=== PATIENT | female | born 1975 | race Caucasian/White ===

== ENCOUNTER 2018-02-21 12:24 | Emergency (ER) | payer MEDICAID, SELFPAY ==
[2018-02-21 12:25] VITALS: BP 154/116; PULSE 104; RESP 17; TEMP 36.1; O2SAT 97; BMI 46.7
--- NOTE | 2018-02-21 12:34 | RAD_ITS ---
STUDY: X-RAY - LEFT FOOT CLINICAL: Female, 42 years old. Lateral pain following injury. TECHNIQUE: 3 view(s) of the foot. COMPARISON: Comparison is made with prior study dated April 23, 2017. FINDINGS: There is a plantar calcaneal spur. Normal visualized subtalar, talonavicular, calcaneocuboid, tarsal and tarsometatarsal articulations. Cancellous screw is seen in the proximal portion of the fifth metatarsal. This is unchanged. Normal metatarsophalangeal joint of the great toe. There is a bipartite tibial sesamoid. Normal interphalangeal joint of the great toe. Normal phalanges of the great toe. Normal second through fifth metatarsophalangeal joints. Normal interphalangeal joints and phalanges of the lesser toes. The soft tissue structures are unremarkable. RAD/Foot min 3 Views IMPRESSION: Status post cancellous screw fixation at the base of the fifth metatarsal. Small plantar spur. No acute abnormality is seen. Electronically Signed: Estevan Ledezma MD at 12:54 EDT Tel [phone], Service support ,
[2018-02-21 13:08] VITALS: BP 143/73; PULSE 86; RESP 15; O2SAT 97
--- NOTE | 2018-02-21 13:13 | ED.DCSUM_ITS ---
- ER Visit Summary Date of Service: 02/21/18 Chief Complaint: [Injury left foot History of Present Illness: ] Patient presents with injury to her left foot that occurred this morning while she was walking down some steps. Patient states that she missed a step and jammed her foot injuring it. Patient was able to catch herself and and actually fall the ground. Patient had prior fracture to that left foot about a year ago and has a screw in the fifth metacarpal. Patient able to bear some weight but painful. Physical Examination: [Left foot-patient has tenderness over the dorsal lateral aspect of the left foot and over the fifth metatarsal. No obvious deformity. Minimal soft tissue swelling. No ecchymosis or bruising noted. Neurovascularly intact.] Test Results: [X-ray of the left foot obtained showed no fractures] Emergency Department Course and Treatment: [Salvatore wrap and crutches] Treatment Plan: [Patient received 12 Barbeau for severe pain as she states ibuprofen does not help her pain at home.] Disposition: [Discharged home in stable condition ] Impression: [Left foot contusion/sprain] This note was generated with [employer] dictation software. It may contain incorrect words, spelling, and punctuation that were not noted in review of the chart prior to signing ED Disposition - Plan for ED Patient: Chief Complaint: Lower Extremity Injury Referrals: Care Physician,No Primary [Primary Care Provider] -
--- NOTE | 2018-02-21 13:13 | ED.DEP ---
ED Disposition - Plan for ED Patient: Chief Complaint: Lower Extremity Injury Instructions: ED Sprain Foot Prescriptions: Hydrocodone Bitart/Apap 5-325 [[place] 5MG-325MG] 1 tab PO Q4H PRN PRN 2 Days #10 tab PRN Reason: Pain Referrals: Care Physician,No Primary [Primary Care Provider] - Enid Adhikair DO [STAFF PHYSICIAN] - 5-7 Days
== END 2018-02-21 13:26 | disposition home or self-care (01) ==
LOC: ED 12:38
PROVIDERS: Emergency Provider Emergency Medicine
DX: S90.32XA Contusion of left foot, initial encounter (principal); S93.602A Unspecified sprain of left foot, initial encounter; X50.9XXA Other and unspecified overexertion or strenuous movements or postures, initial encounter; Y93.01 Activity, walking, marching and hiking; Y92.008 Other place in unspecified non-institutional (private) residence as the place of occurrence of the external cause; Y99.8 Other external cause status
CPT/HCPCS: 73630; 99283

== ENCOUNTER 2019-02-09 04:35 | Emergency (ER) | payer OTHER, SELFPAY ==
[2019-02-09 04:35] VITALS: BP 182/101; PULSE 112; RESP 18; TEMP 36.2; O2SAT 94; BMI 49.4
--- NOTE | 2019-02-09 04:38 | ED.RN ---
CALL LUIS BARROSO AT [phone] WHEN DISCHARGED FOR TRANSPORTATION
--- NOTE | 2019-02-09 04:42 | RAD_ITS ---
STUDY: X-RAY - LEFT HAND REASON FOR EXAM: Female, 43 years old. Slammed hand in door, pain in thumb and wrist TECHNIQUE: 3 view(s) of the hand. COMPARISON: 11/09/2015 FINDINGS: Normal radiocarpal articulation. Normal distal radioulnar joint. Normal visualized carpal bones. Normal carpal articulations Normal carpometacarpal articulation of the thumb. Normal second through fifth carpometacarpal joints. Healed fifth metatarsal boxer type injury with otherwise normal metacarpi. Normal metacarpophalangeal joint of the thumb. Normal interphalangeal joint of the thumb. Normal proximal and distal phalanges of the thumb. Normal metacarpophalangeal joints of the second through fifth fingers. Normal proximal and distal interphalangeal joints of the second through fifth fingers. Normal phalanges of the second through fifth fingers. The soft tissue structures are unremarkable. RAD/Hand Min 3 Views IMPRESSION: There is no acute displaced fracture or dislocation. Electronically Signed: Lesa Barraza MD at 5:12 EDT , Service support ,
--- NOTE | 2019-02-09 05:26 | ED.VISSUMM ---
- ER Visit Summary Date of Service: 02/09/19 Chief Complaint: Left thumb pain History of Present Illness: The patient is a 43 F who presents with left thumb pain. She was at work working on a car door. She was polishing the door when it shifted and she pinched her thumb between the door and the table it was sitting on. Physical Examination: Afebrile heart rate 112 Patient appears uncomfortable No obvious signs of trauma such as lacerations contusions abrasions or soft tissue swelling but she does have tenderness diffusely over the left thumb without bony deformity no focal bony tenderness brisk capillary refill with normal sensation Test Results: Hand x-ray negative Emergency Department Course and Treatment: Patient advised on supportive care including ice and elevation. She was discharged home. Treatment Plan: [] Disposition: Discharge Impression: Thumb contusion This note was generated with [employer] dictation software. It may contain incorrect words, spelling, and punctuation that were not noted in review of the chart prior to signing ED Disposition - Plan for ED Patient: Referrals: Care Physician,No Primary [Primary Care Provider] -
--- NOTE | 2019-02-09 05:27 | ED.DEP ---
ED Disposition - Plan for ED Patient: Instructions: ED Contusion Upper Ext Referrals: Care Physician,No Primary [Primary Care Provider] -
[2019-02-09 05:40] VITALS: BP 144/98; PULSE 102; RESP 16; O2SAT 97
== END 2019-02-09 05:46 | disposition home or self-care (01) ==
PROVIDERS: Emergency Provider Emergency Medicine
DX: S60.012A Contusion of left thumb without damage to nail, initial encounter (principal); W23.0XXA Caught, crushed, jammed, or pinched between moving objects, initial encounter; Y93.9 Activity, unspecified; Y92.9 Unspecified place or not applicable
CPT/HCPCS: 73130; 99282

== ENCOUNTER 2019-03-11 02:32 | Emergency (ER) | payer OTHER, SELFPAY ==
[2019-03-11 02:33] VITALS: BP 170/106; PULSE 106; RESP 24; TEMP 36.9; O2SAT 97; BMI 50.5
--- NOTE | 2019-03-11 02:45 | ED.RN ---
PER DRUG SCREEN FOLLOWUP WITH [facility]
--- NOTE | 2019-03-11 02:55 | RAD_ITS ---
STUDY: X-RAY - LEFT HAND REASON FOR EXAM: Female, 43 years old. Left hand pain status post crush injury and laceration. TECHNIQUE: 3 view(s) of the hand. COMPARISON: 02/09/2019 FINDINGS: Normal radiocarpal articulation. Normal distal radioulnar joint. Normal visualized carpal bones. Normal carpal articulations Normal carpometacarpal articulation of the thumb. Normal second through fifth carpometacarpal joints. Old healed fracture deformity of the fifth metacarpal Normal metacarpophalangeal joint of the thumb. Normal interphalangeal joint of the thumb. Normal proximal and distal phalanges of the thumb. Normal metacarpophalangeal joints of the second through fifth fingers. Normal proximal and distal interphalangeal joints of the second through fifth fingers. Normal phalanges of the second through fifth fingers. Mild soft tissue swelling overlying the ulnar aspect of the hand. RAD/Hand Min 3 Views IMPRESSION: Ulnar soft tissue swelling of the hand with no underlying fracture or dislocation. Electronically Signed: Blaine Gabriel MD at 3:26 EDT Tel , Service support ,
[2019-03-11] MEDS: Diphth,Pertuss(Acell),Tet Vac 0.5 ML Vial IM (03:03)
--- NOTE | 2019-03-11 03:42 | ED.VISSUMM ---
- ER Visit Summary Date of Service: 03/11/19 Chief Complaint: Left hand injury History of Present Illness: The patient is a 43 F who was at work tonight. Patient states she was walking past a conveyor belt when 1 of the parts fell off the conveyor belt striking her left hand. She is a laceration noted along the fifth MCP joint. She is right-hand dominant. Physical Examination: Blood pressure is 170/106, otherwise vitals normal. Patient sitting upright in bed no acute distress. She is anxious. Left upper extremity examination with a 2 cm laceration on the proximal phalanx and over the MCP of the left fifth finger. There is mild bony tenderness. No deformity noted. She has normal cap refill and sensation. Test Results: Left hand x-rays reveal ulnar soft tissue swelling with no evidence of fracture. Emergency Department Course and Treatment: Tetanus update is provided. Wound was locally anesthetized with 2 cc of 1% lidocaine. Wound is irrigated and skin is closed with 4 simple interrupted sutures of 5-0 nylon. Dressing is applied and wound care is discussed. She will follow-up with med . Treatment Plan: [] Disposition: Discharge Impression: Left hand laceration status post suture This note was generated with [employer] dictation software. It may contain incorrect words, spelling, and punctuation that were not noted in review of the chart prior to signing ED Disposition - Plan for ED Patient: Disposition: Home or Assisted Living Instructions: ED Laceration Hand Referrals: JANELLE LUIS [GROUP OF PHYSICIANS] - 7 Days for suture removal
[2019-03-11 04:51] VITALS: PULSE 87; RESP 18; O2SAT 99
--- NOTE | 2019-03-11 04:52 | ED.RN ---
THIS NURSE REVIEWED D/C INSTRUCTIONS WITH PT. PT VERBALIZED UNDERSTANDING OF INSTRUCTIONS. PT DENIES FURTHER NEEDS OR QUESTIONS AT THIS TIME. PT AMBULATES FROM ROOM ON OWN WITHOUT ASSISTANCE FROM STAFF
== END 2019-03-11 04:53 | disposition home or self-care (01) ==
PROVIDERS: Emergency Provider Emergency Medicine
DX: S61.412A Laceration without foreign body of left hand, initial encounter (principal); Z23 Encounter for immunization; J45.909 Unspecified asthma, uncomplicated; I10 Essential (primary) hypertension; W26.8XXA Contact with other sharp object(s), not elsewhere classified, initial encounter; Y93.01 Activity, walking, marching and hiking; Y92.89 Other specified places as the place of occurrence of the external cause; Y99.0 Civilian activity done for income or pay
CPT/HCPCS: 12001; 73130; 90471; 90715; 99283

== ENCOUNTER 2019-09-20 17:39 | Emergency (ER) | payer MEDICAID, SELFPAY ==
[2019-09-20 17:41] VITALS: BP 126/87; PULSE 103; RESP 20; TEMP 36.3; O2SAT 96; BMI 48.9
--- NOTE | 2019-09-20 17:56 | RAD_ITS ---
STUDY: X-RAY CHEST REASON FOR EXAM: Female, 43 years old. COUGH FOR A MONTH BUT GETTING WORSE TECHNIQUE: 2 views COMPARISON: Prior chest radiograph of February 24, 2016 FINDINGS: The lungs are clear and expanded. There is no demonstrated pleural abnormality. Normal size heart. Normal mediastinum and misti. Normal visualized pulmonary arteries. Normal visualized aortic arch and descending thoracic aorta. Degenerative disc findings of the lumbar spine and an increase lower thoracic kyphosis. Normal visualized ribs, clavicles, and shoulders. Status post cholecystectomy. RAD/Chest PA and Lateral IMPRESSION: No acute cardiopulmonary findings or changes. Negative for consolidation, atelectasis, pleural effusion or cardiomegaly. Electronically Signed: Katelynn Cade MD at 18:29 EST , Service support ,
--- NOTE | 2019-09-20 17:57 | ED.DCSUM_ITS ---
- ER Visit Summary Date of Service: 09/20/19 Chief Complaint: Cough and chest pain History of Present Illness: The patient is a 43 F who presents with cough and chest pain that is been getting worse over the past couple days. Patient states she started having pain in her upper chest last night that is worse with coughing and deep breathing. Patient describes the pain is constant and aching but sharp with coughing and deep breathing. Patient denies any fevers or chills. Patient denies any sputum production. Patient denies any rhinorrhea, sore throat, sinus pressure, headache, nausea, vomiting, or diarrhea. Physical Examination: Vital signs are stable. Patient is afebrile. Patient is in no acute distress. Neck is supple. Trachea is midline. There is no JVD. Heart was regular rate and rhythm. Lungs showed scattered rhonchi. There is good respiratory effort noted. Abdomen is soft. Bowel sounds are normal. There is no tenderness. Cranial nerves II through XII are intact. There are no focal motor or sensory deficits noted. Extremities are intact. There is no calf tenderness or edema. Test Results: PA and lateral chest x-ray was obtained. There is no acute cardiopulmonary process. This was interpreted by the radiologist and myself. Emergency Department Course and Treatment: Patient was advised that this is most likely a bronchitis which is a viral infection. Patient was instructed to follow-up with her primary care physician in 5 to 7 days. Patient was instructed to take Tylenol or ibuprofen as needed for pain. Patient understood and was agreeable with the plan. All questions were answered. Disposition: Discharge home Impression: Viral bronchitis This note was generated with [employer] dictation software. It may contain incorrect words, spelling, and punctuation that were not noted in review of the chart prior to signing ED Disposition - Plan for ED Patient: Disposition: Home or Assisted Living Diagnosis: Viral bronchitis Instructions: BRONCHITIS, No Antibiotic (Adult) Prescriptions: Albuterol Inhaler [Ventolin Hfa] 2 puff INHALATION Q4H PRN PRN #1 inhaler PRN Reason: Wheezing Prescription Printed Referrals: Care Physician,No Primary [Primary Care Provider] - Donny Martinez MD [STAFF PHYSICIAN] - 5-7 Days
[2019-09-20 18:54] VITALS: RESP 16
== END 2019-09-20 18:54 | disposition home or self-care (01) ==
PROVIDERS: Emergency Provider Emergency Medicine
DX: J20.8 Acute bronchitis due to other specified organisms (principal); E66.9 Obesity, unspecified
CPT/HCPCS: 71046; 99282

== ENCOUNTER 2019-11-02 10:43 | Emergency (ER) | payer MEDICAID, SELFPAY ==
[2019-11-02 10:45] VITALS: BP 152/93; PULSE 87; RESP 18; TEMP 36.7; O2SAT 97; BMI 48.0
--- NOTE | 2019-11-02 11:07 | CT_ITS ---
STUDY: CT ABDOMEN AND PELVIS WITHOUT CONTRAST REASON FOR EXAM: Female, 43 years old. LT FLANK PAIN RADIATING TO LT SIDE -- HX-KIDNEY STONES -- SURG-GB,TUBAL, RADIATION DOSAGE (If Supplied By Facility): CTDIvol = ( 33.60 ) mGy, DLP = ( 1889.03 ) mGycm TECHNIQUE: Transaxial images were obtained from the dome of the diaphragm to the symphysis pubis without oral contrast, and without intravenous contrast. Sagittal and coronal images were reconstructed. Individualized dose optimization techniques were used for this CT. COMPARISON: None. FINDINGS: The visualized lung bases are unremarkable. The visualized portions of the heart are within normal limits. 5 mm calcified granuloma in the posterior superior aspect of the right lobe of the liver. There are surgical clips in the gallbladder fossa consistent with a prior cholecystectomy. Normal spleen. Normal pancreas. Normal bilateral adrenal glands. Tiny calculus in the mid posterior pole of the right kidney. Normal left kidney. Normal visualized stomach. Normal small intestine. Normal colon. The appendix is visualized and appears normal. Normal abdominal aorta. Normal inferior vena cava. There is borderline retroperitoneal lymphadenopathy with enlarged nodes no greater than 10mm in the short axis diameter. Normal urinary bladder. Normal abdominal wall. Degenerative changes and spondylosis at the T11-T12 region. CT/Abdomen/Pelvis without Cont IMPRESSION: No acute abnormality is seen. Electronically Signed: Estevan Ledezma, at 12:48 EST , Service support ,
--- NOTE | 2019-11-02 11:08 | ED.VISSUMM ---
- ER Visit Summary Date of Service: 11/02/19 Chief Complaint: Atraumatic left flank pain History of Present Illness: The patient is a 43 F history of prior kidney stones, cholecystectomy and tubal ligation. Patient says she had 2-day history of left flank pain is gotten worse. No radiation. Nothing particularly makes it better or worse. She denies any fall or trauma. She denies any dysuria or hematuria. Denies any fever or chills. No trouble breathing or cough. Physical Examination: Middle-aged female. Vital signs are stable afebrile. She does not look septic or toxic. She is in no distress. H EENT exam unremarkable. Neck nontender. Lungs clear to auscultation bilaterally. Equal symmetrical. Heart regular rate and rhythm no murmur. Rate about 85. Anterior chest wall nontender. Abdomen obese but soft nontender normal bowel sounds no peritoneal signs. No abdominal tenderness. Back she has right CVA tenderness is reproducible. This could be musculoskeletal pain. There is no signs of trauma. There is no redness or warmth or bruising. Spine is nontender. Extremities moves all 4. Neurovascular intact. Nontender no edema no cords. Neurologically she is awake alert with no focal motor deficits. Test Results: Chemistries normal normal creatinine and gap. UA 10-25 white cells no epithelial cells no red cells no nitrates 3+ bacteria culture will be sent. CT flank study shows no acute abnormality read both by the radiologist and reviewed by myself. There is no obvious kidney stone. No hydronephrosis or hydroureter. Emergency Department Course and Treatment: Left flank pain with history of kidney stones. It is reproducible this may be musculoskeletal but she denies any trauma or injury. Should be treated with IV Toradol. Labs and CT will be obtained along with urinalysis. Doing well on repeat exam at 1440 4 PM. She and I discussed diagnosis and treatment plan and follow-up. Treatment Plan: Urine culture be sent. Given her urine and the flank pain and no stone should be treated for suspected UTI. Given a dose of Rocephin IV for possible pyelonephritis. With the patient not looking septic, toxic or dehydrated. And afebrile cart with her being discharged home be treated as an outpatient. Keflex 500 4 times daily for 10 days. Follow-up with her primary care physician. Tylenol Motrin for pain. Disposition: Discharge Impression: Acute left flank pain secondary to Pyelonephritis This note was generated with [employer] dictation software. It may contain incorrect words, spelling, and punctuation that were not noted in review of the chart prior to signing ED Disposition - Plan for ED Patient: Disposition: Home or Assisted Living Instructions: PYELONEPHRITIS, Female (Adult) Prescriptions: Cephalexin [Keflex] 500 mg PO Q6 #40 cap Prescription Printed Referrals: Andrea Stone MD [NON-STAFF] - 3-5 Days if not improving Additional Instructions: Fluids and rest. Tylenol and Motrin for pain. Antibiotic Keflex 1 pill 4 times a day for 10 days. Follow-up with an eye doctor. Return if feeling worse.
[2019-11-02 11:41] LABS: Anion Gap 4 (5-15); BUN 9 mg/dL (7-18); BUN/Creat Ratio 13.2 RATIO (10-20); Chloride 107 mmol/L (98-107); Creatinine, Serum 0.68 mg/dL (0.55-1.02); EST Glomerular Filtration Rate 100 mL/min (>60); Est Glom Filt Rate - Afr Amer 121 mL/min (>60); Estimated Creatinine Clearance 104.81 ml/min; Glucose 96 mg/dL (74-106); Potassium 3.9 mmol/L (3.5-5.1); Sodium Level 140 mmol/L (136-145)
[2019-11-02] MEDS: Ketorolac 30 MG/ML Syringe IV (12:04)
[2019-11-02 12:19] LABS: Color, Urine Yellow (Yellow); Glucose, Dipstick Normal (Normal); Ketone-Dipstick Negative (Negative); Leukocyte Esterase-Dipstick 500 /ul (Negative); Mucous, Urine 0 SEEN /hpf (<or=2+); Nitrite-Dipstick Negative (Negative); Occult Blood-Urine Negative /ul (Negative); Protein-Dipstick Negative (Negative); Red Blood Cells-Urine 0 SEEN /hpf (0-5); Urine Bilirubin Dipstick Negative (Negative); Urine Clarity Sl. Cloudy (Clear); Urine Urobilinogen Normal (Normal); Urine pH 6.5 (5.0 - 8.0)
[2019-11-02 12:28] LABS: Bacteria 3+ /hpf (None Seen); Squamous Epithelial Cells - UA 0-5 SEEN /hpf (5-10); White Blood Cells 10-25 SEEN /hpf (0-5)
--- NOTE | 2019-11-02 13:58 | ED.DEP ---
ED Disposition - Plan for ED Patient: Disposition: Home or Assisted Living Instructions: PYELONEPHRITIS, Female (Adult) Prescriptions: Cephalexin [Keflex] 500 mg PO Q6 #40 cap Prescription Printed Referrals: Andrea Stone MD [NON-STAFF] - 3-5 Days if not improving Additional Instructions: Fluids and rest. Tylenol and Motrin for pain. Antibiotic Keflex 1 pill 4 times a day for 10 days. Follow-up with an eye doctor. Return if feeling worse.
[2019-11-02] MEDS: Ceftriaxone 1 GM/50 ML BAG IV (14:19)
[2019-11-02 14:58] VITALS: BP 124/77; PULSE 72; RESP 16; O2SAT 98
== END 2019-11-02 15:00 | disposition home or self-care (01) ==
PROVIDERS: Emergency Provider Emergency Medicine
DX: N10 Acute pyelonephritis (principal); R10.9 Unspecified abdominal pain; Z87.442 Personal history of urinary calculi
CPT/HCPCS: 74176; 80048; 81001; 87086; 87088; 96365; 96375; 99283; J7050; A4216

== ENCOUNTER 2021-12-03 16:37 | Emergency (ER) | payer OTHER, MEDICAID, SELFPAY ==
[2021-12-03 16:37] VITALS: BP 179/96; PULSE 100; RESP 18; TEMP 36.1; O2SAT 97; BMI 43.0
--- NOTE | 2021-12-03 17:03 | EDS_ITS ---
HPI History of Present Illness HPI Narrative: Patient with right knee injury that occurred 3 days ago. Patient states she twisted her right knee while at work. Patient denies any snapping or popping sensation. Patient states her pain is worse with standing and with ambulation. Patient states it is better with rest. Patient denies any paresthesias or weakness. Patient denies any other injuries. Chief Complaint: Lower Extremity Injury Informant: patient Occured/Mechanism Mechanism/Context: Yes work related Onset/Context/Timing Onset: Days (3) Context: Sudden Onset Timing: Continuous Quality of Pain: Sharp and Throbbing Worsened by: Standing, ambulation Relieved by: Rest Associated Symptoms Associated Symptoms: Negative for Parasthesia, Weakness and Loss of Funtion PFSH PFSH Medical History no medical history no medical history Home Medications albuterol sulfate 2 puff INHALATION Q4H PRN PRN #1 inhaler 09/20/19 [Rx Last Taken Unknown] cephalexin 500 mg PO Q6 #40 cap 11/02/19 [Rx Last Taken Unknown] Allergy/AdvReac Type Severity Reaction Status Date / Time naproxen [From Naprosyn] AdvReac Vomiting Verified 12/03/21 16:39 Surgical History Hx of cholecystectomy Hx of foot surgery Hx of tonsillectomy Social History Smoking Status: Never smoker ROS ROS ED Constitutional Constitutional ED: Denies chills or fever(s) Eyes Eyes: Denies blurry vision or change in vision ENT ENT ED: Denies rhinorrhea or sore throat Cardiovascular Cardiovascular: Denies chest pain or palpitations Respiratory/Chest Respiratory/Chest: Denies cough or dyspnea Gastrointestinal Gastrointestinal: Denies nausea or vomiting Genitourinary Genitourinary ED: Denies dysuria or hematuria Musculoskeletal Musculoskeletal: Denies back pain or neck pain Integumentary Denies abscess or rash Neurologic Neurologic: Denies headache(s) or weakness Allergic/Immunologic Allergic/Immunologic ED: Denies mouth swelling or urticaria EXAM Physical Exam Const Vital Signs: 12/03/21 16:37 Temperature 97 F L Temperature Source Temporal Pulse Rate 100 Respiratory Rate 18 Blood Pressure 179/96 H Blood Pressure Mean 123 Pulse Ox 97 Oxygen Delivery Method Room Air Positive well nourished, well developed and obese General Appearance ED: well developed Nutritional Appearance: obese HEENT Reports moist mucous membranes Neck full ROM Extremity Extremity Narrative: There is diffuse tenderness over the right knee. There is no bony crepitance or step-off. There is no effusion. Range of motion was limited in all motions of the right knee secondary to pain. There is no laxity appreciated. However there was some guarding noted on examination. Strength is 5/5 bilaterally in the lower extremities. There are no sensory deficits noted. Posterior tibial pulses are equal bilaterally. Neuro oriented x3, CN's II-XII intact bilaterally, moves all extremities and no sensor y deficits noted Sensorium / Orientation: alert Motor Exam: strength 5/5 throughout Psych mental status grossly normal MDM MDM MDM Narrative Medical decision making narrative: X-rays of the right knee were obtained. There are 4 views. On my interpretation, there is no acute fracture. There is no dislocation. There is no soft tissue swelling. Radiologist also interpreted the x-rays and agrees. Patient was advised of her findings. Patient was instructed to ice and elevate the right knee. Patient was instructed to take Tylenol or ibuprofen as needed for pain. Patient was instructed to return if worse in any way. Patient was instructed to follow-up with her primary care physician in 5 to 7 days for reevaluation. Patient understood and was agreeable with the plan. All questions were answered. Radiography Diagnostic Testing: Clinical Impression(s) from Imaging Studies Knee X-Ray 12/03/21 17:15 IMPRESSION: Normal x-ray examination of the knee. Electronically Signed: Aaron Flynn MD at 17:48 EST , Discharge Plan Triage Chief Complaint: Lower Extremity Injury ED Provider: Guillermo Hinton Dx/Rx/DC Orders Clinical Impression: Right knee sprain Instructions: ED Knee Sprain Prescriptions: No Action albuterol sulfate 1 INHALER inhaler 2 puff inhalation Q4H PRN PRN (Reason: Wheezing) Qty: 1 RF: 0 cephalexin 500 MG capsule 500 mg PO Q6 Qty: 40 RF: 0 Primary Care Provider: Care Physician,No Primary Referrals: Rafita St MD [STAFF PHYSICIAN] - 5-7 Days Care Physician,No Primary [Primary Care Provider] - Disposition Disposition: Home, Self Care
--- NOTE | 2021-12-03 17:15 | RAD_ITS ---
STUDY: X-RAY - RIGHT KNEE REASON FOR EXAM: Female, 45 years old. Injury/Pain TECHNIQUE: 4 view(s) of the knee. COMPARISON: None. FINDINGS: Normal visualized distal femur. Normal visualized proximal tibia and fibula. Normal proximal tibiofibular articulation. Fragmentation of the tibial tubercle consistent with healed [place]-Schlatter disease. Normal medial femorotibial compartment. Normal lateral femorotibial compartment. Normal patellofemoral articulation. The soft tissue structures are unremarkable. RAD/Knee 4 or More Views IMPRESSION: Normal x-ray examination of the knee. Electronically Signed: Aaron Flynn MD at 17:48 EST ,
== END 2021-12-03 18:47 | disposition home or self-care (01) ==
PROVIDERS: Emergency Provider Emergency Medicine; Visit Provider Emergency Medicine
DX: S83.91XA Sprain of unspecified site of right knee, initial encounter (principal); E66.9 Obesity, unspecified; Y99.0 Civilian activity done for income or pay; X50.1XXA Overexertion from prolonged static or awkward postures, initial encounter
CPT/HCPCS: 73564; 99282

== ENCOUNTER 2022-04-02 15:16 | Emergency (ER) | payer OTHER, MEDICAID, SELFPAY ==
[2022-04-02 15:16] VITALS: BP 153/106; PULSE 100; RESP 18; TEMP 35.9; BMI 47.5
--- NOTE | 2022-04-02 15:27 | RAD_ITS ---
EXAM: XR LEFT FOOT COMPLETE, 3 OR MORE VIEWS CLINICAL INDICATION: injury TECHNIQUE: Frontal, lateral and oblique views of the left foot. This report was created using [employer] report generation technology. COMPARISON: XR Foot dated 02/21/2018 FINDINGS: BONES/JOINTS: Surgical screw remains in place proximal and midportion of the fifth metatarsal. Plantar calcaneal spur noted. No acute fracture. No subluxation. Normal alignment. Preservation of the joint space. No sclerotic or destructive changes observed. SOFT TISSUES: Unremarkable. No soft tissue swelling or gas. RAD/Foot min 3 Views IMPRESSION: No acute bone or joint abnormality. No interval change. Electronically Signed: Leighton Martinez MD at 15:49 EDT ,
--- NOTE | 2022-04-02 15:28 | ED.VIS.LOWEX ---
HPI History of Present Illness Chief Complaint: Lower Extremity Injury Informant: patient Narrative Narrative: 46-year-old female presents with left foot pain. Patient states that yesterday while going up some steps she thought she had negotiated the last step but hit her toes on the top of the stair. She notes pain of the second toe. She notes that it radiates up onto her foot. She denies any other injuries. PFSH PFSH Medical History no medical history no medical history Home Medications albuterol sulfate 90 mcg/actuation aerosol inhaler 2 puff inhalation Q4H PRN PRN Wheezing ##1 09/20/19 [Rx Last Taken Unknown] cephalexin 500 mg capsule 500 mg PO Q6 #40 caps 11/02/19 [Rx Last Taken Unknown] hydrocodone-acetaminophen 5-325mg 5mg-325mg 1 tab PO Q6H PRN PRN Pain 3 days #10 TABLETS 04/02/22 [Rx Last Taken Unknown] Allergy/AdvReac Type Severity Reaction Status Date / Time naproxen [From Naprosyn] AdvReac Vomiting Verified 12/03/21 16:39 Surgical History Hx of cholecystectomy Hx of foot surgery Hx of tonsillectomy Social History (Updated 04/02/22 @ 15:[address] Wade Khan DO) current gender identity: female Smoking Status: Never smoker ROS ROS ED Constitutional Constitutional ED: Denies chills or weight loss Eyes Eyes: Denies change in vision or diplopia ENT ENT ED: Denies ear pain, rhinorrhea or sore throat Cardiovascular Cardiovascular: Denies chest pain, orthopnea, palpitations or racing heartbeat Respiratory/Chest Respiratory/Chest: Denies cough, dyspnea or orthopnea Gastrointestinal Gastrointestinal: Denies abdominal pain, diarrhea, nausea or vomiting Genitourinary Genitourinary ED: Denies dysuria, hematuria or urinary frequency Musculoskeletal Musculoskeletal: Reports other Details: See history of present illness ; Denies arthralgias or myalgias Integumentary Denies abscess or rash Neurologic Neurologic: Denies headache(s) or weakness Psychiatric Psychiatric: Denies anxiety, depression, suicidal ideation or suicidal thoughts Endocrine Endocrinology: Denies polydipsia, polyphagia or polyuria Allergic/Immunologic Allergic/Immunologic ED: Denies mouth swelling, tongue swelling or urticaria EXAM Physical Exam Const Vital Signs: 04/02/22 15:16 04/02/22 15:16 Temperature 96.7 F L 96.7 F L Temperature Source Temporal Temporal Pulse Rate 100 100 Respiratory Rate 18 18 Blood Pressure 153/106 H 153/106 H Blood Pressure Mean 121 121 Positive well nourished, well developed and obese General Appearance ED: well developed Nutritional Appearance: obese HEENT Reports normocephalic, head/scalp atraumatic and moist mucous membranes Eyes PERRL and EOMs intact bilaterally Neck no lymphadenopathy, supple and no JVD Resp normal respiratory effort and clear to auscultation bilaterally Cardio regular rate, regular rhythm and no murmurs GI normal to inspection, nondistended, normoactive bowel sounds and non-tender Palpation: soft Back/Spine no CVA tenderness and normal ROM Extremity Extremity Narrative: Patient reports tenderness to palpation of the second toe and the third toe. No obvious deformity. No significant swelling or ecchymosis. General Extremety ED: Negative for edema General Extremity: Negative for edema Neuro oriented x3 and CN's II-XII intact bilaterally Sensorium / Orientation: alert Motor Exam: strength 5/5 throughout Psych mental status grossly normal Mood & Affect: Negative for depressed or tearful Skin no rashes or lesions noted and no wounds MDM MDM MDM Narrative Medical decision making narrative: My impression of the plain films of the left foot is no acute fracture. Patiently placed in a postoperative shoe. Follow-up podiatry 10 to 14 days if not improved Discharge Plan Triage Chief Complaint: Lower Extremity Injury ED Provider: Wade Khan Dx/Rx/DC Orders Clinical Impression: Sprain of toe, second, left Instructions: ED Toe Sprain Prescriptions: New hydrocodone-acetaminophen [hydrocodone-acetaminophen] 5-325 mg tablet 1 tab PO Q6H PRN PRN (Reason: Pain) 3 Days Qty: 10 0RF No Action albuterol sulfate 1 INHALER inhaler 2 puff inhalation Q4H PRN PRN (Reason: Wheezing) Qty: 1 0RF cephalexin 500 MG capsule 500 mg PO Q6 Qty: 40 0RF Primary Care Provider: Fransisco Angel Referrals: Baldo Borges DPM [STAFF PHYSICIAN] - As Needed (for podiatry if not improving) Care Physician,No Primary [NON-STAFF] - Disposition Disposition: Home, Self Care
== END 2022-04-02 15:53 | disposition home or self-care (01) ==
PROVIDERS: Emergency Provider Emergency Medicine; PCP Internal Medicine; Visit Provider Emergency Medicine
DX: S93.505A Unspecified sprain of left lesser toe(s), initial encounter (principal); E66.9 Obesity, unspecified; X58.XXXA Exposure to other specified factors, initial encounter
CPT/HCPCS: 73630; 99283

== ENCOUNTER 2022-06-01 11:08 | Outpatient (CLI) | payer OTHER, MEDICAID, SELFPAY ==
--- NOTE | 2022-06-01 11:12 | CT_ITS ---
STUDY: CT BRAIN WITHOUT CONTRAST REASON FOR EXAM: Female, 46 years old. Headaches. RADIATION DOSAGE (If Supplied By Facility): CTDIvol = ( 44.99 ) mGy, DLP = ( 745.49 ) mGycm TECHNIQUE: Transaxial CT imaging of the brain was performed without administration of intravenous contrast material. Individualized dose optimization techniques were used for this CT. COMPARISON: No relevant priors. FINDINGS: Normal soft tissue structures. Normal calvarium. Normal size ventricles and extra-axial spaces for the patient''s age. Normal white matter tracts of the cerebral hemispheres. Normal basal ganglia and thalami. Normal brainstem. Normal cerebellum. There is no intracranial hemorrhage. There are no findings of an acute ischemic infarction. Minimal degree of mucosal thickening along the medial wall of the left maxillary sinus. CT/Brain/Head without Contrast IMPRESSION: Minimal degree of mucosal thickening along the medial wall of the left maxillary sinus. Electronically Signed: Estevan Ledezma MD at 12:08 EDT ,
== END 2022-06-01 23:59 | disposition home or self-care (01) ==
LOC: CT 11:10
PROVIDERS: PCP Internal Medicine; Referring Provider Nurse Practitioner; Visit Provider Nurse Practitioner
DX: R51.9 Headache, unspecified (principal)
CPT/HCPCS: 70450; 85652; 86140

== ENCOUNTER → 2022-06-01 | Outpatient (CLI) | payer OTHER, MEDICAID, SELFPAY ==
[2022-06-01 10:56] LABS: Erythrocyte Sedimentation Rate 18 mm/hr (0-30)
== END | disposition home or self-care (01) ==
LOC: LABSPEC 10:35
PROVIDERS: PCP Internal Medicine; Referring Provider Nurse Practitioner; Visit Provider Nurse Practitioner
DX: R51.9 Headache, unspecified (principal)
CPT/HCPCS: 85652; 86140

== ENCOUNTER 2023-12-25 11:41 | Emergency (ER) | payer MEDICAID, SELFPAY ==
[2023-12-25 11:42] VITALS: BP 154/97; PULSE 97; RESP 16; TEMP 36.2; O2SAT 100; BMI 47.5
[2023-12-25 12:13] VITALS: O2SAT 97
--- NOTE | 2023-12-25 12:13 | EKG12_ITS ---
Test Reason : CP Blood Pressure : / mmHG Vent. Rate : 096 BPM Atrial Rate : 096 BPM P-R Int : 156 ms QRS Dur : 080 ms QT Int : 360 ms P-R-T Axes : 063 -10 056 degrees QTc Int : 454 ms Normal sinus rhythm Minimal voltage criteria for LVH, may be normal variant ( R in aVL ) Borderline ECG Confirmed by MIREYA GALLEGOS, MATA ([id number]), editorial clerk ZACKARY CABEZAS ([id number]) on 12/26/2023 8:59:36 AM Referred By: MESFIN/KULDEEP Confirmed By:MATA GOMES MD
--- NOTE | 2023-12-25 12:14 | EDS_ITS ---
HPI History of Present Illness Chief Complaint: Chest Pain Detail of Chief Complaint: Chest pain Informant: patient Narrative Narrative: Patient presents with chest pain that started 2 days ago. She describes a pressure heaviness in the left chest that does not radiate anywhere. Complains of a headache. She denies falls or injuries. She has not done any lifting. She denies nausea or vomiting. She denies diaphoresis. She does state that she notices it more when she is active. Never completely resolves. She has no history of PE or DVT. No family history of heart disease. She herself has never had a heart attack or stent. She has history of hypertension. Patient was seen by her primary care physician and referred to the emergency department to workup her chest pain. PFSH PFSH Home Medications albuterol sulfate 90 mcg/actuation aerosol inhaler 2 puff inhalation Q4H PRN PRN Wheezing ##1 09/20/19 [Rx Last Taken Unknown] lisinopril 10 mg tablet 10 mg PO DAILY 12/25/23 [History Last Taken Unknown] Allergy/AdvReac Type Severity Reaction Status Date / Time naproxen [From Naprosyn] AdvReac Vomiting Verified 12/25/23 11:43 Surgical History Hx of cholecystectomy Hx of foot surgery Hx of tonsillectomy Social History (Updated 04/02/22 @ 15:[address] Wade Khan DO) Smoking Status: Never smoker ROS ROS ED Review of Systems ROS Unobtainable: other Constitutional Constitutional ED: Reports lethargy; Denies chills, fever(s), sweats or weight loss Eyes Eyes: Denies blurry vision, change in vision or diplopia ENT ENT ED: Denies rhinorrhea or sore throat Cardiovascular Cardiovascular: Reports chest pain; Denies orthopnea or racing heartbeat Respiratory/Chest Respiratory/Chest: Denies cough, dyspnea, dyspnea on exertion, orthopnea or sputum Gastrointestinal Gastrointestinal: Denies abdominal pain, diarrhea, nausea or vomiting Genitourinary Genitourinary ED: Denies dysuria, hematuria or urinary frequency Musculoskeletal Musculoskeletal: Denies arthralgias, back pain, myalgias or neck pain Integumentary Denies abscess, Abrasions or rash Neurologic Neurologic: Denies headache(s) or weakness Psychiatric Psychiatric: Denies anxiety, depression or suicidal thoughts Endocrine Endocrinology: Denies polydipsia, polyphagia or polyuria Hematologic/Lymphatic Hematologic/Lymphatic: Denies easy bleeding, easy bruising or lymphadenopathy Allergic/Immunologic Allergic/Immunologic ED: Denies mouth swelling, tongue swelling or urticaria EXAM Physical Exam Const Vital Signs: 12/25/23 11:42 12/25/23 12:13 12/25/23 13:00 Temperature 97.2 F L Temperature Source Temporal Pulse Rate 97 82 Respiratory Rate 16 22 H Blood Pressure 154/97 H 151/72 H Blood Pressure Mean 116 98 Pulse Ox 100 97 98 Oxygen Delivery Method Room Air Room Air Room Air Positive well nourished and well developed General Appearance ED: well developed and NAD HEENT Reports TM's clear and moist mucous membranes normocephalic and atraumatic; Negative for trauma or tenderness Tympanic Membrane ED: Yes TM's clear Eyes PERRL and EOMs intact bilaterally General Eye ED: Negative for pale conjunctiva or scleral icterus Neck no lymphadenopathy, supple and no JVD General: Negative for tenderness Chest Wall inspection of chest normal and palpation of chest normal Chest: Negative for tenderness Resp normal respiratory effort and clear to auscultation bilaterally Effort and Inspection: Negative for respiratory distress or pain with movement Auscultation: Negative for rhonchi, wheezes or diminished lung sounds Cardio regular rate, regular rhythm, S1 normal heart sound, S2 normal heart sound and no murmurs Peripheral Pulses: pulses 2+ throughout GI normal to inspection, nondistended, normoactive bowel sounds, soft to palpation, non-tender, non-distended and no masses Back/Spine no CVA tenderness and no thoracic nor lumbar tenderness Extremity normal to inspection General Extremety ED: Negative for edema General Extremity: Negative for edema Neuro oriented x3, CN's II-XII intact bilaterally, no sensory deficits noted and gait normal Sensorium / Orientation: awake, alert, oriented to person, oriented to place and oriented to time Motor Exam: strength 5/5 throughout and strength abnormal Psych mental status grossly normal Skin no rashes or lesions noted and no wounds Heart Score History: Moderately Suspicious ECG: Normal Age: >45 - <65 years Risk Factors: 1 or 2 Risk Factors Troponin: </= Normal Limit Score: 3 MDM MDM MDM Narrative Medical decision making narrative: Patient presents with continuous chest discomfort for several days. She notices it more with activity not that it necessarily makes it worse. It never resolves. Patient has history of hypertension but no heart history. Denies recent illness. IV line established on arrival. 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 EKG obtained showed a sinus rhythm with rate of 96 bpm with no acute ST segment changes. CBC with differential white count of 11.1 with hemoglobin 11.7 platelet count 352. Chemistries unremarkable. Troponin was normal at 4. D-dimer was normal at 0.48. Chest x-ray was unremarkable. Patient received aspirin on arrival. At this point etiology of her chest pain unclear although suspicion very low for acute coronary syndrome. Her heart score was a 3. She has had continuous pain for days and has an unremarkable EKG and troponin. Recommended follow-up with her primary care physician within next 5 to 7 days. Vies to return if worsening pain, increasing shortness of breath, exertional dyspnea, or condition should worsen anyway. Lab Data Attestation: I reviewed the patient's lab results. Labs: Laboratory Results - last 24 hr 12/25/23 12:05 WBC 11.1 H RBC 4.05 L Hgb 11.7 L Hct 36.0 L MCV 88.9 MCH 28.9 MCHC 32.5 RDW Std Deviation 42.9 RDW Coeff of Bruno 13.2 Plt Count 352 MPV 8.9 Immature Gran % (Auto) 0.400 Neut % (Auto) 60.6 Lymph % (Auto) 31.2 Green % (Auto) 6.6 Eos % (Auto) 0.8 Baso % (Auto) 0.4 Absolute Neuts (auto) 6.7 Absolute Lymphs (auto) 3.46 Nucleated RBC % 0 D-Dimer Quant (PE/DVT) 0.48 Sodium 141 Potassium 3.4 L Chloride 109 H Carbon Dioxide 28.0 Anion Gap 4 L BUN 8 Creatinine 0.69 Estim Creat Clear Calc 146.38 Est GFR (MDRD) Af Amer 118 Est GFR (MDRD) Non-Af 97 BUN/Creatinine Ratio 11.6 Glucose 102 Calcium 9.0 Troponin I High Sens 4 Radiography Diagnostic Testing: Clinical Impression(s) from Imaging Studies Chest X-Ray 12/25/23 12:24 IMPRESSION: No acute abnormality is present. Electronically Signed: Estevan Ledezma MD at 12:34 EDT , 1 view chest x-ray obtained interpreted by myself as no evidence of infiltrate or pneumothorax or acute disease process. Radiology in agreement. Discharge Plan Triage Chief Complaint: Chest Pain ED Provider: Michaelle Mock Dx/Rx/DC Orders Clinical Impression: Chest pain Instructions: ED Chest Pain, Uncertain Cause Prescriptions: No Action albuterol sulfate 1 INHALER inhaler 2 puff inhalation Q4H PRN PRN (Reason: Wheezing) Qty: 1 0RF lisinopril 10 mg tablet 10 mg PO DAILY Primary Care Provider: Fransisco Angel Referrals: rFansisco Angel MD [[facility]] - 5-7 Days Disposition Disposition: Home, Self Care
--- NOTE | 2023-12-25 12:24 | RAD_ITS ---
STUDY: X-RAY CHEST REASON FOR EXAM: Female, 48 years old. Chest pain TECHNIQUE: Single AP portable view of the chest. COMPARISON: Comparison is made with prior study dated September 20, 2019. FINDINGS: EKG electrodes are seen. The lungs are clear and expanded. There is no demonstrated pleural abnormality. Normal size heart. Normal mediastinum and misti. Normal visualized pulmonary arteries. Normal visualized aortic arch and descending thoracic aorta. Normal visualized thoracic spine. Normal visualized ribs, clavicles, and shoulders. There is no demonstrated abnormality of the visualized soft tissue structures of the upper abdomen. RAD/Chest 1 View (Portable) IMPRESSION: No acute abnormality is present. Electronically Signed: Estevan Ledezma MD at 12:34 EDT ,
[2023-12-25] MEDS: Aspirin 81 MG TAB.CHEW 324 MG PO (12:25)
[2023-12-25] MEDS: 0.9% Normal Saline (1000mL) 1,000 ML 150 ML IV (12:25)
[2023-12-25 12:36] LABS: Absolute Lymphocyte Count 3.46 X10^3/uL (0.83-4.51); Absolute Neutrophil Count 6.7 X10^3/uL (2.0-7.7); Basophil# 0.04 X10^3/uL; Basophil% 0.4 % (0-1); Eosinophil# 0.09 X10^3/uL; Eosinophils% 0.8 % (0-5); Hemoglobin 11.7 g/dL (12.0-15.0); Lymphocyte # 3.46 X10^3/ul (0.83-4.51); Lymphocyte % 31.2 % (19-41); Mean Corp Hgb Conc 32.5 g/dL (32-36); Mean Corpuscular Hgb 28.9 pg (27.0-32.0); Mean Corpuscular Volume 88.9 fL (81-99); Mean Platelet Vol. 8.9 fl (6.2-12.0); Monocyte# 0.73 X10^3/uL; Monocyte% 6.6 % (0-10); NRBC Flagged by Analyzer 0 % (0-5); Neutrophil # 6.73 X10^3/uL (2.7-7.7); Neutrophil % 60.6 % (47-70); Platelet Count 352 K/mm3 (150-450); RBC Distribution Width CV 13.2 % (11.6-14.6); RBC Distribution Width SD 42.9 fl (35.1-43.9); Red Blood Count 4.05 M/mm3 (4.2-5.4); White Blood Count 11.1 K/mm3 (4.4-11.0)
[2023-12-25 12:44] LABS: Anion Gap 4 (5-15); BUN 8 mg/dL (7-18); BUN/Creat Ratio 11.6 RATIO (10-20); Chloride 109 mmol/L (98-107); Creatinine, Serum 0.69 mg/dL (0.55-1.02); EST Glomerular Filtration Rate 97 mL/min (>60); Est Glom Filt Rate - Afr Amer 118 mL/min (>60); Estimated Creatinine Clearance 146.38 ml/min; Glucose 102 mg/dL (74-106); Potassium 3.4 mmol/L (3.5-5.1); Sodium Level 141 mmol/L (136-145)
[2023-12-25 12:46] LABS: D-Dimer Quantitative (DVT/PE) 0.48 FEU/ug/m (0.27-0.49)
[2023-12-25 13:00] VITALS: BP 151/72; PULSE 82; RESP 22; O2SAT 98
[2023-12-25 13:35] VITALS: BP 149/75; PULSE 78; RESP 18; TEMP 36.2; O2SAT 98
[2023-12-25 14:05] LABS: Reflex Troponin-HS? (from REC) N
[2023-12-25 14:26] LABS: Troponin-I HS 4 pg/mL (3.0-54.0)
== END 2023-12-25 13:41 | disposition home or self-care (01) ==
PROVIDERS: Emergency Provider Emergency Medicine; PCP Internal Medicine; Visit Provider Emergency Medicine
DX: R07.9 Chest pain, unspecified (principal); I10 Essential (primary) hypertension; Z79.899 Other long term (current) drug therapy; Z79.51 Long term (current) use of inhaled steroids
CPT/HCPCS: 71045; 80048; 84484; 85025; 85379; 93005; 99283; J7030

== ENCOUNTER 2024-08-04 06:29 | Emergency (ER) | payer OTHER, SELFPAY ==
[2024-08-04 06:29] VITALS: BP 172/77; PULSE 85; RESP 17; TEMP 36.6; O2SAT 98; BMI 45.6
[2024-08-04 06:32] VITALS: BP 172/77; PULSE 85; RESP 16; TEMP 37.1; O2SAT 97
--- NOTE | 2024-08-04 06:59 | CT_ITS ---
STUDY: CT ABDOMEN AND PELVIS WITHOUT CONTRAST REASON FOR EXAM: Female, 48 years old. LT FLANK PAIN, BURNING WITH URINATION, HX-KS, HANS RADIATION DOSAGE (If Supplied By Facility): CTDIvol = ( 23.98 ) mGy, DLP = ( 1312.33 ) mGycm TECHNIQUE: Transaxial images were obtained from the dome of the diaphragm to the symphysis pubis without oral contrast, and without intravenous contrast. Sagittal and coronal images were reconstructed. Individualized dose optimization techniques were used for this CT. COMPARISON: CT of abdomen and pelvis dated November 02, 2019. FINDINGS: The visualized lung bases are unremarkable. The visualized portions of the heart are within normal limits. Normal liver. Redemonstration of small surgical clip at the posterior dome of the right lobe of the liver. There are surgical clips in the gallbladder fossa consistent with a prior cholecystectomy. Normal spleen. Normal pancreas. Normal bilateral adrenal glands. Right kidney: 2 mm calyceal stone in the midpole. No hydronephrosis or hydroureter is present. No radiopaque ureteral stones. Left kidney: 1 mm calyceal stone in the midpole. No hydronephrosis or hydroureter or radiopaque ureteral stones. No visualized perinephric stranding. 1 mm calyceal stone in the lower pole of the left kidney see image 77/141 series 601.. Normal left kidney. Normal visualized stomach. Normal small intestine. Normal colon. The appendix is visualized and appears normal. Normal abdominal aorta. Normal inferior vena cava. Normal retroperitoneum. Normal urinary bladder. Unremarkable uterus and adnexa. Normal abdominal wall. There are diffuse degenerative changes of the visualized lumbar spine. CT/Abdomen/Pelvis without Cont IMPRESSION: 1. Bilateral nonobstructing kidney stones Electronically Signed: Alexy Roper MD at 8:21 EST ,
[2024-08-04] MEDS: Ketorolac 15 MG/ML Vial IV (07:05)
[2024-08-04 07:14] LABS: Absolute Lymphocyte Count 4.03 X10^3/uL (0.83-4.51); Absolute Neutrophil Count 3.5 X10^3/uL (2.0-7.7); Basophil# 0.05 X10^3/uL; Basophil% 0.6 % (0-1); Eosinophil# 0.16 X10^3/uL; Eosinophils% 1.9 % (0-5); Hematocrit 39.3 % (37-47); Lymphocyte # 4.03 X10^3/ul (0.83-4.51); Mean Corp Hgb Conc 33.1 g/dL (32-36); Mean Corpuscular Volume 87.5 fL (81-99); Mean Platelet Vol. 8.9 fl (6.2-12.0); Monocyte# 0.62 X10^3/uL; Monocyte% 7.4 % (0-10); NRBC Flagged by Analyzer 0 % (0-5); Neutrophil # 3.51 X10^3/uL (2.7-7.7); Neutrophil % 41.7 % (47-70); Platelet Count 362 K/mm3 (150-450); RBC Distribution Width CV 13.5 % (11.6-14.6); Red Blood Count 4.49 M/mm3 (4.2-5.4); White Blood Count 8.4 K/mm3 (4.4-11.0)
[2024-08-04 07:24] LABS: Bacteria 0 SEEN /hpf (None Seen); Mucous, Urine 0 SEEN /hpf (<or=2+); Red Blood Cells-Urine 0 SEEN /hpf (0-5); Squamous Epithelial Cells - UA 0 SEEN /hpf (5-10); White Blood Cells 0 SEEN /hpf (0-5)
--- NOTE | 2024-08-04 07:28 | EX.ED.DYSGE1 ---
HPI History of Present Illness Chief Complaint: Flank Pain Informant: patient Narrative Narrative: Worsening left flank pain since yesterday evening. No radicular symptoms. Nausea vomiting x 1. No fevers or chills. States urine frequency however drink more fluids throughout the night. History of kidney stones in the past. Allergies naproxen causing vomiting. Has tolerated Toradol and ibuprofen in the past. Hypertension history. Denies gastric ulcers history denies history of kidney injury. Multiple kidney stones in the past no interventions last time was a year ago. Prior similar symptoms: Yes PFSH PFSH Home Medications ?Medication ?Instructions ?Recorded ?Last Taken ?Type albuterol sulfate 90 mcg/actuation 2 puff inhalation Q4H PRN PRN 09/20/19 Unknown Rx aerosol inhaler Wheezing ##1 lisinopril 10 mg tablet 10 mg PO DAILY 12/25/23 Unknown History Allergy/AdvReac Type Severity Reaction Status Date / Time naproxen (From Naprosyn) AdvReac Vomiting Verified 08/04/24 06:30 Surgical History Hx of foot surgery Hx of tonsillectomy Hx of cholecystectomy Social History Smoking Status: Never smoker ROS ROS ED Constitutional Constitutional ED: Denies chills, fever(s) or sweats Eyes Eyes: Denies change in vision ENT ENT ED: Denies dysphagia or sore throat Cardiovascular Cardiovascular: Denies chest pain, leg edema, palpitations or racing heartbeat Respiratory/Chest Respiratory/Chest: Denies cough, dyspnea or dyspnea on exertion Gastrointestinal Gastrointestinal: Denies abdominal pain, diarrhea, nausea or vomiting Genitourinary Genitourinary ED: Denies dysuria, hematuria or urinary frequency Musculoskeletal Musculoskeletal: Reports back pain; Denies extremity pain or neck pain Integumentary Denies rash or wounds Neurologic Neurologic: Denies headache(s), paresthesias or weakness EXAM Physical Exam Const Vital Signs: 08/04/24 06:29 08/04/24 06:32 Temperature 97.8 F 98.7 F Temperature Source Oral Oral Pulse Rate 85 85 Respiratory Rate 17 16 Blood Pressure 172/77 H 172/77 H Blood Pressure Mean 108 108 Pulse Ox 98 97 Oxygen Delivery Method Room Air Room Air Positive well nourished and well developed Constitutional Narrative: Nontoxic, slightly uncomfortable. General Appearance ED: well developed HEENT Reports moist mucous membranes normocephalic and atraumatic Eyes EOMs intact bilaterally and conjunctivae normal General Eye ED: Yes normal appearance of both eyes Neck no lymphadenopathy and supple General: Negative for tenderness Chest Wall Chest: Negative for tenderness Resp normal respiratory effort and normal air movement Effort and Inspection: symmetric chest movement; Negative for respiratory distress Cardio regular rate, regular rhythm and no murmurs Peripheral Pulses: pulses 2+ throughout GI normal to inspection, nondistended, normoactive bowel sounds and non-tender Palpation: Negative for guarding or rebound tenderness present Back/Spine no CVA tenderness and no thoracic nor lumbar tenderness Back/Spine Narrative: No rash Extremity normal to inspection General Extremety ED: Negative for edema or tenderness General Extremity: Negative for edema Neuro oriented x3 and no sensory deficits noted Sensorium / Orientation: awake and alert Skin no rashes or lesions noted and no wounds MDM MDM MDM Narrative Medical decision making narrative: Interventions / MDM: Differential diagnosis: Renal colic, flank pain, kidney stone Diagnosis considered but do not suspect: N/A My EKG interpretation: N/A Imaging independently reviewed and interpreted by myself: CT abdomen pelvis without contrast: Pending External documents reviewed: N/A Test considered but not ordered:N/A ED course: Patient uncomfortable similar symptoms from kidney stones in the past. She drove her self. Declines any strong pain medicine as she has no ride home. She tolerated Toradol which was ordered. Labs are drawn urine CT abdomen pelvis for further evaluation. 0730: Status post Toradol no more comfortable at this time. 0745: Labs normal urine negative. Awaiting CT scan. Patient signed out to oncoming physician. Re-evaluation: stable Disposition discussed with patient/family/significant other: Patient Case discussed with consulting clinician: N/A This note was generated with [employer] dictation software. It may contain incorrect words, spelling, and punctuation that were not noted in checking the note before signing. Lab Data Attestation: I reviewed the patient's lab results. Labs: Laboratory Results - last 24 hr 08/04/24 08/04/24 08/04/24 06:38 07:05 07:19 WBC 8.4 RBC 4.49 Hgb 13.0 Hct 39.3 MCV 87.5 MCH 29.0 MCHC 33.1 RDW Std Deviation 43.0 RDW Coeff of Bruno 13.5 Plt Count 362 MPV 8.9 Immature Gran % (Auto) 0.400 Neut % (Auto) 41.7 L Lymph % (Auto) 48.0 H [place] % (Auto) 7.4 Eos % (Auto) 1.9 Baso % (Auto) 0.6 Absolute Neuts (auto) 3.5 Absolute Lymphs (auto) 4.03 Nucleated RBC % 0 Sodium 139 Potassium 4.4 Chloride 106 Carbon Dioxide 28.0 Anion Gap 5 BUN 10 Creatinine 0.62 Estim Creat Clear Calc 158.95 Est GFR (MDRD) Af Amer 132 Est GFR (MDRD) Non-Af 109 BUN/Creatinine Ratio 16.1 Glucose 104 Calcium 9.1 Serum , Qual NEGATIVE Urine Color Yellow Urine Clarity Sl. Cloudy Urine pH 7.0 Ur Specific [place] 1.005 Urine Protein Negative Urine Glucose (UA) Normal Urine Ketones Negative Urine Occult Blood Negative Urine Nitrite Negative Urine Bilirubin Negative Urine Urobilinogen Normal Ur Leukocyte Esterase Negative Discharge Plan Triage Chief Complaint: Flank Pain ED Provider: Wai Donnelly Dx/Rx/DC Orders Clinical Impression: Left flank pain, Urine frequency Prescriptions: No Action albuterol sulfate 1 INHALER inhaler 2 puff inhalation Q4H PRN PRN (Reason: Wheezing) Qty: 1 0RF lisinopril 10 mg tablet 10 mg PO DAILY Primary Care Provider: Fransisco Angel Referrals: Fransisco Angel MD [Primary Care Provider] - Print Language: [place]
[2024-08-04 07:32] LABS: Internal QC Validated? YES +Cl - CLEAR BKGD; Pregnancy, Serum, hCG Quali. NEGATIVE Negative
[2024-08-04 07:33] LABS: Color, Urine Yellow (Yellow); Glucose, Dipstick Normal (Normal); Ketone-Dipstick Negative (Negative); Leukocyte Esterase-Dipstick Negative /ul (Negative); Nitrite-Dipstick Negative (Negative); Occult Blood-Urine Negative /ul (Negative); Protein-Dipstick Negative (Negative); Specific Gravity, Urine 1.005 (1.002-1.030); Urine Bilirubin Dipstick Negative (Negative); Urine Clarity Sl. Cloudy (Clear); Urine Urobilinogen Normal (Normal)
[2024-08-04 07:40] LABS: Anion Gap 5 (5-15); BUN 10 mg/dL (7-18); BUN/Creat Ratio 16.1 RATIO (10-20); Calcium,Total 9.1 mg/dL (8.5-10.1); Chloride 106 mmol/L (98-107); Creatinine, Serum 0.62 mg/dL (0.55-1.02); EST Glomerular Filtration Rate 109 mL/min (>60); Est Glom Filt Rate - Afr Amer 132 mL/min (>60); Estimated Creatinine Clearance 158.95 ml/min; Glucose 104 mg/dL (74-106); Potassium 4.4 mmol/L (3.5-5.1); Sodium Level 139 mmol/L (136-145)
[2024-08-04 08:00] VITALS: BP 134/85; PULSE 77; RESP 19; TEMP 36.8; O2SAT 97
[2024-08-04 08:35] VITALS: BP 138/77; PULSE 71; RESP 19; TEMP 36.8; O2SAT 97
== END 2024-08-04 08:39 | disposition home or self-care (01) ==
PROVIDERS: Emergency Provider Emergency Medicine; PCP Internal Medicine; Visit Provider Emergency Medicine
DX: R10.9 Unspecified abdominal pain (principal); R35.0 Frequency of micturition; I10 Essential (primary) hypertension; R11.2 Nausea with vomiting, unspecified; Z88.5 Allergy status to narcotic agent; Z90.49 Acquired absence of other specified parts of digestive tract; Z87.442 Personal history of urinary calculi; Z79.899 Other long term (current) drug therapy
CPT/HCPCS: 74176; 80048; 81001; 84703; 85025; 96374; 99283; A4216

== ENCOUNTER 2024-10-01 08:56 | Emergency (ER) | payer OTHER, SELFPAY ==
[2024-10-01 08:57] VITALS: BP 180/135; PULSE 81; RESP 16; TEMP 36.4; O2SAT 100; BMI 45.9
--- NOTE | 2024-10-01 09:10 | EX.ED.UPPERE ---
HPI History of Present Illness HPI Narrative: Patient presents with left wrist injury that occurred last night. Patient states she was taking her dogs out and the dog pulled her down some steps. Patient landed on her left wrist. Patient denies any paresthesias or weakness. Patient denies any head injury or loss of consciousness. Patient states her pain is over her left wrist. Patient states it is aching but stabbing with certain movements. Patient states it gets better with rest. Patient denies any other injuries. Chief Complaint: Upper Extremity Injury Informant: patient Occured/Mechanism Mechanism/Context: Yes fall Onset/Context/Timing Onset: Yesterday Context: Sudden Onset Timing: Continuous Quality of Pain: Aching and Stabbing (With movement) Location: Left wrist Worsened by: Movement Relieved by: Rest Associated Symptoms Associated Symptoms: Negative for Parasthesia, Weakness or Loss of Funtion [facility] Medical History (Updated 10/01/24 @ 09:[address] Guillermo Hinton DO) Hypertension Home Medications ?Medication ?Instructions ?Recorded ?Last Taken ?Type albuterol sulfate 90 mcg/actuation 2 puff inhalation Q4H PRN PRN 09/20/19 Unknown Rx aerosol inhaler Wheezing ##1 lisinopril 10 mg tablet 10 mg PO DAILY 12/25/23 Unknown History Allergy/AdvReac Type Severity Reaction Status Date / Time naproxen (From Naprosyn) AdvReac Vomiting Verified 08/04/24 06:30 Surgical History Hx of foot surgery Hx of tonsillectomy Hx of cholecystectomy Social History Smoking Status: Never smoker ROS ROS ED Constitutional Constitutional ED: Denies chills or fever(s) Eyes Eyes: Denies blurry vision or change in vision ENT ENT ED: Denies rhinorrhea or sore throat Cardiovascular Cardiovascular: Denies chest pain or palpitations Respiratory/Chest Respiratory/Chest: Denies cough or dyspnea Gastrointestinal Gastrointestinal: Denies nausea or vomiting Genitourinary Genitourinary ED: Denies dysuria or hematuria Musculoskeletal Musculoskeletal: Denies back pain or neck pain Integumentary Denies abscess or rash Neurologic Neurologic: Denies headache(s) or weakness Allergic/Immunologic Allergic/Immunologic ED: Denies mouth swelling or urticaria EXAM Physical Exam Const Vital Signs: 10/01/24 08:57 Temperature 97.6 F L Temperature Source Oral Pulse Rate 81 Respiratory Rate 16 Blood Pressure 180/135 H Blood Pressure Mean 150 Pulse Ox 100 Oxygen Delivery Method Room Air Positive well nourished and well developed General Appearance ED: well developed and NAD HEENT Reports moist mucous membranes Neck full ROM and supple Extremity Extremity Narrative: There is diffuse tenderness over the left wrist. There is no deformity. There is some mild edema. Range of motion was limited in all motions of the left wrist secondary to pain. Radial pulses are equal bilateral. Sensation was intact to light touch in the radial, median, and ulnar areas. Drinks is 5/5 in the radial, median, and ulnar areas. Neuro oriented x3, CN's II-XII intact bilaterally, moves all extremities, no focal motor deficits and no sensory deficits noted Sensorium / Orientation: alert Motor Exam: strength 5/5 throughout Psych mental status grossly normal MDM MDM MDM Narrative Medical decision making narrative: Differential diagnosis includes fracture, sprain, and contusion. X-rays of the left wrist will be obtained to assess for fracture. Radiography Diagnostic Testing: X-rays of the left wrist were obtained. There are 3 views. On my independent interpretation, there is no acute fracture. There is no dislocation noted. Radiologist also interpreted the x-ray and noted the angulation of the distal fifth metacarpal. Treatment and Re-Evaluation Narrative: Patient was given a dose of ibuprofen here. Patient was advised of her findings. Patient is not tender over her fifth metacarpal. Patient states she has a prior fracture of her fifth metacarpal. Patient was advised that the angular deformity of her fifth metacarpal was likely from her prior fracture. Patient was given a Velcro wrist splint. Patient was instructed to ice and elevate the left wrist. Patient was instructed to take ibuprofen or Tylenol as needed for pain. Patient was instructed to follow-up with her primary care physician in 5 to 7 days. Patient understood and was agreeable with the plan. All questions were answered. Discharge Plan Triage Chief Complaint: Upper Extremity Injury ED Provider: Guillermo Hinton Dx/Rx/DC Orders Clinical Impression: Left wrist sprain, Fall Instructions: ED Wrist Sprain Prescriptions: No Action albuterol sulfate 1 INHALER inhaler 2 puff inhalation Q4H PRN PRN (Reason: Wheezing) Qty: 1 0RF lisinopril 10 mg tablet 10 mg PO DAILY Primary Care Provider: Fransisco Angel Referrals: Fransisco Angel MD [Primary Care Provider] - 5-7 Days Print Language: Georgian Disposition Disposition: Home, Self Care
[2024-10-01] MEDS: Ibuprofen 400 MG Tablet 800 MG PO (09:11)
--- NOTE | 2024-10-01 09:13 | RAD_ITS ---
STUDY: X-RAY - LEFT WRIST REASON FOR EXAM: Female, 48 years old. Injury / Pain. TECHNIQUE: 3 views of the left wrist were obtained. COMPARISON: None. FINDINGS: Normal visualized distal radius and ulna. Normal radiocarpal articulation. Normal distal radioulnar articulation. Normal carpal bones. Normal carpal articulations. Normal carpometacarpal articulation of the thumb. Normal second through fifth carpometacarpal articulations. There is an anterior angulation deformity of the distal shaft of the fifth metacarpal. Normal first through fourth visualized metacarpal bones. The soft tissue structures are unremarkable. RAD/Wrist min 3 Views IMPRESSION: Anterior angulation deformity of the distal shaft of the fifth metacarpal. Electronically Signed: Fernando Beyer MD at 9:32 EST ,
[2024-10-01 10:20] VITALS: BP 146/77; PULSE 79; RESP 16; TEMP 36.6; O2SAT 99
== END 2024-10-01 10:21 | disposition home or self-care (01) ==
PROVIDERS: Emergency Provider Emergency Medicine; PCP Internal Medicine; Visit Provider Emergency Medicine
DX: S63.92XA Sprain of unspecified part of left wrist and hand, initial encounter (principal); W10.9XXA Fall (on) (from) unspecified stairs and steps, initial encounter; I10 Essential (primary) hypertension; Z79.899 Other long term (current) drug therapy
CPT/HCPCS: 73110; 99283; A4216

== ENCOUNTER 2025-01-25 12:23 | Emergency (ER) | payer OTHER, SELFPAY ==
[2025-01-25 12:24] VITALS: BP 188/94; PULSE 93; RESP 18; TEMP 36.6; O2SAT 97; BMI 47.7
--- NOTE | 2025-01-25 12:30 | RAD_ITS ---
PROCEDURE: ANKLE MIN 3 VIEWS 01/25/2025 REASON FOR EXAM: PAIN TECHNIQUE: 3 views of the left ankle COMPARISON: None FINDINGS: There is screw fixation of the 5th metatarsal with chronic features. No acute fracture or dislocation is identified. The ankle mortise is not widened. A benign-appearing calcaneal spur is noted. RAD/Ankle min 3 Views IMPRESSION: There is screw fixation of the 5th metatarsal with chronic features. Reading Location: [facility]
--- NOTE | 2025-01-25 13:21 | EDS_ITS ---
HPI History of Present Illness Chief Complaint: Lower Extremity Injury Informant: patient Narrative Narrative: Left ankle injury this past Saturday. Been limping on it. Tylenol and Motrin taken with no relief. History of foot fracture with surgical repair in the past. No history of gastric ulcers or kidney injury. No other injuries. [facility] Medical History Hypertension Home Medications ?Medication ?Instructions ?Recorded ?Last Taken ?Type albuterol sulfate 90 mcg/actuation 2 puff inhalation Q 4H PRN PRN 09/20/19 Unknown Rx aerosol inhaler Wheezing ##1 lisinopril 10 mg tablet 10 mg PO DAILY 12/25/23 Unkn own History tramadol 50 mg tablet 50 mg PO Q6H PRN pain #12 ta bs 01/25/25 Unknown Rx Allergy/AdvReac Type Severity Reaction Status Date / Time naproxen (From Naprosyn) AdvReac Vomiting Verified 01/25/25 12:25 Surgical History Hx of foot surgery Hx of tonsillectomy Hx of cholecystectomy Social History Smoking Status: Never smoker ROS ROS ED Constitutional Constitutional ED: Denies fever(s) ENT ENT ED: Denies sore throat Respiratory/Chest Respiratory/Chest: Denies cough Gastrointestinal Gastrointestinal: Denies diarrhea, nausea or vomiting Musculoskeletal Musculoskeletal: Reports extremity pain; Denies back pain or neck pain Integumentary Denies rash or wounds EXAM Physical Exam Const Vital Signs: 01/25/25 12:24 01/25/25 13:24 Temperature 97.8 F Temperature Source Oral Pulse Rate 93 87 Respiratory Rate 18 16 Blood Pressure 188/94 H 130/94 H Blood Pressure Mean 125 106 Pulse Ox 97 99 Oxygen Delivery Method Room Air Positive well nourished and well developed General Appearance ED: well developed and NAD HEENT Reports moist mucous membranes normocephalic and atraumatic Eyes General Eye ED: Yes normal appearance of both eyes Neck full ROM Chest Wall Chest: Negative for tenderness Resp normal respiratory effort and normal air movement Effort and Inspection: symmetric chest movement; Negative for respiratory distress Cardio regular rate, regular rhythm and no murmurs Peripheral Pulses: pulses 2+ throughout GI normal to inspection, nondistended, normoactive bowel sounds and non-tender Palpation: Negative for guarding or rebound tenderness present Extremity Extremity Narrative: Left lower extremity: No knee tenderness. There is tender palpation ankle deltoid ligament and mild tenderness lateral malleolus. No deformities. No midfoot or proximal fifth base tenderness. Skin intact. Neuro vas intact distally. General Extremety ED: Yes tenderness; Negative for edema General Extremity: Negative for edema Neuro oriented x3 and no sensory deficits noted Sensorium / Orientation: awake and alert Skin no rashes or lesions noted and no wounds MDM MDM MDM Narrative Medical decision making narrative: Interventions / MDM: Differential diagnosis: Sprain Diagnosis considered but do not suspect: Fracture x-ray negative My EKG interpretation: N/A Imaging independently reviewed and interpreted by myself: 3 view left ankle: Arthritic changes of the left ankle mortise intact, no fracture or dislocation, fifth metatarsal screw noted to be intact. External documents reviewed: N/A Test considered but not ordered:N/A ED course: X-ray obtained through triage interpreted myself arthritic change no fractures noted. She provided Aircast and crutches. She will continue Motrin discussed excellent mg every 6 hours. Short prescription for tramadol to use as needed. She is given follow-up with podiatry. All questions were answered. Re-evaluation: stable Disposition discussed with patient/family/significant other: Patient Case discussed with consulting clinician: N/A This note was generated with [employer] dictation software. It may contain incorrect words, spelling, and punctuation that were not noted in checking the note before signing. 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 Reading Location: [facility] Discharge Plan Triage Chief Complaint: Lower Extremity Injury ED Provider: Wai Donnelly Dx/Rx/DC Orders Clinical Impression: Left ankle sprain, Injury of ankle, left Instructions: ED Ankle Sprain (Adult) Prescriptions: New tramadol 50 mg tablet 50 mg PO Q6H PRN (Reason: pain) Qty: 12 0RF No Action albuterol sulfate 1 INHALER inhaler 2 puff inhalation Q4H PRN PRN (Reason: Wheezing) Qty: 1 0RF lisinopril 10 mg tablet 10 mg PO DAILY Stand Alone Forms: ED Work / School Excuse Primary Care Provider: Fransisco Angel Referrals: Wade Pinto DPM [Med Staff - Active Staff] - 1-2 Weeks Fransisco Angel MD [Primary Care Provider] - Activity Restrictions/Additional Instructions: X-ray negative for fracture or dislocation. Your hardware on your foot intact. Aircast crutches for support weight-bear as tolerated. Follow-up with Dr. Pinto. Print Language: Urdu Disposition Disposition: Home, Self Care Discharge Date/Time: 01/25/25 14:11
[2025-01-25 13:24] VITALS: BP 130/94; PULSE 87; RESP 16; O2SAT 99
== END 2025-01-25 14:11 | disposition home or self-care (01) ==
PROVIDERS: Emergency Provider Emergency Medicine; PCP Internal Medicine; Visit Provider Emergency Medicine
DX: S93.402A Sprain of unspecified ligament of left ankle, initial encounter (principal); X58.XXXA Exposure to other specified factors, initial encounter; I10 Essential (primary) hypertension; Z79.899 Other long term (current) drug therapy; Z90.49 Acquired absence of other specified parts of digestive tract
CPT/HCPCS: 73610; 99284

== ENCOUNTER 2025-05-10 21:16 | Emergency (ER) | payer OTHER, SELFPAY ==
[2025-05-10 21:16] VITALS: BP 172/99; PULSE 90; RESP 18; TEMP 37; O2SAT 98; BMI 45.8
--- NOTE | 2025-05-10 21:20 | RAD_ITS ---
EXAM: XR Left Foot Complete, 3 or More Views CLINICAL INDICATION: INJURY TECHNIQUE: Frontal, lateral and oblique views of the left foot. COMPARISON: No relevant prior studies available. FINDINGS: BONES/JOINTS: Status post fixation screw through the 5th metatarsal. Intact hardware. Anatomic position. SOFT TISSUES: Soft tissue swelling without acute fracture. RAD/Foot min 3 Views IMPRESSION: 1. Soft tissue swelling without acute fracture. 2. If symptoms persist, further evaluation with CT is recommended. Reading Location: [id number]
--- NOTE | 2025-05-10 21:20 | RAD_ITS ---
EXAM: XR Left Foot Complete, 3 or More Views CLINICAL INDICATION: INJURY TECHNIQUE: Frontal, lateral and oblique views of the left foot. COMPARISON: No relevant prior studies available. FINDINGS: BONES/JOINTS: Status post fixation screw through the 5th metatarsal. Intact hardware. Anatomic position. SOFT TISSUES: Soft tissue swelling without acute fracture. RAD/Foot min 3 Views IMPRESSION: 1. Soft tissue swelling without acute fracture. 2. If symptoms persist, further evaluation with CT is recommended. Reading Location: [id number]
--- OUTSIDE RECORDS SUMMARY | 2025-05-10 22:02 | XMS RPT_ITS | CCD ---
Author Organization [facility] Care Team Providers Care Graduate Teacher Education Name Role Phone (History), None Primary Care Provider UnavailFransisco Sierra MD Primary Care Provider [phone] Fransisco Angel MD Primary Care Provider [phone] Fransisco Angel MD Primary Care Provider LYNDON VELASQUEZ Attending Unavailable ANGLE NIETO Referring Unavailable FRANSISCO ANGEL Primary Care Unavailable LYNDON VELASQUEZ Attending Unavailable FRANSISCO ANGEL Primary Care Unavailable Fransisco Angel MD Primary Care Provider (History), None Primary Care Provider Unavailmali Coronado SENIOR UI UX DEVELOPER.Barbara BYERS Unavailable Dr. Fransisco Angel MD Primary Care Provider Dr. Guillermo Hinton DO Attending Provider Dr. Guillermo Hinton DO Emergency Provider Dr. Wai Donnelly DO Emergency Provider [phone] Fransisco Angel Primary Care Unavailable Wai Donnelly Attending Unavailable Guillermo Hinton Attending Unavailable Fransisco Angel Primary Care Unavailable Fransisco Angel Primary Care Unavailable Wai Donnelly Attending Unavailable PHYSICIAN, NOT RECORDED Primary Care Physician U JAIME Hernandez DO Attending Unavailable PHYSICIAN, NOT RECORDED Primary Care Unavaila ble BARBARA CORONADO Attending Unavailable FRANSISCO ANGEL Primary Care Unavailable ANTHONYJUANA MENDOZA Attending Unavailable JUANA CRUZ Referring Unavailable FRANSISCO ANGEL Primary Care Unavailable BARBARA CORONADO Referring Unavailable ANGELFRANSISCO Primary Care Unavailable JUANA CRUZ Referring Unavailable ANGEL, FRANSISCO Perez Primary Care Unavailable ANGEL, FRANSISCO Perez Primary Care Unavailable BARBARA CORONADO Attending Unavailable ANGEL, FRANSISCO Perez Primary Care Unavailable ANGEL, FRANSISCO Perez Primary Care Unavailable ZOE RAYA Referring Unavailable ANGEL, FRANSISCO Perez Primary Care Unavailable BARBARA CORONADO Attending Unavailable ANGEL, FRANSISCO Perez Primary Care Unavailable Allergies Allergy Classification Reported Allergen(s) Allergy Type Date of Onset Reaction(s) Facility (20 sources) Grass pollen; Translations: [GRASS POLLEN] Propensity to adverse reactions 5 [facility] (20 sources) Naproxen; Translations: [NAPROXEN] Drug Allergy 5 [facility] (20 sources) IVORY [Other] Propensity to adverse reactions 5 [facility] (1 source) OTHER; Translations: [OTHER] Propensity to adverse reactions (disorder) 5 [facility] Other [facility] (1 source) Naproxen Drug Allergy 5 [facility] Repository Medications Current Medications Medication Drug Class(es) Dates Sig (Normalized) Sig (Original) Acetaminophen (20 sources) ACETAMINOPHEN (T YLENOL ORAL) Take by mouth as needed. Active ACETAMINOPHEN (T YLENOL ORAL) Take by mouth as needed. 0 Active Comment on above: Take by mouth as nee ded. acetaminophen 325 mg / HYDROcodone bitartrate 5 mg oral tablet (8 sources) Opioid Agonist Start: 02-01-2023 End: 02-08-2023 take 1 tablet by mouth every six hours as needed for pain HYDROcodone-acetami nophen (NORCO) 5-325 mg per tablet Indications: Positive Priscilla test of right knee, initial encounter , Acute pain of right knee Take 1 tablet by mouth every 6 hours as needed for pain for up to 7 days. 28 tablet 0 02/01/2023 02/08/2023 Active Start: 04-02-2022 End: 12-25-2023 take 1 tablet by mouth every six hours as needed for pain HYDROcodone-acetaminophen (NORCO) 5-325 mg per tablet Indications: Acute left-sided low back pain without sciatica , History of kidney stones Take 1 tablet by mouth every 6 hours as needed for pain for up to 7 days. 28 tablet 0 10/03/2022 10/10/2022 Active Start: 04-02-2022 End: 12-25-2023 take 1 tablet by mouth every six hours as needed Hydrocodone-Acetaminophen Discontinued 1 TABLET PO EVERY 6 HOURS NEEDED 10 3 April 02, 2022 December 25, 2023 12:27pm Comment on above: Take 1 tablet by thuy th every 6 hours as needed for pain for up to 7 days. [id number] 200 actuat albuterol 0.09 mg/actuat metered dose inhaler (20 sources) beta2-Adrenergic Agonist Start: 09-20-2019 Albuterol Sulfate 1 INHALER inhaler Active 2 NMA INHALATION EVERY 4 HOURS NEEDED as needed for Wheezing September 20, 2019 1:00am Start: 09-20-2019 take 1 puff(s) by in halation every four hours as needed Albuterol Sulfate Active 2 PUFF INHALATION EVERY 4 HOURS NEEDED September 20, 2019 1:00am Start: 12-09-2018 End: 02-23-2025 take 2 puff(s) by inhalation every six hours as needed for wheezing albuterol HFA (PROAIR HFA) 90 mcg/actuation inhaler Inhale 2 puffs as instructed every 6 hours as needed for wheezing/shortness of breath. 1 each 2 02/23/2025 Active Start: 12-19-2016 End: 02-19-2022 take 2 puff(s) by inhalation every four hours as needed albuterol HFA (PROAIR HFA) 90 mcg/actuation inhaler Indications: Acute bronchitis, unspecified organism Inhale 2 Puffs as instructed every 4 hours as needed. 1 Inhaler 0 12/19/2016 02/19/2022 Discontinued (Duplicate Entry) Comment on above: Inhale 2 Puffs as in structed every 4 hours as needed. Inhale 2 Puffs as in structed every 6 hours as needed. Inhale 2 Puffs as in structed every 6 hours as needed for wheezing/shortness of breath. doxycycline hyclate 100 mg oral tablet (1 source) Tetracycline-class Drug Start: 4 End: 12-19-202 4 take 1 tablet by mouth twice daily doxycycline (VIBRA-TABS) 100 mg tablet Take 1 tablet by mouth two times a day for 10 days. 20 tablet 09/07/2024 09/17/2024 Active iv contrast (will be provided with radiology test) (5 sources) Start: 3 End: 3 iv contrast (will be provided with radiology test) MRI Liver Inject, intravenously, once for 1 dose. No IV access, insert saline lock prior to the beginning of sedation, infusion, injection of imaging exam. Discontinue saline lock post exam. If Pt. has a central line or IVAD, may access for administration according to line specific nursing protocol. Once exam is complete flush line and de-access according to line specific nursing protocol in the MR contrast administration guidelines link. 1 Each 0 05/15/2023 05/16/2023 Active Start: 10-23-2022 End: 11-14-2022 iv contrast (will be provide d with radiology test) Indications: Renal cyst, left CT Urogram WO/W Inject, intravenously, once for 1 dose.No IV access, insert saline lock prior to the beginning of sedation, infusion, injection of imaging exam. Discontinue saline lock post exam. If Pt. has a central line or IVAD, may access for administration according to line specific nursing protocol. Once exam is complete flush line and de-access according to line specific nursing protocol in the CT contrast administration guidelines link. 1 Each 0 10/23/2022 11/14/2022 Discontinued Start: 10-23-2022 iv contrast (w ill be provided with radiology test) Indications: Renal cyst, left CT Urogram WO/W Inject, intravenously, once for 1 dose.No IV access, insert saline lock prior to the beginning of sedation, infusion, injection of imaging exam. Discontinue saline lock post exam. If Pt. has a central line or IVAD, may access for administration according to line specific nursing protocol. Once exam is complete flush line and de-access according to line specific nursing protocol in the CT contrast administration guidelines link. 1 Each 0 10/23/2022 Active Comment on above: CT Urogram WO/W Inje ct, intravenously, once for 1 dose.No IV access, insert saline lock prior to the beginning of sedation, infusion, injection of imaging exam. Discontinue saline lock post exam. If Pt. has a central line or IVAD, may access for administration according to line specific nursing protocol. Once exam is complete flush line and de-access according to line specific nursing protocol in the CT contrast administration guidelines link. MRI Liver Inject, in travenously, once for 1 dose. No IV access, insert saline lock prior to the beginning of sedation, infusion, injection of imaging exam. Discontinue saline lock post exam. If Pt. has a central line or IVAD, may access for administration according to line specific nursing protocol. Once exam is complete flush line and de-access according to line specific nursing protocol in the MR contrast administration guidelines link. lisinopril 10 mg oral tablet (18 sources) Angiotensin Converting Enzyme Inhibitor Start: 2022 End: 2023 take 1 tablet by mouth once daily lisinopril (ZESTRIL) 10 mg tablet Take 1 tablet by mouth once daily. 90 tablet 3 08/24/2024 Active Comment on above: Take 1 tablet by thuy th once daily. loratadine 10 mg oral tablet (20 sources) Start: 2020 take 1 tablet by mouth once daily loratadine (CLARITIN) 10 mg tablet Take 1 tablet by mouth once daily. 14 tablet 07/31/2021 Active Comment on above: Take 1 tablet by thuy th once daily. methylPREDNISolone (1 source) Corticosteroid Start: 2021 End: 2021 methylPREDNISolone (MEDROL, DARWIN,) 4 mg Dose-Pack Indications: Acute intractable headache, unspecified headache type Follow dosing instructions, take with food. 21 tablet 0 05/22/2022 05/28/2022 Active Comment on above: Follow dosing instru ctions, take with food. multivitamin tablet (20 sources) Start: 2022 take 1 tablet by mouth once daily multivitamin tablet Take 1 tablet by mouth once daily. 12/14/2022 Active Start: 12-14-2022 take 1 tablet by thuy th once daily multivitamin tablet Take 1 tablet by mouth once daily. 0 12/14/2022 Active Comment on above: Take 1 tablet by thuy th once daily. ondansetron 4 mg disintegrating oral tablet (4 sources) Serotonin-3 Receptor Antagonist Start: 2024 take 1 tablet by mouth every eight hours as needed ondansetron orally disintegrating (ZOFRAN ODT) 4 mg disintegrating tablet Take 1 tablet by mouth every 8 hours as needed for nausea/vomiting. 6 tablet 01/01/2025 Active 1000 ml sodium chloride 9 mg/ml injection (1 source) Start: 2022 End: 2022 inject 1 dose intravenously once 0.9 % sodium chloride (NACL 0.9%) infusion Indications: Renal cyst, left Inject 5-30 mL/hr intravenously one time only for 1 dose. Administer at rate defined per CT contrast administration specifications. To be provided with radiology test. 1 Each 0 10/23/2022 10/23/2022 Active Comment on above: Inject 5-30 mL/hr in travenously one time only for 1 dose. Administer at rate defined per CT contrast administration specifications. To be provided with radiology test. SUMAtriptan 50 mg oral tablet (20 sources) Serotonin-1b and Serotonin-1d Receptor Agonist Start: 2021 End: 2024 SUMAtriptan (IMITREX) 50 mg tablet Take one tablet as needed for migraine/headache. Can repeat in 2 hours if ineffective. No more than 2 tablets in 24 hours. 6 tablet 5 01/01/2025 Active Comment on above: Take one tablet as n eeded for migraine/headache. Can repeat in 2 hours if ineffective. No more than 2 tablets in 24 hours. traMADol hydrochloride 50 mg oral tablet (5 sources) Opioid Agonist Start: 2024 take 1 tablet by mouth every six hours as needed for pain Tramadol 50 mg tablet Active 50 mg PO EVERY 6 HOURS as needed for pain January 25, 2025 12:00am Start: 01-25-2023 End: 02-01-2023 take 1 tablet by mouth twice daily as needed for pain traMADol (ULTRAM) 50 mg tablet Indications: Acute pain of right knee Take 1 tablet by mouth twice daily as needed for pain for up to 7 days. 14 tablet 01/25/2023 02/01/2023 Comment on above: Take 1 tablet by thuy th twice daily as needed for pain for up to 7 days. Completed/Discontinued Medications Medication Drug Class(es) Dates Sig (Normalized) Sig (Original) 24 hr alfuzosin hydrochloride 10 mg extended release oral tablet (6 sources) alpha-Adrenergic Margie Start: 10-03-2022 End: 11-14-2022 take 1 tablet by mouth once daily alfuzosin SR (UROXATRAL) 10 mg 24 hr tablet Indications: Acute left-sided low back pain without sciatica , History of kidney stones Take 1 tablet by mouth once daily for 14 days. 14 tablet 0 10/03/2022 11/14/2022 Discontinued (Course of therapy completed) Comment on above: Take 1 tablet by thuy once daily for 14 days. benzonatate 200 mg oral capsule (7 sources) Non-narcotic Antitussive Start: 08-24-2024 End: 01-01-2025 take 1 capsule by mouth every eight hours as needed Benzonatate 200 mg capsule Take 1 capsule by mouth three times a day as needed. 21 capsule 08/24/2024 01/01/2025 Discontinued (Course of therapy completed) Start: 06-12-2023 End: 11-20-2023 take 2 capsules by mouth three times daily as needed benzonatate (TESSALON PERLES) 100 mg capsule Indications: Suspected COVID-19 virus infection Take 2 capsules by mouth three times daily as needed. 30 capsule 0 06/12/2023 11/20/2023 Discontinued (Course of therapy completed) Comment on above: Take 2 capsules by out three times daily as needed. codeine phosphate 2 mg/ml / guaiFENesin 20 mg/ml oral solution (2 sources) Opioid Agonist Start: 02-20-20 End: 02-25-20 take 10 mL by mouth three times daily as needed for cough codeine-guaiFENesin (GUAIFENESIN AC) 10-100 mg/5 mL syrup Indications: Bronchospasm Take 10 mL by mouth three times daily as needed for cough for up to 5 days. 118 mL 02/19/2022 02/24/2022 Comment on above: Take 10 mL by mouth three times daily as needed for cough for up to 5 days. fluticasone propionate 0.05 mg/actuat metered dose nasal spray (4 sources) Corticosteroid Start: 07-31-20 End: 03-23-20 take 2 spray(s) by mouth once daily fluticasone (FLONASE) 50 mcg/actuation nasal spray Use 2 Sprays in each nostril once daily. Rinse mouth after use. 1 Each 07/31/2021 03/23/2022 Discontinued Comment on above: Use 2 Sprays in each nostril once daily. Rinse mouth after use. Ibuprofen (20 sources) Nonsteroidal Anti-inflammatory Drug End: 11-20-19 IBUPROFEN ORAL Indications: Acute bronchitis, unspecified organism Take by mouth. 11/20/2023 Discontinued (Course of therapy completed) End: 11-20-2023 IBUPROFEN ORAL Indications: Acute bronchitis, unspecified organism Take by mouth. 0 11/20/2023 Discontinued (Course of therapy completed) IBUPROFEN ORAL I ndications: Acute bronchitis, unspecified organism Take by mouth. 0 Active Comment on above: Take by mouth. 2 ml ketorolac tromethamine 30 mg/ml injection (3 sources) Nonsteroidal Anti-inflammatory Drug, Cyclooxygenase Inhibitor Start: 01-01-2025 End: 01-01-2025 keTORolac 60 mg injection (Toradol) Start: 01-01-2025 End: 01-01-2025 60 mg, INTRAMUSCULAR, ONCE, 1 dose, On Sat01/01/25 at 0830, Ketorolac (Toradol) is indicated for the short-term (up to 5 days) management of moderately severe acute pain. Continuation of ketorolac (Toradol) beyond 5 days increases the risk of developing serious adverse events. Please verify the duration of therapy for ketorolac (Toradol). Start: 05-22-2022 End: 05-22-2022 keTORolac 60 mg injection (T ORADOL) LORazepam 0.5 mg oral tablet (4 sources) Benzodiazepine Start: 05-15-2023 End: 06-14-2023 take 1 tablet by mouth three times daily as needed for anxiety LORazepam (ATIVAN) 0.5 mg Indications: Adjustment disorder with anxiety Take 1 tablet by mouth three times daily as needed (anxiety) for up to 30 days. Sparing use 15 tablet 05/15/2023 06/14/2023 Start: 12-08-2022 End: 12-08-2022 LORazepam (ATIVAN) 1 mg tabl et Indications: Claustrophobia Take 1 tablet by mouth one time only for 1 dose. 30 minutes prior test. 1 tablet 0 12/08/2022 12/08/2022 Active Comment on above: Take 1 tablet by [facility] one time only for 1 dose. 30 minutes prior test. Take 1 tablet by thuy three times daily as needed (anxiety) for up to 30 days. Sparing use predniSONE 10 mg oral tablet (14 sources) Start: 09-07-2024 End: 01-01-2025 predniSONE (DELTASONE) 10 mg tablet Take 4 tabs daily for 3 days, then 2 tabs daily for 3 days, then 1 tab daily for 3 days with food. 21 tablet 09/07/2024 01/01/2025 Discontinued (Course of therapy completed) Start: 06-12-2023 End: 06-17-2023 take 2 tablets by mouth once daily predniSONE (DELTASONE) 20 mg tablet Indications: Suspected COVID-19 virus infection Take 2 tablets by mouth once daily for 5 days. 10 tablet 0 06/12/2023 06/17/2023 Active Start: 01-25-2023 End: 05-15-2023 predniSONE (DELTASONE) 10 mg tablet Indications: Acute pain of right knee Take 2 tabs po BID for 2 days then 1 tab po BID for 2 days then 1/2 tab po BID for 2 days then 1/2 tab daily for 2 days then stop 15 tablet 01/25/2023 05/15/2023 Discontinued (Course of therapy completed) Start: 02-19-2022 End: 03-23-2022 take 4 tablets by mouth once daily, then take 3 tablets by mouth once daily, then take 2 tablets by mouth once daily, then take 1 tablet by mouth once daily predniSONE (DELTASONE) 10 mg tablet Indications: Bronchospasm TAKE BY MOUTH 4 TABLETS DAILY FOR 2 DAYS, THEN 3 TABLETS DAILY FOR 2 DAYS, THEN 2 TABLETS DAILY FOR 2 DAYS, THEN 1 TABLET DAILY FOR 2 DAYS. 20 tablet 02/19/2022 03/23/2022 Discontinued Comment on above: TAKE BY MOUTH 4 TABL ETS DAILY FOR 2 DAYS, THEN 3 TABLETS DAILY FOR 2 DAYS, THEN 2 TABLETS DAILY FOR 2 DAYS, THEN 1 TABLET DAILY FOR 2 DAYS. Take 2 tabs po BID f or 2 days then 1 tab po BID for 2 days then 1/2 tab po BID for 2 days then 1/2 tab daily for 2 days then stop Take 2 tablets by mo [facility] once daily for 5 days. topiramate 25 mg oral tablet (20 sources) Start: 09-24-2023 End: 08-24-2024 take 1 tablet by mouth once daily at bedtime topiramate (TOPAMAX) 25 mg tablet Take 1 tablet by mouth daily at bedtime. 90 tablet 3 02/19/2024 08/24/2024 Discontinued (Discontinued by Patient) Start: 06-06-2022 End: 09-21-2023 take 1 tablet by mouth once daily at bedtime topiramate (TOPAMAX) 25 mg tablet Take 1 tablet by mouth daily at bedtime. 90 tablet 1 07/24/2022 03/05/2023 Discontinued Comment on above: Take 1 tablet by thuy th daily at bedtime. Problems Active Problems Problem Classification Problem Date Documented Da te Episodic/Chronic Acute bronchitis (5 sources) Viral bronchitis; Translations: [Acute bronchitis due to other specified organisms] 09-21-2019 Episodic Adjustment disorders (1 source) Adjustment disorder with anxious mood; Translations: [Adjustment disorder with anxiety] 05-15-2023 Chronic Anxiety disorders (20 sources) Panic; Translations: [Panic disorder [episodic paroxysmal anxiety]] Onset: 02-12-2012 Resolved: 02-23-2025 02-12-2012 Chronic Asthma (1 source) IgE-mediated allergic asthma; Translations: [Mild intermittent asthma, uncomplicated] 02-23-2025 Chronic Diabetes mellitus without complication (3 sources) Hyperglycemia; Translations: [Hyperglycemia, unspecified] Onset: 03-09-2025 12-03-2023 Episodic E Codes: Fall (1 source) Fall; Translations: [Unspecified fall, initial encounter] 10-09-2024 Episodic Essential hypertension (20 sources) Elevated blood pressure; Translations: [Essential (primary) hypertension] Onset: 11-20-2023 Chronic Fracture of upper limb (5 sources) Fracture of neck of fifth metacarpal; Translations: [Displaced fracture of neck of fifth metacarpal bone, left hand, initial encounter for closed fracture] 09-19-2015 Episodic Genitourinary symptoms and ill-defined conditions (4 sources) Leukocytes in urine; Translations: [Other abnormal findings in urine] Onset: 10-23-2022 Episodic Headache; including migraine (7 sources) Migraine without aura, not refractory ; Translations: [Migraine without aura, not intractable, without status migrainosus] Onset: 02-23-2025 Chronic Headache; including migraine (1 source) Acute headache; Translations: [Acute intractable headache, unspecified headache type] Episodic Immunizations and screening for infectious disease (6 sources) Suspected disease caused by 2019-nCoV; Translations: [Suspected COVID-19 virus infection] Episodic Joint disorders and dislocations; trauma-related (3 sources) Priscilla test positive; Translations: [Unspecified tear of unspecified meniscus, current injury, right knee, initial encounter] Episodic Mood disorders (1 source) Mood disorders; Translations: [Anxiety and depression] Onset: 12-26-2015 Nausea and vomiting (1 source) Nausea and vomiting; Translations: [Nausea with vomiting, unspecified] 01-01-2025 Episodic Nonspecific chest pain (2 sources) Chest pain; Translations: [Chest pain, unspecified] 12-25-2023 Episodic Other circulatory disease (1 source) Elevated blood-pressure reading without diagnosis of hypertension; Translations: [Elevated blood-pressure reading, without diagnosis of hypertension] 05-15-2023 Episodic Other diseases of kidney and ureters (2 sources) Hydronephrosis; Translations: [Other hydronephrosis] Episodic Other diseases of kidney and ureters (1 source) Cyst of kidney, acquired; Translations: [Renal cyst, left] Onset: 11-13-2022 Episodic Other diseases of kidney and ureters (1 source) Other hydronephrosis; Translations: [Other hydronephrosis] Onset: 10-23-2022 Episodic Other female genital disorders (2 sources) Abnormal uterine bleeding; Translations: [Abnormal uterine and vaginal bleeding, unspecified] 03-05-2025 Chronic Other female genital disorders (1 source) Abnormal uterine and vaginal bleeding, unspecified; Translations: [Abnormal uterine bleeding (AUB)] Onset: 03-05-2025 Chronic Other injuries and conditions due to external causes (1 source) Injury of left ankle; Translations: [Unspecified injury of left ankle, initial encounter] 01-25-2025 Episodic Other liver diseases (3 sources) Lesion of liver; Translations: [Liver disease, unspecified] Chronic Other liver diseases (1 source) Liver disease, unspecified; Translations: [Hepatic lesion] Onset: 11-13-2022 Chronic Other lower respiratory disease (2 sources) Cough; Translations: [Acute cough] 09-07-2024 Episodic Other lower respiratory disease (1 source) Lower respiratory tract infection; Translations: [Unspecified acute lower respiratory infection] 09-07-2024 Episodic Other non-traumatic joint disorders (3 sources) Pain in right knee; Translations: [Pain in joint, lower leg] Episodic Other nutritional; endocrine; and metabolic disorders (20 sources) Body mass index 40+ - severely obese; Translations: [Morbid (severe) obesity due to excess calories] Onset: 03-23-2022 Chronic Other nutritional; endocrine; and metabolic disorders (1 source) Morbid (severe) obesity due to excess calories; Translations: [Obesity, Class III, BMI 40-49.9 (morbid obesity) (HCC)] Onset: 03-23-2022 Chronic Other screening for suspected conditions (not mental disorders or infectious disease) (15 sources) Cancer cervix screening status; Translations: [Encounter for screening for malignant neoplasm of cervix] Onset: 02-23-2025 Episodic Other upper respiratory disease (1 source) Seasonal allergic rhinitis; Translations: [Other seasonal allergic rhinitis] 02-23-2025 Chronic Residual codes; unclassified (1 source) Family history of malignant neoplasm of liver; Translations: [Family history of malignant neoplasm of digestive organs] Episodic Spondylosis; intervertebral disc disorders; other back problems (1 source) Acute low back pain; Translations: [Acute left-sided low back pain without sciatica] Episodic Superficial injury; contusion (5 sources) Contusion of hand; Translations: [Contusion of left hand, initial encounter] 04-11-2015 Episodic Thyroid disorders (20 sources) Thyroid nodule; Translations: [Nontoxic single thyroid nodule] Onset: 02-18-2012 Resolved: 03-23-2022 02-18-2012 Chronic Unclassified (2 sources) Patient encounter status 02-23-2025 Unclassified (1 source) Acute cough; Translations: [Acute cough] Onset: 09-07-2024 Viral infection (1 source) Disease caused by 2019-nCoV; Translations: [COVID-19] Episodic Past or Other Problems Problem Classification Problem Date Documented Da te Episodic/Chronic Abdominal pain (4 sources) Left flank pain; Translations: [Unspecified abdominal pain] Onset: 10-23-2022 Episodic Acquired foot deformities (15 sources) Acquired equinus deformity of foot; Translations: [Other acquired deformities of unspecified foot] Onset: 03-18-2008 Resolved: 06-13-2012 06-13-2012 Episodic Administrative/social admission (17 sources) Marital conflict; Translations: [Problems in relationship with spouse or partner] Onset: 02-12-2012 Resolved: 03-23-2022 02-12-2012 Episodic Calculus of urinary tract (20 sources) History of calculus of kidney; Translations: [Personal history of urinary calculi] Onset: 05-19-2012 Resolved: 03-23-2022 09-25-2021 Episodic Fracture of lower limb (15 sources) Closed fracture of metatarsal bone; Translations: [Fracture of unspecified metatarsal bone(s), unspecified foot, initial encounter for closed fracture] Onset: 09-28-2005 Resolved: 06-13-2012 06-13-2012 Episodic Mood disorders (17 sources) Recurrent major depressive episodes, moderate ; Translations: [Major depressive disorder, recurrent, moderate] Onset: 12-19-2016 Resolved: 03-23-2022 12-19-2016 Chronic Other and unspecified benign neoplasm (20 sources) Hemangioma of liver; Translations: [Hemangioma of intra-abdominal structures] Onset: 12-14-2022 Episodic Other and unspecified benign neoplasm (20 sources) Intraductal papillary mucinous neoplasm of pancreas; Translations: [Benign neoplasm of pancreas] Onset: 12-14-2022 Episodic Other circulatory disease (17 sources) H/O: hypertension; Translations: [Personal history of other diseases of the circulatory system] Onset: 05-19-2012 Resolved: 03-23-2022 09-25-2021 Episodic Other complications of ; puerperium affecting management of mother (15 sources) Advanced maternal age ; Translations: [Advanced maternal age in ] Onset: 05-19-2012 Resolved: 12-15-2021 12-15-2021 Episodic Other complications of (15 sources) High risk ; Translations: [Supervision of high risk , unspecified, unspecified trimester] Onset: 06-13-2012 Resolved: 12-15-2021 12-15-2021 Episodic Other complications of (15 sources) Urinary tract infection in ; Translations: [Unspecified infection of urinary tract in , unspecified trimester] Onset: 09-12-2012 Resolved: 12-15-2021 12-15-2021 Episodic Other congenital anomalies (15 sources) Congenital pes planus; Translations: [Congenital pes planus, unspecified foot] Onset: 12-21-2008 Resolved: 06-13-2012 06-13-2012 Chronic Other connective tissue disease (15 sources) Plantar fascial fibromatosis; Translations: [Plantar fascial fibromatosis] Onset: 05-20-2007 Resolved: 06-13-2012 06-13-2012 Episodic Other connective tissue disease (15 sources) Disorder of Achilles tendon; Translations: [Achilles tendinitis, unspecified leg] Onset: 03-18-2008 Resolved: 06-13-2012 06-13-2012 Episodic Other connective tissue disease (15 sources) Calcaneal spur; Translations: [Calcaneal spur, unspecified foot] Onset: 12-21-2008 Resolved: 06-13-2012 06-13-2012 Episodic Other connective tissue disease (15 sources) Pain in limb; Translations: [Pain in unspecified limb] Onset: 04-05-2009 Resolved: 02-11-2012 02-11-2012 Episodic Other connective tissue disease (15 sources) Rupture of tendon of foot and ankle; Translations: [Spontaneous rupture of other tendons, unspecified ankle and foot] Onset: 04-11-2009 Resolved: 06-13-2012 06-13-2012 Episodic Other connective tissue disease (15 sources) Tibialis tendinitis; Translations: [Posterior tibial tendinitis, unspecified leg] Onset: 11-14-2009 Resolved: 06-13-2012 06-13-2012 Episodic Other connective tissue disease (15 sources) Capsulitis; Translations: [Enthesopathy, unspecified] Onset: 07-13-2010 Resolved: 06-13-2012 06-13-2012 Episodic Other diseases of kidney and ureters (20 sources) Cyst of kidney; Translations: [Cyst of kidney, acquired] Onset: 11-13-2022 Episodic Other injuries and conditions due to external causes (15 sources) Contusion; Translations: [Other injury of unspecified body region, initial encounter] Onset: 12-10-2011 Resolved: 06-13-2012 06-13-2012 Episodic Other non-traumatic joint disorders (1 source) Pain in left wrist; Translations: [Pain in left wrist] Onset: 10-26-2024 Episodic Other nutritional; endocrine; and metabolic disorders (17 sources) Obesity; Translations: [Obesity, unspecified] Onset: 05-19-2012 Resolved: 03-23-2022 09-25-2021 Chronic Other upper respiratory disease (17 sources) Seasonal allergy; Translations: [Other seasonal allergic rhinitis] Onset: 11-22-2009 Resolved: 03-23-2022 11-22-2009 Chronic Other upper respiratory disease (20 sources) Bronchospasm; Translations: [Acute bronchospasm] Onset: 03-23-2022 Episodic Other upper respiratory infections (5 sources) Sore throat symptom; Translations: [Acute pharyngitis, unspecified] Onset: 08-24-2024 Episodic Screening and history of mental health and substance abuse codes (20 sources) H/O: depression; Translations: [Personal history of other mental and behavioral disorders] Onset: 05-19-2012 Resolved: 03-23-2022 09-25-2021 Episodic Sprains and strains (20 sources) Sprain of knee; Translations: [Sprain of unspecified site of right knee, initial encounter] Onset: 12-21-2008 Resolved: 12-15-2021 12-11-2021 Episodic Syncope (15 sources) Syncope and collapse; Translations: [Syncope and collapse] Onset: 11-22-2009 Resolved: 07-03-2016 07-03-2016 Episodic Results Test Name Value Interpretation Reference Range Facility [facility] SCREENING W TOMOon 04-12 [facility] * * *Final Report* * * DATE OF EXAM: Apr 12 2025 2:55PM WILIAM [id number] - [facility] SCREENING W HELENE / PROCEDURE REASON: Encounter for screening mammogram for malignant neoplasm of breast * * * * Physician Interpretation * * * * RESULT: [place] [address] #[id number] - [facility]CREENING [facility] HELENE HISTORY: 49 year-old patient presents for screening. Patient is asymptomatic in both breasts. Patient states no personal history of breast cancer. The patient has a family history of breast cancer. COMPARISON STUDIES: The present examination has been compared to prior imaging studies dated 11/15/2022 (mammogram) and 04/10/2024 (mammogram). MAMMOGRAM TECHNIQUE: The study was acquired using full field digital technology and interpreted from soft copy. Digital Breast Tomosynthesis (DBT) images were obtained and used to assist in the interpretation of this examination. MAMMOGRAM FINDINGS: There are scattered areas of fibroglandular density. No suspicious masses, calcifications or other abnormalities are seen in either breast. There are no significant interval changes. IMPRESSION: There is no mammographic evidence of malignancy in either breast. Routine screening mammogram is recommended. Annual mammogram will be due in 1 year. BI-RADS Category 1: Negative RISK: Based on the Tyrer-Cuzick (TC) risk assessment model, this patient has a 7.1% lifetime risk of developing breast cancer, meaning they are at average risk for developing breast cancer. However, this is only an estimate based on available history provided on the patient's questionnaire. We encourage all patients to talk with their providers about these results, further recommendations for managing breast health, and appropriate supplemental screening options if the patient has dense breast tissue. Interpreting Radiologist: Taylor Amanda M.D. Electronically signed on: 04/13/2025 Linen Keeper: MANUEL Transcribe Date/Time: Apr 12 2025 2:42P Dictated by: TAYLOR AMANDA MD This examination was interpreted and the report reviewed and electronically signed by: TAYLOR AMANDA MD on Apr 13 2025 10:28AM EST [id number] N Normal [facility] XR HAND AND WRIST 6 VIEWS LE FTon 03-18-2025 XR HAND AND WRIST 6 VIEWS LEFT ORIGINAL EXAMINATION: 6 XRAY VIEWS OF THE LEFT wrist and HAND 03/18/2025 11:06 pm COMPARISON: None. HISTORY: ORDERING SYSTEM PROVIDED HISTORY: Reason for Exam: FALL, WRIST PAIN pain, fall FINDINGS: No acute fracture or dislocation. Carpal rows are maintained. No focal soft tissue abnormality is noted. IMPRESSION: No acute fracture or dislocation. Interpreted by: Karyn Strauss Preliminary Report By: Karyn Strauss Electronically signed By Karyn Strauss Dictated Date: 03/18/2025 11:15:21 PM Prelim Date: 03/18/2025 11:16:49 PM Sign Date: 03/18/2025 11:16:49 PM Ordering Provider: JAIME South [facility] CBC panel Auto (Bld)on 03-09 Erythrocyte distribution width (RBC) [Ratio] 12.9 % Normal 11.5-15.0 [facility] Comment on above: Order Comment: Speci men Type: BLOOD SPECIMENOrdering Facility: [facility] Address: [address] [place] [address] Performed By: #### 5 8410-2 ####[facility] [id number] [place] [address] [place] Hematocrit (Bld) [Volume fraction] 37.3 % Normal 36.0-46.0 [facility] Comment on above: Order Comment: Speci men Type: BLOOD SPECIMENOrdering Facility: [facility] Address: [address] [place] [address] Performed By: #### 5 8410-2 ####[facility] [id number] [place] [address] [place] Hemoglobin (Bld) [Mass/Vol] 12.2 g/dL Normal 11.5-15.5 [facility] Comment on above: Order Comment: Speci men Type: BLOOD SPECIMENOrdering Facility: [facility] Address: [address] [place] [address] Performed By: #### 5 8410-2 ####[facility] [id number] [place] [address] [place] MCH (RBC) [Entitic mass] 28.8 pg Normal 26.0-34.0 [facility] Comment on above: Order Comment: Speci men Type: BLOOD SPECIMENOrdering Facility: [facility] Address: [address] [place] [address] Performed By: #### 5 8410-2 ####[facility] [id number] [place] [id number] [place] MCHC (RBC) [Mass/Vol] 32.7 g/dL Normal 30.5-36.0 [facility] Comment on above: Order Comment: Speci men Type: BLOOD SPECIMENOrdering Facility: [facility] Address: [address] [place] [address] Performed By: #### 5 8410-2 ####[facility] [id number] [place] [address] [place] MCV (RBC) [Entitic vol] 88.2 fL Normal 80.0-100.0 [facility] Comment on above: Order Comment: Speci men Type: BLOOD SPECIMENOrdering Facility: [facility] Address: [address] [place] [address] Performed By: #### 5 8410-2 ####[facility] [id number] [place] [address] [place] Nucleated RBC (Bld) [#/Vol] 10*3/uL Normal <0.01 [facility] Comment on above: Order Comment: Speci men Type: BLOOD SPECIMENOrdering Facility: [facility] Address: [address] [place] [address] Performed By: #### 5 8410-2 ####[facility] [id number] [place] [address] [place] Platelet mean volume (Bld) [Entitic vol] 8.8 fL Low 9.0-12.7 [facility] Comment on above: Order Comment: Speci men Type: BLOOD SPECIMENOrdering Facility: [facility] Address: [address] [place] [address] Performed By: #### 5 8410-2 ####[facility] [id number] [place] [address] [place] Platelets (Bld) [#/Vol] 437 10*3/uL High 150-400 [facility] Comment on above: Order Comment: Speci men Type: BLOOD SPECIMENOrdering Facility: [facility] Address: [address] [place] [address] Performed By: #### 5 8410-2 ####[facility] [id number] [place] [address] [place] RBC (Bld) [#/Vol] 4.23 10*6/uL Normal 3.90-5.20 [facility] Comment on above: Order Comment: Speci men Type: BLOOD SPECIMENOrdering Facility: [facility] Address: [address] [place] [address] Performed By: #### 5 8410-2 ####[facility] [id number] [place] [address] [place] WBC (Bld) [#/Vol] 10.90 10*3/uL Normal 3.70-11.00 [facility] Comment on above: Order Comment: Speci men Type: BLOOD SPECIMENOrdering Facility: [facility] Address: [address] [place] [address] Performed By: #### 5 8410-2 ####[facility] [id number] [place] [address] [place] Comprehensive metabolic 2000 panelon 03-09-2025 Albumin [Mass/Vol] 4.4 g/dL Normal 3.9-4.9 [facility] Comment on above: Order Comment: Speci men Type: BLOOD SPECIMENOrdering Facility: [facility] Address: [address] [place] [address] Performed By: #### L IPNF, 18655-1 ####[facility] [id number] [place] [address] [place] ALP [Catalytic activity/Vol] 71 U/L Normal 34-123 [facility] Comment on above: Order Comment: Speci men Type: BLOOD SPECIMENOrdering Facility: [facility] Address: [address] [place] [address] Performed By: #### L IPNF, 71193-5 ####[facility] [id number] [place] [id number] [place] ALT [Catalytic activity/Vol] 25 U/L Normal 7-38 [facility] Comment on above: Order Comment: Speci men Type: BLOOD SPECIMENOrdering Facility: [facility] Address: [address] [place], [place] [address] Performed By: #### L IPNF, 92860-8 ####[facility] [id number] [address] [address] [place] Anion gap [Moles/Vol] 9 mmol/L Normal 8-15 [facility] Comment on above: Order Comment: Speci men Type: BLOOD SPECIMENOrdering Facility: [facility] Address: [address] [place] [address] Performed By: #### L IPNF, 17386-2 ####[facility] [id number] [place] [id number] [place] AST [Catalytic activity/Vol] 25 U/L Normal 13-35 [facility] Comment on above: Order Comment: Speci men Type: BLOOD SPECIMENOrdering Facility: [facility] Address: [address] [place] [address] Performed By: #### L IPNF, 84053-7 ####[facility] [id number] [place] [id number] [place] Bilirubin [Mass/Vol] 0.4 mg/dL Normal 0.2-1.3 [facility] Comment on above: Order Comment: Speci men Type: BLOOD SPECIMENOrdering Facility: [facility] Address: [address] [place], [place] [address] Performed By: #### L IPNF, 94348-0 ####[facility] [id number] [address] [address] [place] Calcium [Mass/Vol] 9.2 mg/dL Normal 8.5-10.2 [facility] Comment on above: Order Comment: Speci men Type: BLOOD SPECIMENOrdering Facility: [facility] Address: [address] [place], [place] [address] Performed By: #### L IPNF, 83754-8 ####[facility] [id number] [place] [id number] [place] Chloride [Moles/Vol] 104 mmol/L Normal 98-107 [facility] Comment on above: Order Comment: Speci men Type: BLOOD SPECIMENOrdering Facility: [facility] Address: [address] [place] [address] Performed By: #### L IPNF, 72272-9 ####[facility] [id number] [place] [address] [place] CO2 [Moles/Vol] 25 mmol/L Normal 22-30 [facility] Comment on above: Order Comment: Speci men Type: BLOOD SPECIMENOrdering Facility: [facility] Address: [address] [place] [address] Performed By: #### L IPNF, 32067-5 ####[facility] [id number] [address] STATES OF [facility] Creatinine [Mass/Vol] 0.73 mg/dL Normal 0.58-0.96 [facility] Comment on above: Order Comment: Speci men Type: BLOOD SPECIMENOrdering Facility: [facility] Address: [address] [place] [address] Performed By: #### L IPNF, 16310-5 ####[facility] [id number] [address] OF [facility] Creatinine and Glomerular filtration rate.predicted panel (S/P/Bld) 102 mL/min/1.73m??? Normal >=60 [facility] Comment on above: Order Comment: Speci men Type: BLOOD SPECIMENOrdering Facility: [facility] Address: [address] [place] [address] Result Comment: Suze mated Glomerular Filtration Rate (eGFR) is calculated using the 2020 CKD-EPI creatinine equation. This equation utilizes serum creatinine, sex, and age as parameters. The creatinine assay has traceable calibration to isotope dilution-mass spectrometry. Refer to KDIGO guidelines for clinical interpretation. In patients with unstable renal function, e.g. those with acute kidney injury, the eGFR may not accurately reflect actual GFR. Performed By: #### L AUGUSTO, 30440-1 ####[facility] [id number] [address] [address] [place] Glucose [Mass/Vol] 82 mg/dL Normal 74-99 [facility] Comment on above: Order Comment: Speci men Type: BLOOD SPECIMENOrdering Facility: [facility] Address: [address] [place] [address] Result Comment: The [place] Diabetes Association (ADA) provides guidance for cutoff values for fasting glucose and random glucose. The ADA defines fasting as no caloric intake for at least 8 hours. Fasting plasma glucose results between 100 to 125 mg/dL indicate increased risk for diabetes (prediabetes). Fasting plasma glucose results greater than or equal to 126 mg/dL meet the criteria for diagnosis of diabetes. In the absence of unequivocal hyperglycemia, results should be confirmed by repeat testing. In a patient with classic symptoms of hyperglycemia or hyperglycemic crisis, random plasma glucose results greater than or equal to 200 mg/dL meet the criteria for diagnosis of diabetes. Reference: Standards of Medical Care in Diabetes 2016, [place] Diabetes Association. Diabetes Care. 2016.39(Suppl 1). Performed By: #### L AUGUSTO, 10453-4 ####[facility] [id number] [address] [address] [place] Potassium [Moles/Vol] 4.6 mmol/L Normal 3.7-5.1 [facility] Comment on above: Order Comment: Markell lal Type: BLOOD SPECIMENOrdering Facility: [facility] Address: [address] [place] [id number] Performed By: #### L AUGUSTO, 03400-3 ####[facility] [id number] [address] [address] [place] Protein [Mass/Vol] 7.3 g/dL Normal 6.3-8.0 [facility] Comment on above: Order Comment: Markell lal Type: BLOOD SPECIMENOrdering Facility: [facility] Address: [address] [place] [address] Performed By: #### L IPNF, 32198-3 ####[facility] [id number] [place] [id number] [place] Sodium [Moles/Vol] 138 mmol/L Normal 136-144 [facility] Comment on above: Order Comment: Speci men Type: BLOOD SPECIMENOrdering Facility: [facility] Address: [address] [place] [address] Performed By: #### L IPNF, 91503-2 ####[facility] [id number] [place] [address] [place] Urea nitrogen [Mass/Vol] 9 mg/dL Normal 7-21 [facility] Comment on above: Order Comment: Speci men Type: BLOOD SPECIMENOrdering Facility: [facility] Address: [address] [place] [address] Performed By: #### L IPNF, 83206-3 ####[facility] [id number] [place] [address] [place] HbA1c (Bld)on 03-09-2025 Average glucose Estimated from glycated hemoglobin (Bld) [Mass/Vol] 114 mg/dL Normal [facility] Comment on above: Order Comment: Speci men Type: BLOOD SPECIMENOrdering Facility: [facility] Address: [address] [place] [address] Result Comment: eAG: (Estimated average glucose) is a calculated value from HgbA1c and is roofing sales representative of the average blood glucose level in the last 2-3 month period. Performed By: #### 5 5454-3 ####[facility] [id number] [place] [address] [place] HbA1c (Bld) [Mass fraction] 5.6 % Normal 4.3-5.6 [facility] Comment on above: Order Comment: Speci men Type: BLOOD SPECIMENOrdering Facility: [facility] Address: [address] [place] [address] Result Comment: [place] Diabetes Association guidelines indicate that patients with HgbA1c in the range 5.7-6.4% are at increased risk for development of diabetes, and intervention by lifestyle modification may be beneficial. HgbA1c greater or equal to 6.5% is considered diagnostic of diabetes. Performed By: #### 5 5454-3 ####[facility] [id number] [place] [address] [place] [facility] [place] LIPID PANEL, NONFASTINGon Cholesterol [Mass/Vol] 126 mg/dL Normal <200 [facility] Comment on above: Order Comment: Markell lal Type: BLOOD SPECIMENOrdering Facility: [facility] Address: [address] [place] [address] Result Comment: <200 mg/dL, Desirable 200-239 mg/dL, Borderline high >239 mg/dL, High Performed By: #### L IPNF, 16514-7 ####[facility] [id number] [place] [address] [place] HDL CHOLESTEROL, NF 40 mg/dL Normal >39 [facility] Comment on above: Order Comment: Markell lal Type: BLOOD SPECIMENOrdering Facility: [facility] Address: [address] [place] [address] Result Comment: 40-5 9 mg/dL, Acceptable >59 mg/dL, High: Negative risk factor for coronary heart disease <40 mg/dL, Low: Positive risk factor for coronary heart disease Performed By: #### L IPNF, 65518-5 ####[facility] [id number] [address] [place] LDL CHOLESTEROL CALCULATED, NF 59 mg/dL Normal <100 [facility] Comment on above: Order Comment: Markell lal Type: BLOOD SPECIMENOrdering Facility: [facility] Address: [address] [place] [address] Result Comment: <100 mg/dL, Optimal 100-129 mg/dL, Near optimal/above optimal 130-159 mg/dL, Borderline high 160-189 mg/dL, High >189 mg/dL, Very high Secondary prevention optimal LDL Cholesterol levels are recommended to be <70 mg/dL LDL cholesterol is calculated using the Caldwell-NIH equation. Performed By: #### L AUGUSTO, 09859-1 ####[facility] [id number] [address] OF [facility] LDL/HDL RATIO, NF 1.48 mg/dL Normal <2.54 [facility] Comment on above: Order Comment: Roxiei men Type: BLOOD SPECIMENOrdering Facility: [facility] Address: [address] [place] [address] Result Comment: Refe rence: 1. National Cholesterol Education Program ATP III Guideline At-A-Glance Quick Desk Reference: National Heart, Lung, and Blood [place]. National Institutes of Health. 2001: NIH Publication No. 01-3305. 2. An International Atherosclerosis Society position paper: global recommendations for the management of dyslipidemia: executive summary, Atherosclerosis. 2014: 232(2):410-413. Performed By: #### L AUGUSTO, ####[facility] [id number] [address] NON HDL CHOL, NF 86 mg/dL Normal <130 [facility] Comment on above: Order Comment: Markell lal Type: BLOOD SPECIMENOrdering Facility: [facility] Address: [address] [place] [address] Result Comment: <130 mg/dL, Optimal 130-159 mg/dL, Near optimal/above optimal 160-189 mg/dL, Borderline high 190-219 mg/dL, High >219 mg/dL, Very high Secondary prevention optimal non HDL Cholesterol levels are recommended to be <100 mg/dL Performed By: #### L AUGUSTO, ####[facility] [id number] [place] [id number] [facility] T CHOL/HDL RATIO NF 3.15 mg/dL Normal <5.10 [facility] Comment on above: Order Comment: Speci men Type: BLOOD SPECIMENOrdering Facility: [facility] Address: [address] [place] [address] Performed By: #### L IPNF, 49966-1 ####[facility] [id number] [place] [address] [place] TRIGLYCERIDES, NF 155 mg/dL High <150 [facility] Comment on above: Order Comment: Speci men Type: BLOOD SPECIMENOrdering Facility: [facility] Address: [address] [place] [address] Result Comment: <150 mg/dL, Normal 150-199 mg/dL, Borderline high 200-499 mg/dL, High >499 mg/dL, Very high Performed By: #### L IPNF, 99373-0 ####[facility] [id number] [place] [address] [place] VLDL CHOLESTEROL, NF 23 mg/dL Normal <30 [facility] Comment on above: Order Comment: Speci men Type: BLOOD SPECIMENOrdering Facility: [facility] Address: [address] [place] [address] Performed By: #### L IPNF, 36123-0 ####[facility] [id number] [place] [address] [place] CNOVon 03-05-2025 CNOV Office Visit (OBGYWM ) ANTONIA CORONADO ([id number]) 1975 F Date Time Provider Department 03/05/25 4:00 PM JUANA CRUZ OBWHITNEY During your visit today, we recorded the following information about you: Blood pressure Weight Height Last Period 124/82 134.3 kg 1.676 m 02/18/25 Juana Cruz APRN.METHODS ANALYST 03/05/2025 4:14 PM Signed Juliane is a 49 year old who presents for an annual gynecologic exam with complaints, heavy and irregular bleeding. Menses: cycles every months lasting about 3- 14 days- sometimes light but can be very heavy with large clots Contraception: tubal sterilization HPV vaccine: No Last Pap: 12/14/2022 normal HPV: 12/11/2022 negative History of abnormal pap: No Last mammogram: 2023 normal Sexually active: Yes OB History Gravida6 Para4 Term1 Preterm0 AB2 Living4 SAB2 IAB0 Ectopic0 Multiple0 Live Births4 Director Of Respiratory Therapy History LMP: 02/18/2025 (Exact Date), Perimenopausal Age at Menarche: 15 Age at First : Age at Menopause: Director Of Respiratory Therapy History Comments: Sexual Activity: Yes; Male Contraception: Tubal Ligation Menstrual Tracking History Flowsheet Row Office Visit from 03/05/2025 in OB/Gynecology Period Cycle (Days) 30 Period Duration (Days) 7 Menstrual Flow Heavy PAST MEDICAL HISTORY Diagnosis Date Anxiety and depression 12/26/2015 Depression FRACTURE FOOT Hemangioma of liver 12/14/2022 Hydronephrosis 08/25/2002 right hydronephrosis per [place] Marital conflict 02/12/2012 Multinodular goiter 02/18/2012 Obesity, unspecified 05/19/2012 05/19/2012Patient is obese. One-hour GCT drawn today. Panic 02/12/2012 Supervision of high-risk (HCC) 06/13/2012 06/13/12 - done - v23 - KK Unspecified essential hypertension 2006 Urinary calculus, unspecified 2001 Renal stones PAST SURGICAL HISTORY Procedure Laterality Date DELIVERY ONLY 12/31/12 , low transverse CHOLECYSTECTOMY 2000 Cholecystectomy DILATION AND CURETTAGE DXAND/THER NONOBSTETRIC 1999 Dilation AND curettage EXTENSIVE FOOT SURGERY 07/2010 Left Foot PAST SURGICAL HISTORY OF 12-24-07 left plantar fasciotomy TONSILLECTOMY PRIMARY/SECONDARY AGE 13/> 1997 TUBAL LIGATION, 12/31/12 pptl at time of FAMILY HISTORY Problem Relation Age of Onset Cancer Mother LIVER, GALL BLADDER Diabetes Mother borderline blood sugars other (glaucoma [Other]) Maternal Grandmother Cancer Maternal Grandmother Seizures Daughter Asthma Son SOCIAL HISTORY Social History Tobacco Use Smoking status: Former Current packs/day: 0.00 Types: Cigarettes Start date: 04/28/2010 Quit date: 04/28/2012 Years since quittin.8 Passive exposure: Current Smokeless tobacco: Never Tobacco comments: as a teen Vaping Use Vaping status: Never Used Substance Use Topics Alcohol use: Yes Comment: 1-2 mixed drinks per month Drug use: No REVIEW OF SYSTEMS Abdomen: No abdominal pain, nausea, vomiting, diarrhea, or constipation. No bloating, early satiety, indigestion, or increased flatulence. Bladder: No dysuria, gross hematuria, urinary frequency, urinary urgency, +stress incontinence. Breast: No breast lumps, nipple d/c, overlying skin changes, redness or skin retraction. Allergies and current medication updated:Yes SENSITIVE EXAM: The sensitive examination was discussed with the Patient or Patient's Authorized Metal Casting Trades Worker. As applicable, any other physician, advance practice provider, medical student, or other health professional student that will be observing or involved in the sensitive examination for educational or training purposes was discussed with the Patient or Authorized Metal Casting Trades Worker. The Patient or Authorized Metal Casting Trades Worker has agreed to proceed with the sensitive examination. (Sensitive examination includes inspection and/or palpation of the breasts, pelvis, prostate and anorectal regions). EXAM: BP 124/82 Ht 5' 6 (1.68m) Wt 296 lb (134.3kg) LMP 02/18/2025 BMI 47.80 kg/(m2). GENERAL: pleasant, female in no apparent distress HEENT: Normocephalic, atraumatic, mucus membranes moist, and no lesions DERMATOLOGY: Normal, without lesions, non-icteric, and non-hirsute BREAST: soft, non-tender, symmetric, no dominant mass, normal nipple-areolar complex, no lymphadenopathy, and no nipple discharge CHEST: Normal inspiratory effort ABDOMEN: soft, non-tender, and no masses PELVIC: external genitalia normal, normal Bartholin's glands, urethra, [place]'s glands, no vulvar lesions, no cervical lesions, physiologic discharge present, normal appearing perineal body and perianal region BIMANUAL: uterus normal size, shape and consistency, no adnexal masses, and non-tender RECTOVAGINAL: deferred. NEURO: alert and oriented x3,exam grossly non-focal EXTREMITIES: normal ASSESSMENT/PLAN: 1. Encounter for gynecological exa (more content not included)... Normal [facility] CNOVon 02-23-2025 CNOV Office Visit (INTMWS ) ANTONIA CORONADO ([id number]) 1975 F Date Time Provider Department 02/23/25 2:40 PM BARBARA CORONADO INTMWS During your visit today, we recorded the following information about you: Pulse Respiration Blood pressure Weight 94/minute 16/minute 122/84 136.5 kg Barbara Coronado, SENIOR UI UX DEVELOPER.METHODS ANALYST 02/23/2025 2:58 PM Signed We discussed your asthma and allergies: - I sent a refill for your albuterol inhaler to your preferred pharmacy. Use it as needed, particularly when you anticipate being outside for extended periods, such as during your children?s sporting events. - Continue taking Claritin daily for your allergies. If your congestion persists, I recommend adding Flonase nasal spray to help alleviate symptoms. We discussed your blood pressure: - Your blood pressure today was 122/84, which is close to your usual range. Given the recent stress you?ve experienced, it?s understandable that your blood pressure has been higher at home. - For now, I recommend not checking your blood pressure frequently, as this may increase your stress. If you feel unwell or notice concerning symptoms, please let me know. We discussed your migraines: - You reported having two migraines in the past couple of weeks, which is more frequent than usual. Stress appears to be a trigger for you at this time. - Continue using Zofran and Imitrex as needed for migraine management. Let me know if your migraines become more frequent or if you experience any new or unusual symptoms. We discussed your routine health maintenance: - Your mammogram is due in March. You can schedule this through [facility], but please ensure it is scheduled for March or later to ensure insurance coverage. If March is too busy, it is fine to schedule it in April. - You are due for blood work. I ordered a non-fasting cholesterol test so you can complete it today. If additional fasting labs are needed, you can return on Saturday to complete them. Follow-up: - We will see you again in 6 months for your next routine visit. This will be in July. If you need to adjust the appointment, please let us know. Barbara Coronado, SENIOR UI UX DEVELOPER.METHODS ANALYST 02/23/2025 3:07 PM Signed CC: Patient presents with: Follow Up: 6 months Ear Pain: Bilateral ear pain x 1 week HPI Recording using [employer] software for draft documentation of the visit was discussed with the patient/authorized roofing sales representative; all questions welcomed and answered. Patient/authorized roofing sales representative agreed to proceed Juliane is a 49-year-old female with a history of asthma, HTN, and migraines, presenting for a routine follow-up and albuterol refill. Juliane uses albuterol as needed for asthma, primarily during spring and summer due to allergies. She reports using the inhaler once or twice a day when outside for extended periods, such as during her children's sporting events. She also takes Claritin for allergies, which is effective most of the time, but she is currently experiencing congestion and bilateral otalgia, with the right ear being more affected than the left. She denies any recent rhinorrhea. She is currently taking lisinopril for HTN and denies experiencing dizziness or lightheadedness. She monitors her blood pressure at home, which has been well-controlled until about 3 weeks ago. She attributes the recent increase in blood pressure to significant stress, including her daughter's hospitalizations and the loss of a grandchild. Her blood pressure has been consistently elevated over the past 2 weeks. Juliane also has a history of migraines, for which she takes Zofran and Imitrex. She typically experiences migraines once a month or less, but has had two episodes in the past couple of weeks, which she attributes to increased stress. She denies any new or unusual migraine symptoms. Review of Systems See HPI PAST MEDICAL HISTORY Diagnosis Date Anxiety and depression 12/26/2015 Depression FRACTURE FOOT Hemangioma of liver 12/14/2022 Hydronephrosis 08/25/2002 right hydronephrosis per [place] Marital conflict 02/12/2012 Multinodular goiter 02/18/2012 Obesity, unspecified 05/19/2012 05/19/2012Patient is obese. One-hour GCT drawn today. Panic 02/12/2012 Supervision of high-risk (HCC) 06/13/2012 06/13/12 - done - v23 - KK Unspecified essential hypertension 2007 Urinary calculus, unspecified 2001 Renal stones PAST SURGICAL HISTORY Procedure Laterality Date DELIVERY ONLY 12/31/12 , low transverse CHOLECYSTECTOMY 2000 Cholecystectomy DILATION AND CURETTAGE DXAND/THER NONOBSTETRIC 1999 Dilation AND curettage EXTENSIVE FOOT SURGERY 07/2010 Left Foot PAST SURGICAL HISTORY OF 12-24-07 left plantar fasciotomy TONSILLECTOMY PRIMARY/SECONDARY AGE 12/1997 TUBAL LIGATION, 12/31/12 pptl at time of ALLERGIES Grass P (more content not included)... Normal [facility] Ankle min 3 Viewson 01-26-[address] [facility] Services [address] [place], [place] [address] Ankle min 3 Views MR#: [id number] Acct: [id number] Name: ANTONIA CORONADO Rep #: [id number] : 1975 F 49 From: Chris Sánchez MD PCP: Dr. Fransisco Angel MD Status: REG ER Study: Ankle min 3 Views Date of Exam: 01/25/25 Exam# [id number] Ordering Dr: Wai Donnelly DO PROCEDURE: ANKLE MIN 3 VIEWS 01/25/2025 REASON FOR EXAM: PAIN TECHNIQUE: 3 views of the left ankle COMPARISON: None FINDINGS: There is screw fixation of the 5th metatarsal with chronic features. No acute fracture or dislocation is identified. The ankle mortise is not widened. A benign-appearing calcaneal spur is noted. RAD/Ankle min 3 Views IMPRESSION: There is screw fixation of the 5th metatarsal with chronic features. Reading Location: [facility] CC: Dr. Wai Donnelly DO; Dr. Fransisco Angel MD Linen Keeper: Signed Normal [facility] Emergency Department Summary on 01-25-2025 Emergency Department Summary [facility] Medical Records Department [address] [place] [address] Emergency Department Summary 01/25/25 MR#: [id number] Acct: [id number] Name: ANTONIA CORONADO Rep #: [id number] : 1975 49 From: Wai Fitch PCP: Dr. Fransisco Angel MD Status:DEP ER Location: ED HPI History of Present Illness Chief Complaint: Lower Extremity Injury Informant: patient Narrative Narrative: Left ankle injury this past Saturday. Been limping on it. Tylenol and Motrin taken with no relief. History of foot fracture with surgical repair in the past. No history of gastric ulcers or kidney injury. No other injuries. PFSH PFSH Medical History Hypertension Home Medications ???Medication ???Instructions ???Recorded ???Last Taken ???Type albuterol sulfate 90 mcg/actuation 2 puff inhalation Q4H PRN PRN Unknown Rx aerosol inhaler Wheezing ##1 lisinopril 10 mg tablet 10 mg PO DAILY 12/25/23 Unknown Hi story tramadol 50 mg tablet 50 mg PO Q6H PRN pain #12 tabs Unknown Rx Allergy/AdvReac Type Severity Reaction Status Date / Time naproxen (From Naprosyn) AdvReac Vomiting Verified 01/25/25 12:25 Surgical History Hx of foot surgery Hx of tonsillectomy Hx of cholecystectomy Social History Smoking Status: Never smoker ROS ROS ED Constitutional Constitutional ED: Denies fever(s) ENT ENT ED: Denies sore throat Respiratory/Chest Respiratory/Chest: Denies cough Gastrointestinal Gastrointestinal: Denies diarrhea, nausea or vomiting Musculoskeletal Musculoskeletal: Reports extremity pain; Denies back pain or neck pain Integumentary Denies rash or wounds EXAM Physical Exam Const Vital Signs: 01/25/25 12:24 01/25/25 13:24 Temperature 97.8 F Temperature Source Oral Pulse Rate 93 87 Respiratory Rate 18 16 Blood Pressure 188/94 H 130/94 H Blood Pressure Mean 125 106 Pulse Ox 97 99 Oxygen Delivery Method Room Air Positive well nourished and well developed General Appearance ED: well developed and NAD HEENT Reports moist mucous membranes normocephalic and atraumatic Eyes General Eye ED: Yes normal appearance of both eyes Neck full ROM Chest Wall Chest: Negative for tenderness Resp normal respiratory effort and normal air movement Effort and Inspection: symmetric chest movement; Negative for respiratory distress Cardio regular rate, regular rhythm and no murmurs Peripheral Pulses: pulses 2+ throughout GI normal to inspection, nondistended, normoactive bowel sounds and non-tender Palpation: Negative for guarding or rebound tenderness present Extremity Extremity Narrative: Left lower extremity: No knee tenderness. There is tender palpation ankle deltoid ligament and mild tenderness lateral malleolus. No deformities. No midfoot or proximal fifth base tenderness. Skin intact. Neuro vas intact distally. General Extremety ED: Yes tenderness; Negative for edema General Extremity: Negative for edema Neuro oriented x3 and no sensory deficits noted Sensorium / Orientation: awake and alert Skin no rashes or lesions noted and no wounds MDM MDM MDM Narrative Medical decision making narrative: Interventions / MDM: Differential diagnosis: Sprain Diagnosis considered but do not suspect: Fracture x-ray negative My EKG interpretation: N/A Imaging independently reviewed and interpreted by myself: 3 view left ankle: Arthritic changes of the left ankle mortise intact, no fracture or dislocation, fifth metatarsal screw noted to be intact. External documents reviewed: N/A Test considered but not ordered:N/A ED course: X-ray obtained through triage interpreted myself arthritic change no fractures noted. She provided Aircast and crutches. She will continue Motrin discussed excellent mg every 6 hours. Short prescription for tramadol to use as needed. She is given follow-up with podiatry. All questions were answered. Re-evaluation: stable Disposition discussed with patient/family/signif icamartin other: Patient Case discussed with consulting clinician: N/A This note was generated with [employer] dictation software. It may contain incorrect words, spelling, and punctuation that were not noted in checking the note before signing. 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 Reading Location: [facility] Discharge Plan Triage Chief Complaint: Lower Extremity Injury ED Provider (more content not included)... Normal [facility] CNOVon 01-01-2025 CNOV Office Visit (INTMWS ) ANTONIA CORONADO ([id number]) 1975 F Date Time Provider Department 01/01/25 8:00 AM BARBARA CORONADO INTMWS During your visit today, we recorded the following information about you: Pulse Respiration Blood pressure Weight 84/minute 12/minute 122/78 136 kg Barbara Coronado, SENIOR UI UX DEVELOPER.METHODS ANALYST 01/01/2025 8:06 AM Signed We discussed your migraine: - I administered a Toradol injection today to help alleviate your headache. While it may not completely resolve the pain, it should make you more comfortable until you can take your Imitrex. 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 Please take it as soon as you get home. - I prescribed Zofran for nausea. Take one tablet every 8 hours as needed. - In the future, if you are out of Imitrex and feel a migraine starting, please call our office for a refill to prevent the headache from worsening. - If your headache is not significantly better by Saturday or if it worsens, please contact our office. If it becomes severe (10/10 pain) or you experience any of the following symptoms, go to the emergency room immediately: - Stroke-like symptoms (slurred speech, facial drooping, weakness on one side of the body). - Persistent vomiting. - High fever. - Confusion or passing out. We provided a work note for today, as requested. Please let us know if you have any further questions or concerns. Barbara Coronado, SENIOR UI UX DEVELOPER.METHODS ANALYST 01/01/2025 9:37 AM Signed CC: Patient presents with: Headache: X 3 days HPI The patient consented to the use of [employer] software for draft documentation of the visit consistent with [facility]?s Notice of Privacy Practices. Juliane is a 49-year-old female presenting with a severe migraine headache. Juliane reports a migraine that began on Saturday and has progressively worsened, becoming constant today. She describes the pain as primarily throbbing, occasionally stabbing, and affecting her entire head. The intensity is greater than her usual migraines, stating, I feel like my head's just going to explode. She has experienced increased emesis, vomiting twice at work today, which is more frequent than with previous migraines. She denies blurred vision, dizziness, or phonophobia, but notes mild photophobia, stating, these lights are kind of sucking right now. She denies fever, chills, recent head trauma, balance or coordination issues, or paresthesia. She has not had a migraine in several months and is out of Imitrex, which usually provides relief. She has tried ibuprofen, Tylenol, and Excedrin Migraine without relief. She denies recent illnesses such as sinus infections or colds. She has a known allergy to naproxen, which causes emesis. Review of Systems Constitutional: Negative for chills, diaphoresis and fever. HENT: Negative for congestion. Respiratory: Negative for shortness of breath. Cardiovascular: Negative for chest pain, palpitations and leg swelling. Musculoskeletal: Negative for neck stiffness. Neurological: Negative for tremors, seizures, syncope, facial asymmetry, speech difficulty, weakness, light-headedness and numbness. Psychiatric/Behaviora l: Negative for confusion. PAST MEDICAL HISTORY Diagnosis Date Anxiety and depression 12/26/2015 Depression FRACTURE FOOT Hemangioma of liver 12/14/2022 Hydronephrosis 08/25/2002 right hydronephrosis per [place] Marital conflict 02/12/2012 Multinodular goiter 02/18/2012 Obesity, unspecified 05/19/2012 05/19/2012Patient is obese. One-hour GCT drawn today. Panic 02/12/2012 Supervision of high-risk (HCC) 06/13/2012 06/13/12 - RA done - v23 - KK Unspecified essential hypertension 2006 Urinary calculus, unspecified 2001 Renal stones PAST SURGICAL HISTORY Procedure Laterality Date DELIVERY ONLY 12/31/12 , low transverse CHOLECYSTECTOMY 2000 Cholecystectomy DILATION AND CURETTAGE DXAND/THER NONOBSTETRIC 1999 Dilation AND curettage EXTENSIVE FOOT SURGERY 07/2010 Left Foot PAST SURGICAL HISTORY OF 12-24-07 left plantar fasciotomy TONSILLECTOMY PRIMARY/SECONDARY AGE 13/> 1997 TUBAL LIGATION, 12/31/12 pptl at time of ALLERGIES Grass Pollen and Naprosyn [Naproxen] MEDICATIONS albuterol HFA (PROAIR HFA) 90 mcg/actuation inhalerInhale 2 Puffs as instructed every 6 hours as needed for wheezing/shortness of breath.Disp: 1 EachRfl: 2 lisinopril (ZESTRIL) 10 mg tabletTake 1 tablet by mouth once daily.Disp: 90 tabletRfl: 3 multivitamin tabletTake 1 tablet by mouth once daily.Disp: Rfl: loratadine (CLARITIN) 10 mg tabletTake 1 tablet by mouth once daily.Disp: 14 tabletRfl: 0 ACETAMINOPHEN (TYLENOL ORAL)Take by mouth as needed.Disp: Rfl: SUMAtriptan (IMITREX) 50 mg tabletTake one tablet as needed for migraine/headache. Can repeat in 2 hours if inef (more content not included)... Normal [facility] Emergency Department Summary on 10-01-2024 Emergency Department Summary [facility] Medical Records Department [address] [place] [id number] Emergency Department Summary 10/01/24 MR#: [id number] Acct: [id number] Name: ANTONIA CORONADO Rep #: [id number] : 1975 48 From: Guillermo Hinton DO PCP: Dr. Fransisco Angel MD Status:DEP ER Location: ED HPI History of Present Illness HPI Narrative: Patient presents with left wrist injury that occurred last night. Patient states she was taking her dogs out and the dog pulled her down some steps. Patient landed on her left wrist. Patient denies any paresthesias or weakness. Patient denies any head injury or loss of consciousness. Patient states her pain is over her left wrist. Patient states it is aching but stabbing with certain movements. Patient states it gets better with rest. Patient denies any other injuries. Chief Complaint: Upper Extremity Injury Informant: patient Occured/Mechanism Mechanism/Context: Yes fall Onset/Context/Timing Onset: Yesterday Context: Sudden Onset Timing: Continuous Quality of Pain: Aching and Stabbing (With movement) Location: Left wrist Worsened by: Movement Relieved by: Rest Associated Symptoms Associated Symptoms: Negative for Parasthesia, Weakness or Loss of Funtion [facility] Medical History (Updated 10/01/24 @ 09:[address] Guillermo Hinton, DO) Hypertension Home Medications ???Medication ???Instructions ???Recorded ???Last Taken ???Type albuterol sulfate 90 mcg/actuation 2 puff inhalation Q4H PRN PRN 09/20/19 Unknown Rx aerosol inhaler Wheezing ##1 lisinopril 10 mg tablet 10 mg PO DAILY 12/25/23 Unknown History Allergy/AdvReac Type Severity Reaction Status Date / Time naproxen (From Naprosyn) AdvReac Vomiting Verified 08/04/24 06:30 Surgical History Hx of foot surgery Hx of tonsillectomy Hx of cholecystectomy Social History Smoking Status: Never smoker ROS ROS ED Constitutional Constitutional ED: Denies chills or fever(s) Eyes Eyes: Denies blurry vision or change in vision ENT ENT ED: Denies rhinorrhea or sore throat Cardiovascular Cardiovascular: Denies chest pain or palpitations Respiratory/Chest Respiratory/Chest: Denies cough or dyspnea Gastrointestinal Gastrointestinal: Denies nausea or vomiting Genitourinary Genitourinary ED: Denies dysuria or hematuria Musculoskeletal Musculoskeletal: Denies back pain or neck pain Integumentary Denies abscess or rash Neurologic Neurologic: Denies headache(s) or weakness Allergic/Immunologic Allergic/Immunologic ED: Denies mouth swelling or urticaria EXAM Physical Exam Const Vital Signs: 10/01/24 08:57 Temperature 97.6 F L Temperature Source Oral Pulse Rate 81 Respiratory Rate 16 Blood Pressure 180/135 H Blood Pressure Mean 150 Pulse Ox 100 Oxygen Delivery Method Room Air Positive well nourished and well developed General Appearance ED: well developed and NAD HEENT Reports moist mucous membranes Neck full ROM and supple Extremity Extremity Narrative: There is diffuse tenderness over the left wrist. There is no deformity. There is some mild edema. Range of motion was limited in all motions of the left wrist secondary to pain. Radial pulses are equal bilateral. Sensation was intact to light touch in the radial, median, and ulnar areas. Drinks is 5/5 in the radial, median, and ulnar areas. Neuro oriented x3, CN's II-XII intact bilaterally, moves all extremities, no focal motor deficits and no sensory deficits noted Sensorium / Orientation: alert Motor Exam: strength 5/5 throughout Psych mental status grossly normal MDM MDM MDM Narrative Medical decision making narrative: Differential diagnosis includes fracture, sprain, and contusion. X-rays of the left wrist will be obtained to assess for fracture. Radiography Diagnostic Testing: X-rays of the left wrist were obtained. There are 3 views. On my independent interpretation, there is no acute fracture. There is no dislocation noted. Radiologist also interpreted the x-ray and noted the angulation of the distal fifth metacarpal. Treatment and Re-Evaluation Narrative: Patient was given a dose of ibuprofen here. Patient was advised of her findings. Patient is not tender over her fifth metacarpal. Patient states she has a prior fracture of her fifth metacarpal. Patient was advised that the angular deformity of her fifth metacarpal was likely from her prior fracture. Patient was given a Velcro wrist splint. Patient was instructed to ice and elevate the left wrist. Patient was instructed to take ibuprofen or Tylenol as needed for pain. Patient was instructed to follow-up with her primary care physician in 5 to 7 days. Patient understood and was (more content not included)... Normal [facility] Wrist min 3 Viewson 10-01-[address] [facility] Imaging Services [address] [place] [address] Wrist min 3 Views MR#: [id number] Acct: [id number] Name: ANTONIA CORONADO Rep #: [id number] : 1975 F 48 From: Fernando Beyer MD PCP: Dr. Fransisco Angel MD Status: REG ER Study: Wrist min 3 Views Date of Exam: 10/01/24 Exam# [id number] Ordering Dr: Guillermo Hinton DO [id number] STUDY: X-RAY - LEFT WRIST REASON FOR EXAM: Female, 48 years old. Injury / Pain. TECHNIQUE: 3 views of the left wrist were obtained. COMPARISON: None. FINDINGS: Normal visualized distal radius and ulna. Normal radiocarpal articulation. Normal distal radioulnar articulation. Normal carpal bones. Normal carpal articulations. Normal carpometacarpal articulation of the thumb. Normal second through fifth carpometacarpal articulations. There is an anterior angulation deformity of the distal shaft of the fifth metacarpal. Normal first through fourth visualized metacarpal bones. The soft tissue structures are unremarkable. RAD/Wrist min 3 Views IMPRESSION: Anterior angulation deformity of the distal shaft of the fifth metacarpal. Electronically Signed: Fernando Beyer MD at 9:32 EST , CC: Dr. Guillermo Hinton DO; Dr. Fransisco Angel MD Linen Keeper: Signed [facility] 09-07-2024 [facility] Office Visit (UCTR ) ANTONIA CORONADO ([id number]) 1975 F Date Time Provider Department 09/07/24 3:30 PM [address]AYA [facility] During your visit today, we recorded the following information about you: Temperature Pulse Respiration Blood pressure 98.5 degrees 73/minute 20/minute 120/70 Weight 131.9 kg Zoe Raya APRN.[facility] 09/07/2024 5:31 PM Signed This note was created using NoteWriter. Subjective Antonia Coronado is a 48 year old female. 48 year old female with PMH HTN, bronchospasm, anxiety and depression presents for illness. Acute onset 3 weeks ago +cough Non productive +chest congestion +chills Denies CP Denies hemoptysis Denies dyspnea Denies fever Seen 08/24/24 by PCP COVID negative Brionnajosedavid Lianetumesh Denies tobacco usage The history is provided by the patient. No record searcher was used. Cough This is a new problem. The current episode started more than 1 week ago. The problem occurs constantly. The problem has been gradually worsening. The cough is Non-productive. There has been no fever. Associated symptoms include chills, ear congestion, rhinorrhea, shortness of breath and wheezing. Pertinent negatives include no chest pain, no sweats, no weight loss, no ear pain, no headaches, no sore throat, no myalgias and no eye redness. She has tried nothing for the symptoms. She is not a smoker. Her past medical history does not include bronchitis, pneumonia, bronchiectasis, COPD, emphysema or asthma. PAST MEDICAL HISTORY Diagnosis Date Anxiety and depression 12/26/2015 Depression FRACTURE FOOT Hemangioma of liver 12/14/2022 Hydronephrosis 08/25/2002 right hydronephrosis per [place] Marital conflict 02/12/2012 Multinodular goiter 02/18/2012 Obesity, unspecified 05/19/2012 05/19/2012Patient is obese. One-hour GCT drawn today. Panic 02/12/2012 Supervision of high-risk 06/13/2012 06/13/12 - RA done - v23 - KK Unspecified essential hypertension 2006 Urinary calculus, unspecified 2001 Renal stones PAST SURGICAL HISTORY Procedure Laterality Date DELIVERY ONLY 12/31/12 , low transverse CHOLECYSTECTOMY 2000 Cholecystectomy DILATION AND CURETTAGE DXAND/THER NONOBSTETRIC 1999 Dilation AND curettage EXTENSIVE FOOT SURGERY 07/2010 Left Foot PAST SURGICAL HISTORY OF 12-24-07 left plantar fasciotomy TONSILLECTOMY PRIMARY/SECONDARY AGE 13/> 1997 TUBAL LIGATION, 12/31/12 pptl at time of ALLERGIES Grass Pollen and Naprosyn [Naproxen] MEDICATIONS albuterol HFA (PROAIR HFA) 90 mcg/actuation inhaler Inhale 2 Puffs as instructed every 6 hours as needed for wheezing/shortness of breath. lisinopril (ZESTRIL) 10 mg tablet Take 1 tablet by mouth once daily. SUMAtriptan (IMITREX) 50 mg tablet Take one tablet as needed for migraine/headache. Can repeat in 2 hours if ineffective. No more than 2 tablets in 24 hours. multivitamin tablet Take 1 tablet by mouth once daily. ACETAMINOPHEN (TYLENOL ORAL) Take by mouth as needed. doxycycline (VIBRA-TABS) 100 mg tablet Take 1 tablet by mouth two times a day for 10 days. predniSONE (DELTASONE) 10 mg tablet Take 4 tabs daily for 3 days, then 2 tabs daily for 3 days, then 1 tab daily for 3 days with food. Benzonatate 200 mg capsule Take 1 capsule by mouth three times a day as needed. (Patient not taking: Reported on 09/07/2024) loratadine (CLARITIN) 10 mg tablet Take 1 tablet by mouth once daily. (Patient taking differently: Take 10 mg by mouth as needed.) FAMILY HISTORY Problem Relation Age of Onset Cancer Mother LIVER, GALL BLADDER Diabetes Mother borderline blood sugars other (glaucoma [Other]) Maternal Grandmother Cancer Maternal Grandmother Seizures Daughter Asthma Son Social History Tobacco Use Smoking status: Former Current packs/day: 0.00 Types: Cigarettes Start date: 04/28/2010 Quit date: 04/28/2012 Years since quittin.3 Passive exposure: Current Smokeless tobacco: Never Tobacco comments: as a teen Vaping Use Vaping status: Never Used Substance Use Topics Alcohol use: Yes Comment: 1-2 mixed drinks per month Drug use: No Review of Systems Constitutional: Positive for chills. Negative for weight loss. HENT: Positive for congestion, postnasal drip, rhinorrhea, sinus pressure and sinus pain. Negative for ear pain and sore throat. Eyes: Negative for pain, discharge, redness and itching. Respiratory: Positive for cough, shortness of breath and wheezing. Cardiovascular: Negative for chest pain. Gastrointestinal: Negative for abdominal pain, diarrhea, nausea and vomiting. Musculoskeletal: Negative for back pain and myalgias. Skin: Negative for color change, pallor, rash and wound. Allergic/Immunologic: Negative for environmental allergies, food allergies and immunocompromised state. Neurological: Negat (more content not included)... Normal [facility] XR CHEST 2V FRONTAL/LATon XR CHEST 2V FRONTAL/LAT * * *Final Repor t* * * DATE OF EXAM: Sep 07 2024 3:57PM WOX [id number] - XR CHEST 2V FRONTAL/LAT / PROCEDURE REASON: Acute cough * * * * Physician Interpretation * * * * EXAMINATION: CHEST RADIOGRAPH (2 VIEW FRONTAL and LATERAL) CLINICAL HISTORY: Acute cough MQ: XC2_6 EXAM DATE/TIME: 09/07/2024 3:57 PM COMPARISON: Chest x-ray on 06/12/2023 RESULT: Lines, tubes, and devices: None. Lungs and pleura: Small lung volume. No consolidation. No lung mass. No pleural effusion. No pneumothorax. Cardiomediastinal silhouette: Stable cardiomediastinal silhouette. Bones and soft tissues: The spine shows degenerative changes. IMPRESSION: No acute radiographic abnormality. Linen Keeper: JERONIMO Transcribe Date/Time: Sep 07 2024 3:57P Dictated by : RENA CAMP MD This examination was interpreted and the report reviewed and electronically signed by: RENA CAMP MD on Sep 07 2024 3:58PM EST [id number] Normal [facility] XR Chest PA and Lateralon IMPRESSION: No acute radiographic abnormality. Linen Keeper: PSC Transcribe Date/Time: Sep 07 2024 3:57P Dictated by : RENA CAMP MD This examination was interpreted and the report reviewed and electronically signed by: RENA CAMP MD on Sep 07 2024 3:58PM EST DIVISION OF RADIOLOGY * * *Final Report* * * DATE OF EXAM: Sep 07 2024 3:57PM WOX [id number] - XR CHEST 2V FRONTAL/LAT / PROCEDURE REASON: Acute cough * * * * Physician Interpretation * * * * EXAMINATION: CHEST RADIOGRAPH (2 VIEW FRONTAL & LATERAL) CLINICAL HISTORY: Acute cough MQ: XC2_6 EXAM DATE/TIME: 09/07/2024 3:57 PM COMPARISON: Chest x-ray on 06/12/2023 RESULT: Lines, tubes, and devices: None. Lungs and pleura: Small lung volume. No consolidation. No lung mass. No pleural effusion. No pneumothorax. Cardiomediastinal silhouette: Stable cardiomediastinal silhouette. Bones and soft tissues: The spine shows degenerative changes. DIVISION OF RADIOLOGY Provider, Julia ramirez [place] - 09/07/2024 * * *Final Report* * * DATE OF EXAM: Sep 07 2024 3:57PM WOX 5291 - XR CHEST 2V FRONTAL/LAT / PROCEDURE REASON: Acute cough * * * * Physician Interpretation * * * * EXAMINATION: CHEST RADIOGRAPH (2 VIEW FRONTAL & LATERAL) CLINICAL HISTORY: Acute cough MQ: XC2_6 EXAM DATE/TIME: 09/07/2024 3:57 PM COMPARISON: Chest x-ray on 06/12/2023 RESULT: Lines, tubes, and devices: None. Lungs and pleura: Small lung volume. No consolidation. No lung mass. No pleural effusion. No pneumothorax. Cardiomediastinal silhouette: Stable cardiomediastinal silhouette. Bones and soft tissues: The spine shows degenerative changes. IMPRESSION IMPRESSION: No acute radiographic abnormality. Linen Keeper: PSCB Transcribe Date/Time: Sep 07 2024 3:57P Dictated by : RENA CAMP MD This examination was interpreted and the report reviewed and electronically signed by: RENA CAMP MD on Sep 07 2024 3:58PM EST [facility] Radiology Study observation (narrative) Lan Banerjee XR Chest PA and LateralOrder ed By: [facility] Provider on 09-07-2024 [facility] CNOVon 08-24-2024 CNOV Office Visit (INTMWS ) ANTONIA CORONADO ([id number]) 1975 F Date Time Provider Department 08/24/24 2:40 PM BARBARA CORONADO INTMWS During your visit today, we recorded the following information about you: Temperature Pulse Blood pressure Weight 98.6 degrees 91/minute 112/78 130.6 kg Height 1.702 m Barbara Coronado, SENIOR UI UX DEVELOPER.METHODS ANALYST 08/24/2024 3:00 PM Signed CC: Patient presents with: Follow Up: Blood pressure, cough and chest congestion for 2 days HPI Antonia Coronado is a 48 year old female who presents today for above. HTN-Medication changes:No Taking all medications as prescribed: Yes Side effects: No Home BP's: No Denies: headache, chest pain, palpitations, dyspnea, and peripheral edema. Last 3 Encounter BP Readings: Date: BP: 08/24/2024 112/78 05/01/2024 133/79 03/03/2024 118/72 Respiratory infection: Symptoms began two days ago and are worsening Symptoms include: Temperature elevation: No Chills: Yes Cough: Yes, dry and non-productive Shortness of breath: Yes Fatigue: Yes Muscle aches: No Headache: No New loss of smell or taste: No Sore throat: No Nasal congestion: Yes Rhinorrhea: Yes Nausea and/or vomiting: No Diarrhea: No Other Associated symptoms: none. PMH: asthma OTC meds/remedies that patient has tried: OTC cold medicine. Exposures: Sick contacts? Yes, daughter had URI Family or close contacts with confirmed/probable COVID-19 in last 14 days? No Home COVID test: No Review of Systems See HPI PAST MEDICAL HISTORY Diagnosis Date Anxiety and depression 12/26/2015 Depression FRACTURE FOOT Hemangioma of liver 12/14/2022 Hydronephrosis 08/25/2002 right hydronephrosis per [place] Marital conflict 02/12/2012 Multinodular goiter 02/18/2012 Obesity, unspecified 05/19/2012 05/19/2012Patient is obese. One-hour GCT drawn today. Panic 02/12/2012 Supervision of high-risk 06/13/2012 06/13/12 - RA done - v23 - KK Unspecified essential hypertension 2007 Urinary calculus, unspecified 2001 Renal stones PAST SURGICAL HISTORY Procedure Laterality Date DELIVERY ONLY 12/31/12 , low transverse CHOLECYSTECTOMY 2000 Cholecystectomy DILATION AND CURETTAGE DXAND/THER NONOBSTETRIC 1999 Dilation AND curettage EXTENSIVE FOOT SURGERY 07/2010 Left Foot PAST SURGICAL HISTORY OF 12-24-07 left plantar fasciotomy TONSILLECTOMY PRIMARY/SECONDARY AGE 13/> 1997 TUBAL LIGATION, 12/31/12 pptl at time of ALLERGIES Grass Pollen and Naprosyn [Naproxen] MEDICATIONS albuterol HFA (PROAIR HFA) 90 mcg/actuation inhaler Inhale 2 Puffs as instructed every 6 hours as needed for wheezing/shortness of breath. lisinopril (ZESTRIL) 10 mg tablet Take 1 tablet by mouth once daily. SUMAtriptan (IMITREX) 50 mg tablet Take one tablet as needed for migraine/headache. Can repeat in 2 hours if ineffective. No more than 2 tablets in 24 hours. multivitamin tablet Take 1 tablet by mouth once daily. loratadine (CLARITIN) 10 mg tablet Take 1 tablet by mouth once daily. (Patient taking differently: Take 10 mg by mouth as needed.) ACETAMINOPHEN (TYLENOL ORAL) Take by mouth as needed. topiramate (TOPAMAX) 25 mg tablet Take 1 tablet by mouth daily at bedtime. FAMILY HISTORY Problem Relation Age of Onset Cancer Mother LIVER, GALL BLADDER Diabetes Mother borderline blood sugars other (glaucoma [Other]) Maternal Grandmother Cancer Maternal Grandmother Seizures Daughter Asthma Son Social History Tobacco Use Smoking status: Former Current packs/day: 0.00 Types: Cigarettes Start date: 04/28/2010 Quit date: 04/28/2012 Years since quittin.3 Passive exposure: Current Smokeless tobacco: Never Tobacco comments: as a teen Vaping Use Vaping status: Never Used Substance Use Topics Alcohol use: Yes Comment: 1-2 mixed drinks per month Drug use: No BP 112/78 (BP Site: Left Arm) Pulse 91 Temp 37 ?C (98.6 ?F) Ht 170.2 cm (5' 7) Wt 130.6 kg (287 lb 14.7 oz) LMP 02/18/2024 (Exact Date) SpO2 97% BMI 45.09 kg/m? Physical Exam Vitals reviewed. Constitutional: General: She is not in acute distress. Appearance: She is ill-appearing. She is not toxic-appearing. HENT: Head: Normocephalic and atraumatic. Right Ear: Tympanic membrane normal. Left Ear: Tympanic membrane normal. Mouth/Throat: Lips: [place]. Mouth: Mucous membranes are moist. Pharynx: Oropharynx is clear. Eyes: Conjunctiva/sclera: Conjunctivae normal. Cardiovascular: Rate and Rhythm: Normal rate and regular rhythm. Heart sounds: Normal heart sounds. No murmur heard. Pulmonary: Effort: Pulmonary effort is normal. Breath sounds: Normal breath sounds. No wheezing, rhonchi or rales. Lymphadenopathy: Cervical: No cervical adenopathy. Skin: General: Skin is warm and dry. Neurological: Mental Status: S (more content not included)... Normal [facility] COVID AND INFLUENZA A/B AND RSV PCR, ROUTINEon 08-24-2024 SARS-CoV-2 (COVID-19) RNA ESTHER+probe Ql (Unsp spec) SARS-COV-2 (AGENT OF COVID-19) RNA: Not detected INFLUENZA A RNA: Not detected INFLUENZA B RNA: Not detected RESPIRATORY SYNCYTIAL VIRUS (RSV) RNA: Not detected Normal [facility] Comment on above: Performed By: #### C VFLRS ####[facility] LABCLIA [id number] [address] STATES OF [facility] Abdomen/Pelvis without Conto n 08-04-2024 Abdomen/Pelvis without Cont [facility] Imaging Services [address] [place] [id number] Abdomen/Pelvis without Cont MR#: [id number] Acct: [id number] Name: ANTONIA CORONADO Rep #: [id number] : 1975 F 48 From: Alexy narayan MD PCP: Dr. Fransisco Angel MD Status: REG ER Study: Abdomen/Pelvis without Cont Date of Exam: 02/20 Exam# [id number] Ordering Dr: Wai Donnelly DO [id number] STUDY: CT ABDOMEN AND PELVIS WITHOUT CONTRAST REASON FOR EXAM: Female, 48 years old. LT FLANK PAIN, BURNING WITH URINATION, HX-KS, HANS RADIATION DOSAGE (If Supplied By Facility): CTDIvol = ( 23.98 ) mGy, DLP = ( 1312.33 ) mGycm TECHNIQUE: Transaxial images were obtained from the dome of the diaphragm to the symphysis pubis without oral contrast, and without intravenous contrast. Sagittal and coronal images were reconstructed. Individualized dose optimization techniques were used for this CT. COMPARISON: CT of abdomen and pelvis dated November 02, 2019. FINDINGS: The visualized lung bases are unremarkable. The visualized portions of the heart are within normal limits. Normal liver. Redemonstration of small surgical clip at the posterior dome of the right lobe of the liver. There are surgical clips in the gallbladder fossa consistent with a prior cholecystectomy. Normal spleen. Normal pancreas. Normal bilateral adrenal glands. Right kidney: 2 mm calyceal stone in the midpole. No hydronephrosis or hydroureter is present. No radiopaque ureteral stones. Left kidney: 1 mm calyceal stone in the midpole. No hydronephrosis or hydroureter or radiopaque ureteral stones. No visualized perinephric stranding. 1 mm calyceal stone in the lower pole of the left kidney see image 77/141 series 601.. Normal left kidney. Normal visualized stomach. Normal small intestine. Normal colon. The appendix is visualized and appears normal. Normal abdominal aorta. Normal inferior vena cava. Normal retroperitoneum. Normal urinary bladder. Unremarkable uterus and adnexa. Normal abdominal wall. There are diffuse degenerative changes of the visualized lumbar spine. CT/Abdomen/Pelvis without Cont IMPRESSION: 1. Bilateral nonobstructing kidney stones Electronically Signed: Alexy Roper MD at 8:21 EST Reading Location ID and State: [facility] / [place] , Service support , CC: Dr. Wai Donnelly DO; Dr. Fransisco Angel MD Linen Keeper: Signed Normal [facility] Basic Metabolic Profile (BMP )on 08-04-2024 BUN/CRE 16.1 RATIO Normal 10-20 [facility] Comment on above: Performed By: #### L 500.2500, L700.6800, L100.0100 #### [facility] Laboratory [facility] [address] [place], [address] CA,Total 9.1 mg/dL Normal 8.5-10.1 [facility] Comment on above: Performed By: #### L 500.2500, L700.6800, L100.0100 #### [facility] Laboratory [address] [place], [address] Chloride [Moles/Vol] 106 mmol/L Normal 98-107 [facility] Comment on above: Performed By: #### L 500.2500, L700.6800, L100.0100 #### [facility] Laboratory [address] [place], [address] CO2 [Moles/Vol] 28.0 mmol/L Normal 21.0-32.0 [facility] Comment on above: Performed By: #### L 500.2500, L700.6800, L100.0100 #### [facility] Laboratory [address] [place], [address] Creatinine [Mass/Vol] 0.62 mg/dL Normal 0.55-1.02 [facility] Comment on above: Result Comment: The validity of the calculated GFR GFRAA in patients over 70 years has not been determined. Clinical correlation is essential. Performed By: #### L 500.2500, L700.6800, L100.0100 #### [facility] Laboratory [address] [place], [address] ECRCL 158.95 ml/min Normal [facility] Comment on above: Performed By: #### L 500.2500, L700.6800, L100.0100 #### [facility] Laboratory [address] [place], [address] EST GFR - AA 132 mL/min Normal >60 [facility] Comment on above: Result Comment: Afri can [place] GFR Calc Performed By: #### L 500.2500, L700.6800, L100.0100 #### [facility] Laboratory [address] [place], [address] GAP 5 Normal 5-15 [facility] Comment on above: Performed By: #### L 500.2500, L700.6800, L100.0100 #### [facility] Laboratory [address] [place], [address] GFR/1.73 sq M.predicted among non-blacks MDRD (S/P/Bld) [Vol rate/Area] 109 mL/min/{1.73_m2} Normal >60 [facility] Comment on above: Result Comment: Non- GFR Calc Performed By: #### L 500.2500, L700.6800, L100.0100 #### [facility] Laboratory [address] [place], [address] Glucose [Mass/Vol] 104 mg/dL Normal 74-106 [facility] Comment on above: Result Comment: Fast ing Glucose result from 100 to 125 mg/dL suggests IMPAIRED HOMEOSTASIS per A.D.A. criteria. Performed By: #### L 500.2500, L700.6800, L100.0100 #### [facility] Laboratory [address] [place], [address] Potassium [Moles/Vol] 4.4 mmol/L Normal 3.5-5.1 [facility] Comment on above: Result Comment: Mode rate Hemolysis, Result may be falsely increased. Performed By: #### L 500.2500, L700.6800, L100.0100 #### [facility] Laboratory [address] [place], [address] Sodium [Moles/Vol] 139 mmol/L Normal 136-145 [facility] Comment on above: Performed By: #### L 500.2500, L700.6800, L100.0100 #### [facility] Laboratory [address] [place], [address] Urea nitrogen [Mass/Vol] 10 mg/dL Normal 7-18 [facility] Comment on above: Performed By: #### L 500.2500, L700.6800, L100.0100 #### [facility] Laboratory [address] [place], [address] CBC W/Diff, Automatedon 11-0 5-2024 Absolute Lymph 4.03 X10 3/uL Normal 0.83-4.51 [facility] Comment on above: Performed By: #### L 500.2500, L700.6800, L100.0100 #### [facility] Laboratory [address] [place], [address] Absolute Neut 3.5 X10 3/uL Normal 2.0-7.7 [facility] Comment on above: Performed By: #### L 500.2500, L700.6800, L100.0100 #### [facility] Laboratory [address] [place], [address] Basophils/100 WBC (Bld) 0.6 % Normal 0-1 [facility] Comment on above: Performed By: #### L 500.2500, L700.6800, L100.0100 #### [facility] Laboratory [address] [place], [address] Eosinophils/100 WBC (Bld) 1.9 % Normal 0-5 [facility] Comment on above: Performed By: #### L 500.2500, L700.6800, L100.0100 #### [facility] Laboratory [address] [place], [address] Erythrocyte distribution width (RBC) [Ratio] 13.5 % Normal 11.6-14.6 [facility] Comment on above: Performed By: #### L 500.2500, L700.6800, L100.0100 #### [facility] Laboratory [address] [place], [address] Hematocrit (Bld) [Volume fraction] 39.3 % Normal 37-47 [facility] Comment on above: Performed By: #### L 500.2500, L700.6800, L100.0100 #### [facility] Laboratory [address] [place], [address] Hemoglobin (Bld) [Mass/Vol] 13.0 g/dL Normal 12.0-15.0 [facility] Comment on above: Performed By: #### L 500.2500, L700.6800, L100.0100 #### [facility] Laboratory [address] [place], [address] IG% 0.400 Normal 0.0-0.9 [facility] Comment on above: Result Comment: IG% - Immature Granulocytes (promyelocytes, myelocytes and metamyelocytes) > 1% indicates that a LEFT SHIFT is Present. Performed By: #### L 500.2500, L700.6800, L100.0100 #### [facility] Laboratory [address] [place], [address] Lymphocytes/100 WBC (Bld) 48.0 % High 19-41 [facility] Comment on above: Performed By: #### L 500.2500, L700.6800, L100.0100 #### [facility] Laboratory [address] [place], [address] MCH (RBC) [Entitic mass] 29.0 pg Normal 27.0-32.0 [facility] Comment on above: Performed By: #### L 500.2500, L700.6800, L100.0100 #### [facility] Laboratory [address] [place], [address] MCHC (RBC) [Mass/Vol] 33.1 g/dL Normal 32-36 [facility] Comment on above: Performed By: #### L 500.2500, L700.6800, L100.0100 #### [facility] [address] [place], [address] MCV (RBC) [Entitic vol] 87.5 fL Normal 81-99 [facility] Comment on above: Performed By: #### L 500.2500, L700.6800, L100.0100 #### [facility] Laboratory [address] [place], [address] Monocytes/100 WBC (Bld) 7.4 % Normal 0-10 [facility] Comment on above: Performed By: #### L 500.2500, L700.6800, L100.0100 #### [facility] Laboratory [address] [place], [address] Neutrophils/100 WBC (Bld) 41.7 % Low 47-70 [facility] Comment on above: Performed By: #### L 500.2500, L700.6800, L100.0100 #### [facility] Laboratory [address] [place], [address] Nucleated RBC (Bld) [#/Vol] 0 10*3/uL Normal 0-5 [facility] Comment on above: Performed By: #### L 500.2500, L700.6800, L100.0100 #### [facility] Laboratory [address] [place], [address] Platelet mean volume (Bld) [Entitic vol] 8.9 fL Normal 6.2-12.0 [facility] Comment on above: Performed By: #### L 500.2500, L700.6800, L100.0100 #### [facility] Laboratory [address] [place], [address] Platelets (Bld) [#/Vol] 362 10*3/uL Normal 150-450 [facility] Comment on above: Performed By: #### L 500.2500, L700.6800, L100.0100 #### [facility] Laboratory [address] [place], [address] RBC (Bld) [#/Vol] 4.49 10*6/uL Normal 4.2-5.4 [facility] Comment on above: Performed By: #### L 500.2500, L700.6800, L100.0100 #### [facility] Laboratory [address] [place], [address] RDW SD 43.0 fl Normal 35.1-43.9 [facility] Comment on above: Performed By: #### L 500.2500, L700.6800, L100.0100 #### [facility] Laboratory [address] [place], [address] WBC (Bld) [#/Vol] 8.4 10*3/uL Normal 4.4-11.0 [facility] Comment on above: Performed By: #### L 500.2500, L700.6800, L100.0100 #### [facility] [address] [place], [address] Emergency Department Summary on 08-04-2024 Emergency Department Summary [facility] Department [address] [place] [address] Emergency Department Summary 08/04/24 MR#: [id number] Acct: [id number] Name: ANTONIA CORONADO Rep #: [id number] : 1975 48 From: Wai Fitch PCP: Dr. Fransisco Angel MD Status:REG ER Location: ED HPI History of Present Illness Chief Complaint: Flank Pain Informant: patient Narrative Narrative: Worsening left flank pain since yesterday evening. No radicular symptoms. Nausea vomiting x 1. No fevers or chills. States urine frequency however drink more fluids throughout the night. History of kidney stones in the past. Allergies naproxen causing vomiting. Has tolerated Toradol and ibuprofen in the past. Hypertension history. Denies gastric ulcers history denies history of kidney injury. Multiple kidney stones in the past no interventions last time was a year ago. Prior similar symptoms: Yes PFSH PFSH Home Medications ???Medication ???Instructions ???Recorded ???Last Taken ???Type albuterol sulfate 90 mcg/actuation 2 puff inhalation Q4H PRN PRN 09/20/19 Unknown Rx aerosol inhaler Wheezing ##1 lisinopril 10 mg tablet 10 mg PO DAILY 12/25/23 Unknown History Allergy/AdvReac Type Severity Reaction Status Date / Time naproxen (From Naprosyn) AdvReac Vomiting Verified 08/04/24 06:30 Surgical History Hx of foot surgery Hx of tonsillectomy Hx of cholecystectomy Social History Smoking Status: Never smoker ROS ROS ED Constitutional Constitutional ED: Denies chills, fever(s) or sweats Eyes Eyes: Denies change in vision ENT ENT ED: Denies dysphagia or sore throat Cardiovascular Cardiovascular: Denies chest pain, leg edema, palpitations or racing heartbeat Respiratory/Chest Respiratory/Chest: Denies cough, dyspnea or dyspnea on exertion Gastrointestinal Gastrointestinal: Denies abdominal pain, diarrhea, nausea or vomiting Genitourinary Genitourinary ED: Denies dysuria, hematuria or urinary frequency Musculoskeletal Musculoskeletal: Reports back pain; Denies extremity pain or neck pain Integumentary Denies rash or wounds Neurologic Neurologic: Denies headache(s), paresthesias or weakness EXAM Physical Exam Const Vital Signs: 08/04/24 06:29 08/04/24 06:32 Temperature 97.8 F 98.7 F Temperature Source Oral Oral Pulse Rate 85 85 Respiratory Rate 17 16 Blood Pressure 172/77 H 172/77 H Blood Pressure Mean 108 108 Pulse Ox 98 97 Oxygen Delivery Method Room Air Room Air Positive well nourished and well developed Constitutional Narrative: Nontoxic, slightly uncomfortable. General Appearance ED: well developed HEENT Reports moist mucous membranes normocephalic and atraumatic Eyes EOMs intact bilaterally and conjunctivae normal General Eye ED: Yes normal appearance of both eyes Neck no lymphadenopathy and supple General: Negative for tenderness Chest Wall Chest: Negative for tenderness Resp normal respiratory effort and normal air movement Effort and Inspection: symmetric chest movement; Negative for respiratory distress Cardio regular rate, regular rhythm and no murmurs Peripheral Pulses: pulses 2+ throughout GI normal to inspection, nondistended, normoactive bowel sounds and non-tender Palpation: Negative for guarding or rebound tenderness present Back/Spine no CVA tenderness and no thoracic nor lumbar tenderness Back/Spine Narrative: No rash Extremity normal to inspection General Extremety ED: Negative for edema or tenderness General Extremity: Negative for edema Neuro oriented x3 and no sensory deficits noted Sensorium / Orientation: awake and alert Skin no rashes or lesions noted and no wounds MDM MDM MDM Narrative Medical decision making narrative: Interventions / MDM: Differential diagnosis: Renal colic, flank pain, kidney stone Diagnosis considered but do not suspect: N/A My EKG interpretation: N/A Imaging independently reviewed and interpreted by myself: CT abdomen pelvis without contrast: Pending External documents reviewed: N/A Test considered but not ordered:N/A ED course: Patient uncomfortable similar symptoms from kidney stones in the past. She drove her self. Declines any strong pain medicine as she has no ride home. She tolerated Toradol which was ordered. Labs are drawn urine CT abdomen pelvis for further evaluation. 0730: Status post Toradol no more comfortable at this time. 0745: Labs normal urine negative. Awaiting CT scan. Patient signed out to oncoming physician. Re-evaluation: stable Disposition discussed with patient/family/signif icant other: Patient Case discussed with consulting clinician: N/A This note was generated w (more content not included)... Normal [facility] ,Serum,hCG Quali.on 08-04-2024 HCG, SERUM QUAL Negative Normal [facility] Comment on above: Performed By: #### L 500.2500, L700.6800, L100.0100 #### [facility] Laboratory [address] [place], [place], [id number] Urinalysis, Completeon 08-04 BACTERIA 0 SEEN Normal None Seen [facility] Comment on above: Order Comment: CLEAN CATCH Performed By: #### L 400.0001 #### [facility] Laboratory [address] [place], [address] EPI,SQUAMOUS 0 SEEN Normal 5-10 [facility] Comment on above: Order Comment: CLEAN CATCH Performed By: #### L 400.0001 #### [facility] Laboratory [address] [place] [id number] Mucus Ql (Urine sed) 0 SEEN Normal [facility] Comment on above: Order Comment: CLEAN CATCH Performed By: #### L 400.0001 #### [facility] Laboratory [address] [place], [address] RBC 0 SEEN Normal 0-5 [facility] Comment on above: Order Comment: CLEAN CATCH Performed By: #### L 400.0001 #### [facility] Laboratory [address] [place], [address] WBC 0 SEEN Normal 0-5 [facility] Comment on above: Order Comment: CLEAN CATCH Performed By: #### L 400.0001 #### [facility] Laboratory [address] [place], [place], [address] CNOVon 05-01-2024 CNOV Office Visit (UCWSTR ) ANTONIA CORONADO ([id number]) 1975 F Date Time Provider Department 05/01/24 6:15 PM [address]A [facility] During your visit today, we recorded the following information about you: Temperature Pulse Respiration Blood pressure 97.9 degrees 74/minute 18/minute 133/79 Weight 134.4 kg Zoe Raya APRN.CNP 05/01/2024 6:25 PM Signed This note was created using NoteWriter. Subjective Antonia Sarah Coronado is a 48 year old female. 48 year old female with PMH asthma, HTN, anxiety and depression presents for illness. Acute onset yesterday +sore throat +white spot +headache Feels like I swallowed glass Denies eye, ear or nose Denies cough Denies N/V/D Denies fever or chills Used allergy pills yesterday Used Tylenol, without relief. The history is provided by the patient. No record searcher was used. Sore Throat This is a new problem. The current episode started yesterday. The problem has been unchanged. Neither side of throat is experiencing more pain than the other. There has been no fever. The pain is at a severity of 5/10. The pain is moderate. Associated symptoms include swollen glands. Pertinent negatives include no abdominal pain, congestion, coughing, diarrhea, drooling, ear discharge, ear pain, headaches, hoarse voice, plugged ear sensation, neck pain, shortness of breath, stridor, trouble swallowing or vomiting. She has had no exposure to strep or mono. She has tried acetaminophen for the symptoms. The treatment provided no relief. PAST MEDICAL HISTORY 12/26/2015: Anxiety and depression No date: Depression No date: FRACTURE Comment: FOOT 12/14/2022: Hemangioma of liver 08/25/2002: Hydronephrosis Comment: right hydronephrosis per US 02/12/2012: Marital conflict 02/18/2012: Multinodular goiter 05/19/2012: Obesity, unspecified Comment: 05/19/2012Patient is obese. One-hour GCT drawn today. 02/12/2012: Panic 06/13/2012: Supervision of high-risk Comment: 06/13/12 - RA done - v23 - KK 2007: Unspecified essential hypertension 2001: Urinary calculus, unspecified Comment: Renal stones PAST SURGICAL HISTORY 12/31/12: DELIVERY ONLY Comment: , low transverse 2000: CHOLECYSTECTOMY Comment: Cholecystectomy 1999: DILATION AND CURETTAGE DXAND/THER NONOBSTETRIC Comment: Dilation AND curettage 07/2010: EXTENSIVE FOOT SURGERY Comment: Left Foot 12-24-07: PAST SURGICAL HISTORY OF Comment: left plantar fasciotomy 1997: TONSILLECTOMY PRIMARY/SECONDARY AGE 13/> 12/31/12: TUBAL LIGATION, Comment: pptl at time of ALLERGIES Grass Pollen and Naprosyn [Naproxen] MEDICATIONS albuterol HFA (PROAIR HFA) 90 mcg/actuation inhaler Inhale 2 Puffs as instructed every 6 hours as needed for wheezing/shortness of breath. topiramate (TOPAMAX) 25 mg tablet Take 1 tablet by mouth daily at bedtime. lisinopril (ZESTRIL) 10 mg tablet Take 1 tablet by mouth once daily. SUMAtriptan (IMITREX) 50 mg tablet Take one tablet as needed for migraine/headache. Can repeat in 2 hours if ineffective. No more than 2 tablets in 24 hours. multivitamin tablet Take 1 tablet by mouth once daily. loratadine (CLARITIN) 10 mg tablet Take 1 tablet by mouth once daily. ACETAMINOPHEN (TYLENOL ORAL) Take by mouth as needed. FAMILY HISTORY Problem Relation Age of Onset Cancer Mother LIVER, GALL BLADDER Diabetes Mother borderline blood sugars other (glaucoma [Other]) Maternal Grandmother Cancer Maternal Grandmother Seizures Daughter Asthma Son Social History Tobacco Use Smoking status: Former Years: 2 Types: Cigarettes Quit date: 04/28/2012 Years since quittin.0 Passive exposure: Current Smokeless tobacco: Never Tobacco comments: as a teen Vaping Use Vaping Use: Never used Substance Use Topics Alcohol use: Yes Comment: 1-2 mixed drinks per month Drug use: No Review of Systems Constitutional: Negative for activity change, appetite change, chills and diaphoresis. HENT: Positive for sore throat. Negative for congestion, drooling, ear discharge, ear pain, hoarse voice and trouble swallowing. Respiratory: Negative for apnea, cough, shortness of breath and stridor. Cardiovascular: Negative for chest pain, palpitations and leg swelling. Gastrointestinal: Negative for abdominal pain, diarrhea and vomiting. Musculoskeletal: Negative for neck pain. Allergic/Immunologic: Negative for environmental allergies, food allergies and immunocompromised state. Neurological: Negative for headaches. Hematological: Positive for adenopathy. Does not bruise/bleed easily. Psychiatric/Behaviora l: Negative for agitation and behavioral problems. Objective BP 133/79 Pulse 74 Temp 36.6 ?C (97.9 ?F) Resp 18 Wt 134.4 kg (296 lb 4.8 oz) LMP 02/18/2024 (Exact Date) SpO2 98% BMI 47.82 kg/m? Phys (more content not included)... Normal [facility] STREP A MOLECULAR (POC)on Procedural Control Valid [facility] Strep A (POCT) Negative Negative [facility] Absolute lymphocyte countOrd ered By: Michaelle Mock on 12-25-2023 Lymphocytes Auto (Unsp spec) [#/Vol] 3.46 10*3/uL 0.83-4.51 [facility] Automated lymphocyte count a s percentage of total leukocytesOrdered By: [facility] Healthcare[facility] Mock on 12-25-2023 Lymphocytes/100 WBC Auto (Unsp spec) 31.2 % 19-41 [facility] Basophil percentageOrdered B y: Michaelle Florenceaurora on 12-25-2023 Basophils/100 WBC (Bld) 0.4 % 0-1 [facility] Chloride [Moles/Vol] 109 mmol/L 98-107 [facility] Eosinophils/100 WBC (Bld) 0.8 % 0-5 [facility] Glucose [Mass/Vol] 102 mg/dL 74-106 [facility] Comment on above: Fasting Glucose resu lt from 100 to 125 mg/dL suggests IMPAIRED HOMEOSTASIS per A.D.A. criteria. Hemoglobin (Bld) [Mass/Vol] 11.7 g/dL 12.0-15.0 [facility] Monocytes/100 WBC (Bld) 6.6 % 0-10 [facility] Neutrophils (Bld) [#/Vol] 6.7 10*3/uL 2.0-7.7 [facility] Neutrophils/100 WBC (Bld) 60.6 % 47-70 [facility] Potassium [Moles/Vol] 3.4 mmol/L 3.5-5.1 [facility] Sodium [Moles/Vol] 141 mmol/L 136-145 [facility] WBC (Bld) [#/Vol] 11.1 10*3/uL 4.4-11.0 [facility] Determination of erythrocyte mean corpuscular volume (MCV)Ordered By: Michaelle Mock on 12-25-2023 MCV (RBC) [Entitic vol] 88.9 fL 81-99 [facility] Erythrocyte distribution wid th ratioOrdered By: [facility] on 12-25-2023 Erythrocyte distribution width (RBC) [Ratio] 13.2 % 11.6-14.6 [facility] Erythrocyte distribution wid th standard deviationOrdered By: [facility] Mock on 12-25-2023 Erythrocyte distribution width (RBC) [Entitic vol] 42.9 fL 35.1-43.9 [facility] Hematocrit Auto (Bld) [Volum e fraction]Ordered By: Michaelle Mock on 12-25-2023 Hematocrit (Bld) [Volume fraction] 36.0 % 37-47 [facility] Immature granulocytes/100 WB C Auto (Bld)Ordered By: Michaelle Mock on 12-25-2023 Immature granulocytes/100 WBC (Bld) 0.400 % 0.0-0.9 [facility] Comment on above: IG% - Immature Granu locytes (promyelocytes, myelocytes and metamyelocytes) > 1% indicates that a LEFT SHIFT is Present. Laboratory - Chemistry and C hemistry - challengeOrdered By: Michaelle Mock on 12-25-2023 CO2 [Moles/Vol] 28.0 mmol/L 21.0-32.0 [facility] Urea nitrogen/Creatinine [Mass ratio] 11.6 mg/mg 10-20 [facility] Laboratory - Hematology and Cell countsOrdered By: Michaelle Mock on 12-25-2023 MCH (RBC) [Entitic mass] 28.9 pg 27.0-32.0 [facility] MCHC (RBC) [Mass/Vol] 32.5 g/dL 32-36 [facility] Nucleated RBC/100 WBC (Bld) [Ratio] 0 % 0-5 [facility] Platelet mean volume (Bld) [Entitic vol] 8.9 fL 6.2-12.0 [facility] Platelets (Bld) [#/Vol] 352 10*3/uL 150-450 [facility] No Panel InformationOrdered By: Michaelle Mock on 12-25-2023 D-Dimer Quantitative (PE/DVT) 0.48 FEU/ug/m 0.27-0.49 [facility] Comment on above: NORMAL D-Dimer level (<0.50) indicates no DVT or PE. Estimated Creatinine Clearance Calc 146.38 ml/min [facility] Estimated GFR (MDRD) Amer 118 mL/min >60 [facility] Comment on above: GFR Calc Estimated GFR (MDRD) Non-Af Amer 97 mL/min >60 [facility] Comment on above: Non- GFR Calc RBC Auto (Bld) [#/Vol]Ordere d By: Michaelle Mock on 12-25-2023 RBC (Bld) [#/Vol] 4.05 10*6/uL 4.2-5.4 [facility] Serum or plasma calcium shruthi urement (mass/volume)Ordered By: Michaelle Mock on 12-25-2023 Calcium [Mass/Vol] 9.0 mg/dL 8.5-10.1 [facility] Serum or plasma cardiac trop onin I panel by high sensitivity methodOrdered By: [facility] Mock on 12-25-2023 Tropinin I.cardiac panel High sensitivity method 4 pg/mL 3.0-54.0 [facility] Comment on above: Please Note: New Brionna t Units and Gender Specific Reference Ranges. For more information see Policy Stat Procedure [place] High Sensitivity Troponin (TNIH) and attachments. Serum or plasma creatinine m easurement (mass/volume)Ordered By: [facility] Mock on 12-25-2023 Creatinine [Mass/Vol] 0.69 mg/dL 0.55-1.02 [facility] Comment on above: The validity of the calculated GFR & GFRAA in patients over 70 years has not been determined. Clinical correlation is essential. Serum or plasma urea nitroge n measurement (mass/volume)Ordered By: [facility] Mock on 12-25-2023 Urea nitrogen [Mass/Vol] 8 mg/dL 7-18 [facility] Thin prep Papanicolaou smear with manual screeningOrdered By: [facility] on 12-25-2023 Thin prep Papanicolaou smear with manual screening 4 5-15 [facility] XR CHEST 2V FRONTAL/LATon [facility] XR Chest PA and Lateralon IMPRESSION: No acute radiographic abnormality. Linen Keeper: PSCB Transcribe Date/Time: Jun 12 2023 10:50A Dictated by : RENA CAMP MD This examination was interpreted and the report reviewed and electronically signed by: RENA CAMP MD on Jun 12 2023 10:50AM [facility] DIVISION OF RADIOLOGY * * *Final Report* * * DATE OF EXAM: Jun 12 2023 10:49AM WOX 5291 - XR CHEST 2V FRONTAL/LAT / PROCEDURE REASON: Suspected COVID-19 virus infection * * * * Physician Interpretation * * * * EXAMINATION: CHEST RADIOGRAPH (2 VIEW FRONTAL & LATERAL) CLINICAL HISTORY: Suspected COVID-19 virus infection MQ: XC2_6 EXAM DATE/TIME: 06/12/2023 10:49 AM COMPARISON: Chest x-ray on 02/19/2022 RESULT: Lines, tubes, and devices: None. Lungs and pleura: No consolidation. No lung mass. No pleural effusion. No pneumothorax. Cardiomediastinal silhouette: Normal cardiomediastinal silhouette. Bones and soft tissues: The spine shows exaggerated kyphosis and degenerative changes. DIVISION OF RADIOLOGY Provider, Julia [facility] - 06/12/2023 * * *Final Report* * * DATE OF EXAM: Jun 12 2023 10:49AM WOX 5291 - XR CHEST 2V FRONTAL/LAT / PROCEDURE REASON: Suspected COVID-19 virus infection * * * * Physician Interpretation * * * * EXAMINATION: CHEST RADIOGRAPH (2 VIEW FRONTAL & LATERAL) CLINICAL HISTORY: Suspected COVID-19 virus infection MQ: XC2_6 EXAM DATE/TIME: 06/12/2023 10:49 AM COMPARISON: Chest x-ray on 02/19/2022 RESULT: Lines, tubes, and devices: None. Lungs and pleura: No consolidation. No lung mass. No pleural effusion. No pneumothorax. Cardiomediastinal silhouette: Normal cardiomediastinal silhouette. Bones and soft tissues: The spine shows exaggerated kyphosis and degenerative changes. IMPRESSION IMPRESSION: No acute radiographic abnormality. Linen Keeper: JERONIMO Transcribe Date/Time: Jun 12 2023 10:50A Dictated by : RENA CAMP MD This examination was interpreted and the report reviewed and electronically signed by: RENA CAMP MD on Jun 12 2023 10:50AM EST [facility] Radiology Study observation (narrative) Lan [facility] XR Chest PA and LateralOrder ed By: [facility] Provider on 06-12-2023 [facility] XR Knee - right 4 Viewson IMPRESSION: 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 Linen Keeper: [facility] Transcribe Date/Time: Jan 29 2023 10:20A Dictated by : CLAIRE VALENCIA MD This examination was interpreted and the report reviewed and electronically signed by: CLAIRE VALENCIA MD on Jan 29 2023 10:21AM EST DIVISION OF RADIOLOGY * * *Final Report* * * DATE OF EXAM: Jan 25 2023 3:49PM WOX 5203 - XR KNEE 4V AP/PA BOTH+LAT/DASHA RT / PROCEDURE REASON: multiple diagnoses * * * * Physician Interpretation * * * * TITLE: XR KNEE 4V AP/PA BOTH+LAT/DASHA RT CLINICAL INDICATION: Knee pain TECHNIQUE: AP/PA radiographs of both knees and lateral/marginal radiograph of the right knee COMPARISON: None FINDINGS: Right knee: Trace fluid in the right suprapatellar joint space. No acute fracture or dislocation. Mild to moderate patellofemoral compartmental joint space narrowing particularly along the medial patellar facet with miniscule osteophyte formation. Left knee: No acute fracture or dislocation DIVISION OF RADIOLOGY Provider, Julia ramirez [place] - 01/29/2023 * * *Final Report* * * DATE OF EXAM: Jan 25 2023 3:49PM WOX 5203 - XR KNEE 4V AP/PA BOTH+LAT/DSAHA RT / PROCEDURE REASON: multiple diagnoses * * * * Physician Interpretation * * * * TITLE: XR KNEE 4V AP/PA BOTH+LAT/DSAHA RT CLINICAL INDICATION: Knee pain TECHNIQUE: AP/PA radiographs of both knees and lateral/marginal radiograph of the right knee COMPARISON: None FINDINGS: Right knee: Trace fluid in the right suprapatellar joint space. No acute fracture or dislocation. Mild to moderate patellofemoral compartmental joint space narrowing particularly along the medial patellar facet with miniscule osteophyte formation. Left knee: No acute fracture or dislocation IMPRESSION IMPRESSION: 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 Linen Keeper: PSCB Transcribe Date/Time: Jan 29 2023 10:20A Dictated by : CLAIRE VALENCIA MD This examination was interpreted and the report reviewed and electronically signed by: CLAIRE VALENCIA MD on Jan 29 2023 10:21AM EST [facility] XR Knee - right 4 ViewsOrder ed By: Ccf Provider on 01-29-2023 [facility] XR Knee - right 4 Viewson Radiology Study observation (narrative) [facility] MRI LIVER WO/W IVCONon 12-10 Radiology Result ACTIONABLE Abnormal [facility] RUFINO SCREENINGon 11-15-2022 [facility] [facility] Hepatic function 2000 panelo n 11-14-2022 Albumin [Mass/Vol] 4.4 g/dL 3.9 - 4.9 g/dL [facility] ALP [Catalytic activity/Vol] 80 U/L 34 - 123 U/L [facility] ALT [Catalytic activity/Vol] 14 U/L 7 - 38 U/L [facility] AST [Catalytic activity/Vol] 20 U/L 13 - 35 U/L [facility] Bilirubin [Mass/Vol] 0.3 mg/dL 0.2 - 1 .3 mg/dL [facility] Bilirubin.conjugated [Mass/Vol] <0.2 mg/dL [facility] Protein [Mass/Vol] 7.5 g/dL 6.3 - 8.0 g/dL [facility] CNOVon 11-13-2022 CNOV Office Visit (ALEXI ) ANTONIA CORONADO ([id number]) 1975 F Date Time Provider Department 11/13/22 1:45 PM LYNDON VELASQUEZ During your visit today, we recorded the following information about you: Blood pressure Weight Height 141/81 124.7 kg 1.702 m Lyndon Velasquez MD 11/13/2022 2:12 PM Signed [facility] ESTABLISHED PATIENT FOLLOW-UP NOTE PATIENT: Antonia Coronado (46 year old) PCP: Fransisco Angel MD SUMMARY: Right nephrolithiasis. 2-mm, UP on CT-10/2022. Left renal cysts. Small, cortical and parapelvic. ASSESSMENT: 1. Right nephrolithiasis - ICD9: 592.0, ICD10: N20.0 (primary diagnosis) 2. Renal cyst, left - ICD9: 753.10, ICD10: N28.1 3. Hepatic lesion - ICD9: 573.8, ICD10: K76.9 PLAN: #1 Chronic, stable. The right renal stone is small and nonobstructing. I recommend observation and dietary stone prevention. #2 Chronic, stable. The renal cysts are benign. There is no evidence of calyceal diverticulum. No routine imaging surveillance is indicated. #3 New, undiagnosed. I counseled the patient that I do not have expertise in this area. I recommended follow up with Fransisco Angel MD, the patient's primary care provider for further discussion, work up, and management of this problem. FOLLOW UP: Return if symptoms worsen or fail to improve. CHIEF COMPLAINT: Patient presents with: left flank pain HISTORY OF PRESENT ILLNESS: Prior notes were reviewed. The patient completed a course of Keflex for Klebsiella UTI. She is still having intermittent left back pain. No F/C. The patient is otherwise doing well. ALEXIA/AUASS FORMS No question data found. REVIEW OF SYSTEMS: N/a ALLERGIES: ALLERGIES Allergen Reactions Grass Pollen CONGESTION, ITCHY EYES Ivory [Other] UNKNOWN REACTION Naprosyn [Naproxen] Vomiting MEDICATIONS: iv contrast (will be provided with radiology test) CT Urogram WO/W Inject, intravenously, once for 1 dose.No IV access, insert saline lock prior to the beginning of sedation, infusion, injection of imaging exam. Discontinue saline lock post exam. If Pt. has a central line or IVAD, may access for administration according to line specific nursing protocol. Once exam is complete flush line and de-access according to line specific nursing protocol in the CT contrast administration guidelines link. topiramate (TOPAMAX) 25 mg tablet Take 1 tablet by mouth daily at bedtime. SUMAtriptan (IMITREX) 50 mg tablet Take one tablet as needed for migraine/headache. Can repeat in 2 hours if ineffective. No more than 2 tablets in 24 hours. albuterol HFA (PROAIR HFA) 90 mcg/actuation inhaler Inhale 2 Puffs as instructed every 6 hours as needed for wheezing/shortness of breath. loratadine (CLARITIN) 10 mg tablet Take 1 tablet by mouth once daily. IBUPROFEN ORAL Take by mouth. ACETAMINOPHEN (TYLENOL ORAL) Take by mouth as needed. alfuzosin SR (UROXATRAL) 10 mg 24 hr tablet Take 1 tablet by mouth once daily for 14 days. (Patient not taking: Reported on 11/13/2022) PAST HISTORY: PAST MEDICAL HISTORY Diagnosis Date Anxiety and depression 12/26/2015 Depression FRACTURE FOOT Hydronephrosis 08/25/2002 right hydronephrosis per US Marital conflict 02/12/2012 Multinodular goiter 02/18/2012 Obesity, unspecified 05/19/2012 05/19/2012Patient is obese. One-hour GCT drawn today. Panic 02/12/2012 Supervision of high-risk 06/13/2012 06/13/12 - done - v23 - KK Unspecified essential hypertension 2006 Urinary calculus, unspecified 2001 Renal stones PAST SURGICAL HISTORY Procedure Laterality Date DELIVERY ONLY 12/31/12 , low transverse CHOLECYSTECTOMY 2000 Cholecystectomy DILATION AND CURETTAGE DXAND/THER NONOBSTETRIC 1999 Dilation AND curettage EXTENSIVE FOOT SURGERY 07/2010 Left Foot PAST SURGICAL HISTORY OF 12-24-07 left plantar fasciotomy TONSILLECTOMY PRIMARY/SECONDARY AGE 13/> 1997 TUBAL LIGATION, 12/31/12 pptl at time of FAMILY HISTORY Problem Relation Age of Onset Cancer Mother LIVER, GALL BLADDER Diabetes Mother borderline blood sugars other (glaucoma [Other]) Maternal Grandmother Cancer Maternal Grandmother Seizures Daughter Asthma Son Social History Tobacco Use Smoking status: Former Years: 2.00 Types: Cigarettes Quit date: 04/28/2012 Years since quittin.5 Smokeless tobacco: Never Tobacco comments: as a teen Vaping Use Vaping Use: Never used Substance Use Topics Alcohol use: Yes Comment: 1-2 mixed drinks pe (more content not included)... Normal [facility] CT UROGRAM WO/W IVCONon -0 [facility] CNPNon 10-28-2022 CNPN Telephone (AGHOSP) ANTONIA CORONADO ([id number]) 1975 F Date Time Provider Department 10/28/22 LYNDON VELASQUEZ During your visit today, we recorded the following information about you: Lyndon Velasquez MD 10/28/2022 2:21 PM Signed The antibiotic I prescribed on Saturday is appropriate. Please have the patient complete the full 7-day course. Thanks ARABELLA Chan 10/29/2022 9:23 AM Signed Left message on phone for pt to return call. ARABELLA Chan Ma 10/30/2022 11:54 AM Signed Patient informed. Julio C Perez Ma Allergies As of Date: 10/28/2022 Noted Allergy Reaction GRASS POLLEN 07/20/2005 Comments: CONGESTION, ITCHY EYES IVORY [Other] 07/20/2005 Comments: UNKNOWN REACTION NAPROSYN (NAPROXEN) 08/28/2005 11 - Vomiting Date Reviewed: 10/23/2022 Reviewed by: Lyndon Velasquez MD - Fully Assessed Reason for Visit: Patient Update [1234] Prescriptions as of 10/30/2022 - cephALEXin (KEFLEX) 500 mg capsule Take 1 capsule by mouth three times daily for 7 days. - iv contrast (will be provided with radiology test) CT Urogram WO/W Inject, intravenously, once for 1 dose.No IV access, insert saline lock prior to the beginning of sedation, infusion, injection of imaging exam. Discontinue saline lock post exam. If Pt. has a central line or IVAD, may access for administration according to line specific nursing protocol. Once exam is complete flush line and de-access according to line specific nursing protocol in the CT contrast administration guidelines link. - alfuzosin SR (UROXATRAL) 10 mg 24 hr tablet Take 1 tablet by mouth once daily for 14 days. - topiramate (TOPAMAX) 25 mg tablet Take 1 tablet by mouth daily at bedtime. - SUMAtriptan (IMITREX) 50 mg tablet Take one tablet as needed for migraine/headache. Can repeat in 2 hours if ineffective. No more than 2 tablets in 24 hours. - albuterol HFA (PROAIR HFA) 90 mcg/actuation inhaler Inhale 2 Puffs as instructed every 6 hours as needed for wheezing/shortness of breath. - loratadine (CLARITIN) 10 mg tablet Take 1 tablet by mouth once daily. - IBUPROFEN ORAL Take by mouth. - ACETAMINOPHEN (TYLENOL ORAL) Take by mouth as needed. Problem List As Of Date 10/28/2022 Noted Resolved Closed fracture of metatarsal bone(s) [S92.309A]09/28/2005 06/13/2012 PLANTAR fasciitis [M72.2] 05/20/2007 06/13/2012 Achilles bursitis or tendinitis [M76.60] 03/18/2008 06/13/2012 Equinus deformity of foot, acquired [M21.6X9] 03/18/2008 06/13/2012 Sprain of foot, unspecified site [S93.609A] 12/21/2008 02/11/2012 Congenital pes planus [Q66.50] 12/21/2008 06/13/2012 Calcaneal spur [M77.30] 12/21/2008 06/13/2012 Pain in limb [M79.609] 04/05/2009 02/11/2012 Nontraumatic rupture of other tendons of foot a*04/11/2009 06/13/2012 Tibialis tendinitis [M76.829] 11/14/2009 06/13/2012 Seasonal allergies [J30.2] 11/22/2009 03/23/2022 Syncope and collapse [R55] 11/22/2009 07/03/2016 Capsulitis [M77.9] 07/13/2010 06/13/2012 Contusion of unspecified site [T14.8XXA] 12/10/2011 06/13/2012 Panic [F41.0] 02/12/2012 03/23/2022 Marital conflict [Z63.0] 02/12/2012 03/23/2022 Thyroid nodule [E04.1] 02/18/2012 03/23/2022 History of hypertension [Z86.79] 05/19/2012 03/23/2022 Advanced maternal age in [ZRT7336] 05/19/2012 12/15/2021 Patient requested diagnostic testing [Z01.89] 05/19/2012 12/15/2021 Obesity, unspecified [E66.9] 05/19/2012 03/23/2022 History of depression [Z86.59] 05/19/2012 03/23/2022 Quit smoking [Z87.891] 05/19/2012 12/15/2021 History of kidney stones [Z87.442] 05/19/2012 03/23/2022 Supervision of high-risk [O09.90] 06/13/2012 12/15/2021 UTI in [O23.40] 09/12/2012 12/15/2021 Anxiety and depression [F41.9, F32.A] 12/26/2015 Anxiety [F41.9] 12/19/2016 12/15/2021 Moderate episode of recurrent major depressive *12/19/2016 03/23/2022 Trapezius strain [S46.819A] 02/16/2017 12/15/2021 Muscle strain of scapular region [S46.919A] 02/16/2017 12/15/2021 Obesity, Class III, BMI >= 40 [E66.01] 03/23/2022 Goiter, nontoxic, multinodular [E04.2] 03/23/2022 Bronchospasm [J98.01] 03/23/2022 Encounter Status:Closed by LYNDON VELASQUEZ on 10/28/22 [facility] 10-26-2022 CNPN Telephone ([facility]) ANTONIA CORONADO ([id number]) 1975 F Date Time Provider Department 10/26/22 LYNDON VELASQUEZ During your visit today, we recorded the following information about you: Lyndon Velasquez MD 10/26/2022 1:00 PM Signed The urine culture is prelim positive. I would like the patient to start an antibiotic now. We may have to change the antibiotic on Saturday when the culture finalizes. I sent a script for Keflex to her pharmacy. Cathie Garcia Cma 10/26/2022 1:10 PM Signed Lmom for pt to call back to give her the message. Cathie Crespo 10/26/2022 1:18 PM Signed Pt called back and message below given. Pt verbalized understanding of instructions. Ludivina Crespo RN Allergies As of Date: 10/26/2022 Noted Allergy Reaction GRASS POLLEN 07/20/2005 Comments: CONGESTION, ITCHY EYES IVORY [Other] 07/20/2005 Comments: UNKNOWN REACTION NAPROSYN (NAPROXEN) 08/28/2005 11 - Vomiting Date Reviewed: 10/23/2022 Reviewed by: Lyndon Velasquez MD - Fully Assessed Reason for Visit: Orders [681] Patient Update [1234] Results [95] Primary Visit Diagnosis:Acute cystitis without hematuria [N30.00] Order(s):cephALEXin (KEFLEX) 500 mg capsuleTake 1 capsule by mouth three times daily for 7 days.Disp: 21 capsuleRfl: 0 Prescriptions as of 10/26/2022 - cephALEXin (KEFLEX) 500 mg capsule Take 1 capsule by mouth three times daily for 7 days. - iv contrast (will be provided with radiology test) CT Urogram WO/W Inject, intravenously, once for 1 dose.No IV access, insert saline lock prior to the beginning of sedation, infusion, injection of imaging exam. Discontinue saline lock post exam. If Pt. has a central line or IVAD, may access for administration according to line specific nursing protocol. Once exam is complete flush line and de-access according to line specific nursing protocol in the CT contrast administration guidelines link. - alfuzosin SR (UROXATRAL) 10 mg 24 hr tablet Take 1 tablet by mouth once daily for 14 days. - topiramate (TOPAMAX) 25 mg tablet Take 1 tablet by mouth daily at bedtime. - SUMAtriptan (IMITREX) 50 mg tablet Take one tablet as needed for migraine/headache. Can repeat in 2 hours if ineffective. No more than 2 tablets in 24 hours. - albuterol HFA (PROAIR HFA) 90 mcg/actuation inhaler Inhale 2 Puffs as instructed every 6 hours as needed for wheezing/shortness of breath. - loratadine (CLARITIN) 10 mg tablet Take 1 tablet by mouth once daily. - IBUPROFEN ORAL Take by mouth. - ACETAMINOPHEN (TYLENOL ORAL) Take by mouth as needed. Problem List As Of Date 10/26/2022 Noted Resolved Closed fracture of metatarsal bone(s) [S92.309A]09/28/2005 06/13/2012 PLANTAR fasciitis [M72.2] 05/20/2007 06/13/2012 Achilles bursitis or tendinitis [M76.60] 03/18/2008 06/13/2012 Equinus deformity of foot, acquired [M21.6X9] 03/18/2008 06/13/2012 Sprain of foot, unspecified site [S93.609A] 12/21/2008 02/11/2012 Congenital pes planus [Q66.50] 12/21/2008 06/13/2012 Calcaneal spur [M77.30] 12/21/2008 06/13/2012 Pain in limb [M79.609] 04/05/2009 02/11/2012 Nontraumatic rupture of other tendons of foot a*04/11/2009 06/13/2012 Tibialis tendinitis [M76.829] 11/14/2009 06/13/2012 Seasonal allergies [J30.2] 11/22/2009 03/23/2022 Syncope and collapse [R55] 11/22/2009 07/03/2016 Capsulitis [M77.9] 07/13/2010 06/13/2012 Contusion of unspecified site [T14.8XXA] 12/10/2011 06/13/2012 Panic [F41.0] 02/12/2012 03/23/2022 Marital conflict [Z63.0] 02/12/2012 03/23/2022 Thyroid nodule [E04.1] 02/18/2012 03/23/2022 History of hypertension [Z86.79] 05/19/2012 03/23/2022 Advanced maternal age in [OCG7640] 05/19/2012 12/15/2021 Patient requested diagnostic testing [Z01.89] 05/19/2012 12/15/2021 Obesity, unspecified [E66.9] 05/19/2012 03/23/2022 History of depression [Z86.59] 05/19/2012 03/23/2022 Quit smoking [Z87.891] 05/19/2012 12/15/2021 History of kidney stones [Z87.442] 05/19/2012 03/23/2022 Supervision of high-risk [O09.90] 06/13/2012 12/15/2021 UTI in [O23.40] 09/12/2012 12/15/2021 Anxiety and depression [F41.9, F32.A] 12/26/2015 Anxiety [F41.9] 12/19/2016 12/15/2021 Moderate episode of recurrent major depressive *12/19/2016 03/23/2022 Trapezius strain [S46.819A] 02/16/2017 12/15/2021 Muscle strain of scapular region [S46.919A] 02/16/2017 12/15/2021 Obesity, Class III, BMI >= 40 [E66.01] 03/23/2022 Goiter, nontoxic, multinodular [E04.2] 03/23/2022 Bronchospasm [J98.01] 03/23/2022 Prescriptions ordered this encounter Disp Refills Start End CEPHALEXIN 500 MG CAPSULE 21 c* 0 10/26/2022 11/02/2022 Route: ORAL Sig: Take 1 capsule by mouth three times daily for 7 days. Encounter Status:Closed by LYNDON VELASQUEZ on 1/27/23 [facility] Bacteria Ur Culton 3 Bacteria identified Cx Nom (U) ORGANISM ID: 1 10,000 -<50,000 CFU/ml Klebsiella pneumoniae ORGANISM ID: 1 (KLEBSIELLA PNEUMONIAE) ------ ANTIBIOTIC INTERPRETATION TONA STATUS REFERENCE RANGE ------ Ampicillin R 16 F Cefazolin S <=1 F Susceptible 0-16 , Intermediate <0 or >16 , Resistant >16 Ceftriaxone S <=1 F Susceptible <=1 , Intermediate >1 , Resistant >=4 Cefepime S <=1 F Susceptible <=2 , Susceptible-Dose Dependent >2 , Resistant >=16 Ertapenem S <=0.25 F Susceptible <=0.5 , Intermediate >.5 , Resistant >1 Meropenem S <=0.5 F Susceptible <=1 , Intermediate >1 , Resistant >2 Aztreonam S <=2 F Susceptible <=4 , Intermediate >4 , Resistant >=16 Ampicillin/Sulbact S 8 F Piperacillin/Tazobac S 4 F Gentamicin S <=2 F Susceptible <=4 , Intermediate >4 , Resistant >8 Tobramycin S <=2 F Susceptible <=4 , Intermediate >4 , Resistant >8 Trimeth sulfameth S <=0.5 F Ciprofloxacin S <=0.25 F Susceptible <=0.25 , Intermediate >.25 , Resistant >.5 Nitrofurantoin S 32 F Susceptible <=32 , Intermediate >32 , Resistant >64 Abnormal [facility] Comment on above: Performed By: #### 6 30-4 #### [facility] [id number] [address] OF [facility] CNOVon 10-23-2022 CNOV Office Visit (UROLAE ) ANTONIA CORONADO ([id number]) 1975 F Date Time Provider Department 10/23/22 11:00 AM LYNDON VELASQUEZ During your visit today, we recorded the following information about you: Blood pressure Weight Height 144/90 124.7 kg 1.702 m Lyndon Velasquez MD 10/23/2022 11:24 AM Signed [facility] UR[facility] NEW CONSULT HISTORY AND PHYSICAL EXAMINATION PATIENT: Antonia Coronado (46 year old) REFERRING PROVIDER: Angle Nieto PCP: Fransisco Angel MD Consultation requested by Angle Nieto for an opinion regarding Antonia Coronado. My final recommendations will be communicated back to the requesting physician by way of shared Medical record or letter to requesting physician via US mail. SUMMARY: History of kidney stones. Seen by PCP on 10/03/22 for acute intermittent stabbing left lower back pain associate with nausea. Urine cultures showed 10-50K normal urogenital eliazar. R/BUS 10/12/22 showed a punctate right lower pole renal stone without hydronephrosis bilaterally and a 1.8 cm left parapelvic cyst. ASSESSMENT: 1. Right nephrolithiasis - ICD9: 592.0, ICD10: N20.0 (primary diagnosis) 2. Renal cyst, left - ICD9: 753.10, ICD10: N28.1 3. Abnormal urinalysis - ICD9: 791.9, ICD10: R82.90 4. Other hydronephrosis - ICD9: 591, ICD10: N13.39 5. Left flank pain - ICD9: 789.09, ICD10: R10.9 PLAN: Chronic, stable. The diagnosis of small, asymptomatic nephrolithiasis was discussed with the patient. When stones are small and nonobstructing, upfront treatment is usually not indicated. If a stone were to move, as long as it had not grown significantly, it would likely pass spontaneously. Therefore, surveillance is recommended over observation to assess growth and progression. Plan for surveillance imaging. (EUGENIAM) Chronic, unstable. I counseled the patient that renal cysts are fluid-filled sacs that form in the kidneys. I further discussed that renal cysts are fairly common with age and usually do not cause symptoms or harm, which is why they are usually detected incidentally on imaging performed for other reasons. I counseled the patient that most cysts are considered simple, like hers, meaning that they have a thin wall and contain water-like fluid and pose no risk of malignancy. There is a small chance of confusing a calyceal diverticulum for a parapelvic cyst on US. Since she is still having intermittent moderate dull with occasional stabbing left pain, I recommend additional imaging to better characterize the cyst in question. Obtain CT urogram. Order Cr. Follow up with results. (MJM) Acute, complicated due to diagnostic challenges. The urinalysis results were personally reviewed with the patient, and their significance was discussed. I counseled the patient that a positive urine dipstick for blood does not constitute hematuria and that further testing with urine microscopy must be performed to confirm the presence of blood. Based on the positive urine dipstick for blood today, I will send the urine sample for microscopic analysis. I will also send a urine culture to rule out UTI. If 3 or more RBCs are present per high-power field, then I recommend proceeding with a microhematuria work up, including imaging and cystoscopy. We discussed that microscopic hematuria is associated with a small (5%) but significant risk of urologic malignancy. I counseled the patient that cystoscopy is considered a minor minimally invasive surgical procedure performed under local anesthesia that is generally well tolerated but that carries potential surgical risks including, but not limited to, urinary tract infection, bleeding, and pain. Acute, complicated. Obtain CT urogram to rule out urologic source of pain as above (#2). All questions were answered. FOLLOW UP: Return in about 3 weeks (around 11/13/2022) for with CT results.. CHIEF COMPLAINT: Patient presents with: Kidney Stones HISTORY OF PRESENT ILLNESS: I personally reviewed the past medical records received from the referring provider. I personally reviewed the prior radiology images, and my findings were discussed with the patient. She has been having worsening anxiety. AUASS/ALEXIA FORMS No question data found. REVIEW OF SYSTEMS: Constitutional: fevers or chills - denies Cardiovascular: new or worsening chest pain - denies Respiratory: new or worsening shortness of breath - denies Gastrointestinal: constipation - denies Hematologic/Lymphatic : easy bleeding or bruising - denies ALLERGIES: ALLERGIES A (more content not included)... Normal [facility] UA DIP, URINE (POC)on 2022 BILIRUBIN UA (POCT) Negative Negative [facility] CLARITY UA (POCT) [facility] COLOR UA (POCT) Yellow [facility] GLUCOSE UA (POCT) Negative Negative mg/dL [facility] HEMOGLOBIN/BLOOD UA (POCT) Moderate Abnormal Negative [facility] KETONE UA (POCT) Negative Negative mg/dL [facility] LEUKOCYTES UA (POCT) Small Abnormal Negative [facility] NITRITE UA (POCT) Negative Negative [facility] PH UA (POCT) 6.5 4.5 - 8.0 [facility] Protein Ql (U) Negative Negative mg/dL [facility] SPECIFIC GRAVITY UA (POCT) 1.025 1.005 - 1.030 [facility] UROBILINOGEN UA (POCT) 0.2 E.U./dL [facility] E.U./dL [facility] US KIDNEY/BLADDERon 10-12-19 [facility] URINE CULTUREon 10-04-2022 Bacteria identified Cx Nom (U) 10,000 -<50,000 CFU/ml Normal urogenital eliazar [facility] UA DIP, URINE (POC)on 2022 BILIRUBIN UA (POCT) Negative Negative [facility] CLARITY UA (POCT) Slightly Cloudy Cl [facility] COLOR UA (POCT) Yellow [facility] GLUCOSE UA (POCT) Negative Negative mg/dL [facility] HEMOGLOBIN/BLOOD UA (POCT) Negative Negative [facility] KETONE UA (POCT) Negative Negative mg/dL [facility] LEUKOCYTES UA (POCT) Small Abnormal Negative [facility] NITRITE UA (POCT) Negative Negative [facility] PH UA (POCT) 7.0 4.5 - 8.0 [facility] Protein Ql (U) Negative Negative mg/dL [facility] SPECIFIC GRAVITY UA (POCT) 1.020 1.005 - 1.030 [facility] UROBILINOGEN UA (POCT) 0.2 E.U./dL [facility] E.U./dL [facility] STREP A MOLECULAR (POC)on Procedural Control Valid [facility] Strep A (POCT) Negative Negative [facility] C-REACTIVE PROTEIN (CRP)on 0 06-13-2022 CRP [Mass/Vol] 0.6 mg/dL <0.9 mg/dL [facility] Erythrocyte sedimentation ra cookie 06-01-2022 ESR (Bld) [Velocity] 18 mm/h 0-30 [facility] Work Phone: Serum or plasma C reactive p rotein measurement (mass/volume)on 06-01-2022 CRP [Mass/Vol] 19.90 mg/L 0.0-3.0 [facility] Work Phone: Comment on above: C-Reactive Protein ( CRP) provides useful information for thediagnosis, therapy and monitoring of inflammatory processesand associated diseases. For the evaluation of Relative Riskfor Cardiovascular Disease, a High Sensitivity CRP (HSCRP)should be ordered. Basic metabolic 2000 panelon 05-22-2022 Anion gap [Moles/Vol] 13 mmol/L 9 - 18 mmol/L [facility] Calcium [Mass/Vol] 9.5 mg/dL 8.5 - 10. 2 mg/dL [facility] Chloride [Moles/Vol] 104 mmol/L 97 - 10 5 mmol/L [facility] CO2 [Moles/Vol] 24 mmol/L 22 - 30 mmol/L [facility] Creatinine [Mass/Vol] 0.66 mg/dL 0.58 - 0.96 mg/dL [facility] Estimated Glomerular Filtration Rate 110 mL/min/1.73m >=60 mL/min/1.73m [facility] Glucose [Mass/Vol] 100 mg/dL High 74 - 99 mg/dL [facility] Potassium [Moles/Vol] 4.1 mmol/L 3.7 - 5.1 mmol/L [facility] Sodium [Moles/Vol] 141 mmol/L 136 - 144 mmol/L [facility] Urea nitrogen [Mass/Vol] 8 mg/dL 7 - 21 mg/dL [facility] CBC W Auto Differential pane l (Bld)on 05-22-2022 Abs Immature Gran 0.03 k/uL <0.10 k/uL [facility] Basophils (Bld) [#/Vol] 0.04 10*3/uL <0.11 k/uL [facility] Basophils/100 WBC (Bld) 0.4 % [facility] Differential cell count method Nom (Bld) Auto [facility] Eosinophils (Bld) [#/Vol] 0.11 10*3/uL <0.46 k/uL [facility] Eosinophils/100 WBC (Bld) 1.0 % [facility] Erythrocyte distribution width (RBC) [Ratio] 13.2 % 11.5 - 15.0 % [facility] Hematocrit (Bld) [Volume fraction] 39.0 % 36.0 - 46.0 % [facility] Hemoglobin (Bld) [Mass/Vol] 12.9 g/dL 11.5 - 15.5 g/dL [facility] Immature Gran % 0.3 % [facility] Lymphocytes (Bld) [#/Vol] 4.11 10*3/uL High 1.00 - 4.00 k/uL [facility] Lymphocytes/100 WBC (Bld) 36.9 % [facility] MCH (RBC) [Entitic mass] 29.1 pg 26.0 - 34.0 pg [facility] MCHC (RBC) [Mass/Vol] 33.1 g/dL 30.5 - 36.0 g/dL [facility] MCV (RBC) [Entitic vol] 87.8 fL 80.0 - 100.0 fL [facility] Monocytes (Bld) [#/Vol] 0.78 10*3/uL <0.87 k/uL [facility] Monocytes/100 WBC (Bld) 7.0 % [facility] Neutrophils (Bld) [#/Vol] 6.07 10*3/uL 1.45 - 7.50 k/uL [facility] Neutrophils/100 WBC (Bld) 54.4 % [facility] Nucleated RBC (Bld) [#/Vol] <0.01 k/uL [facility] Nucleated RBC/100 WBC (Bld) [Ratio] 0.0 /100 WBC [facility] Platelet mean volume (Bld) [Entitic vol] 8.8 fL Low 9.0 - 12.7 fL [facility] Platelets (Bld) [#/Vol] 388 10*3/uL 150 - 400 k/uL [facility] RBC (Bld) [#/Vol] 4.44 10*6/uL 3.90 - 5.2 0 m/uL [facility] WBC (Bld) [#/Vol] 11.14 10*3/uL High 3.70 - 11 .00 k/uL [facility] CBC panel Auto (Bld)on 03-24 Erythrocyte distribution width (RBC) [Ratio] 13.1 % 11.5 - 15.0 % [facility] Hematocrit (Bld) [Volume fraction] 40.3 % 36.0 - 46.0 % [facility] Hemoglobin (Bld) [Mass/Vol] 12.9 g/dL 11.5 - 15.5 g/dL [facility] MCH (RBC) [Entitic mass] 28.9 pg 26.0 - 34.0 pg [facility] MCHC (RBC) [Mass/Vol] 32.0 g/dL 30.5 - 36.0 g/dL [facility] MCV (RBC) [Entitic vol] 90.2 fL 80.0 - 100.0 fL [facility] Nucleated RBC (Bld) [#/Vol] 10*3/uL <0.01 k/uL [facility] Platelet mean volume (Bld) [Entitic vol] 8.9 fL Low 9.0 - 12.7 fL [facility] Platelets (Bld) [#/Vol] 414 10*3/uL High 150 - 400 k/uL [facility] RBC (Bld) [#/Vol] 4.47 10*6/uL 3.90 - 5.2 0 m/uL [facility] WBC (Bld) [#/Vol] 9.14 10*3/uL 3.70 - 11. 00 k/uL [facility] Comprehensive metabolic 2000 panelon 03-24-2022 Albumin [Mass/Vol] 4.4 g/dL 3.9 - 4.9 g/dL [facility] ALP [Catalytic activity/Vol] 75 U/L 34 - 123 U/L [facility] ALT [Catalytic activity/Vol] 13 U/L 7 - 38 U/L [facility] Anion gap [Moles/Vol] 11 mmol/L 9 - 18 mmol/L [facility] AST [Catalytic activity/Vol] 18 U/L 13 - 35 U/L [facility] Bilirubin [Mass/Vol] 0.4 mg/dL 0.2 - 1 .3 mg/dL [facility] Calcium [Mass/Vol] 9.6 mg/dL 8.5 - 10. 2 mg/dL [facility] Chloride [Moles/Vol] 104 mmol/L 97 - 10 5 mmol/L [facility] CO2 [Moles/Vol] 23 mmol/L 22 - 30 mmol/L [facility] Creatinine [Mass/Vol] 0.76 mg/dL 0.58 - 0.96 mg/dL [facility] Estimated Glomerular Filtration Rate 99 mL/min/1.73m >=60 mL/min/1.73m [facility] Glucose [Mass/Vol] 91 mg/dL 74 - 99 mg/dL [facility] Potassium [Moles/Vol] 4.4 mmol/L 3.7 - 5.1 mmol/L [facility] Protein [Mass/Vol] 7.4 g/dL 6.3 - 8.0 g/dL [facility] Sodium [Moles/Vol] 138 mmol/L 136 - 144 mmol/L [facility] Urea nitrogen [Mass/Vol] 9 mg/dL 7 - 21 mg/dL [facility] Lipid 1996 panelon Cholesterol [Mass/Vol] 129 mg/dL <200 mg/dL [facility] Cholesterol in HDL [Mass/Vol] 42 mg/dL >39 mg/dL [facility] Cholesterol in LDL [Mass/Vol] 68 mg/dL <100 mg/dL [facility] Cholesterol in LDL/Cholesterol in HDL [Mass ratio] 1.62 {ratio} <2.54 [facility] Cholesterol in VLDL [Mass/Vol] 19 mg/dL <30 mg/dL [facility] Cholesterol non HDL [Mass/Vol] 87 mg/dL <130 mg/dL [facility] Cholesterol.total/Hans sterol in HDL [Mass ratio] 3.07 {ratio} <5.10 [facility] Fasting Time 12 hrs [facility] Triglyceride [Mass/Vol] 93 mg/dL <150 mg/dL [facility] T4 FREE/FREE THYROXon 2021 Free T4 [Mass/Vol] 1.3 ng/dL 0.9 - 1.7 ng/dL [facility] TSH BLDon 03-24-2022 TSH Qn 1.270 m[IU]/L 0.270 - 4.200 mIU/L [facility] XR CHEST 2V FRONTAL/LATon [facility] XR Chest PA and Lateralon IMPRESSION: No acute radiographic abnormality. Linen Keeper: PSCB Transcribe Date/Time: Feb 19 2022 2:47P Dictated by : RENA CAMP MD This examination was interpreted and the report reviewed and electronically signed by: RENA CAMP MD on Feb 19 2022 2:48PM EST [email or web address] E_DIVISION OF RADIOLOGY * * *Final Report* * * DATE OF EXAM: Feb 19 2022 2:43PM WOX [id number] - XR CHEST 2V FRONTAL/LAT / PROCEDURE REASON: Bronchospasm * * * * Physician Interpretation * * * * EXAMINATION: CHEST RADIOGRAPH (2 VIEW FRONTAL & LATERAL) CLINICAL HISTORY: Bronchospasm MQ: XC2_6 EXAM DATE/TIME: 02/19/2022 2:43 PM COMPARISON: Chest x-ray on 11/18/2019. RESULT: Lines, tubes, and devices: None. Lungs and pleura: Slightly small lung volume. No consolidation. No lung mass. No pleural effusion. No pneumothorax. Cardiomediastinal silhouette: Stable cardiac silhouette and mediastinal contour. Bones and soft tissues: The spine shows exaggerated kyphosis and degenerative changes. [email or web address] E_DIVISION OF RADIOLOGY Provider, [facility] - 02/19/2022 * * *Final Report* * * DATE OF EXAM: Feb 19 2022 2:43PM WOX [id number] - XR CHEST 2V FRONTAL/LAT / PROCEDURE REASON: Bronchospasm * * * * Physician Interpretation * * * * EXAMINATION: CHEST RADIOGRAPH (2 VIEW FRONTAL & LATERAL) CLINICAL HISTORY: Bronchospasm MQ: XC2_6 EXAM DATE/TIME: 02/19/2022 2:43 PM COMPARISON: Chest x-ray on 11/18/2019. RESULT: Lines, tubes, and devices: None. Lungs and pleura: Slightly small lung volume. No consolidation. No lung mass. No pleural effusion. No pneumothorax. Cardiomediastinal silhouette: Stable cardiac silhouette and mediastinal contour. Bones and soft tissues: The spine shows exaggerated kyphosis and degenerative changes. IMPRESSION IMPRESSION: No acute radiographic abnormality. Linen Keeper: PSCB Transcribe Date/Time: Feb 19 2022 2:47P Dictated by : RENA CAMP MD This examination was interpreted and the report reviewed and electronically signed by: RENA CAMP MD on Feb 19 2022 2:48PM EST [facility] Radiology Study observation (narrative) Lan Banerjee XR Chest PA and LateralOrder ed By: [facility] Provider on 02-19-2022 [facility] Vital Signs Date Time Vital Sign Value Performing Clinician Leidy acevedo 03-05-2025 15:48-0400 Body height 167.6 cm Juana Cruz SENIOR UI UX DEVELOPER.METHODS ANALYST Work Phone: [facility] 03-05-2025 15:48-0400 Body mass index (BMI) [Ratio] 47.78 kg/m2 Juana Anthony SENIOR UI UX DEVELOPER.METHODS ANALYST Work Phone: [facility] 03-05-2025 15:48-0400 Body weight 134.26 kg Juana Follansbee SENIOR UI UX DEVELOPER.METHODS ANALYST Work Phone: [facility] 03-05-2025 15:48-0400 Diastolic blood pressure 82 mm[Hg] Juana Follansbee SENIOR UI UX DEVELOPER.METHODS ANALYST Work Phone: [facility] 03-05-2025 15:48-0400 Systolic blood pressure 124 mm[Hg] Juana Follansbee SENIOR UI UX DEVELOPER.METHODS ANALYST Work Phone: [facility] 02-23-2025 14:56-0400 Diastolic blood pressure 84 mm[Hg] Barbara Sonny SENIOR UI UX DEVELOPER.METHODS ANALYST Work Phone: [facility] 02-23-2025 14:56-0400 Systolic blood pressure 122 mm[Hg] Barbara Sonny SENIOR UI UX DEVELOPER.METHODS ANALYST Work Phone: [facility] 02-23-2025 14:42-0400 Body mass index (BMI) [Ratio] 47.13 kg/m2 Barbara Sonny SENIOR UI UX DEVELOPER.METHODS ANALYST Work Phone: [facility] 02-23-2025 14:42-0400 Body weight 136.5 kg Barbara Sonny SENIOR UI UX DEVELOPER.METHODS ANALYST Work Phone: [facility] 02-23-2025 14:42-0400 Heart rate 94 /min Barbara WangSonny SENIOR UI UX DEVELOPER.METHODS ANALYST Work Phone: [facility] 02-23-2025 14:42-0400 Respiratory rate 16 /min Barbara WangSonny SENIOR UI UX DEVELOPER.METHODS ANALYST Work Phone: [facility] 02-23-2025 14:42-0400 SaO2% (BldA) [Mass fraction] 96 % Barbara WangSonny SENIOR UI UX DEVELOPER.METHODS ANALYST Work Phone: [facility] 01-25-2025 13:24-0400 Diastolic blood pressure 94 mm[Hg] Dr. Fransisco Angel MD Work Phone: 7(612)834-856535 [place] [address] 01-25-2025 13:24-0400 Heart rate 87 /min Dr. Fransisco Angel MD Work Phone: 2(698)580-618121 [place] [address] 01-25-2025 13:24-0400 Respiratory rate 16 /min Dr. Fransisco Angel MD Work Phone: 9(253)567-934280 [place] [address] 01-25-2025 13:24-0400 SaO2% (BldA) [Mass fraction] 99 % Dr. Fransisco Angel MD Work Phone: 6(884)293-948480 [place] [address] 01-25-2025 13:24-0400 Systolic blood pressure 130 mm[Hg] Dr. Fransisco Angel MD Work Phone: 3(398)555-918080 [place] [address] 01-25-2025 12:24-0400 Body height 170.[address] Fransisco Angel MD Work Phone: 3(004)778-737680 [place] [address] 01-25-2025 12:24-0400 Body mass index (BMI) [Ratio] 47.7 kg/m2 Dr. Fransisco Angel MD Work Phone: 5(043)366-434780 [place] [address] 01-25-2025 12:24-0400 Body temperature 97.8 [degF] Dr. Fransisco Angel MD Work Phone: 0(345)891-677721 [place] [address] 01-25-2025 12:24-0400 Body weight 138.[address] Fransisco Angel MD Work Phone: 1(231)168-948521 [place] [address] 01-01-2025 07:51-0400 Body mass index (BMI) [Ratio] 46.96 kg/m2 Barbara Coronado APRN.METHODS ANALYST Work Phone: [facility] 01-01-2025 07:51-0400 Body weight 136 kg Barbara Coronado SENIOR UI UX DEVELOPER.METHODS ANALYST Work Phone: [facility] 01-01-2025 07:51-0400 Diastolic blood pressure 78 mm[Hg] Barbara Coronado APRN.METHODS ANALYST Work Phone: [facility] 01-01-2025 07:51-0400 Heart rate 84 /min Barbara Sonny SENIOR UI UX DEVELOPER.METHODS ANALYST Work Phone: [facility] 01-01-2025 07:51-0400 Respiratory rate 12 /min Barbara ColbertSonny SENIOR UI UX DEVELOPER.METHODS ANALYST Work Phone: [facility] 01-01-2025 07:51-0400 SaO2% (BldA) [Mass fraction] 98 % Barbara ColbertSonny SENIOR UI UX DEVELOPER.METHODS ANALYST Work Phone: [facility] 01-01-2025 07:51-0400 Systolic blood pressure 122 mm[Hg] Barbara Coronado SENIOR UI UX DEVELOPER.METHODS ANALYST Work Phone: 2(397)665-234899 [place] [address] 10-01-2024 10:20-0500 Body temperature 97.9 [degF] Dr. Fransisco Angel MD Work Phone: 7(571)061-650080 [place] [address] 10-01-2024 10:20-0500 Diastolic blood pressure 77 mm[Hg] Dr. Fransisco Angel MD Work Phone: 7(399)993-890280 [place] [address] 10-01-2024 10:20-0500 Heart rate 79 /min Dr. Fransisco Angel MD Work Phone: 2(630)289-175921 [place] [address] 10-01-2024 10:20-0500 Respiratory rate 16 /min Dr. Fransisco Angel MD Work Phone: 7(972)943-017080 [place] [address] 10-01-2024 10:20-0500 SaO2% (BldA) [Mass fraction] 99 % Dr. Fransisco Angel MD Work Phone: 0(957)994-390321 [place] [address] 10-01-2024 10:20-0500 Systolic blood pressure 146 mm[Hg] Dr. Fransisco Angel MD Work Phone: 0(937)152-851180 [place] [address] 10-01-2024 08:57-0500 Body mass index (BMI) [Ratio] 45.9 kg/m2 Dr. Fransisco Angel MD Work Phone: 8(640)301-457021 [place] [address] 10-01-2024 08:57-0500 Body weight 132.[address] Fransisco Angel MD Work Phone: [facility] 09-07-2024 15:40-0500 Body mass index (BMI) [Ratio] 45.54 kg/m2 Zoe Raya SENIOR UI UX DEVELOPER.METHODS ANALYST Work Phone: [facility] 09-07-2024 15:40-0500 Body temperature 98.49 [degF] Zoe Raya SENIOR UI UX DEVELOPER.METHODS ANALYST Work Phone: [facility] 09-07-2024 15:40-0500 Body weight 131.9 kg Zoe Raya SENIOR UI UX DEVELOPER.METHODS ANALYST Work Phone: [facility] 09-07-2024 15:40-0500 Diastolic blood pressure 70 mm[Hg] Zoe Raya SENIOR UI UX DEVELOPER.METHODS ANALYST Work Phone: [facility] 09-07-2024 15:40-0500 Heart rate 73 /min Zoe Raya SENIOR UI UX DEVELOPER.METHODS ANALYST Work Phone: [facility] 09-07-2024 15:40-0500 Respiratory rate 20 /min Zoe Raya SENIOR UI UX DEVELOPER.METHODS ANALYST Work Phone: [facility] 09-07-2024 15:40-0500 SaO2% (BldA) [Mass fraction] 99 % Zoe Raya SENIOR UI UX DEVELOPER.METHODS ANALYST Work Phone: [facility] 09-07-2024 15:40-0500 Systolic blood pressure 120 mm[Hg] Zoe Raya SENIOR UI UX DEVELOPER.METHODS ANALYST Work Phone: [facility] 08-24-2024 14:27-0500 Body height 170.2 cm Barbara Coronado SENIOR UI UX DEVELOPER.METHODS ANALYST Work Phone: [facility] 08-24-2024 14:27-0500 Body mass index (BMI) [Ratio] 45.09 kg/m2 Barbara Sonny SENIOR UI UX DEVELOPER.METHODS ANALYST Work Phone: [facility] 08-24-2024 14:27-0500 Body temperature 98.6 [degF] Barbara WangSonny SENIOR UI UX DEVELOPER.METHODS ANALYST Work Phone: [facility] 08-24-2024 14:27-0500 Body weight 130.6 kg Barbara Sonny SENIOR UI UX DEVELOPER.METHODS ANALYST Work Phone: [facility] 08-24-2024 14:27-0500 Diastolic blood pressure 78 mm[Hg] Barbara Sonny SENIOR UI UX DEVELOPER.METHODS ANALYST Work Phone: [facility] 08-24-2024 14:27-0500 Heart rate 91 /min Barbara Sonny SENIOR UI UX DEVELOPER.METHODS ANALYST Work Phone: [facility] 08-24-2024 14:27-0500 SaO2% (BldA) [Mass fraction] 97 % [facility] UI UX DEVELOPER.METHODS ANALYST Work Phone: [facility] 08-24-2024 14:27-0500 Systolic blood pressure 112 mm[Hg] Barbara Sonny SENIOR UI UX DEVELOPER.METHODS ANALYST Work Phone: [facility] 05-01-2024 18:09-0400 Body mass index (BMI) [Ratio] 47.82 kg/m2 Zoe Raya SENIOR UI UX DEVELOPER.METHODS ANALYST Work Phone: [facility] 05-01-2024 18:09-0400 Body temperature 97.9 [degF] Zoe Raya SENIOR UI UX DEVELOPER.METHODS ANALYST Work Phone: [facility] 05-01-2024 18:09-0400 Body weight 134.4 kg Zoe Raya SENIOR UI UX DEVELOPER.METHODS ANALYST Work Phone: [facility] 05-01-2024 18:09-0400 Diastolic blood pressure 79 mm[Hg] Zoe Raya SENIOR UI UX DEVELOPER.METHODS ANALYST Work Phone: [facility] 05-01-2024 18:09-0400 Heart rate 74 /min Zoe Raya SENIOR UI UX DEVELOPER.METHODS ANALYST Work Phone: [facility] 05-01-2024 18:09-0400 Respiratory rate 18 /min Zoe Raya SENIOR UI UX DEVELOPER.METHODS ANALYST Work Phone: [facility] 05-01-2024 18:09-0400 SaO2% (BldA) [Mass fraction] 98 % Zoe Raya SENIOR UI UX DEVELOPER.METHODS ANALYST Work Phone: [facility] 05-01-2024 18:09-0400 Systolic blood pressure 133 mm[Hg] Zoe Raya SENIOR UI UX DEVELOPER.METHODS ANALYST Work Phone: [facility] 03-03-2024 12:56-0400 Body height 167.6 cm Juana Anthony SENIOR UI UX DEVELOPER.METHODS ANALYST Work Phone: [facility] 03-03-2024 12:56-0400 Body mass index (BMI) [Ratio] 48.1 kg/m2 Juana Follansbee SENIOR UI UX DEVELOPER.METHODS ANALYST Work Phone: [facility] 03-03-2024 12:56-0400 Body weight 135.17 kg Juana Anthony SENIOR UI UX DEVELOPER.METHODS ANALYST Work Phone: [facility] 03-03-2024 12:56-0400 Diastolic blood pressure 72 mm[Hg] Juana Follansbee SENIOR UI UX DEVELOPER.METHODS ANALYST Work Phone: [facility] 03-03-2024 12:56-0400 Systolic blood pressure 118 mm[Hg] Juana Follansbee SENIOR UI UX DEVELOPER.METHODS ANALYST Work Phone: [facility] 02-19-2024 15:17-0400 Body height 167.6 cm Barbara Sonny SENIOR UI UX DEVELOPER.METHODS ANALYST Work Phone: [facility] 02-19-2024 15:17-0400 Body mass index (BMI) [Ratio] 48.74 kg/m2 Barbara Sonny SENIOR UI UX DEVELOPER.METHODS ANALYST Work Phone: [facility] 02-19-2024 15:17-0400 Body weight 136.99 kg Barbara Sonny SENIOR UI UX DEVELOPER.METHODS ANALYST Work Phone: [facility] 02-19-2024 15:17-0400 Diastolic blood pressure 76 mm[Hg] Barbara Sonny SENIOR UI UX DEVELOPER.METHODS ANALYST Work Phone: [facility] 02-19-2024 15:17-0400 Heart rate 87 /min Barbara Sonny SENIOR UI UX DEVELOPER.METHODS ANALYST Work Phone: [facility] 02-19-2024 15:17-0400 Respiratory rate 14 /min Barbara ColbertSonny SENIOR UI UX DEVELOPER.METHODS ANALYST Work Phone: [facility] 02-19-2024 15:17-0400 SaO2% (BldA) [Mass fraction] 97 % Barbara Sonny SENIOR UI UX DEVELOPER.METHODS ANALYST Work Phone: [facility] 02-19-2024 15:17-0400 Systolic blood pressure 130 mm[Hg] Barbara Sonny SENIOR UI UX DEVELOPER.METHODS ANALYST Work Phone: [facility] 12-25-2023 13:35-0400 Body temperature 97.2 [degF] [facility] 12-25-2023 13:35-0400 Diastolic blood pressure 75 mm[Hg] [facility] 12-25-2023 13:35-0400 Heart rate 78 /min [facility] 12-25-2023 13:35-0400 Respiratory rate 18 /min [facility] 12-25-2023 13:35-0400 SaO2% (BldA) [Mass fraction] 98 % [facility] 12-25-2023 13:35-0400 Systolic blood pressure 149 mm[Hg] [facility] 12-25-2023 11:42-0400 Body height 170.18 cm [facility] 12-25-2023 11:42-0400 Body mass index (BMI) [Ratio] 47.5 kg/m2 [facility] 12-25-2023 11:42-0400 Body weight 137.58 kg [facility] 11-20-2023 15:00-0500 Body weight 136.22 kg Barbara Sonny SENIOR UI UX DEVELOPER.METHODS ANALYST Work Phone: [facility] 11-20-2023 15:00-0500 Diastolic blood pressure 88 mm[Hg] Barbara Sonny SENIOR UI UX DEVELOPER.METHODS ANALYST Work Phone: [facility] 11-20-2023 15:00-0500 Heart rate 101 /min Barbara WangSonny SENIOR UI UX DEVELOPER.METHODS ANALYST Work Phone: [facility] 02-21-2024 15:00-0500 Respiratory rate 16 /min Barbara Sonny SENIOR UI UX DEVELOPER.METHODS ANALYST Work Phone: [facility] 11-20-2023 15:00-0500 SaO2% (BldA) [Mass fraction] 98 % Barbara Sonny SENIOR UI UX DEVELOPER.METHODS ANALYST Work Phone: [facility] 11-20-2023 15:00-0500 Systolic blood pressure 126 mm[Hg] Barbara Sonny SENIOR UI UX DEVELOPER.METHODS ANALYST Work Phone: [facility] 06-12-2023 10:02-0400 Body temperature 97.3 [degF] Haydee Athy PA-C Work Phone: [facility] 06-12-2023 10:02-0400 Body weight 135.81 kg Haydee Athy PA-C Work Phone: [facility] 06-12-2023 10:02-0400 Diastolic blood pressure 83 mm[Hg] Haydee Athy PA-C Work Phone: [facility] 06-12-2023 10:02-0400 Heart rate 77 /min Haydee Athy PA-C Work Phone: [facility] 06-12-2023 10:02-0400 Respiratory rate 20 /min Haydee Athy PA-C Work Phone: [facility] 06-12-2023 10:02-0400 SaO2% (BldA) [Mass fraction] 99 % Haydee Athy PA-C Work Phone: [facility] 06-12-2023 10:02-0400 Systolic blood pressure 145 mm[Hg] Haydee Athy PA-C Work Phone: [facility] 05-15-2023 16:00-0400 Body weight 134.26 kg Barbara Older SENIOR UI UX DEVELOPER.METHODS ANALYST Work Phone: [facility] 05-15-2023 16:00-0400 Diastolic blood pressure 90 mm[Hg] Barbara Older SENIOR UI UX DEVELOPER.METHODS ANALYST Work Phone: [facility] 05-15-2023 16:00-0400 Heart rate 90 /min Barbara Older SENIOR UI UX DEVELOPER.METHODS ANALYST Work Phone: [facility] 05-15-2023 16:00-0400 Respiratory rate 14 /min Barbara Older SENIOR UI UX DEVELOPER.METHODS ANALYST Work Phone: [facility] 05-15-2023 16:00-0400 Systolic blood pressure 136 mm[Hg] Barbara Older SENIOR UI UX DEVELOPER.METHODS ANALYST Work Phone: [facility] 02-01-2023 09:03-0400 Body weight 130.64 kg Angle Reagan SENIOR UI UX DEVELOPER.METHODS ANALYST Work Phone: [facility] 02-01-2023 09:03-0400 Diastolic blood pressure 84 mm[Hg] Angle Reagan SENIOR UI UX DEVELOPER.METHODS ANALYST Work Phone: [facility] 02-01-2023 09:03-0400 Heart rate 90 /min Angle Reagan SENIOR UI UX DEVELOPER.METHODS ANALYST Work Phone: [facility] 02-01-2023 09:03-0400 SaO2% (BldA) [Mass fraction] 98 % Angle Reagan SENIOR UI UX DEVELOPER.METHODS ANALYST Work Phone: [facility] 02-01-2023 09:03-0400 Systolic blood pressure 124 mm[Hg] Angle Reagan SENIOR UI UX DEVELOPER.METHODS ANALYST Work Phone: [facility] 01-25-2023 14:46-0400 Body weight 130.64 kg Angle Reagan SENIOR UI UX DEVELOPER.METHODS ANALYST Work Phone: [facility] 01-25-2023 14:46-0400 Diastolic blood pressure 80 mm[Hg] Angle Reagan SENIOR UI UX DEVELOPER.METHODS ANALYST Work Phone: [facility] 01-25-2023 14:46-0400 Heart rate 106 /min Angle Reagan SENIOR UI UX DEVELOPER.METHODS ANALYST Work Phone: [facility] 01-25-2023 14:46-0400 SaO2% (BldA) [Mass fraction] 97 % Angle Reagan SENIOR UI UX DEVELOPER.METHODS ANALYST Work Phone: [facility] 01-25-2023 14:46-0400 Systolic blood pressure 120 mm[Hg] Angle Reagan SENIOR UI UX DEVELOPER.METHODS ANALYST Work Phone: [facility] 11-14-2022 11:17-0500 Diastolic blood pressure 82 mm[Hg] Fransisco Angel MD Work Phone: [facility] 11-14-2022 11:17-0500 Heart rate 99 /min Fransisco Angel MD Work Phone: [facility] 11-14-2022 11:17-0500 Systolic blood pressure 114 mm[Hg] Fransisco Angel MD Work Phone: [facility] 11-14-2022 11:12-0500 Body temperature 97.5 [degF] Fransisco Angel MD Work Phone: [facility] 11-14-2022 11:12-0500 Body weight 127.46 kg Fransisco Angel MD Work Phone: [facility] 11-13-2022 13:40-0500 Body height 170.2 cm Lyndon Velasquez MD Work Phone: [facility] 11-13-2022 13:40-0500 Body weight 124.74 kg Lyndon Velasquez MD Work Phone: [facility] 11-13-2022 13:40-0500 Diastolic blood pressure 81 mm[Hg] Lyndon Velasquez MD Work Phone: [facility] 11-13-2022 13:40-0500 Systolic blood pressure 141 mm[Hg] Lyndon Velasquez MD Work Phone: [facility] 10-23-2022 10:46-0500 Body height 170.2 cm Lyndon Velasquez MD Work Phone: [facility] 10-23-2022 10:46-0500 Body weight 124.74 kg Lyndon Velasquez MD Work Phone: [facility] 10-23-2022 10:46-0500 Diastolic blood pressure 90 mm[Hg] Lyndon Velasquez MD Work Phone: [facility] 10-23-2022 10:46-0500 Systolic blood pressure 144 mm[Hg] Lyndon Velasquez MD Work Phone: [facility] 10-03-2022 09:31-0500 Body weight 125.19 kg Angle Reagan SENIOR UI UX DEVELOPER.METHODS ANALYST Work Phone: [facility] 10-03-2022 09:31-0500 Diastolic blood pressure 80 mm[Hg] Angle Reagan SENIOR UI UX DEVELOPER.METHODS ANALYST Work Phone: [facility] 10-03-2022 09:31-0500 Heart rate 90 /min Angle Reagan SENIOR UI UX DEVELOPER.METHODS ANALYST Work Phone: [facility] 10-03-2022 09:31-0500 SaO2% (BldA) [Mass fraction] 98 % Angle Reagan SENIOR UI UX DEVELOPER.METHODS ANALYST Work Phone: [facility] 10-03-2022 09:31-0500 Systolic blood pressure 120 mm[Hg] Angle Reagan SENIOR UI UX DEVELOPER.METHODS ANALYST Work Phone: [facility] 09-12-2022 09:59-0500 Body temperature 98.91 [degF] Juliane Praisler-Wood SENIOR UI UX DEVELOPER.METHODS ANALYST Work Phone: [facility] 09-12-2022 09:59-0500 Body weight 127.01 kg Juliane Praisler-Wood SENIOR UI UX DEVELOPER.METHODS ANALYST Work Phone: [facility] 09-12-2022 09:59-0500 Diastolic blood pressure 74 mm[Hg] Juliane Praisler-Wood SENIOR UI UX DEVELOPER.METHODS ANALYST Work Phone: [facility] 09-12-2022 09:59-0500 Heart rate 90 /min Juliane Praisler-Wood SENIOR UI UX DEVELOPER.METHODS ANALYST Work Phone: [facility] [facility] 09-12-2022 09:59-0500 Respiratory rate 16 /min Juliane Praisler-Wood SENIOR UI UX DEVELOPER.METHODS ANALYST Work Phone: [facility] 09-12-2022 09:59-0500 SaO2% (BldA) [Mass fraction] 98 % Juliane Praisler-Wood SENIOR UI UX DEVELOPER.METHODS ANALYST Work Phone: [facility] 09-12-2022 09:59-0500 Systolic blood pressure 128 mm[Hg] Juliane Rosa SENIOR UI UX DEVELOPER.METHODS ANALYST Work Phone: [facility] 05-22-2022 15:29-0400 Diastolic blood pressure 84 mm[Hg] Barbara Older SENIOR UI UX DEVELOPER.METHODS ANALYST Work Phone: [facility] 05-22-2022 15:29-0400 Systolic blood pressure 125 mm[Hg] Barbara Older SENIOR UI UX DEVELOPER.METHODS ANALYST Work Phone: [facility] 05-22-2022 14:56-0400 Body weight 133.81 kg Barbara Older SENIOR UI UX DEVELOPER.METHODS ANALYST Work Phone: [facility] 05-22-2022 14:56-0400 Heart rate 84 /min Barbara Older SENIOR UI UX DEVELOPER.METHODS ANALYST Work Phone: [facility] 05-22-2022 14:56-0400 Respiratory rate 20 /min Barbara Older SENIOR UI UX DEVELOPER.METHODS ANALYST Work Phone: [facility] 04-02-2022 15:16-0400 Body height 170.18 cm [facility] Work Phone: 04-02-2022 15:16-0400 Body mass index (BMI) [Ratio] 47.5 kg/m2 [facility] Work Phone: 04-02-2022 15:16-0400 Body temperature 96.7 [degF] [facility] Work Phone: 04-02-2022 15:16-0400 Body weight 137.5 kg [facility] Work Phone: 04-02-2022 15:16-0400 Diastolic blood pressure 106 mm[Hg] [facility] Work Phone: 04-02-2022 15:16-0400 Heart rate 100 /min [facility] Work Phone: 04-02-2022 15:16-0400 Respiratory rate 18 /min [facility] Work Phone: 04-02-2022 15:16-0400 Systolic blood pressure 153 mm[Hg] [facility] Work Phone: 02-19-2022 14:03-0400 Body temperature 96.8 [degF] Fransisco Angel MD Work Phone: [facility] 02-19-2022 14:03-0400 Body weight 135.17 kg Fransisco Angel MD Work Phone: [facility] 02-19-2022 14:03-0400 Diastolic blood pressure 80 mm[Hg] Fransisco Angel MD Work Phone: [facility] 02-19-2022 14:03-0400 Heart rate 80 /min Fransisco Angel MD Work Phone: [facility] 02-19-2022 14:03-0400 Respiratory rate 28 /min Fransisco Angel MD Work Phone: [facility] 02-19-2022 14:03-0400 SaO2% (BldA) [Mass fraction] 96 % Fransisco Angel MD Work Phone: [facility] 02-19-2022 14:03-0400 Systolic blood pressure 124 mm[Hg] Fransisco Angel MD Work Phone: [facility] 02-03-2022 13:25-0400 Body temperature 97.7 [degF] Barbara Older SENIOR UI UX DEVELOPER.METHODS ANALYST Work Phone: [facility] 02-03-2022 13:25-0400 Body weight 134.26 kg Barbara Older SENIOR UI UX DEVELOPER.METHODS ANALYST Work Phone: [facility] 02-03-2022 13:25-0400 Diastolic blood pressure 80 mm[Hg] Barbara Older SENIOR UI UX DEVELOPER.METHODS ANALYST Work Phone: [facility] 02-03-2022 13:25-0400 Heart rate 98 /min Barbara Older SENIOR UI UX DEVELOPER.METHODS ANALYST Work Phone: [facility] 02-03-2022 13:25-0400 Respiratory rate 20 /min Barbara Older SENIOR UI UX DEVELOPER.METHODS ANALYST Work Phone: [facility] 02-03-2022 13:25-0400 SaO2% (BldA) [Mass fraction] 97 % Barbara Older SENIOR UI UX DEVELOPER.METHODS ANALYST Work Phone: [facility] 02-03-2022 13:25-0400 Systolic blood pressure 132 mm[Hg] Barbara Older SENIOR UI UX DEVELOPER.METHODS ANALYST Work Phone: [facility] 12-03-2021 16:37-0500 Body mass index (BMI) [Ratio] 43 kg/m2 [facility] Work Phone: 12-03-2021 16:37-0500 Body temperature 97 [degF] [facility] Work Phone: 12-03-2021 16:37-0500 Body weight 124.73 kg [facility] Work Phone: 12-03-2021 16:37-0500 Diastolic blood pressure 96 mm[Hg] [facility] Work Phone: 12-03-2021 16:37-0500 Heart rate 100 /min [facility] Work Phone: 12-03-2021 16:37-0500 Respiratory rate 18 /min [facility] Work Phone: 12-03-2021 16:37-0500 SaO2% (BldA) [Mass fraction] 97 % [facility] Work Phone: 12-03-2021 16:37-0500 Systolic blood pressure 179 mm[Hg] [facility] Work Phone: Encounters Encounter Date Encounter Type Care Provider Facility Start: 04-12-2025 ambulatory [facility] Facility: [facility] Start: 04-12-2025 End: 04-12-2025 Subsequent hospital visit by physician Screen Mammo [facility] M[facility]ogram Comment on above: Encounter for screen ing mammogram for malignant neoplasm of breast [Z12.31] Start: 03-18-2025 End: 03-18-2025 Emergency department patient visit JAIME HASTINGS DO [facility] Start: 03-09-2025 End: 03-09-2025 ambulatory BARBARA CORONADO Facility:[facility] Start: 03-05-2025 End: 03-05-2025 Patient encounter procedure Juana Cruz APRN.METHODS ANALYST Work Phone: OB/Gynecology Comment on above: Encounter for gyneco logical examination (general) (routine) without abnormal findings (Primary Dx); Encounter for screening mammogram for malignant neoplasm of breast; Abnormal uterine bleeding (AUB) Start: 03-05-2025 End: 03-05-2025 Patient encounter status Juana Cruz SENIOR UI UX DEVELOPER.METHODS ANALYST Work Phone: [facility] Start: 03-05-2025 End: 03-05-2025 ambulatory JUANA CRUZ Facility:[facility] Start: 03-05-2025 Encounter for gynecological examination (general) (routine) without abnormal findings JUANA CRUZ [facility] Start: 02-23-2025 End: 02-23-2025 Office outpatient visit 25 minutes Barbara Coronado APRN.METHODS ANALYST Work Phone: [facility] Comment on above: Primary hypertension (Primary Dx); Anxiety in acute stress reaction; Mild intermittent extrinsic asthma without complication (HCC); Seasonal allergic rhinitis, unspecified trigger; Migraine without aura and without status migrainosus, not intractable; Encounter for screening mammogram for breast cancer Start: 02-23-2025 End: 02-23-2025 ambulatory BARBARA CORONADO Facility:[facility] Start: 01-25-2025 End: 01-25-2025 Emergency department patient visit Dr. Fransisco Angel MD Work Phone: -Emergency Department Work Phone: Start: 01-01-2025 End: 01-01-2025 ambulatory BARBARA CORONADO Facility:[facility] Start: 01-01-2025 End: 01-01-2025 Patient encounter procedure Barbara Coronado SENIOR UI UX DEVELOPER.METHODS ANALYST Work Phone: [facility] Comment on above: Migraine without aur a, not intractable, with status migrainosus (Primary Dx); Nausea and vomiting, unspecified vomiting type Start: 10-01-2024 End: 10-01-2024 Emergency department patient visit Dr. Guillermo Hinton DO -Emergency Department Work Phone: Start: 09-07-2024 End: 09-07-2024 Subsequent hospital visit by physician Xr [facility] Work Phone: Radiology Comment on above: Acute cough [R05.1] Start: 09-07-2024 End: 09-07-2024 ambulatory WILSON ABHIJIT Facility:[facility] Start: 09-07-2024 End: 09-07-2024 Patient encounter procedure Zoe Raya SENIOR UI UX DEVELOPER.METHODS ANALYST Work Phone: [facility] Comment on above: Acute cough (Primary Dx); Lower respiratory infection Start: 08-24-2024 End: 08-24-2024 Patient encounter procedure Barbara Coronado APRN.METHODS ANALYST Work Phone: [facility] Comment on above: Viral URI with cough (Primary Dx); Primary hypertension; Hyperglycemia; Obesity, Class III, BMI >= 40; Anxiety and depression Start: 08-24-2024 End: 08-24-2024 ambulatory BARBARA CORONADO Facility:[facility] Start: 08-04-2024 End: 08-04-2024 Emergency department patient visit Fransisco Angel Facility:[facility] Start: 05-01-2024 End: 05-01-2024 ambulatory WILSON ANGEL Facility:[facility] Start: 05-01-2024 End: 05-01-2024 Patient encounter procedure Zoe Raya SENIOR UI UX DEVELOPER.METHODS ANALYST Work Phone: [facility] Comment on above: URI, acute (Primary Dx) Start: 04-11-2024 Documentation procedure Mammog gentry Coordinator [facility] Department Start: 04-11-2024 Letter encounter Mammography Coordinator [facility] Start: 04-10-2024 End: 04-10-2024 Subsequent hospital visit by physician Screen Mammo [facility] Mammogram Comment on above: Encounter for screen ing mammogram for breast cancer [Z12.31] Start: 03-03-2024 End: 03-03-2024 Patient encounter procedure Juana Cruz SENIOR UI UX DEVELOPER.METHODS ANALYST Work Phone: OB/Gynecology Comment on above: Encounter for gyneco logical examination (general) (routine) without abnormal findings (Primary Dx); Encounter for screening mammogram for breast cancer Start: 03-03-2024 End: 03-03-2024 Patient encounter status Juana Cruz SENIOR UI UX DEVELOPER.METHODS ANALYST Work Phone: [facility] Start: 02-19-2024 End: 02-19-2024 Patient encounter procedure Barbara Coronado SENIOR UI UX DEVELOPER.METHODS ANALYST Work Phone: [facility] Comment on above: Primary hypertension (Primary Dx) Start: 12-25-2023 End: 12-25-2023 [facility] Start: 2023 ambulatory Fransisco guzman MD Work Phone: Internal Medicine [facility] Start: 12-03-2023 ambulatory Barbara angulo SENIOR UI UX DEVELOPER.METHODS ANALYST Work Phone: [facility] Comment on above: lab results Start: 12-03-2023 E-mail encounter fro m caregiver Barbara Coronado APRN.METHODS ANALYST Work Phone: [facility] Start: 11-20-2023 End: 11-20-2023 Patient encounter procedure Barbara Coronado APRN.METHODS ANALYST Work Phone: [facility] Comment on above: Primary hypertension (Primary Dx) Start: 06-18-2023 Telephone encounter Fransisco noble MD Work Phone: [facility] Comment on above: MRI Appointment Start: 06-12-2023 End: 06-12-2023 Subsequent hospital visit by physician Xr [facility] Work Phone: Radiology Comment on above: Suspected COVID-19 v irus infection [Z20.822] Start: 06-12-2023 End: 06-12-2023 Patient encounter procedure Haydee Gramajo PA-C Work Phone: [facility] Comment on above: Suspected COVID-19 v irus infection (Primary Dx) Start: 05-15-2023 End: 05-15-2023 Patient encounter procedure Barbara Older SENIOR UI UX DEVELOPER.METHODS ANALYST Work Phone: [facility] Comment on above: Panic attacks (Prima ry Dx); Elevated blood pressure reading in office without diagnosis of hypertension; Migraine without aura and without status migrainosus, not intractable; Adjustment disorder with anxiety; 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; Hemangioma of liver; Obesity, Class III, BMI >= 40 Start: 03-05-2023 Refill Barbara Older SENIOR UI UX DEVELOPER .METHODS ANALYST Work Phone: [facility] Comment on above: Refill Request Start: 03-04-2023 Telephone encounter Fransisco noble MD Work Phone: [facility] Comment on above: Appointment Start: 02-04-2023 Telephone encounter Fransisco noble MD Work Phone: Family [facility] Comment on above: Orders Start: 02-01-2023 End: 02-01-2023 Patient encounter procedure Angle Nieto APRN.METHODS ANALYST Work Phone: [facility] Comment on above: Positive Priscilla te st of right knee, initial encounter (Primary Dx); Acute pain of right knee Start: 01-29-2023 ambulatory Angle CALVERTMETHODS ANALYST Work Phone: [facility] Comment on above: x-ray Start: 01-29-2023 E-mail encounter fro m caregiver Angle Nieto APRN.METHODS ANALYST Work Phone: [facility] Start: 01-25-2023 End: 01-25-2023 Subsequent hospital visit by physician Rosana [facility] Work Phone: Radiology Comment on above: Acute pain of right knee [M25.561] Start: 01-25-2023 End: 01-25-2023 Patient encounter procedure Angle Nieto APRN.METHODS ANALYST Work Phone: [facility] Comment on above: Acute pain of right knee (Primary Dx); Positive Priscilla test of right knee, initial encounter Start: 12-14-2022 End: 12-14-2022 Patient encounter procedure Fransisco Angel MD Work Phone: [facility] Comment on above: Hemangioma of liver (Primary Dx); 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 Start: 12-10-2022 End: 12-10-2022 Subsequent hospital visit by physician Mri Radio [facility] (I-Stat/1.5t) Work Phone: Radiology Comment on above: Liver lesion [K76.9] Start: 12-07-2022 Telephone encounter Fransisco noble MD Work Phone: [facility] Comment on above: Patient Question Start: 11-15-2022 Documentation procedure Mammog gentry Coordinator [facility] Start: 11-15-2022 Letter encounter Mammography Coordinator [facility] Department Start: 11-15-2022 End: 11-15-2022 Subsequent [facility] Comment on above: Encounter for screen ing mammogram for malignant neoplasm of breast [Z12.31] Start: 11-14-2022 End: 11-14-2022 Patient encounter procedure Fransisco Angel MD Work Phone: [facility] Comment on above: Liver lesion (Primar y Dx); Need for influenza vaccination; Screening for cervical cancer; Migraine without aura and without status migrainosus, not intractable; Screening for colon cancer; Family history of liver cancer Start: 11-13-2022 End: 11-13-2022 ambulatory LYNDON VELASQUEZ Facility:[facility] Start: 11-13-2022 End: 11-13-2022 Patient encounter procedure Lyndon Velasquez MD Work Phone: [facility] Comment on above: Right nephrolithiasi s (Primary Dx); Renal cyst, left; Hepatic lesion Start: 11-06-2022 End: 11-06-2022 Subsequent hospital visit by physician Ct [facility] (I-Stat) Work Phone: Cat Scan Comment on above: Other hydronephrosis [N13.39] Start: 10-23-2022 End: 10-23-2022 ambulatory LYNDON VELASQUEZ Facility:[facility] Start: 10-23-2022 End: 10-23-2022 Patient encounter procedure Lyndon Velasquez MD Work Phone: Urology Comment on above: Left flank pain (Awa chris Dx); Right nephrolithiasis; Renal cyst, left; Abnormal urinalysis; Other hydronephrosis Start: 10-12-2022 End: 10-12-2022 Subsequent hospital visit by physician [facility] Work Phone: Radiology Comment on above: History of kidney st ones [Z87.442] Start: 10-03-2022 End: 10-03-2022 Patient encounter procedure Angle Nieto APRN.METHODS ANALYST Work Phone: [facility] Comment on above: Acute left-sided low back pain without sciatica (Primary Dx); History of kidney stones; Leukocytes in urine Start: 09-12-2022 End: 09-12-2022 Patient encounter procedure Juliane Rosa APRN.METHODS ANALYST Work Phone: [facility] Comment on above: Sore throat (Primary Dx); Exposure to strep throat; Viral URI with cough Start: 07-24-2022 Refill Barbara Older SENIOR UI UX DEVELOPER .METHODS ANALYST Work Phone: [facility] Comment on above: Refill Request Start: 06-01-2022 End: 06-01-2022 ambulatory Barbara Gracia SENIOR UI UX DEVELOPER.METHODS ANALYST Work Phone: [facility] Work Phone: Comment on above: CT and lab results Start: 06-01-2022 E-mail encounter fro m caregiver Barbara Gracia APRN.METHODS ANALYST Work Phone: [facility] Start: 06-01-2022 End: 06-01-2022 Patient encounter procedure [facility], Specimen Start: 05-22-2022 End: 05-22-2022 Patient encounter procedure Barbara Older SENIOR UI UX DEVELOPER.METHODS ANALYST Work Phone: [facility] Comment on above: Acute intractable he adache, unspecified headache type (Primary Dx) Start: 04-02-2022 End: 04-02-2022 [facility] Start: 03-23-2022 End: 03-23-2022 Patient encounter procedure Fransisco Angel MD Work Phone: [facility] Comment on above: Routine medical exam (Primary Dx); Obesity, Class III, BMI 40-49.9 (morbid obesity) (HCC); Anxiety and depression; Bronchospasm; Goiter, nontoxic, multinodular; Screening for cervical cancer; Encounter for hepatitis C screening test for low risk patient; Screening for colon cancer; Encounter for screening mammogram for malignant neoplasm of breast; Elevated blood pressure reading in office with diagnosis of hypertension Start: 03-23-2022 End: 03-23-2022 Patient encounter status Fransisco Angel MD Work Phone: [facility] Start: 02-19-2022 End: 02-19-2022 Subsequent hospital visit by physician Xr [facility] Work Phone: Radiology Comment on above: Bronchospasm [J98.01 ] Start: 02-19-2022 End: 02-19-2022 Patient encounter procedure Fransisco Angel MD Work Phone: [facility] Comment on above: Bronchospasm (Primar y Dx); COVID-19 Start: 02-03-2022 End: 02-03-2022 Patient encounter procedure Barbara Gracia APRN.CNP Work Phone: [facility] Comment on above: Suspected COVID-19 v irus infection (Primary Dx) Start: 12-03-2021 End: 12-03-2021 [facility] Start: 05-19-2012 End: 12-15-2021 Patient requested procedure Barbara Coronado APRN.CNP Work Phone: [facility] Procedures Date Procedure Procedure Detail Performing Clinician Start: 03-09-2025 Lipid 1996 panel - S caitlyn or Plasma Screen [facility] Start: 01-25-2025 X-ray of ankle, thre e or more views Dr. Fransisco Angel MD Work Phone: Start: 10-01-2024 Plain x-ray of wrist Dr Genet Angel MD Work Phone: Start: 09-07-2024 Radiologic exam ches t 2 views Zoe Raya SENIOR UI UX DEVELOPER.METHODS ANALYST Work Phone: Start: 05-01-2024 STREP A MOLECULAR (POC) [facility] Provider Start: 12-25-2023 Plain chest X-ray Start: 11-23-2023 Lipid 1996 panel - S caitlyn or Plasma Barbara Sonny SENIOR UI UX DEVELOPER.METHODS ANALYST Work Phone: Start: 06-12-2023 Radiologic exam ches t 2 views Haydee Azeem WEINSTEINC Work Phone: Start: 01-25-2023 Radiologic exam knee complete 4/more views Angle Nieto SENIOR UI UX DEVELOPER.METHODS ANALYST Work Phone: Start: 12-10-2022 Mri abdomen w/o & w/ contrast material Fransisco Angel MD Work Phone: Start: 11-15-2022 End: 11-15-2022 Mammography Fransisco Barron Work Phone: Start: 11-14-2022 [employer] COVI D-19 BIVALENT BOOSTER VACCINE, AGE 12+ YR Fransisco Angel MD Work Phone: Start: 11-14-2022 INFLUENZA VACCINE QUADRIVALENT 6 MO - 64 YRS IM Fransisco Angel MD Work Phone: Start: 11-06-2022 Ct abdomen & pelvis w/o contrst 1/> body re Lyndon Velasquez MD Work Phone: Start: 10-23-2022 Urnls dip stick/tabl et rgnt auto w/o microscopy Lyndon Velasquez MD Work Phone: Start: 10-12-2022 Us retroperitoneal r eal time w/image complete Angle Nieto SENIOR UI UX DEVELOPER.METHODS ANALYST Work Phone: Start: 01-04-2023 Culture bacterial quanttative colony count urine Angle Reagan SENIOR UI UX DEVELOPER.[employer]STA Work Phone: Start: 10-03-2022 Urnls dip stick/tabl et rgnt auto w/o microscopy Angle Nieto APRN.MODESTA Work Phone: Start: 09-12-2022 STREP A MOLECULAR (POC) Haydee Gramajo PA-C Work Phone: Start: 06-01-2022 CT of head without contrast Start: 04-02-2022 X-ray of both feet Start: 03-24-2022 Lipid 1996 panel - S caitlyn or Plasma Haydee Gramajo PA-C Work Phone: Start: 02-19-2022 Radiologic exam ches t 2 views Fransisco Angel MD Work Phone: Start: 12-03-2021 Radiologic examinati on of knee Plan of Treatment Date Care Activity Detail Author Start: 03-09-2030 Lipid panel Lipid Screening [facility] Start: 03-11-2029 Urine microalbumin profile [facility] Start: 11-23-2028 Lipid panel Lipid Screening [facility] Start: 03-09-2028 Diabetes Screening Diabetes Screenin [facility] Start: 12-11-2027 HPV TESTING HPV TESTING [facility] Start: 12-11-2027 PAP TESTING PAP TESTING [facility] Start: 12-11-2027 Screening for malign ant neoplasm of cervix [facility] Start: 03-24-2027 Lipid 1996 panel - Serum or Plasma Lipid Screening [facility] Start: 03-24-2027 Lipid panel Lipid Screening [facility] Start: 03-24-2027 LIPID SCREEN LIPID SCREEN [facility] Start: 12-02-2026 Diabetes Screening Diabetes Screenin g [facility] Start: 11-23-2026 Diabetes Screening Diabetes Screenin g [facility] Start: 03-08-2026 End: 03-08-2026 Patient encounter procedure 03/08/2026 3:30 PM EDT Office Visit OB/Gynecology [address] [place], [place] [id number] Juana Cruz APRN.MODESTA [address] [place] [id number] Annual OB/Gynecology Comment on above: Annual Start: 02-23-2026 Annual PCP Team Trials Manager barbara Disease Visit Annual PCP Team Chronic Disease Visit [facility] Start: 02-23-2026 Covid-19 Vaccine ( season) Covid-19 Vaccine () [facility] Comment on above: Postponed from 05/31 (Declined at this time) Start: 02-23-2026 Hepatitis B Vaccine (1 of 3 - 19+ 3-dose series) Hepatitis B Vaccine (1 of 3 - 19+ 3-dose series) [facility] Comment on above: Postponed from 12/18 (Declined at this time) Start: 01-01-2026 Annual PCP Team Trials Manager barbara Disease Visit Annual PCP Team Chronic Disease Visit [facility] Start: 01-01-2026 BP Controlled (<130/80) BP Controlle d (<130/80) [facility] Start: 12-12-2025 COLOGUARD (FIT-DNA) COLOGUARD (FIT-D NA) [facility] Start: 12-12-2025 COLORECTAL CANCER SCREENING COLORECTAL CANCER SCREENING [facility] Start: 12-12-2025 Screening for malign ant neoplasm of colon [facility] Start: 09-07-2025 BP Controlled (<130/80) BP Controlle d (<130/80) [facility] Start: 08-30-2025 End: 08-30-2025 Patient encounter procedure 08/30/2025 2:40 PM EST Office Visit [facility] [address] [place] [address] Barbara Coronado M, SENIOR UI UX DEVELOPER.METHODS ANALYST [address] [place] [address] annual wellness [facility] Comment on above: annual wellness Start: 08-24-2025 Annual PCP Team Trials Manager barbara Disease Visit Annual PCP Team Chronic Disease Visit [facility] Start: 08-24-2025 BP Controlled (<130/80) BP Controlle d (<130/80) [facility] Start: 05-31-2025 Influenza vaccination [facility] Start: 05-22-2025 DIABETES SCREEN DIABETES SCREEN [facility] Start: 05-22-2025 Diabetes Screening Diabetes Screenin g [facility] Start: 04-12-2025 End: 04-12-2025 Patient encounter procedure 04/12/2025 2:50 PM EDT Appointment Mammogram [address] [place] [address] Encounter for screening mammogram for malignant neoplasm of breast [Z12.31] Mammogram Comment on above: Encounter for screen ing mammogram for malignant neoplasm of breast [Z12.31] Start: 04-10-2025 Screening for malign ant neoplasm of breast Mammogram Screening [facility] Start: 03-24-2025 DIABETES SCREEN DIABETES SCREEN [facility] Start: 03-18-2025 End: 03-18-2025 ambulatory 03/18/2025 2:30 PM EDT Procedure OB/Gynecology [address] [place] [address] Remote, Desulphurizer Operator [facility] [address] [place] [address] Abnormal uterine bleeding (AUB) [N93.9] OB/Gynecology Comment on above: Abnormal uterine ble eding (AUB) [N93.9] Start: 03-05-2025 End: 03-05-2025 Patient encounter procedure 03/05/2025 4:00 PM EDT Office Visit OB/Gynecology [address] [place] [address] Juana Cruz APRN.METHODS ANALYST [address] [place] [address] annual exam OB/Gynecology Comment on above: annual exam Start: 03-05-2025 End: 03-05-2026 US Pelvis PELVIC US [facility] Anc Imaging Routine Abnormal uterine bleeding (AUB) Expected: 03/05/2025, Expires: 03/05/2026 [facility] Comment on above: Expected: 03/05/2025 , Expires: 03/05/2026 Start: 03-03-2025 BP Controlled (<130/80) BP Controlle d (<130/80) [facility] Start: 02-23-2025 End: 02-23-2025 Patient encounter procedure 02/23/2025 2:40 PM EDT Office Visit Internal Medicine [facility] [address] [place] [address] Barbara Coronado, SENIOR UI UX DEVELOPER.METHODS ANALYST [address] [place] [address] 6 month follow up [facility] Comment on above: 6 month follow up Start: 02-23-2025 End: 05-25-2025 LIPID PANEL, NONFASTING LIPID PANEL, NONFASTING Lab Routine Primary hypertension Expected: 02/23/2025, Expires: 05/25/2025 [facility] Comment on above: Expected: 02/23/2025 , Expires: 05/25/2025 Start: 02-18-2025 Annual PCP Team Trials Manager barbara Disease Visit Annual PCP Team Chronic Disease Visit [facility] Start: 01-28-2025 End: 04-29-2025 CBC panel - Blood by Automated count COMPLETE BLOOD COUNT Lab Routine Primary hypertension Expected: 01/28/2025 (Approximate), Expires: 04/29/2025 [facility] Comment on above: Expected: 01/28/2025 (Approximate), Expires: 04/29/2025 Start: 01-28-2025 End: 04-29-2025 Comprehensive metabolic 2000 panel - Serum or Plasma COMPREHENSIVE METABOLIC PANEL Lab Routine Primary hypertension Expected: 01/28/2025 (Approximate), Expires: 04/29/2025 [facility] Work Phone: Comment on above: Expected: 01/28/2025 (Approximate), Expires: 04/29/2025 Start: 01-28-2025 End: 04-29-2025 Hemoglobin A1c in Blood HEMOGLOBIN A1C Lab Routine Hyperglycemia Expected: 01/28/2025 (Approximate), Expires: 04/29/2025 [facility] Comment on above: Expected: 01/28/2025 (Approximate), Expires: 04/29/2025 Start: 01-28-2025 End: 04-29-2025 Lipid 1996 panel - Serum or Plasma LIPID PANEL BASIC Lab Routine Primary hypertension Expected: 01/28/2025 (Approximate), Expires: 04/29/2025 [facility] Comment on above: Expected: 01/28/2025 (Approximate), Expires: 04/29/2025 Start: 01-25-2025 [facility] Start: 11-20-2024 Annual PCP Team Trials Manager barbara Disease Visit Annual PCP Team Chronic Disease Visit [facility] Start: 10-01-2024 [facility] Start: 08-24-2024 End: 08-24-2024 Patient encounter procedure 08/24/2024 2:40 PM EST Office Visit Internal Medicine [facility] [address] [place] [address] Barbara Coronado, SENIOR UI UX DEVELOPER.METHODS ANALYST [address] [facility] [place] [place] [address] 6 month follow up [facility] Medicine [facility] Comment on above: 6 month follow up Start: 05-31-2024 Covid-19 Vaccine ( season) Covid-19 Vaccine ( season) [facility] Start: 05-31-2024 Covid-19 Vaccine ( season) Covid-19 Vaccine ( season) [facility] Start: 05-31-2024 Influenza vaccination [facility] Start: 05-15-2024 HEPATITIS B (1 of 3 - 3-dose series) HEPATITIS B (1 of 3 - 3-dose series) [facility] Comment on above: Postponed from 12/18 (Declined at this time) Start: 05-15-2024 Hepatitis B Vaccine (1 of 3 - 19+ 3-dose series) Hepatitis B Vaccine (1 of 3 - 19+ 3-dose series) [facility] Comment on above: Postponed from 12/18 (Declined at this time) Start: 05-15-2024 Hepatitis B Vaccine (1 of 3 - 3-dose series) Hepatitis B Vaccine (1 of 3 - 3-dose series) [facility] Comment on above: Postponed from 12/18 (Declined at this time) Start: 04-10-2024 End: 04-10-2024 Patient encounter procedure 04/10/2024 2:50 PM EDT Appointment Mammogram [address] [place] [address] Encounter for screening mammogram for breast cancer [Z12.31] Mammogram Comment on above: Encounter for screen ing mammogram for breast cancer [Z12.31] Start: 03-03-2024 End: 03-03-2024 Patient encounter procedure 03/03/2024 1:00 PM EDT Office Visit OB/Gynecology [address] [place] [address] Juana Cruz APRN.METHODS ANALYST [address] [place] [address] Annual OB/Gynecology Comment on above: Annual Start: 12-25-2023 [facility] Start: 12-25-2023 Blood chemistry [facility] Start: 12-25-2023 End: 12-25-2023 [facility] Start: 12-03-2023 End: 03-03-2024 Hemoglobin A1c in Blood HGB A1C Lab Routine Hyperglycemia Expected: 12/03/2023, Expires: 03/03/2024 [facility] Work Phone: Comment on above: Expected: 12/03/2023 , Expires: 03/03/2024 Start: 11-20-2023 End: 02-19-2024 CBC panel - Blood by Automated count CBC Lab Routine Primary hypertension Expected: 11/20/2023, Expires: 02/19/2024 [facility] Work Phone: Comment on above: Expected: 11/20/2023 , Expires: 02/19/2024 Start: 11-20-2023 End: 02-19-2024 Comprehensive metabolic 2000 panel - Serum or Plasma COMP METABOLIC PANEL Lab Routine Primary hypertension Expected: 11/20/2023, Expires: 02/19/2024 [facility] Work Phone: Comment on above: Expected: 11/20/2023 , Expires: 02/19/2024 Start: 11-20-2023 End: 02-19-2024 Lipid 1996 panel - Serum or Plasma LIPID PANEL BASIC Lab Routine Primary hypertension Expected: 11/20/2023, Expires: 02/19/2024 [facility] Work Phone: Comment on above: Expected: 11/20/2023 , Expires: 02/19/2024 Start: 11-15-2023 Mammography [facility] Start: 11-15-2023 Screening for malign ant neoplasm of breast Mammogram Screening [facility] Start: 05-31-2023 Covid-19 Vaccine () Covid-19 Vaccine () [facility] Start: 05-31-2023 Influenza vaccination [facility] Start: 11-13-2022 End: 01-13-2023 Bacteria identified in Urine by Culture URINE CULTURE Microbiology Routine Abnormal urinalysis Expected: 11/13/2022 (Approximate), Expires: 01/13/2023 [facility] Work Phone: Comment on above: Expected: 11/13/2022 (Approximate), Expires: 01/13/2023 Start: 11-13-2022 End: 01-13-2023 CREATININE BLD CREATININE BLD Lab Routine Renal cyst, left Other hydronephrosis Expected: 11/13/2022 (Approximate), Expires: 01/13/2023 [facility] Work Phone: Comment on above: Expected: 11/13/2022 (Approximate), Expires: 01/13/2023 Start: 11-13-2022 End: 11-22-2023 Ct abdomen & pelvis w/o contrst 1/> body re CT UROGRAM WO/W IVCON Radiology Routine Other hydronephrosis Expected: 11/13/2022 (Approximate), Expires: 11/22/2023 [facility] Work Phone: Comment on above: Expected: 11/13/2022 (Approximate), Expires: 11/22/2023 Start: 11-13-2022 End: 01-13-2023 Urinalysis complete panel - Urine URINALYSIS, WITH MICROSCOPIC Lab Routine Abnormal urinalysis Expected: 11/13/2022 (Approximate), Expires: 01/13/2023 [facility] Work Phone: Comment on above: Expected: 11/13/2022 (Approximate), Expires: 01/13/2023 Start: 09-12-2022 End: 09-26-2022 Influenza virus A and B RNA and SARS-CoV-2 (COVID-19) N gene panel - Respiratory specimen by ESTHER with probe detection COVID WITH FLUA+B, ROUTINE Microbiology Routine Viral URI with cough Expected: 09/12/2022, Expires: 09/26/2022 [facility] Work Phone: Comment on above: Expected: 09/12/2022 , Expires: 09/26/2022 Start: 05-31-2022 Influenza vaccination [facility] Start: 03-24-2022 End: 05-24-2022 Hepatitis C virus Ab [Presence] in Serum [facility] Work Phone: Comment on above: Expected: 03/24/2022 , Expires: 05/24/2022 Start: 02-03-2022 End: 02-17-2022 SARS-CoV-2 (COVID-19) RNA [Presence] in Respiratory specimen by ESTHER with probe detection 2019 CORONAVIRUS Microbiology Routine Suspected COVID-19 virus infection Expected: 02/03/2022, Expires: 02/17/2022 [facility] Work Phone: Comment on above: Expected: 02/03/2022 , Expires: 02/17/2022 Start: 2021 COLOGUARD (FIT-DNA) COLOGUARD (FIT-D NA) [facility] Start: 2021 Colonoscopy COLONOSCOPY [facility] Start: 2021 COLORECTAL CANCER SCREENING COLORECTAL CANCER SCREENING [facility] Start: [address] COLONOGRAPHY [facility] Start: 2021 DIABETES SCREEN DIABETES SCREEN [facility] Start: 2021 FECAL OCCULT BLOOD FECAL OCCULT BLOO D [facility] Start: 2021 LIPID SCREEN LIPID SCREEN [facility] Start: 2021 Screening for malign ant neoplasm of colon [facility] Start: 2021 SIGMOIDOSCOPY SIGMOIDOSCOPY [facility] Start: 08-07-2021 COVID-19 VACCINE (3 - Booster for Pfizer series) COVID-19 VACCINE (3 - Booster for Pfizer series) [facility] Start: 05-02-2021 COVID-19 VACCINE (3 - Booster for Pfizer series) COVID-19 VACCINE (3 - Booster for Pfizer series) [facility] Start: 04-13-2019 Urine microalbumin profile DTAP,TDAP,TD (2 - Td or Tdap) [facility] Start: 2016 Mammography MAMMOGRAM [facility] Start: 02-28-2016 HPV TESTING HPV TESTING [facility] Start: 02-28-2016 PAP TESTING PAP TESTING [facility] Start: 12-19-1995 Hepatitis B Vaccine (1 of 3 - 19+ 3-dose series) Hepatitis B Vaccine (1 of 3 - 19+ 3-dose series) [facility] Start: 1994 Anxiety Screening Anxiety Screening [facility] Start: 1994 BP Controlled (<130/80) BP Controlle d (<130/80) [facility] Start: 1994 Depression Screening Depression Scre ening [facility] Start: 1994 HEPATITIS C SCREENING HEPATITIS C SC REENING [facility] Start: 1976 HEPATITIS B (1 of 3 - 3-dose series) HEPATITIS B (1 of 3 - 3-dose series) [facility] COLOGUARD COLOGUARD Lab Ro utine Screening for colon cancer Ordered: 11/14/2022 [facility] Work Phone: Comment on above: Ordered: 11/14/2022 COVID & INFLUENZA A/ B & RSV PCR, ROUTINE COVID & INFLUENZA A/B & RSV PCR, ROUTINE Microbiology Routine Viral URI with cough 08/24/2024 2:56 PM EST [facility] End: 04-04-2026 DBT Breast - bilateral screening RUFINO SCREENING W HELENE Radiology Routine Encounter for screening mammogram for malignant neoplasm of breast 1 Occurrences starting 03/05/2025 until 04/04/2026 [facility] Work Phone: Comment on above: 1 Occurrences starti ng 03/05/2025 until 04/04/2026 DBT Breast - bilater al screening RUFINO SCREENING W HELENE Radiology Routine Encounter for screening mammogram for malignant neoplasm of breast 04/12/2025 2:55 PM EDT [facility] Work Phone: Hemoglobin.gastroint est inal.lower [Presence] in Stool by Immunoassay FECAL OCCULT BLOOD TEST Lab Routine Screening for colon cancer Ordered: 03/23/2022 [facility] Work Phone: Comment on above: Ordered: 03/23/2022 Influenza virus A an d B RNA and SARS-CoV-2 (COVID-19) N gene panel - Respiratory specimen by ESTHER with probe detection COVID & INFLUENZA A/B NAAT, ROUTINE Microbiology Routine Suspected COVID-19 virus infection Ordered: 06/12/2023 [facility] Work Phone: Comment on above: Ordered: 06/12/2023 End: 01-16-2025 MG Breast Screening RUFINO SCREENING Radiology Routine Encounter for screening mammogram for breast cancer 1 Occurrences starting 2023 until 01/16/2025 [facility] Work Phone: Comment on above: 1 Occurrences starti ng 2023 until 01/16/2025 End: 04-02-2025 MG Breast Screening RUFINO SCREENING Radiology Routine Encounter for screening mammogram for breast cancer 1 Occurrences starting 03/03/2024 until 04/02/2025 [facility] Work Phone: Comment on above: 1 Occurrences starti ng 03/03/2024 until 04/02/2025 MG Breast Screening RUFINO SCREENIN G Radiology Routine Encounter for screening mammogram for breast cancer 04/10/2024 2:51 PM EDT [facility] Work Phone: MG Breast Screening RUFINO SCREENIN G Radiology Routine Encounter for screening mammogram for breast cancer 1 Occurrences starting 02/23/2025 [facility] Work Phone: Comment on above: 1 Occurrences starti ng 02/23/2025 End: 06-13-2024 Mri abdomen w/o & w/contrast material MRI LIVER WO/W IVCON Radiology Routine 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 Hemangioma of liver 1 Occurrences starting 05/15/2023 until 06/13/2024 [facility] Work Phone: Comment on above: 1 Occurrences starti ng 05/15/2023 until 06/13/2024 End: 12-14-2023 Mri abdomen w/o contrast material MRI LIVER WO IVCON Radiology Routine Liver lesion 1 Occurrences starting 11/14/2022 until 12/14/2023 [facility] Work Phone: Comment on above: 1 Occurrences starti ng 11/14/2022 until 12/14/2023 End: 02-24-2024 MRI KNEE WO IVCON RIGHT MRI KNEE WO IVCON RIGHT Radiology Routine Acute pain of right knee Positive Priscilla test of right knee, initial encounter 1 Occurrences starting 01/25/2023 until 02/24/2024 [facility] Work Phone: Comment on above: 1 Occurrences starti ng 01/25/2023 until 02/24/2024 Patient Education [facility] Work Phone: Patient referral [facility] Work Phone: End: 04-22-2023 Screening mammography bi 2-view breast inc cad RUFINO SCREENING Radiology Routine Encounter for screening mammogram for malignant neoplasm of breast 1 Occurrences starting 03/23/2022 until 04/22/2023 [facility] Work Phone: Comment on above: 1 Occurrences starti ng 03/23/2022 until 04/22/2023 UA DIP B/O UA DIP B/O Lab R outine Acute left-sided low back pain without sciatica Ordered: 10/03/2022 [facility] Work Phone: Comment on above: Ordered: 10/03/2022 End: 02-24-2024 XR KNEE GENERAL 4V AP BOTH/PA BOTH/LAT/MERC RIGHT XR KNEE GENERAL 4V AP BOTH/PA BOTH/LAT/MERC RIGHT Radiology Routine Acute pain of right knee Positive Priscilla test of right knee, initial encounter 1 Occurrences starting 01/25/2023 until 02/24/2024 [facility] Work Phone: Comment on above: 1 Occurrences starti ng 01/25/2023 until 02/24/2024 XR KNEE GENERAL 4V A P BOTH/PA BOTH/LAT/MERC RIGHT XR KNEE GENERAL 4V AP BOTH/PA BOTH/LAT/MERC RIGHT Radiology Routine Acute pain of right knee Positive Priscilla test of right knee, initial encounter 01/25/2023 3:49 PM EDT [facility] Work Phone: [facility] Immunizations Immunization Date Immunization Notes Care Provider Fa vy 11-14-2022 COVID-19 booster vaccine, age 12+ yr, bivalent (PFIZER-BIONTECH) Fransisco Angel MD Work Phone: [facility] Work Phone: 11-14-2022 influenza, injectabl e, quadrivalent, contains preservative Fransisco Angel MD Work Phone: [facility] Work Phone: 11-14-2022 influenza virus vaccine, unspecified formulation Haydee Gramajo PA-C Work Phone: [facility] 03-11-2019 tetanus toxoid, redu deng diphtheria toxoid, and acellular pertussis vaccine, adsorbed Fransisco Angel MD Work Phone: [facility] Work Phone: 09-18-2015 tetanus toxoid, redu deng diphtheria toxoid, and acellular pertussis vaccine, adsorbed Fransisco Angel MD Work Phone: [facility] Work Phone: 04-13-2009 tetanus toxoid, redu deng diphtheria toxoid, and acellular pertussis vaccine, adsorbed Barbara Older SENIOR UI UX DEVELOPER.METHODS ANALYST Work Phone: [facility] Work Phone: Payers Date Payer Category Payer Self-pay [id number] 2024 Private Health Insurance [id number] 2024 Self-pay [id number] 2023 Medicare [place] [facility] MEDIC[facility] [id number] 2023-Present [phone] [address] [place] [address] Medicare [id number] 2020 Unknown MMO MMO [employer] [id number] 2020-Present [phone] [address] [place] [address] PPO [id number] 2020 Medicaid [place] [employer] [facility] MEDICAID [id number] 2020-Present [phone] [address] [place] [address] Medicaid [id number] 2020 Medicaid [id number] 2020 Unknown [id number] 2015 Unknown [id number] 2005 Unknown [id number] 1976 Unknown [id number] Unknown [id number] Unknown [id number] [id number] Unknown [id number] Unknown [id number] Unknown [id number] Social History Date Type Detail Facility Start: 05-22-2022 End: 08-24-2024 Tobacco smoking status NHIS Ex-smoker [facility] Start: 04-28-2010 End: 04-28-2012 History of tobacco use Current smoker [facility] Start: 02-03-2022 End: 03-05-2025 Alcohol intake Current drinker of alcohol (finding) [facility] Start: 12-14-2021 End: 11-13-2022 History SDOH Alcohol Frequency 2 [facility] Start: 12-14-2021 End: 11-13-2022 History SDOH Alcohol Std Drinks 1 [facility] Start: 05-19-2012 History SDOH Alcohol Comment Rarely,NOT WHILE [facility] Start: 12-14-2021 End: 11-13-2022 History SDOH Social Connections Phone 3 [facility] Start: 12-14-2021 End: 11-13-2022 History SDOH Social Connections Living 8 [facility] Start: 12-14-2021 History SDOH Stress 5 [facility] Start: 12-14-2021 End: 11-13-2022 History SDOH Financial 4 [facility] Start: 1975 Sex Assigned At Female [facility] Start: 01-24-2022 End: 02-03-2022 Exposure to SARS-CoV-2 (event) Unable to assess [facility] Start: 02-09-2022 End: 06-01-2022 Exposure to SARS-CoV-2 (event) Not sure [facility] Work Phone: Start: 03-23-2022 History SDOH Alcohol Comment 1-2 mixed drinks per month [facility] Start: 04-02-2022 End: 12-25-2023 Tobacco smoking status NEIS Unknown if ever smoked [facility] Start: 04-28-2010 End: 04-28-2012 History of tobacco use Cigarette Smoker [facility] Start: 05-22-2022 End: 08-24-2024 Tobacco use and exposure Smokeless tobacco non-user [facility] Start: 05-22-2022 Tobacco Comment as a teen [facility] Start: 11-13-2022 History SDOH Social Connections Get Together 98 [facility] Start: 11-13-2022 End: 02-23-2025 History of Social function [facility] Start: 11-13-2022 End: 02-23-2025 Social connection and isolation panel [facility] How often do you get together with friends or relatives? Patient refused [facility] Do you belong to any clubs or organizations such as Bablic groups, [employer], [employer] or [employer]ing groups, or school groups? No [facility] Are you now , , , , never or living with a partner? Living with partner [facility] How often to you hav e a drink containing alcohol? Monthly or less [facility] How many standard dr inks containing alcohol do you have on a typical day? 1 or 2 [facility] How often do you hav e 6 or more drinks on 1 occasion? Less than monthly [facility] How hard is it for y ou to pay for the very basics like food, housing, medical care, and heating Somewhat hard [facility] Do you feel stress - tense, restless, nervous, or anxious, or unable to sleep at night because your mind is troubled all the time - these days [OSQ] Rather much [facility] (I/We) worried whebertram er (my/our) food would run out before (I/we) got money to buy more. Never true [facility] Start: 12-13-2021 Gender identity Identifies as female gender (finding) [facility] Start: 12-13-2021 Sexual orientation Heterosexual (finding) [facility] How often do you hav e 6 or more drinks on 1 occasion? Never [facility] Work Phone: How hard is it for y ou to pay for the very basics like food, housing, medical care, and heating Not very hard [facility] Do you feel stress - tense, restless, nervous, or anxious, or unable to sleep at night because your mind is troubled all the time - these days [OSQ] Very much [facility] Do you belong to any clubs or organizations such as Bablic groups, unions, fraternal or athletic groups, or school groups? Yes [facility] Do you feel stress - tense, restless, nervous, or anxious, or unable to sleep at night because your mind is troubled all the time - these days [OSQ] To some extent [facility] History of tobacco use Passive smoker [facility] Start: 01-25-2025 Tobacco smoking status NHIS Never smoked tobacco (finding) [facility] Start: 01-25-2025 Sex Female (finding) [facility] Functional Status Date Assessment Result Facility 04-13-2015 Are you deaf, or do you have serious difficulty hearing No 04/13/2015 8:51 AM Melany Sue RN No [facility] 04-13-2015 Are you blind, or do you have serious difficulty seeing, even when wearing glasses No 04/13/2015 8:51 AM Melany Sue RN No [facility] 04-13-2015 Do you have serious difficulty walking or climbing stairs No 04/13/2015 8:51 AM Melany Sue RN No [facility] 04-13-2015 Do you have difficul ty dressing or bathing No 04/13/2015 8:51 AM Melany Sue RN No [facility] 04-13-2015 Because of a physica l, mental, or emotional condition, do you have difficulty doing errands alone such as visiting a physician's office or shopping No 04/13/2015 8:51 AM Melany Sue RN No [facility] Mental Status Date Assessment Result Facility 12-25-2023 Cognitive function Level Of Cons ciousness Awake;Alert;Appropriate;Fol lows Commands [facility] Work Phone: 04-13-2015 Because of a physica l, mental, or emotional condition, do you have serious difficulty concentrating, remembering, or making decisions No 04/13/2015 8:51 AM Melany Sue RN No [facility] Clinical Notes 02-16-2017 to 04-12-2025 José Mary Mammo Tech - 04/12/2025 2:50 PM EDT Note Date & Type Note Facility 04-12-2025 History of Present illness Narrative Radiology Service Progress Note PATIENT NAME: Antonia SHORTN: [id number] DATE OF SERVICE: April 12, 2025 TIME: 3:15 PM PATIENT IDENTITY VERIFICATION COMPLETED USING TWO (2) IDENTIFIERS: Name and Date of confirmed by patient verbally. FALL SCREENING: Has the patient had 2 falls in the last year or 1 fall with injury or currently using an Ambulatory Assistive Device (Walker, Cane, Wheelchair, Crutches, etc.)? No PATIENT GENDER DATA: Assigned female at . status: : No status: NO. PATIENT RELEVANT IMPLANT DATA REVIEWED: Not Applicable PATIENT PRESENTS WITH AN IMPLANTABLE OR ATTACHED APPLIANCE LINE ASSEMBLER: No RADIOLOGY DEPARTMENT: Mammography PERIPHERAL IV DATA: Not applicable SIGNED BY: Ke Horta April 12, 2025 3:15 PM documented in this encounter [facility] 04-12-2025 Note HNO ID: [id number] Author: JOSÉ MARY Mammo Tech Service: ? Author Type: Medical Records Custodian Type: Progress Notes Filed: 04/12/2025 15:16 Note Text: Radiology Service Progress Note PATIENT NAME: Antonia Coronado DATE OF SERVICE: April 12, 2025 TIME: 3:15 PM PATIENT IDENTITY VERIFICATION COMPLETED USING TWO (2) IDENTIFIERS: Name and Date of confirmed by patient verbally. FALL SCREENING: Has the patient had 2 falls in the last year or 1 fall with injury or currently using an Ambulatory Assistive Device (Walker, Cane, Wheelchair, Crutches, etc.)? No PATIENT GENDER DATA: Assigned female at . status: : No status: NO. PATIENT RELEVANT IMPLANT DATA REVIEWED: Not Applicable PATIENT PRESENTS WITH AN IMPLANTABLE OR ATTACHED APPLIANCE LINE ASSEMBLER: No RADIOLOGY DEPARTMENT: Mammography PERIPHERAL IV DATA: Not applicable SIGNED BY: Ke Horta April 12, 2025 3:15 PM [facility] 03-19-2025 Hospital Discharge instructions Patient Education 03/18/2025 23:30:51 Treating Strains and Sprains Treating Strains and Sprains Strains and sprains happen when muscles or other soft tissues near your bones stretch or tear. These injuries can cause bruising, swelling, and pain. To ease your discomfort and speed the healing of your strain or sprain, follow the tips below. Remember, a strain or sprain can take 6 to 8 weeks to heal. Important Note: Do not give aspirin to children or teens without discussing it with your healthcare provider first. Ice first, heat later Use ice for the first 24 to 48 hours after injury. Ice helps prevent swelling and reduce pain. Ice the injury for no more than 20 minutes at a time and allow at least 20 minutes between icing sessions. Apply heat after the first 72 hours, once the swelling has gone down. Heat relaxes muscles and increases blood flow. Soak the injured area in warm water or use a heating pad set on low for no more than 15 minutes at a time. Wrap and elevate Wrap an injured limb firmly with an elastic bandage. This provides support and helps prevent swelling. Don t wear an elastic bandage overnight. Watch for tingling, numbness, or increased pain. Remove the bandage immediately if any of these occurs. Elevate the injured area to help reduce swelling and throbbing. It s best to raise an injured limb above the level of your heart. Medicines Ujry-dhr-mlvrloh medicines such as acetaminophen or ibuprofen can help reduce pain. Some also help reduce swelling. Take medicine only as directed. Rest the area even if medicines are controlling the pain. Rest Rest the injured area by not using it for 24 hours. When you re ready, return slowly to your normal activities. Rest the injured area often. Don t use or walk on an injured limb if it hurts. [id number] [employer]. [address] [place] [address]. All rights reserved. This information is not intended as a substitute for professional medical care. Always follow your healthcare professional's instructions. Follow Up Care 03/18/2025 21:31:23 With:KAILA BRANDON DO, Orthopedic Address: [address] [place] [address], [address] [place] [address]- [phone] When:5 to 7 days With:Go to emergency room if symptoms worsen Address:Unknown When:2-4 days With:Follow up with primary care provider Address:Unknown When:2-4 days [facility] 03-18-2025 Note Discharge Instructions Thank you for allowing [facility] to assist you with your healthcare needs. The following is important discharge information regarding your hospital visit. Diagnosis from Today's Visit Wrist sprain What to Do Next Instructions from Your Care Team X-ray here was negative for fracture or dislocation. Wear Velcro splint as needed for comfort. Follow-up with your primary care provider. If continued pain in 7 to 10 days may benefit from repeat x-ray to rule out occult fracture. Take Tylenol and or Motrin as needed for pain. If continued pain may follow-up with Dr. Brandon of orthopedics. Return emergency department if you have significantly worsening pain, numbness, or any other care concern. Discharge Home Equipment - Ordered -- Splint, wrist Left, 99 month(s), 03/18/25 23:30:00 EDT Post Acute Orders No qualifying data available. You Need to Schedule the Following Appointments Follow Up with KAILA BRANDON DO, Orthopedic When:Within 5 to 7 days Where:[address] [place] [address], [address] [place] [address]- [phone] Follow Up with Go to emergency room if symptoms worsen When:Within 2-4 days Follow Up with Follow up with primary care provider When:Within 2-4 days Allergies naproxen Medications Please ask your primary doctor or pharmacist before taking any other medication not listed, including over the counter drugs, herbal medications, vitamins and or supplements as they may interact with your home medications. Please take this list to your next doctor s visit. Bring all medications you take, including over the counter medications, herbals and other supplements with you to your doctor s visit. Patients and families are reminded to discard old lists and to update any records with all medication providers or retail pharmacies. Education Materials Treating Strains and Sprains Strains and sprains happen when muscles or other soft tissues near your bones stretch or tear. These injuries can cause bruising, swelling, and pain. To ease your discomfort and speed the healing of your strain or sprain, follow the tips below. Remember, a strain or sprain can take 6 to 8 weeks to heal. Important Note: Do not give aspirin to children or teens without discussing it with your healthcare provider first. Ice first, heat later Use ice for the first 24 to 48 hours after injury. Ice helps prevent swelling and reduce pain. Ice the injury for no more than 20 minutes at a time and allow at least 20 minutes between icing sessions. Apply heat after the first 72 hours, once the swelling has gone down. Heat relaxes muscles and increases blood flow. Soak the injured area in warm water or use a heating pad set on low for no more than 15 minutes at a time. Wrap and elevate Wrap an injured limb firmly with an elastic bandage. This provides support and helps prevent swelling. Don t wear an elastic bandage overnight. Watch for tingling, numbness, or increased pain. Remove the bandage immediately if any of these occurs. Elevate the injured area to help reduce swelling and throbbing. It s best to raise an injured limb above the level of your heart. Medicines Fzzs-cdh-lmfuldb medicines such as acetaminophen or ibuprofen can help reduce pain. Some also help reduce swelling. Take medicine only as directed. Rest the area even if medicines are controlling the pain. Rest Rest the injured area by not using it for 24 hours. When you re ready, return slowly to your normal activities. Rest the injured area often. Don t use or walk on an injured limb if it hurts. [id number] [employer]. [address] [place] [address]. All rights reserved. This information is not intended as a substitute for professional medical care. Always follow your healthcare professional's instructions. Additional Information VACCINATE! IT SAVES LIVES! Members of the community who have not yet received the COVID-19 vaccine and would like to receive it can visit one of [facility] vaccine clinics. There are many vaccine clinic locations within the [facility]. For locations and available times, please visit [email or web address] [email or web address] It is important to note that some COVID mobile vaccine clinics are held outdoors and may be canceled in rainy or stormy conditions. To learn more about pediatric vaccinations (ages 5-11), we invite you to visit the [facility] webpage. [email or web address] To learn more about the COVID-19 vaccine, we invite you to visit the CDC website for a list of frequently asked questions. https://www.cdc.gov/coronavirus/ 2019-ncov/vaccines/faq.html [facility] Patient Portal Access Instructions: Stay connected with your healthcare team and access your personal medical information anytime with the [employer] Patient Portal. If you would like a full copy of your medical records please contact the [facility] Medical Records Department Saturday through Saturday between 8a.m. and 4:30p.m. Please follow the directions below to access the portal: 1.Access the email account you provided upon registration to the [facility].2.Look for an invitation email from [facility].3.Open the email and access the invitation link: Accept Invitation to [facility]4.Fill in the required gibbons to create your account. Sign into [email or web address] with your username and password that you created in the above steps to stay up to date. You can then view a summary of results, a summary of your visits, and the ability to download your summaries to your computer or send the information securely to a physician. Remember that your healthcare information is confidential, so carefully consider who you will allow to register on the [employer] Patient Portal for access to your information. You can also access the [employer] Patient Portal on the [employer]. Simply click on Health Records under Health Data and then click on the [employer] logo. HOW TO SAFELY DISPOSE OF PRESCRIPTION MEDICATIONS Please use one of the following methods to safely dispose of your unused medications. 1.Use a drug disposal kit: the drug disposal pouch allows you to safely discard your old and unused drugs. Ask your nurse to give you one when you are discharged.2.Visit a local take-back location: Many local pharmacies and police departments have programs that collect old and unwanted prescription drugs. Call your local pharmacy or go to [email or web address]/[email or web address] to find one close to you.3.Make use of household items: Use cat litter or old coffee grounds to dispose medications if other options are not available. Mix your drugs with these household products, seal them in an airtight container and throw it into the garbage. Call [facility]: [phone] to be sure your drugs can be disposed of in this way. Some medicines may require a different approach.4.Never flush your medications down the toilet. IF YOU HAVE BEEN PRESCRIBED AN OPIOIDS FOR PAIN If you have been prescribed an opioid (such as hydrocodone, oxycodone or morphine), it is critical to understand the possible side effects and risks of opioid pain medications. Even when taken as directed, opioids can have several side effects including: Tolerance, meaning you might need to take more of a medication for the same pain relief. Nausea, vomiting and/or constipation. Sleepiness, dizziness, dry mouth, confusion, depression or itching. Physical dependence, meaning you have withdrawal symptoms when a medication is stopped ? this can develop within a few days. KNOW YOUR RESPONSIBILITIES It is important to know exactly how much and how often to take the opioid pain medications you are prescribed. Never take opioids in higher amounts or more often than prescribed. Do not combine opioids with alcohol or other drugs that cause drowsiness, such as benzodiazepines, also known as benzos, including diazepam and alprazolam, muscle relaxants or sleep aids. Never sell or share prescription opioids. This is illegal. Store opioids in a secure place and out of reach of others (including children, family, friends and visitors). The last page(s) of this document has been signed and retained as a CHART COPY Signatures Patient Education Materials Treating Strains and Sprains Medication Leaflets My discharge plan and instructions have been reviewed and explained to me and I,ANTONIA CORONADO understand my current condition and have read and understand these discharge instructions. I have received a written copy of the plan/instructions. If I have questions, I am aware that I should contact my doctor. 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 HISTORY: ORDERING SYSTEM PROVIDED HISTORY: Reason for Exam: FALL, WRIST PAIN pain, fall FINDINGS: No acute fracture or dislocation. Carpal rows are maintained. No focal soft tissue abnormality is noted. IMPRESSION: No acute fracture or dislocation. Interpreted by: Karyn Strauss Preliminary Report By: Karyn Strauss Electronically signed By Kayrn Strauss Dictated Date: 03/18/2025 11:15:21 PM Prelim Date: 03/18/2025 11:16:49 PM Sign Date: 03/18/2025 11:16:49 PM Ordering Provider: [facility]06-06-2025 NoteHNO ID: [id number] Author: JUANA CRUZ APRN.METHODS ANALYST Service: ? Author Type: Nurse Practitioner Type: Progress Notes Filed: 03/05/2025 16:14 Note Text: Juliane is a 49 year old who presents for an annual gynecologic exam with complaints, heavy and irregular bleeding. Menses: cycles every months lasting about 3- 14 days- sometimes light but can be very heavy with large clots Contraception: tubal sterilization HPV vaccine: No Last Pap: 12/14/2022 normal HPV: 12/11/2022 negative History of abnormal pap: No Last mammogram: 2023 normal Sexually active: Yes OB History Gravida6 Para4 Term1 Preterm0 AB2 Living4 SAB2 IAB0 Ectopic0 Multiple0 Live Births4 Director Of Respiratory Therapy History LMP: 02/18/2025 (Exact Date), Perimenopausal Age at Menarche: 15 Age at First : Age at Menopause: Director Of Respiratory Therapy History Comments: Sexual Activity: Yes; Male Contraception: Tubal Ligation Menstrual Tracking History Flowsheet Row Office Visit from 03/05/2025 in OB/Gynecology Period Cycle (Days) 30 Period Duration (Days) 7 Menstrual Flow Heavy PAST MEDICAL HISTORY Diagnosis Date Anxiety and depression 12/26/2015 Depression FRACTURE FOOT Hemangioma of liver 12/14/2022 Hydronephrosis 08/25/2002 right hydronephrosis per [place] Marital conflict 02/12/2012 Multinodular goiter 02/18/2012 Obesity, unspecified 05/19/2012 05/19/2012Patient is obese. One-hour GCT drawn today. Panic 02/12/2012 Supervision of high-risk (HCC) 06/13/2012 06/13/12 - done - v23 - KK Unspecified essential hypertension 2007 Urinary calculus, unspecified 2001 Renal stones PAST SURGICAL HISTORY Procedure Laterality Date DELIVERY ONLY 12/31/12 , low transverse CHOLECYSTECTOMY 2000 Cholecystectomy DILATION AND CURETTAGE DXAND/THER NONOBSTETRIC 1999 Dilation AND curettage EXTENSIVE FOOT SURGERY 07/2010 Left Foot PAST SURGICAL HISTORY OF 12-24-07 left plantar fasciotomy TONSILLECTOMY PRIMARY/SECONDARY AGE 12/1997 TUBAL LIGATION, 12/31/12 pptl at time of FAMILY HISTORY Problem Relation Age of Onset Cancer Mother LIVER, GALL BLADDER Diabetes Mother borderline blood sugars other (glaucoma [Other]) Maternal Grandmother Cancer Maternal Grandmother Seizures Daughter Asthma Son SOCIAL HISTORY Social History Tobacco Use Smoking status: Former Current packs/day: 0.00 Types: Cigarettes Start date: 04/28/2010 Quit date: 04/28/2012 Years since quittin.8 Passive exposure: Current Smokeless tobacco: Never Tobacco comments: as a teen Vaping Use Vaping status: Never Used Substance Use Topics Alcohol use: Yes Comment: 1-2 mixed drinks per month Drug use: No REVIEW OF SYSTEMS Abdomen: No abdominal pain, nausea, vomiting, diarrhea, or constipation. No bloating, early satiety, indigestion, or increased flatulence. Bladder: No dysuria, gross hematuria, urinary frequency, urinary urgency, +stress incontinence. Breast: No breast lumps, nipple d/c, overlying skin changes, redness or skin retraction. Allergies and current medication updated:Yes SENSITIVE EXAM: The sensitive examination was discussed with the Patient or Patient's Authorized [employer] Tr[employer] Worker. As applicable, any other physician, advance practice provider, medical student, or other health professional student that will be observing or involved in the sensitive examination for educational or training purposes was discussed with the Patient or Authorized Metal Cast[employer] Trades Worker. The Patient or Authorized Metal Casting Trades Worker has agreed to proceed with the sensitive examination. (Sensitive examination includes inspection and/or palpation of the breasts, pelvis, prostate and anorectal regions). EXAM: BP 124/82 Ht 5' 6 (1.68m) Wt 296 lb (134.3kg) LMP 02/18/2025 BMI 47.80 kg/(m2). GENERAL: pleasant, female in no apparent distress HEENT: Normocephalic, atraumatic, mucus membranes moist, and no lesions DERMATOLOGY: Normal, without lesions, non-icteric, and non-hirsute BREAST: soft, non-tender, symmetric, no dominant mass, normal nipple-areolar complex, no lymphadenopathy, and no nipple discharge CHEST: Normal inspiratory effort ABDOMEN: soft, non-tender, and no masses PELVIC: external genitalia normal, normal Bartholin's glands, urethra, Northfield's glands, no vulvar lesions, no cervical lesions, physiologic discharge present, normal appearing perineal body and perianal region BIMANUAL: uterus normal size, shape and consistency, no adnexal masses, and non-tender RECTOVAGINAL: deferred. NEURO: alert and oriented x3,exam grossly non-focal EXTREMITIES: normal ASSESSMENT/PLAN: 1. Encounter for gynecological examination (general) (routine) without abnormal findings - ICD9: V72.31, ICD10: Z01.419 (primary diagnosis) - Completed pap test and breast exam - Encouraged monthly BSE - Follow up for annual exam in one year. 2. Encounter for screening mammogram for malig (more content not included)... [facility]06-06-2025 History of Present illness Narrative* Juana Cruz, ERIK.METHODS ANALYST - 03/05/2025 3:39 PM EDT Juliane is a 49 year old who presents for an annual gynecologic exam with complaints, heavy and irregular bleeding. Menses: cycles every months lasting about 3- 14 days- sometimes light but can be very heavy with large clots Contraception: tubal sterilization HPV vaccine: No Last Pap: 12/14/2022 normal HPV: 12/11/2022 negative History of abnormal pap: No Last mammogram: 2023 normal Sexually active: Yes OB History Gravida6 Para4 Term1 Preterm0 AB2 Living4 SAB2 IAB0 Ectopic0 Multiple0 Live Births4 Director Of Respiratory Therapy History LMP: 02/18/2025 (Exact Date), Perimenopausal Age at Menarche: 15 Age at First : Age at Menopause: Director Of Respiratory Therapy History Comments: Sexual Activity: Yes; Male Contraception: Tubal Ligation Menstrual Tracking History Flowsheet Row Office Visit from 03/05/2025 in OB/Gynecology Period Cycle (Days) 30 Period Duration (Days) 7 Menstrual Flow Heavy PAST MEDICAL HISTORY Diagnosis Date Anxiety and depression 12/26/2015 Depression FRACTURE FOOT Hemangioma of liver 12/14/2022 Hydronephrosis 08/25/2002 right hydronephrosis per [place] Marital conflict 02/12/2012 Multinodular goiter 02/18/2012 Obesity, unspecified 05/19/2012 05/19/2012Patient is obese. One-hour GCT drawn today. Panic 02/12/2012 Supervision of high-risk (HCC) 06/13/2012 06/13/12 - done - v23 - KK Unspecified essential hypertension 2006 Urinary calculus, unspecified 2001 Renal stones PAST SURGICAL HISTORY Procedure Laterality Date DELIVERY ONLY 12/31/12 , low transverse CHOLECYSTECTOMY 2000 Cholecystectomy DILATION & CURETTAGE DX&/THER NONOBSTETRIC 1999 Dilation & curettage EXTENSIVE FOOT SURGERY 07/2010 Left Foot PAST SURGICAL HISTORY OF 12-24-07 left plantar fasciotomy TONSILLECTOMY PRIMARY/SECONDARY AGE 13/> 1997 TUBAL LIGATION, 12/31/12 pptl at time of FAMILY HISTORY Problem Relation Age of Onset Cancer Mother LIVER, GALL BLADDER Diabetes Mother borderline blood sugars other (glaucoma [Other]) Maternal Grandmother Cancer Maternal Grandmother Seizures Daughter Asthma Son SOCIAL HISTORY Social History Tobacco Use Smoking status: Former Current packs/day: 0.00 Types: Cigarettes Start date: 04/28/2010 Quit date: 04/28/2012 Years since quittin.8 Passive exposure: Current Smokeless tobacco: Never Tobacco comments: as a teen Vaping Use Vaping status: Never Used Substance Use Topics Alcohol use: Yes Comment: 1-2 mixed drinks per month Drug use: No REVIEW OF SYSTEMS Abdomen: No abdominal pain, nausea, vomiting, diarrhea, or constipation. No bloating, early satiety, indigestion, or increased flatulence. Bladder: No dysuria, gross hematuria, urinary frequency, urinary urgency, +stress incontinence. Breast: No breast lumps, nipple d/c, overlying skin changes, redness or skin retraction. Allergies and current medication updated:Yes SENSITIVE EXAM: The sensitive examination was discussed with the Patient or Patient's Authorized Metal Cast[employer] Trades Worker. As applicable, any other physician, advance practice provider, medical student, or other health professional student that will be observing or involved in the sensitive examination for educational or training purposes was discussed with the Patient or Authorized Metal Casting Trades Worker. The Patient or Authorized Metal Casting Trades Worker has agreed to proceed with the sensitive examination. (Sensitive examination includes inspection and/or palpation of the breasts, pelvis, prostate and anorectal regions). EXAM: BP 124/82 Ht 5' 6 (1.68m) Wt 296 lb (134.3kg) LMP 02/18/2025 BMI 47.80 kg/(m^2). GENERAL: pleasant, female in no apparent distress HEENT: Normocephalic, atraumatic, mucus membranes moist, and no lesions DERMATOLOGY: Normal, without lesions, non-icteric, and non-hirsute BREAST: soft, non-tender, symmetric, no dominant mass, normal nipple-areolar complex, no lymphadenopathy, and no nipple discharge CHEST: Normal inspiratory effort ABDOMEN: soft, non-tender, and no masses PELVIC: external genitalia normal, normal Bartholin's glands, urethra, Northfield's glands, no vulvar lesions, no cervical lesions, physiologic discharge present, normal appearing perineal body and perianal region BIMANUAL: uterus normal size, shape and consistency, no adnexal masses, and non-tender RECTOVAGINAL: deferred. NEURO: alert and oriented x3,exam grossly non-focal EXTREMITIES: normal ASSESSMENT/PLAN: 1. Encounter for gynecological examination (general) (routine) without abnormal findings - ICD9: V72.31, ICD10: Z01.419 (primary diagnosis) - Completed pap test and breast exam - Encouraged monthly BSE - Follow up for annual exam in one year. 2. Encounter for screening mammogram for malignant neoplasm of breast - ICD9: V76.12, ICD10: Z12.31 - RUFINO SCREENING W HELENE 3. Abnormal uterine bleeding (AUB) - ICD9: 626.9, ICD10: N93.9 - PELVIC US [facility]I Will notify patient of test results. Juana Cruz APRN.CNP [facility] NoteHNO ID: [id number] Author: BARBARA CORONADO APRN.CNP Service: ? Author Type: Nurse Practitioner Type: Progress Notes Filed: 02/23/2025 15:07 Note Text: CC: Patient presents with: Follow Up: 6 months Ear Pain: Bilateral ear pain x 1 week HPI Recording using [employer] software for draft documentation of the visit was discussed with the patient/authorized roofing sales representative; all questions welcomed and answered. Patient/authorized roofing sales representative agreed to proceed Juliane is a 49-year-old female with a history of asthma, HTN, and migraines, presenting for a routine follow-up and albuterol refill. Juliane uses albuterol as needed for asthma, primarily during spring and summer due to allergies. She reports using the inhaler once or twice a day when outside for extended periods, such as during her children's sporting events. She also takes Claritin for allergies, which is effective most of the time, but she is currently experiencing congestion and bilateral otalgia, with the right ear being more affected than the left. She denies any recent rhinorrhea. She is currently taking lisinopril for HTN and denies experiencing dizziness or lightheadedness. She monitors her blood pressure at home, which has been well-controlled until about 3 weeks ago. She attributes the recent increase in blood pressure to significant stress, including her daughter's hospitalizations and the loss of a grandchild. Her blood pressure has been consistently elevated over the past 2 weeks. Juliane also has a history of migraines, for which she takes Zofran and Imitrex. She typically experiences migraines once a month or less, but has had two episodes in the past couple of weeks, which she attributes to increased stress. She denies any new or unusual migraine symptoms. Review of Systems See HPI PAST MEDICAL HISTORY Diagnosis Date Anxiety and depression 12/26/2015 Depression FRACTURE FOOT Hemangioma of liver 12/14/2022 Hydronephrosis 08/25/2002 right hydronephrosis per [place] Marital conflict 02/12/2012 Multinodular goiter 02/18/2012 Obesity, unspecified 05/19/2012 05/19/2012Patient is obese. One-hour GCT drawn today. Panic 02/12/2012 Supervision of high-risk (HCC) 06/13/2012 06/13/12 - RA done - v23 - KK Unspecified essential hypertension 2006 Urinary calculus, unspecified 2001 Renal stones PAST SURGICAL HISTORY Procedure Laterality Date DELIVERY ONLY 12/31/12 , low transverse CHOLECYSTECTOMY 2000 Cholecystectomy DILATION AND CURETTAGE DXAND/THER NONOBSTETRIC 1999 Dilation AND curettage EXTENSIVE FOOT SURGERY 07/2010 Left Foot PAST SURGICAL HISTORY OF 12-24-07 left plantar fasciotomy TONSILLECTOMY PRIMARY/SECONDARY AGE 12/1997 TUBAL LIGATION, 12/31/12 pptl at time of ALLERGIES Grass Pollen and Naprosyn [Naproxen] MEDICATIONS albuterol HFA (PROAIR HFA) 90 mcg/actuation inhaler Inhale 2 puffs as instructed every 6 hours as needed for wheezing/shortness of breath. SUMAtriptan (IMITREX) 50 mg tablet Take one tablet as needed for migraine/headache. Can repeat in 2 hours if ineffective. No more than 2 tablets in 24 hours. ondansetron orally disintegrating (ZOFRAN ODT) 4 mg disintegrating tablet Take 1 tablet by mouth every 8 hours as needed for nausea/vomiting. lisinopril (ZESTRIL) 10 mg tablet Take 1 tablet by mouth once daily. multivitamin tablet Take 1 tablet by mouth once daily. loratadine (CLARITIN) 10 mg tablet Take 1 tablet by mouth once daily. ACETAMINOPHEN (TYLENOL ORAL) Take by mouth as needed. FAMILY HISTORY Problem Relation Age of Onset Cancer Mother LIVER, GALL BLADDER Diabetes Mother borderline blood sugars other (glaucoma [Other]) Maternal Grandmother Cancer Maternal Grandmother Seizures Daughter Asthma Son Social History Tobacco Use Smoking status: Former Current packs/day: 0.00 Types: Cigarettes Start date: 04/28/2010 Quit date: 04/28/2012 Years since quittin.8 Passive exposure: Current Smokeless tobacco: Never Tobacco comments: as a teen Vaping Use Vaping status: Never Used Substance Use Topics Alcohol use: Yes Comment: 1-2 mixed drinks per month Drug use: No BP 122/84 Pulse 94 Resp 16 Wt (!) 136.5 kg (300 lb 14.9 oz) LMP 02/18/2024 (Exact Date) SpO2 96% BMI 47.13 kg/m? Physical Exam Vitals reviewed. Constitutional: Appearance: Normal appearance. HENT: Right Ear: Tympanic membrane normal. Left Ear: Tympanic membrane normal. Mouth/Throat: Mouth: Mucous membranes are moist. Pharynx: Oropharynx is clear. Eyes: Conjunctiva/sclera: Conjunctivae normal. Cardiovascular: Rate and Rhythm: Normal rate and regular rhythm. Heart sounds: Normal heart sounds. Pulmonary: Effort: Pulmonary effort is normal. Breath sounds: Normal breath sounds. No wheezing, rhonchi or rales. Lymphadenopathy: Cervical: No cervical adenopathy. Neurological: Mental (more content not included)...[facility]05-27-2025 History of Present illness Narrative* Barbara Coronado, SENIOR UI UX DEVELOPER.METHODS ANALYST - 02/23/2025 3:02 PM EDT CC: Patient presents with: Follow Up: 6 months Ear Pain: Bilateral ear pain x 1 week HPI Recording using [employer] software for draft documentation of the visit was discussed with the patient/authorized roofing sales representative; all questions welcomed and answered. Patient/authorized roofing sales representative agreed to proceed Juliane is a 49-year-old female with a history of asthma, HTN, and migraines, presenting for a routine follow-up and albuterol refill. Juliane uses albuterol as needed for asthma, primarily during spring and summer due to allergies. Shereports using the inhaler once or twice a day when outside for extended periods, such as during [place]. She also takes Claritin for allergies, which is effective most of the time, but she is currently experiencing congestion and bilateral otalgia, with the right ear being more affected than the left. She denies any recent rhinorrhea. She is currently taking lisinopril for HTN and denies experiencing dizziness or lightheadedness. She monitors her blood pressure at home, which has been well- controlled until about 3 weeks ago. She attributes the recent increase in blood pressure to significant stress, including her daughter's hospitalizations and the loss of a grandchild. Her blood pressure has been consistently elevated over the past 2 weeks. Juliane also has a history of migraines, for which she takes Zofran and Imitrex. She typically experiences migraines once a month or less, but has had two episodes in the past couple of weeks, which she attributes to increased stress. She denies any new or unusual migraine symptoms. Review of Systems See HPI PAST MEDICAL HISTORY Diagnosis Date Anxiety and depression 12/26/2015 Depression FRACTURE FOOT Hemangioma of liver 12/14/2022 Hydronephrosis 08/25/2002 right hydronephrosis per [place] Marital conflict 02/12/2012 Multinodular goiter 02/18/2012 Obesity, unspecified 05/19/2012 05/19/2012Patient is obese. One-hour GCT drawn today. Panic 02/12/2012 Supervision of high-risk (HCC) 06/13/2012 06/13/12 - done - v23 - KK Unspecified essential hypertension 2007 Urinary calculus, unspecified 2001 Renal stones PAST SURGICAL HISTORY Procedure Laterality Date DELIVERY ONLY 12/31/12 , low transverse CHOLECYSTECTOMY 2000 Cholecystectomy DILATION & CURETTAGE DX&/THER NONOBSTETRIC 1999 Dilation & curettage EXTENSIVE FOOT SURGERY 07/2010 Left Foot PAST SURGICAL HISTORY OF 12-24-07 left plantar fasciotomy TONSILLECTOMY PRIMARY/SECONDARY AGE 13/> 1997 TUBAL LIGATION, 12/31/12 pptl at time of ALLERGIES Grass Pollen and Naprosyn [Naproxen] MEDICATIONS albuterol HFA (PROAIR HFA) 90 mcg/actuation inhaler Inhale 2 puffs as instructed every 6 hours as needed for wheezing/shortness of breath. SUMAtriptan (IMITREX) 50 mg tablet Take one tablet as needed for migraine/headache. Can repeat in 2hours if ineffective. No more than 2 tablets in 24 hours. ondansetron orally disintegrating (ZOFRAN ODT) 4 mg disintegrating tablet Take 1 tablet by mouth every 8 hours as needed for nausea/vomiting. lisinopril (ZESTRIL) 10 mg tablet Take 1 tablet by mouth once daily. multivitamin tablet Take 1 tablet by mouth once daily. loratadine (CLARITIN) 10 mg tablet Take 1 tablet by mouth once daily. ACETAMINOPHEN (TYLENOL ORAL) Take by mouth as needed. FAMILY HISTORY Problem Relation Age of Onset Cancer Mother LIVER, GALL BLADDER Diabetes Mother borderline blood sugars other (glaucoma [Other]) Maternal Grandmother Cancer Maternal Grandmother Seizures Daughter Asthma Son Social History Tobacco Use Smoking status: Former Current packs/day: 0.00 Types: Cigarettes Start date: 04/28/2010 Quit date: 04/28/2012 Years since quittin.8 Passive exposure: Current Smokeless tobacco: Never Tobacco comments: as a teen Vaping Use Vaping status: Never Used Substance Use Topics Alcohol use: Yes Comment: 1-2 mixed drinks per month Drug use: No BP 122/84 Pulse 94 Resp 16 Wt (!) 136.5 kg (300 lb 14.9 oz) LMP 02/18/2024 (Exact Date) SpO2 96% BMI 47.13 kg/m Physical Exam Vitals reviewed. Constitutional: Appearance: Normal appearance. HENT: Right Ear: Tympanic membrane normal. Left Ear: Tympanic membrane normal. Mouth/Throat: Mouth: Mucous membranes are moist. Pharynx: Oropharynx is clear. Eyes: Conjunctiva/sclera: Conjunctivae normal. Cardiovascular: Rate and Rhythm: Normal rate and regular rhythm. Heart sounds: Normal heart sounds. Pulmonary: Effort: Pulmonary effort is normal. Breath sounds: Normal breath sounds. No wheezing, rhonchi or rales. Lymphadenopathy: Cervical: No cervical adenopathy. Neurological: Mental Status: She is alert. Psychiatric: Mood and Affect: Affect normal. Mood is anxious. Health maintenance reviewed with patient: BP Controlled (<130/80) Never done Mammogram Screening due on 04/10/2025 Hepatitis B Vaccine(1 of 3 - 19+ 3-dose series) due on 02/23/2026 Covid-19 Vaccine( season) due on 02/23/2026 Influenza Vaccine(Season Ended) due on 05/31/2025 Colorectal Cancer Screening due on 12/12/2025 Annual PCP Team Chronic Disease Visit due on 02/23/2026 Diabetes Screening due on 12/02/2026 Cervical Cancer Screening due on 12/11/2027 Lipid Screening due on 11/23/2028 DTaP,Tdap,Td Vaccine(4 - Td or Tdap) due on 03/11/2029 Hepatitis C Screening Completed HIV Screening Completed DATA REVIEWED: Most recent labs Assessment/Plan 1. Primary hypertension (I10) Blood pressure today was 132/88 mmHg initially, rechecked at 122/84 mmHg. Patient reports recent increase in BP readings at home over the past three weeks, coinciding with significant stress due to family issues. No side effects from current lisinopril therapy. - Continue lisinopril as prescribed. - Advised patient to refrain from frequent BP monitoring at home during this period of acute stressto avoid further anxiety. 2. Anxiety in acute stress reaction (F41.1) Patient experiencing significant stress due to recent family issues, including hospitalization of daughter and loss of a grandchild. - Provided supportive counseling during the visit. - Discussed the impact of stress on blood pressure and overall health. 3. Mild intermittent extrinsic asthma without complication (HCC) (J45.20) Asthma well-controlled with infrequent use of albuterol inhaler, primarily during outdoor activities in spring and summer. No recent exacerbations reported. - Refilled albuterol inhaler prescription. 4. Seasonal allergic rhinitis, unspecified trigger (J30.2) Currently managed with Claritin, but experiencing increased symptoms. Examination of ears revealed no abnormalities, likely due to congestion. - Continue Claritin. - Initiate Flonase nasal spray to reduce congestion and alleviate ear discomfort. 5. Migraine without aura and without status migrainosus, not intractable (G43.009) Typically experiences migraines infrequently, about once a month or less. Recently had two migraines in the past couple of weeks, likely triggered by stress. No new or unusual symptoms reported. - Continue current medications: Zofran and Imitrex as needed for migraine management. 6. Encounter for screening mammogram for breast cancer (Z12.31) Scheduled for March. - Advised patient to schedule the mammogram through [facility] in March or April to ensure insurance coverage. Prescription instructions reviewed with patient as applicable. Potential red flag symptoms discussed with the patient. Reviewed appropriate action plan to take if red flag symptoms occur. Patient agreeable to treatment plan. Barbara Coronado APRN.MODESTA documented in this encounter[facility]05-27-[facility]25 Instructions* Patient Instructions* Barbara Coronado APRN.MODESTA - 02/23/2025 2:58 PM EDT We discussed your asthma and allergies: - I sent a refill for your albuterol inhaler to your preferred pharmacy. Use it as needed, particularly when you anticipate being outside for extended periods, such as during your children s sportingevents. - Continue taking Claritin daily for your allergies. If your congestion persists, I recommend adding Flonase nasal spray to help alleviate symptoms. We discussed your blood pressure: - Your blood pressure today was 122/84, which is close to your usual range. Given the recent stressyou ve experienced, it s understandable that your blood pressure has been higher at home. - For now, I recommend not checking your blood pressure frequently, as this may increase your stress. If you feel unwell or notice concerning symptoms, please let me know. We discussed your migraines: - You reported having two migraines in the past couple of weeks, which is more frequent than usual.Stress appears to be a trigger for you at this time. - Continue using Zofran and Imitrex as needed for migraine management. Let me know if your migraines become more frequent or if you experience any new or unusual symptoms. We discussed your routine health maintenance: - Your mammogram is due in March. You can schedule this through [facility], but please ensure it is scheduled for March or later to ensure insurance coverage. If March is too busy, it is fine to schedule it in April. - You are due for blood work. I ordered a non-fasting cholesterol test so you can complete it today. If additional fasting labs are needed, you can return on Saturday to complete them. Follow-up: - We will see you again in 6 months for your next routine visit. This will be in July. If you need to adjust the appointment, please let us know. documented in this encounterMount [facility]04-28-2025 Rad[address] Diagnostic study note [facility] Imaging Services [address] [place] [address] [id number] Ankle min 3 Views MR#: [id number] Acct: [id number] Name: ANTONIA CORONADO Rep #: [id number] : 1975 F 49 From: Sammie Sánchez MD PCP: Dr. Fransisco Angel MD Status: R ER Study:Ankle min 3 Views Date of Exam: Exam# [id number] Ordering Dr: Wai Donnelly DO PROCEDURE: ANKLE MIN 3 VIEWS 01/25/2025 REASON FOR EXAM: PAIN TECHNIQUE: 3 views of the left ankle COMPARISON: None FINDINGS: There is screw fixation of the 5th metatarsal with chronic features. No acute fracture or dislocation is identified. The ankle mortise is not widened. A benign-appearing calcaneal spur is noted. RAD/Ankle min 3 Views IMPRESSION: There is screw fixation of the 5th metatarsal with chronic features. Reading Location: [facility] CC: Dr. Wai Donnelly DO; Dr. Fransisco Angel MD ~ Linen Keeper: Signed [facility]04-04-2025 NoteHNO ID: [id number] Author: BARBARA CORONADO APRN.CNP Service: ? Author Type: Nurse Practitioner Type: Progress Notes Filed: 01/01/2025 09:37 Note Text: CC: Patient presents with: Headache: X 3 days HPI The patient consented to the use of [employer] software for draft documentation of the visit consistent with [facility]?s Notice of Privacy Practices. Juliane is a 49-year-old female presenting with a severe migraine headache. Juliane reports a migraine that began on Saturday and has progressively worsened, becoming constant today. She describes the pain as primarily throbbing, occasionally stabbing, and affecting her entire head. The intensity is greater than her usual migraines, stating, I feel like my head's just going to explode. She has experienced increased emesis, vomiting twice at work today, which is more frequent than with previous migraines. She denies blurred vision, dizziness, or phonophobia, but notes mild photophobia, stating, these lights are kind of sucking right now. She denies fever, chills, recent head trauma, balance or coordination issues, or paresthesia. She has not had a migraine in several months and is out of Imitrex, which usually provides relief. She has tried ibuprofen, Tylenol, and Excedrin Migraine without relief. She denies recent illnesses such as sinus infections or colds. She has a known allergy to naproxen, which causes emesis. Review of Systems Constitutional: Negative for chills, diaphoresis and fever. HENT: Negative for congestion. Respiratory: Negative for shortness of breath. Cardiovascular: Negative for chest pain, palpitations and leg swelling. Musculoskeletal: Negative for neck stiffness. Neurological: Negative for tremors, seizures, syncope, facial asymmetry, speech difficulty, weakness, light-headedness and numbness. Psychiatric/Behavioral: Negative for confusion. PAST MEDICAL HISTORY Diagnosis Date Anxiety and depression 12/26/2015 Depression FRACTURE FOOT Hemangioma of liver 12/14/2022 Hydronephrosis 08/25/2002 right hydronephrosis per [place] Marital conflict 02/12/2012 Multinodular goiter 02/18/2012 Obesity, unspecified 05/19/2012 05/19/2012Patient is obese. One-hour GCT drawn today. Panic 02/12/2012 Supervision of high-risk (HCC) 06/13/2012 06/13/12 - RA done - v23 - KK Unspecified essential hypertension 2006 Urinary calculus, unspecified 2001 Renal stones PAST SURGICAL HISTORY Procedure Laterality Date DELIVERY ONLY 12/31/12 , low transverse CHOLECYSTECTOMY 2000 Cholecystectomy DILATION AND CURETTAGE DXAND/THER NONOBSTETRIC 1999 Dilation AND curettage EXTENSIVE FOOT SURGERY 07/2010 Left Foot PAST SURGICAL HISTORY OF 12-24-07 left plantar fasciotomy TONSILLECTOMY PRIMARY/SECONDARY AGE 12/1997 TUBAL LIGATION, 12/31/12 pptl at time of ALLERGIES Grass Pollen and Naprosyn [Naproxen] MEDICATIONS albuterol HFA (PROAIR HFA) 90 mcg/actuation inhalerInhale 2 Puffs as instructed every 6 hours as needed for wheezing/shortness of breath.Disp: 1 EachRfl: 2 lisinopril (ZESTRIL) 10 mg tabletTake 1 tablet by mouth once daily.Disp: 90 tabletRfl: 3 multivitamin tabletTake 1 tablet by mouth once daily.Disp: Rfl: loratadine (CLARITIN) 10 mg tabletTake 1 tablet by mouth once daily.Disp: 14 tabletRfl: 0 ACETAMINOPHEN (TYLENOL ORAL)Take by mouth as needed.Disp: Rfl: SUMAtriptan (IMITREX) 50 mg tabletTake one tablet as needed for migraine/headache. Can repeat in 2 hours if ineffective. No more than 2 tablets in 24 hours.Disp: 6 tabletRfl: 5 ondansetron orally disintegrating (ZOFRAN ODT) 4 mg disintegrating tabletTake 1 tablet by mouth every 8 hours as needed for nausea/vomiting.Disp: 6 tabletRfl: 0 FAMILY HISTORY Problem Relation Age of Onset Cancer Mother LIVER, GALL BLADDER Diabetes Mother borderline blood sugars other (glaucoma [Other]) Maternal Grandmother Cancer Maternal Grandmother Seizures Daughter Asthma Son Social History Tobacco Use Smoking status: Former Current packs/day: 0.00 Types: Cigarettes Start date: 04/28/2010 Quit date: 04/28/2012 Years since quittin.6 Passive exposure: Current Smokeless tobacco: Never Tobacco comments: as a teen Vaping Use Vaping status: Never Used Substance Use Topics Alcohol use: Yes Comment: 1-2 mixed drinks per month Drug use: No BP 122/78 Pulse 84 Resp 12 Wt 136 kg (299 lb 13.2 oz) LMP 02/18/2024 (Exact Date) SpO2 98% BMI 46.96 kg/m? Physical Exam Vitals reviewed. Constitutional: General: She is not in acute distress. Appearance: She is ill-appearing. She is not toxic-appearing. HENT: Head: Normocephalic and atraumatic. Mouth/Throat: Mouth: Mucous membranes are moist. Pharynx: Oropharynx is clear. Eyes: Extraocular Movements: Extraocular movements intact. Conjunctiva/sclera: Conjunctivae normal. Pupils: Pupils are equal, roun (more content not included)...[facility]04-04[facility] History of Present illness Narrative* Barbara Coronado, SENIOR UI UX DEVELOPER.[facility] - 01/01/2025 8:11 AM EDT CC: Patient presents with: Headache: X 3 days HPI The patient consented to the use of [employer] software for draft documentation of the visit consistent with [facility] s Notice of Privacy Practices. Juliane is a 49-year-old female presenting with a severe migraine headache. Juliane reports a migraine that began on Saturday and has progressively worsened, becoming constant today. She describes the pain as primarily throbbing, occasionally stabbing, and affecting her entire head. The intensity is greater than her usual migraines, stating, I feel like my head's just going to explode. She has experienced increased emesis, vomiting twice at work today, which is more frequent than with previous migraines. She denies blurred vision, dizziness, or phonophobia, but notes mild photophobia, stating, these lights are kind of sucking right now. She denies fever, chills, recent head trauma, balance or coordination issues, or paresthesia. She has not had a migraine in several months and is out of Imitrex, which usually provides relief. She has tried ibuprofen, Tylenol, and Excedrin Migraine without relief. She denies recent illnesses such as sinus infections or colds.She has a known allergy to naproxen, which causes emesis. Review of Systems Constitutional: Negative for chills, diaphoresis and fever. HENT: Negative for congestion. Respiratory: Negative for shortness of breath. Cardiovascular: Negative for chest pain, palpitations and leg swelling. Musculoskeletal: Negative for neck stiffness. Neurological: Negative for tremors, seizures, syncope, facial asymmetry, speech difficulty, weakness, light-headedness and numbness. Psychiatric/Behavioral: Negative for confusion. PAST MEDICAL HISTORY Diagnosis Date Anxiety and depression 12/26/2015 Depression FRACTURE FOOT Hemangioma of liver 12/14/2022 Hydronephrosis 08/25/2002 right hydronephrosis per [place] Marital conflict 02/12/2012 Multinodular goiter 02/18/2012 Obesity, unspecified 05/19/2012 05/19/2012Patient is obese. One-hour GCT drawn today. Panic 02/12/2012 Supervision of high-risk (HCC) 06/13/2012 06/13/12 - RA done - v23 - KK Unspecified essential hypertension 2006 Urinary calculus, unspecified 2001 Renal stones PAST SURGICAL HISTORY Procedure Laterality Date DELIVERY ONLY 12/31/12 , low transverse CHOLECYSTECTOMY 2000 Cholecystectomy DILATION & CURETTAGE DX&/THER NONOBSTETRIC 1999 Dilation & curettage EXTENSIVE FOOT SURGERY 07/2010 Left Foot PAST SURGICAL HISTORY OF 12-24-07 left plantar fasciotomy TONSILLECTOMY PRIMARY/SECONDARY AGE 13/> 1997 TUBAL LIGATION, 12/31/12 pptl at time of ALLERGIES Grass Pollen and Naprosyn [Naproxen] MEDICATIONS albuterol HFA (PROAIR HFA) 90 mcg/actuation inhaler^Inhale 2 Puffs as instructed every 6 hours as needed for wheezing/shortness of breath.^Disp: 1 Each^Rfl: 2 lisinopril (ZESTRIL) 10 mg tablet^Take 1 tablet by mouth once daily.^Disp: 90 tablet^Rfl: 3 multivitamin tablet^Take 1 tablet by mouth once daily.^Disp: ^Rfl: loratadine (CLARITIN) 10 mg tablet^Take 1 tablet by mouth once daily.^Disp: 14 tablet^Rfl: 0 ACETAMINOPHEN (TYLENOL ORAL)^Take by mouth as needed.^Disp: ^Rfl: SUMAtriptan (IMITREX) 50 mg tablet^Take one tablet as needed for migraine/headache. Can repeat in 2hours if ineffective. No more than 2 tablets in 24 hours.^Disp: 6 tablet^Rfl: 5 ondansetron orally disintegrating (ZOFRAN ODT) 4 mg disintegrating tablet^Take 1 tablet by mouth every 8 hours as needed for nausea/vomiting.^Disp: 6 tablet^Rfl: 0 FAMILY HISTORY Problem Relation Age of Onset Cancer Mother LIVER, GALL BLADDER Diabetes Mother borderline blood sugars other (glaucoma [Other]) Maternal Grandmother Cancer Maternal Grandmother Seizures Daughter Asthma Son Social History Tobacco Use Smoking status: Former Current packs/day: 0.00 Types: Cigarettes Start date: 04/28/2010 Quit date: 04/28/2012 Years since quittin.6 Passive exposure: Current Smokeless tobacco: Never Tobacco comments: as a teen Vaping Use Vaping status: Never Used Substance Use Topics Alcohol use: Yes Comment: 1-2 mixed drinks per month Drug use: No BP 122/78 Pulse 84 Resp 12 Wt 136 kg (299 lb 13.2 oz) LMP 02/18/2024 (Exact Date) SpO2 98% BMI 46.96 kg/m Physical Exam Vitals reviewed. Constitutional: General: She is not in acute distress. Appearance: She is ill-appearing. She is not toxic-appearing. HENT: Head: Normocephalic and atraumatic. Mouth/Throat: Mouth: Mucous membranes are moist. Pharynx: Oropharynx is clear. Eyes: Extraocular Movements: Extraocular movements intact. Conjunctiva/sclera: Conjunctivae normal. Pupils: Pupils are equal, round, and reactive to light. Cardiovascular: Rate and Rhythm: Normal rate and regular rhythm. Heart sounds: Normal heart sounds. No murmur heard. Pulmonary: Effort: Pulmonary effort is normal. Breath sounds: Normal breath sounds. No wheezing, rhonchi or rales. Musculoskeletal: Cervical back: Normal range of motion and neck supple. No rigidity. Lymphadenopathy: Cervical: No cervical adenopathy. Skin: General: Skin is warm and dry. Neurological: Mental Status: She is alert and oriented to person, place, and time. Cranial Nerves: Cranial nerves 2-12 are intact. Motor: Motor function is intact. Coordination: Coordination is intact. Gait: Gait is intact. Psychiatric: Speech: Speech normal. Behavior: Behavior normal. Behavior is cooperative. Cognition and Memory: Cognition normal. Assessment/Plan 1. Migraine without aura, not intractable, with status migrainosus (G43.001) Severe, throbbing headache involving the entire head, progressively worsening since onset on Saturday. Associated with increased frequency of emesis. No recent migraines for several months. Imitrex usually effective but currently out of medication. No recent illnesses, sinus infections, or head injuries reported. No visual disturbances, dizziness, or coordination issues noted. Neurological exam unremarkable. - Administered Toradol injection to alleviate acute headache symptoms. - Refilled Imitrex prescription; patient to take immediately upon returning home. - Advised patient to contact clinic for Imitrex refill at the onset of future migraines to prevent escalation. - Educated patient on emergency symptoms: slurred speech, facial drooping, unilateral weakness, intractable vomiting, severe headache (10/10), high fever, confusion, syncope. Advised to seek emergency care if these occur. - Instructed to monitor headache progression; if not significantly improved by Saturday, advised to seek emergency care. 2. Nausea and vomiting, unspecified vomiting type (R11.2) Increased frequency of emesis associated with current migraine episode. No new triggers identified. - Prescribed Zofran, to be taken every 8 hours as needed for nausea. Prescription instructions reviewed with patient as applicable. Potential red flag symptoms discussed with the patient. Reviewed appropriate action plan to take if red flag symptoms occur. Patient agreeable to treatment plan. Barbara Coronado APRN.CNP Medical Decision Making: Problems: Moderate: 1+ chronic illnesses with change Risk: Low: Low risk from testing/treatment Moderate: Drug management Medical Decision Making Level: 4 - Moderate documented in this encounter[facility]25 Instructions* Patient Instructions* Barbara Coronado APRN.CNP - 01/01/2025 8:06 AM EDT We discussed your migraine: - I administered a Toradol injection today to help alleviate your headache. While it may not completely resolve the pain, it should make you more comfortable until you can take your Imitrex. 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 Please take it as soon as you get home. - I prescribed Zofran for nausea. Take one tablet every 8 hours as needed. - In the future, if you are out of Imitrex and feel a migraine starting, please call our office fora refill to prevent the headache from worsening. - If your headache is not significantly better by Saturday or if it worsens, please contact our office. If it becomes severe (10/10 pain) or you experience any of the following symptoms, go to the emergency room immediately: - Stroke-like symptoms (slurred speech, facial drooping, weakness on one side of the body). - Persistent vomiting. - High fever. - Confusion or passing out. We provided a work note for today, as requested. Please let us know if you have any further questions or concerns. documented in this encounterMount [facility]12-09-2024 History of Present illness Narrative* Yanelis Yadav RT(R) - 09/07/2024 3:50 PM EST Radiology Service Progress Note PATIENT NAME: Antonia Coronado DATE OF SERVICE: September 07, 2024 TIME: 3:50 PM PATIENT IDENTITY VERIFICATION COMPLETED USING TWO (2) IDENTIFIERS: Name and Date of confirmedby patient verbally. FALL SCREENING: Has the patient had 2 falls in the last year or 1 fall with injury or currently using an Ambulatory Assistive Device (Walker, Cane, Wheelchair, Crutches, etc.)? No PATIENT GENDER DATA: Female. status: : No status: NO. PATIENT RELEVANT IMPLANT DATA REVIEWED: Not Applicable PATIENT PRESENTS WITH AN IMPLANTABLE OR ATTACHED APPLIANCE LINE ASSEMBLER: No RADIOLOGY DEPARTMENT: General X-ray: Exam(s) Completed: Chest X-Ray PERIPHERAL IV DATA: Not applicable SIGNED BY: RT Faustina(R) September 07, 2024 3:50 PM documented in this encounterMount [facility]el [facility]12-09-2024 NoteHNO ID: [id number] Author: YANELIS YADAV RT(R) Service: Radiology Author Type: Technologist Type: Progress Notes Filed: 09/07/2024 15:57 Note Text: Radiology Service Progress Note PATIENT NAME: Antonia Coronado DATE OF SERVICE: September 07, 2024 TIME: 3:50 PM PATIENT IDENTITY VERIFICATION COMPLETED USING TWO (2) IDENTIFIERS: Name and Date of confirmed by patient verbally. FALL SCREENING: Has the patient had 2 falls in the last year or 1 fall with injury or currently using an Ambulatory Assistive Device (Walker, Cane, Wheelchair, Crutches, etc.)? No PATIENT GENDER DATA: Female. status: : No status: NO. PATIENT RELEVANT IMPLANT DATA REVIEWED: Not Applicable PATIENT PRESENTS WITH AN IMPLANTABLE OR ATTACHED APPLIANCE LINE ASSEMBLER: No RADIOLOGY DEPARTMENT: General X-ray: Exam(s) Completed: Chest X-Ray PERIPHERAL IV DATA: Not applicable SIGNED BY: RT Faustina(R) September 07, 2024 3:[address] [facility]12-09-2024 NoteHNO ID: [id number] Author: ZOE RAYA APRN.METHODS ANALYST Service: ? Author Type: Nurse Practitioner Type: Progress Notes Filed: 09/07/2024 17:31 Note Text: This note was created using NoteWriter. Subjective Antonia Coronado is a 48 year old female. 48 year old female with PMH HTN, bronchospasm, anxiety and depression presents for illness. Acute onset 3 weeks ago +cough Non productive +chest congestion +chills Denies CP Denies hemoptysis Denies dyspnea Denies fever Seen 08/24/24 by PCP COVID negative Suryaon Yesica Denies tobacco usage The history is provided by the patient. No record searcher was used. Cough This is a new problem. The current episode started more than 1 week ago. The problem occurs constantly. The problem has been gradually worsening. The cough is Non-productive. There has been no fever. Associated symptoms include chills, ear congestion, rhinorrhea, shortness of breath and wheezing. Pertinent negatives include no chest pain, no sweats, no weight loss, no ear pain, no headaches, no sore throat, no myalgias and no eye redness. She has tried nothing for the symptoms. She is not a smoker. Her past medical history does not include bronchitis, pneumonia, bronchiectasis, COPD, emphysema or asthma. PAST MEDICAL HISTORY Diagnosis Date Anxiety and depression 12/26/2015 Depression FRACTURE FOOT Hemangioma of liver 12/14/2022 Hydronephrosis 08/25/2002 right hydronephrosis per [place] Marital conflict 02/12/2012 Multinodular goiter 02/18/2012 Obesity, unspecified 05/19/2012 05/19/2012Patient is obese. One-hour GCT drawn today. Panic 02/12/2012 Supervision of high-risk 06/13/2012 06/13/12 - RA done - v23 - KK Unspecified essential hypertension 2006 Urinary calculus, unspecified 2001 Renal stones PAST SURGICAL HISTORY Procedure Laterality Date DELIVERY ONLY 12/31/12 , low transverse CHOLECYSTECTOMY 2000 Cholecystectomy DILATION AND CURETTAGE DXAND/THER NONOBSTETRIC 1999 Dilation AND curettage EXTENSIVE FOOT SURGERY 07/2010 Left Foot PAST SURGICAL HISTORY OF 12-24-07 left plantar fasciotomy TONSILLECTOMY PRIMARY/SECONDARY AGE 12/1997 TUBAL LIGATION, 12/31/12 pptl at time of ALLERGIES Grass Pollen and Naprosyn [Naproxen] MEDICATIONS albuterol HFA (PROAIR HFA) 90 mcg/actuation inhaler Inhale 2 Puffs as instructed every 6 hours as needed for wheezing/shortness of breath. lisinopril (ZESTRIL) 10 mg tablet Take 1 tablet by mouth once daily. SUMAtriptan (IMITREX) 50 mg tablet Take one tablet as needed for migraine/headache. Can repeat in 2 hours if ineffective. No more than 2 tablets in 24 hours. multivitamin tablet Take 1 tablet by mouth once daily. ACETAMINOPHEN (TYLENOL ORAL) Take by mouth as needed. doxycycline (VIBRA-TABS) 100 mg tablet Take 1 tablet by mouth two times a day for 10 days. predniSONE (DELTASONE) 10 mg tablet Take 4 tabs daily for 3 days, then 2 tabs daily for 3 days, then 1 tab daily for 3 days with food. Benzonatate 200 mg capsule Take 1 capsule by mouth three times a day as needed. (Patient not taking: Reported on 09/07/2024) loratadine (CLARITIN) 10 mg tablet Take 1 tablet by mouth once daily. (Patient taking differently: Take 10 mg by mouth as needed.) FAMILY HISTORY Problem Relation Age of Onset Cancer Mother LIVER, GALL BLADDER Diabetes Mother borderline blood sugars other (glaucoma [Other]) Maternal Grandmother Cancer Maternal Grandmother Seizures Daughter Asthma Son Social History Tobacco Use Smoking status: Former Current packs/day: 0.00 Types: Cigarettes Start date: 04/28/2010 Quit date: 04/28/2012 Years since quittin.3 Passive exposure: Current Smokeless tobacco: Never Tobacco comments: as a teen Vaping Use Vaping status: Never Used Substance Use Topics Alcohol use: Yes Comment: 1-2 mixed drinks per month Drug use: No Review of Systems Constitutional: Positive for chills. Negative for weight loss. HENT: Positive for congestion, postnasal drip, rhinorrhea, sinus pressure and sinus pain. Negative for ear pain and sore throat. Eyes: Negative for pain, discharge, redness and itching. Respiratory: Positive for cough, shortness of breath and wheezing. Cardiovascular: Negative for chest pain. Gastrointestinal: Negative for abdominal pain, diarrhea, nausea and vomiting. Musculoskeletal: Negative for back pain and myalgias. Skin: Negative for color change, pallor, rash and wound. Allergic/Immunologic: Negative for environmental allergies, food allergies and immunocompromised state. Neurological: Negative for dizziness, facial asymmetry and headaches. Hematological: Negative for adenopathy. Psychiatric/Behavioral: Negative for agitation and behavioral problems. Objective BP 120/70 Pulse 73 Temp 36.9 ?C (98.5 ?F) Resp 20 Wt 131.9 kg (290 lb 12.6 oz) LMP 02/18/2024 (Exact Date (more content not included)...[facility]12-09-2024 History of Present illness Narrative* Zoe Raya, ERIK.METHODS ANALYST - 09/07/2024 3:44 PM EST This note was created using NoteWriter. Subjective Antonia Coronado is a 48 year old female. 48 year old female with PMH HTN, bronchospasm, anxiety and depression presents for illness. Acute onset 3 weeks ago +cough Non productive +chest congestion +chills Denies CP Denies hemoptysis Denies dyspnea Denies fever Seen 08/24/24 by PCP COVID negative Lynda Robert Denies tobacco usage The history is provided by the patient. No record searcher was used. Cough This is a new problem. The current episode started more than 1 week ago. The problem occurs constantly. The problem has been gradually worsening. The cough is Non-productive. There has been no fever.Associated symptoms include chills, ear congestion, rhinorrhea, shortness of breath and wheezing. Pertinent negatives include no chest pain, no sweats, no weight loss, no ear pain, no headaches, no sore throat, no myalgias and no eye redness. She has tried nothing for the symptoms. She is not a smoker. Her past medical history does not include bronchitis, pneumonia, bronchiectasis, COPD, emphysema or asthma. PAST MEDICAL HISTORY Diagnosis Date Anxiety and depression 12/26/2015 Depression FRACTURE FOOT Hemangioma of liver 12/14/2022 Hydronephrosis 08/25/2002 right hydronephrosis per [place] Marital conflict 02/12/2012 Multinodular goiter 02/18/2012 Obesity, unspecified 05/19/2012 05/19/2012Patient is obese. One-hour GCT drawn today. Panic 02/12/2012 Supervision of high-risk 06/13/2012 06/13/12 - RA done - v23 - KK Unspecified essential hypertension 2006 Urinary calculus, unspecified 2001 Renal stones PAST SURGICAL HISTORY Procedure Laterality Date DELIVERY ONLY 12/31/12 , low transverse CHOLECYSTECTOMY 2000 Cholecystectomy DILATION & CURETTAGE DX&/THER NONOBSTETRIC 1999 Dilation & curettage EXTENSIVE FOOT SURGERY 07/2010 Left Foot PAST SURGICAL HISTORY OF 12-24-07 left plantar fasciotomy TONSILLECTOMY PRIMARY/SECONDARY AGE 12/1997 TUBAL LIGATION, 12/31/12 pptl at time of ALLERGIES Grass Pollen and Naprosyn [Naproxen] MEDICATIONS albuterol HFA (PROAIR HFA) 90 mcg/actuation inhaler Inhale 2 Puffs as instructed every 6 hours as needed for wheezing/shortness of breath. lisinopril (ZESTRIL) 10 mg tablet Take 1 tablet by mouth once daily. SUMAtriptan (IMITREX) 50 mg tablet Take one tablet as needed for migraine/headache. Can repeat in 2hours if ineffective. No more than 2 tablets in 24 hours. multivitamin tablet Take 1 tablet by mouth once daily. ACETAMINOPHEN (TYLENOL ORAL) Take by mouth as needed. doxycycline (VIBRA-TABS) 100 mg tablet Take 1 tablet by mouth two times a day for 10 days. predniSONE (DELTASONE) 10 mg tablet Take 4 tabs daily for 3 days, then 2 tabs daily for 3 days, then 1 tab daily for 3 days with food. Benzonatate 200 mg capsule Take 1 capsule by mouth three times a day as needed. (Patient not taking: Reported on 09/07/2024) loratadine (CLARITIN) 10 mg tablet Take 1 tablet by mouth once daily. (Patient taking differently: Take 10 mg by mouth as needed.) FAMILY HISTORY Problem Relation Age of Onset Cancer Mother LIVER, GALL BLADDER Diabetes Mother borderline blood sugars other (glaucoma [Other]) Maternal Grandmother Cancer Maternal Grandmother Seizures Daughter Asthma Son Social History Tobacco Use Smoking status: Former Current packs/day: 0.00 Types: Cigarettes Start date: 04/28/2010 Quit date: 04/28/2012 Years since quittin.3 Passive exposure: Current Smokeless tobacco: Never Tobacco comments: as a teen Vaping Use Vaping status: Never Used Substance Use Topics Alcohol use: Yes Comment: 1-2 mixed drinks per month Drug use: No Review of Systems Constitutional: Positive for chills. Negative for weight loss. HENT: Positive for congestion, postnasal drip, rhinorrhea, sinus pressure and sinus pain. Negative for ear pain and sore throat. Eyes: Negative for pain, discharge, redness and itching. Respiratory: Positive for cough, shortness of breath and wheezing. Cardiovascular: Negative for chest pain. Gastrointestinal: Negative for abdominal pain, diarrhea, nausea and vomiting. Musculoskeletal: Negative for back pain and myalgias. Skin: Negative for color change, pallor, rash and wound. Allergic/Immunologic: Negative for environmental allergies, food allergies and immunocompromised state. Neurological: Negative for dizziness, facial asymmetry and headaches. Hematological: Negative for adenopathy. Psychiatric/Behavioral: Negative for agitation and behavioral problems. Objective BP 120/70 Pulse 73 Temp 36.9 C (98.5 F) Resp 20 Wt 131.9 kg (290 lb 12.6 oz) LMP 02/18/2024 (Exact Date) SpO2 99% BMI 45.54 kg/m Physical Exam Vitals and nursing note reviewed. Constitutional: General: She is not in acute distress. Appearance: Normal appearance. She is normal weight. She is not ill-appearing, toxic-appearing or diaphoretic. HENT: Head: Normocephalic and atraumatic. Right Ear: Ear canal and external ear normal. Left Ear: Ear canal and external ear normal. Nose: Congestion present. No rhinorrhea. Mouth/Throat: Mouth: Mucous membranes are moist. Pharynx: Posterior oropharyngeal erythema present. No oropharyngeal exudate. Eyes: General: Right eye: No discharge. Left eye: No discharge. Extraocular Movements: Extraocular movements intact. Conjunctiva/sclera: Conjunctivae normal. Pupils: Pupils are equal, round, and reactive to light. Cardiovascular: Rate and Rhythm: Normal rate and regular rhythm. Pulses: Normal pulses. Heart sounds: Normal heart sounds. No murmur heard. No friction rub. Pulmonary: Effort: Pulmonary effort is normal. No respiratory distress. Breath sounds: No stridor. Wheezing and rhonchi present. No rales. Chest: Chest wall: No tenderness. Abdominal: General: Abdomen is flat. There is no distension. Palpations: Abdomen is soft. There is no mass. Tenderness: There is no abdominal tenderness. There is no right CVA tenderness, left CVA tenderness, guarding or rebound. Hernia: No hernia is present. Musculoskeletal: General: No swelling, tenderness, deformity or signs of injury. Normal range of motion. Cervical back: Normal range of motion and neck supple. No rigidity. Right lower leg: No edema. Left lower leg: No edema. Lymphadenopathy: Cervical: Cervical adenopathy present. Skin: General: Skin is warm and dry. Capillary Refill: Capillary refill takes less than 2 seconds. Coloration: Skin is not jaundiced or pale. Findings: No bruising, erythema, lesion or rash. Neurological: General: No focal deficit present. Mental Status: She is alert and oriented to person, place, and time. Cranial Nerves: No cranial nerve deficit. Sensory: No sensory deficit. Motor: No weakness. Coordination: Coordination normal. Gait: Gait normal. Psychiatric: Mood and Affect: Mood normal. Behavior: Behavior normal. Thought Content: Thought content normal. Judgment: Judgment normal. Assessment and Plan ASSESSMENT/PLAN: 1. Acute cough - ICD9: 786.2, ICD10: R05.1 (primary diagnosis) X 3 weeks Worsening Lungs with wheeze and rhonchi noted No red flags - XR CHEST 2V FRONTAL/LAT-negative 2. Lower respiratory infection - ICD9: 519.8, ICD10: J22 X 3 weeks Progressively worsening No red flags Will treat with Doxy RX Prednisone F/U with PCP Zoe Raya APRN.METHODS ANALYST documented in this encounterMount [facility]11-25-2024 Instructions* Patient Instructions* Barbara Coronado APRN.MODESTA - 08/24/2024 2:47 PM EST Call office in one week if respiratory symptoms don't improve or sooner if worsening documented in this encounterMount [facility]11-25-2024 History of Present illness Narrative* Barbara Croonado APRN.CNP - 08/24/2024 2:35 PM EST CC: Patient presents with: Follow Up: Blood pressure, cough and chest congestion for 2 days HPI Antonia Coronado is a 48 year old female who presents today for above. HTN-Medication changes:No Taking all medications as prescribed: Yes Side effects: No Home BP's: No Denies: headache, chest pain, palpitations, dyspnea, and peripheral edema. Last 3 Encounter BP Readings: Date: BP: 08/24/2024 112/78 05/01/2024 133/79 03/03/2024 118/72 Respiratory infection: Symptoms began two days ago and are worsening Symptoms include: Temperature elevation: No Chills: Yes Cough: Yes, dry and non-productive Shortness of breath: Yes Fatigue: Yes Muscle aches: No Headache: No New loss of smell or taste: No Sore throat: No Nasal congestion: Yes Rhinorrhea: Yes Nausea and/or vomiting: No Diarrhea: No Other Associated symptoms: none. PMH: asthma OTC meds/remedies that patient has tried: OTC cold medicine. Exposures: Sick contacts? Yes, daughter had URI Family or close contacts with confirmed/probable COVID-19 in last 14 days? No Home COVID test: No Review of Systems See HPI PAST MEDICAL HISTORY Diagnosis Date Anxiety and depression 12/26/2015 Depression FRACTURE FOOT Hemangioma of liver 12/14/2022 Hydronephrosis 08/25/2002 right hydronephrosis per [place] Marital conflict 02/12/2012 Multinodular goiter 02/18/2012 Obesity, unspecified 05/19/2012 05/19/2012Patient is obese. One-hour GCT drawn today. Panic 02/12/2012 Supervision of high-risk 06/13/2012 06/13/12 - done - v23 - KK Unspecified essential hypertension 2006 Urinary calculus, unspecified 2001 Renal stones PAST SURGICAL HISTORY Procedure Laterality Date DELIVERY ONLY 12/31/12 , low transverse CHOLECYSTECTOMY 2000 Cholecystectomy DILATION & CURETTAGE DX&/THER NONOBSTETRIC 1999 Dilation & curettage EXTENSIVE FOOT SURGERY 07/2010 Left Foot PAST SURGICAL HISTORY OF 12-24-07 left plantar fasciotomy TONSILLECTOMY PRIMARY/SECONDARY AGE 13/> 1997 TUBAL LIGATION, 12/31/12 pptl at time of ALLERGIES Grass Pollen and Naprosyn [Naproxen] MEDICATIONS albuterol HFA (PROAIR HFA) 90 mcg/actuation inhaler Inhale 2 Puffs as instructed every 6 hours as needed for wheezing/shortness of breath. lisinopril (ZESTRIL) 10 mg tablet Take 1 tablet by mouth once daily. SUMAtriptan (IMITREX) 50 mg tablet Take one tablet as needed for migraine/headache. Can repeat in 2hours if ineffective. No more than 2 tablets in 24 hours. multivitamin tablet Take 1 tablet by mouth once daily. loratadine (CLARITIN) 10 mg tablet Take 1 tablet by mouth once daily. (Patient taking differently: Take 10 mg by mouth as needed.) ACETAMINOPHEN (TYLENOL ORAL) Take by mouth as needed. topiramate (TOPAMAX) 25 mg tablet Take 1 tablet by mouth daily at bedtime. FAMILY HISTORY Problem Relation Age of Onset Cancer Mother LIVER, GALL BLADDER Diabetes Mother borderline blood sugars other (glaucoma [Other]) Maternal Grandmother Cancer Maternal Grandmother Seizures Daughter Asthma Son Social History Tobacco Use Smoking status: Former Current packs/day: 0.00 Types: Cigarettes Start date: 04/28/2010 Quit date: 04/28/2012 Years since quittin.3 Passive exposure: Current Smokeless tobacco: Never Tobacco comments: as a teen Vaping Use Vaping status: Never Used Substance Use Topics Alcohol use: Yes Comment: 1-2 mixed drinks per month Drug use: No BP 112/78 (BP Site: Left Arm) Pulse 91 Temp 37 C (98.6 F) Ht 170.2 cm (5' 7) Wt 130.6 kg (287 lb 14.7 oz) LMP 02/18/2024 (Exact Date) SpO2 97% BMI 45.09 kg/m Physical Exam Vitals reviewed. Constitutional: General: She is not in acute distress. Appearance: She is ill-appearing. She is not toxic-appearing. HENT: Head: Normocephalic and atraumatic. Right Ear: Tympanic membrane normal. Left Ear: Tympanic membrane normal. Mouth/Throat: Lips: [place]. Mouth: Mucous membranes are moist. Pharynx: Oropharynx is clear. Eyes: Conjunctiva/sclera: Conjunctivae normal. Cardiovascular: Rate and Rhythm: Normal rate and regular rhythm. Heart sounds: Normal heart sounds. No murmur heard. Pulmonary: Effort: Pulmonary effort is normal. Breath sounds: Normal breath sounds. No wheezing, rhonchi or rales. Lymphadenopathy: Cervical: No cervical adenopathy. Skin: General: Skin is warm and dry. Neurological: Mental Status: She is alert. Psychiatric: Mood and Affect: Mood normal. Health maintenance reviewed with patient: BP Controlled (<130/80) Never done Hepatitis B Vaccine(1 of 3 - 19+ 3-dose series) Never done Influenza Vaccine(1) due on 05/31/2024 Covid-19 Vaccine(2023- season) due on 05/31/2024 Annual PCP Team Chronic Disease Visit due on 02/18/2025 Mammogram Screening due on 04/10/2025 Colorectal Cancer Screening due on 12/12/2025 Diabetes Screening due on 12/02/2026 Cervical Cancer Screening due on 12/11/2027 Lipid Screening due on 11/23/2028 DTaP,Tdap,Td Vaccine(4 - Td or Tdap) due on 03/11/2029 Hepatitis C Screening Completed HIV Screening Completed DATA REVIEWED: Most recent labs ASSESSMENT/PLAN: 1. Viral URI with cough - ICD9: 465.9, ICD10: J06.9 (primary diagnosis) - Discussed viral etiology and rationale for treatment. - Symptomatic treatment with prn analgesia - Supportive care with fluids and rest - The patient may also use Tessalon Perles as needed. - Follow up in one week if symptoms persist or sooner if worsening of symptoms - COVID & INFLUENZA A/B & RSV PCR, ROUTINE 2. Primary hypertension - ICD9: 401.9, ICD10: I10 - Controlled - Continue current medications - Recommend home blood pressure monitoring, to bring results to next visit - Encouraged sodium restriction, DASH or Mediterranean diet - COMPREHENSIVE METABOLIC PANEL - LIPID PANEL BASIC - COMPLETE BLOOD COUNT 3. Hyperglycemia - ICD9: 790.29, ICD10: R73.9 Labs to recheck in 6 months - HEMOGLOBIN A1C 4. Obesity, Class III, BMI >= 40 - ICD9: 278.01, ICD10: E66.01 Weight decreasing 5. Anxiety and depression - ICD9: 300.00, 311, ICD10: F41.9, F32.A Stable off medication Prescription instructions reviewed with patient as applicable. Potential red flag symptoms discussed with the patient. Reviewed appropriate action plan to take if red flag symptoms occur. Patient agreeable to treatment plan. Barbara Coronado APRN.METHODS ANALYST documented in this encounterMount Carmel [facility]11-25-2024 NoteHNO ID: [id number] Author: BARBARA CORONADO APRN.METHODS ANALYST Service: ? Author Type: Nurse Practitioner Type: Progress Notes Filed: 08/24/2024 15:00 Note Text: CC: Patient presents with: Follow Up: Blood pressure, cough and chest congestion for 2 days HPI Antonia Coronado is a 48 year old female who presents today for above. HTN-Medication changes:No Taking all medications as prescribed: Yes Side effects: No Home BP's: No Denies: headache, chest pain, palpitations, dyspnea, and peripheral edema. Last 3 Encounter BP Readings: Date: BP: 08/24/2024 112/78 05/01/2024 133/79 03/03/2024 118/72 Respiratory infection: Symptoms began two days ago and are worsening Symptoms include: Temperature elevation: No Chills: Yes Cough: Yes, dry and non-productive Shortness of breath: Yes Fatigue: Yes Muscle aches: No Headache: No New loss of smell or taste: No Sore throat: No Nasal congestion: Yes Rhinorrhea: Yes Nausea and/or vomiting: No Diarrhea: No Other Associated symptoms: none. PMH: asthma OTC meds/remedies that patient has tried: OTC cold medicine. Exposures: Sick contacts? Yes, daughter had URI Family or close contacts with confirmed/probable COVID-19 in last 14 days? No Home COVID test: No Review of Systems See HPI PAST MEDICAL HISTORY Diagnosis Date Anxiety and depression 12/26/2015 Depression FRACTURE FOOT Hemangioma of liver 12/14/2022 Hydronephrosis 08/25/2002 right hydronephrosis per [place] Marital conflict 02/12/2012 Multinodular goiter 02/18/2012 Obesity, unspecified 05/19/2012 05/19/2012Patient is obese. One-hour GCT drawn today. Panic 02/12/2012 Supervision of high-risk 06/13/2012 06/13/12 - RA done - v23 - KK Unspecified essential hypertension 2006 Urinary calculus, unspecified 2001 Renal stones PAST SURGICAL HISTORY Procedure Laterality Date DELIVERY ONLY 12/31/12 , low transverse CHOLECYSTECTOMY 2000 Cholecystectomy DILATION AND CURETTAGE DXAND/THER NONOBSTETRIC 1999 Dilation AND curettage EXTENSIVE FOOT SURGERY 07/2010 Left Foot PAST SURGICAL HISTORY OF 12-24-07 left plantar fasciotomy TONSILLECTOMY PRIMARY/SECONDARY AGE 12/1997 TUBAL LIGATION, 12/31/12 pptl at time of ALLERGIES Grass Pollen and Naprosyn [Naproxen] MEDICATIONS albuterol HFA (PROAIR HFA) 90 mcg/actuation inhaler Inhale 2 Puffs as instructed every 6 hours as needed for wheezing/shortness of breath. lisinopril (ZESTRIL) 10 mg tablet Take 1 tablet by mouth once daily. SUMAtriptan (IMITREX) 50 mg tablet Take one tablet as needed for migraine/headache. Can repeat in 2 hours if ineffective. No more than 2 tablets in 24 hours. multivitamin tablet Take 1 tablet by mouth once daily. loratadine (CLARITIN) 10 mg tablet Take 1 tablet by mouth once daily. (Patient taking differently: Take 10 mg by mouth as needed.) ACETAMINOPHEN (TYLENOL ORAL) Take by mouth as needed. topiramate (TOPAMAX) 25 mg tablet Take 1 tablet by mouth daily at bedtime. FAMILY HISTORY Problem Relation Age of Onset Cancer Mother LIVER, GALL BLADDER Diabetes Mother borderline blood sugars other (glaucoma [Other]) Maternal Grandmother Cancer Maternal Grandmother Seizures Daughter Asthma Son Social History Tobacco Use Smoking status: Former Current packs/day: 0.00 Types: Cigarettes Start date: 04/28/2010 Quit date: 04/28/2012 Years since quittin.3 Passive exposure: Current Smokeless tobacco: Never Tobacco comments: as a teen Vaping Use Vaping status: Never Used Substance Use Topics Alcohol use: Yes Comment: 1-2 mixed drinks per month Drug use: No BP 112/78 (BP Site: Left Arm) Pulse 91 Temp 37 ?C (98.6 ?F) Ht 170.2 cm (5' 7) Wt 130.6 kg (287 lb 14.7 oz) LMP 02/18/2024 (Exact Date) SpO2 97% BMI 45.09 kg/m? Physical Exam Vitals reviewed. Constitutional: General: She is not in acute distress. Appearance: She is ill-appearing. She is not toxic-appearing. HENT: Head: Normocephalic and atraumatic. Right Ear: Tympanic membrane normal. Left Ear: Tympanic membrane normal. Mouth/Throat: Lips: [place]. Mouth: Mucous membranes are moist. Pharynx: Oropharynx is clear. Eyes: Conjunctiva/sclera: Conjunctivae normal. Cardiovascular: Rate and Rhythm: Normal rate and regular rhythm. Heart sounds: Normal heart sounds. No murmur heard. Pulmonary: Effort: Pulmonary effort is normal. Breath sounds: Normal breath sounds. No wheezing, rhonchi or rales. Lymphadenopathy: Cervical: No cervical adenopathy. Skin: General: Skin is warm and dry. Neurological: Mental Status: She is alert. Psychiatric: Mood and Affect: Mood normal. Health maintenance reviewed with patient: BP Controlled (<130/80) Never done Hepatitis B Vaccine(1 of 3 - 19+ 3-dose series) Never done Influenza Vaccine(1) due on 05/31/2024 Covid-19 Vaccine(2023- season) due on 05/31/2024 (more content not included)...[facility]08-02-2024 NoteHNO ID: [id number] Author: ZOE RAYA APRN.METHODS ANALYST Service: ? Author Type: Nurse Practitioner Type: Progress Notes Filed: 05/01/2024 18:25 Note Text: This note was created using NoteWriter. Subjective Antonia Coronado is a 48 year old female. 48 year old female with PMH asthma, HTN, anxiety and depression presents for illness. Acute onset yesterday +sore throat +white spot +headache Feels like I swallowed glass Denies eye, ear or nose Denies cough Denies N/V/D Denies fever or chills Used allergy pills yesterday Used Tylenol, without relief. The history is provided by the patient. No record searcher was used. Sore Throat This is a new problem. The current episode started yesterday. The problem has been unchanged. Neither side of throat is experiencing more pain than the other. There has been no fever. The pain is at a severity of 5/10. The pain is moderate. Associated symptoms include swollen glands. Pertinent negatives include no abdominal pain, congestion, coughing, diarrhea, drooling, ear discharge, ear pain, headaches, hoarse voice, plugged ear sensation, neck pain, shortness of breath, stridor, trouble swallowing or vomiting. She has had no exposure to strep or mono. She has tried acetaminophen for the symptoms. The treatment provided no relief. PAST MEDICAL HISTORY 12/26/2015: Anxiety and depression No date: Depression No date: FRACTURE Comment: FOOT 12/14/2022: Hemangioma of liver 08/25/2002: Hydronephrosis Comment: right hydronephrosis per [place] 02/12/2012: Marital conflict 02/18/2012: Multinodular goiter 05/19/2012: Obesity, unspecified Comment: 05/19/2012Patient is obese. One-hour GCT drawn today. 02/12/2012: Panic 06/13/2012: Supervision of high-risk Comment: 06/13/12 - RA done - v23 - KK 2007: Unspecified essential hypertension 2001: Urinary calculus, unspecified Comment: Renal stones PAST SURGICAL HISTORY 12/31/12: DELIVERY ONLY Comment: , low transverse 2000: CHOLECYSTECTOMY Comment: Cholecystectomy 1999: DILATION AND CURETTAGE DXAND/THER NONOBSTETRIC Comment: Dilation AND curettage 07/2010: EXTENSIVE FOOT SURGERY Comment: Left Foot 12-24-07: PAST SURGICAL HISTORY OF Comment: left plantar fasciotomy 1997: TONSILLECTOMY PRIMARY/SECONDARY AGE 13/> 4//13: TUBAL LIGATION, Comment: pptl at time of ALLERGIES Grass Pollen and Naprosyn [Naproxen] MEDICATIONS albuterol HFA (PROAIR HFA) 90 mcg/actuation inhaler Inhale 2 Puffs as instructed every 6 hours as needed for wheezing/shortness of breath. topiramate (TOPAMAX) 25 mg tablet Take 1 tablet by mouth daily at bedtime. lisinopril (ZESTRIL) 10 mg tablet Take 1 tablet by mouth once daily. SUMAtriptan (IMITREX) 50 mg tablet Take one tablet as needed for migraine/headache. Can repeat in 2 hours if ineffective. No more than 2 tablets in 24 hours. multivitamin tablet Take 1 tablet by mouth once daily. loratadine (CLARITIN) 10 mg tablet Take 1 tablet by mouth once daily. ACETAMINOPHEN (TYLENOL ORAL) Take by mouth as needed. FAMILY HISTORY Problem Relation Age of Onset Cancer Mother LIVER, GALL BLADDER Diabetes Mother borderline blood sugars other (glaucoma [Other]) Maternal Grandmother Cancer Maternal Grandmother Seizures Daughter Asthma Son Social History Tobacco Use Smoking status: Former Years: 2 Types: Cigarettes Quit date: 04/28/2012 Years since quittin.0 Passive exposure: Current Smokeless tobacco: Never Tobacco comments: as a teen Vaping Use Vaping Use: Never used Substance Use Topics Alcohol use: Yes Comment: 1-2 mixed drinks per month Drug use: No Review of Systems Constitutional: Negative for activity change, appetite change, chills and diaphoresis. HENT: Positive for sore throat. Negative for congestion, drooling, ear discharge, ear pain, hoarse voice and trouble swallowing. Respiratory: Negative for apnea, cough, shortness of breath and stridor. Cardiovascular: Negative for chest pain, palpitations and leg swelling. Gastrointestinal: Negative for abdominal pain, diarrhea and vomiting. Musculoskeletal: Negative for neck pain. Allergic/Immunologic: Negative for environmental allergies, food allergies and immunocompromised state. Neurological: Negative for headaches. Hematological: Positive for adenopathy. Does not bruise/bleed easily. Psychiatric/Behavioral: Negative for agitation and behavioral problems. Objective BP 133/79 Pulse 74 Temp 36.6 ?C (97.9 ?F) Resp 18 Wt 134.4 kg (296 lb 4.8 oz) LMP 02/18/2024 (Exact Date) SpO2 98% BMI 47.82 kg/m? Physical Exam Vitals and nursing note reviewed. Constitutional: General: She is not in acute distress. Appearance: Normal appearance. She is normal weight. She is not ill-appearing, toxic-appearing or diaphoretic. HENT: Head: Normocephalic and atraumatic. Right Ear: Ear canal and ext (more content not included)...[facility]08-02-2024 History of Present illness Narrative* Zoe Raya, ERIK.METHODS ANALYST - 05/01/2024 6:11 PM EDT This note was created using NoteWriter. Subjective Antonia Coronado is a 48 year old female. 48 year old female with PMH asthma, HTN, anxiety and depression presents for illness. Acute onset yesterday +sore throat +white spot +headache Feels like I swallowed glass Denies eye, ear or nose Denies cough Denies N/V/D Denies fever or chills Used allergy pills yesterday Used Tylenol, without relief. The history is provided by the patient. No record searcher was used. Sore Throat This is a new problem. The current episode started yesterday. The problem has been unchanged. Neither side of throat is experiencing more pain than the other. There has been no fever. The pain is at a severity of 5/10. The pain is moderate. Associated symptoms include swollen glands. Pertinent negatives include no abdominal pain, congestion, coughing, diarrhea, drooling, ear discharge, ear pain, headaches, hoarse voice, plugged ear sensation, neck pain, shortness of breath, stridor, trouble swallowing or vomiting. She has had no exposure to strep or mono. She has tried acetaminophen for the symptoms. The treatment provided no relief. PAST MEDICAL HISTORY 12/26/2015: Anxiety and depression No date: Depression No date: FRACTURE Comment: FOOT 12/14/2022: Hemangioma of liver 08/25/2002: Hydronephrosis Comment: right hydronephrosis per [place] 02/12/2012: Marital conflict 02/18/2012: Multinodular goiter 05/19/2012: Obesity, unspecified Comment: 05/19/2012Patient is obese. One-hour GCT drawn today. 02/12/2012: Panic 06/13/2012: Supervision of high-risk Comment: 06/13/12 - RA done - v23 - KK 2007: Unspecified essential hypertension 2001: Urinary calculus, unspecified Comment: Renal stones PAST SURGICAL HISTORY 12/31/12: DELIVERY ONLY Comment: , low transverse 2000: CHOLECYSTECTOMY Comment: Cholecystectomy 1999: DILATION & CURETTAGE DX&/THER NONOBSTETRIC Comment: Dilation & curettage 07/2010: EXTENSIVE FOOT SURGERY Comment: Left Foot 12-24-07: PAST SURGICAL HISTORY OF Comment: left plantar fasciotomy 1997: TONSILLECTOMY PRIMARY/SECONDARY AGE 13/> 12/31/12: TUBAL LIGATION, Comment: pptl at time of ALLERGIES Grass Pollen and Naprosyn [Naproxen] MEDICATIONS albuterol HFA (PROAIR HFA) 90 mcg/actuation inhaler Inhale 2 Puffs as instructed every 6 hours as needed for wheezing/shortness of breath. topiramate (TOPAMAX) 25 mg tablet Take 1 tablet by mouth daily at bedtime. lisinopril (ZESTRIL) 10 mg tablet Take 1 tablet by mouth once daily. SUMAtriptan (IMITREX) 50 mg tablet Take one tablet as needed for migraine/headache. Can repeat in 2hours if ineffective. No more than 2 tablets in 24 hours. multivitamin tablet Take 1 tablet by mouth once daily. loratadine (CLARITIN) 10 mg tablet Take 1 tablet by mouth once daily. ACETAMINOPHEN (TYLENOL ORAL) Take by mouth as needed. FAMILY HISTORY Problem Relation Age of Onset Cancer Mother LIVER, GALL BLADDER Diabetes Mother borderline blood sugars other (glaucoma [Other]) Maternal Grandmother Cancer Maternal Grandmother Seizures Daughter Asthma Son Social History Tobacco Use Smoking status: Former Years: 2 Types: Cigarettes Quit date: 04/28/2012 Years since quittin.0 Passive exposure: Current Smokeless tobacco: Never Tobacco comments: as a teen Vaping Use Vaping Use: Never used Substance Use Topics Alcohol use: Yes Comment: 1-2 mixed drinks per month Drug use: No Review of Systems Constitutional: Negative for activity change, appetite change, chills and diaphoresis. HENT: Positive for sore throat. Negative for congestion, drooling, ear discharge, ear pain, hoarse voice and trouble swallowing. Respiratory: Negative for apnea, cough, shortness of breath and stridor. Cardiovascular: Negative for chest pain, palpitations and leg swelling. Gastrointestinal: Negative for abdominal pain, diarrhea and vomiting. Musculoskeletal: Negative for neck pain. Allergic/Immunologic: Negative for environmental allergies, food allergies and immunocompromised state. Neurological: Negative for headaches. Hematological: Positive for adenopathy. Does not bruise/bleed easily. Psychiatric/Behavioral: Negative for agitation and behavioral problems. Objective BP 133/79 Pulse 74 Temp 36.6 C (97.9 F) Resp 18 Wt 134.4 kg (296 lb 4.8 oz) LMP 02/18/2024 (Exact Date) SpO2 98% BMI 47.82 kg/m Physical Exam Vitals and nursing note reviewed. Constitutional: General: She is not in acute distress. Appearance: Normal appearance. She is normal weight. She is not ill-appearing, toxic-appearing or diaphoretic. HENT: Head: Normocephalic and atraumatic. Right Ear: Ear canal and external ear normal. Left Ear: Ear canal and external ear normal. Nose: Nose normal. No congestion or rhinorrhea. Mouth/Throat: Mouth: Mucous membranes are moist. Pharynx: Posterior oropharyngeal erythema (1 + bilateral +exudate. Uvula midline) present. No oropharyngeal exudate. Eyes: General: Right eye: No discharge. Left eye: No discharge. Extraocular Movements: Extraocular movements intact. Conjunctiva/sclera: Conjunctivae normal. Pupils: Pupils are equal, round, and reactive to light. Cardiovascular: Rate and Rhythm: Normal rate and regular rhythm. Pulses: Normal pulses. Heart sounds: Normal heart sounds. No murmur heard. No friction rub. Pulmonary: Effort: Pulmonary effort is normal. No respiratory distress. Breath sounds: Normal breath sounds. No stridor. No wheezing, rhonchi or rales. Chest: Chest wall: No tenderness. Abdominal: General: Abdomen is flat. There is no distension. Palpations: Abdomen is soft. There is no mass. Tenderness: There is no abdominal tenderness. There is no right CVA tenderness, left CVA tenderness, guarding or rebound. Hernia: No hernia is present. Musculoskeletal: General: No swelling, tenderness, deformity or signs of injury. Normal range of motion. Cervical back: Normal range of motion and neck supple. No rigidity. Right lower leg: No edema. Left lower leg: No edema. Lymphadenopathy: Cervical: Cervical adenopathy present. Skin: General: Skin is warm and dry. Capillary Refill: Capillary refill takes less than 2 seconds. Coloration: Skin is not jaundiced or pale. Findings: No bruising, erythema, lesion or rash. Neurological: General: No focal deficit present. Mental Status: She is alert and oriented to person, place, and time. Cranial Nerves: No cranial nerve deficit. Sensory: No sensory deficit. Motor: No weakness. Coordination: Coordination normal. Gait: Gait normal. Psychiatric: Mood and Affect: Mood normal. Behavior: Behavior normal. Thought Content: Thought content normal. Judgment: Judgment normal. Assessment and Plan ASSESSMENT/PLAN: 1. URI, acute - ICD9: 465.9, ICD10: J06.9 X 1 day No red flag - Discussed viral etiology and rationale for treatment. - Group A strep molecular testing negative - Symptomatic treatment with prn analgesia - Supportive care with fluids and rest - The patient may also use OTC cough and cold meds as needed, warm salt water gargles, throat lozenges and/or OTC throat spray as needed, and nasal saline gtts and suction prn. - Follow up in 3-5 days if symptoms persist or sooner if worsening of symptoms Zoe Raya APRN.METHODS ANALYST documented in this encounter[facility] Note* Letter - Coordinator, Mammography - 04/11/2024 6:48 PM EDT April 13, 2024 PID: [id number] Antonia Coronado [address] [place] [address] [place] [address] Dear Ms. Coronado, We are pleased to inform you that the results of your recent breast imaging exam on 04/10/2024 are normal. Breast tissue can be either dense or not dense. Dense tissue makes it harder to find breast cancer on a mammogram and also raises the risk of developing breast cancer. Your breast tissue is not dense. Talk to your healthcare provider about breast density, risks for breast cancer, and your individual situation. Early detection of cancer is very important. We also understand recommendations regarding breast cancer screening are controversial. Please discuss with your primary care provider which strategy is best for you and whether a mammogram is right for you. Your imaging studies and report will be kept on file at [facility] as part of your permanent medical record and are available for your continuing care. Thank you for allowing us to help in meeting your health care needs. Sincerely, Dr. Reina Interpreting Radiologist [facility] (Normal over 40) [facility]07-13-2024 Miscellaneous Notes* Letter - Coordinator, Mammography - 04/11/2024 6:48 PM EDT April 13, 2024 PID: [id number] Antonia Coronado [address] [place] [address] Dear Ms. Coronado, We are pleased to inform you that the results of your recent breast imaging exam on 04/10/2024 are normal. Breast tissue can be either dense or not dense. Dense tissue makes it harder to find breast cancer on a mammogram and also raises the risk of developing breast cancer. Your breast tissue is not dense. Talk to your healthcare provider about breast density, risks for breast cancer, and your individual situation. Early detection of cancer is very important. We also understand recommendations regarding breast cancer screening are controversial. Please discuss with your primary care provider which strategy is best for you and whether a mammogram is right for you. Your imaging studies and report will be kept on file at [facility] as part of your permanent medical record and are available for your continuing care. Thank you for allowing us to help in meeting your health care needs. Sincerely, Dr. Reina Interpreting Radiologist [facility] (Normal over 40) documented in this encounterMount [facility]07-12-2024 History of Present illness Narrative* José Mary Mammo Tech - 04/10/2024 2:50 PM EDT Radiology Service Progress Note PATIENT NAME: Antonia Coronado DATE OF SERVICE: April 10, 2024 TIME: 2:50 PM PATIENT IDENTITY VERIFICATION COMPLETED USING TWO (2) IDENTIFIERS: Name and Date of confirmedby patient verbally. FALL SCREENING: Has the patient had 2 falls in the last year or 1 fall with injury or currently using an Ambulatory Assistive Device (Walker, Cane, Wheelchair, Crutches, etc.)? No PATIENT GENDER DATA: Female. status: : No status: NO. PATIENT RELEVANT IMPLANT DATA REVIEWED: Not Applicable PATIENT PRESENTS WITH AN IMPLANTABLE OR ATTACHED APPLIANCE LINE ASSEMBLER: No RADIOLOGY DEPARTMENT: Mammography PERIPHERAL IV DATA: Not applicable SIGNED BY: Monica Hortao Umair April 10, 2024 2:50 PM documented in this encounterMount [facility]06-04-2024 History of Present illness Narrative* Juana Cruz APRN.METHODS ANALYST - 03/03/2024 12:56 PM EDT Logistics Team Lead offered: Patient declines. Juliane is a 48 year old who presents for an annual gynecologic exam without complaints. 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 One-hour GCT drawn today. Panic 02/12/2012 Supervision of high-risk 06/13/2012 06/13/12 - RA done - v23 - KK Unspecified essential hypertension 2006 Urinary calculus, unspecified 2001 Renal stones PAST SURGICAL HISTORY Procedure Laterality Date DELIVERY ONLY 12/31/12 , low transverse CHOLECYSTECTOMY 2000 Cholecystectomy DILATION & CURETTAGE DX&/THER NONOBSTETRIC 1999 Dilation & curettage EXTENSIVE FOOT SURGERY 07/2010 Left Foot PAST SURGICAL HISTORY OF 12-24-07 left plantar fasciotomy TONSILLECTOMY PRIMARY/SECONDARY AGE 13/> 1997 TUBAL LIGATION, 12/31/12 pptl at time of FAMILY HISTORY Problem Relation Age of Onset Cancer Mother LIVER, GALL BLADDER Diabetes Mother borderline blood sugars other (glaucoma [Other]) Maternal Grandmother Cancer Maternal Grandmother Seizures Daughter Asthma Son SOCIAL HISTORY Social History Tobacco Use Smoking status: Former Years: 2 Types: Cigarettes Quit date: 04/28/2012 Years since quittin.8 Passive exposure: Current Smokeless tobacco: Never Tobacco comments: as a teen Vaping Use Vaping Use: Never used Substance Use Topics Alcohol use: Yes Comment: 1-2 mixed drinks per month Drug use: No REVIEW OF SYSTEMS Abdomen: No abdominal pain, nausea, vomiting, diarrhea, or constipation. No bloating, early satiety, indigestion, or increased flatulence. Bladder: No dysuria, gross hematuria, urinary frequency, urinary urgency, or incontinence. Breast: No breast lumps, nipple d/c, overlying skin changes, redness or skin retraction. Allergies and current medication updated:Yes EXAM: Ht 5' 6 (1.68m) Wt 298 lb (135.2kg) LMP 02/18/2024 BMI 48.12 kg/(m^2). GENERAL: pleasant, female in no apparent distress HEENT: Normocephalic, atraumatic, mucus membranes moist, and no lesions NECK: Supple, full range of motion, no adenopathy, and thyroid normal DERMATOLOGY: Normal, without lesions, non-icteric, and non-hirsute BREAST: soft, non-tender, symmetric, no dominant mass, normal nipple-areolar complex, no lymphadenopathy, and no nipple discharge CHEST: Normal inspiratory effort ABDOMEN: soft, non-tender, and no masses PELVIC: external genitalia normal, normal Bartholin's glands, urethra, [place]'s glands, no vulvar lesions, no cervical lesions, physiologic discharge present, normal appearing perineal body and perianal region BIMANUAL: uterus normal size, shape and consistency, no adnexal masses, and non-tender RECTOVAGINAL: deferred. NEURO: alert and oriented x3,exam grossly non-focal EXTREMITIES: normal ASSESSMENT/PLAN: 1) Health maintenance: Pap/HPV up to date. Mammogram ordered. Nutrition, exercise and routine health maintenance exams reviewed. Calcium/Vitamin D supplementation information provided. 2) Contraception: tubal sterilization. Contraceptive options reviewed and information provided. 3) STD screening: Declined STD check. 4) Follow up one year or sooner as needed Juana Cruz APRN.MODESTA documented in this encounterMount [facility]05-22-2024 History of Present illness Narrative* Sonny, Barbara Rodríguez APRN.MODESTA - 02/19/2024 3:14 PM EDT CC: Patient presents with: F/U HTN 3 Month HPI Antonia Coronado is a 48 year old female who presents today for above. HTN-Medication changes:No Taking all medications as prescribed: Yes Side effects: No Home BP's: Yes 110's/60's Denies: headache, chest pain, palpitations, dyspnea, and peripheral edema. Last 3 Encounter BP Readings: Date: BP: 02/19/2024 130/76 12/25/2023 119/83 11/20/2023 126/88 Review of Systems See HPI PAST MEDICAL HISTORY Diagnosis Date Anxiety and depression 12/26/2015 Depression FRACTURE FOOT Hemangioma of liver 12/14/2022 Hydronephrosis 08/25/2002 right hydronephrosis per [place] Marital conflict 02/12/2012 Multinodular goiter 02/18/2012 Obesity, unspecified 05/19/2012 05/19/2012Patient is obese. One-hour GCT drawn today. Panic 02/12/2012 Supervision of high-risk 06/13/2012 06/13/12 - done - v23 - KK Unspecified essential hypertension 2006 Urinary calculus, unspecified 2001 Renal stones PAST SURGICAL HISTORY Procedure Laterality Date DELIVERY ONLY 12/31/12 , low transverse CHOLECYSTECTOMY 2000 Cholecystectomy DILATION & CURETTAGE DX&/THER NONOBSTETRIC 1999 Dilation & curettage EXTENSIVE FOOT SURGERY 07/2010 Left Foot PAST SURGICAL HISTORY OF 12-24-07 left plantar fasciotomy TONSILLECTOMY PRIMARY/SECONDARY AGE 121997 TUBAL LIGATION, 12/31/12 pptl at time of ALLERGIES Grass Pollen and Naprosyn [Naproxen] MEDICATIONS topiramate (TOPAMAX) 25 mg tablet Take 1 tablet by mouth daily at bedtime. lisinopril (ZESTRIL) 10 mg tablet Take 1 tablet by mouth once daily. SUMAtriptan (IMITREX) 50 mg tablet Take one tablet as needed for migraine/headache. Can repeat in 2hours if ineffective. No more than 2 tablets in 24 hours. multivitamin tablet Take 1 tablet by mouth once daily. albuterol HFA (PROAIR HFA) 90 mcg/actuation inhaler Inhale 2 Puffs as instructed every 6 hours as needed for wheezing/shortness of breath. loratadine (CLARITIN) 10 mg tablet Take 1 tablet by mouth once daily. ACETAMINOPHEN (TYLENOL ORAL) Take by mouth as needed. FAMILY HISTORY Problem Relation Age of Onset Cancer Mother LIVER, GALL BLADDER Diabetes Mother borderline blood sugars other (glaucoma [Other]) Maternal Grandmother Cancer Maternal Grandmother Seizures Daughter Asthma Son Social History Tobacco Use Smoking status: Former Years: 2 Types: Cigarettes Quit date: 04/28/2012 Years since quittin.8 Smokeless tobacco: Never Tobacco comments: as a teen Vaping Use Vaping Use: Never used Substance Use Topics Alcohol use: Yes Comment: 1-2 mixed drinks per month Drug use: No BP 130/76 (BP Site: Left Arm, BP Position: Sitting, BP Cuff Size: Large Adult) Pulse 87 Resp 14 Ht 167.6 cm (5' 6) Wt (!) 137 kg (302 lb) LMP 01/09/2023 (Exact Date) SpO2 97% BMI 48.74kg/m Physical Exam Vitals reviewed. Constitutional: Appearance: Normal appearance. Cardiovascular: Rate and Rhythm: Normal rate and regular rhythm. Pulses: Normal pulses. Heart sounds: Normal heart sounds. No murmur heard. Pulmonary: Effort: Pulmonary effort is normal. Breath sounds: Normal breath sounds. No wheezing, rhonchi or rales. Neurological: Mental Status: She is alert. Psychiatric: Mood and Affect: Mood normal. DATA REVIEWED: Most recent labs ASSESSMENT/PLAN: 1. Primary hypertension - ICD9: 401.9, ICD10: I10 - Controlled - Continue current medications - Recommend home blood pressure monitoring, to bring results to next visit - Encouraged sodium restriction, DASH or Mediterranean diet - Follow up in 6 months for hypertension visit Prescription instructions reviewed with patient as applicable. Potential red flag symptoms discussed with the patient. Reviewed appropriate action plan to take if red flag symptoms occur. Patient agreeable to treatment plan. Barbara Coronado APRN.MODESTA documented in this encounterMount [facility]02-21-2024 History of Present illness Narrative* Barbara Coronado APRN.CNP - 11/20/2023 3:01 PM EST CC Patient presents with: BP Check HPI Antonia Coronado is a 47 year old female who presents to the office for blood pressure. Her visit today is for follow-up. Patient was last seen for this approximately 2 months ago. Newly diagnosed with hypertension and started on Lisinopril 10 mg daily Taking all medications as prescribed: Yes Side effects: No Home BP's: Yes sporadically, last was couple weeks ago and can't recall what it was Denies: headache, chest pain, palpitations, dyspnea, and peripheral edema. Last 4 Encounter BP Readings: Date: BP: 11/20/2023 126/88 09/16/2023 138/92 06/12/2023 145/83 05/15/2023 136/90 Last 3 Encounter Wt Readings: Date: Wt: 11/20/2023 136.2 kg (300 lb 4.8 oz) 09/16/2023 133.8 kg (295 lb) 06/12/2023 135.8 kg (299 lb 6.4 oz) Review of Systems See HPI PAST MEDICAL HISTORY Diagnosis Date Anxiety and depression 12/26/2015 Depression FRACTURE FOOT Hemangioma of liver 12/14/2022 Hydronephrosis 08/25/2002 right hydronephrosis per [place] Marital conflict 02/12/2012 Multinodular goiter 02/18/2012 Obesity, unspecified 05/19/2012 05/19/2012Patient is obese. One-hour GCT drawn today. Panic 02/12/2012 Supervision of high-risk 06/13/2012 06/13/12 - RA done - v23 - KK Unspecified essential hypertension 2006 Urinary calculus, unspecified 2001 Renal stones PAST SURGICAL HISTORY Procedure Laterality Date DELIVERY ONLY 12/31/12 , low transverse CHOLECYSTECTOMY 2000 Cholecystectomy DILATION & CURETTAGE DX&/THER NONOBSTETRIC 1999 Dilation & curettage EXTENSIVE FOOT SURGERY 07/2010 Left Foot PAST SURGICAL HISTORY OF 12-24-07 left plantar fasciotomy TONSILLECTOMY PRIMARY/SECONDARY AGE 12/1997 TUBAL LIGATION, 12/31/12 pptl at time of ALLERGIES Grass Pollen and Naprosyn [Naproxen] MEDICATIONS topiramate (TOPAMAX) 25 mg tablet Take 1 tablet by mouth daily at bedtime. lisinopril (ZESTRIL) 10 mg tablet Take 1 tablet by mouth once daily. SUMAtriptan (IMITREX) 50 mg tablet Take one tablet as needed for migraine/headache. Can repeat in 2hours if ineffective. No more than 2 tablets in 24 hours. multivitamin tablet Take 1 tablet by mouth once daily. albuterol HFA (PROAIR HFA) 90 mcg/actuation inhaler Inhale 2 Puffs as instructed every 6 hours as needed for wheezing/shortness of breath. loratadine (CLARITIN) 10 mg tablet Take 1 tablet by mouth once daily. ACETAMINOPHEN (TYLENOL ORAL) Take by mouth as needed. benzonatate (TESSALON PERLES) 100 mg capsule Take 2 capsules by mouth three times daily as needed. (Patient not taking: Reported on 11/20/2023) IBUPROFEN ORAL Take by mouth. (Patient not taking: Reported on 11/20/2023) FAMILY HISTORY Problem Relation Age of Onset Cancer Mother LIVER, GALL BLADDER Diabetes Mother borderline blood sugars other (glaucoma [Other]) Maternal Grandmother Cancer Maternal Grandmother Seizures Daughter Asthma Son Social History Tobacco Use Smoking status: Former Years: 2 Types: Cigarettes Quit date: 04/28/2012 Years since quittin.5 Smokeless tobacco: Never Tobacco comments: as a teen Vaping Use Vaping Use: Never used Substance Use Topics Alcohol use: Yes Comment: 1-2 mixed drinks per month Drug use: No BP 126/88 (BP Site: Left Arm, BP Position: Sitting, BP Cuff Size: Large Adult) Pulse 101 Resp 16 Wt (!) 136.2 kg (300 lb 4.8 oz) LMP 01/09/2023 (Exact Date) SpO2 98% BMI 47.74 kg/m Physical Exam Vitals reviewed. Constitutional: Appearance: Normal appearance. Cardiovascular: Rate and Rhythm: Normal rate and regular rhythm. Pulses: Normal pulses. Heart sounds: Normal heart sounds. No murmur heard. Pulmonary: Effort: Pulmonary effort is normal. Breath sounds: Normal breath sounds. No wheezing, rhonchi or rales. Skin: General: Skin is warm and dry. Neurological: Mental Status: She is alert. Psychiatric: Mood and Affect: Mood normal. DATA REVIEWED: Most recent labs ASSESSMENT/PLAN: 1. Primary hypertension - ICD9: 401.9, ICD10: I10 - Improving control - Continue current medications - Recommend home blood pressure monitoring, to bring results to next visit - Encouraged sodium restriction, DASH or Mediterranean diet - Recommend regular aerobic exercise - Discussed need for and benefit of weight loss. BMI 47.74 kg/(m^2) - Follow up in 3 months for hypertension visit - LIPID PANEL BASIC - COMP METABOLIC PANEL - CBC Prescription instructions reviewed with patient as applicable. Potential red flag symptoms discussed with the patient. Reviewed appropriate action plan to take if red flag symptoms occur. Patient agreeable to treatment plan Barbara Coronado APRN.METHODS ANALYST documented in this encounterMount Carmel Health System10-04-2023 Miscellaneous Notes* Telephone Encounter - Sae Cross Ma - 07/03/2023 8:06 AM EDT Pt notified via [employer] to call and schedule. * Telephone Encounter - Loretta Byrd - 07/01/2023 8:44 AM EDT 2nd call attempt, left vm * Telephone Encounter - Loretta Byrd - 06/29/2023 1:11 PM EDT 1st call attempt, left vm * Telephone Encounter - Carlee Su - 06/27/2023 8:18 AM EDT The referral is still pending. * Telephone Encounter - Sae Cross Ma - 06/26/2023 3:58 PM EDT Can this be addressed please? * Telephone Encounter - Zoe Weir - 06/19/2023 10:15 AM EDT MRI is all booked next week. I will contact [facility] to see if they can edit referral or I will create new referral. RENU Alvarado * Telephone Encounter - Cynthia Dorsey MA - 06/18/2023 5:42 PM EDT Referral expires 06/27/23. Is there anything available next week? Cynthia Dorsey MA * Telephone Encounter - Elly Crockett - 06/18/2023 4:49 PM EDT Patient had to cancel her scheduled MRI of her ABD for this week due to being sick, She would like to reschedule but the referral will before the next available appointment. Please place new order/referral for the MRI to get approved and advise patient on when she can schedule. documented in this encounterMount Carmel [facility] System09-13-2023 History of Present illness Narrative* Haydee Gramajo PA-C - 06/12/2023 11:44 AM EDT This note was created using Weblioter. Subjective Antonia Coronado is a 47 year old female. HPI Patient presents with a chief complaint of cough, shortness of breath, wheezing over the past week.She states it does hurt in her ribs when she coughs. She does have a history of asthma and has an inhaler at home. She has been using it the past few days but did not seem to be helping. She is vaccinated for COVID. Her daughter did test positive recently. She has not done a home test. No diarrhea o r vomiting. She states last time she had COVID she had a cough for a month. Was not hospitalized. Review of Systems Constitutional: Positive for fatigue. HENT: Positive for congestion, rhinorrhea and sore throat. Negative for ear pain. Respiratory: Positive for cough, chest tightness, shortness of breath and wheezing. Cardiovascular: Negative. Gastrointestinal: Negative. Genitourinary: Negative. Musculoskeletal: Negative. All other systems reviewed and are negative. PAST MEDICAL HISTORY Diagnosis Date Anxiety and depression 12/26/2015 Depression FRACTURE FOOT Hemangioma of liver 12/14/2022 Hydronephrosis 08/25/2002 right hydronephrosis per [place] Marital conflict 02/12/2012 Multinodular goiter 02/18/2012 Obesity, unspecified 05/19/2012 05/19/2012Patient is obese. One-hour GCT drawn today. Panic 02/12/2012 Supervision of high-risk 06/13/2012 06/13/12 - RA done - v23 - KK Unspecified essential hypertension 2007 Urinary calculus, unspecified 2001 Renal stones Current Outpatient Medications Medication Sig Dispense Refill predniSONE (DELTASONE) 20 mg tablet Take 2 tablets by mouth once daily for 5 days. 10 tablet 0 benzonatate (TESSALON PERLES) 100 mg capsule Take 2 capsules by mouth three times daily as needed. 30 capsule 0 SUMAtriptan (IMITREX) 50 mg tablet Take one tablet as needed for migraine/headache. Can repeat in 2hours if ineffective. No more than 2 tablets in 24 hours. 6 tablet 1 LORazepam (ATIVAN) 0.5 mg Take 1 tablet by mouth three times daily as needed (anxiety) for up to 30days. Sparing use 15 tablet 0 topiramate (TOPAMAX) 25 mg tablet Take 1 tablet by mouth daily at bedtime. 90 tablet 1 multivitamin tablet Take 1 tablet by mouth once daily. albuterol HFA (PROAIR HFA) 90 mcg/actuation inhaler Inhale 2 Puffs as instructed every 6 hours as needed for wheezing/shortness of breath. 1 Inhaler 2 loratadine (CLARITIN) 10 mg tablet Take 1 tablet by mouth once daily. 14 tablet 0 IBUPROFEN ORAL Take by mouth. ACETAMINOPHEN (TYLENOL ORAL) Take by mouth as needed. No current facility-administered medications for this visit. PAST SURGICAL HISTORY Procedure Laterality Date DELIVERY ONLY 12/31/12 , low transverse CHOLECYSTECTOMY 2000 Cholecystectomy DILATION & CURETTAGE DX&/THER NONOBSTETRIC 1999 Dilation & curettage EXTENSIVE FOOT SURGERY 07/2010 Left Foot PAST SURGICAL HISTORY OF 12-24-07 left plantar fasciotomy TONSILLECTOMY PRIMARY/SECONDARY AGE 12/1997 TUBAL LIGATION, 12/31/12 pptl at time of FAMILY HISTORY Problem Relation Age of Onset Cancer Mother LIVER, GALL BLADDER Diabetes Mother borderline blood sugars other (glaucoma [Other]) Maternal Grandmother Cancer Maternal Grandmother Seizures Daughter Asthma Son Social History Tobacco Use Smoking status: Former Years: 2 Types: Cigarettes Quit date: 04/28/2012 Years since quittin.1 Smokeless tobacco: Never Tobacco comments: as a teen Vaping Use Vaping Use: Never used Substance Use Topics Alcohol use: Yes Comment: 1-2 mixed drinks per month Drug use: No Objective BP 145/83 Pulse 77 Temp 36.3 C (97.3 F) Resp 20 Wt 135.8 kg (299 lb 6.4 oz) LMP 01/09/2023 (Exact Date) SpO2 99% BMI 47.60 kg/m Physical Exam Vitals reviewed. Constitutional: Appearance: Normal appearance. HENT: Head: Normocephalic and atraumatic. Right Ear: Tympanic membrane, ear canal and external ear normal. Left Ear: Tympanic membrane, ear canal and external ear normal. Nose: Congestion present. Mouth/Throat: Mouth: Mucous membranes are moist. Pharynx: Oropharynx is clear. Cardiovascular: Rate and Rhythm: Normal rate and regular rhythm. Heart sounds: Normal heart sounds. Pulmonary: Effort: Pulmonary effort is normal. Breath sounds: Normal breath sounds. Musculoskeletal: Cervical back: Neck supple. Lymphadenopathy: Cervical: No cervical adenopathy. Skin: General: Skin is warm and dry. Neurological: General: No focal deficit present. Mental Status: She is alert and oriented to person, place, and time. Assessment and Plan ASSESSMENT/PLAN: 1. Suspected COVID-19 virus infection - ICD9: V01.79, ICD10: Z20.822 Chest x-ray clear. I feel she does have bronchitis likely secondary to COVID. Oxygenating well, hasalbuterol inhaler at home. Discussed I will send prednisone and Tessalon for symptoms. Follow-up with PCP if not improving. Red flags discussed for ER treatment. She is past the window for oral antiviral treatment. - COVID & INFLUENZA A/B NAAT, ROUTINE - XR CHEST 2V FRONTAL/LAT - PREDNISONE 20 MG TABLET - BENZONATATE 100 MG CAPSULE Haydee Gramajo PA-C documented in this encounterMount Carmel Health System09-13-2023 History of Present illness Narrative* Merline Trevino RT(R) - 06/12/2023 10:50 AM EDT Radiology Service Progress Note PATIENT NAME: Antonia Coronado DATE OF SERVICE: June 12, 2023 TIME: 10:42 AM PATIENT IDENTITY VERIFICATION COMPLETED USING TWO (2) IDENTIFIERS: Name and Date of confirmedby patient verbally. FALL SCREENING: Has the patient had 2 falls in the last year or 1 fall with injury or currently using an Ambulatory Assistive Device (Walker, Cane, Wheelchair, Crutches, etc.)? No PATIENT GENDER DATA: Female. status: : No status: NO. PATIENT RELEVANT IMPLANT DATA REVIEWED: Yes RADIOLOGY DEPARTMENT: General X-ray: Exam(s) Completed: Chest X-Ray PERIPHERAL IV DATA: Not applicable SIGNED BY: RT Sarika(Azeem) June 12, 2023 10:42 AM documented in this encounterMount Carmel Health System08-16-2023 History of Present illness Narrative* Barbara Gracia APRN.METHODS ANALYST - 05/15/2023 4:05 PM EDT CC: Patient presents with: F/U 6 months HPI Antonia Coronado is a 47 year old female who presents today for above. Anxiety- significantly worse the past couple weeks since her son was [place]. Doing well prior to this. She has had a few panic attacks that were disabling. Denies depression. Migraines- she was only getting about one a month with addition of Topamax until increase in stress. Now getting 3-4 times a month. Imitrex is effective and works quickly. No new or worsening symptoms. REVIEW OF SYSTEMS GENERAL: Negative for malaise, significant weight loss and fever RESPIRATORY: Negative for cough, wheezing and shortness of breath CARDIOVASCULAR: Negative for chest pain, leg swelling and palpitations PAST MEDICAL HISTORY Diagnosis Date Anxiety and depression 12/26/2015 Depression FRACTURE FOOT Hemangioma of liver 12/14/2022 Hydronephrosis 08/25/2002 right hydronephrosis per [place] Marital conflict 02/12/2012 Multinodular goiter 02/18/2012 Obesity, unspecified 05/19/2012 05/19/2012Patient is obese. One-hour GCT drawn today. Panic 02/12/2012 Supervision of high-risk 06/13/2012 06/13/12 - RA done - v23 - KK Unspecified essential hypertension 2006 Urinary calculus, unspecified 2001 Renal stones PAST SURGICAL HISTORY Procedure Laterality Date DELIVERY ONLY 12/31/12 , low transverse CHOLECYSTECTOMY 2000 Cholecystectomy DILATION & CURETTAGE DX&/THER NONOBSTETRIC 1999 Dilation & curettage EXTENSIVE FOOT SURGERY 07/2010 Left Foot PAST SURGICAL HISTORY OF 12-24-07 left plantar fasciotomy TONSILLECTOMY PRIMARY/SECONDARY AGE 12/1997 TUBAL LIGATION, 12/31/12 pptl at time of ALLERGIES Grass Pollen, Ivory [Other], and Naprosyn [Naproxen] MEDICATIONS topiramate (TOPAMAX) 25 mg tablet Take 1 tablet by mouth daily at bedtime. predniSONE (DELTASONE) 10 mg tablet Take 2 tabs po BID for 2 days then 1 tab po BID for 2 days then1/2 tab po BID for 2 days then 1/2 tab daily for 2 days then stop multivitamin tablet Take 1 tablet by mouth once daily. SUMAtriptan (IMITREX) 50 mg tablet Take one tablet as needed for migraine/headache. Can repeat in 2hours if ineffective. No more than 2 tablets in 24 hours. albuterol HFA (PROAIR HFA) 90 mcg/actuation inhaler Inhale 2 Puffs as instructed every 6 hours as needed for wheezing/shortness of breath. loratadine (CLARITIN) 10 mg tablet Take 1 tablet by mouth once daily. IBUPROFEN ORAL Take by mouth. ACETAMINOPHEN (TYLENOL ORAL) Take by mouth as needed. FAMILY HISTORY Problem Relation Age of Onset Cancer Mother LIVER, GALL BLADDER Diabetes Mother borderline blood sugars other (glaucoma [Other]) Maternal Grandmother Cancer Maternal Grandmother Seizures Daughter Asthma Son Social History Tobacco Use Smoking status: Former Years: 2 Types: Cigarettes Quit date: 04/28/2012 Years since quittin.0 Smokeless tobacco: Never Tobacco comments: as a teen Vaping Use Vaping Use: Never used Substance Use Topics Alcohol use: Yes Comment: 1-2 mixed drinks per month Drug use: No PHYSICAL EXAM BP 136/90 Pulse 90 Resp 14 Wt 134.3 kg (296 lb) LMP 01/09/2023 (Exact Date) BMI 47.06 kg/m General Appearance: well appearing, in no acute distress, alert Pysch: affect is anxious Lungs: Lungs clear to auscultation. No wheezing, rhonchi, rales. Heart: RRR without murmur, gallop, or rubs. No ectopy Health maintenance reviewed with patient: HEPATITIS B(1 of 3 - 3-dose series) Never done INFLUENZA(1) due on 05/31/2023 MAMMOGRAM due on 11/15/2023 DIABETES SCREEN due on 05/22/2025 COLORECTAL CANCER SCREENING due on 12/12/2025 LIPID SCREEN due on 03/24/2027 PAP TESTING due on 12/11/2027 HPV TESTING due on 12/11/2027 DTAP,TDAP,TD(4 - Td or Tdap) due on 03/11/2029 HEPATITIS C SCREENING Completed HIV SCREENING Completed COVID-19 VACCINE Completed HPV VACCINE Aged Out DATA REVIEWED: Most recent labs ASSESSMENT/PLAN: 1. Panic attacks - ICD9: 300.01, ICD10: F41.0 (primary diagnosis) Secondary to situational stressors. Will prescribe Ativan, to be used sparingly as needed. Advised patient no refills. Discussed potential for overdose, abuse and addiction; patient verbalized understanding. 2. Elevated blood pressure reading in office without diagnosis of hypertension - ICD9: 796.2, ICD10: R03.0 Likely PreHypertension in addition to stress - Encouraged dietary sodium restriction/DASH diet - Recommend home blood pressure monitoring, to bring results in on next visit - Recheck in 3 months, sooner if needed. - Goal of BP <130/80 3. Migraine without aura and without status migrainosus, not intractable - ICD9: 346.10, ICD10: G43.009 Stable - SUMATRIPTAN 50 MG TABLET 4. Adjustment disorder with anxiety - ICD9: 309.24, ICD10: F43.22 See #1 - LORAZEPAM 0.5 MG TABLET 5. 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 Hemangioma of liver - ICD9: 228.04, ICD10: D18.03 As above - MRI LIVER WO/W IVCON 7. Obesity, Class III, BMI >= 40 - ICD9: 278.01, ICD10: E66.01 - Discussed need for and benefit of weight loss BMI Readings from Last 1 Encounters: 05/15/23 : 47.06 kg/m - Begin healthy diet consisting of fruits, vegetables and lean proteins. Reduce sugary drinks of artificial juices and sodas and replace with water and low calorie Crystal Light. Healthy Snack alternatives have been discussed - Begin exercise or meaningful activity for 20 minutes at lest 3 times a day Prescription instructions reviewed with patient as applicable. Potential red flag symptoms discussed with the patient. Reviewed appropriate action plan to take if red flag symptoms occur. Patient agreeable to treatment plan. Barbara Gracia APRN.CNP documented in this encounterMount Carmel Health System06-06-2023 Miscellaneous Notes* Telephone Encounter - Faith Schrader LPN - 03/05/2023 3:51 PM EDT Patient has been identified by name and date of : Yes Patient phones for refill(s): Requested Prescriptions Pending Prescriptions Disp Refills topiramate (TOPAMAX) 25 mg tablet 90 tablet 1 Sig: Take 1 tablet by mouth daily at bedtime. Date of last office visit in primary care: 02/01/2023 6 month follow-up: 05/15/2023 Last 2 Encounter Wt Readings: Date: Wt: 02/01/2023 130.6 kg (288 lb) 01/25/2023 130.6 kg (288 lb) Previous labs/tests for medication: Not applicable Please advise. Thank you. Faith Schrader LPN documented in this encounterMount Carmel Health System06-05-2023 Miscellaneous Notes* Telephone Encounter - Paige Tan - 03/04/2023 10:34 AM EDT POPULATION HEALTH NAVIGATION OUTREACH Action/I 1st call-LVM and Weimi message for patient regarding ORTHO consult. Patient Identified by Name and : NO Outreach Outcome/Action Unable to reach patient: Left message Greenpiehart message sent Did you use a PCP flex slot to schedule this appointment? N/A Reason for Outreach Care Gap or Scheduling/Wellness visits Payer: Payor: [place] MEDICAID / Plan: [facility] MEDICAID / Product Type: Medicaid / Care Gap Reviewed:: Specialty Scheduling Reminder: Reminder note to check Health Maintenance for items below Health Maintenance items due: HEPATITIS B(1 of 3 - 3-dose series) Never done Navigation Signature: Paige Tan March 04, 2023 10:35 AM documented in this encounterMount Carmel Health System05-12-2023 Miscellaneous Notes* Telephone Encounter - Scarlett Dang LPN - 02/08/2023 9:47 AM EDT Left a detailed message at [facility] regarding knee brace on hold until MRI complete. * Telephone Encounter - Angle Nieto APRN.METHODS ANALYST - 02/08/2023 9:36 AM EDT Okay, we will wait for MRI and then bracing as advised by ortho. * Telephone Encounter - Scarlett Dang LPN - 02/08/2023 9:33 AM EDT Ortho wanted to wait until she has MRI completed so he knows exactly which style she will need. * Telephone Encounter - Scarlett Dang LPN - 02/06/2023 3:26 PM EDT LEFT MESSAGE FOR PATIENT TO CALL OFFICE. * Telephone Encounter - Angle Nieto APRN.CNP - 02/06/2023 3:19 PM EDT Patient was seen by ortho on Saturday, can we check with patient if ortho put her in a brace or what their plan is. Orders for a brace were not sent since follow up with ortho was recommended. * Telephone Encounter - Fransisco Angel MD - 02/06/2023 2:39 PM EDT Patient was seen by Angle. Was this addressed? I did not see this fax regarding braces. * Telephone Encounter - Felecia Medina LPN - 02/04/2023 2:34 PM EDT Loretta from [facility] calling states has faxed over a paper with a few choices for pts brace the kind doctor would be wanting. Says not to worry at all about size she has measured her. Asking if this was received? She faxed it over on My then again on this past Saturday. She is asking to please let her know. documented in this encounterMount Carmel Health System05-05-2023 History of Present illness Narrative* Angle Nieto APRN.METHODS ANALYST - 02/01/2023 9:03 AM EDT SUBJECTIVE Antonia Coronado is a 47 year old female here today for a check up on her medical problems. Chief Complaint Patient presents with: Knee Pain: right knee HPI Antonia Coronado is a 47 year old female who presents today for continued right knee pain. Shewas seen for this on 01/25/2023, see HPI from that visit. In brief she had stepped down at work andfelt her knee pop on 01/24/2023. Pain is the knee below the knee cap and to the back of the knee. Has tried treating with heat, ice, NSAIDs, tylenol, prednisone taper, and tramadol PRN. 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 MRI is scheduled. Since last visit she tried wrapping the knee, not better but not really worse. Stillhaving a lot of pain and limits in mobility. Trying to rest. Tried to walk a block on it yesterday but caused issues with pain for hours, her job requires frequent walking and standing and she cannotcomplete those duties in current condition. Has not got the brace, waiting on insurance. Still no swelling, redness, increased warmth to the joint. Her medications were reviewed today and her list is now up to date. Medications Current Outpatient Medications Medication Sig traMADol (ULTRAM) 50 mg tablet Take 1 tablet by mouth twice daily as needed for pain for up to 7 days. predniSONE (DELTASONE) 10 mg tablet Take 2 tabs po BID for 2 days then 1 tab po BID for 2 days then1/2 tab po BID for 2 days then 1/2 tab daily for 2 days then stop multivitamin tablet Take 1 tablet by mouth once daily. SUMAtriptan (IMITREX) 50 mg tablet Take one tablet as needed for migraine/headache. Can repeat in 2hours if ineffective. No more than 2 tablets in 24 hours. topiramate (TOPAMAX) 25 mg tablet Take 1 tablet by mouth daily at bedtime. albuterol HFA (PROAIR HFA) 90 mcg/actuation inhaler Inhale 2 Puffs as instructed every 6 hours as needed for wheezing/shortness of breath. loratadine (CLARITIN) 10 mg tablet Take 1 tablet by mouth once daily. IBUPROFEN ORAL Take by mouth. ACETAMINOPHEN (TYLENOL ORAL) Take by mouth as needed. HYDROcodone-acetaminophen (NORCO) 5-325 mg per tablet Take 1 tablet by mouth every 6 hours as needed for pain for up to 7 days. No current facility-administered medications for this visit. ALLERGIES Allergen Reactions Grass Pollen CONGESTION, ITCHY EYES Ivory [Other] UNKNOWN REACTION Naprosyn [Naproxen] Vomiting ACTIVE PROBLEM LIST Benign Intraductal Papillary Mucinous Neoplasm of Pancreas - 12/14/2022 Hemangioma of Liver - 12/14/2022 Renal Cyst, Left - 11/13/2022 Obesity, Class III, BMI >= 40 - 03/23/2022 Goiter, Nontoxic, Multinodular - 03/23/2022 Bronchospasm - 03/23/2022 Anxiety and Depression - 12/26/2015 Social History Tobacco Use Smoking status: Former Years: 2.00 Types: Cigarettes Quit date: 04/28/2012 Years since quittin.7 Smokeless tobacco: Never Tobacco comments: as a teen Vaping Use Vaping Use: Never used Substance Use Topics Alcohol use: Yes Comment: 1-2 mixed drinks per month Drug use: No Review of Systems Musculoskeletal: Positive for arthralgias and gait problem. Negative for joint swelling and myalgias. OBJECTIVE BP 124/84 Pulse 90 Wt 288 lb (130.6kg) SpO2 98% LMP 01/09/2023 Physical Exam Vitals and nursing note reviewed. Constitutional: General: She is awake. She is not in acute distress. Appearance: Normal appearance. She is well-developed and well-groomed. She is not ill-appearing, toxic-appearing or diaphoretic. HENT: Head: Normocephalic. Right Ear: External ear normal. Left Ear: External ear normal. Nose: Nose normal. Eyes: General: Vision grossly intact. Conjunctiva/sclera: Conjunctivae normal. Pupils: Pupils are equal, round, and reactive to light. Neck: Vascular: No JVD. Trachea: Trachea normal. Cardiovascular: Pulses: Normal pulses. Pulmonary: Effort: Pulmonary effort is normal. No accessory muscle usage, prolonged expiration or respiratory distress. Musculoskeletal: Cervical back: Neck supple. Right knee: No swelling, deformity, effusion, erythema, ecchymosis, lacerations or crepitus. Decreased range of motion. Tenderness (inferior to knee cap) present. No LCL laxity, MCL laxity, ACL laxity or PCL laxity. Normal alignment and normal patellar mobility. Normal pulse. Instability Tests: Anterior drawer test negative. Posterior drawer test negative. Anterior Jeremiah test negative. Medial Priscilla test positive and lateral Priscilla test positive. Skin: General: Skin is warm and dry. Capillary Refill: Capillary refill takes less than 2 seconds. Neurological: General: No focal deficit present. Mental Status: She is alert and oriented to person, place, and time. Mental status is at baseline. Psychiatric: Attention and Perception: Attention and perception normal. Mood and Affect: Mood and affect normal. Speech: Speech normal. Behavior: Behavior normal. Behavior is cooperative. Thought Content: Thought content normal. Cognition and Memory: Cognition and memory normal. Judgment: Judgment normal. ASSESSMENT/PLAN: 1. Positive Priscilla test of right knee, initial encounter - ICD9: 836.2, ICD10: S83.206A (primary diagnosis) Still with significant pain. Change tramadol to norco, needs to see ortho [facility] for concerns of meniscus tearing. Discussed needs to see ortho sometime next week, earlier rather than later in the week. If cannot get seen with [facility] then try [facility]. Off work at least until seen with ortho. - CONSULT TO ORTHOPAEDICS - HYDROCODONE 5 MG-ACETAMINOPHEN 325 MG TABLET 2. Acute pain of right knee - ICD9: 719.46, ICD10: M25.561 See above. PDMP website checked and validated. All prescriptions have been APPROPRIATELY filled. No suspiciousactivity was identified. 02/01/2023 by Angle Nieto APRN.METHODS ANALYST OARRS reviewed and script is appropriate, non-opioids considered. Patient is aware of risks and benefits of opioid medications and their use, including but not limited to risk for addiction. Advised to take medication as prescribed and adhere to the dosing regimen and to use the least amount necessary for the shortest period of time. Discussed possible side effects including constipation. Advisedto use caution when operating heavy machinery and driving and to never share or sell medication. - HYDROCODONE 5 MG-ACETAMINOPHEN 325 MG TABLET Angle Nieto APRN.METHODS ANALYST Portions of this note have been entered by ancillary staff. I have reviewed and when necessary edited, so that they are an adequate record of my encounter with this patient Please note that parts of this document were created using voice recognition software and therefore may contain grammatical errors. Patient verbalizes understanding of instructions from today's visit and in agreement with treatmentplan. Questions answered. Agrees to call the office if questions, concerns of issues with acute symptoms not improving or if they worsen. See diagnoses and orders for additional plan(s). Allergies and medications were reviewed, list was updated, and refills given if needed. Past medical, surgical, social, and family history reviewed and updated as appropriate. Encouraged proper diet & exercise as well as compliance with taking medications. Age- appropriate health preventative measures were discussed. Return if symptoms worsen or fail to improve, for Keep next scheduled appointment.. Angle Nieto APRN-MODESTA documented in this encounterMount [facility]-2023 Miscellaneous Notes* Telephone Encounter - Angle Nieto APRN.CNP - 02/01/2023 8:29 AM EDT Discuss at appt today documented in this encounterMount Carmel Health System04-28-2023 History of Present illness Narrative* Merline Trevino, RT(R) - 01/25/2023 3:20 PM EDT Radiology Service Progress Note PATIENT NAME: Antonia Coronado DATE OF SERVICE: January 25, 2023 TIME: 3:37 PM PATIENT IDENTITY VERIFICATION COMPLETED USING TWO (2) IDENTIFIERS: Name and Date of confirmedby patient verbally. FALL SCREENING: Has the patient had 2 falls in the last year or 1 fall with injury or currently using an Ambulatory Assistive Device (Walker, Cane, Wheelchair, Crutches, etc.)? No PATIENT GENDER DATA: Female. status: : No status: NO. PATIENT RELEVANT IMPLANT DATA REVIEWED: Yes RADIOLOGY DEPARTMENT: General X-ray: Exam(s) Completed: Lower Extremity X- Ray(s): Knee, AP / Lat / Tunne / Merchant Right and Wt. Bearing PERIPHERAL IV DATA: Not applicable SIGNED BY: RT Sarika(R) January 25, 2023 3:37 PM documented in this encounterMount Carmel Health System04-28-2023 History of Present illness Narrative* Angle Nieto APRN.METHODS ANALYST - 01/25/2023 2:54 PM EDT SUBJECTIVE Antonia Coronado is a 47 year old female here today for acute concerns. Chief Complaint Patient presents with: Knee Injury: WC right knee 01/24/2023 HPI Antonia Coronado is an 47 year old female presents today for right knee pain. She was at work yesterday, works at [employer]. Stepped up on a metal bar to reach higher, about 6 inches off of the ground. Stepped down and then felt knee pop. Can walk on the knee but feels it might give out. No recall of prior injury. No swelling to the joint or redness or increased warmth. It is localized to lower knee, and in back of knee. It does not really radiate. It is constant with aching but at times sharp and stabbing. It has been alleviated by nothing, has tried heat, ice, NSAIDs and tylenol and aggravated by walking, putting weight on it. Severity is 6-7 on average but sharp pain is 8-9/10. Denies num bness, tingling, weakness. Went to work today and worked with the pain but pain was very bothersomewhile working so came in for appointment today. Her medications were reviewed today and her list is now up to date. Medications Current Outpatient Medications Medication Sig multivitamin tablet Take 1 tablet by mouth once daily. SUMAtriptan (IMITREX) 50 mg tablet Take one tablet as needed for migraine/headache. Can repeat in 2hours if ineffective. No more than 2 tablets in 24 hours. topiramate (TOPAMAX) 25 mg tablet Take 1 tablet by mouth daily at bedtime. albuterol HFA (PROAIR HFA) 90 mcg/actuation inhaler Inhale 2 Puffs as instructed every 6 hours as needed for wheezing/shortness of breath. loratadine (CLARITIN) 10 mg tablet Take 1 tablet by mouth once daily. IBUPROFEN ORAL Take by mouth. ACETAMINOPHEN (TYLENOL ORAL) Take by mouth as needed. traMADol (ULTRAM) 50 mg tablet Take 1 tablet by mouth twice daily as needed for pain for up to 7 days. predniSONE (DELTASONE) 10 mg tablet Take 2 tabs po BID for 2 days then 1 tab po BID for 2 days then1/2 tab po BID for 2 days then 1/2 tab daily for 2 days then stop No current facility-administered medications for this visit. ALLERGIES Allergen Reactions Grass Pollen CONGESTION, ITCHY EYES Ivory [Other] UNKNOWN REACTION Naprosyn [Naproxen] Vomiting ACTIVE PROBLEM LIST Benign Intraductal Papillary Mucinous Neoplasm of Pancreas - 12/14/2022 Hemangioma of Liver - 12/14/2022 Renal Cyst, Left - 11/13/2022 Obesity, Class III, BMI >= 40 - 03/23/2022 Goiter, Nontoxic, Multinodular - 03/23/2022 Bronchospasm - 03/23/2022 Anxiety and Depression - 12/26/2015 Social History Tobacco Use Smoking status: Former Years: 2.00 Types: Cigarettes Quit date: 04/28/2012 Years since quittin.7 Smokeless tobacco: Never Tobacco comments: as a teen Vaping Use Vaping Use: Never used Substance Use Topics Alcohol use: Yes Comment: 1-2 mixed drinks per month Drug use: No Review of Systems Respiratory: Negative. Cardiovascular: Negative. Musculoskeletal: Positive for arthralgias and gait problem. Negative for joint swelling and myalgias. OBJECTIVE BP 120/80 Pulse 106 Wt 288 lb (130.6kg) SpO2 97% LMP 11/17/2022 Physical Exam Vitals and nursing note reviewed. Constitutional: General: She is awake. She is not in acute distress. Appearance: Normal appearance. She is well-developed and well-groomed. She is not ill-appearing, toxic-appearing or diaphoretic. HENT: Head: Normocephalic. Right Ear: External ear normal. Left Ear: External ear normal. Nose: Nose normal. Eyes: General: Vision grossly intact. Conjunctiva/sclera: Conjunctivae normal. Pupils: Pupils are equal, round, and reactive to light. Neck: Vascular: No JVD. Trachea: Trachea normal. Pulmonary: Effort: Pulmonary effort is normal. No accessory muscle usage, prolonged expiration or respiratory distress. Musculoskeletal: Cervical back: Neck supple. Right knee: No swelling, deformity, effusion, erythema, ecchymosis, lacerations or crepitus. Decreased range of motion. Tenderness present over the patellar tendon. No medial joint line, lateral joint line, MCL, LCL, ACL or PCL tenderness. No LCL laxity, MCL laxity, ACL laxity or PCL laxity. Abnormal meniscus (tender on palpation). Normal alignment and normal patellar mobility. Normal pulse. Instability Tests: Anterior drawer test negative. Posterior drawer test negative. Anterior Jeremiah test negative. Medial Priscilla test positive and lateral Priscilla test positive. Left knee: Normal. Skin: General: Skin is warm and dry. Capillary Refill: Capillary refill takes less than 2 seconds. Neurological: General: No focal deficit present. Mental Status: She is alert and oriented to person, place, and time. Mental status is at baseline. Psychiatric: Attention and Perception: Attention and perception normal. Mood and Affect: Mood and affect normal. Speech: Speech normal. Behavior: Behavior normal. Behavior is cooperative. Thought Content: Thought content normal. Cognition and Memory: Cognition and memory normal. Judgment: Judgment normal. ASSESSMENT/PLAN: 1. Acute pain of right knee - ICD9: 719.46, ICD10: M25.561 (primary diagnosis) Discussed rest, ice, compression, elevation. Safe use of tylenol. Hold NSAIDs while on steroid taper. Tramadol as needed. Check xray but symptoms very suggestive of meniscus tear so start set up for MRI. Discussed with patient that although Ultram/tramadol is not a narcotic it does carry the risk of addiction if taken over a long period of time. OARRS report reviewed and prescription is reasonable. Discussed that in addition this medicine can lower the seizure threshold and if patient had any history of seizures or seizure like activity which was not shared with provider today, they should not take this medicine. While taking ultram/tramadol patient was instructed to not drive or operate or be in vicinity of heavy machinery. - XR KNEE GENERAL 4V AP BOTH/PA BOTH/LAT/MERC RIGHT - MRI KNEE WO IVCON RIGHT - TRAMADOL 50 MG TABLET - PREDNISONE 10 MG TABLET - KNEE BRACE WITH STRAPS 2. Positive Priscilla test of right knee, initial encounter - ICD9: 836.2, ICD10: S83.206A See above. - XR KNEE GENERAL 4V AP BOTH/PA BOTH/LAT/MERC RIGHT - MRI KNEE WO IVCON RIGHT - KNEE BRACE WITH STRAPS Portions of this note have been entered by ancillary staff. I have reviewed and when necessary edited, so that they are an adequate record of my encounter with this patient Please note that parts of this document were created using voice recognition software and therefore may contain grammatical errors. Patient verbalizes understanding of instructions from today's visit and in agreement with treatmentplan. Questions answered. Agrees to call the office if questions, concerns of issues with acute symptoms not improving or if they worsen. Return if symptoms worsen or fail to improve, for Keep next scheduled appointment.. Angle Nieto APRN-MODESTA documented in this encounterMount [facility]el [facility] System03-17-2023 History of Present illness Narrative* Fransisco Angel MD - 12/14/2022 12:59 PM EDT This note was created using [employer]. Subjective Patient presents with: Recheck: MRI results Antonia Coronado is a 46 year old female for above. This pertained to incidental findings on her CT urogram of liver lesions. She had a family history of liver cancer. Review of Systems Constitutional: Negative for appetite change, fever and unexpected weight change. Gastrointestinal: Negative for abdominal pain, constipation, diarrhea, nausea and vomiting. Genitourinary: Negative. ACTIVE PROBLEM LIST Anxiety and Depression Obesity, Class III, BMI >= 40 Goiter, Nontoxic, Multinodular Bronchospasm Renal Cyst, Left Benign Intraductal Papillary Mucinous Neoplasm of Pancreas Hemangioma of Liver Social History Tobacco Use Smoking status: Former Years: 2.00 Types: Cigarettes Quit date: 04/28/2012 Years since quittin.6 Smokeless tobacco: Never Tobacco comments: as a teen Vaping Use Vaping Use: Never used Substance Use Topics Alcohol use: Yes Comment: 1-2 mixed drinks per month Drug use: No Current Outpatient Medications Medication Sig SUMAtriptan (IMITREX) 50 mg tablet Take one tablet as needed for migraine/headache. Can repeat in 2hours if ineffective. No more than 2 tablets in 24 hours. topiramate (TOPAMAX) 25 mg tablet Take 1 tablet by mouth daily at bedtime. albuterol HFA (PROAIR HFA) 90 mcg/actuation inhaler Inhale 2 Puffs as instructed every 6 hours as needed for wheezing/shortness of breath. loratadine (CLARITIN) 10 mg tablet Take 1 tablet by mouth once daily. IBUPROFEN ORAL Take by mouth. ACETAMINOPHEN (TYLENOL ORAL) Take by mouth as needed. multivitamin tablet Take 1 tablet by mouth once daily. No current facility-administered medications for this visit. Objective BP (P) 122/80 (BP Site: Left Arm, BP Position: Sitting, BP Cuff Size: Large Adult) Pulse (P) 78 Wt (P) 131.5 kg (290 lb) LMP 11/17/2022 (Exact Date) BMI (P) 46.11 kg/m Physical Exam Constitutional: Appearance: Normal appearance. She is not ill-appearing. Test results pertinent to today's visit were reviewed and discussed with the patient. Assessment and Plan 1. Hemangioma of liver - ICD9: 228.04, ICD10: D18.03 (primary diagnosis) 2. 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 Findings are benign. Option of monitoring with repeat MRI versus referral to GI were discussed. We agreed to monitor only for now and we'll plan a repeat MRI liver wo/w IV contrast in May. All questions were answered to patient satisfaction. Fransisco Angel MD documented in this encounterMount Carmel [facility] System03-13-2023 History of Present illness Narrative* Patricia Gabriel, RT(R) - 12/10/2022 9:20 AM EDT Radiology Service Progress Note DATE OF SERVICE: December 10, 2022 TIME: 10:02 AM PATIENT IDENTITY VERIFICATION COMPLETED USING TWO (2) STANDARD IDENTIFIERS: Name and Date of confirmed by patient verbally. FALL SCREENING: Has the patient had 2 falls in the last year or 1 fall with injury or currently using an Ambulatory Assistive Device (Walker, Cane, Wheelchair, Crutches, etc.)? No PATIENT GENDER DATA: Female. status: : No status: NO. PATIENT RELEVANT IMPLANT DATA REVIEWED: Yes ALLERGIES: Reviewed and unchanged CONTRAST ALLERGY: NO. EXAM: MRI - CONTRAST TYPE: GROUP II PERIPHERAL IV DATA: Ambulatory: A peripheral IV was started in the Left antecubital site with a Angio cath: 22 gauge. RADIOLOGY DEPARTMENT: MR; Exam(s) Completed: Body: Liver (routine) SIGNATURE: RT Vdia(R) PATIENT NAME: Antonia Coronado DATE: December 10, 2022 TIME: 10:02 AM documented in this encounterMount Carmel Health System03-11-2023 Miscellaneous Notes* Telephone Encounter - Marjorie Cardenas LPN - 12/08/2022 10:55 AM EST Phoned patient and left detailed message of notes below from Dr Angel on voicemail. Advised to have city bus driver since will be taking the medication prior to MRI. * Telephone Encounter - Fransisco Angel MD - 12/08/2022 10:46 AM EST Patient's request for medication is as follows Requested Prescriptions Signed Prescriptions Disp Refills LORazepam (ATIVAN) 1 mg tablet 1 tablet 0 Sig: Take 1 tablet by mouth one time only for 1 dose. 30 minutes prior test. Authorizing Provider: FRANSISCO ANGEL Order entered - please phone pharmacy and notify patient. Fransisco Angel MD * Telephone Encounter - Nita Cardozo RN - 12/07/2022 3:30 PM EST Patient calls and states that she has MRI scheduled for Saturday. Patient states that she is extremely claustrophobia. Patient asking if provider can send in medication to help with claustrophobia/Anxiety due to closed MRI. Pharmacy is [facility] [place]. Please review and advise, Nita Cardozo RN documented in this encounterMount Carmel Health System02-16-2023 Miscellaneous Notes* Letter - Mammography Coordinator - 11/15/2022 12:25 PM EST November 16, 2022 PID: [id number] Antonia Coronado [address] [place] [place] [address] Dear Ms. Coronado, We are pleased to inform you that the results of your recent breast imaging exam on 11/15/2022 are normal. Your mammogram demonstrates that you have dense breast tissue, which could hide abnormalities. Dense breast tissue, in and of itself, is a relatively common condition. Therefore, this information is not provided to cause undue concern; rather, it is to raise your awareness and promote discussion with your health care provider regarding the presence of dense breast tissue in addition to other riskfactors. Early detection of cancer is very important. We also understand recommendations regarding breast cancer screening are controversial. Please discuss with your primary care provider which strategy is best for you and whether a mammogram is right for you. Your imaging studies and report will be kept on file at [facility] as part of your permanent medical record and are available for your continuing care. Thank you for allowing us to help in meeting your health care needs. Sincerely, Dr. Rhodes Interpreting Radiologist [facility] (Normal over 40) documented in this encounterMount Carmel Health System02-16-2023 History of Present illness Narrative* Lizeth Jara, RT(R) - 11/15/2022 10:10 AM EST Radiology Service Progress Note PATIENT NAME: Antonia Coronado DATE OF SERVICE: November 15, 2022 TIME: 10:00 AM PATIENT IDENTITY VERIFICATION COMPLETED USING TWO (2) IDENTIFIERS: Name and Date of confirmedby patient verbally. FALL SCREENING: Has the patient had 2 falls in the last year or 1 fall with injury or currently using an Ambulatory Assistive Device (Walker, Cane, Wheelchair, Crutches, etc.)? No PATIENT GENDER DATA: Female. status: : No status: NO. PATIENT RELEVANT IMPLANT DATA REVIEWED: Not Applicable RADIOLOGY DEPARTMENT: Mammography PERIPHERAL IV DATA: Not applicable SIGNED BY: RT Onelia(R) November 15, 2022 10:00 AM documented in this encounterMount Carmel Health System02-15-2023 History of Present illness Narrative* Fransisco Angel MD - 11/14/2022 11:27 AM EST This note was created using [employer]. Subjective Antonia Coronado is a 46 year old female seen by urology for nephrolithiasis. CT scan showed liver lesions, probably cysts. She is concerned because of her mother's history of liver cancer. She had no gastrointestinal symptoms. She has been diagnosed with migraines, and these were controlled with her current regimen. Sumatriptan was taken on average once a month. Review of Systems Constitutional: Negative for appetite change, fever and unexpected weight change. Cardiovascular: Negative for chest pain, palpitations and leg swelling. Gastrointestinal: Negative for abdominal pain, constipation, diarrhea, nausea and vomiting. Genitourinary: Negative. ACTIVE PROBLEM LIST Anxiety and Depression Obesity, Class III, BMI >= 40 Goiter, Nontoxic, Multinodular Bronchospasm Renal Cyst, Left Current Outpatient Medications Medication Sig topiramate (TOPAMAX) 25 mg tablet Take 1 tablet by mouth daily at bedtime. SUMAtriptan (IMITREX) 50 mg tablet Take one tablet as needed for migraine/headache. Can repeat in 2hours if ineffective. No more than 2 tablets in 24 hours. albuterol HFA (PROAIR HFA) 90 mcg/actuation inhaler Inhale 2 Puffs as instructed every 6 hours as needed for wheezing/shortness of breath. loratadine (CLARITIN) 10 mg tablet Take 1 tablet by mouth once daily. IBUPROFEN ORAL Take by mouth. ACETAMINOPHEN (TYLENOL ORAL) Take by mouth as needed. iv contrast (will be provided with radiology test) CT Urogram WO/W Inject, intravenously, once for 1 dose.No IV access, insert saline lock prior to the beginning of sedation, infusion, injection of imaging exam. Discontinue saline lock post exam. If Pt. has a central line or IVAD, may access for administration according to line specific nursing protocol. Once exam is complete flush line and de-access according to line specific nursing protocol in the CT contrast administration guidelines link. alfuzosin SR (UROXATRAL) 10 mg 24 hr tablet Take 1 tablet by mouth once daily for 14 days. (Patientnot taking: Reported on 11/13/2022) No current facility-administered medications for this visit. Objective BP 114/82 (BP Site: Left Arm, BP Position: Sitting, BP Cuff Size: Large Adult) Pulse 99 Temp 36.4 C (97.5 F) (Temporal) Wt 127.5 kg (281 lb) LMP 09/18/2022 (Exact Date) BMI 44.01 kg/m Physical Exam Constitutional: General: She is not in acute distress. Eyes: General: No scleral icterus. Conjunctiva/sclera: Conjunctivae normal. Pulmonary: Effort: Pulmonary effort is normal. Abdominal: General: Bowel sounds are normal. Palpations: There is no hepatomegaly or splenomegaly. Tenderness: There is abdominal tenderness in the right upper quadrant. There is no rebound. Neurological: Mental Status: She is alert. Assessment and Plan 1. Liver lesion - ICD9: 573.8, ICD10: K76.9 (primary diagnosis) Probably cysts. - HEPATIC FUNCTION PNL - MRI LIVER WO IVCON 2. Need for influenza vaccination - ICD9: V04.81, ICD10: Z23 - INFLUENZA VACCINE QUADRIVALENT 6 MO - 64 YRS IM - Online Dealer COVID-19 BIVALENT BOOSTER VACCINE, AGE 12+ YR 3. Screening for cervical cancer - ICD9: V76.2, ICD10: Z12.4 - CONSULT TO GYNECOLOGY 4. Migraine without aura and without status migrainosus, not intractable - ICD9: 346.10, ICD10: G43.009 Controlled. - SUMATRIPTAN 50 MG TABLET 5. Screening for colon cancer - ICD9: V76.51, ICD10: Z12.11 Shared medical decision about options. - COLOGUARD 6. Family history of liver cancer - ICD9: V16.0, ICD10: Z80.0 Mother had primary liver cancer. Fransisco Angel MD documented in this encounter[facility]23 NoteHNO ID: [id number] Author: Lyndon Velasquez MD Service: ? Author Type: Physician Type: Progress Notes Filed: 11/13/2022 2:12 PM Note Text: [facility] ESTABLISHED PATIENT FOLLOW-UP NOTE PATIENT: Antonia Coronado (46 year old) PCP: Fransisco Angel MD SUMMARY: Right nephrolithiasis. 2-mm, UP on CT-10/2022. Left renal cysts. Small, cortical and parapelvic. ASSESSMENT: 1. Right nephrolithiasis - ICD9: 592.0, ICD10: N20.0 (primary diagnosis) 2. Renal cyst, left - ICD9: 753.10, ICD10: N28.1 3. Hepatic lesion - ICD9: 573.8, ICD10: K76.9 PLAN: #1 Chronic, stable. The right renal stone is small and nonobstructing. I recommend observation and dietary stone prevention. #2 Chronic, stable. The renal cysts are benign. There is no evidence of calyceal diverticulum. No routine imaging surveillance is indicated. #3 New, undiagnosed. I counseled the patient that I do not have expertise in this area. I recommended follow up with Fransisco Angel MD, the patient's primary care provider for further discussion, work up, and management of this problem. FOLLOW UP: Return if symptoms worsen or fail to improve. CHIEF COMPLAINT: Patient presents with: left flank pain HISTORY OF PRESENT ILLNESS: Prior notes were reviewed. The patient completed a course of Keflex for Klebsiella UTI. She is still having intermittent left back pain. No F/C. The patient is otherwise doing well. ALEXIA/AUASS FORMS No question data found. REVIEW OF SYSTEMS: N/a ALLERGIES: ALLERGIES Allergen Reactions Grass Pollen CONGESTION, ITCHY EYES Ivory [Other] UNKNOWN REACTION Naprosyn [Naproxen] Vomiting MEDICATIONS: iv contrast (will be provided with radiology test) CT Urogram WO/W Inject, intravenously, once for 1 dose.No IV access, insert saline lock prior to the beginning of sedation, infusion, injection of imaging exam. Discontinue saline lock post exam. If Pt. has a central line or IVAD, may access for administration according to line specific nursing protocol. Once exam is complete flush line and de-access according to line specific nursing protocol in the CT contrast administration guidelines link. topiramate (TOPAMAX) 25 mg tablet Take 1 tablet by mouth daily at bedtime. SUMAtriptan (IMITREX) 50 mg tablet Take one tablet as needed for migraine/headache. Can repeat in 2 hours if ineffective. No more than 2 tablets in 24 hours. albuterol HFA (PROAIR HFA) 90 mcg/actuation inhaler Inhale 2 Puffs as instructed every 6 hours as needed for wheezing/shortness of breath. loratadine (CLARITIN) 10 mg tablet Take 1 tablet by mouth once daily. IBUPROFEN ORAL Take by mouth. ACETAMINOPHEN (TYLENOL ORAL) Take by mouth as needed. alfuzosin SR (UROXATRAL) 10 mg 24 hr tablet Take 1 tablet by mouth once daily for 14 days. (Patient not taking: Reported on 11/13/2022) PAST HISTORY: PAST MEDICAL HISTORY Diagnosis Date Anxiety and depression 12/26/2015 Depression FRACTURE FOOT Hydronephrosis 08/25/2002 right hydronephrosis per [place] Marital conflict 02/12/2012 Multinodular goiter 02/18/2012 Obesity, unspecified 05/19/2012 05/19/2012Patient is obese. One-hour GCT drawn today. Panic 02/12/2012 Supervision of high-risk 06/13/2012 06/13/12 - RA done - v23 - KK Unspecified essential hypertension 2006 Urinary calculus, unspecified 2001 Renal stones PAST SURGICAL HISTORY Procedure Laterality Date DELIVERY ONLY 12/31/12 , low transverse CHOLECYSTECTOMY 2000 Cholecystectomy DILATION AND CURETTAGE DXAND/THER NONOBSTETRIC 1999 Dilation AND curettage EXTENSIVE FOOT SURGERY 07/2010 Left Foot PAST SURGICAL HISTORY OF 12-24-07 left plantar fasciotomy TONSILLECTOMY PRIMARY/SECONDARY AGE 12/1997 TUBAL LIGATION, 12/31/12 pptl at time of FAMILY HISTORY Problem Relation Age of Onset Cancer Mother LIVER, GALL BLADDER Diabetes Mother borderline blood sugars other (glaucoma [Other]) Maternal Grandmother Cancer Maternal Grandmother Seizures Daughter Asthma Son Social History Tobacco Use Smoking status: Former Years: 2.00 Types: Cigarettes Quit date: 04/28/2012 Years since quittin.5 Smokeless tobacco: Never Tobacco comments: as a teen Vaping Use Vaping Use: Never used Substance Use Topics Alcohol use: Yes Comment: 1-2 mixed drinks per month Drug use: No PHYSICAL EXAMINATION: BP 141/81 Ht 170.2 cm (5' 7) Wt 124.7 kg (275 lb) LMP 09/18/2022 (Exact Date) BMI 43.07 kg/m? Genitourinary: (1) Rectal: . (2) CVA: . (3) Genital: . (4) Gonads: . (5) Other: . Constitutional: (more content not included)...[facility] 11-13-2022 History of Present illness Narrative* Lyndon Velasquez MD - 11/13/2022 1:45 PM EST [facility] ESTABLISHED PATIENT FOLLOW-UP NOTE PATIENT: Antonia Smith Sonny (46 year old) PCP: Fransisco Angel MD SUMMARY: Right nephrolithiasis. 2-mm, UP on CT-10/2022. Left renal cysts. Small, cortical and parapelvic. ASSESSMENT: 1. Right nephrolithiasis - ICD9: 592.0, ICD10: N20.0 (primary diagnosis) 2. Renal cyst, left - ICD9: 753.10, ICD10: N28.1 3. Hepatic lesion - ICD9: 573.8, ICD10: K76.9 PLAN: #1 Chronic, stable. The right renal stone is small and nonobstructing. I recommend observation and dietary stone prevention. #2 Chronic, stable. The renal cysts are benign. There is no evidence of calyceal diverticulum. No routine imaging surveillance is indicated. #3 New, undiagnosed. I counseled the patient that I do not have expertise in this area. I recommended follow up with Fransisco Angel MD, the patient's primary care provider for further discussion, work up, and management of this problem. FOLLOW UP: Return if symptoms worsen or fail to improve. CHIEF COMPLAINT: Patient presents with: left flank pain HISTORY OF PRESENT ILLNESS: Prior notes were reviewed. The patient completed a course of Keflex for Klebsiella UTI. She is still having intermittent left back pain. No F/C. The patient is otherwise doing well. ALEXIA/AUASS FORMS No question data found. REVIEW OF SYSTEMS: N/a ALLERGIES: ALLERGIES Allergen Reactions Grass Pollen CONGESTION, ITCHY EYES Ivory [Other] UNKNOWN REACTION Naprosyn [Naproxen] Vomiting MEDICATIONS: iv contrast (will be provided with radiology test) CT Urogram WO/W Inject, intravenously, once for 1 dose.No IV access, insert saline lock prior to the beginning of sedation, infusion, injection of imaging exam. Discontinue saline lock post exam. If Pt. has a central line or IVAD, may access for administration according to line specific nursing protocol. Once exam is complete flush line and de-access according to line specific nursing protocol in the CT contrast administration guidelines link. topiramate (TOPAMAX) 25 mg tablet Take 1 tablet by mouth daily at bedtime. SUMAtriptan (IMITREX) 50 mg tablet Take one tablet as needed for migraine/headache. Can repeat in 2hours if ineffective. No more than 2 tablets in 24 hours. albuterol HFA (PROAIR HFA) 90 mcg/actuation inhaler Inhale 2 Puffs as instructed every 6 hours as needed for wheezing/shortness of breath. loratadine (CLARITIN) 10 mg tablet Take 1 tablet by mouth once daily. IBUPROFEN ORAL Take by mouth. ACETAMINOPHEN (TYLENOL ORAL) Take by mouth as needed. alfuzosin SR (UROXATRAL) 10 mg 24 hr tablet Take 1 tablet by mouth once daily for 14 days. (Patientnot taking: Reported on 11/13/2022) PAST HISTORY: PAST MEDICAL HISTORY Diagnosis Date Anxiety and depression 12/26/2015 Depression FRACTURE FOOT Hydronephrosis 08/25/2002 right hydronephrosis per [place] Marital conflict 02/12/2012 Multinodular goiter 02/18/2012 Obesity, unspecified 05/19/2012 05/19/2012Patient is obese. One-hour GCT drawn today. Panic 02/12/2012 Supervision of high-risk 06/13/2012 06/13/12 - done - v23 - KK Unspecified essential hypertension 2007 Urinary calculus, unspecified 2001 Renal stones PAST SURGICAL HISTORY Procedure Laterality Date DELIVERY ONLY 12/31/12 , low transverse CHOLECYSTECTOMY 2000 Cholecystectomy DILATION & CURETTAGE DX&/THER NONOBSTETRIC 1999 Dilation & curettage EXTENSIVE FOOT SURGERY 07/2010 Left Foot PAST SURGICAL HISTORY OF 12-24-07 left plantar fasciotomy TONSILLECTOMY PRIMARY/SECONDARY AGE 13/> 1997 TUBAL LIGATION, 12/31/12 pptl at time of FAMILY HISTORY Problem Relation Age of Onset Cancer Mother LIVER, GALL BLADDER Diabetes Mother borderline blood sugars other (glaucoma [Other]) Maternal Grandmother Cancer Maternal Grandmother Seizures Daughter Asthma Son Social History Tobacco Use Smoking status: Former Years: 2.00 Types: Cigarettes Quit date: 04/28/2012 Years since quittin.5 Smokeless tobacco: Never Tobacco comments: as a teen Vaping Use Vaping Use: Never used Substance Use Topics Alcohol use: Yes Comment: 1-2 mixed drinks per month Drug use: No PHYSICAL EXAMINATION: BP 141/81 Ht 170.2 cm (5' 7) Wt 124.7 kg (275 lb) LMP 09/18/2022 (Exact Date) BMI 43.07 kg/m Genitourinary: (1) Rectal: . (2) CVA: . (3) Genital: . (4) Gonads: . (5) Other: . Constitutional: In no acute distress. Well appearing. Respiratory: Normal respiratory effort without use of accessory muscles. Musculoskeletal: Normal gait and station Cardiovascular: Gastrointestinal: DATA: Clinic: URINALYSIS: N/a Laboratory: Creatinine Date Value Ref Range Status 10/30/2022 0.68 0.58 - 0.96 mg/dL Final 05/22/2022 0.66 0.58 - 0.96 mg/dL Final 03/24/2022 0.76 0.58 - 0.96 mg/dL Final 02/29/2016 0.79 0.70 - 1.40 mg/dL Final PSA: No results found for: PSA Cultures: Culture Results - Past 1 Year CULTURE 10/03/2022 10,000 -<50,000 CFU/ml Normal urogenital eliazar 10/23/2022 10,000 -<50,000 CFU/ml Klebsiella pneumoniae(A) Some recent data might be hidden Susceptibility Tests - Past 1 Year Collected Organism Ampicillin Ampicillin/Sulbact Aztreonam Cefazolin Cefepime Ceftriaxone Ciprofloxacin Ertapenem Gentamicin Meropenem Nitrofurantoin Piperacillin/Tazobac Tobramycin Trimeth sulfameth 10/03/22 Normal urogenital eliazar 10/23/22 Klebsiella pneumoniae R S S S S S S S S S S S S S MEDICAL DECISION MAKING PROBLEM(S): DATA: Category 1 Review of test result(s): Ordering of test(s): Review of prior external note: Independent historian: Category 2 Independent interpretation of test: Category 3 Discussion of management or test interpretation: RISK: I have reviewed the problem list, family history, and social history documented by my ancillary staff. Lyndon Velasquez MD Staff Urologist documented in this encounter[facility]-07-[facility]23 History of Present illness Narrative* Reef Sandy Damon, RT(R) - 11/06/2022 10:20 AM EST Radiology Service Progress Note DATE OF SERVICE: November 06, 2022 TIME: 10:35 AM PATIENT IDENTITY VERIFICATION COMPLETED USING TWO (2) STANDARD IDENTIFIERS: Name and Date of confirmed by patient verbally. FALL SCREENING: Has the patient had 2 falls in the last year or 1 fall with injury or currently using an Ambulatory Assistive Device (Walker, Cane, Wheelchair, Crutches, etc.)? No PATIENT GENDER DATA: Female. status: : No status: NO. PATIENT RELEVANT IMPLANT DATA REVIEWED: Yes ALLERGIES: Reviewed and unchanged CONTRAST ALLERGY: NO. EXAM: CT -CONTRAST INDUCED NEPHROPATHY RISK FACTORS: Not applicable CREATININE: Creatinine Date Value Ref Range Status 10/30/2022 0.68 0.58 - 0.96 mg/dL Final 05/22/2022 0.66 0.58 - 0.96 mg/dL Final 03/24/2022 0.76 0.58 - 0.96 mg/dL Final Estimated Glomerular Filtration Rate Date Value Ref Range Status 10/30/2022 110 >=60 mL/min/1.73m Final Comment: Estimated Glomerular Filtration Rate (eGFR) is calculated using the 2020 CKD-EPI creatinine equation. This equation utilizes serum creatinine, sex, and age as parameters. The creatinine assay has traceable calibration to isotope dilution- mass spectrometry. Refer to KDIGO guidelines for clinical interpretation. In patients with unstable renal function, e.g. those with acute kidney injury, the eGFRmay not accurately reflect actual GFR. eGFR- Date Value Ref Range Status 02/29/2016 >60 Final P.O.C.T. RESULTS: POC done: Yes, See Lab Tab November 06, 2022 TREATMENT: N/A PERIPHERAL IV DATA: Ambulatory: A peripheral IV was started in the Right hand with a Angio cath: 22gauge. RADIOLOGY DEPARTMENT: CT; Exam(s) Completed: urogram with and w/o SIGNATURE: RT Chaitanya(R) PATIENT NAME: Antonia Coronado DATE: November 06, 2022 TIME: 10:35 AM documented in this encounterMount [facility]el [facility] System01-24-2023 NoteHNO ID: [id number] Author: Lyndon Velasquez MD Service: ? Author Type: Physician Type: Progress Notes Filed: 10/23/2022 11:24 AM Note Text: [facility] NEW CONSULT HISTORY AND PHYSICAL EXAMINATION PATIENT: Antonia Coronado (46 year old) REFERRING PROVIDER: Angle Nieto PCP: Fransisco Angel MD Consultation requested by Angle Nieto for an opinion regarding Antonia Coronado. My final recommendations will be communicated back to the requesting physician by way of shared Medical record or letter to requesting physician via [place] mail. SUMMARY: History of kidney stones. Seen by PCP on 10/03/22 for acute intermittent stabbing left lower back pain associate with nausea. Urine cultures showed 10-50K normal urogenital eliazar. R/BUS 10/12/22 showed a punctate right lower pole renal stone without hydronephrosis bilaterally and a 1.8 cm left parapelvic cyst. ASSESSMENT: 1. Right nephrolithiasis - ICD9: 592.0, ICD10: N20.0 (primary diagnosis) 2. Renal cyst, left - ICD9: 753.10, ICD10: N28.1 3. Abnormal urinalysis - ICD9: 791.9, ICD10: R82.90 4. Other hydronephrosis - ICD9: 591, ICD10: N13.39 5. Left flank pain - ICD9: 789.09, ICD10: R10.9 PLAN: Chronic, stable. The diagnosis of small, asymptomatic nephrolithiasis was discussed with the patient. When stones are small and nonobstructing, upfront treatment is usually not indicated. If a stone were to move, as long as it had not grown significantly, it would likely pass spontaneously. Therefore, surveillance is recommended over observation to assess growth and progression. Plan for surveillance imaging. (MJM) Chronic, unstable. I counseled the patient that renal cysts are fluid-filled sacs that form in the kidneys. I further discussed that renal cysts are fairly common with age and usually do not cause symptoms or harm, which is why they are usually detected incidentally on imaging performed for other reasons. I counseled the patient that most cysts are considered simple, like hers, meaning that they have a thin wall and contain water-like fluid and pose no risk of malignancy. There is a small chance of confusing a calyceal diverticulum for a parapelvic cyst on US. Since she is still having intermittent moderate dull with occasional stabbing left pain, I recommend additional imaging to better characterize the cyst in question. Obtain CT urogram. Order Cr. Follow up with results. (MJM) Acute, complicated due to diagnostic challenges. The urinalysis results were personally reviewed with the patient, and their significance was discussed. I counseled the patient that a positive urine dipstick for blood does not constitute hematuria and that further testing with urine microscopy must be performed to confirm the presence of blood. Based on the positive urine dipstick for blood today, I will send the urine sample for microscopic analysis. I will also send a urine culture to rule out UTI. If 3 or more RBCs are present per high-power field, then I recommend proceeding with a microhematuria work up, including imaging and cystoscopy. We discussed that microscopic hematuria is associated with a small (5%) but significant risk of urologic malignancy. I counseled the patient that cystoscopy is considered a minor minimally invasive surgical procedure performed under local anesthesia that is generally well tolerated but that carries potential surgical risks including, but not limited to, urinary tract infection, bleeding, and pain. Acute, complicated. Obtain CT urogram to rule out urologic source of pain as above (#2). All questions were answered. FOLLOW UP: Return in about 3 weeks (around 11/13/2022) for with CT results.. CHIEF COMPLAINT: Patient presents with: Kidney Stones HISTORY OF PRESENT ILLNESS: I personally reviewed the past medical records received from the referring provider. I personally reviewed the prior radiology images, and my findings were discussed with the patient. She has been having worsening anxiety. AUASS/ALEXIA FORMS No question data found. REVIEW OF SYSTEMS: Constitutional: fevers or chills - denies Cardiovascular: new or worsening chest pain - denies Respiratory: new or worsening shortness of breath - denies Gastrointestinal: constipation - denies Hematologic/Lymphatic: easy bleeding or bruising - denies ALLERGIES: ALLERGIES Allergen Reactions Grass Pollen CONGESTION, ITCHY EYES Ivory [Other] UNKNOWN REACTION Naprosyn [Naproxen] Vomiting MEDICATIONS: iv contrast (will be provided with radiology test) CT Urogram WO/W Inject, intravenously, once for 1 dose.No IV ac (more content not included)... [facility]01-24-[facility]23 History of Present illness Narrative* Lyndon Velasquez MD - 10/23/2022 11:00 AM EST [facility] NEW CONSULT HISTORY AND PHYSICAL EXAMINATION PATIENT: Antonia Coronado (46 year old) REFERRING PROVIDER: Angle Nieto PCP: Fransisco Angel MD Consultation requested by Angle Nieto for an opinion regarding Antonia Coronado. My final recommendations will be communicated back to the requesting physician by way of shared Medical record or letter to requesting physician via [place] mail. SUMMARY: History of kidney stones. Seen by PCP on 10/03/22 for acute intermittent stabbing left lowerback pain associate with nausea. Urine cultures showed 10-50K normal urogenital eliazar. R/BUS 10/12/22 showed a punctate right lower pole renal stone without hydronephrosis bilaterally and a 1.8 cm left parapelvic cyst. ASSESSMENT: 1. Right nephrolithiasis - ICD9: 592.0, ICD10: N20.0 (primary diagnosis) 2. Renal cyst, left - ICD9: 753.10, ICD10: N28.1 3. Abnormal urinalysis - ICD9: 791.9, ICD10: R82.90 4. Other hydronephrosis - ICD9: 591, ICD10: N13.39 5. Left flank pain - ICD9: 789.09, ICD10: R10.9 PLAN: Chronic, stable. The diagnosis of small, asymptomatic nephrolithiasis was discussed with the patient. When stones are small and nonobstructing, upfront treatment is usually not indicated. If a stone were to move, as long as it had not grown significantly, it would likely pass spontaneously. Therefore, surveillance is recommended over observation to assess growth and progression. Plan for surveillance imaging. (MJM) Chronic, unstable. I counseled the patient that renal cysts are fluid-filled sacs that form in the kidneys. I further discussed that renal cysts are fairly common with age and usually do not cause symptoms or harm, which is why they are usually detected incidentally on imaging performed for other reasons. I counseled the patient that most cysts are considered simple, like hers, meaning that they have a thin wall and contain water-like fluid and pose no risk of malignancy. There is a small chance of confusing a calyceal diverticulum for a parapelvic cyst on US. Since she is still having intermittent moderate dull with occasional stabbing left pain, I recommend additional imaging to better c haracterize the cyst in question. Obtain CT urogram. Order Cr. Follow up with results. (MURRAY) Acute, complicated due to diagnostic challenges. The urinalysis results were personally reviewed with the patient, and their significance was discussed. I counseled the patient that a positive urine dipstick for blood does not constitute hematuria and that further testing with urine microscopy mustbe performed to confirm the presence of blood. Based on the positive urine dipstick for blood today, I will send the urine sample for microscopic analysis. I will also send a urine culture to rule out UTI. If 3 or more RBCs are present per high-power field, then I recommend proceeding with a microhematuria work up, including imaging and cystoscopy. We discussed that microscopic hematuria is associated with a small (5%) but significant risk of urologic malignancy. I counseled the patient that cystoscopy is considered a minor minimally invasive surgical procedure performed under local anesthesia that is generally well tolerated but that carries potential surgical risks including, but not limited to, urinary tract infection, bleeding, and pain. Acute, complicated. Obtain CT urogram to rule out urologic source of pain as above (#2). All questions were answered. FOLLOW UP: Return in about 3 weeks (around 11/13/2022) for with CT results.. CHIEF COMPLAINT: Patient presents with: Kidney Stones HISTORY OF PRESENT ILLNESS: I personally reviewed the past medical records received from the referring provider. I personally reviewed the prior radiology images, and my findings were discussed with the patient. She has been having worsening anxiety. AUASS/ALEXIA FORMS No question data found. REVIEW OF SYSTEMS: Constitutional: fevers or chills - denies Cardiovascular: new or worsening chest pain - denies Respiratory: new or worsening shortness of breath - denies Gastrointestinal: constipation - denies Hematologic/Lymphatic: easy bleeding or bruising - denies ALLERGIES: ALLERGIES Allergen Reactions Grass Pollen CONGESTION, ITCHY EYES Ivory [Other] UNKNOWN REACTION Naprosyn [Naproxen] Vomiting MEDICATIONS: iv contrast (will be provided with radiology test) CT Urogram WO/W Inject, intravenously, once for 1 dose.No IV access, insert saline lock prior to the beginning of sedation, infusion, injection of imaging exam. Discontinue saline lock post exam. If Pt. has a central line or IVAD, may access for administration according to line specific nursing protocol. Once exam is complete flush line and de-access according to line specific nursing protocol in the CT contrast administration guidelines link. 0.9 % sodium chloride (NACL 0.9%) infusion Inject 5-30 mL/hr intravenously one time only for 1 dose. Administer at rate defined per CT contrast administration specifications. To be provided with radiology test. alfuzosin SR (UROXATRAL) 10 mg 24 hr tablet Take 1 tablet by mouth once daily for 14 days. topiramate (TOPAMAX) 25 mg tablet Take 1 tablet by mouth daily at bedtime. SUMAtriptan (IMITREX) 50 mg tablet Take one tablet as needed for migraine/headache. Can repeat in 2hours if ineffective. No more than 2 tablets in 24 hours. albuterol HFA (PROAIR HFA) 90 mcg/actuation inhaler Inhale 2 Puffs as instructed every 6 hours as needed for wheezing/shortness of breath. loratadine (CLARITIN) 10 mg tablet Take 1 tablet by mouth once daily. IBUPROFEN ORAL Take by mouth. ACETAMINOPHEN (TYLENOL ORAL) Take by mouth as needed. PAST HISTORY: PAST MEDICAL HISTORY Diagnosis Date Anxiety and depression 12/26/2015 Depression FRACTURE FOOT Hydronephrosis 08/25/2002 right hydronephrosis per [place] Marital conflict 02/12/2012 Multinodular goiter 02/18/2012 Obesity, unspecified 05/19/2012 05/19/2012Patient is obese. One-hour GCT drawn today. Panic 02/12/2012 Supervision of high-risk 06/13/2012 06/13/12 - RA done - v23 - KK Unspecified essential hypertension 2007 Urinary calculus, unspecified 2001 Renal stones PAST SURGICAL HISTORY Procedure Laterality Date DELIVERY ONLY 12/31/12 , low transverse CHOLECYSTECTOMY 2000 Cholecystectomy DILATION & CURETTAGE DX&/THER NONOBSTETRIC 1999 Dilation & curettage EXTENSIVE FOOT SURGERY 07/2010 Left Foot PAST SURGICAL HISTORY OF 12-24-07 left plantar fasciotomy TONSILLECTOMY PRIMARY/SECONDARY AGE 13/> 1997 TUBAL LIGATION, 12/31/12 pptl at time of FAMILY HISTORY Problem Relation Age of Onset Cancer Mother LIVER, GALL BLADDER Diabetes Mother borderline blood sugars other (glaucoma [Other]) Maternal Grandmother Cancer Maternal Grandmother Seizures Daughter Asthma Son Social History Tobacco Use Smoking status: Former Years: 2.00 Types: Cigarettes Quit date: 04/28/2012 Years since quittin.4 Smokeless tobacco: Never Tobacco comments: as a teen Vaping Use Vaping Use: Never used Substance Use Topics Alcohol use: Yes Comment: 1-2 mixed drinks per month Drug use: No PHYSICAL EXAMINATION: BP 144/90 Ht 170.2 cm (5' 7) Wt 124.7 kg (275 lb) LMP 09/18/2022 (Exact Date) BMI 43.07 kg/m Genitourinary: (1) Rectal: . (2) CVA: . (3) Genital: . (4) Gonads: . (5) Other: . Constitutional: In no acute distress. Well appearing. Respiratory: Normal respiratory effort without use of accessory muscles. Musculoskeletal: Normal gait and station Cardiovascular: Gastrointestinal: DATA: Clinic: URINE POC GLUCOSE UA (POCT) Negative 10/23/2022 BILIRUBIN UA (POCT) Negative 10/23/2022 KETONE UA (POCT) Negative 10/23/2022 SPECIFIC GRAVITY UA (POCT) 1.025 10/23/2022 HEMOGLOBIN/BLOOD UA (POCT) Moderate 10/23/2022 PH UA (POCT) 6.5 10/23/2022 PROTEIN UA (POCT) Negative 10/23/2022 UROBILINOGEN UA (POCT) 0.2 10/23/2022 NITRITE UA (POCT) Negative 10/23/2022 LEUKOCYTES UA (POCT) Small 10/23/2022 COLOR UA (POCT) Yellow 10/23/2022 CLARITY UA (POCT) Clear 10/23/2022 Laboratory: Creatinine Date Value Ref Range Status 05/22/2022 0.66 0.58 - 0.96 mg/dL Final 03/24/2022 0.76 0.58 - 0.96 mg/dL Final 02/29/2016 0.79 0.70 - 1.40 mg/dL Final 12/10/2013 0.60 (L) 0.70 - 1.40 mg/dL Final PSA: No results found for: PSA Cultures: Culture Results - Past 1 Year CULTURE 10/03/2022 10,000 -<50,000 CFU/ml Normal urogenital eliazar Some recent data might be hidden Susceptibility Tests - Past 1 Year Collected Organism 10/03/22 Normal urogenital eliazar MEDICAL DECISION MAKING PROBLEM(S): 1 or more, chronic, unstable problem(s) (4) DATA: Category 1 Review of test result(s): Ordering of test(s): Review of prior external note: Independent historian: Category 2 Independent interpretation of test: US Category 3 Discussion of management or test interpretation: RISK: I have reviewed the problem list, family history, and social history documented by my ancillary staff. Lyndon Velasquez MD Staff Urologist documented in this encounterMount [facility]01-13-2023 History of Present illness Narrative* Eliana Blake RT(R) - 10/12/2022 1:45 PM EST Radiology Service Progress Note PATIENT NAME: Antonia Coronado DATE OF SERVICE: October 12, 2022 TIME: 1:59 PM PATIENT IDENTITY VERIFICATION COMPLETED USING TWO (2) IDENTIFIERS: Name and Date of confirmedby patient verbally. FALL SCREENING: Has the patient had 2 falls in the last year or 1 fall with injury or currently using an Ambulatory Assistive Device (Walker, Cane, Wheelchair, Crutches, etc.)? No PATIENT GENDER DATA: Female. status: : No status: N/A PATIENT RELEVANT IMPLANT DATA REVIEWED: Not Applicable RADIOLOGY DEPARTMENT: Ultrasound PERIPHERAL IV DATA: Not applicable SIGNED BY: Eliana Blake Rdms October 12, 2022 1:59 PM documented in this encounterMount [facility]el [facility] System01-04-2023 History of Present illness Narrative* Angle Nieto APRN.METHODS ANALYST - 10/03/2022 9:35 AM EST SUBJECTIVE Antonia Coronado is a 46 year old female here today for acute concern. Chief Complaint Patient presents with: Back Pain: started about 2 days ago questions kidney stones as had history of. HPI Antonia Coronado is an 46 year old female presents acutely today for possible UTI vs kidney stone. Denies fever, or chills. The onset was 2 days ago, worsening and not improving. Had trouble sleeping last night. Some left sided low back aching, occasional sharp and stabbing pains. Has a history of prior kidney stones, felt like this.The symptoms have been constant. Aggravating factors are none that she knows of. It has been alleviated by nothing, tried ibuprofen and tylenol. Radiation is not present. Associated symptoms include some nausea, denies burning, frequency, odor to urine, vomiting. Urine is yellow in color, no blood is visible. They are sexual active, denies exposure to STI. Her medications were reviewed today and her list is now up to date. Medications Current Outpatient Medications Medication Sig topiramate (TOPAMAX) 25 mg tablet Take 1 tablet by mouth daily at bedtime. SUMAtriptan (IMITREX) 50 mg tablet Take one tablet as needed for migraine/headache. Can repeat in 2hours if ineffective. No more than 2 tablets in 24 hours. albuterol HFA (PROAIR HFA) 90 mcg/actuation inhaler Inhale 2 Puffs as instructed every 6 hours as needed for wheezing/shortness of breath. loratadine (CLARITIN) 10 mg tablet Take 1 tablet by mouth once daily. IBUPROFEN ORAL Take by mouth. ACETAMINOPHEN (TYLENOL ORAL) Take by mouth as needed. alfuzosin SR (UROXATRAL) 10 mg 24 hr tablet Take 1 tablet by mouth once daily for 14 days. HYDROcodone-acetaminophen (NORCO) 5-325 mg per tablet Take 1 tablet by mouth every 6 hours as needed for pain for up to 7 days. No current facility-administered medications for this visit. ALLERGIES Allergen Reactions Grass Pollen CONGESTION, ITCHY EYES Ivory [Other] UNKNOWN REACTION Naprosyn [Naproxen] Vomiting ACTIVE PROBLEM LIST Obesity, Class III, BMI >= 40 - 03/23/2022 Goiter, Nontoxic, Multinodular - 03/23/2022 Bronchospasm - 03/23/2022 Anxiety and Depression - 12/26/2015 Social History Tobacco Use Smoking status: Former Years: 2.00 Types: Cigarettes Quit date: 04/28/2012 Years since quittin.4 Smokeless tobacco: Never Tobacco comments: as a teen Vaping Use Vaping Use: Never used Substance Use Topics Alcohol use: Yes Comment: 1-2 mixed drinks per month Drug use: No Review of Systems Constitutional: Negative. Respiratory: Negative. Cardiovascular: Negative. Genitourinary: Positive for flank pain. Negative for dysuria, frequency, hematuria, pelvic pain andurgency. OBJECTIVE BP 120/80 Pulse 90 Wt 276 lb (125.2kg) SpO2 98% LMP 09/18/2022 Physical Exam Vitals and nursing note reviewed. Constitutional: General: She is not in acute distress. Appearance: She is not ill-appearing, toxic-appearing or diaphoretic. Cardiovascular: Rate and Rhythm: Normal rate and regular rhythm. Heart sounds: Normal heart sounds. Pulmonary: Effort: Pulmonary effort is normal. No respiratory distress. Breath sounds: Normal breath sounds. Abdominal: Tenderness: There is no right CVA tenderness or left CVA tenderness. Skin: General: Skin is warm and dry. Capillary Refill: Capillary refill takes less than 2 seconds. Neurological: General: No focal deficit present. Mental Status: She is alert and oriented to person, place, and time. Mental status is at baseline. Psychiatric: Mood and Affect: Mood normal. Behavior: Behavior normal. Thought Content: Thought content normal. Judgment: Judgment normal. ASSESSMENT/PLAN: 1. Acute left-sided low back pain without sciatica - ICD9: 724.2, ICD10: M54.50 (primary diagnosis) Suspect her pain is secondary to a kidney stone. Urine dip negative for blood but leukocytes a re present. Will culture the urine and in the mean time treat as a stone. If symptoms worsen or persist get imaging but given her history of prior stones that were passed without issues we will wait. Start alpha 1 margie to help facilitate and norco PRN pain. OARRS reviewed and script is appropriate, non-opioids considered. Patient is aware of risks and benefits of opioid medications and their use, including but not limited to risk for addiction. Advised to take medication as prescribed and adhere to the dosing regimen and to use the least amount necessary for the shortest period of time. Discussed possible side effects including constipation. Advisedto use caution when operating heavy machinery and driving and to never share or sell medication. PDMP website checked and validated. All prescriptions have been APPROPRIATELY filled. No suspiciousactivity was identified. 10/03/2022 by Angle Nieto APRN.[facility] - UA DIP B/O - ALFUZOSIN ER 10 MG TABLET,EXTENDED RELEASE 24 HR - HYDROCODONE 5 MG-ACETAMINOPHEN 325 MG TABLET 2. History of kidney stones - ICD9: V13.01, ICD10: Z87.442 - ALFUZOSIN ER 10 MG TABLET,EXTENDED RELEASE 24 HR - HYDROCODONE 5 MG-ACETAMINOPHEN 325 MG TABLET 3. Leukocytes in urine - ICD9: 791.7, ICD10: R82.998 - URINE CULTURE Portions of this note have been entered by ancillary staff. I have reviewed and when necessary edited, so that they are an adequate record of my encounter with this patient Please note that parts of this document were created using voice recognition software and therefore may contain grammatical errors. Patient verbalizes understanding of instructions from today's visit and in agreement with treatmentplan. Questions answered. Agrees to call the office if questions, concerns of issues with acute symptoms not improving or if they worsen. Return if symptoms worsen or fail to improve, for Keep next scheduled appointment.. Angle Nieto APRN-MODESTA documented in this encounterMount [facility]01-04-2023 Instructions* Patient Instructions* Scarlett Dang LPN - 10/03/2022 9:35 AM EST Images from the original note were not included. Urinary Problem-When to Seek Help? Symptoms of a urinary problem may lead to a bladder infection. Women are at greater risk of a urinary tract infection than are men. Most urinary tract infections in women are caused by bacteria and involve the lower urinary tract including the bladder and urethra. Symptoms: Pain or burning when passing urine, urgency, frequency, blood in the urine, difficult emptying your bladder, and lower abdominal fullness or pressure. Common Causes: Sexual intercourse, menopause, constipation, uncontrolled diabetes, dehydration and feminine products such as tampons, and kidney stones. When to Get Help: Seek medical attention if you get frequent bladder infections, urinary concerns such as leakage, blood in the urine or frequent need to urinate. You may be recommended to get help from a specialist, such as a urologist. Diagnosis & Treatment: Lab testing may include: urinalysis, and urine culture that can be collected in the lab or walk-in clinic. Most bladder infections can easily be treated. A physician, nurse practitioner or physician optometry assistant may treat with a short course of an antibiotic. Delaying treatment can lead to worsening symptoms, like a kidney infection. Self-Care: Avoid a full bladder, bubble baths, bath oils, food and beverages that may irritate the bladder such as caffeine. Avoid spermicide foam and diaphragms Void before and after sexual intercourse Wipe front to back after using the bathroom. Stay hydrated Stop Smoking Follow-up Care: Follow up testing is not needed in healthy young women if symptoms resolve. documented in this encounterMount [facility] System12-14-2022 Instructions* Patient Instructions* Juliane Rosa APRN.[facility] - 09/12/2022 10:40 AM EST ASSESSMENT/PLAN: 1. Sore throat - ICD9: 462, ICD10: J02.9 (primary diagnosis) - suspect viral - Alere Strep Test NEGATIVE, no culture pending - Discussed supportive care treatment with fluids, rest and analgesia. - STREP A MOLECULAR (POC) 2. Exposure to strep throat - ICD9: V01.89, ICD10: Z20.818 3. Viral URI with cough - ICD9: 465.9, ICD10: J06.9 - Discussed viral etiology and rationale for treatment. - Symptomatic treatment with prn analgesia - Supportive care with fluids and rest - COVID WITH FLUA+B, ROUTINE - Follow-up with your PCP in 3-5 days if symptoms have not improved or sooner if symptoms worsen - Discussed red flags and need for immediate medical evaluation if any occur. - Discussed supportive care treatment with fluids, rest and analgesia. - Discussed expected course of illness Juliane Rosa APRN.METHODS ANALYST Treatment for Viral Upper Respiratory Tract Infections Your body will kill off the virus by itself. Additionally, you can prime your body's immune system.This may help you get better more quickly. Drink lots of fluids - at least one gallon of non-caffeinated liquids per day Make sure you are eating well Get plenty of rest We do not have any medications that kill off these viruses. Antibiotics are used to treat bacterialinfections; however, they are not active against viral infections. There are some things that mighthelp you feel better, though. Vaporizers, humidifiers, hot showers, and hot fluids help open respiratory and sinus passages [place]ff[place] Nasal [place] may offer relief of nasal and head congestion Dexter's Vapor Rub may relieve congestion Tylenol and Advil help control fevers and headaches Salt water gargles help relieve sore throats Chloraceptic spray or throat lozenges may also help relieve sore throat symptoms Occasionally, viral infections turn into something more serious. You should see your doctor or return to the Urgent Care if: You have fevers for longer than five days You have fevers above 102 degrees You are still sick after 10 days You have shortness of breath or wheezing After several days you are getting worse rather than better documented in this encounterMount [facility]el [facility] System12-14-2022 History of Present illness Narrative* Juliane Rosa APRN.[facility] - 09/12/2022 10:32 AM EST Subjective Sore Throat Associated symptoms include coughing and headaches. Pertinent negatives include no congestion. Antonia Coronado is a 46 year old female who presents with sore throat, head ache, body aches, cough since last night. She has not had a fever. She has taken tylenol and ibuprofen. Her daughter tested positive for strep today. Review of Systems Constitutional: Negative for chills and fever. HENT: Positive for sore throat. Negative for congestion. Respiratory: Positive for cough. Cardiovascular: Negative. Musculoskeletal: Positive for myalgias. Neurological: Positive for headaches. BP 128/74 Pulse 90 Temp 37.2 C (98.9 F) Resp 16 Wt 127 kg (280 lb) LMP 05/24/2022 SpO2 98% BMI (P) 43.85 kg/m PAST MEDICAL HISTORY Diagnosis Date Anxiety and depression 12/26/2015 Depression FRACTURE FOOT Hydronephrosis 08/25/2002 right hydronephrosis per [place] Marital conflict 02/12/2012 Multinodular goiter 02/18/2012 Obesity, unspecified 05/19/2012 05/19/2012Patient is obese. One-hour GCT drawn today. Panic 02/12/2012 Supervision of high-risk 06/13/2012 06/13/12 - done - v23 - KK Unspecified essential hypertension 2006 Urinary calculus, unspecified 2001 Renal stones PAST SURGICAL HISTORY Procedure Laterality Date DELIVERY ONLY 12/31/12 , low transverse CHOLECYSTECTOMY 2000 Cholecystectomy DILATION & CURETTAGE DX&/THER NONOBSTETRIC 1999 Dilation & curettage EXTENSIVE FOOT SURGERY 07/2010 Left Foot PAST SURGICAL HISTORY OF 12-24-07 left plantar fasciotomy TONSILLECTOMY PRIMARY/SECONDARY AGE 13/> 1997 TUBAL LIGATION, 12/31/12 pptl at time of ALLERGIES Grass Pollen, Ivory [Other], and Naprosyn [Naproxen] MEDICATIONS topiramate (TOPAMAX) 25 mg tablet Take 1 tablet by mouth daily at bedtime. SUMAtriptan (IMITREX) 50 mg tablet Take one tablet as needed for migraine/headache. Can repeat in 2hours if ineffective. No more than 2 tablets in 24 hours. albuterol HFA (PROAIR HFA) 90 mcg/actuation inhaler Inhale 2 Puffs as instructed every 6 hours as needed for wheezing/shortness of breath. loratadine (CLARITIN) 10 mg tablet Take 1 tablet by mouth once daily. IBUPROFEN ORAL Take by mouth. ACETAMINOPHEN (TYLENOL ORAL) Take by mouth as needed. FAMILY HISTORY Problem Relation Age of Onset Cancer Mother LIVER, GALL BLADDER Diabetes Mother borderline blood sugars other (glaucoma [Other]) Maternal Grandmother Cancer Maternal Grandmother Seizures Daughter Asthma Son Social History Tobacco Use Smoking status: Former Years: 2.00 Types: Cigarettes Quit date: 04/28/2012 Years since quittin.3 Smokeless tobacco: Never Tobacco comments: as a teen Vaping Use Vaping Use: Never used Substance Use Topics Alcohol use: Yes Comment: 1-2 mixed drinks per month Drug use: No Objective Physical Exam Vitals and nursing note reviewed. Constitutional: Appearance: She is obese. HENT: Right Ear: Tympanic membrane, ear canal and external ear normal. Left Ear: Tympanic membrane, ear canal and external ear normal. Nose: Nose normal. Mouth/Throat: Mouth: Mucous membranes are moist. Pharynx: Oropharynx is clear. Uvula midline. No oropharyngeal exudate or posterior oropharyngeal erythema (slight). Cardiovascular: Rate and Rhythm: Normal rate and regular rhythm. Heart sounds: Normal heart sounds. Pulmonary: Effort: Pulmonary effort is normal. No respiratory distress. Breath sounds: Normal breath sounds. No wheezing or rales. Musculoskeletal: Cervical back: Neck supple. Lymphadenopathy: Cervical: No cervical adenopathy. Skin: General: Skin is warm and dry. Findings: No erythema or rash. Neurological: Mental Status: She is alert. documented in this encounterMount [facility] System10-25-2022 Miscellaneous Notes* Telephone Encounter - Sae Cross Ma - 07/24/2022 9:05 AM EDT RADHA: 06/01/2022 Last refill: 06/06/2022 QTY: 30 Refills: 1 Patient's request for medication is as follows: Requested Prescriptions Pending Prescriptions Disp Refills topiramate (TOPAMAX) 25 mg tablet 30 tablet 1 Sig: Take 1 tablet by mouth daily at bedtime. Please approve the above prescription(s) to electronically send to pharmacy. Sae Cross Ma documented in this encounterMount Carmel Health System08-23-2022 Instructions* Patient Instructions* Barbara Gracia APRN.[facility] - 05/22/2022 3:31 PM EDT INSTRUCTIONS: 1. Don't use over the counter pain medication while taking Medrol dose pack. 2. Try some of the following measures to relieve your headache: Stretch and massage the muscles in your shoulders, neck, jaw, and scalp. Take a hot bath. Rest in a quiet, darkened room. Place a warm or cold wet cloth (whichever feels better to you) over the aching area. 3. Don't skip meals or delay meals for very long. Drink plenty of fluids. 4. Avoid alcoholic beverages and cigarette smoking. These often make a headache worse. 5. Get plenty of rest. A good night's sleep often is the best way to relieve a headache. CALL THE OFFICE IF: 1. Your headache gets worse 2. You develop a temperature over 100.5 F (38 C) 3. You need to take medicine to relieve headache pain more than 3 times a week. GO TO ER IF: 1. Your headache is different from any headache you ever had before, or is the worst headache of your life. 2. You feel confused or drowsy. 3. Your neck feels stiff. 4. You have a temperature of 102 F (39 C) or higher. 5. You have eye problems such as sensitivity to light or blurred or double vision. 6. You start to vomit. 7. You have difficulty walking, talking, or moving your arms or legs. documented in this encounterMount Carmel Health System08-23-2022 History of Present illness Narrative* Barbara Gracia APRN.CNP - 05/22/2022 3:00 PM EDT CC Patient presents with: headache x 2 days: Taken motrin, tylenol and excedrin migraine with no relief HPI Antonia Coronado is a 46 year old year old female who presents with complaint of headache for two days. Onset: pain started mild and gradually worsened. Pain is located: occipital region, radiating up to the top of her head Pain is described as: pulsating/throbbing. Rates 8/10 right now. Triggers: The patient is not aware of any specific triggers. Aggravated by: nothing Associated symptoms: nausea, brief episode of blurred vision this morning, felt lightheaded at workyesterday but not since then. BP was 158/95 when checked at work. Neurologic symptoms: Denies vision loss, floaters, flashes of lights, double vision, numbness, weakness, slurred speech, dizziness, clumsiness, difficulty with gait, change in level of consciousness,change in orientation, and worst headache of heart life. History of PIH but no issues since History of migraines/headaches: Yes gets about two migraines a year. Typically they are frontal andthrobbing, associated with nausea. This headache feels different, worse than her typical migraine Injury/Trauma: No Alcohol Intake: No Medication changes: No Treatments: resting in quiet dark room, minor analgesics- Motrin, Tylenol, and Excedrin, and cool compresses. Minimal relief. REVIEW OF SYSTEMS General: no fevers, no chills, no night sweats, and no change in energy HEENT: denies sore throat, nasal congestion, rhinorrhea, sinus pain/pressure, ear pain or pressure Neck: no pain , no swelling, and no stiffness Respiratory: no cough, no wheezing, no shortness of breath Cardiovascular: no chest pain, no chest pressure, no palpitations, and no swelling GI: No nausea, vomiting, or diarrhea Musculoskeletal: Negative for joint pain or swelling, back pain or muscle pain Skin: Negative for lesions, rash, and itching Psych: Negative for sleep disturbance, mood disorder and recent psychosocial stressors PAST MEDICAL HISTORY Diagnosis Date Anxiety and depression 12/26/2015 Depression FRACTURE FOOT Hydronephrosis 08/25/2002 right hydronephrosis per [place] Marital conflict 02/12/2012 Multinodular goiter 02/18/2012 Obesity, unspecified 05/19/2012 05/19/2012Patient is obese. One-hour GCT drawn today. Panic 02/12/2012 Supervision of high-risk 06/13/2012 06/13/12 - RA done - v23 - KK Unspecified essential hypertension 2006 Urinary calculus, unspecified 2001 Renal stones PAST SURGICAL HISTORY Procedure Laterality Date DELIVERY ONLY 12/31/12 , low transverse CHOLECYSTECTOMY 2000 Cholecystectomy DILATION & CURETTAGE DX&/THER NONOBSTETRIC 1999 Dilation & curettage EXTENSIVE FOOT SURGERY 07/2010 Left Foot PAST SURGICAL HISTORY OF 12-24-07 left plantar fasciotomy TONSILLECTOMY PRIMARY/SECONDARY AGE 13/> 1997 TUBAL LIGATION, 12/31/12 pptl at time of ALLERGIES Grass Pollen, Ivory [Other], and Naprosyn [Naproxen] MEDICATIONS albuterol HFA (PROAIR HFA) 90 mcg/actuation inhaler Inhale 2 Puffs as instructed every 6 hours as needed for wheezing/shortness of breath. loratadine (CLARITIN) 10 mg tablet Take 1 tablet by mouth once daily. IBUPROFEN ORAL Take by mouth. ACETAMINOPHEN (TYLENOL ORAL) Take by mouth as needed. FAMILY HISTORY Problem Relation Age of Onset Cancer Mother LIVER, GALL BLADDER Diabetes Mother borderline blood sugars other (glaucoma [Other]) Maternal Grandmother Cancer Maternal Grandmother Seizures Daughter Asthma Son Social History Tobacco Use Smoking status: Former Years: 2.00 Types: Cigarettes Quit date: 04/28/2012 Years since quittin.0 Smokeless tobacco: Never Tobacco comments: as a teen Vaping Use Vaping Use: Never used Substance Use Topics Alcohol use: Yes Comment: 1-2 mixed drinks per month Drug use: No PHYSICAL EXAM BP 125/84 Pulse 84 Resp 20 Wt 133.8 kg (295 lb) LMP 01/23/2018 (Within Days) BMI (P) 46.20 kg/m General Appearance: in no acute distress, alert, appears uncomfortable Pysch: affect is anxious Skin: Skin color, texture, turgor normal for age; No rashes or lesions Head: tenderness with palpation of occipital region Eyes: PERRLA, EOM's intact, conjunctiva pink and moist, no icterus, sclera white, non-injected Ears: external ears normal to inspection and palpation, canals clear, Left tympanic membrane normal. , Right tympanic membrane normal Nose/sinus: No sinus tenderness Neck: Neck supple, No adenopathy Oropharynx: lips normal without lesions, tongue midline and normal, soft palate, uvula, and tonsilsnormal Lymph nodes: No supraclavicular lymphadenopathy Lungs: Lungs clear to auscultation. No wheezing, rhonchi, rales. Heart: RRR without murmur, gallop, or rubs. No ectopy Neurological: Negative findings: speech normal, mental status intact, cranial nerves 2-12 intact, gait, including heel, toe, and tandem walking normal, Romberg negative, muscle strength normal, rapidalternating movements normal, finger to nose normal, reflexes normal and symmetric Ext: no edema in LE bilaterally, good distal pulses DATA REVIEWED: Most recent labs ASSESSMENT/PLAN: 1. Acute intractable headache, unspecified headache type - ICD9: 784.0, ICD10: R51.9 Etiology unclear, possible atypical migraine. Neuro exam normal. No alarm symptoms. - KETOROLAC 60 MG/2 ML INTRAMUSCULAR SOLUTION today in the office - Start METHYLPREDNISOLONE 4 MG TABLETS IN A DOSE PACK tomorrow Check labs: - CBC + DIFF - BASIC METABOLIC PNL Follow-up in 2-3 days if symptoms are persisting or go to ER for any worsening Prescription instructions reviewed with patient as applicable. Potential red flag symptoms discussed with the patient. Reviewed appropriate action plan to take if red flag symptoms occur. Patient agreeable to treatment plan. Barbara Gracia APRN.CNP documented in this encounterMount [facility]06-24-[facility]22 History of Present illness Narrative* Fransisco Angel MD - 03/23/2022 4:18 PM EDT This note was created using Weblioter. Subjective Patient presents with: [facility] Antonia Coronado was here for above. She had Covid last month and recovered, other than a persistent dry cough. Albuterol helped. We reviewed her past history. Anxiety and depression was lately more seasonal worse during winter months. She had not been on active treatment for some time. She recalled taking lorazepam in the pastfor panic attacks. The history is provided by the patient. Review of Systems Constitutional: Negative. HENT: Negative. Eyes: Negative. Respiratory: Positive for cough. Negative for chest tightness, shortness of breath and wheezing. Cardiovascular: Negative. Gastrointestinal: Negative. Genitourinary: Negative. Musculoskeletal: Negative. Skin: Negative. Neurological: Negative. Psychiatric/Behavioral: Negative. PAST MEDICAL HISTORY Diagnosis Date Anxiety and depression 12/26/2015 Depression FRACTURE FOOT Hydronephrosis 08/25/2002 right hydronephrosis per [place] Marital conflict 02/12/2012 Obesity, unspecified 05/19/2012 05/19/2012Patient is obese. One-hour GCT drawn today. Panic 02/12/2012 Supervision of high-risk 06/13/2012 06/13/12 - RA done - v23 - KK Thyroid disease Thyroid nodule 02/18/2012 Unspecified essential hypertension 2007 Urinary calculus, unspecified 2001 Renal stones PAST SURGICAL HISTORY Procedure Laterality Date DELIVERY ONLY 12/31/12 , low transverse CHOLECYSTECTOMY 2000 Cholecystectomy DILATION & CURETTAGE DX&/THER NONOBSTETRIC 1999 Dilation & curettage EXTENSIVE FOOT SURGERY 07/2010 Left Foot PAST SURGICAL HISTORY OF 12-24-07 left plantar fasciotomy TONSILLECTOMY PRIMARY/SECONDARY AGE 121997 TUBAL LIGATION, 12/31/12 pptl at time of FAMILY HISTORY Problem Relation Age of Onset Cancer Mother LIVER, GALL BLADDER Diabetes Mother borderline blood sugars other (glaucoma [Other]) Maternal Grandmother Cancer Maternal Grandmother Seizures Daughter Asthma Son Social History Tobacco Use Smoking status: Former Smoker Years: 2.00 Quit date: 04/28/2012 Years since quittin.9 Smokeless tobacco: Never Used Tobacco comment: as a teen Vaping Use Vaping Use: Never used Substance Use Topics Alcohol use: Yes Comment: 1-2 mixed drinks per month Drug use: No Immunization History Administered Date(s) Administered COVID-19 vaccine, age 12+ yr (Online Dealer - PURPLE TOP) 02/14/2021 03/07/2021 Tdap (Age 7+) 04/13/2009 09/18/2015 03/11/2019 ALLERGIES Allergen Reactions Grass Pollen CONGESTION, ITCHY EYES Ivory [Other] UNKNOWN REACTION Naprosyn [Naproxen] Vomiting Current Outpatient Medications Medication Sig albuterol HFA (PROAIR HFA) 90 mcg/actuation inhaler Inhale 2 Puffs as instructed every 6 hours as needed for wheezing/shortness of breath. loratadine (CLARITIN) 10 mg tablet Take 1 tablet by mouth once daily. IBUPROFEN ORAL Take by mouth. ACETAMINOPHEN (TYLENOL ORAL) Take by mouth as needed. No current facility-administered medications for this visit. Objective BP (P) 134/78 (BP Site: Left Arm, BP Position: Sitting, BP Cuff Size: Large Adult) Pulse (P) 78 Temp (P) 36.4 C (97.5 F) (Temporal) Resp (P) 16 Ht (P) 170.2 cm (5' 7) Wt (P) 134.7 kg (297lb) LMP 01/23/2018 (Within Days) BMI (P) 46.52 kg/m Physical Exam Constitutional: Appearance: She is obese. She is not ill-appearing. HENT: Head: Normocephalic. Eyes: Conjunctiva/sclera: Conjunctivae normal. Neck: Thyroid: Thyromegaly present. Cardiovascular: Rate and Rhythm: Normal rate and regular rhythm. Heart sounds: No murmur heard. No gallop. Pulmonary: Effort: Pulmonary effort is normal. Breath sounds: Normal breath sounds. No wheezing or rales. Abdominal: Palpations: Abdomen is soft. Tenderness: There is no abdominal tenderness. Musculoskeletal: General: Normal range of motion. Cervical back: No tenderness. Right lower leg: No edema. Left lower leg: No edema. Lymphadenopathy: Cervical: No cervical adenopathy. Neurological: General: No focal deficit present. Mental Status: She is alert. Gait: Gait normal. Psychiatric: Mood and Affect: Mood normal. Behavior: Behavior normal. Assessment and Plan 1. Routine medical exam - ICD9: V70.0, ICD10: Z00.00 (primary diagnosis) - Counseled on healthy diet and regular exercise - Discussed need and benefit for weight loss. No weight on file for this encounter. - Mammogram ordered - exam recommended once yearly - Depression screening tool completed and reviewed with patient. Based on score and interview, patient is at risk for depression and recommended no further intervention at this time. - CBC - COMP METABOLIC PANEL - LIPID PANEL BASIC 2. Obesity, Class III, BMI 40-49.9 (morbid obesity) (HCC) - ICD9: 278.01, ICD10: E66.01 Stable - Behavioral intervention 3. Anxiety and depression - ICD9: 300.00, 311, ICD10: F41.9, F32.A Stable and self managed. 4. Bronchospasm - ICD9: 519.11, ICD10: J98.01 Refilled albuterol. 5. Goiter, nontoxic, multinodular - ICD9: 241.1, ICD10: E04.2 - TSH BLD - T4 FREE/FREE THYROX 6. Screening for cervical cancer - ICD9: V76.2, ICD10: Z12.4 - CONSULT TO GYNECOLOGY 7. Encounter for hepatitis C screening test for low risk patient - ICD9: V73.89, ICD10: Z11.59 - HEP C AB IA W/CONF SCRN 8. Screening for colon cancer - ICD9: V76.51, ICD10: Z12.11 - FECAL OCCULT BLOOD TEST 9. Encounter for screening mammogram for malignant neoplasm of breast - ICD9: V76.12, ICD10: Z12.31 - RUFINO SCREENING 10. Elevated blood pressure reading in office with diagnosis of hypertension - ICD9: 401.9, ICD10: I10 - suboptimal control - Encouraged dietary sodium restriction/DASH diet - Goal of BP <130/80 Wilson Angel, MD documented in this encounterMount Carmel [facility]05-23-2022 History of Present illness Narrative* Yanelis Yadav RT(R) - 02/19/2022 2:40 PM EDT Radiology Service Progress Note PATIENT NAME: Antonia Coronado DATE OF SERVICE: February 19, 2022 TIME: 2:35 PM PATIENT IDENTITY VERIFICATION COMPLETED USING TWO (2) IDENTIFIERS: Name and Date of confirmedby patient verbally. FALL SCREENING: Has the patient had 2 falls in the last year or 1 fall with injury or currently using an Ambulatory Assistive Device (Walker, Cane, Wheelchair, Crutches, etc.)? No PATIENT GENDER DATA: Female. status: : No status: NO. PATIENT RELEVANT IMPLANT DATA REVIEWED: Not Applicable RADIOLOGY DEPARTMENT: General X-ray: Exam(s) Completed: Chest X-Ray PERIPHERAL IV DATA: Not applicable SIGNED BY: RT Faustina(R) February 19, 2022 2:35 PM documented in this encounterMount Carmel Health System05-23-2022 History of Present illness Narrative* Fransisco Angel MD - 02/19/2022 2:15 PM EDT This note was created using [employer]. Subjective Antonia Coronado is a 46 year old female. She started having URI symptoms 01/29/22 and was seen in 02/03/22 where she tested positive for Covid. Her fever resolved 02/07. Most other symptoms resolved except for persistent cough, wheezing dyspnea. Albuterol provided relief for about 2 hours. Review of Systems Constitutional: Negative for appetite change, chills and fever. HENT: Negative for congestion and sore throat. Respiratory: Positive for cough, shortness of breath and wheezing. Cardiovascular: Negative for chest pain and palpitations. Gastrointestinal: Negative for diarrhea, nausea and vomiting. Musculoskeletal: Negative. ACTIVE PROBLEM LIST Seasonal Allergies Panic Marital Conflict Thyroid Nodule History of Hypertension Obesity, Unspecified History of Depression History of Kidney Stones Anxiety and Depression Moderate Episode of Recurrent Major Depressive Disorder (Hcc) Social History Tobacco Use Smoking status: Former Smoker Years: 2.00 Quit date: 04/28/2012 Years since quittin.8 Smokeless tobacco: Never Used Tobacco comment: as a teen Substance Use Topics Alcohol use: Yes Comment: Rarely,NOT WHILE Drug use: No Current Outpatient Medications Medication Sig fluticasone (FLONASE) 50 mcg/actuation nasal spray Use 2 Sprays in each nostril once daily. Rinse mouth after use. loratadine (CLARITIN) 10 mg tablet Take 1 tablet by mouth once daily. albuterol HFA (PROAIR HFA) 90 mcg/actuation inhaler Inhale 2 Puffs as instructed every 6 hours as needed. IBUPROFEN ORAL Take by mouth. albuterol HFA (PROAIR HFA) 90 mcg/actuation inhaler Inhale 2 Puffs as instructed every 4 hours as needed. ACETAMINOPHEN (TYLENOL ORAL) Take by mouth as needed. No current facility-administered medications for this visit. Objective BP 124/80 (BP Site: Right Arm, BP Position: Sitting, BP Cuff Size: Large Adult) Pulse 80 Temp 36 C (96.8 F) (Temporal Artery) Resp 28 Wt 135.2 kg (298 lb) LMP 01/23/2018 (Within Days) SpO2 96% BMI 46.67 kg/m Physical Exam Constitutional: Appearance: She is not diaphoretic. Cardiovascular: Rate and Rhythm: Normal rate and regular rhythm. Heart sounds: No murmur heard. No gallop. Pulmonary: Effort: Respiratory distress present. No accessory muscle usage. Breath sounds: Wheezing present. No rales. Comments: Recurrent non productive cough. Musculoskeletal: Right lower leg: No edema. Left lower leg: No edema. Assessment and Plan 1. Bronchospasm - ICD9: 519.11, ICD10: J98.01 (primary diagnosis) - XR CHEST 2V FRONTAL/LAT - PREDNISONE 10 MG TABLET - CODEINE 10 MG-GUAIFENESIN 100 MG/5 ML ORAL LIQUID Discussed medication dosage, usage, goals of therapy, and side effects. She denied any history of addiction or substance abuse. 2. COVID-19 - ICD9: 079.89, ICD10: U07.1 Onset 01/29/22. Isolation completed. Seek medical attention if with no improvement or go to ER if worse. Fransisco Angel MD documented in this encounterMount Carmel [facility]05-07-2022 History of Present illness Narrative* Barbara Older, SENIOR UI UX DEVELOPER.METHODS ANALYST - 02/03/2022 1:58 PM EDT CC: Patient presents with: Fatigue: fever, + home Covid AM, SOB Ear Problem: bilateral ear plugged, [place] pain rated 5 HPI: Antonia Coronado is a 46 year old female who presents to the office with above complaint. She had a positive home test however her employer requires a PCR test to be excused Symptoms began 5 days ago and include: Fever (?100.4F): Yes or Chills: Yes Cough: Yes Shortness of breath: No or Difficulty breathing: No Fatigue: Yes Muscle aches: Yes Headache: Yes New loss of smell or taste: No Sore throat: No Nasal congestion: Yes or Rhinorrhea: No Nausea: No or Vomiting: No Diarrhea: No Other Associated symptoms: none. OTC meds/remedies that patient has tried: OTC cold medicine. Exposures: Sick contacts? Yes Family or close contacts with confirmed/probable COVID-19 in last 14 days? No COVID vaccine: yes The ROS is otherwise negative. The patient's pmh, medications, allergies, and past visits are reviewed. PHYSICAL EXAM: BP 132/80 Pulse 98 Temp 36.5 C (97.7 F) Resp 20 Wt 134.3 kg (296 lb) LMP 01/23/2018 (Within Days) SpO2 97% BMI 46.36 kg/m General appearance: tired/ill appearing, alert, cooperative, pleasant, in no acute distress Head: Normocephalic Eyes: conjunctiva pink and moist, no icterus, sclera white, non-injected Ears: Right ear: External ear/canal- Normal, TM - clear with good landmarks. Left ear: External ear/canal- Normal, TM - clear with good landmarks Nose: clear. Oropharynx:moist without lesions Neck:supple and no adenopathy Heart: Negative. RRR without obvious murmur, gallop, or rubs. No ectopy. Lungs: clear to auscultation, without rales or wheeze, good air exchange ASSESSMENT/PLAN: 1. Suspected COVID-19 virus infection - ICD9: V01.79, ICD10: Z20.822 - Meets symptom-based criteria for testing and is low risk. - COVID swab collected at time of office visit - Instructed to isolate pending test results - Discussed symptom monitoring and supportive care - Red flag symptoms requiring follow up discussed - 2018 CORONAVIRUS Prescription instructions reviewed with patient as applicable. Potential red flag symptoms discussed with the patient. Reviewed appropriate action plan to take if red flag symptoms occur. Patient agreeable to treatment plan. Barbara Gracia APRN.CNP documented in this encounterMount Carmel Health System05-20-2017 History of Past illness Narrative* Problem Noted Date Resolved Date Trapezius strain 02/16/2017 12/15/2021 Muscle strain of scapular region 02/16/2017 12/15/2021 Anxiety 12/19/2016 12/15/2021 UTI in 09/12/2012 12/15/2021 Overview: 09/12: macrobid given Supervision of high-risk 06/13/2012 12/15/2021 Overview: 06/13/12 - RA done - v23 - KK Advanced maternal age in 05/19/2012 12/15/2021 Overview: 05/19/2012 She is 36 years old. Advanced maternal age discussed. [facility] handouts on Genetic Amniocentesis, CV[facility], Quad marker screen and early screening in given and discussed. Level II ultrasound and 's services discussed. Patient requested diagnostic testing 05/19/2012 12/15/2021 Overview: 07/21/2012negative Sequential screen first trimester. The first part of the Sequential Screen reports that her risk for Down syndrome decreased from her age-related risk of 1:170 to 1:4,800 and her Trisomy 18 risk decreased from her age-related risk of 1:590 to 1:10,000. Based on these results Dr. Mei's recommendation is for patient to follow-up with Sequential second trimester screening (08/05-08/19) and level II anatomy scan after 18wks. 06/06/12 - NT ordered - KK 05/19/2012 Patient desires early screening in with sequential testing. Quit smoking 05/19/2012 12/15/2021 Overview: 06/06/12 - encouraged continued cessation - KK 05/19/2012 Pt recently quit smoking April 28, 2012. Discussed risks of smoking during and advised pt to continue not smoking. Contusion of unspecified site 12/10/2011 Capsulitis 07/13/2010 06/13/2012 Syncope and collapse 11/22/2009 07/03/2016 Tibialis tendinitis 11/14/2009 06/13/2012 Nontraumatic rupture of other tendons of foot an d ankle 04/11/2009 06/13/2012 Pain in limb 04/05/2009 02/11/2012 Sprain of foot, unspecified site 12/21/2008 02/11/2012 Congenital pes planus 12/21/2008 06/13/2012 Calcaneal spur 12/21/2008 06/13/2012 Achilles bursitis or tendinitis 03/18/2008 06/13/2012 Equinus deformity of foot, acquired 03/18/2008 06/13/2012 PLANTAR fasciitis 05/20/2007 06/13/2012 Closed fracture of metatarsal bone(s) 09/28/2005 06/13/2012 documented as of this encounter (statuses as of 02/03/2022) [facility] History of Past illness Narrative* Problem Noted Date Resolved Date Trapezius strain 02/16/2017 12/15/2021 Muscle strain of scapular region 02/16/2017 12/15/2021 Anxiety 12/19/2016 12/15/2021 UTI in 09/12/2012 12/15/2021 Overview: 09/12: macrobid given Supervision of high-risk 06/13/2012 12/15/2021 Overview: 06/13/12 - RA done - v23 - KK Advanced maternal age in 05/19/2012 12/15/2021 Overview: 05/19/2012 She is 36 years old. Advanced maternal age discussed. [facility] handouts on Genetic Amniocentesis, CVS, Quad marker screen and early screening in given and discussed. Level II ultrasound and 's services discussed. Patient requested diagnostic testing 05/19/2012 12/15/2021 Overview: 07/21/2012negative Sequential screen first trimester. The first part of the Sequential Screen reports that her risk for Down syndrome decreased from her age-related risk of 1:170 to 1:4,800 and her Trisomy 18 risk decreased from her age-related risk of 1:590 to 1:10,000. Based on these results Dr. Mei's recommendation is for patient to follow-up with Sequential second trimester screening (08/05-08/19) and level II anatomy scan after 18wks. 06/06/12 - NT ordered - 05/19/2012 Patient desires early screening in with sequential testing. Quit smoking 05/19/2012 12/15/2021 Overview: 06/06/12 - encouraged continued cessation - KK 05/19/2012 Pt recently quit smoking April 28, 2012. Discussed risks of smoking during and advised pt to continue not smoking. Contusion of unspecified site 12/10/2011 Capsulitis 07/13/2010 06/13/2012 Syncope and collapse 11/22/2009 07/03/2016 Tibialis tendinitis 11/14/2009 06/13/2012 Nontraumatic rupture of other tendons of foot an d ankle 04/11/2009 06/13/2012 Pain in limb 04/05/2009 02/11/2012 Sprain of foot, unspecified site 12/21/2008 02/11/2012 Congenital pes planus 12/21/2008 06/13/2012 Calcaneal spur 12/21/2008 06/13/2012 Achilles bursitis or tendinitis 03/18/2008 06/13/2012 Equinus deformity of foot, acquired 03/18/2008 06/13/2012 PLANTAR fasciitis 05/20/2007 06/13/2012 Closed fracture of metatarsal bone(s) 09/28/2005 06/13/2012 documented as of this encounter (statuses as of 02/19/2022) [facility] of Past illness Narrative* Problem Noted Date Resolved Date Trapezius strain 02/16/2017 12/15/2021 Muscle strain of scapular region 02/16/2017 12/15/2021 Anxiety 12/19/2016 12/15/2021 Moderate episode of recurrent major depressive d isorder 12/19/2016 03/23/2022 UTI in 09/12/2012 12/15/2021 Overview: 09/12: macrobid given Supervision of high-risk 06/13/2012 12/15/2021 Overview: 06/13/12 - RA done - v23 - KK History of hypertension 05/19/2012 03/23/20 Overview: 06/06/12 - BP normal at 7 weeks - KK 05/19/2012Patient states she was diagnosed with hypertension 5 years ago. She states she has been treated by Dr. Dudley in the past. She has been off medication for the past 4 years. Advanced maternal age in 05/19/2012 12/15/2021 Overview: 05/19/2012 She is 36 years old. Advanced maternal age discussed. [facility] handouts on Genetic Amniocentesis, CVS, Quad marker screen and early screening in given and discussed. Level II ultrasound and 's services discussed. Patient requested diagnostic testing 05/19/2012 12/15/2021 Overview: 07/21/2012negative Sequential screen first trimester. The first part of the Sequential Screen reports that her risk for Down syndrome decreased from her age-related risk of 1:170 to 1:4,800 and her Trisomy 18 risk decreased from her age-related risk of 1:590 to 1:10,000. Based on these results Dr. Mei's recommendation is for patient to follow-up with Sequential second trimester screening (08/05-08/19) and level II anatomy scan after 18wks. 06/06/12 - NT ordered - KK 05/19/2012 Patient desires early screening in with sequential testing. Obesity, unspecified 05/19/2012 03/23/2022 Overview: 05/19/2012Patient is obese. One-hour GCT drawn today. History of depression 05/19/2012 03/23/2022 Overview: 06/06/12 - doing well off meds - KK 05/19/2012 Pt has a history of depression diagnosed 5 years ago. She has been off medication for 2-3 weeks . She has been treated by Dr. Dudley and Carmen Corey in the past. Discussed increased risks of depression during and and importance of reporting the development or worsening of symptoms should they occur. Pt denies ever having any suicidal thoughts or tendencies or thoughts of hurting others. Quit smoking 05/19/2012 12/15/2021 Overview: 06/06/12 - encouraged continued cessation - 05/19/2012 Pt recently quit smoking April 28, 2012. Discussed risks of smoking during and advised pt to continue not smoking. History of kidney stones 05/19/2012 022 Overview: 05/19/2012 Patient has a history of right hydronephrosis and kidney stones in 2001. Thyroid nodule 02/18/2012 03/23/2022 Panic 02/12/2012 03/23/2022 Marital conflict 02/12/2012 03/23/2022 Contusion of unspecified site 12/10/2011 Capsulitis 07/13/2010 06/13/2012 Seasonal allergies 11/22/2009 03/23/2022 Syncope and collapse 11/22/2009 07/03/2016 Tibialis tendinitis 11/14/2009 06/13/2012 Nontraumatic rupture of other tendons of foot an d ankle 04/11/2009 06/13/2012 Pain in limb 04/05/2009 02/11/2012 Sprain of foot, unspecified site 12/21/2008 02/11/2012 Congenital pes planus 12/21/2008 06/13/2012 Calcaneal spur 12/21/2008 06/13/2012 Achilles bursitis or tendinitis 03/18/2008 06/13/2012 Equinus deformity of foot, acquired 03/18/2008 06/13/2012 PLANTAR fasciitis 05/20/2007 06/13/2012 Closed fracture of metatarsal bone(s) 09/28/2005 06/13/2012 documented as of this encounter (statuses as of 03/25/2022) [facility] Past illness Narrative* Problem Noted Date Resolved Date Trapezius strain 02/16/2017 12/15/2021 Muscle strain of scapular region 02/16/2017 12/15/2021 Anxiety 12/19/2016 12/15/2021 Moderate episode of recurrent major depressive d isorder 12/19/2016 03/23/2022 UTI in 09/12/2012 12/15/2021 Overview: 09/12: macrobid given Supervision of high-risk 06/13/2012 12/15/2021 Overview: 06/13/12 - RA done - v23 - KK History of hypertension 05/19/2012 03/23/20 Overview: 06/06/12 - BP normal at 7 weeks - KK 05/19/2012Patient states she was diagnosed with hypertension 5 years ago. She states she has been treated by Dr. Dudley in the past. She has been off medication for the past 4 years. Advanced maternal age in 05/19/2012 12/15/2021 Overview: 05/19/2012 She is 36 years old. Advanced maternal age discussed. [facility] handouts on Genetic Amniocentesis, CVS, Quad marker screen and early screening in given and discussed. Level II ultrasound and 's services discussed. Patient requested diagnostic testing 05/19/2012 12/15/2021 Overview: 07/21/2012negative Sequential screen first trimester. The first part of the Sequential Screen reports that her risk for Down syndrome decreased from her age-related risk of 1:170 to 1:4,800 and her Trisomy 18 risk decreased from her age-related risk of 1:590 to 1:10,000. Based on these results Dr. Mei's recommendation is for patient to follow-up with Sequential second trimester screening (08/05-08/19) and level II anatomy scan after 18wks. 06/06/12 - NT ordered - 05/19/2012 Patient desires early screening in with sequential testing. Obesity, unspecified 05/19/2012 03/23/2022 Overview: 05/19/2012Patient is obese. One-hour GCT drawn today. History of depression 05/19/2012 03/23/2022 Overview: 06/06/12 - doing well off meds - 05/19/2012 Pt has a history of depression diagnosed 5 years ago. She has been off medication for 2-3 weeks . She has been treated by Dr. Dudley and [facility] Corey in the past. Discussed increased risks of depression during and and importance of reporting the development or worsening of symptoms should they occur. Pt denies ever having any suicidal thoughts or tendencies or thoughts of hurting others. Quit smoking 05/19/2012 12/15/2021 Overview: 06/06/12 - encouraged continued cessation - 05/19/2012 Pt recently quit smoking April 28, 2012. Discussed risks of smoking during and advised pt to continue not smoking. History of kidney stones 05/19/2012 022 Overview: 05/19/2012 Patient has a history of right hydronephrosis and kidney stones in 2001. Thyroid nodule 02/18/2012 03/23/2022 Panic 02/12/2012 03/23/2022 Marital conflict 02/12/2012 03/23/2022 Contusion of unspecified site 12/10/2011 Capsulitis 07/13/2010 06/13/2012 Seasonal allergies 11/22/2009 03/23/2022 Syncope and collapse 11/22/2009 07/03/2016 Tibialis tendinitis 11/14/2009 06/13/2012 Nontraumatic rupture of other tendons of foot an d ankle 04/11/2009 06/13/2012 Pain in limb 04/05/2009 02/11/2012 Sprain of foot, unspecified site 12/21/2008 02/11/2012 Congenital pes planus 12/21/2008 06/13/2012 Calcaneal spur 12/21/2008 06/13/2012 Achilles bursitis or tendinitis 03/18/2008 06/13/2012 Equinus deformity of foot, acquired 03/18/2008 06/13/2012 PLANTAR fasciitis 05/20/2007 06/13/2012 Closed fracture of metatarsal bone(s) 09/28/2005 06/13/2012 documented as of this encounter (statuses as of 05/23/2022) [facility]2017 History of Past illness Narrative* Problem Noted Date Resolved Date Trapezius strain 02/16/2017 12/15/2021 Muscle strain of scapular region 02/16/2017 12/15/2021 Anxiety 12/19/2016 12/15/2021 Moderate episode of recurrent major depressive d isorder 12/19/2016 03/23/2022 UTI in 09/12/2012 12/15/2021 Overview: 09/12: macrobid given Supervision of high-risk 06/13/2012 12/15/2021 Overview: 06/13/12 - RA done - v23 - KK History of hypertension 05/19/2012 03/23/20 Overview: 06/06/12 - BP normal at 7 weeks - KK 05/19/2012Patient states she was diagnosed with hypertension 5 years ago. She states she has been treated by Dr. Dudley in the past. She has been off medication for the past 4 years. Advanced maternal age in 05/19/2012 12/15/2021 Overview: 05/19/2012 She is 36 years old. Advanced maternal age discussed. [facility] handouts on Genetic Amniocentesis, [facility], Quad marker screen and early screening in given and discussed. Level II ultrasound and 's services discussed. Patient requested diagnostic testing 05/19/2012 12/15/2021 Overview: 07/21/2012negative Sequential screen first trimester. The first part of the Sequential Screen reports that her risk for Down syndrome decreased from her age-related risk of 1:170 to 1:4,800 and her Trisomy 18 risk decreased from her age-related risk of 1:590 to 1:10,000. Based on these results Dr. Mei's recommendation is for patient to follow-up with Sequential second trimester screening (08/05-08/19) and level II anatomy scan after 18wks. 06/06/12 - NT ordered - 05/19/2012 Patient desires early screening in with sequential testing. Obesity, unspecified 05/19/2012 03/23/2022 Overview: 05/19/2012Patient is obese. One-hour GCT drawn today. History of depression 05/19/2012 03/23/2022 Overview: 06/06/12 - doing well off meds - 05/19/2012 Pt has a history of depression diagnosed 5 years ago. She has been off medication for 2-3 weeks . She has been treated by Dr. Dudley and Carmen Corey in the past. Discussed increased risks of depression during and and importance of reporting the development or worsening of symptoms should they occur. Pt denies ever having any suicidal thoughts or tendencies or thoughts of hurting others. Quit smoking 05/19/2012 12/15/2021 Overview: 06/06/12 - encouraged continued cessation - 05/19/2012 Pt recently quit smoking April 28, 2012. Discussed risks of smoking during and advised pt to continue not smoking. History of kidney stones 05/19/2012 022 Overview: 05/19/2012 Patient has a history of right hydronephrosis and kidney stones in 2001. Thyroid nodule 02/18/2012 03/23/2022 Panic 02/12/2012 03/23/2022 Marital conflict 02/12/2012 03/23/2022 Contusion of unspecified site 12/10/2011 Capsulitis 07/13/2010 06/13/2012 Seasonal allergies 11/22/2009 03/23/2022 Syncope and collapse 11/22/2009 07/03/2016 Tibialis tendinitis 11/14/2009 06/13/2012 Nontraumatic rupture of other tendons of foot an d ankle 04/11/2009 06/13/2012 Pain in limb 04/05/2009 02/11/2012 Sprain of foot, unspecified site 12/21/2008 02/11/2012 Congenital pes planus 12/21/2008 06/13/2012 Calcaneal spur 12/21/2008 06/13/2012 Achilles bursitis or tendinitis 03/18/2008 06/13/2012 Equinus deformity of foot, acquired 03/18/2008 06/13/2012 PLANTAR fasciitis 05/20/2007 06/13/2012 Closed fracture of metatarsal bone(s) 09/28/2005 06/13/2012 documented as of this encounter (statuses as of 06/19/2022) [facility] History of Past illness Narrative* Problem Noted Date Resolved Date Trapezius strain 02/16/2017 12/15/2021 Muscle strain of scapular region 02/16/2017 12/15/2021 Anxiety 12/19/2016 12/15/2021 Moderate episode of recurrent major depressive d isorder 12/19/2016 03/23/2022 UTI in 09/12/2012 12/15/2021 Overview: 09/12: macrobid given Supervision of high-risk 06/13/2012 12/15/2021 Overview: 06/13/12 - RA done - v23 - KK History of hypertension 05/19/2012 03/23/20 Overview: 06/06/12 - BP normal at 7 weeks - KK 05/19/2012Patient states she was diagnosed with hypertension 5 years ago. She states she has been treated by Dr. Dudley in the past. She has been off medication for the past 4 years. Advanced maternal age in 05/19/2012 12/15/2021 Overview: 05/19/2012 She is 36 years old. Advanced maternal age discussed. [facility] handouts on Genetic Amniocentesis, [facility], Quad marker screen and early screening in given and discussed. Level II ultrasound and 's services discussed. Patient requested diagnostic testing 05/19/2012 12/15/2021 Overview: 07/21/2012negative Sequential screen first trimester. The first part of the Sequential Screen reports that her risk for Down syndrome decreased from her age-related risk of 1:170 to 1:4,800 and her Trisomy 18 risk decreased from her age-related risk of 1:590 to 1:10,000. Based on these results Dr. Mei's recommendation is for patient to follow-up with Sequential second trimester screening (08/05-08/19) and level II anatomy scan after 18wks. 06/06/12 - NT ordered - 05/19/2012 Patient desires early screening in with sequential testing. Obesity, unspecified 05/19/2012 03/23/2022 Overview: 05/19/2012Patient is obese. One-hour GCT drawn today. History of depression 05/19/2012 03/23/2022 Overview: 06/06/12 - doing well off meds - 05/19/2012 Pt has a history of depression diagnosed 5 years ago. She has been off medication for 2-3 weeks . She has been treated by Dr. Dudley and Carmen Corey in the past. Discussed increased risks of depression during and and importance of reporting the development or worsening of symptoms should they occur. Pt denies ever having any suicidal thoughts or tendencies or thoughts of hurting others. Quit smoking 05/19/2012 12/15/2021 Overview: 06/06/12 - encouraged continued cessation - 05/19/2012 Pt recently quit smoking April 28, 2012. Discussed risks of smoking during and advised pt to continue not smoking. History of kidney stones 05/19/2012 022 Overview: 05/19/2012 Patient has a history of right hydronephrosis and kidney stones in 2001. Thyroid nodule 02/18/2012 03/23/2022 Panic 02/12/2012 03/23/2022 Marital conflict 02/12/2012 03/23/2022 Contusion of unspecified site 12/10/2011 Capsulitis 07/13/2010 06/13/2012 Seasonal allergies 11/22/2009 03/23/2022 Syncope and collapse 11/22/2009 07/03/2016 Tibialis tendinitis 11/14/2009 06/13/2012 Nontraumatic rupture of other tendons of foot an d ankle 04/11/2009 06/13/2012 Pain in limb 04/05/2009 02/11/2012 Sprain of foot, unspecified site 12/21/2008 02/11/2012 Congenital pes planus 12/21/2008 06/13/2012 Calcaneal spur 12/21/2008 06/13/2012 Achilles bursitis or tendinitis 03/18/2008 06/13/2012 Equinus deformity of foot, acquired 03/18/2008 06/13/2012 PLANTAR fasciitis 05/20/2007 06/13/2012 Closed fracture of metatarsal bone(s) 09/28/2005 06/13/2012 documented as of this encounter (statuses as of 07/24/2022) [facility] History of Past illness Narrative* Problem Noted Date Resolved Date Trapezius strain 02/16/2017 12/15/2021 Muscle strain of scapular region 02/16/2017 12/15/2021 Anxiety 12/19/2016 12/15/2021 Moderate episode of recurrent major depressive d isorder 12/19/2016 03/23/2022 UTI in 09/12/2012 12/15/2021 Overview: 09/12: macrobid given Supervision of high-risk 06/13/2012 12/15/2021 Overview: 06/13/12 - RA done - v23 - KK History of hypertension 05/19/2012 03/23/20 Overview: 06/06/12 - BP normal at 7 weeks - KK 05/19/2012Patient states she was diagnosed with hypertension 5 years ago. She states she has been treated by Dr. Dudley in the past. She has been off medication for the past 4 years. Advanced maternal age in 05/19/2012 12/15/2021 Overview: 05/19/2012 She is 36 years old. Advanced maternal age discussed. [facility] handouts on Genetic Amniocentesis, [facility], Quad marker screen and early screening in given and discussed. Level II ultrasound and 's services discussed. Patient requested diagnostic testing 05/19/2012 12/15/2021 Overview: 07/21/2012negative Sequential screen first trimester. The first part of the Sequential Screen reports that her risk for Down syndrome decreased from her age-related risk of 1:170 to 1:4,800 and her Trisomy 18 risk decreased from her age-related risk of 1:590 to 1:10,000. Based on these results Dr. Mei's recommendation is for patient to follow-up with Sequential second trimester screening (08/05-08/19) and level II anatomy scan after 18wks. 06/06/12 - NT ordered - 05/19/2012 Patient desires early screening in with sequential testing. Obesity, unspecified 05/19/2012 03/23/2022 Overview: 05/19/2012Patient is obese. One-hour GCT drawn today. History of depression 05/19/2012 03/23/2022 Overview: 06/06/12 - doing well off meds - 05/19/2012 Pt has a history of depression diagnosed 5 years ago. She has been off medication for 2-3 weeks . She has been treated by Dr. Dudley and Carmen Corey in the past. Discussed increased risks of depression during and and importance of reporting the development or worsening of symptoms should they occur. Pt denies ever having any suicidal thoughts or tendencies or thoughts of hurting others. Quit smoking 05/19/2012 12/15/2021 Overview: 06/06/12 - encouraged continued cessation - 05/19/2012 Pt recently quit smoking April 28, 2012. Discussed risks of smoking during and advised pt to continue not smoking. History of kidney stones 05/19/2012 022 Overview: 05/19/2012 Patient has a history of right hydronephrosis and kidney stones in 2001. Thyroid nodule 02/18/2012 03/23/2022 Panic 02/12/2012 03/23/2022 Marital conflict 02/12/2012 03/23/2022 Contusion of unspecified site 12/10/2011 Capsulitis 07/13/2010 06/13/2012 Seasonal allergies 11/22/2009 03/23/2022 Syncope and collapse 11/22/2009 07/03/2016 Tibialis tendinitis 11/14/2009 06/13/2012 Nontraumatic rupture of other tendons of foot an d ankle 04/11/2009 06/13/2012 Pain in limb 04/05/2009 02/11/2012 Sprain of foot, unspecified site 12/21/2008 02/11/2012 Congenital pes planus 12/21/2008 06/13/2012 Calcaneal spur 12/21/2008 06/13/2012 Achilles bursitis or tendinitis 03/18/2008 06/13/2012 Equinus deformity of foot, acquired 03/18/2008 06/13/2012 PLANTAR fasciitis 05/20/2007 06/13/2012 Closed fracture of metatarsal bone(s) 09/28/2005 06/13/2012 documented as of this encounter (statuses as of 09/12/2022) [facility] History of Past illness Narrative* Problem Noted Date Resolved Date Trapezius strain 02/16/2017 12/15/2021 Muscle strain of scapular region 02/16/2017 12/15/2021 Anxiety 12/19/2016 12/15/2021 Moderate episode of recurrent major depressive d isorder 12/19/2016 03/23/2022 UTI in 09/12/2012 12/15/2021 Overview: 09/12: macrobid given Supervision of high-risk 06/13/2012 12/15/2021 Overview: 06/13/12 - RA done - v23 - KK History of hypertension 05/19/2012 03/23/20 Overview: 06/06/12 - BP normal at 7 weeks - KK 05/19/2012Patient states she was diagnosed with hypertension 5 years ago. She states she has been treated by Dr. Dudley in the past. She has been off medication for the past 4 years. Advanced maternal age in 05/19/2012 12/15/2021 Overview: 05/19/2012 She is 36 years old. Advanced maternal age discussed. [facility] handouts on Genetic Amniocentesis, [facility], Quad marker screen and early screening in given and discussed. Level II ultrasound and 's services discussed. Patient requested diagnostic testing 05/19/2012 12/15/2021 Overview: 07/21/2012negative Sequential screen first trimester. The first part of the Sequential Screen reports that her risk for Down syndrome decreased from her age-related risk of 1:170 to 1:4,800 and her Trisomy 18 risk decreased from her age-related risk of 1:590 to 1:10,000. Based on these results Dr. Mei's recommendation is for patient to follow-up with Sequential second trimester screening (08/05-08/19) and level II anatomy scan after 18wks. 06/06/12 - NT ordered - 05/19/2012 Patient desires early screening in with sequential testing. Obesity, unspecified 05/19/2012 03/23/2022 Overview: 05/19/2012Patient is obese. One-hour GCT drawn today. History of depression 05/19/2012 03/23/2022 Overview: 06/06/12 - doing well off meds - 05/19/2012 Pt has a history of depression diagnosed 5 years ago. She has been off medication for 2-3 weeks . She has been treated by Dr. Dudley and Carmen Corey in the past. Discussed increased risks of depression during and and importance of reporting the development or worsening of symptoms should they occur. Pt denies ever having any suicidal thoughts or tendencies or thoughts of hurting others. Quit smoking 05/19/2012 12/15/2021 Overview: 06/06/12 - encouraged continued cessation - KK 05/19/2012 Pt recently quit smoking April 28, 2012. Discussed risks of smoking during and advised pt to continue not smoking. History of kidney stones 05/19/2012 022 Overview: 05/19/2012 Patient has a history of right hydronephrosis and kidney stones in 2001. Thyroid nodule 02/18/2012 03/23/2022 Panic 02/12/2012 03/23/2022 Marital conflict 02/12/2012 03/23/2022 Contusion of unspecified site 12/10/2011 Capsulitis 07/13/2010 06/13/2012 Seasonal allergies 11/22/2009 03/23/2022 Syncope and collapse 11/22/2009 07/03/2016 Tibialis tendinitis 11/14/2009 06/13/2012 Nontraumatic rupture of other tendons of foot an d ankle 04/11/2009 06/13/2012 Pain in limb 04/05/2009 02/11/2012 Sprain of foot, unspecified site 12/21/2008 02/11/2012 Congenital pes planus 12/21/2008 06/13/2012 Calcaneal spur 12/21/2008 06/13/2012 Achilles bursitis or tendinitis 03/18/2008 06/13/2012 Equinus deformity of foot, acquired 03/18/2008 06/13/2012 PLANTAR fasciitis 05/20/2007 06/13/2012 Closed fracture of metatarsal bone(s) 09/28/2005 06/13/2012 documented as of this encounter (statuses as of 10/04/2022) [facility] History of Past illness Narrative* Problem Noted Date Resolved Date Trapezius strain 02/16/2017 12/15/2021 Muscle strain of scapular region 02/16/2017 12/15/2021 Anxiety 12/19/2016 12/15/2021 Moderate episode of recurrent major depressive d isorder 12/19/2016 03/23/2022 UTI in 09/12/2012 12/15/2021 Overview: 09/12: macrobid given Supervision of high-risk 06/13/2012 12/15/2021 Overview: 06/13/12 - RA done - v23 - KK History of hypertension 05/19/2012 03/23/20 Overview: 06/06/12 - BP normal at 7 weeks - KK 05/19/2012Patient states she was diagnosed with hypertension 5 years ago. She states she has been treated by Dr. Dudley in the past. She has been off medication for the past 4 years. Advanced maternal age in 05/19/2012 12/15/2021 Overview: 05/19/2012 She is 36 years old. Advanced maternal age discussed. [facility] handouts on Genetic Amniocentesis, CV[facility], Quad marker screen and early screening in given and discussed. Level II ultrasound and 's services discussed. Patient requested diagnostic testing 05/19/2012 12/15/2021 Overview: 07/21/2012negative Sequential screen first trimester. The first part of the Sequential Screen reports that her risk for Down syndrome decreased from her age-related risk of 1:170 to 1:4,800 and her Trisomy 18 risk decreased from her age-related risk of 1:590 to 1:10,000. Based on these results Dr. Mei's recommendation is for patient to follow-up with Sequential second trimester screening (08/05-08/19) and level II anatomy scan after 18wks. 06/06/12 - NT ordered - KK 05/19/2012 Patient desires early screening in with sequential testing. Obesity, unspecified 05/19/2012 03/23/2022 Overview: 05/19/2012Patient is obese. One-hour GCT drawn today. History of depression 05/19/2012 03/23/2022 Overview: 06/06/12 - doing well off meds - KK 05/19/2012 Pt has a history of depression diagnosed 5 years ago. She has been off medication for 2-3 weeks . She has been treated by Dr. Dudley and Carmen Corey in the past. Discussed increased risks of depression during and and importance of reporting the development or worsening of symptoms should they occur. Pt denies ever having any suicidal thoughts or tendencies or thoughts of hurting others. Quit smoking 05/19/2012 12/15/2021 Overview: 06/06/12 - encouraged continued cessation - KK 05/19/2012 Pt recently quit smoking April 28, 2012. Discussed risks of smoking during and advised pt to continue not smoking. History of kidney stones 05/19/2012 022 Overview: 05/19/2012 Patient has a history of right hydronephrosis and kidney stones in 2001. Thyroid nodule 02/18/2012 03/23/2022 Panic 02/12/2012 03/23/2022 Marital conflict 02/12/2012 03/23/2022 Contusion of unspecified site 12/10/2011 Capsulitis 07/13/2010 06/13/2012 Seasonal allergies 11/22/2009 03/23/2022 Syncope and collapse 11/22/2009 07/03/2016 Tibialis tendinitis 11/14/2009 06/13/2012 Nontraumatic rupture of other tendons of foot an d ankle 04/11/2009 06/13/2012 Pain in limb 04/05/2009 02/11/2012 Sprain of foot, unspecified site 12/21/2008 02/11/2012 Congenital pes planus 12/21/2008 06/13/2012 Calcaneal spur 12/21/2008 06/13/2012 Achilles bursitis or tendinitis 03/18/2008 06/13/2012 Equinus deformity of foot, acquired 03/18/2008 06/13/2012 PLANTAR fasciitis 05/20/2007 06/13/2012 Closed fracture of metatarsal bone(s) 09/28/2005 06/13/2012 documented as of this encounter (statuses as of 10/23/2022) [facility] History of Past illness Narrative* Problem Noted Date Resolved Date Trapezius strain 02/16/2017 12/15/2021 Muscle strain of scapular region 02/16/2017 12/15/2021 Anxiety 12/19/2016 12/15/2021 Moderate episode of recurrent major depressive d isorder 12/19/2016 03/23/2022 UTI in 09/12/2012 12/15/2021 Overview: 09/12: macrobid given Supervision of high-risk 06/13/2012 12/15/2021 Overview: 06/13/12 - RA done - v23 - KK History of hypertension 05/19/2012 03/23/20 Overview: 06/06/12 - BP normal at 7 weeks - KK 05/19/2012Patient states she was diagnosed with hypertension 5 years ago. She states she has been treated by Dr. Dudley in the past. She has been off medication for the past 4 years. Advanced maternal age in 05/19/2012 12/15/2021 Overview: 05/19/2012 She is 36 years old. Advanced maternal age discussed. [facility] handouts on Genetic Amniocentesis, CVS, Quad marker screen and early screening in given and discussed. Level II ultrasound and 's services discussed. Patient requested diagnostic testing 05/19/2012 12/15/2021 Overview: 07/21/2012negative Sequential screen first trimester. The first part of the Sequential Screen reports that her risk for Down syndrome decreased from her age-related risk of 1:170 to 1:4,800 and her Trisomy 18 risk decreased from her age-related risk of 1:590 to 1:10,000. Based on these results Dr. Mei's recommendation is for patient to follow-up with Sequential second trimester screening (08/05-08/19) and level II anatomy scan after 18wks. 06/06/12 - NT ordered - KK 05/19/2012 Patient desires early screening in with sequential testing. Obesity, unspecified 05/19/2012 03/23/2022 Overview: 05/19/2012Patient is obese. One-hour GCT drawn today. History of depression 05/19/2012 03/23/2022 Overview: 06/06/12 - doing well off meds - KK 05/19/2012 Pt has a history of depression diagnosed 5 years ago. She has been off medication for 2-3 weeks . She has been treated by Dr. Dudley and Carmen Corey in the past. Discussed increased risks of depression during and and importance of reporting the development or worsening of symptoms should they occur. Pt denies ever having any suicidal thoughts or tendencies or thoughts of hurting others. Quit smoking 05/19/2012 12/15/2021 Overview: 06/06/12 - encouraged continued cessation - KK 05/19/2012 Pt recently quit smoking April 28, 2012. Discussed risks of smoking during and advised pt to continue not smoking. History of kidney stones 05/19/2012 022 Overview: 05/19/2012 Patient has a history of right hydronephrosis and kidney stones in 2001. Thyroid nodule 02/18/2012 03/23/2022 Panic 02/12/2012 03/23/2022 Marital conflict 02/12/2012 03/23/2022 Contusion of unspecified site 12/10/2011 Capsulitis 07/13/2010 06/13/2012 Seasonal allergies 11/22/2009 03/23/2022 Syncope and collapse 11/22/2009 07/03/2016 Tibialis tendinitis 11/14/2009 06/13/2012 Nontraumatic rupture of other tendons of foot an d ankle 04/11/2009 06/13/2012 Pain in limb 04/05/2009 02/11/2012 Sprain of foot, unspecified site 12/21/2008 02/11/2012 Congenital pes planus 12/21/2008 06/13/2012 Calcaneal spur 12/21/2008 06/13/2012 Achilles bursitis or tendinitis 03/18/2008 06/13/2012 Equinus deformity of foot, acquired 03/18/2008 06/13/2012 PLANTAR fasciitis 05/20/2007 06/13/2012 Closed fracture of metatarsal bone(s) 09/28/2005 06/13/2012 documented as of this encounter (statuses as of 11/13/2022) [facility] History of Past illness Narrative* Problem Noted Date Resolved Date Trapezius strain 02/16/2017 12/15/2021 Muscle strain of scapular region 02/16/2017 12/15/2021 Anxiety 12/19/2016 12/15/2021 Moderate episode of recurrent major depressive d isorder 12/19/2016 03/23/2022 UTI in 09/12/2012 12/15/2021 Overview: 09/12: macrobid given Supervision of high-risk 06/13/2012 12/15/2021 Overview: 06/13/12 - RA done - v23 - KK History of hypertension 05/19/2012 03/23/20 Overview: 06/06/12 - BP normal at 7 weeks - KK 05/19/2012Patient states she was diagnosed with hypertension 5 years ago. She states she has been treated by Dr. Dudley in the past. She has been off medication for the past 4 years. Advanced maternal age in 05/19/2012 12/15/2021 Overview: 05/19/2012 She is 36 years old. Advanced maternal age discussed. [facility] handouts on Genetic Amniocentesis, CVS, Quad marker screen and early screening in given and discussed. Level II ultrasound and 's services discussed. Patient requested diagnostic testing 05/19/2012 12/15/2021 Overview: 07/21/2012negative Sequential screen first trimester. The first part of the Sequential Screen reports that her risk for Down syndrome decreased from her age-related risk of 1:170 to 1:4,800 and her Trisomy 18 risk decreased from her age-related risk of 1:590 to 1:10,000. Based on these results Dr. Mei's recommendation is for patient to follow-up with Sequential second trimester screening (08/05-08/19) and level II anatomy scan after 18wks. 06/06/12 - NT ordered - KK 05/19/2012 Patient desires early screening in with sequential testing. Obesity, unspecified 05/19/2012 03/23/2022 Overview: 05/19/2012Patient is obese. One-hour GCT drawn today. History of depression 05/19/2012 03/23/2022 Overview: 06/06/12 - doing well off meds - KK 05/19/2012 Pt has a history of depression diagnosed 5 years ago. She has been off medication for 2-3 weeks . She has been treated by Dr. Dudley and Carmen Corey in the past. Discussed increased risks of depression during and and importance of reporting the development or worsening of symptoms should they occur. Pt denies ever having any suicidal thoughts or tendencies or thoughts of hurting others. Quit smoking 05/19/2012 12/15/2021 Overview: 06/06/12 - encouraged continued cessation - KK 05/19/2012 Pt recently quit smoking April 28, 2012. Discussed risks of smoking during and advised pt to continue not smoking. History of kidney stones 05/19/2012 022 Overview: 05/19/2012 Patient has a history of right hydronephrosis and kidney stones in 2001. Thyroid nodule 02/18/2012 03/23/2022 Panic 02/12/2012 03/23/2022 Marital conflict 02/12/2012 03/23/2022 Contusion of unspecified site 12/10/2011 Capsulitis 07/13/2010 06/13/2012 Seasonal allergies 11/22/2009 03/23/2022 Syncope and collapse 11/22/2009 07/03/2016 Tibialis tendinitis 11/14/2009 06/13/2012 Nontraumatic rupture of other tendons of foot an d ankle 04/11/2009 06/13/2012 Pain in limb 04/05/2009 02/11/2012 Sprain of foot, unspecified site 12/21/2008 02/11/2012 Congenital pes planus 12/21/2008 06/13/2012 Calcaneal spur 12/21/2008 06/13/2012 Achilles bursitis or tendinitis 03/18/2008 06/13/2012 Equinus deformity of foot, acquired 03/18/2008 06/13/2012 PLANTAR fasciitis 05/20/2007 06/13/2012 Closed fracture of metatarsal bone(s) 09/28/2005 06/13/2012 documented as of this encounter (statuses as of 11/15/2022) [facility] History of Past illness Narrative* Problem Noted Date Resolved Date Trapezius strain 02/16/2017 12/15/2021 Muscle strain of scapular region 02/16/2017 12/15/2021 Anxiety 12/19/2016 12/15/2021 Moderate episode of recurrent major depressive d isorder 12/19/2016 03/23/2022 UTI in 09/12/2012 12/15/2021 Overview: 09/12: macrobid given Supervision of high-risk 06/13/2012 12/15/2021 Overview: 06/13/12 - RA done - v23 - KK History of hypertension 05/19/2012 03/23/20 Overview: 06/06/12 - BP normal at 7 weeks - KK 05/19/2012Patient states she was diagnosed with hypertension 5 years ago. She states she has been treated by Dr. Dudley in the past. She has been off medication for the past 4 years. Advanced maternal age in 05/19/2012 12/15/2021 Overview: 05/19/2012 She is 36 years old. Advanced maternal age discussed. [facility] handouts on Genetic Amniocentesis, [facility], Quad marker screen and early screening in given and discussed. Level II ultrasound and 's services discussed. Patient requested diagnostic testing 05/19/2012 12/15/2021 Overview: 07/21/2012negative Sequential screen first trimester. The first part of the Sequential Screen reports that her risk for Down syndrome decreased from her age-related risk of 1:170 to 1:4,800 and her Trisomy 18 risk decreased from her age-related risk of 1:590 to 1:10,000. Based on these results Dr. Mie's recommendation is for patient to follow-up with Sequential second trimester screening (08/05-08/19) and level II anatomy scan after 18wks. 06/06/12 - NT ordered - KK 05/19/2012 Patient desires early screening in with sequential testing. Obesity, unspecified 05/19/2012 03/23/2022 Overview: 05/19/2012Patient is obese. One-hour GCT drawn today. History of depression 05/19/2012 03/23/2022 Overview: 06/06/12 - doing well off meds - KK 05/19/2012 Pt has a history of depression diagnosed 5 years ago. She has been off medication for 2-3 weeks . She has been treated by Dr. Dudley and Carmen Corey in the past. Discussed increased risks of depression during and and importance of reporting the development or worsening of symptoms should they occur. Pt denies ever having any suicidal thoughts or tendencies or thoughts of hurting others. Quit smoking 05/19/2012 12/15/2021 Overview: 06/06/12 - encouraged continued cessation - KK 05/19/2012 Pt recently quit smoking April 28, 2012. Discussed risks of smoking during and advised pt to continue not smoking. History of kidney stones 05/19/2012 022 Overview: 05/19/2012 Patient has a history of right hydronephrosis and kidney stones in 2001. Thyroid nodule 02/18/2012 03/23/2022 Panic 02/12/2012 03/23/2022 Marital conflict 02/12/2012 03/23/2022 Contusion of unspecified site 12/10/2011 Capsulitis 07/13/2010 06/13/2012 Seasonal allergies 11/22/2009 03/23/2022 Syncope and collapse 11/22/2009 07/03/2016 Tibialis tendinitis 11/14/2009 06/13/2012 Nontraumatic rupture of other tendons of foot an d ankle 04/11/2009 06/13/2012 Pain in limb 04/05/2009 02/11/2012 Sprain of foot, unspecified site 12/21/2008 02/11/2012 Congenital pes planus 12/21/2008 06/13/2012 Calcaneal spur 12/21/2008 06/13/2012 Achilles bursitis or tendinitis 03/18/2008 06/13/2012 Equinus deformity of foot, acquired 03/18/2008 06/13/2012 PLANTAR fasciitis 05/20/2007 06/13/2012 Closed fracture of metatarsal bone(s) 09/28/2005 06/13/2012 documented as of this encounter (statuses as of 11/17/2022) [facility] History of Past illness Narrative* Problem Noted Date Resolved Date Trapezius strain 02/16/2017 12/15/2021 Muscle strain of scapular region 02/16/2017 12/15/2021 Anxiety 12/19/2016 12/15/2021 Moderate episode of recurrent major depressive d isorder 12/19/2016 03/23/2022 UTI in 09/12/2012 12/15/2021 Overview: 09/12: macrobid given Supervision of high-risk 06/13/2012 12/15/2021 Overview: 06/13/12 - RA done - v23 - KK History of hypertension 05/19/2012 03/23/20 Overview: 06/06/12 - BP normal at 7 weeks - KK 05/19/2012Patient states she was diagnosed with hypertension 5 years ago. She states she has been treated by Dr. Dudley in the past. She has been off medication for the past 4 years. Advanced maternal age in 05/19/2012 12/15/2021 Overview: 05/19/2012 She is 36 years old. Advanced maternal age discussed. [facility] handouts on Genetic Amniocentesis, [facility], Quad marker screen and early screening in given and discussed. Level II ultrasound and 's services discussed. Patient requested diagnostic testing 05/19/2012 12/15/2021 Overview: 07/21/2012negative Sequential screen first trimester. The first part of the Sequential Screen reports that her risk for Down syndrome decreased from her age-related risk of 1:170 to 1:4,800 and her Trisomy 18 risk decreased from her age-related risk of 1:590 to 1:10,000. Based on these results Dr. Mei's recommendation is for patient to follow-up with Sequential second trimester screening (08/05-08/19) and level II anatomy scan after 18wks. 06/06/12 - NT ordered - 05/19/2012 Patient desires early screening in with sequential testing. Obesity, unspecified 05/19/2012 03/23/2022 Overview: 05/19/2012Patient is obese. One-hour GCT drawn today. History of depression 05/19/2012 03/23/2022 Overview: 06/06/12 - doing well off meds - 05/19/2012 Pt has a history of depression diagnosed 5 years ago. She has been off medication for 2-3 weeks . She has been treated by Dr. Dudley and Carmen Corey in the past. Discussed increased risks of depression during and and importance of reporting the development or worsening of symptoms should they occur. Pt denies ever having any suicidal thoughts or tendencies or thoughts of hurting others. Quit smoking 05/19/2012 12/15/2021 Overview: 06/06/12 - encouraged continued cessation - 05/19/2012 Pt recently quit smoking April 28, 2012. Discussed risks of smoking during and advised pt to continue not smoking. History of kidney stones 05/19/2012 022 Overview: 05/19/2012 Patient has a history of right hydronephrosis and kidney stones in 2001. Thyroid nodule 02/18/2012 03/23/2022 Panic 02/12/2012 03/23/2022 Marital conflict 02/12/2012 03/23/2022 Contusion of unspecified site 12/10/2011 Capsulitis 07/13/2010 06/13/2012 Seasonal allergies 11/22/2009 03/23/2022 Syncope and collapse 11/22/2009 07/03/2016 Tibialis tendinitis 11/14/2009 06/13/2012 Nontraumatic rupture of other tendons of foot an d ankle 04/11/2009 06/13/2012 Pain in limb 04/05/2009 02/11/2012 Sprain of foot, unspecified site 12/21/2008 02/11/2012 Congenital pes planus 12/21/2008 06/13/2012 Calcaneal spur 12/21/2008 06/13/2012 Achilles bursitis or tendinitis 03/18/2008 06/13/2012 Equinus deformity of foot, acquired 03/18/2008 06/13/2012 PLANTAR fasciitis 05/20/2007 06/13/2012 Closed fracture of metatarsal bone(s) 09/28/2005 06/13/2012 documented as of this encounter (statuses as of 12/08/2022) [facility] History of Past illness Narrative* Problem Noted Date Resolved Date Trapezius strain 02/16/2017 12/15/2021 Muscle strain of scapular region 02/16/2017 12/15/2021 Anxiety 12/19/2016 12/15/2021 Moderate episode of recurrent major depressive d isorder 12/19/2016 03/23/2022 UTI in 09/12/2012 12/15/2021 Overview: 09/12: macrobid given Supervision of high-risk 06/13/2012 12/15/2021 Overview: 06/13/12 - RA done - v23 - KK History of hypertension 05/19/2012 03/23/20 Overview: 06/06/12 - BP normal at 7 weeks - KK 05/19/2012Patient states she was diagnosed with hypertension 5 years ago. She states she has been treated by Dr. Dudley in the past. She has been off medication for the past 4 years. Advanced maternal age in 05/19/2012 12/15/2021 Overview: 05/19/2012 She is 36 years old. Advanced maternal age discussed. [facility] handouts on Genetic Amniocentesis, [facility], Quad marker screen and early screening in given and discussed. Level II ultrasound and 's services discussed. Patient requested diagnostic testing 05/19/2012 12/15/2021 Overview: 07/21/2012negative Sequential screen first trimester. The first part of the Sequential Screen reports that her risk for Down syndrome decreased from her age-related risk of 1:170 to 1:4,800 and her Trisomy 18 risk decreased from her age-related risk of 1:590 to 1:10,000. Based on these results Dr. Mei's recommendation is for patient to follow-up with Sequential second trimester screening (08/05-08/19) and level II anatomy scan after 18wks. 06/06/12 - NT ordered - 05/19/2012 Patient desires early screening in with sequential testing. Obesity, unspecified 05/19/2012 03/23/2022 Overview: 05/19/2012Patient is obese. One-hour GCT drawn today. History of depression 05/19/2012 03/23/2022 Overview: 06/06/12 - doing well off meds - 05/19/2012 Pt has a history of depression diagnosed 5 years ago. She has been off medication for 2-3 weeks . She has been treated by Dr. Dudley and Carmen Corey in the past. Discussed increased risks of depression during and and importance of reporting the development or worsening of symptoms should they occur. Pt denies ever having any suicidal thoughts or tendencies or thoughts of hurting others. Quit smoking 05/19/2012 12/15/2021 Overview: 06/06/12 - encouraged continued cessation - 05/19/2012 Pt recently quit smoking April 28, 2012. Discussed risks of smoking during and advised pt to continue not smoking. History of kidney stones 05/19/2012 022 Overview: 05/19/2012 Patient has a history of right hydronephrosis and kidney stones in 2001. Thyroid nodule 02/18/2012 03/23/2022 Panic 02/12/2012 03/23/2022 Marital conflict 02/12/2012 03/23/2022 Contusion of unspecified site 12/10/2011 Capsulitis 07/13/2010 06/13/2012 Seasonal allergies 11/22/2009 03/23/2022 Syncope and collapse 11/22/2009 07/03/2016 Tibialis tendinitis 11/14/2009 06/13/2012 Nontraumatic rupture of other tendons of foot an d ankle 04/11/2009 06/13/2012 Pain in limb 04/05/2009 02/11/2012 Sprain of foot, unspecified site 12/21/2008 02/11/2012 Congenital pes planus 12/21/2008 06/13/2012 Calcaneal spur 12/21/2008 06/13/2012 Achilles bursitis or tendinitis 03/18/2008 06/13/2012 Equinus deformity of foot, acquired 03/18/2008 06/13/2012 PLANTAR fasciitis 05/20/2007 06/13/2012 Closed fracture of metatarsal bone(s) 09/28/2005 06/13/2012 documented as of this encounter (statuses as of 12/14/2022) [facility] History of Past illness Narrative* Problem Noted Date Resolved Date Trapezius strain 02/16/2017 12/15/2021 Muscle strain of scapular region 02/16/2017 12/15/2021 Anxiety 12/19/2016 12/15/2021 Moderate episode of recurrent major depressive d isorder 12/19/2016 03/23/2022 UTI in 09/12/2012 12/15/2021 Overview: 09/12: macrobid given Supervision of high-risk 06/13/2012 12/15/2021 Overview: 06/13/12 - RA done - v23 - KK History of hypertension 05/19/2012 03/23/20 Overview: 06/06/12 - BP normal at 7 weeks - KK 05/19/2012Patient states she was diagnosed with hypertension 5 years ago. She states she has been treated by Dr. Dudley in the past. She has been off medication for the past 4 years. Advanced maternal age in 05/19/2012 12/15/2021 Overview: 05/19/2012 She is 36 years old. Advanced maternal age discussed. [facility] handouts on Genetic Amniocentesis, CV[facility], Quad marker screen and early screening in given and discussed. Level II ultrasound and 's services discussed. Patient requested diagnostic testing 05/19/2012 12/15/2021 Overview: 07/21/2012negative Sequential screen first trimester. The first part of the Sequential Screen reports that her risk for Down syndrome decreased from her age-related risk of 1:170 to 1:4,800 and her Trisomy 18 risk decreased from her age-related risk of 1:590 to 1:10,000. Based on these results Dr. Mei's recommendation is for patient to follow-up with Sequential second trimester screening (08/05-08/19) and level II anatomy scan after 18wks. 06/06/12 - NT ordered - 05/19/2012 Patient desires early screening in with sequential testing. Obesity, unspecified 05/19/2012 03/23/2022 Overview: 05/19/2012Patient is obese. One-hour GCT drawn today. History of depression 05/19/2012 03/23/2022 Overview: 06/06/12 - doing well off meds - 05/19/2012 Pt has a history of depression diagnosed 5 years ago. She has been off medication for 2-3 weeks . She has been treated by Dr. Dudley and Carmen Corey in the past. Discussed increased risks of depression during and and importance of reporting the development or worsening of symptoms should they occur. Pt denies ever having any suicidal thoughts or tendencies or thoughts of hurting others. Quit smoking 05/19/2012 12/15/2021 Overview: 06/06/12 - encouraged continued cessation - 05/19/2012 Pt recently quit smoking April 28, 2012. Discussed risks of smoking during and advised pt to continue not smoking. History of kidney stones 05/19/2012 022 Overview: 05/19/2012 Patient has a history of right hydronephrosis and kidney stones in 2001. Thyroid nodule 02/18/2012 03/23/2022 Panic 02/12/2012 03/23/2022 Marital conflict 02/12/2012 03/23/2022 Contusion of unspecified site 12/10/2011 Capsulitis 07/13/2010 06/13/2012 Seasonal allergies 11/22/2009 03/23/2022 Syncope and collapse 11/22/2009 07/03/2016 Tibialis tendinitis 11/14/2009 06/13/2012 Nontraumatic rupture of other tendons of foot an d ankle 04/11/2009 06/13/2012 Pain in limb 04/05/2009 02/11/2012 Sprain of foot, unspecified site 12/21/2008 02/11/2012 Congenital pes planus 12/21/2008 06/13/2012 Calcaneal spur 12/21/2008 06/13/2012 Achilles bursitis or tendinitis 03/18/2008 06/13/2012 Equinus deformity of foot, acquired 03/18/2008 06/13/2012 PLANTAR fasciitis 05/20/2007 06/13/2012 Closed fracture of metatarsal bone(s) 09/28/2005 06/13/2012 documented as of this encounter (statuses as of 01/25/2023) [facility] History of Past illness Narrative* Problem Noted Date Resolved Date Trapezius strain 02/16/2017 12/15/2021 Muscle strain of scapular region 02/16/2017 12/15/2021 Anxiety 12/19/2016 12/15/2021 Moderate episode of recurrent major depressive d isorder 12/19/2016 03/23/2022 UTI in 09/12/2012 12/15/2021 Overview: 09/12: macrobid given Supervision of high-risk 06/13/2012 12/15/2021 Overview: 06/13/12 - RA done - v23 - KK History of hypertension 05/19/2012 03/23/20 Overview: 06/06/12 - BP normal at 7 weeks - KK 05/19/2012Patient states she was diagnosed with hypertension 5 years ago. She states she has been treated by Dr. Dudley in the past. She has been off medication for the past 4 years. Advanced maternal age in 05/19/2012 12/15/2021 Overview: 05/19/2012 She is 36 years old. Advanced maternal age discussed. [facility] handouts on Genetic Amniocentesis, CV[facility], Quad marker screen and early screening in given and discussed. Level II ultrasound and 's services discussed. Patient requested diagnostic testing 05/19/2012 12/15/2021 Overview: 07/21/2012negative Sequential screen first trimester. The first part of the Sequential Screen reports that her risk for Down syndrome decreased from her age-related risk of 1:170 to 1:4,800 and her Trisomy 18 risk decreased from her age-related risk of 1:590 to 1:10,000. Based on these results Dr. Mei's recommendation is for patient to follow-up with Sequential second trimester screening (08/05-08/19) and level II anatomy scan after 18wks. 06/06/12 - NT ordered - 05/19/2012 Patient desires early screening in with sequential testing. Obesity, unspecified 05/19/2012 03/23/2022 Overview: 05/19/2012Patient is obese. One-hour GCT drawn today. History of depression 05/19/2012 03/23/2022 Overview: 06/06/12 - doing well off meds - 05/19/2012 Pt has a history of depression diagnosed 5 years ago. She has been off medication for 2-3 weeks . She has been treated by Dr. Dudley and Carmen Corey in the past. Discussed increased risks of depression during and and importance of reporting the development or worsening of symptoms should they occur. Pt denies ever having any suicidal thoughts or tendencies or thoughts of hurting others. Quit smoking 05/19/2012 12/15/2021 Overview: 06/06/12 - encouraged continued cessation - 05/19/2012 Pt recently quit smoking April 28, 2012. Discussed risks of smoking during and advised pt to continue not smoking. History of kidney stones 05/19/2012 022 Overview: 05/19/2012 Patient has a history of right hydronephrosis and kidney stones in 2001. Thyroid nodule 02/18/2012 03/23/2022 Panic 02/12/2012 03/23/2022 Marital conflict 02/12/2012 03/23/2022 Contusion of unspecified site 12/10/2011 Capsulitis 07/13/2010 06/13/2012 Seasonal allergies 11/22/2009 03/23/2022 Syncope and collapse 11/22/2009 07/03/2016 Tibialis tendinitis 11/14/2009 06/13/2012 Nontraumatic rupture of other tendons of foot an d ankle 04/11/2009 06/13/2012 Pain in limb 04/05/2009 02/11/2012 Sprain of foot, unspecified site 12/21/2008 02/11/2012 Congenital pes planus 12/21/2008 06/13/2012 Calcaneal spur 12/21/2008 06/13/2012 Achilles bursitis or tendinitis 03/18/2008 06/13/2012 Equinus deformity of foot, acquired 03/18/2008 06/13/2012 PLANTAR fasciitis 05/20/2007 06/13/2012 Closed fracture of metatarsal bone(s) 09/28/2005 06/13/2012 documented as of this encounter (statuses as of 02/01/2023) [facility] History of Past illness Narrative* Problem Noted Date Resolved Date Trapezius strain 02/16/2017 12/15/2021 Muscle strain of scapular region 02/16/2017 12/15/2021 Anxiety 12/19/2016 12/15/2021 Moderate episode of recurrent major depressive d isorder 12/19/2016 03/23/2022 UTI in 09/12/2012 12/15/2021 Overview: 09/12: macrobid given Supervision of high-risk 06/13/2012 12/15/2021 Overview: 06/13/12 - RA done - v23 - KK History of hypertension 05/19/2012 03/23/20 Overview: 06/06/12 - BP normal at 7 weeks - 05/19/2012Patient states she was diagnosed with hypertension 5 years ago. She states she has been treated by Dr. Dudley in the past. She has been off medication for the past 4 years. Advanced maternal age in 05/19/2012 12/15/2021 Overview: 05/19/2012 She is 36 years old. Advanced maternal age discussed. [facility] handouts on Genetic Amniocentesis, CVS, Quad marker screen and early screening in given and discussed. Level II ultrasound and 's services discussed. Patient requested diagnostic testing 05/19/2012 12/15/2021 Overview: 07/21/2012negative Sequential screen first trimester. The first part of the Sequential Screen reports that her risk for Down syndrome decreased from her age-related risk of 1:170 to 1:4,800 and her Trisomy 18 risk decreased from her age-related risk of 1:590 to 1:10,000. Based on these results Dr. eMi's recommendation is for patient to follow-up with Sequential second trimester screening (08/05-08/19) and level II anatomy scan after 18wks. 06/06/12 - NT ordered - 05/19/2012 Patient desires early screening in with sequential testing. Obesity, unspecified 05/19/2012 03/23/2022 Overview: 05/19/2012Patient is obese. One-hour GCT drawn today. History of depression 05/19/2012 03/23/2022 Overview: 06/06/12 - doing well off meds - 05/19/2012 Pt has a history of depression diagnosed 5 years ago. She has been off medication for 2-3 weeks . She has been treated by Dr. Dudley and Carmen Corey in the past. Discussed increased risks of depression during and and importance of reporting the development or worsening of symptoms should they occur. Pt denies ever having any suicidal thoughts or tendencies or thoughts of hurting others. Quit smoking 05/19/2012 12/15/2021 Overview: 06/06/12 - encouraged continued cessation - KK 05/19/2012 Pt recently quit smoking April 28, 2012. Discussed risks of smoking during and advised pt to continue not smoking. History of kidney stones 05/19/2012 022 Overview: 05/19/2012 Patient has a history of right hydronephrosis and kidney stones in 2001. Thyroid nodule 02/18/2012 03/23/2022 Panic 02/12/2012 03/23/2022 Marital conflict 02/12/2012 03/23/2022 Contusion of unspecified site 12/10/2011 Capsulitis 07/13/2010 06/13/2012 Seasonal allergies 11/22/2009 03/23/2022 Syncope and collapse 11/22/2009 07/03/2016 Tibialis tendinitis 11/14/2009 06/13/2012 Nontraumatic rupture of other tendons of foot an d ankle 04/11/2009 06/13/2012 Pain in limb 04/05/2009 02/11/2012 Sprain of foot, unspecified site 12/21/2008 02/11/2012 Congenital pes planus 12/21/2008 06/13/2012 Calcaneal spur 12/21/2008 06/13/2012 Achilles bursitis or tendinitis 03/18/2008 06/13/2012 Equinus deformity of foot, acquired 03/18/2008 06/13/2012 PLANTAR fasciitis 05/20/2007 06/13/2012 Closed fracture of metatarsal bone(s) 09/28/2005 06/13/2012 documented as of this encounter (statuses as of 02/01/2023) [facility] History of Past illness Narrative* Problem Noted Date Resolved Date Trapezius strain 02/16/2017 12/15/2021 Muscle strain of scapular region 02/16/2017 12/15/2021 Anxiety 12/19/2016 12/15/2021 Moderate episode of recurrent major depressive d isorder 12/19/2016 03/23/2022 UTI in 09/12/2012 12/15/2021 Overview: 09/12: macrobid given Supervision of high-risk 06/13/2012 12/15/2021 Overview: 06/13/12 - RA done - v23 - KK History of hypertension 05/19/2012 03/23/20 Overview: 06/06/12 - BP normal at 7 weeks - KK 05/19/2012Patient states she was diagnosed with hypertension 5 years ago. She states she has been treated by Dr. Dudley in the past. She has been off medication for the past 4 years. Advanced maternal age in 05/19/2012 12/15/2021 Overview: 05/19/2012 She is 36 years old. Advanced maternal age discussed. [facility] handouts on Genetic Amniocentesis, CVS, Quad marker screen and early screening in given and discussed. Level II ultrasound and 's services discussed. Patient requested diagnostic testing 05/19/2012 12/15/2021 Overview: 07/21/2012negative Sequential screen first trimester. The first part of the Sequential Screen reports that her risk for Down syndrome decreased from her age-related risk of 1:170 to 1:4,800 and her Trisomy 18 risk decreased from her age-related risk of 1:590 to 1:10,000. Based on these results Dr. Mei's recommendation is for patient to follow-up with Sequential second trimester screening (08/05-08/19) and level II anatomy scan after 18wks. 06/06/12 - NT ordered - KK 05/19/2012 Patient desires early screening in with sequential testing. Obesity, unspecified 05/19/2012 03/23/2022 Overview: 05/19/2012Patient is obese. One-hour GCT drawn today. History of depression 05/19/2012 03/23/2022 Overview: 06/06/12 - doing well off meds - KK 05/19/2012 Pt has a history of depression diagnosed 5 years ago. She has been off medication for 2-3 weeks . She has been treated by Dr. Dudley and Carmen Corey in the past. Discussed increased risks of depression during and and importance of reporting the development or worsening of symptoms should they occur. Pt denies ever having any suicidal thoughts or tendencies or thoughts of hurting others. Quit smoking 05/19/2012 12/15/2021 Overview: 06/06/12 - encouraged continued cessation - KK 05/19/2012 Pt recently quit smoking April 28, 2012. Discussed risks of smoking during and advised pt to continue not smoking. History of kidney stones 05/19/2012 022 Overview: 05/19/2012 Patient has a history of right hydronephrosis and kidney stones in 2001. Thyroid nodule 02/18/2012 03/23/2022 Panic 02/12/2012 03/23/2022 Marital conflict 02/12/2012 03/23/2022 Contusion of unspecified site 12/10/2011 Capsulitis 07/13/2010 06/13/2012 Seasonal allergies 11/22/2009 03/23/2022 Syncope and collapse 11/22/2009 07/03/2016 Tibialis tendinitis 11/14/2009 06/13/2012 Nontraumatic rupture of other tendons of foot an d ankle 04/11/2009 06/13/2012 Pain in limb 04/05/2009 02/11/2012 Sprain of foot, unspecified site 12/21/2008 02/11/2012 Congenital pes planus 12/21/2008 06/13/2012 Calcaneal spur 12/21/2008 06/13/2012 Achilles bursitis or tendinitis 03/18/2008 06/13/2012 Equinus deformity of foot, acquired 03/18/2008 06/13/2012 PLANTAR fasciitis 05/20/2007 06/13/2012 Closed fracture of metatarsal bone(s) 09/28/2005 06/13/2012 documented as of this encounter (statuses as of 02/08/2023) [facility] History of Past illness Narrative* Problem Noted Date Resolved Date Trapezius strain 02/16/2017 12/15/2021 Muscle strain of scapular region 02/16/2017 12/15/2021 Anxiety 12/19/2016 12/15/2021 Moderate episode of recurrent major depressive d isorder 12/19/2016 03/23/2022 UTI in 09/12/2012 12/15/2021 Overview: 09/12: macrobid given Supervision of high-risk 06/13/2012 12/15/2021 Overview: 06/13/12 - RA done - v23 - KK History of hypertension 05/19/2012 03/23/20 Overview: 06/06/12 - BP normal at 7 weeks - KK 05/19/2012Patient states she was diagnosed with hypertension 5 years ago. She states she has been treated by Dr. Dudley in the past. She has been off medication for the past 4 years. Advanced maternal age in 05/19/2012 12/15/2021 Overview: 05/19/2012 She is 36 years old. Advanced maternal age discussed. [facility] handouts on Genetic Amniocentesis, [facility], Quad marker screen and early screening in given and discussed. Level II ultrasound and 's services discussed. Patient requested diagnostic testing 05/19/2012 12/15/2021 Overview: 07/21/2012negative Sequential screen first trimester. The first part of the Sequential Screen reports that her risk for Down syndrome decreased from her age-related risk of 1:170 to 1:4,800 and her Trisomy 18 risk decreased from her age-related risk of 1:590 to 1:10,000. Based on these results Dr. Mei's recommendation is for patient to follow-up with Sequential second trimester screening (08/05-08/19) and level II anatomy scan after 18wks. 06/06/12 - NT ordered - KK 05/19/2012 Patient desires early screening in with sequential testing. Obesity, unspecified 05/19/2012 03/23/2022 Overview: 05/19/2012Patient is obese. One-hour GCT drawn today. History of depression 05/19/2012 03/23/2022 Overview: 06/06/12 - doing well off meds - KK 05/19/2012 Pt has a history of depression diagnosed 5 years ago. She has been off medication for 2-3 weeks . She has been treated by Dr. Dudley and Carmen Corey in the past. Discussed increased risks of depression during and and importance of reporting the development or worsening of symptoms should they occur. Pt denies ever having any suicidal thoughts or tendencies or thoughts of hurting others. Quit smoking 05/19/2012 12/15/2021 Overview: 06/06/12 - encouraged continued cessation - KK 05/19/2012 Pt recently quit smoking April 28, 2012. Discussed risks of smoking during and advised pt to continue not smoking. History of kidney stones 05/19/2012 022 Overview: 05/19/2012 Patient has a history of right hydronephrosis and kidney stones in 2001. Thyroid nodule 02/18/2012 03/23/2022 Panic 02/12/2012 03/23/2022 Marital conflict 02/12/2012 03/23/2022 Contusion of unspecified site 12/10/2011 Capsulitis 07/13/2010 06/13/2012 Seasonal allergies 11/22/2009 03/23/2022 Syncope and collapse 11/22/2009 07/03/2016 Tibialis tendinitis 11/14/2009 06/13/2012 Nontraumatic rupture of other tendons of foot an d ankle 04/11/2009 06/13/2012 Pain in limb 04/05/2009 02/11/2012 Sprain of foot, unspecified site 12/21/2008 02/11/2012 Congenital pes planus 12/21/2008 06/13/2012 Calcaneal spur 12/21/2008 06/13/2012 Achilles bursitis or tendinitis 03/18/2008 06/13/2012 Equinus deformity of foot, acquired 03/18/2008 06/13/2012 PLANTAR fasciitis 05/20/2007 06/13/2012 Closed fracture of metatarsal bone(s) 09/28/2005 06/13/2012 documented as of this encounter (statuses as of 03/04/2023) [facility] History of Past illness Narrative* Problem Noted Date Resolved Date Trapezius strain 02/16/2017 12/15/2021 Muscle strain of scapular region 02/16/2017 12/15/2021 Anxiety 12/19/2016 12/15/2021 Moderate episode of recurrent major depressive d isorder 12/19/2016 03/23/2022 UTI in 09/12/2012 12/15/2021 Overview: 09/12: macrobid given Supervision of high-risk 06/13/2012 12/15/2021 Overview: 06/13/12 - RA done - v23 - KK History of hypertension 05/19/2012 03/23/20 Overview: 06/06/12 - BP normal at 7 weeks - KK 05/19/2012Patient states she was diagnosed with hypertension 5 years ago. She states she has been treated by Dr. Dudley in the past. She has been off medication for the past 4 years. Advanced maternal age in 05/19/2012 12/15/2021 Overview: 05/19/2012 She is 36 years old. Advanced maternal age discussed. [facility] handouts on Genetic Amniocentesis, [facility], Quad marker screen and early screening in given and discussed. Level II ultrasound and 's services discussed. Patient requested diagnostic testing 05/19/2012 12/15/2021 Overview: 07/21/2012negative Sequential screen first trimester. The first part of the Sequential Screen reports that her risk for Down syndrome decreased from her age-related risk of 1:170 to 1:4,800 and her Trisomy 18 risk decreased from her age-related risk of 1:590 to 1:10,000. Based on these results Dr. Mei's recommendation is for patient to follow-up with Sequential second trimester screening (08/05-08/19) and level II anatomy scan after 18wks. 06/06/12 - NT ordered - KK 05/19/2012 Patient desires early screening in with sequential testing. Obesity, unspecified 05/19/2012 03/23/2022 Overview: 05/19/2012Patient is obese. One-hour GCT drawn today. History of depression 05/19/2012 03/23/2022 Overview: 06/06/12 - doing well off meds - KK 05/19/2012 Pt has a history of depression diagnosed 5 years ago. She has been off medication for 2-3 weeks . She has been treated by Dr. Dudley and Carmen Corey in the past. Discussed increased risks of depression during and and importance of reporting the development or worsening of symptoms should they occur. Pt denies ever having any suicidal thoughts or tendencies or thoughts of hurting others. Quit smoking 05/19/2012 12/15/2021 Overview: 06/06/12 - encouraged continued cessation - KK 05/19/2012 Pt recently quit smoking April 28, 2012. Discussed risks of smoking during and advised pt to continue not smoking. History of kidney stones 05/19/2012 022 Overview: 05/19/2012 Patient has a history of right hydronephrosis and kidney stones in 2001. Thyroid nodule 02/18/2012 03/23/2022 Panic 02/12/2012 03/23/2022 Marital conflict 02/12/2012 03/23/2022 Contusion of unspecified site 12/10/2011 Capsulitis 07/13/2010 06/13/2012 Seasonal allergies 11/22/2009 03/23/2022 Syncope and collapse 11/22/2009 07/03/2016 Tibialis tendinitis 11/14/2009 06/13/2012 Nontraumatic rupture of other tendons of foot an d ankle 04/11/2009 06/13/2012 Pain in limb 04/05/2009 02/11/2012 Sprain of foot, unspecified site 12/21/2008 02/11/2012 Congenital pes planus 12/21/2008 06/13/2012 Calcaneal spur 12/21/2008 06/13/2012 Achilles bursitis or tendinitis 03/18/2008 06/13/2012 Equinus deformity of foot, acquired 03/18/2008 06/13/2012 PLANTAR fasciitis 05/20/2007 06/13/2012 Closed fracture of metatarsal bone(s) 09/28/2005 06/13/2012 documented as of this encounter (statuses as of 03/06/2023) [facility] History of Past illness Narrative* Problem Noted Date Diagnosed Date Resolved Date Trapezius strain 02/16/2017 12/15/2021 Muscle strain of scapular region 02/16/2017 12/15/2021 Anxiety 12/19/2016 12/15/2021 Moderate episode of recurren t major depressive disorder 12/19/2016 03/23/2022 UTI in 09/12/2012 12/15/2021 Overview: 09/12: macrobid given Supervision of high-risk 06/13/2012 12/15/2021 Overview: 06/13/12 - RA done - v23 - KK History of hypertension 05/19/201203/01 Overview: 06/06/12 - BP normal at 7 weeks - KK 05/19/2012Patient states she was diagnosed with hypertension 5 years ago. She states she has been treated by Dr. Dudley in the past. She has been off medication for the past 4 years. Advanced maternal age in 05/19/2012 12/15/2021 Overview: 05/19/2012 She is 36 years old. Advanced maternal age discussed. [facility] handouts on Genetic Amniocentesis, [facility], Quad marker screen and early screening in given and discussed. Level II ultrasound and 's services discussed. Patient requested diagnostic testing 05/19/2012 12/15/2021 Overview: 07/21/2012negative Sequential screen first trimester. The first part of the Sequential Screen reports that her risk for Down syndrome decreased from her age-related risk of 1:170 to 1:4,800 and her Trisomy 18 risk decreased from her age-related risk of 1:590 to 1:10,000. Based on these results Dr. Mei's recommendation is for patient to follow-up with Sequential second trimester screening (08/05-08/19) and level II anatomy scan after 18wks. 06/06/12 - NT ordered - KK 05/19/2012 Patient desires early screening in with sequential testing. Obesity, unspecified 05/19/2012 022 Overview: 05/19/2012Patient is obese. One-hour GCT drawn today. History of depression 05/19/20122021 Overview: 06/06/12 - doing well off meds - KK 05/19/2012 Pt has a history of depression diagnosed 5 years ago. She has been off medication for 2-3 weeks . She has been treated by Dr. Dudley and Carmen Corey in the past. Discussed increased risks of depression during and and importance of reporting the development or worsening of symptoms should they occur. Pt denies ever having any suicidal thoughts or tendencies or thoughts of hurting others. Quit smoking 05/19/2012 12/15/2021 Overview: 06/06/12 - encouraged continued cessation - 05/19/2012 Pt recently quit smoking April 28, 2012. Discussed risks of smoking during and advised pt to continue not smoking. History of kidney stones 05/19/2012 Overview: 05/19/2012 Patient has a history of right hydronephrosis and kidney stones in 2001. Thyroid nodule 02/18/2012 03/23/2022 Panic 02/12/2012 03/23/2022 Marital conflict 02/12/2012 03/23/2022 Contusion of unspecified site 12/10/2011 06/13/2012 Capsulitis 07/13/2010 06/13/2012 Seasonal allergies 11/22/2009 2 Syncope and collapse 11/22/2009 016 Tibialis tendinitis 11/14/2009 06/13/20 12 Nontraumatic rupture of othe r tendons of foot and ankle 04/11/2009 06/13/2012 Pain in limb 04/05/2009 02/11/2012 Sprain of foot, unspecified site 12/21/2008 02/11/2012 Congenital pes planus 12/21/20082011 Calcaneal spur 12/21/2008 06/13/2012 Achilles bursitis or tendinitis 03/18/2008 06/13/2012 Equinus deformity of foot, acquired 03/18/2008 06/13/2012 PLANTAR fasciitis 05/20/2007 06/13/2012 Closed fracture of metatarsal bone(s) 09/28/2005 06/13/2012 documented as of this encounter (statuses as of 05/16/2023) [facility] History of Past illness Narrative* Problem Noted Date Diagnosed Date Resolved Date Trapezius strain 02/16/2017 12/15/2021 Muscle strain of scapular region 02/16/2017 12/15/2021 Anxiety 12/19/2016 12/15/2021 Moderate episode of recurren t major depressive disorder 12/19/2016 03/23/2022 UTI in 09/12/2012 12/15/2021 Overview: 09/12: macrobid given Supervision of high-risk 06/13/2012 12/15/2021 Overview: 06/13/12 - RA done - v23 - KK History of hypertension 05/19/201203/01 Overview: 06/06/12 - BP normal at 7 weeks - KK 05/19/2012Patient states she was diagnosed with hypertension 5 years ago. She states she has been treated by Dr. Dudley in the past. She has been off medication for the past 4 years. Advanced maternal age in 05/19/2012 12/15/2021 Overview: 05/19/2012 She is 36 years old. Advanced maternal age discussed. [facility] handouts on Genetic Amniocentesis, [facility], Quad marker screen and early screening in given and discussed. Level II ultrasound and 's services discussed. Patient requested diagnostic testing 05/19/2012 12/15/2021 Overview: 07/21/2012negative Sequential screen first trimester. The first part of the Sequential Screen reports that her risk for Down syndrome decreased from her age-related risk of 1:170 to 1:4,800 and her Trisomy 18 risk decreased from her age-related risk of 1:590 to 1:10,000. Based on these results Dr. Mei's recommendation is for patient to follow-up with Sequential second trimester screening (08/05-08/19) and level II anatomy scan after 18wks. 06/06/12 - NT ordered - 05/19/2012 Patient desires early screening in with sequential testing. Obesity, unspecified 05/19/2012 022 Overview: 05/19/2012Patient is obese. One-hour GCT drawn today. History of depression 05/19/20122021 Overview: 06/06/12 - doing well off meds - 05/19/2012 Pt has a history of depression diagnosed 5 years ago. She has been off medication for 2-3 weeks . She has been treated by Dr. Dudley and Carmen Corey in the past. Discussed increased risks of depression during and and importance of reporting the development or worsening of symptoms should they occur. Pt denies ever having any suicidal thoughts or tendencies or thoughts of hurting others. Quit smoking 05/19/2012 12/15/2021 Overview: 06/06/12 - encouraged continued cessation - 05/19/2012 Pt recently quit smoking April 28, 2012. Discussed risks of smoking during and advised pt to continue not smoking. History of kidney stones 05/19/2012 Overview: 05/19/2012 Patient has a history of right hydronephrosis and kidney stones in 2001. Thyroid nodule 02/18/2012 03/23/2022 Panic 02/12/2012 03/23/2022 Marital conflict 02/12/2012 03/23/2022 Contusion of unspecified site 12/10/2011 06/13/2012 Capsulitis 07/13/2010 06/13/2012 Seasonal allergies 11/22/2009 2 Syncope and collapse 11/22/2009 016 Tibialis tendinitis 11/14/2009 06/13/20 12 Nontraumatic rupture of othe r tendons of foot and ankle 04/11/2009 06/13/2012 Pain in limb 04/05/2009 02/11/2012 Sprain of foot, unspecified site 12/21/2008 02/11/2012 Congenital pes planus 12/21/20082011 Calcaneal spur 12/21/2008 06/13/2012 Achilles bursitis or tendinitis 03/18/2008 06/13/2012 Equinus deformity of foot, acquired 03/18/2008 06/13/2012 PLANTAR fasciitis 05/20/2007 06/13/2012 Closed fracture of metatarsal bone(s) 09/28/2005 06/13/2012 documented as of this encounter (statuses as of 06/12/2023) [facility] History of Past illness Narrative* Problem Noted Date Diagnosed Date Resolved Date Trapezius strain 02/16/2017 12/15/2021 Muscle strain of scapular region 02/16/2017 12/15/2021 Anxiety 12/19/2016 12/15/2021 Moderate episode of recurren t major depressive disorder 12/19/2016 03/23/2022 UTI in 09/12/2012 12/15/2021 Overview: 09/12: macrobid given Supervision of high-risk 06/13/2012 12/15/2021 Overview: 06/13/12 - RA done - v23 - KK History of hypertension 05/19/201203/01 Overview: 06/06/12 - BP normal at 7 weeks - KK 05/19/2012Patient states she was diagnosed with hypertension 5 years ago. She states she has been treated by Dr. Dudley in the past. She has been off medication for the past 4 years. Advanced maternal age in 05/19/2012 12/15/2021 Overview: 05/19/2012 She is 36 years old. Advanced maternal age discussed. [facility] handouts on Genetic Amniocentesis, [facility], Quad marker screen and early screening in given and discussed. Level II ultrasound and 's services discussed. Patient requested diagnostic testing 05/19/2012 12/15/2021 Overview: 10/22/2012negative Sequential screen first trimester. The first part of the Sequential Screen reports that her risk for Down syndrome decreased from her age-related risk of 1:170 to 1:4,800 and her Trisomy 18 risk decreased from her age-related risk of 1:590 to 1:10,000. Based on these results Dr. Mei's recommendation is for patient to follow-up with Sequential second trimester screening (08/05-08/19) and level II anatomy scan after 18wks. 06/06/12 - NT ordered - KK 05/19/2012 Patient desires early screening in with sequential testing. Obesity, unspecified 05/19/2012 022 Overview: 05/19/2012Patient is obese. One-hour GCT drawn today. History of depression 05/19/20122021 Overview: 06/06/12 - doing well off meds - KK 05/19/2012 Pt has a history of depression diagnosed 5 years ago. She has been off medication for 2-3 weeks . She has been treated by Dr. Dudley and Carmen Corey in the past. Discussed increased risks of depression during and and importance of reporting the development or worsening of symptoms should they occur. Pt denies ever having any suicidal thoughts or tendencies or thoughts of hurting others. Quit smoking 05/19/2012 12/15/2021 Overview: 06/06/12 - encouraged continued cessation - 05/19/2012 Pt recently quit smoking April 28, 2012. Discussed risks of smoking during and advised pt to continue not smoking. History of kidney stones 05/19/2012 Overview: 05/19/2012 Patient has a history of right hydronephrosis and kidney stones in 2001. Thyroid nodule 02/18/2012 03/23/2022 Panic 02/12/2012 03/23/2022 Marital conflict 02/12/2012 03/23/2022 Contusion of unspecified site 12/10/2011 06/13/2012 Capsulitis 07/13/2010 06/13/2012 Seasonal allergies 11/22/2009 Syncope and collapse 11/22/2009 016 Tibialis tendinitis 11/14/2009 06/13/20 12 Nontraumatic rupture of othe r tendons of foot and ankle 04/11/2009 06/13/2012 Pain in limb 04/05/2009 02/11/2012 Sprain of foot, unspecified site 12/21/2008 02/11/2012 Congenital pes planus 12/21/20082011 Calcaneal spur 12/21/2008 06/13/2012 Achilles bursitis or tendinitis 03/18/2008 06/13/2012 Equinus deformity of foot, acquired 03/18/2008 06/13/2012 PLANTAR fasciitis 05/20/2007 06/13/2012 Closed fracture of metatarsal bone(s) 09/28/2005 06/13/2012 documented as of this encounter (statuses as of 07/04/2023) [facility] History of Past illness Narrative* Problem Noted Date Diagnosed Date Resolved Date Trapezius strain 02/16/2017 12/15/2021 Muscle strain of scapular region 02/16/2017 12/15/2021 Anxiety 12/19/2016 12/15/2021 Moderate episode of recurren t major depressive disorder 12/19/2016 03/23/2022 UTI in 09/12/2012 12/15/2021 Overview: 09/12: macrobid given Supervision of high-risk 06/13/2012 12/15/2021 Overview: 06/13/12 - RA done - v23 - KK History of hypertension 05/19/201203/01 Overview: 06/06/12 - BP normal at 7 weeks - KK 05/19/2012Patient states she was diagnosed with hypertension 5 years ago. She states she has been treated by Dr. Dudley in the past. She has been off medication for the past 4 years. Advanced maternal age in 05/19/2012 12/15/2021 Overview: 05/19/2012 She is 36 years old. Advanced maternal age discussed. [facility] handouts on Genetic Amniocentesis, [facility], Quad marker screen and early screening in given and discussed. Level II ultrasound and 's services discussed. Patient requested diagnostic testing 05/19/2012 12/15/2021 Overview: 07/21/2012negative Sequential screen first trimester. The first part of the Sequential Screen reports that her risk for Down syndrome decreased from her age-related risk of 1:170 to 1:4,800 and her Trisomy 18 risk decreased from her age-related risk of 1:590 to 1:10,000. Based on these results Dr. Mei's recommendation is for patient to follow-up with Sequential second trimester screening (08/05-08/19) and level II anatomy scan after 18wks. 06/06/12 - NT ordered - 05/19/2012 Patient desires early screening in with sequential testing. Obesity, unspecified 05/19/2012 022 Overview: 05/19/2012Patient is obese. One-hour GCT drawn today. History of depression 05/19/20122021 Overview: 06/06/12 - doing well off meds - 05/19/2012 Pt has a history of depression diagnosed 5 years ago. She has been off medication for 2-3 weeks . She has been treated by Dr. Dudley and Carmen Corey in the past. Discussed increased risks of depression during and and importance of reporting the development or worsening of symptoms should they occur. Pt denies ever having any suicidal thoughts or tendencies or thoughts of hurting others. Quit smoking 05/19/2012 12/15/2021 Overview: 06/06/12 - encouraged continued cessation - 05/19/2012 Pt recently quit smoking April 28, 2012. Discussed risks of smoking during and advised pt to continue not smoking. History of kidney stones 05/19/2012 Overview: 05/19/2012 Patient has a history of right hydronephrosis and kidney stones in 2001. Thyroid nodule 02/18/2012 03/23/2022 Panic 02/12/2012 03/23/2022 Marital conflict 02/12/2012 03/23/2022 Contusion of unspecified site 12/10/2011 06/13/2012 Capsulitis 07/13/2010 06/13/2012 Seasonal allergies 11/22/2009 Syncope and collapse 11/22/2009 016 Tibialis tendinitis 11/14/2009 06/13/20 12 Nontraumatic rupture of othe r tendons of foot and ankle 04/11/2009 06/13/2012 Pain in limb 04/05/2009 02/11/2012 Sprain of foot, unspecified site 12/21/2008 02/11/2012 Congenital pes planus 12/21/20082011 Calcaneal spur 12/21/2008 06/13/2012 Achilles bursitis or tendinitis 03/18/2008 06/13/2012 Equinus deformity of foot, acquired 03/18/2008 06/13/2012 PLANTAR fasciitis 05/20/2007 06/13/2012 Closed fracture of metatarsal bone(s) 09/28/2005 06/13/2012 documented as of this encounter (statuses as of 08/04/2023) [facility] History of Past illness Narrative* Problem Noted Date Diagnosed Date Resolved Date Trapezius strain 02/16/2017 12/15/2021 Muscle strain of scapular region 02/16/2017 12/15/2021 Anxiety 12/19/2016 12/15/2021 Moderate episode of recurren t major depressive disorder 12/19/2016 03/23/2022 UTI in 09/12/2012 12/15/2021 Overview: 09/12: macrobid given Supervision of high-risk 06/13/2012 12/15/2021 Overview: 06/13/12 - RA done - v23 - KK History of hypertension 05/19/201203/01 Overview: 06/06/12 - BP normal at 7 weeks - KK 05/19/2012Patient states she was diagnosed with hypertension 5 years ago. She states she has been treated by Dr. Dudley in the past. She has been off medication for the past 4 years. Advanced maternal age in 05/19/2012 12/15/2021 Overview: 05/19/2012 She is 36 years old. Advanced maternal age discussed. [facility] handouts on Genetic Amniocentesis, CVS, Quad marker screen and early screening in given and discussed. Level II ultrasound and 's services discussed. Patient requested diagnostic testing 05/19/2012 12/15/2021 Overview: 07/21/2012negative Sequential screen first trimester. The first part of the Sequential Screen reports that her risk for Down syndrome decreased from her age-related risk of 1:170 to 1:4,800 and her Trisomy 18 risk decreased from her age-related risk of 1:590 to 1:10,000. Based on these results Dr. Mei's recommendation is for patient to follow-up with Sequential second trimester screening (08/05-08/19) and level II anatomy scan after 18wks. 06/06/12 - NT ordered - 05/19/2012 Patient desires early screening in with sequential testing. Obesity, unspecified 05/19/2012 022 Overview: 05/19/2012Patient is obese. One-hour GCT drawn today. History of depression 05/19/20122021 Overview: 06/06/12 - doing well off meds - 05/19/2012 Pt has a history of depression diagnosed 5 years ago. She has been off medication for 2-3 weeks . She has been treated by Dr. Dudley and Carmen Corey in the past. Discussed increased risks of depression during and and importance of reporting the development or worsening of symptoms should they occur. Pt denies ever having any suicidal thoughts or tendencies or thoughts of hurting others. Quit smoking 05/19/2012 12/15/2021 Overview: 06/06/12 - encouraged continued cessation - 05/19/2012 Pt recently quit smoking April 28, 2012. Discussed risks of smoking during and advised pt to continue not smoking. History of kidney stones 05/19/2012 Overview: 05/19/2012 Patient has a history of right hydronephrosis and kidney stones in 2001. Thyroid nodule 02/18/2012 03/23/2022 Panic 02/12/2012 03/23/2022 Marital conflict 02/12/2012 03/23/2022 Contusion of unspecified site 12/10/2011 06/13/2012 Capsulitis 07/13/2010 06/13/2012 Seasonal allergies 11/22/2009 Syncope and collapse 11/22/2009 016 Tibialis tendinitis 11/14/2009 06/13/20 12 Nontraumatic rupture of othe r tendons of foot and ankle 04/11/2009 06/13/2012 Pain in limb 04/05/2009 02/11/2012 Sprain of foot, unspecified site 12/21/2008 02/11/2012 Congenital pes planus 12/21/20082011 Calcaneal spur 12/21/2008 06/13/2012 Achilles bursitis or tendinitis 03/18/2008 06/13/2012 Equinus deformity of foot, acquired 03/18/2008 06/13/2012 PLANTAR fasciitis 05/20/2007 06/13/2012 Closed fracture of metatarsal bone(s) 09/28/2005 06/13/2012 documented as of this encounter (statuses as of 08/04/2023) [facility] History of Past illness Narrative* Problem Noted Date Diagnosed Date Resolved Date Trapezius strain 02/16/2017 12/15/2021 Muscle strain of scapular region 02/16/2017 12/15/2021 Anxiety 12/19/2016 12/15/2021 Moderate episode of recurren t major depressive disorder 12/19/2016 03/23/2022 UTI in 09/12/2012 12/15/2021 Overview: 09/12: macrobid given Supervision of high-risk 06/13/2012 12/15/2021 Overview: 06/13/12 - RA done - v23 - KK History of hypertension 05/19/201203/01 Overview: 06/06/12 - BP normal at 7 weeks - KK 05/19/2012Patient states she was diagnosed with hypertension 5 years ago. She states she has been treated by Dr. Dudley in the past. She has been off medication for the past 4 years. Advanced maternal age in 05/19/2012 12/15/2021 Overview: 05/19/2012 She is 36 years old. Advanced maternal age discussed. [facility] handouts on Genetic Amniocentesis, CVS, Quad marker screen and early screening in given and discussed. Level II ultrasound and 's services discussed. Patient requested diagnostic testing 05/19/2012 12/15/2021 Overview: 07/21/2012negative Sequential screen first trimester. The first part of the Sequential Screen reports that her risk for Down syndrome decreased from her age-related risk of 1:170 to 1:4,800 and her Trisomy 18 risk decreased from her age-related risk of 1:590 to 1:10,000. Based on these results Dr. Mei's recommendation is for patient to follow-up with Sequential second trimester screening (08/05-08/19) and level II anatomy scan after 18wks. 06/06/12 - NT ordered - 05/19/2012 Patient desires early screening in with sequential testing. Obesity, unspecified 05/19/2012 022 Overview: 05/19/2012Patient is obese. One-hour GCT drawn today. History of depression 05/19/20122021 Overview: 06/06/12 - doing well off meds - 05/19/2012 Pt has a history of depression diagnosed 5 years ago. She has been off medication for 2-3 weeks . She has been treated by Dr. Dudley and Carmen Corey in the past. Discussed increased risks of depression during and and importance of reporting the development or worsening of symptoms should they occur. Pt denies ever having any suicidal thoughts or tendencies or thoughts of hurting others. Quit smoking 05/19/2012 12/15/2021 Overview: 06/06/12 - encouraged continued cessation - KK 05/19/2012 Pt recently quit smoking April 28, 2012. Discussed risks of smoking during and advised pt to continue not smoking. History of kidney stones 05/19/2012 Overview: 05/19/2012 Patient has a history of right hydronephrosis and kidney stones in 2001. Thyroid nodule 02/18/2012 03/23/2022 Panic 02/12/2012 03/23/2022 Marital conflict 02/12/2012 03/23/2022 Contusion of unspecified site 12/10/2011 06/13/2012 Capsulitis 07/13/2010 06/13/2012 Seasonal allergies 11/22/2009 Syncope and collapse 11/22/2009 016 Tibialis tendinitis 11/14/2009 06/13/20 12 Nontraumatic rupture of othe r tendons of foot and ankle 04/11/2009 06/13/2012 Pain in limb 04/05/2009 02/11/2012 Sprain of foot, unspecified site 12/21/2008 02/11/2012 Congenital pes planus 12/21/20082011 Calcaneal spur 12/21/2008 06/13/2012 Achilles bursitis or tendinitis 03/18/2008 06/13/2012 Equinus deformity of foot, acquired 03/18/2008 06/13/2012 PLANTAR fasciitis 05/20/2007 06/13/2012 Closed fracture of metatarsal bone(s) 09/28/2005 06/13/2012 documented as of this encounter (statuses as of 08/04/2023) [facility] History of Past illness Narrative* Problem Noted Date Diagnosed Date Resolved Date Trapezius strain 02/16/2017 12/15/2021 Muscle strain of scapular region 02/16/2017 12/15/2021 Anxiety 12/19/2016 12/15/2021 Moderate episode of recurren t major depressive disorder 12/19/2016 03/23/2022 UTI in 09/12/2012 12/15/2021 Overview: 09/12: macrobid given Supervision of high-risk 06/13/2012 12/15/2021 Overview: 06/13/12 - RA done - v23 - KK History of hypertension 05/19/201203/01 Overview: 06/06/12 - BP normal at 7 weeks - KK 05/19/2012Patient states she was diagnosed with hypertension 5 years ago. She states she has been treated by Dr. Dudley in the past. She has been off medication for the past 4 years. Advanced maternal age in 05/19/2012 12/15/2021 Overview: 05/19/2012 She is 36 years old. Advanced maternal age discussed. [facility] handouts on Genetic Amniocentesis, CVS, Quad marker screen and early screening in given and discussed. Level II ultrasound and 's services discussed. Patient requested diagnostic testing 05/19/2012 12/15/2021 Overview: 07/21/2012negative Sequential screen first trimester. The first part of the Sequential Screen reports that her risk for Down syndrome decreased from her age-related risk of 1:170 to 1:4,800 and her Trisomy 18 risk decreased from her age-related risk of 1:590 to 1:10,000. Based on these results Dr. Mei's recommendation is for patient to follow-up with Sequential second trimester screening (08/05-08/19) and level II anatomy scan after 18wks. 06/06/12 - NT ordered - KK 05/19/2012 Patient desires early screening in with sequential testing. Obesity, unspecified 05/19/2012 022 Overview: 05/19/2012Patient is obese. One-hour GCT drawn today. History of depression 05/19/20122021 Overview: 06/06/12 - doing well off meds - KK 05/19/2012 Pt has a history of depression diagnosed 5 years ago. She has been off medication for 2-3 weeks . She has been treated by Dr. Dudley and Carmen Corey in the past. Discussed increased risks of depression during and and importance of reporting the development or worsening of symptoms should they occur. Pt denies ever having any suicidal thoughts or tendencies or thoughts of hurting others. Quit smoking 05/19/2012 12/15/2021 Overview: 06/06/12 - encouraged continued cessation - KK 05/19/2012 Pt recently quit smoking April 28, 2012. Discussed risks of smoking during and advised pt to continue not smoking. History of kidney stones 05/19/2012 Overview: 05/19/2012 Patient has a history of right hydronephrosis and kidney stones in 2001. Thyroid nodule 02/18/2012 03/23/2022 Panic 02/12/2012 03/23/2022 Marital conflict 02/12/2012 03/23/2022 Contusion of unspecified site 12/10/2011 06/13/2012 Capsulitis 07/13/2010 06/13/2012 Seasonal allergies 11/22/2009 2 Syncope and collapse 11/22/2009 016 Tibialis tendinitis 11/14/2009 06/13/20 12 Nontraumatic rupture of othe r tendons of foot and ankle 04/11/2009 06/13/2012 Pain in limb 04/05/2009 02/11/2012 Sprain of foot, unspecified site 12/21/2008 02/11/2012 Congenital pes planus 12/21/20082011 Calcaneal spur 12/21/2008 06/13/2012 Achilles bursitis or tendinitis 03/18/2008 06/13/2012 Equinus deformity of foot, acquired 03/18/2008 06/13/2012 PLANTAR fasciitis 05/20/2007 06/13/2012 Closed fracture of metatarsal bone(s) 09/28/2005 06/13/2012 documented as of this encounter (statuses as of 11/20/2023) [facility] History of Past illness Narrative* Problem Noted Date Diagnosed Date Resolved Date Trapezius strain 02/16/2017 12/15/2021 Muscle strain of scapular region 02/16/2017 12/15/2021 Anxiety 12/19/2016 12/15/2021 Moderate episode of recurren t major depressive disorder 12/19/2016 03/23/2022 UTI in 09/12/2012 12/15/2021 Overview: 09/12: macrobid given Supervision of high-risk 06/13/2012 12/15/2021 Overview: 06/13/12 - RA done - v23 - KK History of hypertension 05/19/201203/01 Overview: 06/06/12 - BP normal at 7 weeks - KK 05/19/2012Patient states she was diagnosed with hypertension 5 years ago. She states she has been treated by Dr. Dudley in the past. She has been off medication for the past 4 years. Advanced maternal age in 05/19/2012 12/15/2021 Overview: 05/19/2012 She is 36 years old. Advanced maternal age discussed. [facility] handouts on Genetic Amniocentesis, CVS, Quad marker screen and early screening in given and discussed. Level II ultrasound and 's services discussed. Patient requested diagnostic testing 05/19/2012 12/15/2021 Overview: 07/21/2012negative Sequential screen first trimester. The first part of the Sequential Screen reports that her risk for Down syndrome decreased from her age-related risk of 1:170 to 1:4,800 and her Trisomy 18 risk decreased from her age-related risk of 1:590 to 1:10,000. Based on these results Dr. Mei's recommendation is for patient to follow-up with Sequential second trimester screening (08/05-08/19) and level II anatomy scan after 18wks. 06/06/12 - NT ordered - KK 05/19/2012 Patient desires early screening in with sequential testing. Obesity, unspecified 05/19/2012 022 Overview: 05/19/2012Patient is obese. One-hour GCT drawn today. History of depression 05/19/20122021 Overview: 06/06/12 - doing well off meds - KK 05/19/2012 Pt has a history of depression diagnosed 5 years ago. She has been off medication for 2-3 weeks . She has been treated by Dr. Dudley and Carmen Corey in the past. Discussed increased risks of depression during and and importance of reporting the development or worsening of symptoms should they occur. Pt denies ever having any suicidal thoughts or tendencies or thoughts of hurting others. Quit smoking 05/19/2012 12/15/2021 Overview: 06/06/12 - encouraged continued cessation - KK 05/19/2012 Pt recently quit smoking April 28, 2012. Discussed risks of smoking during and advised pt to continue not smoking. History of kidney stones 05/19/2012 Overview: 05/19/2012 Patient has a history of right hydronephrosis and kidney stones in 2001. Thyroid nodule 02/18/2012 03/23/2022 Panic 02/12/2012 03/23/2022 Marital conflict 02/12/2012 03/23/2022 Contusion of unspecified site 12/10/2011 06/13/2012 Capsulitis 07/13/2010 06/13/2012 Seasonal allergies 11/22/2009 2 Syncope and collapse 11/22/2009 016 Tibialis tendinitis 11/14/2009 06/13/20 12 Nontraumatic rupture of othe r tendons of foot and ankle 04/11/2009 06/13/2012 Pain in limb 04/05/2009 02/11/2012 Sprain of foot, unspecified site 12/21/2008 02/11/2012 Congenital pes planus 12/21/20082011 Calcaneal spur 12/21/2008 06/13/2012 Achilles bursitis or tendinitis 03/18/2008 06/13/2012 Equinus deformity of foot, acquired 03/18/2008 06/13/2012 PLANTAR fasciitis 05/20/2007 06/13/2012 Closed fracture of metatarsal bone(s) 09/28/2005 06/13/2012 documented as of this encounter (statuses as of 12/03/2023) [facility] History of Past illness Narrative* Problem Noted Date Diagnosed Date Resolved Date Trapezius strain 02/16/2017 12/15/2021 Muscle strain of scapular region 02/16/2017 12/15/2021 Anxiety 12/19/2016 12/15/2021 Moderate episode of recurren t major depressive disorder 12/19/2016 03/23/2022 UTI in 09/12/2012 12/15/2021 Overview: 09/12: macrobid given Supervision of high-risk 06/13/2012 12/15/2021 Overview: 06/13/12 - RA done - v23 - KK History of hypertension 05/19/201203/01 Overview: 06/06/12 - BP normal at 7 weeks - KK 05/19/2012Patient states she was diagnosed with hypertension 5 years ago. She states she has been treated by Dr. Dudley in the past. She has been off medication for the past 4 years. Advanced maternal age in 05/19/2012 12/15/2021 Overview: 05/19/2012 She is 36 years old. Advanced maternal age discussed. [facility] handouts on Genetic Amniocentesis, CVS, Quad marker screen and early screening in given and discussed. Level II ultrasound and 's services discussed. Patient requested diagnostic testing 05/19/2012 12/15/2021 Overview: 07/21/2012negative Sequential screen first trimester. The first part of the Sequential Screen reports that her risk for Down syndrome decreased from her age-related risk of 1:170 to 1:4,800 and her Trisomy 18 risk decreased from her age-related risk of 1:590 to 1:10,000. Based on these results Dr. Mei's recommendation is for patient to follow-up with Sequential second trimester screening (08/05-08/19) and level II anatomy scan after 18wks. 06/06/12 - NT ordered - KK 05/19/2012 Patient desires early screening in with sequential testing. Obesity, unspecified 05/19/2012 022 Overview: 05/19/2012Patient is obese. One-hour GCT drawn today. History of depression 05/19/20122021 Overview: 06/06/12 - doing well off meds - KK 05/19/2012 Pt has a history of depression diagnosed 5 years ago. She has been off medication for 2-3 weeks . She has been treated by Dr. Dudley and Carmen Corey in the past. Discussed increased risks of depression during and and importance of reporting the development or worsening of symptoms should they occur. Pt denies ever having any suicidal thoughts or tendencies or thoughts of hurting others. Quit smoking 05/19/2012 12/15/2021 Overview: 06/06/12 - encouraged continued cessation - KK 05/19/2012 Pt recently quit smoking April 28, 2012. Discussed risks of smoking during and advised pt to continue not smoking. History of kidney stones 05/19/2012 Overview: 05/19/2012 Patient has a history of right hydronephrosis and kidney stones in 2001. Thyroid nodule 02/18/2012 03/23/2022 Panic 02/12/2012 03/23/2022 Marital conflict 02/12/2012 03/23/2022 Contusion of unspecified site 12/10/2011 06/13/2012 Capsulitis 07/13/2010 06/13/2012 Seasonal allergies 11/22/2009 2 Syncope and collapse 11/22/2009 016 Tibialis tendinitis 11/14/2009 06/13/20 12 Nontraumatic rupture of othe r tendons of foot and ankle 04/11/2009 06/13/2012 Pain in limb 04/05/2009 02/11/2012 Sprain of foot, unspecified site 12/21/2008 02/11/2012 Congenital pes planus 12/21/20082011 Calcaneal spur 12/21/2008 06/13/2012 Achilles bursitis or tendinitis 03/18/2008 06/13/2012 Equinus deformity of foot, acquired 03/18/2008 06/13/2012 PLANTAR fasciitis 05/20/2007 06/13/2012 Closed fracture of metatarsal bone(s) 09/28/2005 06/13/2012 documented as of this encounter (statuses as of 12/23/2023) [facility] No data available for this section [facility] Evaluation note* Diagnosis Suspected COVID-19 virus infection- Primary [facility]* Diagnosis Bronchospasm- Primary Acute bronchospasm COVID-19 [facility]* Diagnosis Routine medical exam- Primary Routine general medical examination at a health care facility Obesity, Class III, BMI 40-49.9 (morbid obesity) (HCC) Morbid obesity Anxiety and depression Dysthymic disorder Bronchospasm Acute bronchospasm Goiter, nontoxic, multinodular Nontoxic multinodular goiter Screening for cervical cancer Screening for malignant neoplasm of the cervix Encounter for hepatitis C screening test for low risk patient Screening for colon cancer Special screening for malignant neoplasms, colon Encounter for screening mammogram for malignant neoplasm of breast Other screening mammogram Elevated blood pressure reading in office with diagnosis of hypertension documented in this encounter [facility] noteNo assessment information availableWKindred Hospital [facility] Work Phone: Evaluation note* Diagnosis Acute intractable headache, unspecified headache type- Primary [facility]* Diagnosis Elevated C-reactive protein (CRP)- Primary [facility]* Diagnosis Sore throat- Primary Acute pharyngitis Exposure to strep throat Contact with or exposure to other communicable diseases Viral URI with cough Acute upper respiratory infections of unspecified site [facility]* Diagnosis Acute left-sided low back pain without sciatica- Primary History of kidney stones Personal history of urinary calculi Leukocytes in urine Other cells and casts in urine [facility] Diagnosis Left flank pain- Primary Abdominal pain, unspecified site Right nephrolithiasis Renal cyst, left Unspecified congenital cystic kidney disease Abnormal urinalysis Other nonspecific finding on examination of urine Other hydronephrosis [facility]* Diagnosis Right nephrolithiasis- Primary Renal cyst, left Unspecified congenital cystic kidney disease Hepatic lesion Other specified disorders of liver [facility] Liver lesion- Primary Other specified disorders of liver Need for influenza vaccination Need for prophylactic vaccination and inoculation against influenza Screening for cervical cancer Screening for malignant neoplasm of the cervix Migraine without aura and without status migrainosus, not intractable Migraine without aura, without mention of intractable migraine without mention of status migrainosus Screening for colon cancer Special screening for malignant neoplasms, colon Family history of liver cancer Family history of malignant neoplasm of gastrointestinal tract [facility] Claustrophobia- Primary Other isolated or specific phobias [facility] Diagnosis Hemangioma of liver- Primary 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 [facility] Diagnosis Acute pain of right knee- Primary Positive Priscilla test of right knee, initial encounter [facility] Diagnosis Positive Priscilla test of right knee, initial encounter- Primary Acute pain of right knee [facility] Diagnosis Panic attacks- Primary Panic disorder without agoraphobia Elevated blood pressure reading in office without diagnosis of hypertension Migraine without aura and without status migrainosus, not intractable Migraine without aura, without mention of intractable migraine without mention of status migrainosus Adjustment disorder with anxiety 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 Hemangioma of liver Hemangioma of intra-abdominal structures Obesity, Class III, BMI >= 40 Morbid obesity [facility] Suspected COVID-19 virus infection- Primary [facility] Diagnosis Liver lesion Other specified disorders of liver [facility] Diagnosis Encounter for screening mammogram for malignant neoplasm of breast Other screening mammogram [facility] Diagnosis Other hydronephrosis [facility] Diagnosis History of kidney stones Personal history of urinary calculi [facility] Diagnosis Primary hypertension- Primary Unspecified essential hypertension [facility] Diagnosis Hyperglycemia- Primary Other abnormal glucose [facility] Encounter for screening mammogram for breast cancer [facility]* Diagnosis Primary hypertension- Primary Unspecified essential hypertension [facility]* Diagnosis Encounter for gynecological examination (general) (routine) without abnormal findings- Primary Encounter for screening mammogram for breast cancer [facility]* Diagnosis URI, acute- Primary Acute upper respiratory infections of unspecified site [facility] this [facility]* Diagnosis Suspected COVID-19 virus infection [facility]* Diagnosis Acute pain of right knee Positive Priscilla test of right knee, initial encounter documented [facility]* Diagnosis Bronchospasm Acute bronchospasm documented [facility]* Diagnosis Viral URI with cough- Primary Acute upper respiratory infections of unspecified site Primary hypertension Unspecified essential hypertension Hyperglycemia Other abnormal glucose Obesity, Class III, BMI >= 40 Morbid obesity Anxiety and depression Dysthymic disorder documented in this encounter [facility] note* Diagnosis Acute cough- Primary Lower respiratory infection Other diseases of respiratory system, not elsewhere classified Acute cough [facility]* Diagnosis Acute cough [facility]* Diagnosis Migraine without aura, not intractable, with status migrainosus- Primary Nausea and vomiting, unspecified vomiting type documented [facility]* Diagnosis Primary hypertension- Primary Unspecified essential hypertension Anxiety in acute stress reaction Predominant disturbance of emotions Mild intermittent extrinsic asthma without complication (HCC) Seasonal allergic rhinitis, unspecified trigger Migraine without aura and without status migrainosus, not intractable Migraine without aura, without mention of intractable migraine without mention of status migrainosus Encounter for screening mammogram for breast cancer [facility]* Diagnosis Encounter for gynecological examination (general) (routine) without abnormal findings- Primary Encounter for screening mammogram for malignant neoplasm of breast Other screening mammogram Abnormal uterine bleeding (AUB) documented [facility]* Diagnosis Encounter for screening mammogram for malignant neoplasm of breast Other screening mammogram [facility] Additional Instructions X-ray negative for fracture or dislocation. Your hardware on your foot intact. Aircast crutches for support weight-bear as tolerated. Follow-up with Dr. Pinto.[facility] Work Phone: Reason for referral (narrative)* Diagnostic Procedure Only (Routine) - Closed Specialty Diagnoses / Procedures Referred By Shanique t Referred To Contact [facility] Diagnoses Encounter for screening mammogram for malignant neoplasm of breast Procedures RUFINO SCREENING SCREENING MAMMOGRAPHY BI 2-VIEW BREAST INC Fransisco Pearson MD [address] [place] [id number] [facility] [address] [place] [address] Referral ID Status Reason Start Date Expiration Date V isits Requested Visits Authorized [id number] Closed Auto-Generate d Referral 03/23/2022 04/22/20[address] [facility] for referral (narrative)* Diagnostic Procedure Only (Routine) - Closed Specialty Diagnoses / Procedures Referred By Shanique ugalde Referred To Contact [facility] Diagnoses History of kidney stones Procedures US KIDNEY/BLADDER US RETROPERITONEAL REAL TIME W/IMAGE COMPLETE Angle Nieto APRN.CNP [address] [place] [id number] [id number] Referral ID Status Reason Start Date Expiration Date V isits Requested Visits Authorized [id number] Closed Auto-Generate d Referral 10/05/2022 11/04/2023 [address] [facility] for referral (narrative)* Diagnostic Procedure Only (Routine) - Pending Review Specialty Diagnoses / Procedures Referred By Shanique t Referred To Contact [facility] Diagnoses Encounter for screening mammogram for breast cancer Procedures RUFINO SCREENING SCREENING MAMMOGRAPHY BI 2-VIEW BREAST INC Fransisco Pearson MD [address] [place] [id number] [facility] [address] [place] [address] Referral ID Status Reason Start Date Expiration Date Visits Requested Visits Authorized [id number] Pending Review Auto-Generat ed Referral 2023 01/16/2025 1 1 [facility] for referral (narrative)* Diagnostic Procedure Only (Routine) - Authorized Specialty Diagnoses / Procedures Referred By Shanique t Referred To Contact [facility] Diagnoses Encounter for screening mammogram for breast cancer Procedures RUFINO SCREENING SCREENING MAMMOGRAPHY BI 2-VIEW BREAST INC CAD Juana Cruz APRN.CNP [address] [place] [address] [facility] [address] [place] [address] Referral ID Status Reason Start Date Expiration Date Visits Requested Visits Authorized [id number] Authorized Auto-Generat ed Referral 03/03/2024 04/02/2025 1 1 [facility] [facility] for [facility] (narrative)* Diagnostic Procedure Only (Routine) - Closed Specialty Diagnoses / Procedures Referred By Shanique ugalde Referred To Contact XR IMAGING Diagnoses Acute pain of right knee Positive Priscilla test of right knee, initial encounter Procedures XR KNEE GENERAL 4V AP BOTH/PA BOTH/LAT/MERC RIGHT RADIOLOGIC EXAM KNEE COMPLETE 4/MORE VIEWS Angle Nieto APRN.CNP [address] [place] [address] [place] [address] Referral ID Status Reason Start Date Expiration Date V isits Requested Visits Authorized [id number] Closed Auto-Generate d Referral 01/25/2023 02/24/2024 1 1 [facility] for referral (narrative)No reason for referral information availableW[facility] Work Phone: Reason for visit Narrative* Diagnostic Procedure Only (Routine) - Closed Specialty Diagnoses / Procedures Referred By Shanique ugalde Referred To Contact BR IMAGING Diagnoses Encounter for screening mammogram for malignant neoplasm of breast Procedures RUFINO SCREENING SCREENING MAMMOGRAPHY BI 2-VIEW BREAST INC CAD Fransisco Angel MD [address] [place] [address] Br Imaging [address] [place] [address] Referral ID Status Reason Start Date Expiration Date V isits Requested Visits Authorized [id number] Closed Auto-Generate d Referral 03/23/2022 04/22/2023 1 1 [facility] for visit Narrative* Diagnostic Procedure Only (Routine) - Closed Specialty Diagnoses / Procedures Referred By Contac t Referred To Contact US IMAGING Diagnoses History of kidney stones Procedures US KIDNEY/BLADDER US RETROPERITONEAL REAL TIME W/IMAGE COMPLETE Angle Nieto APRN.METHODS ANALYST [address] [place] [address] [place] [address] Referral ID Status Reason Start Date Expiration Date V isits Requested Visits Authorized [id number] Closed Auto-Generate d Referral 10/05/2022 11/04/2023 1 1 [facility] for visit Narrative* Diagnostic Procedure Only (Routine) - Closed Specialty Diagnoses / Procedures Referred By Contac t Referred To Contact BR IMAGING Diagnoses Encounter for screening mammogram for breast cancer Procedures RUFINO SCREENING SCREENING MAMMOGRAPHY BI 2-VIEW BREAST INC CAD Juana Cruz, SENIOR UI UX DEVELOPER.METHODS ANALYST [address] [address] Br Imaging [address] [place] [address] Referral ID Status Reason Start Date Expiration Date V isits Requested Visits Authorized [id number] Closed Auto-Generate d Referral 03/03/2024 04/02/2025 1 1 [facility] for visit Narrative* Diagnostic Procedure Only (Routine) - Closed Specialty Diagnoses / Procedures Referred By Contac t Referred To Contact XR IMAGING Diagnoses Acute pain of right knee Positive Priscilla test of right knee, initial encounter Procedures XR KNEE GENERAL 4V AP BOTH/PA BOTH/LAT/MERC RIGHT RADIOLOGIC EXAM KNEE COMPLETE 4/MORE VIEWS Angle Nieto APRN.METHODS ANALYST [address] [place] [address] [place] [address] Referral ID Status Reason Start Date Expiration Date V isits Requested Visits Authorized [id number] Closed Auto-Generate d Referral 01/25/2023 02/24/2024 1 [facility] Procedure Only (Routine) - Closed Specialty Diagnoses / Procedures Referred By Contac t Referred To Contact BR IMAGING Diagnoses Encounter for screening mammogram for malignant neoplasm of breast Procedures RUFINO SCREENING W HELENE SCREENING DIGITAL BREAST TOMOSYNTHESIS BI SCREENING MAMMOGRAPHY BI 2-VIEW BREAST INC CAD Juana Cruz, SENIOR UI UX DEVELOPER.METHODS ANALYST [address] [place] [address] Phone: tel: fax: BR IMAGING [address] [place] [address] Referral ID Status Reason Start Date Expiration Date V isits Requested Visits Authorized [id number] Closed Auto-Generate d Referral 03/05/2025 04/04/2026 1 1 [facility] Health Concerns Infection Onset Date Last Indicated Resolved Time COVID-19 Confirmed 02/04/2022 02/04/2022 Infection Onset Date Last Indicated Resolved Time COVID-19 Rule-Out 09/12/2022 09/12/2022 Reason for Referral Specialty Diagnoses / Procedures Referred By Contac t Referred To Contact Gynecology Diagnoses Screening for cervical cancer Procedures CONSULT TO GYNECOLOGY OFFICE/OUTPATIENT [facility] MDM 60-74 MINUTES Fransisco Angel MD [facility] [place] [address] Referral ID Status Reason Start Date Expiration Date Visits Requested Visits Authorized [id number] Authorized PCP Requested Referral Auto-Generate d Referral 03/23/2022 03/23/2023 1 1 Specialty Diagnoses / Procedures Referred By Contac t Referred To Contact BR IMAGING Diagnoses Encounter for screening mammogram for malignant neoplasm of breast Procedures RUFINO SCREENING SCREENING MAMMOGRAPHY BI 2-VIEW BREAST INC CAD Fransisco Angel MD [address] [place] [address] Br Imaging [address] [place] [address] Referral ID Status Reason Start Date Expiration Date Visits Requested Visits Authorized [id number] Pending Review Auto-Generat ed Referral 03/23/2022 04/22/2023 1 1 Specialty Diagnoses / Procedures Referred By Shanique t Referred To Contact Diagnoses Bronchospasm Fransisco Angel MD [address] [place] [address] Referral ID Status Reason Start Date Expiration Date Visits Re quested Visits Authorized [id number] Closed 1 1 Specialty Diagnoses / Procedures Referred By Contac t Referred To Contact CT IMAGING Diagnoses Other hydronephrosis Procedures CT UROGRAM WO/W IVCON CT ABD & PELVIS W/O CONTRST 1+ BODY REGNS Lyndon Velasquez MD [address] [place] [address] Ct Imaging Referral ID Status Reason Start Date Expiration Date Visits Requested Visits Authorized [id number] Authorized Auto-Generat ed Referral 10/23/2022 11/22/2022 1 1 Specialty Diagnoses / Procedures Referred By Contac t Referred To Contact MR IMAGING Diagnoses Liver lesion Procedures MRI LIVER WO IVCON MRI, ABDOMEN (MRI) Fransisco Angel MD [address] [place], [place] [id number] Mr Imaging Referral ID Status Reason Start Date Expiration Date Visits Requested Visits Authorized [id number] Pending Review Auto-Generat ed Referral 11/14/2022 12/14/2023 1 1 Referral ID Status Reason Start Date Expiration Date Visits Requested Visits Authorized [id number] Authorized PCP Requested Referral Auto-Generate d Referral 11/14/2022 11/14/2023 1 1 Specialty Diagnoses / Procedures Referred By Contac t Referred To Contact MR IMAGING Diagnoses Acute pain of right knee Positive Priscilla test of right knee, initial encounter Procedures MRI KNEE WO IVCON RIGHT MRI ANY JT LOWER EXTREM W/O CONTRAST MATRL Angle Nieto APRN.METHODS ANALYST [address] [place], [place] [id number] Mr Imaging Referral ID Status Reason Start Date Expiration Date Visits Requested Visits Authorized [id number] Pending Review Auto-Generat ed Referral 01/25/2023 02/24/2024 1 1 Specialty Diagnoses / Procedures Referred By Contac t Referred To Contact XR IMAGING Diagnoses Acute pain of right knee Positive Priscilla test of right knee, initial encounter Procedures XR KNEE GENERAL 4V AP BOTH/PA BOTH/LAT/MERC RIGHT RADIOLOGIC EXAM KNEE COMPLETE 4/MORE VIEWS Angle Nieto APRN.METHODS ANALYST [address] [place] [address] Xr Imaging Referral ID Status Reason Start Date Expiration Date V isits Requested Visits Authorized [id number] Closed Auto-Generate d Referral 01/25/2023 02/24/2024 1 1 Specialty Diagnoses / Procedures Referred By Contac t Referred To Contact Orthopedics Diagnoses Positive Priscilla test of right knee, initial encounter Procedures CONSULT TO ORTHOPAEDICS OFFICE/OUTPATIENT [facility] 60-74 MINUTES Angle Nieto SENIOR UI UX DEVELOPER.METHODS ANALYST [address] [place] [address] Referral ID Status Reason Start Date Expiration Date Visits Requested Visits Authorized [id number] Authorized PCP Requested Referral 02/01/2023 02/01/2024 1 1 Specialty Diagnoses / Procedures Referred By Contac t Referred To Contact MR IMAGING Diagnoses 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 Hemangioma of liver Procedures MRI LIVER WO/W IVCON MRI ABDOMEN W/O & W/CONTRAST MATERIAL Barbara Gracia APRN.METHODS ANALYST [address] [place] [id number] [place] [address] Referral ID Status Reason Start Date Expiration Date Visits Requested Visits Authorized [id number] Pending Review Auto-Generat ed Referral 05/15/2023 06/13/2024 1 1 Specialty Diagnoses / Procedures Referred By Contac t Referred To Contact MR IMAGING Diagnoses Liver lesion Procedures MRI LIVER WO/W IVCON MRI ABDOMEN W/O & W/CONTRAST MATERIAL Fransisco Angel MD [address] [place] [id number] [place] [address] Referral ID Status Reason Start Date Expiration Date V isits Requested Visits Authorized [id number] Closed Auto-Generate d Referral 12/06/2022 01/05/2024 1 1 Specialty Diagnoses / Procedures Referred By Contac t Referred To Contact CT IMAGING Diagnoses Other hydronephrosis Procedures CT UROGRAM WO/W IVCON CT ABD & PELVIS W/O CONTRST 1+ BODY REGNS Lyndon Velasquez MD [address] [place] [address] [place] [address] Referral ID Status Reason Start Date Expiration Date V isits Requested Visits Authorized [id number] Closed Auto-Generate d Referral 10/23/2022 11/22/2022 1 1 Chief Complaint and Reason for Visit Chief Complaint LOWER EXTREMITY INJU RY LOWER Chief Complaint LOWER HEADACHE Chief Complaint CHEST PAIN Chief Complaint Admit Date left wrist October 01, 2024 8: 56am Ankle pain January 25, 2025 12: 23pm Advance Directives No Advanced Directives Records Found Advance Directive Response Recorded Date/ Time Living Will No April 02, 2022 3 :42pm Power of [place] Brusher No April 02, 2022 3:42pm Advance Directive Response Recorded Date/ Time Living Will No December 25, 2023 11:42am Power of [place]her No December 24 11:42am Advance Directive Response Recorded Date/ Time Living Will No October 01 10:12am Do you have a Healthcare Power of [place] Brusher? No October 01, 2024 10:12am Do you have a Healthcare Power of [place]usher? No January 25, 2025 12:57pm Medications Administered Section Inactive Administered Medications - up to 3 most recent administrations Medication Order MAR Action Action Date Dose Rate Site keTORolac 60 mg injection (TORADOL) 60 mg, INTRAMUSCULAR, ONCE, 1 dose, On Sat05/22/22 at 1530, Ketorolac (Toradol) is indicated for the short-term (up to 5 days) management of moderately severe acute pain. Continuation of ketorolac (Toradol) beyond 5 days increases the risk of developing serious adverse events. Please verify the duration of therapy for ketorolac (Toradol)., If ordered PRN for pain, patient/guardian may elect to receive this medication for higher pain levels INSTEAD of the opioid, if preferred: Yes Given 05/22/2022 3:23 PM EDT 60 mg Hip, Right Summary Purpose Family History No Family History Records FoundNo Family History Records Found No data available for this section No Family History Records FoundNo Family History Records Found Additional Source Comments Source Comments (unrecognize d section and content) In the event this informatio n is protected by the Federal Confidentiality of Alcohol and Drug Abuse Patient Records regulations: The Federal rules restrict any use of the information to criminally investigate or prosecute any alcohol or drug abuse patient.[facility] SystemIn the event this information is protected by the Federal Confidentiality of Alcohol and Drug Abuse Patient Records regulations: The Federal rules restrict any use of the information to criminally investigate or prosecute any alcohol or drug abuse patient.[facility] SystemIn the event this information is protected by the Federal Confidentiality of Alcohol and Drug Abuse Patient Records regulations: The Federal rules restrict any use of the information to criminally investigate or prosecute any alcohol or drug abuse patient.[facility] SystemIn the event this information is protected by the Federal Confidentiality of Alcohol and Drug Abuse Patient Records regulations: The Federal rules restrict any use of the information to criminally investigate or prosecute any alcohol or drug abuse patient.[facility] SystemIn the event this information is protected by the Federal Confidentiality of Alcohol and Drug Abuse Patient Records regulations: The Federal rules restrict any use of the information to criminally investigate or prosecute any alcohol or drug abuse patient.[facility] SystemIn the event this information is protected by the Federal Confidentiality of Alcohol and Drug Abuse Patient Records regulations: The Federal rules restrict any use of the information to criminally investigate or prosecute any alcohol or drug abuse patient.[facility] SystemIn the event this information is protected by the Federal Confidentiality of Alcohol and Drug Abuse Patient Records regulations: The Federal rules restrict any use of the information to criminally investigate or prosecute any alcohol or drug abuse patient.[facility] SystemIn the event this information is protected by the Federal Confidentiality of Alcohol and Drug Abuse Patient Records regulations: The Federal rules restrict any use of the information to criminally investigate or prosecute any alcohol or drug abuse patient.[facility] SystemIn the event this information is protected by the Federal Confidentiality of Alcohol and Drug Abuse Patient Records regulations: The Federal rules restrict any use of the information to criminally investigate or prosecute any alcohol or drug abuse patient.[facility] SystemIn the event this information is protected by the Federal Confidentiality of Alcohol and Drug Abuse Patient Records regulations: The Federal rules restrict any use of the information to criminally investigate or prosecute any alcohol or drug abuse patient.[facility] SystemIn the event this information is protected by the Federal Confidentiality of Alcohol and Drug Abuse Patient Records regulations: The Federal rules restrict any use of the information to criminally investigate or prosecute any alcohol or drug abuse patient.[facility] SystemIn the event this information is protected by the Federal Confidentiality of Alcohol and Drug Abuse Patient Records regulations: The Federal rules restrict any use of the information to criminally investigate or prosecute any alcohol or drug abuse patient.[facility] SystemIn the event this information is protected by the Federal Confidentiality of Alcohol and Drug Abuse Patient Records regulations: The Federal rules restrict any use of the information to criminally investigate or prosecute any alcohol or drug abuse patient.[facility] SystemIn the event this information is protected by the Federal Confidentiality of Alcohol and Drug Abuse Patient Records regulations: The Federal rules restrict any use of the information to criminally investigate or prosecute any alcohol or drug abuse patient.[facility] SystemIn the event this information is protected by the Federal Confidentiality of Alcohol and Drug Abuse Patient Records regulations: The Federal rules restrict any use of the information to criminally investigate or prosecute any alcohol or drug abuse patient.[facility] SystemIn the event this information is protected by the Federal Confidentiality of Alcohol and Drug Abuse Patient Records regulations: The Federal rules restrict any use of the information to criminally investigate or prosecute any alcohol or drug abuse patient.[facility] SystemIn the event this information is protected by the Federal Confidentiality of Alcohol and Drug Abuse Patient Records regulations: The Federal rules restrict any use of the information to criminally investigate or prosecute any alcohol or drug abuse patient.[facility] SystemIn the event this information is protected by the Federal Confidentiality of Alcohol and Drug Abuse Patient Records regulations: The Federal rules restrict any use of the information to criminally investigate or prosecute any alcohol or drug abuse patient.[facility] SystemIn the event this information is protected by the Federal Confidentiality of Alcohol and Drug Abuse Patient Records regulations: The Federal rules restrict any use of the information to criminally investigate or prosecute any alcohol or drug abuse patient.[facility] SystemIn the event this information is protected by the Federal Confidentiality of Alcohol and Drug Abuse Patient Records regulations: The Federal rules restrict any use of the information to criminally investigate or prosecute any alcohol or drug abuse patient.[facility] SystemIn the event this information is protected by the Federal Confidentiality of Alcohol and Drug Abuse Patient Records regulations: The Federal rules restrict any use of the information to criminally investigate or prosecute any alcohol or drug abuse patient.[facility] SystemIn the event this information is protected by the Federal Confidentiality of Alcohol and Drug Abuse Patient Records regulations: The Federal rules restrict any use of the information to criminally investigate or prosecute any alcohol or drug abuse patient.[facility] SystemIn the event this information is protected by the Federal Confidentiality of Alcohol and Drug Abuse Patient Records regulations: The Federal rules restrict any use of the information to criminally investigate or prosecute any alcohol or drug abuse patient.[facility] SystemIn the event this information is protected by the Federal Confidentiality of Alcohol and Drug Abuse Patient Records regulations: The Federal rules restrict any use of the information to criminally investigate or prosecute any alcohol or drug abuse patient.[facility] SystemIn the event this information is protected by the Federal Confidentiality of Alcohol and Drug Abuse Patient Records regulations: The Federal rules restrict any use of the information to criminally investigate or prosecute any alcohol or drug abuse patient.[facility] SystemIn the event this information is protected by the Federal Confidentiality of Alcohol and Drug Abuse Patient Records regulations: The Federal rules restrict any use of the information to criminally investigate or prosecute any alcohol or drug abuse patient.[facility] SystemIn the event this information is protected by the Federal Confidentiality of Alcohol and Drug Abuse Patient Records regulations: The Federal rules restrict any use of the information to criminally investigate or prosecute any alcohol or drug abuse patient.[facility] SystemIn the event this information is protected by the Federal Confidentiality of Alcohol and Drug Abuse Patient Records regulations: The Federal rules restrict any use of the information to criminally investigate or prosecute any alcohol or drug abuse patient.[facility] SystemIn the event this information is protected by the Federal Confidentiality of Alcohol and Drug Abuse Patient Records regulations: The Federal rules restrict any use of the information to criminally investigate or prosecute any alcohol or drug abuse patient.[facility] SystemIn the event this information is protected by the Federal Confidentiality of Alcohol and Drug Abuse Patient Records regulations: The Federal rules restrict any use of the information to criminally investigate or prosecute any alcohol or drug abuse patient.[facility] SystemIn the event this information is protected by the Federal Confidentiality of Alcohol and Drug Abuse Patient Records regulations: The Federal rules restrict any use of the information to criminally investigate or prosecute any alcohol or drug abuse patient.[facility] SystemIn the event this information is protected by the Federal Confidentiality of Alcohol and Drug Abuse Patient Records regulations: The Federal rules restrict any use of the information to criminally investigate or prosecute any alcohol or drug abuse patient.[facility] SystemIn the event this information is protected by the Federal Confidentiality of Alcohol and Drug Abuse Patient Records regulations: The Federal rules restrict any use of the information to criminally investigate or prosecute any alcohol or drug abuse patient.[facility] SystemIn the event this information is protected by the Federal Confidentiality of Alcohol and Drug Abuse Patient Records regulations: The Federal rules restrict any use of the information to criminally investigate or prosecute any alcohol or drug abuse patient.[facility] SystemIn the event this information is protected by the Federal Confidentiality of Alcohol and Drug Abuse Patient Records regulations: The Federal rules restrict any use of the information to criminally investigate or prosecute any alcohol or drug abuse patient.[facility] SystemIn the event this information is protected by the Federal Confidentiality of Alcohol and Drug Abuse Patient Records regulations: The Federal rules restrict any use of the information to criminally investigate or prosecute any alcohol or drug abuse patient.[facility] SystemIn the event this information is protected by the Federal Confidentiality of Alcohol and Drug Abuse Patient Records regulations: The Federal rules restrict any use of the information to criminally investigate or prosecute any alcohol or drug abuse patient.[facility] SystemIn the event this information is protected by the Federal Confidentiality of Alcohol and Drug Abuse Patient Records regulations: The Federal rules restrict any use of the information to criminally investigate or prosecute any alcohol or drug abuse patient.[facility] SystemIn the event this information is protected by the Federal Confidentiality of Alcohol and Drug Abuse Patient Records regulations: The Federal rules restrict any use of the information to criminally investigate or prosecute any alcohol or drug abuse patient.[facility] SystemIn the event this information is protected by the Federal Confidentiality of Alcohol and Drug Abuse Patient Records regulations: The Federal rules restrict any use of the information to criminally investigate or prosecute any alcohol or drug abuse patient.[facility] SystemIn the event this information is protected by the Federal Confidentiality of Alcohol and Drug Abuse Patient Records regulations: The Federal rules restrict any use of the information to criminally investigate or prosecute any alcohol or drug abuse patient.[facility] SystemIn the event this information is protected by the Federal Confidentiality of Alcohol and Drug Abuse Patient Records regulations: The Federal rules restrict any use of the information to criminally investigate or prosecute any alcohol or drug abuse patient.[facility] SystemIn the event this information is protected by the Federal Confidentiality of Alcohol and Drug Abuse Patient Records regulations: The Federal rules restrict any use of the information to criminally investigate or prosecute any alcohol or drug abuse patient.[facility] SystemIn the event this information is protected by the Federal Confidentiality of Alcohol and Drug Abuse Patient Records regulations: The Federal rules restrict any use of the information to criminally investigate or prosecute any alcohol or drug abuse patient.[facility] SystemIn the event this information is protected by the Federal Confidentiality of Alcohol and Drug Abuse Patient Records regulations: The Federal rules restrict any use of the information to criminally investigate or prosecute any alcohol or drug abuse patient.[facility] Reason for Visit (unrecogniz ed section and content) Reason Comments Fatigue fever, + home Covid AM, SOB Ear Problem bilateral ear plugge d, [place] pain rated 5 Reason Comments Recheck Reason Comments Establish Care Reason Comments headache x 2 days Taken motrin, tyleno l and excedrin migraine with no relief Reason Onset Date Comments Refill Request 07/24/2022 Reason Comments Sore Throat headache, bodyaches x last night Reason Comments Back Pain started about 2 days ago questions kidney stones as had history of. Reason Comments Kidney Stones Specialty Diagnoses / Procedures Referred By Shanique ugalde Referred To Contact Urology Diagnoses History of kidney stones Kidney stones Procedures CONSULT TO UROLOGY OFFICE/OUTPATIENT [facility] 60-74 MINUTES Angle Nieto APRN.METHODS ANALYST [address] [place] [address] Referral ID Status Reason Start Date Expiration Date V isits Requested Visits Authorized [id number] Closed PCP Requested Referral 10/15/2022 10/15/2023 1 1 Reason Comments left flank pain Reason Onset Date Comments Discussion Immunizations 11/14/2022 Flu vaccination Reason Comments Patient Question Reason Comments Recheck MRI results Reason Comments Knee Injury WC right knee 2022 Specialty Diagnoses / Procedures Referred By Contac t Referred To Contact Internal Medicine / FAMILY MEDICINE Diagnoses Knee injury Procedures REFERRAL TO [facility] MYC OFFICE VISIT Self Angle Nieto APRN.METHODS ANALYST [address] [place] [address] Referral ID Status Reason Start Date Expiration Date V isits Requested Visits Authorized [id number] Outside PCP 01/25/2023 03/26/2023 1 1 Reason Comments Knee Pain right knee Reason Comments Orders Reason Comments Appointment Reason Onset Date Comments Refill Request 03/05/2023 Reason Comments F/U 6 months Reason Comments Cough Chest congestion x1 week Reason Comments MRI Appointment Specialty Diagnoses / Procedures Referred By Contac t Referred To Contact MR IMAGING Diagnoses Liver lesion Procedures MRI LIVER WO/W IVCON MRI ABDOMEN W/O & W/CONTRAST MATERIAL Fransisco Angel MD [address] [place] [address] Mr Imaging [facility] Referral ID Status Reason Start Date Expiration Date V isits Requested Visits Authorized [id number] Closed Auto-Generate d Referral 12/06/2022 01/05/2024 [address] Specialty Diagnoses / Procedures Referred By Contac t Referred To Contact CT IMAGING Diagnoses Other hydronephrosis Procedures CT UROGRAM WO/W IVCON CT ABD & PELVIS W/O CONTRST 1+ BODY Lyndon Kerr MD [address] [place] [address] [place] [id number] Referral ID Status Reason Start Date Expiration Date V isits Requested Visits Authorized [id number] Closed Auto-Generate d Referral 10/23/2022 11/22/2022 1 1 Reason Comments BP Check Reason Comments F/U HTN 3 Month Reason Comments Yearly Exam Reason Comments Sore Throat [place], neck pain x1 day Reason Comments Follow Up Blood pressure, coug h and chest congestion for 2 days Reason Comments Cough Chest discomfort x 3 weeks, sore throat, LU ear pain x 1 day Reason Comments Headache X 3 days Reason Comments Follow Up 6 months Ear Pain Bilateral ear pain x 1 week Reason Comments Yearly Exam Care Teams (unrecognized sec tion and content) Care Team Personnel Name: PHYSICIAN, NOT RECORDED Member Role: Primary Care Physician Care Team Related Persons Name: ORTEGA HARP Team Status: Active Member Role Status Dates Dr. Fransisco Angel MD Primary Care Provider Active Team Status: Inactive Member Role Status Dates Dr. Fransisco Angel MD Primary Care Provider Active Start: October 01, 2024 End: October 01, 2024 Dr. Guillermo Hinton DO Attending Provider Active Start: October 01, 2024 End: October 01, 2024 Dr. Guillermo Hinton DO Emergency Provider Active Start: October 01, 2024 End: October 01, 2024 Team Status: Inactive Member Role Status Dates Dr. Fransisco Angel MD Primary Care Provider Active Start: January 25, 2025 End: January 25, 2025 Dr. Wai Donnelly DO Emergency Provider Active Start : January 25, 2025 End: January 25, 2025 Team Status: Active Member Role Status Dates No Primary Care Physician Family Provider Active Dr. Fransisco Angel MD Primary Care Provider Active Team Status: Inactive Member Role Status Dates Dr. Michaelle Mock DO Emergency Provider Active Dr. Fransisco Angel MD Primary Care Provider Active Graduate Teacher Education Relationship Specialty Start Date End Date Fransisco Angel MD [address] [place] [address] PCP - General Internal Medicine 03/23/22 Graduate Teacher Education Relationship Specialty Start Date End Date Fransisco Angel MD [address] [place], [place] [id number] PCP - General Internal Medicine 03/23/22 Goals (unrecognized section and content) Goals may be documented in a n alternate sectionGoals may be documented in an alternate sectionGoals may be documented in an alternate sectionGoals may be documented in an alternate sectionGoals may be documented in an alternate section No data available for this section INFORMATION SOURCE (unrecogn ized section and content) DATE CREATED AUTHOR 11/14/2022 [facility] DATE CREATED AUTHOR AUTHOR'S ORGANIZ ATION 01/26/2025 [facility] DATE CREATED AUTHOR AUTHOR'S ORGANIZ ATION 03/21/2025 [facility] DATE CREATED AUTHOR AUTHOR'S ORGANIZ ATION 04/16/2025 [facility] FOR RECORDS PERTAINING TO PATIENTS WHO ARE OR HAVE BEEN ENROLLED IN A CHEMICAL DEPENDENCY/SUBSTANCEABUSE PROGRAM, SOME INFORMATION MAY BE OMITTED. This clinical summary was aggregated from multiple sources. Caution should be exercised in using it in the provision of clinical care. This summary normalizes information from multiple sources, and as a consequence, information in this document may materially change the coding, format and clinical context of patient data. In addition, data may be omitted in some cases. CLINICAL DECISIONS SHOULD BE BASED ON THE PRIMARY CLINICAL RECORDS. [facility]. provides no warranty or guarantee of the accuracy or completeness of information in this document.
--- OUTSIDE RECORDS SUMMARY | 2025-05-10 22:02 | XMS RPT_ITS | CCD ---
Author Organization [facility] Care Team Providers Care Attorney Recruiter Name Role Phone (History), None Primary Care Provider UnavailFransisco Sierra MD Primary Care Provider Fransisco Angel MD Primary Care Provider Fransisco Angel MD Primary Care Provider LYNDON VELASQUEZ Attending Unavailable ANGLE NIETO Referring Unavailable FRANSISCO ANGEL Primary Care Unavailable LYNDON VELASQUEZ Attending Unavailable FRANSISCO ANGEL Primary Care Unavailable Fransisco Angel MD Primary Care Provider [phone] (History), None Primary Care Provider Unavailmali Coronado RECENTERER.Barbara BYERS Unavailable Dr. Fransisco Angel MD Primary Care Provider Dr. Guillermo Hinton DO Attending Provider Dr. Guillermo Hinton DO Emergency Provider Dr. Wai Donnelly DO Emergency Provider Fransisco Angel Primary Care Unavailable Wai Donnelly [...] [GRASS POLLEN] Propensity to adverse reactions 5 [facility] (20 sources) Naproxen; Translations: [NAPROXEN] Drug Allergy 5 [facility] (20 sources) IVORY [Other] Propensity to adverse reactions 5 [facility] (1 source) OTHER; Translations: [OTHER] Propensity to adverse reactions (disorder) 5 [facility] Other [place] [facility] (1 source) Naproxen Drug Allergy 5 [facility] Repository Medications Current Medications Medication Drug Class(es) [...] for pain for up to 7 days. [id number] 200 actuat albuterol 0.09 mg/actuat metered dose [...] Comment on above: Take 1 tablet by [facility] one time only for 1 dose. 30 [...] then stop Take 2 tablets by mo [facility] once daily for 5 days. topiramate 25 [...] Physician Interpretation * * * * RESULT: [place] [address] #[id number] - RUFINO SCREENING W HELENE HISTORY: 49 [...] Taylor Amanda M.D. Electronically signed on: 04/13/2025 Agency Cashier: MANUEL Transcribe Date/Time: Apr 12 2025 2:42P Dictated by: TAYLOR AMANDA MD This examination was interpreted and the report reviewed and electronically signed by: TAYLOR AMANDA MD on Apr 13 2025 10:28AM EST [id number] N Normal [facility] XR HAND AND WRIST 6 VIEWS [...] 03/18/2025 11:16:49 PM Ordering Provider: JAIME South [facility] CBC panel Auto (Bld)on 03-09 Erythrocyte distribution width (RBC) [Ratio] 12.9 % Normal 11.5-15.0 [facility] Comment on above: Order Comment: Speci men Type: BLOOD SPECIMENOrdering Facility: [facility] Address: [address] [place] [address] Performed By: #### 5 8410-2 ####[facility] [id number] [place] [address] [place] Hematocrit (Bld) [Volume fraction] 37.3 % Normal 36.0-46.0 [facility] Comment on above: Order Comment: Speci men Type: BLOOD SPECIMENOrdering Facility: [facility] Address: [address] [place] [address] Performed By: #### 5 8410-2 ####[facility] [id number] [place] [address] [place] Hemoglobin (Bld) [Mass/Vol] 12.2 g/dL Normal 11.5-15.5 [facility] Comment on above: Order Comment: Speci men Type: BLOOD SPECIMENOrdering Facility: [facility] Address: [address] [place] [address] Performed By: #### 5 8410-2 ####[facility] [id number] [place] [address] [place] MCH (RBC) [Entitic mass] 28.8 pg Normal 26.0-34.0 [facility] Comment on above: Order Comment: Speci men Type: BLOOD SPECIMENOrdering Facility: [facility] Address: [address] [place] [address] Performed By: #### 5 8410-2 ####[facility] [id number] [place] [id number] [place] MCHC (RBC) [Mass/Vol] 32.7 g/dL Normal 30.5-36.0 [facility] Comment on above: Order Comment: Speci men Type: BLOOD SPECIMENOrdering Facility: [facility] Address: [address] [place] [address] Performed By: #### 5 8410-2 ####[facility] [id number] [place] [address] [place] MCV (RBC) [Entitic vol] 88.2 fL Normal 80.0-100.0 [facility] Comment on above: Order Comment: Speci men Type: BLOOD SPECIMENOrdering Facility: [facility] Address: [address] [place] [address] Performed By: #### 5 8410-2 ####[facility] [id number] [place] [address] [place] Nucleated RBC (Bld) [#/Vol] 10*3/uL Normal <0.01 [facility] Comment on above: Order Comment: Speci men Type: BLOOD SPECIMENOrdering Facility: [facility] Address: [address] [place] [address] Performed By: #### 5 8410-2 ####[facility] [id number] [place] [address] [place] Platelet mean volume (Bld) [Entitic vol] 8.8 fL Low 9.0-12.7 [facility] Comment on above: Order Comment: Speci men Type: BLOOD SPECIMENOrdering Facility: [facility] Address: [address] [place] [address] Performed By: #### 5 8410-2 ####[facility] [id number] [place] [address] [place] Platelets (Bld) [#/Vol] 437 10*3/uL High 150-400 [facility] Comment on above: Order Comment: Speci men Type: BLOOD SPECIMENOrdering Facility: [facility] Address: [address] [place] [address] Performed By: #### 5 8410-2 ####[facility]IA [id number] [place] [address] [place] RBC (Bld) [#/Vol] 4.23 10*6/uL Normal 3.90-5.20 [facility] Comment on above: Order Comment: Speci men Type: BLOOD SPECIMENOrdering Facility: [facility] Address: [address] [place] [address] Performed By: #### 5 8410-2 ####[facility] [id number] [place] [address] [place] WBC (Bld) [#/Vol] 10.90 10*3/uL Normal 3.70-11.00 [facility] Comment on above: Order Comment: Speci men Type: BLOOD SPECIMENOrdering Facility: [facility] Address: [address] [place] [address] Performed By: #### 5 8410-2 ####[facility] [id number] [place] [address] [place] Comprehensive metabolic 2000 panelon 03-09-2025 Albumin [Mass/Vol] 4.4 g/dL Normal 3.9-4.9 [facility] Comment on above: Order Comment: Speci men Type: BLOOD SPECIMENOrdering Facility: [facility] Address: [address] [place] [address] Performed By: #### L IPNF, 83724-5 ####[facility] [id number] [place] [address] [place] ALP [Catalytic activity/Vol] 71 U/L Normal 34-123 [facility] Comment on above: Order Comment: Speci men Type: BLOOD SPECIMENOrdering Facility: [facility] Address: [address] [place] [address] Performed By: #### L IPNF, 46499-0 ####[facility] [id number] [place] [id number] [place] ALT [Catalytic activity/Vol] 25 U/L Normal 7-38 [facility] Comment on above: Order Comment: Speci men Type: BLOOD SPECIMENOrdering Facility: [facility] Address: [address] [place], [place] [address] Performed By: #### L IPNF, 67741-3 ####[facility] [id number] [address] [address] [place] Anion gap [Moles/Vol] 9 mmol/L Normal 8-15 [facility] Comment on above: Order Comment: Speci men Type: BLOOD SPECIMENOrdering Facility: [facility] Address: [address] [place] [address] Performed By: #### L IPNF, 77885-1 ####[facility] [id number] [place] [id number] [place] AST [Catalytic activity/Vol] 25 U/L Normal 13-35 [facility] Comment on above: Order Comment: Speci men Type: BLOOD SPECIMENOrdering Facility: [facility] Address: [address] [place] [address] Performed By: #### L IPNF, 34245-3 ####[facility] [id number] [place] [id number] [place] Bilirubin [Mass/Vol] 0.4 mg/dL Normal 0.2-1.3 [facility] Comment on above: Order Comment: Speci men Type: BLOOD SPECIMENOrdering Facility: [facility] Address: [address] [place], [place] [address] Performed By: #### L IPNF, 73227-9 ####[facility] [id number] [address] [address] [place] Calcium [Mass/Vol] 9.2 mg/dL Normal 8.5-10.2 [facility] Comment on above: Order Comment: Speci men Type: BLOOD SPECIMENOrdering Facility: [facility] Address: [address] [place], [place] [address] Performed By: #### L IPNF, 82566-7 ####[facility] [id number] [place] [id number] [place] Chloride [Moles/Vol] 104 mmol/L Normal 98-107 [facility] Comment on above: Order Comment: Speci men Type: BLOOD SPECIMENOrdering Facility: [facility] Address: [address] [place] [address] Performed By: #### L IPNF, 27017-5 ####[facility] [id number] [place] [address] [place] CO2 [Moles/Vol] 25 mmol/L Normal 22-30 [facility] Comment on above: Order Comment: Speci men Type: BLOOD SPECIMENOrdering Facility: [facility] Address: [address] [place] [address] Performed By: #### L IPNF, 37555-9 ####[facility] [id number] [address] STATES OF [facility] Creatinine [Mass/Vol] 0.73 mg/dL Normal 0.58-0.96 [facility] Comment on above: Order Comment: Speci men Type: BLOOD SPECIMENOrdering Facility: [facility] Address: [address] [place] [address] Performed By: #### L IPNF, 54124-4 ####[facility] [id number] [address] OF [facility] Creatinine and Glomerular filtration rate.predicted panel (S/P/Bld) 102 mL/min/1.73m??? Normal >=60 [facility] Comment on above: Order Comment: Speci men Type: BLOOD SPECIMENOrdering Facility: [facility] Address: [address] [place] [address] Result Comment: Suze mated Glomerular Filtration Rate [...] actual GFR. Performed By: #### L AUGUSTO, 50878-7 ####[facility] [id number] [address] [address] [place] Glucose [Mass/Vol] 82 mg/dL Normal 74-99 [facility] Comment on above: Order Comment: Speci men Type: BLOOD SPECIMENOrdering Facility: [facility] Address: [address] [place] [address] Result Comment: The [place] Diabetes Association (ADA) provides guidance for cutoff [...] Standards of Medical Care in Diabetes 2016, [place] Diabetes Association. Diabetes Care. 2016.39(Suppl 1). Performed By: #### L AUGUSTO, 38429-5 ####[facility] [id number] [address] [address] [place] Potassium [Moles/Vol] 4.6 mmol/L Normal 3.7-5.1 [facility] Comment on above: Order Comment: Markell lal Type: BLOOD SPECIMENOrdering Facility: [facility] Address: [address] [place] [address] Performed By: #### L AUGUSTO, 45786-1 ####[facility] [id number] [address] [address] [place] Protein [Mass/Vol] 7.3 g/dL Normal 6.3-8.0 [facility] Comment on above: Order Comment: Markell lal Type: BLOOD SPECIMENOrdering Facility: [facility] Address: [address] [place] [address] Performed By: #### L IPNF, 10611-0 ####[facility] [id number] [place] [id number] [place] Sodium [Moles/Vol] 138 mmol/L Normal 136-144 [facility] Comment on above: Order Comment: Speci men Type: BLOOD SPECIMENOrdering Facility: [facility] Address: [address] [place] [address] Performed By: #### L IPNF, 79731-5 ####[facility] [id number] [place] [address] [place] Urea nitrogen [Mass/Vol] 9 mg/dL Normal 7-21 [facility] Comment on above: Order Comment: Speci men Type: BLOOD SPECIMENOrdering Facility: [facility] Address: [address] [place] [address] Performed By: #### L IPNF, 60904-6 ####[facility]IA [id number] [place] [address] [place] HbA1c (Bld)on 03-09-2025 Average glucose Estimated from glycated hemoglobin (Bld) [Mass/Vol] 114 mg/dL Normal [facility] Comment on above: Order Comment: Speci men Type: BLOOD SPECIMENOrdering Facility: [facility] Address: [address] [place] [address] Result Comment: eAG: (Estimated average glucose) is a calculated value from HgbA1c and is member service representative of the average blood glucose level in the last 2-3 month period. Performed By: #### 5 5454-3 ####[facility] [id number] [place] [address] [place] HbA1c (Bld) [Mass fraction] 5.6 % Normal 4.3-5.6 [facility] Comment on above: Order Comment: Speci men Type: BLOOD SPECIMENOrdering Facility: [facility] Address: [address] [place] [address] Result Comment: Amer ican Diabetes Association guidelines indicate that patients with HgbA1c in the range 5.7-6.4% are at increased risk for development of diabetes, and intervention by lifestyle modification may be beneficial. HgbA1c greater or equal to 6.5% is considered diagnostic of diabetes. Performed By: #### 5 5454-3 ####[facility] [id number] [place] [address] [place] [facility] [place] LIPID PANEL, NONFASTINGon Cholesterol [Mass/Vol] 126 mg/dL Normal <200 [facility] Comment on above: Order Comment: Markell lal Type: BLOOD SPECIMENOrdering Facility: [facility] Address: [address] [place] [address] Result Comment: <200 mg/dL, Desirable 200-239 mg/dL, Borderline high >239 mg/dL, High Performed By: #### L IPNF, 10296-1 ####[facility]IA [id number] [place] [address] [place] HDL CHOLESTEROL, NF 40 mg/dL Normal >39 [facility] Comment on above: Order Comment: Markell lal Type: BLOOD SPECIMENOrdering Facility: [facility] Address: [address] [place] [address] Result Comment: 40-5 9 mg/dL, Acceptable >59 mg/dL, High: Negative risk factor for coronary heart disease <40 mg/dL, Low: Positive risk factor for coronary heart disease Performed By: #### L IPNF, 19006-9 ####[facility] [id number] [address] [place] LDL CHOLESTEROL CALCULATED, NF 59 mg/dL Normal <100 [facility] Comment on above: Order Comment: Markell lal Type: BLOOD SPECIMENOrdering Facility: [facility] Address: [address] [place] [address] Result Comment: <100 mg/dL, Optimal 100-129 mg/dL, Near optimal/above optimal 130-159 mg/dL, Borderline high 160-189 mg/dL, High >189 mg/dL, Very high Secondary prevention optimal LDL Cholesterol levels are recommended to be <70 mg/dL LDL cholesterol is calculated using the Caldwell-NIH equation. Performed By: #### L AUGUSTO, 94125-0 ####[facility] [id number] [address] OF [facility] LDL/HDL RATIO, NF 1.48 mg/dL Normal <2.54 [facility] Comment on above: Order Comment: Roxiei men Type: BLOOD SPECIMENOrdering Facility: [facility] Address: [address] [place] [address] Result Comment: Refe rence: 1. National Cholesterol Education Program ATP III Guideline At-A-Glance Quick Desk Reference: National Heart, Lung, and Blood Brick. National Institutes of Health. 2001: NIH Publication No. 01-3305. 2. An International Atherosclerosis Society position paper: global recommendations for the management of dyslipidemia: executive summary, Atherosclerosis. 2014: 232(2):410-413. Performed By: #### L AUGUSTO, ####[facility] [id number] [address] NON HDL CHOL, NF 86 mg/dL Normal <130 [facility] Comment on above: Order Comment: Markell lal Type: BLOOD SPECIMENOrdering Facility: [facility] Address: [address] [place] [address] Result Comment: <130 mg/dL, Optimal 130-159 mg/dL, Near optimal/above optimal 160-189 mg/dL, Borderline high 190-219 mg/dL, High >219 mg/dL, Very high Secondary prevention optimal non HDL Cholesterol levels are recommended to be <100 mg/dL Performed By: #### L AUGUSTO, ####[facility] [id number] [place] [id number] [facility] T CHOL/HDL RATIO NF 3.15 mg/dL Normal <5.10 [facility] Comment on above: Order Comment: Speci men Type: BLOOD SPECIMENOrdering Facility: [facility] Address: [address] [place] [address] Performed By: #### L IPNF, 72374-9 ####[facility] [id number] [place] [address] [place] TRIGLYCERIDES, NF 155 mg/dL High <150 [facility] Comment on above: Order Comment: Speci men Type: BLOOD SPECIMENOrdering Facility: [facility] Address: [address] [place] [address] Result Comment: <150 mg/dL, Normal 150-199 mg/dL, Borderline high 200-499 mg/dL, High >499 mg/dL, Very high Performed By: #### L IPNF, 79431-3 ####[facility] [id number] [place] [address] [place] VLDL CHOLESTEROL, NF 23 mg/dL Normal <30 [facility] Comment on above: Order Comment: Speci men Type: BLOOD SPECIMENOrdering Facility: [facility] Address: [address] [place] [address] Performed By: #### L IPNF, 57221-5 ####[facility] [id number] [place] [address] [place] CNOVon 03-05-2025 CNOV Office Visit (OBGYWM ) ANTONIA CORONADO ([id number]) 1975 F Date Time Provider Department 03/05/25 4:00 PM JUANA CRUZ OBWHITNEY During your visit today, we recorded the following information about you: Blood pressure Weight Height Last Period 124/82 134.3 kg 1.676 m 02/18/25 Juana Cruz APRN.BUILDING SUPERINTENDENT 03/05/2025 4:14 PM Signed Juliane is a [...] Living4 SAB2 IAB0 Ectopic0 Multiple0 Live Births4 Buttonholer History LMP: 02/18/2025 (Exact Date), Perimenopausal Age at Menarche: 15 Age at First : Age at Menopause: Buttonholer History Comments: Sexual Activity: Yes; Male Contraception: [...] discussed with the Patient or Patient's Authorized Athletic Trainer. As applicable, any other physician, advance practice provider, medical student, or other health professional student that will be observing or involved in the sensitive examination for educational or training purposes was discussed with the Patient or Authorized Athletic Trainer. The Patient or Authorized Athletic Trainer has agreed to proceed with the sensitive [...] external genitalia normal, normal Bartholin's glands, urethra, Marrowbone's glands, no vulvar lesions, no cervical lesions, physiologic discharge present, normal appearing perineal body and perianal region BIMANUAL: uterus normal size, shape and consistency, no adnexal masses, and non-tender RECTOVAGINAL: deferred. NEURO: alert and oriented x3,exam grossly non-focal EXTREMITIES: normal ASSESSMENT/PLAN: 1. Encounter for gynecological exa (more content not included)... Normal [facility] CNOVon 02-23-2025 CNOV Office Visit (INTMWS ) ANTONIA CORONADO ([id number]) 1975 F Date Time Provider Department 02/23/25 2:40 PM BARBARA CORONADO INTMWS During your visit today, we recorded the following information about you: Pulse Respiration Blood pressure Weight 94/minute 16/minute 122/84 136.5 kg Barbara Coronado, RECENTERER.BUILDING SUPERINTENDENT 02/23/2025 2:58 PM Signed We discussed your [...] in March. You can schedule this through Incont, but please ensure it is scheduled for [...] appointment, please let us know. Barbara Coronado, RECENTERER.BUILDING SUPERINTENDENT 02/23/2025 3:07 PM Signed CC: Patient presents with: Follow Up: 6 months Ear Pain: Bilateral ear pain x 1 week HPI Recording using [employer] software for draft documentation of the visit was discussed with the patient/authorized member service representative; all questions welcomed and answered. Patient/authorized member service representative agreed to proceed Juliane is a [...] Grass P (more content not included)... Normal [facility] Ankle min 3 Viewson 01-26-20 Ankle min 3 Views [facility] [address] [place], [place] [address] Ankle min 3 Views MR#: [id number] Acct: [id number] Name: ANTONIA CORONADO Rep #: [id number] : 1975 F 49 From: Chris Sánchez MD PCP: Dr. Fransisco Angel MD Status: REG ER Study: Ankle min 3 Views Date of Exam: 01/25/25 Exam# [id number] Ordering Dr: Wai Donnelly DO PROCEDURE: ANKLE [...] Wai Donnelly DO; Dr. Fransisco Angel MD Agency Cashier: Signed Normal [facility] Emergency Department Summary on 01-25-[address] [facility] Records Department [address] [place] [address] Emergency Department Summary 01/25/25 MR#: [id number] Acct: [id number] Name: ANTONIA CORONADO Rep #: [id number] : 1975 49 From: Wai Fitch PCP: [...] clinician: N/A This note was generated with [employer] dictation software. It may contain incorrect words, spelling, and punctuation that were not noted in checking the note before signing. 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 Reading Location: [facility] Discharge Plan Triage Chief Complaint: Lower Extremity Injury ED Provider (more content not included)... Normal [facility] CNOVon 01-01-2025 CNOV Office Visit (INTMWS ) ANTONIA CORONADO ([id number]) 1975 F Date Time Provider Department 01/01/25 8:00 AM BARBARA CORONADO INTMWS During your visit today, we recorded the following information about you: Pulse Respiration Blood pressure Weight 84/minute 12/minute 122/78 136 kg Barbara Coronado, RECENTERER.BUILDING SUPERINTENDENT 01/01/2025 8:06 AM Signed We discussed your migraine: - I administered a Toradol injection today to help alleviate your headache. While it may not completely resolve the pain, it should make you more comfortable until you can take your Imitrex. - I refilled your Imitrex prescription, which you can sampler pickup at [facility] in [place]. Please take it as soon as you [...] any further questions or concerns. Barbara Coronado, RECENTERER.BUILDING SUPERINTENDENT 01/01/2025 9:37 AM Signed CC: Patient presents with: Headache: X 3 days HPI The patient consented to the use of ambient AI software for draft documentation of the visit consistent with [facility]?s Notice of Privacy Practices. Juliane is a [...] if inef (more content not included)... Normal [facility] Emergency Department Summary on 10-01-[address] [facility] Records Department [address] [place] [address] Emergency Department Summary 10/01/24 MR#: [id number] Acct: [id number] Name: ANTONIA CORONADO Rep #: [id number] : 1975 48 From: Guillermo Hinton DO [...] for Parasthesia, Weakness or Loss of Funtion [facility] Medical History (Updated 10/01/24 @ 09:36 by [...] and was (more content not included)... Normal [facility] Wrist min 3 Viewson 10-01-19 Wrist min 3 Views [facility] [address] [place] [address] Wrist min 3 Views MR#: [id number] Acct: [id number] Name: ANTONIA CORONADO Rep #: [id number] : 1975 F 48 From: Fernando Beyer MD PCP: Dr. Fransisco Angel MD Status: REG ER Study: Wrist min 3 Views Date of Exam: 10/01/24 Exam# [id number] Ordering Dr: Guillermo Hinton DO [id number] STUDY: X-RAY - LEFT WRIST REASON FOR [...] Guillermo Hinton DO; Dr. Fransisco Angel MD Agency Cashier: Signed [facility] 09-07-2024 [facility] Office Visit (UCTR ) ANTONIA CORONADO ([id number]) 1975 F Date Time Provider Department 09/07/24 3:30 PM [facility]OE [facility] During your visit today, we recorded the following information about you: Temperature Pulse Respiration Blood pressure 98.5 degrees 73/minute 20/minute 120/70 Weight 131.9 kg Zoe Raya APRN.[facility] 09/07/2024 5:31 PM Signed This note [...] history is provided by the patient. No photographer's model was used. Cough This is a new [...] Neurological: Negat (more content not included)... Normal [facility] XR CHEST 2V FRONTAL/LATon XR CHEST [...] degenerative changes. IMPRESSION: No acute radiographic abnormality. Agency Cashier: JERONIMO Transcribe Date/Time: Sep 07 2024 3:57P Dictated by : RENA CAMP MD This examination was interpreted and the report reviewed and electronically signed by: RENA CAMP MD on Sep 07 2024 3:58PM EST [id number] Normal [facility] XR Chest PA and Lateralon IMPRESSION: No acute radiographic abnormality. Agency Cashier: PSC Transcribe Date/Time: Sep 07 2024 3:57P [...] changes. DIVISION OF RADIOLOGY Provider, Julia ramirez Brick - 09/07/2024 * * *Final Report* * [...] changes. IMPRESSION IMPRESSION: No acute radiographic abnormality. Agency Cashier: PSCB Transcribe Date/Time: Sep 07 2024 3:57P Dictated by : RENA CAMP MD This examination was interpreted and the report reviewed and electronically signed by: RENA CAMP MD on Sep 07 2024 3:58PM EST [facility] Radiology Study observation (narrative) Lan Banerjee XR Chest PA and LateralOrder ed By: Ccf Provider on 09-07-2024 [facility] CNOVon 08-24-2024 CNOV Office Visit (INTMWS ) ANTONIA CORONADO ([id number]) 1975 F Date Time Provider Department 08/24/24 2:40 PM BARBARA CORONADO INTMWS During your visit today, we recorded the following information about you: Temperature Pulse Blood pressure Weight 98.6 degrees 91/minute 112/78 130.6 kg Height 1.702 m Barbara Coronado, RECENTERER.BUILDING SUPERINTENDENT 08/24/2024 3:00 PM Signed CC: Patient presents [...] Left Ear: Tympanic membrane normal. Mouth/Throat: Lips: [place]. Mouth: Mucous membranes are moist. Pharynx: Oropharynx [...] Status: S (more content not included)... Normal [facility] COVID AND INFLUENZA A/B AND RSV PCR, ROUTINEon 08-24-2024 SARS-CoV-2 (COVID-19) RNA ESTHER+probe Ql (Unsp spec) SARS-COV-2 (AGENT OF COVID-19) RNA: Not detected INFLUENZA A RNA: Not detected INFLUENZA B RNA: Not detected RESPIRATORY SYNCYTIAL VIRUS (RSV) RNA: Not detected Normal [facility] Comment on above: Performed By: #### C VFLRS ####[facility] LABCLIA [id number] [address] STATES OF [facility] Abdomen/Pelvis without Conto n 08-04-2024 Abdomen/Pelvis without Cont [facility] [address] [place] [id number] Abdomen/Pelvis without Cont MR#: [id number] Acct: [id number] Name: ANTONIA CORONADO Rep #: [id number] : 1975 F 48 From: Alexy narayan MD PCP: Dr. Fransisco Angel MD Status: REG ER Study: Abdomen/Pelvis without Cont Date of Exam: 02/20 Exam# [id number] Ordering Dr: Wai Donnelly DO [id number] STUDY: CT ABDOMEN AND PELVIS WITHOUT CONTRAST [...] 8:21 EST Reading Location ID and State: [facility] / [place] , Service support , CC: Dr. Wai Donnelly DO; Dr. Fransisco Angel MD Agency Cashier: Signed Normal [facility] Basic Metabolic Profile (BMP )on 08-04-2024 BUN/CRE 16.1 RATIO Normal 10-20 [facility] Comment on above: Performed By: #### L 500.2500, L700.6800, L100.0100 #### [facility] Laboratory [facility] [address] [place], [address] CA,Total 9.1 mg/dL Normal 8.5-10.1 [facility] Comment on above: Performed By: #### L 500.2500, L700.6800, L100.0100 #### [facility] Laboratory [address] [place], [address] Chloride [Moles/Vol] 106 mmol/L Normal 98-107 [facility] Comment on above: Performed By: #### L 500.2500, L700.6800, L100.0100 #### [facility] [address] [place], [address] CO2 [Moles/Vol] 28.0 mmol/L Normal 21.0-32.0 [facility] Comment on above: Performed By: #### L 500.2500, L700.6800, L100.0100 #### [facility] [address] [place], [address] Creatinine [Mass/Vol] 0.62 mg/dL Normal 0.55-1.02 [facility] Comment on above: Result Comment: The validity of the calculated GFR GFRAA in patients over 70 years has not been determined. Clinical correlation is essential. Performed By: #### L 500.2500, L700.6800, L100.0100 #### [facility] [address] [place], [address] ECRCL 158.95 ml/min Normal [facility] Comment on above: Performed By: #### L 500.2500, L700.6800, L100.0100 #### [facility] [address] [place], [address] EST GFR - AA 132 mL/min Normal >60 [facility] Comment on above: Result Comment: Afri can Nauruan GFR Calc Performed By: #### L 500.2500, L700.6800, L100.0100 #### [facility] [address] [place], [address] GAP 5 Normal 5-15 [facility] Comment on above: Performed By: #### L 500.2500, L700.6800, L100.0100 #### [facility] [address] [place], [address] GFR/1.73 sq M.predicted among non-blacks MDRD (S/P/Bld) [Vol rate/Area] 109 mL/min/{1.73_m2} Normal >60 [facility] Comment on above: Result Comment: Non- GFR Calc Performed By: #### L 500.2500, L700.6800, L100.0100 #### [facility] [address] [place], [address] Glucose [Mass/Vol] 104 mg/dL Normal 74-106 [facility] Comment on above: Result Comment: Fast ing Glucose result from 100 to 125 mg/dL suggests IMPAIRED HOMEOSTASIS per A.D.A. criteria. Performed By: #### L 500.2500, L700.6800, L100.0100 #### [facility] [address] [place], [address] Potassium [Moles/Vol] 4.4 mmol/L Normal 3.5-5.1 [facility] Comment on above: Result Comment: Mode rate Hemolysis, Result may be falsely increased. Performed By: #### L 500.2500, L700.6800, L100.0100 #### [facility] [address] [place], [address] Sodium [Moles/Vol] 139 mmol/L Normal 136-145 [facility] Comment on above: Performed By: #### L 500.2500, L700.6800, L100.0100 #### [facility] [address] [place], [address] Urea nitrogen [Mass/Vol] 10 mg/dL Normal 7-18 [facility] Comment on above: Performed By: #### L 500.2500, L700.6800, L100.0100 #### [facility] [address] [place], [address] CBC W/Diff, Automatedon 11-0 5-2024 Absolute Lymph 4.03 X10 3/uL Normal 0.83-4.51 [facility] Comment on above: Performed By: #### L 500.2500, L700.6800, L100.0100 #### [facility] [address] [place], [address] Absolute Neut 3.5 X10 3/uL Normal 2.0-7.7 [facility] Comment on above: Performed By: #### L 500.2500, L700.6800, L100.0100 #### [facility] [address] [place], [address] Basophils/100 WBC (Bld) 0.6 % Normal 0-[address] [facility] Comment on above: Performed By: #### L 500.2500, L700.6800, L100.0100 #### [facility] [address] [place], [address] Eosinophils/100 WBC (Bld) 1.9 % Normal 0-5 [facility] Comment on above: Performed By: #### L 500.2500, L700.6800, L100.0100 #### [facility] [address] [place], [address] Erythrocyte distribution width (RBC) [Ratio] 13.5 % Normal 11.6-14.6 [facility] Comment on above: Performed By: #### L 500.2500, L700.6800, L100.0100 #### [facility] [address] [place], [address] Hematocrit (Bld) [Volume fraction] 39.3 % Normal 37-47 [facility] Comment on above: Performed By: #### L 500.2500, L700.6800, L100.0100 #### [facility] [address] [place], [address] Hemoglobin (Bld) [Mass/Vol] 13.0 g/dL Normal 12.0-15.0 [facility] Comment on above: Performed By: #### L 500.2500, L700.6800, L100.0100 #### [facility] [address] [place], [address] IG% 0.400 Normal 0.0-0.9 [facility] Comment on above: Result Comment: IG% - Immature Granulocytes (promyelocytes, myelocytes and metamyelocytes) > 1% indicates that a LEFT SHIFT is Present. Performed By: #### L 500.2500, L700.6800, L100.0100 #### [facility] [address] [place], [address] Lymphocytes/100 WBC (Bld) 48.0 % High 19-41 [facility] Comment on above: Performed By: #### L 500.2500, L700.6800, L100.0100 #### [facility] [address] [place], [address] MCH (RBC) [Entitic mass] 29.0 pg Normal 27.0-32.0 [facility] Comment on above: Performed By: #### L 500.2500, L700.6800, L100.0100 #### [facility] [address] [place], [address] MCHC (RBC) [Mass/Vol] 33.1 g/dL Normal 32-36 [facility] Comment on above: Performed By: #### L 500.2500, L700.6800, L100.0100 #### [facility] [address] [place], [address] MCV (RBC) [Entitic vol] 87.5 fL Normal 81-[address] [facility] Comment on above: Performed By: #### L 500.2500, L700.6800, L100.0100 #### [facility] [address] [place], [address] Monocytes/100 WBC (Bld) 7.4 % Normal 0-10 [facility] Comment on above: Performed By: #### L 500.2500, L700.6800, L100.0100 #### [facility] [address] [place], [address] Neutrophils/100 WBC (Bld) 41.7 % Low 47-70 [facility] Comment on above: Performed By: #### L 500.2500, L700.6800, L100.0100 #### [facility] [address] [place], [address] Nucleated RBC (Bld) [#/Vol] 0 10*3/uL Normal 0-5 [facility] Comment on above: Performed By: #### L 500.2500, L700.6800, L100.0100 #### [facility] [address] [place], [address] Platelet mean volume (Bld) [Entitic vol] 8.9 fL Normal 6.2-12.0 [facility] Comment on above: Performed By: #### L 500.2500, L700.6800, L100.0100 #### [facility] [address] [place], [address] Platelets (Bld) [#/Vol] 362 10*3/uL Normal 150-450 [facility] Comment on above: Performed By: #### L 500.2500, L700.6800, L100.0100 #### [facility] [address] [place], [address] RBC (Bld) [#/Vol] 4.49 10*6/uL Normal 4.2-5.4 [facility] Comment on above: Performed By: #### L 500.2500, L700.6800, L100.0100 #### [facility] [address] [place], [address] RDW SD 43.0 fl Normal 35.1-43.9 [facility] Comment on above: Performed By: #### L 500.2500, L700.6800, L100.0100 #### [facility] [address] [place], [address] WBC (Bld) [#/Vol] 8.4 10*3/uL Normal 4.4-11.0 [facility] Comment on above: Performed By: #### L 500.2500, L700.6800, L100.0100 #### [facility] [address] [place], [address] Emergency Department Summary on 08-04-[address] [facility] Records Department [address] [place] [address] Emergency Department Summary 08/04/24 MR#: [id number] Acct: [id number] Name: ANTONIA CORONADO Rep #: [id number] : 1975 48 From: Wai Fitch PCP: [...] generated w (more content not included)... Normal [facility] ,Serum,hCG Quali.on 08-04-2024 HCG, SERUM QUAL Negative Normal [facility] Comment on above: Performed By: #### L 500.2500, L700.6800, L100.0100 #### [facility] [address] [place], [place], [id number] Urinalysis, Completeon 08-04 BACTERIA 0 SEEN Normal None Seen [facility] Comment on above: Order Comment: CLEAN CATCH Performed By: #### L 400.0001 #### [facility] [address] [place], [address] EPI,SQUAMOUS 0 SEEN Normal 5-10 [facility] Comment on above: Order Comment: CLEAN CATCH Performed By: #### L 400.0001 #### [facility] [address] [place] [id number] Mucus Ql (Urine sed) 0 SEEN Normal [facility] Comment on above: Order Comment: CLEAN CATCH Performed By: #### L 400.0001 #### [facility] [address] [place], [address] RBC 0 SEEN Normal 0-5 [facility] Comment on above: Order Comment: CLEAN CATCH Performed By: #### L 400.0001 #### [facility] [address] [place], [address] WBC 0 SEEN Normal 0-5 [facility] Comment on above: Order Comment: CLEAN CATCH Performed By: #### L 400.0001 #### [facility] [address] [place], [place], [address] CNOVon 05-01-2024 CNOV Office Visit (UCWSTR ) ANTONIA CORONADO ([id number]) 1975 F Date Time Provider Department 05/01/24 6:15 PM ZOE RAYA [facility] During your visit today, we recorded [...] history is provided by the patient. No photographer's model was used. Sore Throat This is a [...] kg/m? Phys (more content not included)... Normal [facility] STREP A MOLECULAR (POC)on Procedural Control Valid [facility] Strep A (POCT) Negative Negative [facility] Absolute lymphocyte countOrd ered By: Michaelle Mock on 12-25-2023 Lymphocytes Auto (Unsp spec) [#/Vol] 3.46 10*3/uL 0.83-4.51 [facility] Automated lymphocyte count a s percentage of total leukocytesOrdered By: [facility] Mock on 12-25-2023 Lymphocytes/100 WBC Auto (Unsp spec) 31.2 % 19-41 [facility] Basophil percentageOrdered B y: Michaelle Florenceaurora on 12-25-2023 Basophils/100 WBC (Bld) 0.4 % 0-[address] [facility] Chloride [Moles/Vol] 109 mmol/L 98-107 [facility] Eosinophils/100 WBC (Bld) 0.8 % 0-5 [facility] Glucose [Mass/Vol] 102 mg/dL 74-106 [facility] Comment on above: Fasting Glucose resu lt from 100 to 125 mg/dL suggests IMPAIRED HOMEOSTASIS per A.D.A. criteria. Hemoglobin (Bld) [Mass/Vol] 11.7 g/dL 12.0-15.0 [facility] Monocytes/100 WBC (Bld) 6.6 % 0-[address] [facility] Neutrophils (Bld) [#/Vol] 6.7 10*3/uL 2.0-7.7 [facility] Neutrophils/100 WBC (Bld) 60.6 % 47-70 [facility] Potassium [Moles/Vol] 3.4 mmol/L 3.5-5.1 [facility] Sodium [Moles/Vol] 141 mmol/L 136-145 [facility] WBC (Bld) [#/Vol] 11.1 10*3/uL 4.4-11.0 [facility] Determination of erythrocyte mean corpuscular volume (MCV)Ordered By: Michaelle Mock on 12-25-2023 MCV (RBC) [Entitic vol] 88.9 fL 81-[address] [facility] Erythrocyte distribution wid th ratioOrdered By: [facility] on 12-25-2023 Erythrocyte distribution width (RBC) [Ratio] 13.2 % 11.6-14.6 [facility] Erythrocyte distribution wid th standard deviationOrdered By: [facility] Mock on 12-25-2023 Erythrocyte distribution width (RBC) [Entitic vol] 42.9 fL 35.1-43.9 [facility] Hematocrit Auto (Bld) [Volum e fraction]Ordered By: Michaelle Mock on 12-25-2023 Hematocrit (Bld) [Volume fraction] 36.0 % 37-47 [facility] Immature granulocytes/100 WB C Auto (Bld)Ordered By: Michaelle Mock on 12-25-2023 Immature granulocytes/100 WBC (Bld) 0.400 % 0.0-0.9 [facility] Comment on above: IG% - Immature Granu locytes (promyelocytes, myelocytes and metamyelocytes) > 1% indicates that a LEFT SHIFT is Present. Laboratory - Chemistry and C hemistry - challengeOrdered By: Michaelle Mock on 12-25-2023 CO2 [Moles/Vol] 28.0 mmol/L 21.0-32.0 [facility] Urea nitrogen/Creatinine [Mass ratio] 11.6 mg/mg 10-20 [facility] Laboratory - Hematology and Cell countsOrdered By: Michaelle Mock on 12-25-2023 MCH (RBC) [Entitic mass] 28.9 pg 27.0-32.0 [facility] MCHC (RBC) [Mass/Vol] 32.5 g/dL 32-36 [facility] Nucleated RBC/100 WBC (Bld) [Ratio] 0 % 0-5 [facility] Platelet mean volume (Bld) [Entitic vol] 8.9 fL 6.2-12.0 [facility] Platelets (Bld) [#/Vol] 352 10*3/uL 150-450 [facility] No Panel InformationOrdered By: Michaelle Mock on 12-25-2023 D-Dimer Quantitative (PE/DVT) 0.48 FEU/ug/m 0.27-0.49 [facility] Comment on above: NORMAL D-Dimer level (<0.50) indicates no DVT or PE. Estimated Creatinine Clearance Calc 146.38 ml/min [facility] Estimated GFR (MDRD) Amer 118 mL/min >60 [facility] Comment on above: GFR Calc Estimated GFR (MDRD) Non-Af Amer 97 mL/min >60 [facility] Comment on above: Non- GFR Calc RBC Auto (Bld) [#/Vol]Ordere d By: Michaelle Mock on 12-25-2023 RBC (Bld) [#/Vol] 4.05 10*6/uL 4.2-5.4 [facility] Serum or plasma calcium shruthi urement (mass/volume)Ordered By: Michaelle Mock on 12-25-2023 Calcium [Mass/Vol] 9.0 mg/dL 8.5-10.1 [facility] Serum or plasma cardiac trop onin I panel by high sensitivity methodOrdered By: [facility] Mock on 12-25-2023 Tropinin I.cardiac panel High sensitivity method 4 pg/mL 3.0-54.0 [facility] Comment on above: Please Note: New [place]ion[place] t Units and Gender Specific Reference Ranges. For more information see Policy Stat Procedure [place] High Sensitivity Troponin (TNIH) and attachments. Serum or plasma creatinine m easurement (mass/volume)Ordered By: [facility] Mock on 12-25-2023 Creatinine [Mass/Vol] 0.69 mg/dL 0.55-1.02 [facility] Comment on above: The validity of the calculated GFR & GFRAA in patients over 70 years has not been determined. Clinical correlation is essential. Serum or plasma urea nitroge n measurement (mass/volume)Ordered By: [facility] Mock on 12-25-2023 Urea nitrogen [Mass/Vol] 8 mg/dL 7-18 [facility] Thin prep Papanicolaou smear with manual screeningOrdered By: [facility] on 12-25-2023 Thin prep Papanicolaou smear with manual screening 4 5-15 [facility] XR CHEST 2V FRONTAL/LATon [facility] XR Chest PA and Lateralon IMPRESSION: No acute radiographic abnormality. Agency Cashier: PSCB Transcribe Date/Time: Jun 12 2023 10:50A Dictated by : RENA CAMP MD This examination was interpreted and the report reviewed and electronically signed by: RENA CAMP MD on Jun 12 2023 10:50AM [facility] DIVISION OF RADIOLOGY * * *Final Report* [...] degenerative changes. DIVISION OF RADIOLOGY Provider, Julia [facility] - 06/12/2023 * * *Final Report* * [...] changes. IMPRESSION IMPRESSION: No acute radiographic abnormality. 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 Agency Cashier: [facility] Transcribe Date/Time: Jan 29 2023 10:20A Dictated [...] dislocation DIVISION OF RADIOLOGY Provider, Julia ramirez Brick - 01/29/2023 * * *Final Report* * [...] IMPRESSION: 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 Agency Cashier: PSCB Transcribe Date/Time: Jan 29 2023 10:20A Dictated by : CLAIRE VALENCIA MD This examination was interpreted and the report reviewed and electronically signed by: CLAIRE VALENCIA MD on Jan 29 2023 10:21AM EST [facility] XR Knee - right 4 ViewsOrder ed By: Ccf Provider on 01-29-2023 [facility] XR Knee - right 4 Viewson Radiology Study observation (narrative) [facility] MRI LIVER WO/W IVCONon 12-10 Radiology Result ACTIONABLE Abnormal [facility] RUFINO SCREENINGon 11-15-2022 [facility] Hepatic function 2000 panelo n 11-14-2022 Albumin [Mass/Vol] 4.4 g/dL 3.9 - 4.9 g/dL [facility] ALP [Catalytic activity/Vol] 80 U/L 34 - 123 U/L [facility] ALT [Catalytic activity/Vol] 14 U/L 7 - 38 U/L [facility] AST [Catalytic activity/Vol] 20 U/L 13 - 35 U/L [facility] Bilirubin [Mass/Vol] 0.3 mg/dL 0.2 - 1 .3 mg/dL [facility] Bilirubin.conjugated [Mass/Vol] <0.2 mg/dL [facility] Protein [Mass/Vol] 7.5 g/dL 6.3 - 8.0 g/dL [facility] CNOVon 11-13-2022 CNOV Office Visit (ALEXI ) ANTONIA CORONADO ([id number]) 1975 F Date Time Provider Department 11/13/22 1:45 PM LYNDON VELASQUEZ During your visit today, we recorded the following information about you: Blood pressure Weight Height 141/81 124.7 kg 1.702 m Lyndon Velasquez MD 11/13/2022 2:12 PM Signed [facility] ESTABLISHED PATIENT FOLLOW-UP NOTE PATIENT: [...] drinks pe (more content not included)... Normal [facility] CT UROGRAM WO/W IVCONon -0 [facility] CNPNon 10-28-2022 CNPN Telephone (AGHOSP) ANTONIA CORONADO ([id number]) 1975 F Date Time Provider Department 10/28/22 [...] [Z86.79] 05/19/2012 03/23/2022 Advanced maternal age in [[id number]] 05/19/2012 12/15/2021 Patient requested diagnostic testing [Z01.89] [...] Encounter Status:Closed by LYNDON VELASQUEZ on 10/28/22 [facility] [place] 10-26-2022 CNPN Telephone ([facility]) ANTONIA CORONADO ([id number]) 1975 F Date Time Provider Department 10/26/22 [...] - Vomiting Date Reviewed: 10/23/2022 Reviewed by: Lnydon Velasquez MD - Fully Assessed Reason for [...] [Z86.79] 05/19/2012 03/23/2022 Advanced maternal age in [[id number]] 05/19/2012 12/15/2021 Patient requested diagnostic testing [Z01.89] [...] Encounter Status:Closed by LYNDON VELASQUEZ on 1/27/23 [facility] Bacteria Ur Culton 3 Bacteria identified Cx [...] , Intermediate >32 , Resistant >64 Abnormal [facility] Comment on above: Performed By: #### 6 30-4 #### [facility] [id number] [address] OF [facility] CNOVon 10-23-2022 CNOV Office Visit (UROLAE ) ANTONIA CORONADO ([id number]) 1975 F Date Time Provider Department 10/23/22 11:00 AM LYNDON VELASQUEZ During your visit today, we recorded the following information about you: Blood pressure Weight Height 144/90 124.7 kg 1.702 m Lyndon Velasquez MD 10/23/2022 11:24 AM Signed [facility] NEW CONSULT HISTORY AND PHYSICAL [...] ALLERGIES A (more content not included)... Normal [facility] UA DIP, URINE (POC)on 2022 BILIRUBIN UA (POCT) Negative Negative [facility] CLARITY UA (POCT) Clear [facility] COLOR UA (POCT) Yellow [facility] GLUCOSE UA (POCT) Negative Negative mg/dL [facility] HEMOGLOBIN/BLOOD UA (POCT) Moderate Abnormal Negative [facility] KETONE UA (POCT) Negative Negative mg/dL [facility] LEUKOCYTES UA (POCT) Small Abnormal Negative [facility] NITRITE UA (POCT) Negative Negative [facility] PH UA (POCT) 6.5 4.5 - 8.0 [facility] Protein Ql (U) Negative Negative mg/dL [facility] SPECIFIC GRAVITY UA (POCT) 1.025 1.005 - 1.030 [facility] UROBILINOGEN UA (POCT) 0.2 E.U./dL Maria Del Carmen l E.U./dL [facility] US KIDNEY/BLADDERon 10-12-19 [facility] URINE CULTUREon 10-04-2022 Bacteria identified Cx Nom (U) 10,000 -<50,000 CFU/ml Normal urogenital eliazar [facility] UA DIP, URINE (POC)on 2022 BILIRUBIN UA (POCT) Negative Negative [facility] CLARITY UA (POCT) Slightly Cloudy [facility] COLOR UA (POCT) Yellow [facility] GLUCOSE UA (POCT) Negative Negative mg/dL [facility] HEMOGLOBIN/BLOOD UA (POCT) Negative Negative [facility] KETONE UA (POCT) Negative Negative mg/dL [facility] LEUKOCYTES UA (POCT) Small Abnormal Negative [facility] NITRITE UA (POCT) Negative Negative [facility] PH UA (POCT) 7.0 4.5 - 8.0 [facility] Protein Ql (U) Negative Negative mg/dL [facility] SPECIFIC GRAVITY UA (POCT) 1.020 1.005 - 1.030 [facility] UROBILINOGEN UA (POCT) 0.2 E.U./dL Maria Del Carmen l E.U./dL [facility] STREP A MOLECULAR (POC)on Procedural Control Valid [facility] Strep A (POCT) Negative Negative [facility] C-REACTIVE PROTEIN (CRP)on 0 06-13-2022 CRP [Mass/Vol] 0.6 mg/dL <0.9 mg/dL [facility] Erythrocyte sedimentation ra cookie 06-01-2022 ESR (Bld) [Velocity] 18 mm/h 0-30 [facility] Work Phone: Serum or plasma C reactive p rotein measurement (mass/volume)on 06-01-2022 CRP [Mass/Vol] 19.90 mg/L 0.0-3.0 [facility] Work Phone: Comment on above: C-Reactive Protein ( CRP) provides useful information for thediagnosis, therapy and monitoring of inflammatory processesand associated diseases. For the evaluation of Relative Riskfor Cardiovascular Disease, a High Sensitivity CRP (HSCRP)should be ordered. Basic metabolic 2000 panelon 05-22-2022 Anion gap [Moles/Vol] 13 mmol/L 9 - 18 mmol/L [facility] Calcium [Mass/Vol] 9.5 mg/dL 8.5 - 10. 2 mg/dL [facility] Chloride [Moles/Vol] 104 mmol/L 97 - 10 5 mmol/L [facility] CO2 [Moles/Vol] 24 mmol/L 22 - 30 mmol/L [facility] Creatinine [Mass/Vol] 0.66 mg/dL 0.58 - 0.96 mg/dL [facility] Estimated Glomerular Filtration Rate 110 mL/min/1.73m >=60 mL/min/1.73m [facility] Glucose [Mass/Vol] 100 mg/dL High 74 - 99 mg/dL [facility] Potassium [Moles/Vol] 4.1 mmol/L 3.7 - 5.1 mmol/L [facility] Sodium [Moles/Vol] 141 mmol/L 136 - 144 mmol/L [facility] Urea nitrogen [Mass/Vol] 8 mg/dL 7 - 21 mg/dL [facility] CBC W Auto Differential pane l (Bld)on 05-22-2022 Abs Immature Gran 0.03 k/uL <0.10 k/uL [facility] Basophils (Bld) [#/Vol] 0.04 10*3/uL <0.11 k/uL [facility] Basophils/100 WBC (Bld) 0.4 % [facility] Differential cell count method Nom (Bld) Auto [facility] Eosinophils (Bld) [#/Vol] 0.11 10*3/uL <0.46 k/uL [facility] Eosinophils/100 WBC (Bld) 1.0 % [facility] Erythrocyte distribution width (RBC) [Ratio] 13.2 % 11.5 - 15.0 % [facility] Hematocrit (Bld) [Volume fraction] 39.0 % 36.0 - 46.0 % [facility] Hemoglobin (Bld) [Mass/Vol] 12.9 g/dL 11.5 - 15.5 g/dL [facility] Immature Gran % 0.3 % [facility] Lymphocytes (Bld) [#/Vol] 4.11 10*3/uL High 1.00 - 4.00 k/uL [facility] Lymphocytes/100 WBC (Bld) 36.9 % [facility] MCH (RBC) [Entitic mass] 29.1 pg 26.0 - 34.0 pg [facility] MCHC (RBC) [Mass/Vol] 33.1 g/dL 30.5 - 36.0 g/dL [facility] MCV (RBC) [Entitic vol] 87.8 fL 80.0 - 100.0 fL [facility] Monocytes (Bld) [#/Vol] 0.78 10*3/uL <0.87 k/uL [facility] Monocytes/100 WBC (Bld) 7.0 % [facility] Neutrophils (Bld) [#/Vol] 6.07 10*3/uL 1.45 - 7.50 k/uL [facility] Neutrophils/100 WBC (Bld) 54.4 % [facility] Nucleated RBC (Bld) [#/Vol] <0.01 k/uL [facility] Nucleated RBC/100 WBC (Bld) [Ratio] 0.0 /100 WBC [facility] Platelet mean volume (Bld) [Entitic vol] 8.8 fL Low 9.0 - 12.7 fL [facility] Platelets (Bld) [#/Vol] 388 10*3/uL 150 - 400 k/uL [facility] RBC (Bld) [#/Vol] 4.44 10*6/uL 3.90 - 5.2 0 m/uL [facility] WBC (Bld) [#/Vol] 11.14 10*3/uL High 3.70 - 11 .00 k/uL [facility] CBC panel Auto (Bld)on 03-24 Erythrocyte distribution width (RBC) [Ratio] 13.1 % 11.5 - 15.0 % [facility] Hematocrit (Bld) [Volume fraction] 40.3 % 36.0 - 46.0 % [facility] Hemoglobin (Bld) [Mass/Vol] 12.9 g/dL 11.5 - 15.5 g/dL [facility] MCH (RBC) [Entitic mass] 28.9 pg 26.0 - 34.0 pg [facility] MCHC (RBC) [Mass/Vol] 32.0 g/dL 30.5 - 36.0 g/dL [facility] MCV (RBC) [Entitic vol] 90.2 fL 80.0 - 100.0 fL [facility] Nucleated RBC (Bld) [#/Vol] 10*3/uL <0.01 k/uL [facility] Platelet mean volume (Bld) [Entitic vol] 8.9 fL Low 9.0 - 12.7 fL [facility] Platelets (Bld) [#/Vol] 414 10*3/uL High 150 - 400 k/uL [facility] RBC (Bld) [#/Vol] 4.47 10*6/uL 3.90 - 5.2 0 m/uL [facility] WBC (Bld) [#/Vol] 9.14 10*3/uL 3.70 - 11. 00 k/uL [facility] Comprehensive metabolic 2000 panelon 03-24-2022 Albumin [Mass/Vol] 4.4 g/dL 3.9 - 4.9 g/dL [facility] ALP [Catalytic activity/Vol] 75 U/L 34 - 123 U/L [facility] ALT [Catalytic activity/Vol] 13 U/L 7 - 38 U/L [facility] Anion gap [Moles/Vol] 11 mmol/L 9 - 18 mmol/L [facility] AST [Catalytic activity/Vol] 18 U/L 13 - 35 U/L [facility] Bilirubin [Mass/Vol] 0.4 mg/dL 0.2 - 1 .3 mg/dL [facility] Calcium [Mass/Vol] 9.6 mg/dL 8.5 - 10. 2 mg/dL [facility] Chloride [Moles/Vol] 104 mmol/L 97 - 10 5 mmol/L [facility] CO2 [Moles/Vol] 23 mmol/L 22 - 30 mmol/L [facility] Creatinine [Mass/Vol] 0.76 mg/dL 0.58 - 0.96 mg/dL [facility] Estimated Glomerular Filtration Rate 99 mL/min/1.73m >=60 mL/min/1.73m [facility] Glucose [Mass/Vol] 91 mg/dL 74 - 99 mg/dL [facility] Potassium [Moles/Vol] 4.4 mmol/L 3.7 - 5.1 mmol/L [facility] Protein [Mass/Vol] 7.4 g/dL 6.3 - 8.0 g/dL [facility] Sodium [Moles/Vol] 138 mmol/L 136 - 144 mmol/L [facility] Urea nitrogen [Mass/Vol] 9 mg/dL 7 - 21 mg/dL [facility] Lipid 1996 panelon Cholesterol [Mass/Vol] 129 mg/dL <200 mg/dL [facility] Cholesterol in HDL [Mass/Vol] 42 mg/dL >39 mg/dL [facility] Cholesterol in LDL [Mass/Vol] 68 mg/dL <100 mg/dL [facility] Cholesterol in LDL/Cholesterol in HDL [Mass ratio] 1.62 {ratio} <2.54 [facility] Cholesterol in VLDL [Mass/Vol] 19 mg/dL <30 mg/dL [facility] Cholesterol non HDL [Mass/Vol] 87 mg/dL <130 mg/dL [facility] Cholesterol.total/Hans sterol in HDL [Mass ratio] 3.07 {ratio} <5.10 [facility] Fasting Time 12 hrs [facility] Triglyceride [Mass/Vol] 93 mg/dL <150 mg/dL [facility] T4 FREE/FREE THYROXon 2021 Free T4 [Mass/Vol] 1.3 ng/dL 0.9 - 1.7 ng/dL [facility] TSH BLDon 03-24-2022 TSH Qn 1.270 m[IU]/L 0.270 - 4.200 mIU/L [facility] XR CHEST 2V FRONTAL/LATon [facility] XR Chest PA and Lateralon IMPRESSION: No acute radiographic abnormality. Agency Cashier: [facility] Transcribe Date/Time: Feb 19 2022 2:47P [...] degenerative changes. [id number] E_DIVISION OF RADIOLOGY Provider, [facility] - 02/19/2022 * * *Final Report* * [...] changes. IMPRESSION IMPRESSION: No acute radiographic abnormality. 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 Phone: [facility] 03-05-2025 15:48-0400 Body mass index (BMI) [Ratio] 47.78 kg/m2 Juana Anthony RECENTERER.BUILDING SUPERINTENDENT Work Phone: [facility] 03-05-2025 15:48-0400 Body weight 134.26 kg Juana Saginaw RECENTERER.BUILDING SUPERINTENDENT Work Phone: [facility] 03-05-2025 15:48-0400 Diastolic blood pressure 82 mm[Hg] Juana Sagin[place] RECENTERER.BUILDING SUPERINTENDENT Work Phone: [facility] 03-05-2025 15:48-0400 Systolic blood pressure 124 mm[Hg] Juana Sagin[place] RECENTERER.BUILDING SUPERINTENDENT Work Phone: [facility] 02-23-2025 14:56-0400 Diastolic blood pressure 84 mm[Hg] Barbara Sonny RECENTERER.BUILDING SUPERINTENDENT Work Phone: [facility] 02-23-2025 14:56-0400 Systolic blood pressure 122 mm[Hg] Barbara Sonny RECENTERER.BUILDING SUPERINTENDENT Work Phone: [facility] 02-23-2025 14:42-0400 Body mass index (BMI) [Ratio] 47.13 kg/m2 Barbara Sonny RECENTERER.BUILDING SUPERINTENDENT Work Phone: [facility] 02-23-2025 14:42-0400 Body weight 136.5 kg Barbara Sonny RECENTERER.BUILDING SUPERINTENDENT Work Phone: [facility] 02-23-2025 14:42-0400 Heart rate 94 /min Barbara WangSonny RECENTERER.BUILDING SUPERINTENDENT Work Phone: [facility] 02-23-2025 14:42-0400 Respiratory rate 16 /min Barbara WangSonny RECENTERER.BUILDING SUPERINTENDENT Work Phone: [facility] 02-23-2025 14:42-0400 SaO2% (BldA) [Mass fraction] 96 % Barbara WangSonny RECENTERER.BUILDING SUPERINTENDENT Work Phone: [facility] 01-25-2025 13:24-0400 Diastolic blood pressure 94 mm[Hg] Dr. Fransisco Angel MD Work Phone: 9(563)203-527535 [place] [address] 01-25-2025 13:24-0400 Heart rate 87 /min Dr. Fransisco Angel MD Work Phone: 7(104)059-207076 [place] [address] 01-25-2025 13:24-0400 Respiratory rate 16 /min Dr. Fransisco Angel MD Work Phone: 9(719)544-672556 [place] [address] 01-25-2025 13:24-0400 SaO2% (BldA) [Mass fraction] 99 % Dr. Fransisco Angel MD Work Phone: 0(561)097-845756 [place] [address] 01-25-2025 13:24-0400 Systolic blood pressure 130 mm[Hg] Dr. Fransisco Angel MD Work Phone: 9(448)129-806156 [place] [address] 01-25-2025 12:24-0400 Body height 170.[address] Fransisco Angel MD Work Phone: 7(988)759-862456 [place] [address] 01-25-2025 12:24-0400 Body mass index (BMI) [Ratio] 47.7 kg/m2 Dr. Fransisco Angel MD Work Phone: 7(927)113-737756 [place] [address] 01-25-2025 12:24-0400 Body temperature 97.8 [degF] Dr. Fransisco Angel MD Work Phone: 9(495)103-924576 [place] [address] 01-25-2025 12:24-0400 Body weight 138.[address] Fransisco Angel MD Work Phone: 1(414)226-406176 [place] [address] 01-01-2025 07:51-0400 Body mass index (BMI) [Ratio] 46.96 kg/m2 Barbara Coronado APRN.BUILDING SUPERINTENDENT Work Phone: [facility] 01-01-2025 07:51-0400 Body weight 136 kg Barbara Coronado RECENTERER.BUILDING SUPERINTENDENT Work Phone: [facility] 01-01-2025 07:51-0400 Diastolic blood pressure 78 mm[Hg] Barbara Coronado APRN.BUILDING SUPERINTENDENT Work Phone: [facility] 01-01-2025 07:51-0400 Heart rate 84 /min Barbara Sonny RECENTERER.BUILDING SUPERINTENDENT Work Phone: [facility] 01-01-2025 07:51-0400 Respiratory rate 12 /min Barbara ColbertSonny RECENTERER.BUILDING SUPERINTENDENT Work Phone: [facility] 01-01-2025 07:51-0400 SaO2% (BldA) [Mass fraction] 98 % Barbara ColbertSonny RECENTERER.BUILDING SUPERINTENDENT Work Phone: [facility] 01-01-2025 07:51-0400 Systolic blood pressure 122 mm[Hg] Barbara Coroando RECENTERER.BUILDING SUPERINTENDENT Work Phone: 0(727)285-927734 [place] [address] 10-01-2024 10:20-0500 Body temperature 97.9 [degF] Dr. Fransisco Angel MD Work Phone: 9(100)388-450456 [place] [address] 10-01-2024 10:20-0500 Diastolic blood pressure 77 mm[Hg] Dr. Fransisco Angel MD Work Phone: 9(781)358-389956 [place] [address] 10-01-2024 10:20-0500 Heart rate 79 /min Dr. Fransisco Angel MD Work Phone: 6(330)619-044776 [place] [address] 10-01-2024 10:20-0500 Respiratory rate 16 /min Dr. Fransisco Angel MD Work Phone: 3(268)561-879056 [place] [address] 10-01-2024 10:20-0500 SaO2% (BldA) [Mass fraction] 99 % Dr. Fransisco Angel MD Work Phone: 8(187)[phone] [place] [address] 10-01-2024 10:20-0500 Systolic blood pressure 146 mm[Hg] Dr. Fransisco Angel MD Work Phone: 9(298)282-581456 [place] [address] 10-01-2024 08:57-0500 Body mass index (BMI) [Ratio] 45.9 kg/m2 Dr. Fransisco Angel MD Work Phone: 2(417)157-877276 [place] [address] 10-01-2024 08:57-0500 Body weight 132.[address] Fransisco Angel MD Work Phone: [facility] 09-07-2024 15:40-0500 Body mass index (BMI) [Ratio] 45.54 kg/m2 Zoe Raya RECENTERER.BUILDING SUPERINTENDENT Work Phone: [facility] 09-07-2024 15:40-0500 Body temperature 98.49 [degF] Zoe Raya RECENTERER.BUILDING SUPERINTENDENT Work Phone: [facility] 09-07-2024 15:40-0500 Body weight 131.9 kg Zoe Raya RECENTERER.BUILDING SUPERINTENDENT Work Phone: [facility] 09-07-2024 15:40-0500 Diastolic blood pressure 70 mm[Hg] Zoe Raya RECENTERER.BUILDING SUPERINTENDENT Work Phone: [facility] 09-07-2024 15:40-0500 Heart rate 73 /min Zoe Raya RECENTERER.BUILDING SUPERINTENDENT Work Phone: [facility] 09-07-2024 15:40-0500 Respiratory rate 20 /min Zoe Raya RECENTERER.BUILDING SUPERINTENDENT Work Phone: [facility] 09-07-2024 15:40-0500 SaO2% (BldA) [Mass fraction] 99 % Zoe Raya RECENTERER.BUILDING SUPERINTENDENT Work Phone: [facility] 09-07-2024 15:40-0500 Systolic blood pressure 120 mm[Hg] Zoe Raya RECENTERER.BUILDING SUPERINTENDENT Work Phone: [facility] 08-24-2024 14:27-0500 Body height 170.2 cm Barbara Coronado RECENTERER.BUILDING SUPERINTENDENT Work Phone: [facility] 08-24-2024 14:27-0500 Body mass index (BMI) [Ratio] 45.09 kg/m2 Barbara Sonny RECENTERER.BUILDING SUPERINTENDENT Work Phone: [facility] 08-24-2024 14:27-0500 Body temperature 98.6 [degF] Barbara WangSonny RECENTERER.BUILDING SUPERINTENDENT Work Phone: [facility] 08-24-2024 14:27-0500 Body weight 130.6 kg Barbara Sonny RECENTERER.BUILDING SUPERINTENDENT Work Phone: [facility] 08-24-2024 14:27-0500 Diastolic blood pressure 78 mm[Hg] Barbara Sonny RECENTERER.BUILDING SUPERINTENDENT Work Phone: [facility] 08-24-2024 14:27-0500 Heart rate 91 /min Barbara Sonny RECENTERER.BUILDING SUPERINTENDENT Work Phone: [facility] 08-24-2024 14:27-0500 SaO2% (BldA) [Mass fraction] 97 % [facility].BUILDING SUPERINTENDENT Work Phone: [facility] 08-24-2024 14:27-0500 Systolic blood pressure 112 mm[Hg] Barbara Sonny RECENTERER.BUILDING SUPERINTENDENT Work Phone: [facility] 05-01-2024 18:09-0400 Body mass index (BMI) [Ratio] 47.82 kg/m2 Zoe Raya RECENTERER.BUILDING SUPERINTENDENT Work Phone: [facility] 05-01-2024 18:09-0400 Body temperature 97.9 [degF] Zoe Raya RECENTERER.BUILDING SUPERINTENDENT Work Phone: [facility] 05-01-2024 18:09-0400 Body weight 134.4 kg Zoe Raya RECENTERER.BUILDING SUPERINTENDENT Work Phone: [facility] 05-01-2024 18:09-0400 Diastolic blood pressure 79 mm[Hg] Zoe Raya RECENTERER.BUILDING SUPERINTENDENT Work Phone: [facility] 05-01-2024 18:09-0400 Heart rate 74 /min Zoe Raya RECENTERER.BUILDING SUPERINTENDENT Work Phone: [facility] 05-01-2024 18:09-0400 Respiratory rate 18 /min Zoe Raya RECENTERER.BUILDING SUPERINTENDENT Work Phone: [facility] 05-01-2024 18:09-0400 SaO2% (BldA) [Mass fraction] 98 % Zoe Raya RECENTERER.BUILDING SUPERINTENDENT Work Phone: [facility] 05-01-2024 18:09-0400 Systolic blood pressure 133 mm[Hg] Zoe Raya RECENTERER.BUILDING SUPERINTENDENT Work Phone: [facility] 03-03-2024 12:56-0400 Body height 167.6 cm Juana Anthony RECENTERER.BUILDING SUPERINTENDENT Work Phone: [facility] 03-03-2024 12:56-0400 Body mass index (BMI) [Ratio] 48.1 kg/m2 Juana Saginaw RECENTERER.BUILDING SUPERINTENDENT Work Phone: [facility] 03-03-2024 12:56-0400 Body weight 135.17 kg Juana Anthony RECENTERER.BUILDING SUPERINTENDENT Work Phone: [facility] 03-03-2024 12:56-0400 Diastolic blood pressure 72 mm[Hg] Juana [place] RECENTERER.BUILDING SUPERINTENDENT Work Phone: [facility] 03-03-2024 12:56-0400 Systolic blood pressure 118 mm[Hg] Juana [place] RECENTERER.BUILDING SUPERINTENDENT Work Phone: [facility] 02-19-2024 15:17-0400 Body height 167.6 cm Barbara Sonny RECENTERER.BUILDING SUPERINTENDENT Work Phone: [facility] 02-19-2024 15:17-0400 Body mass index (BMI) [Ratio] 48.74 kg/m2 Barbara Sonny RECENTERER.BUILDING SUPERINTENDENT Work Phone: [facility] 02-19-2024 15:17-0400 Body weight 136.99 kg Barbara Sonny RECENTERER.BUILDING SUPERINTENDENT Work Phone: [facility] 02-19-2024 15:17-0400 Diastolic blood pressure 76 mm[Hg] Barbara Sonny RECENTERER.BUILDING SUPERINTENDENT Work Phone: [facility] 02-19-2024 15:17-0400 Heart rate 87 /min Barbara Sonny RECENTERER.BUILDING SUPERINTENDENT Work Phone: [facility] 02-19-2024 15:17-0400 Respiratory rate 14 /min Barbara ColbertSonny RECENTERER.BUILDING SUPERINTENDENT Work Phone: [facility] 02-19-2024 15:17-0400 SaO2% (BldA) [Mass fraction] 97 % Barbara Sonny RECENTERER.BUILDING SUPERINTENDENT Work Phone: [facility] 02-19-2024 15:17-0400 Systolic blood pressure 130 mm[Hg] Barbara Sonny RECENTERER.BUILDING SUPERINTENDENT Work Phone: [facility] 12-25-2023 13:35-0400 Body temperature 97.2 [degF] [facility] 12-25-2023 13:35-0400 Diastolic blood pressure 75 mm[Hg] [facility] 12-25-2023 13:35-0400 Heart rate 78 /min [facility] 12-25-2023 13:35-0400 Respiratory rate 18 /min [facility] 12-25-2023 13:35-0400 SaO2% (BldA) [Mass fraction] 98 % [facility] 12-25-2023 13:35-0400 Systolic blood pressure 149 mm[Hg] [facility] 12-25-2023 11:42-0400 Body height 170.18 cm [facility] 12-25-2023 11:42-0400 Body mass index (BMI) [Ratio] 47.5 kg/m2 [facility] 12-25-2023 11:42-0400 Body weight 137.58 kg [facility] 11-20-2023 15:00-0500 Body weight 136.22 kg Barbara Sonny RECENTERER.BUILDING SUPERINTENDENT Work Phone: [facility] 11-20-2023 15:00-0500 Diastolic blood pressure 88 mm[Hg] Barbara Sonny RECENTERER.BUILDING SUPERINTENDENT Work Phone: [facility] 11-20-2023 15:00-0500 Heart rate 101 /min Barbara WangSonny RECENTERER.BUILDING SUPERINTENDENT Work Phone: [facility] 02-21-2024 15:00-0500 Respiratory rate 16 /min Barbara Sonny RECENTERER.BUILDING SUPERINTENDENT Work Phone: [facility] 11-20-2023 15:00-0500 SaO2% (BldA) [Mass fraction] 98 % Barbara Sonny RECENTERER.BUILDING SUPERINTENDENT Work Phone: [facility] 11-20-2023 15:00-0500 Systolic blood pressure 126 mm[Hg] Barbara Sonny RECENTERER.BUILDING SUPERINTENDENT Work Phone: [facility] 06-12-2023 10:02-0400 Body temperature 97.3 [degF] Haydee Athy PA-C Work Phone: [facility] 06-12-2023 10:02-0400 Body weight 135.81 kg Haydee Athy PA-C Work Phone: [facility] 06-12-2023 10:02-0400 Diastolic blood pressure 83 mm[Hg] Haydee Athy PA-C Work Phone: [facility] 06-12-2023 10:02-0400 Heart rate 77 /min Haydee Athy PA-C Work Phone: [facility] 06-12-2023 10:02-0400 Respiratory rate 20 /min Haydee Athy PA-C Work Phone: [facility] 06-12-2023 10:02-0400 SaO2% (BldA) [Mass fraction] 99 % Haydee Athy PA-C Work Phone: [facility] 06-12-2023 10:02-0400 Systolic blood pressure 145 mm[Hg] Haydee Athy PA-C Work Phone: [facility] 05-15-2023 16:00-0400 Body weight 134.26 kg Barbara Older RECENTERER.BUILDING SUPERINTENDENT Work Phone: [facility] 05-15-2023 16:00-0400 Diastolic blood pressure 90 mm[Hg] Barbara Older RECENTERER.BUILDING SUPERINTENDENT Work Phone: [facility] 05-15-2023 16:00-0400 Heart rate 90 /min Barbara Older RECENTERER.BUILDING SUPERINTENDENT Work Phone: [facility] 05-15-2023 16:00-0400 Respiratory rate 14 /min Barbara Older RECENTERER.BUILDING SUPERINTENDENT Work Phone: [facility] 05-15-2023 16:00-0400 Systolic blood pressure 136 mm[Hg] Barbara Older RECENTERER.BUILDING SUPERINTENDENT Work Phone: [facility] 02-01-2023 09:03-0400 Body weight 130.64 kg Angle Reagan RECENTERER.BUILDING SUPERINTENDENT Work Phone: [facility] 02-01-2023 09:03-0400 Diastolic blood pressure 84 mm[Hg] Angle Reagan RECENTERER.BUILDING SUPERINTENDENT Work Phone: [facility] 02-01-2023 09:03-0400 Heart rate 90 /min Angle Reagan RECENTERER.BUILDING SUPERINTENDENT Work Phone: [facility] 02-01-2023 09:03-0400 SaO2% (BldA) [Mass fraction] 98 % Angle Reagan RECENTERER.BUILDING SUPERINTENDENT Work Phone: [facility] 02-01-2023 09:03-0400 Systolic blood pressure 124 mm[Hg] Angle Reagan RECENTERER.BUILDING SUPERINTENDENT Work Phone: [facility] 01-25-2023 14:46-0400 Body weight 130.64 kg Angle Reagan RECENTERER.BUILDING SUPERINTENDENT Work Phone: [facility] 01-25-2023 14:46-0400 Diastolic blood pressure 80 mm[Hg] Angle Reagan RECENTERER.BUILDING SUPERINTENDENT Work Phone: [facility] 01-25-2023 14:46-0400 Heart rate 106 /min Angle Reagan RECENTERER.BUILDING SUPERINTENDENT Work Phone: [facility] 01-25-2023 14:46-0400 SaO2% (BldA) [Mass fraction] 97 % Angle Reagan RECENTERER.BUILDING SUPERINTENDENT Work Phone: [facility] 01-25-2023 14:46-0400 Systolic blood pressure 120 mm[Hg] Angle Reagan RECENTERER.BUILDING SUPERINTENDENT Work Phone: [facility] 11-14-2022 11:17-0500 Diastolic blood pressure 82 mm[Hg] Fransisco Angel MD Work Phone: [facility] 11-14-2022 11:17-0500 Heart rate 99 /min Fransisco Angel MD Work Phone: [facility] 11-14-2022 11:17-0500 Systolic blood pressure 114 mm[Hg] Fransisco Angel MD Work Phone: [facility] 11-14-2022 11:12-0500 Body temperature 97.5 [degF] Fransisco Angel MD Work Phone: [facility] 11-14-2022 11:12-0500 Body weight 127.46 kg Fransisco Angel MD Work Phone: [facility] 11-13-2022 13:40-0500 Body height 170.2 cm Lyndon Velasquez MD Work Phone: [facility] 11-13-2022 13:40-0500 Body weight 124.74 kg Lyndon Velasquez MD Work Phone: [facility] 11-13-2022 13:40-0500 Diastolic blood pressure 81 mm[Hg] Lyndon Velasquez MD Work Phone: [facility] 11-13-2022 13:40-0500 Systolic blood pressure 141 mm[Hg] Lyndon Velasquez MD Work Phone: [facility] 10-23-2022 10:46-0500 Body height 170.2 cm Lyndon Velasquez MD Work Phone: [facility] 10-23-2022 10:46-0500 Body weight 124.74 kg Lyndon Velasquez MD Work Phone: [facility] 10-23-2022 10:46-0500 Diastolic blood pressure 90 mm[Hg] Lyndon Velasquez MD Work Phone: [facility] 10-23-2022 10:46-0500 Systolic blood pressure 144 mm[Hg] Lyndon Velasquez MD Work Phone: [facility] 10-03-2022 09:31-0500 Body weight 125.19 kg Angle Reagan RECENTERER.BUILDING SUPERINTENDENT Work Phone: [facility] 10-03-2022 09:31-0500 Diastolic blood pressure 80 mm[Hg] Angle Reagan RECENTERER.BUILDING SUPERINTENDENT Work Phone: [facility] 10-03-2022 09:31-0500 Heart rate 90 /min Angle Reagan RECENTERER.BUILDING SUPERINTENDENT Work Phone: [facility] 10-03-2022 09:31-0500 SaO2% (BldA) [Mass fraction] 98 % Angle Reagan RECENTERER.BUILDING SUPERINTENDENT Work Phone: [facility] 10-03-2022 09:31-0500 Systolic blood pressure 120 mm[Hg] Angle Reagan RECENTERER.BUILDING SUPERINTENDENT Work Phone: [facility] 09-12-2022 09:59-0500 Body temperature 98.91 [degF] Juliane Praisler-Wood RECENTERER.BUILDING SUPERINTENDENT Work Phone: [facility] 09-12-2022 09:59-0500 Body weight 127.01 kg Juliane Praisler-Wood RECENTERER.BUILDING SUPERINTENDENT Work Phone: [facility] 09-12-2022 09:59-0500 Diastolic blood pressure 74 mm[Hg] Juliane Praisler-Wood RECENTERER.BUILDING SUPERINTENDENT Work Phone: [facility] 09-12-2022 09:59-0500 Heart rate 90 /min Juliane Praisler-Wood RECENTERER.BUILDING SUPERINTENDENT Work Phone: [facility] 09-12-2022 09:59-0500 Respiratory rate 16 /min Juliane Praisler-Wood RECENTERER.BUILDING SUPERINTENDENT Work Phone: [facility] 09-12-2022 09:59-0500 SaO2% (BldA) [Mass fraction] 98 % Juliane Praisler-Wood RECENTERER.BUILDING SUPERINTENDENT Work Phone: [facility] 09-12-2022 09:59-0500 Systolic blood pressure 128 mm[Hg] Juliane Rosa RECENTERER.BUILDING SUPERINTENDENT Work Phone: [facility] 05-22-2022 15:29-0400 Diastolic blood pressure 84 mm[Hg] Barbara Older RECENTERER.BUILDING SUPERINTENDENT Work Phone: [facility] 05-22-2022 15:29-0400 Systolic blood pressure 125 mm[Hg] Barbara Older RECENTERER.BUILDING SUPERINTENDENT Work Phone: [facility] 05-22-2022 14:56-0400 Body weight 133.81 kg Barbara Older RECENTERER.BUILDING SUPERINTENDENT Work Phone: [facility] 05-22-2022 14:56-0400 Heart rate 84 /min Barbara Older RECENTERER.BUILDING SUPERINTENDENT Work Phone: [facility] 05-22-2022 14:56-0400 Respiratory rate 20 /min Barbara Older RECENTERER.BUILDING SUPERINTENDENT Work Phone: [facility] 04-02-2022 15:16-0400 Body height 170.18 cm [facility] Work Phone: 04-02-2022 15:16-0400 Body mass index (BMI) [Ratio] 47.5 kg/m2 [facility] Work Phone: 04-02-2022 15:16-0400 Body temperature 96.7 [degF] [facility] Work Phone: 04-02-2022 15:16-0400 Body weight 137.5 kg [facility] Work Phone: 04-02-2022 15:16-0400 Diastolic blood pressure 106 mm[Hg] [facility] Work Phone: 04-02-2022 15:16-0400 Heart rate 100 /min [facility] Work Phone: 04-02-2022 15:16-0400 Respiratory rate 18 /min [facility] Work Phone: 04-02-2022 15:16-0400 Systolic blood pressure 153 mm[Hg] [facility] Work Phone: 02-19-2022 14:03-0400 Body temperature 96.8 [degF] Fransisco Angel MD Work Phone: [facility] 02-19-2022 14:03-0400 Body weight 135.17 kg Fransisco Angel MD Work Phone: [facility] 02-19-2022 14:03-0400 Diastolic blood pressure 80 mm[Hg] Fransisco Angel MD Work Phone: [facility] 02-19-2022 14:03-0400 Heart rate 80 /min Fransisco Angel MD Work Phone: [facility] 02-19-2022 14:03-0400 Respiratory rate 28 /min Fransisco Angel MD Work Phone: [facility] 02-19-2022 14:03-0400 SaO2% (BldA) [Mass fraction] 96 % Fransisco Angel MD Work Phone: [facility] 02-19-2022 14:03-0400 Systolic blood pressure 124 mm[Hg] Fransisco Angel MD Work Phone: [facility] 02-03-2022 13:25-0400 Body temperature 97.7 [degF] Barbara Older RECENTERER.BUILDING SUPERINTENDENT Work Phone: [facility] 02-03-2022 13:25-0400 Body weight 134.26 kg Barbara Older RECENTERER.BUILDING SUPERINTENDENT Work Phone: [facility] 02-03-2022 13:25-0400 Diastolic blood pressure 80 mm[Hg] Barbara Older RECENTERER.BUILDING SUPERINTENDENT Work Phone: [facility] 02-03-2022 13:25-0400 Heart rate 98 /min Barbara Older RECENTERER.BUILDING SUPERINTENDENT Work Phone: [facility] 02-03-2022 13:25-0400 Respiratory rate 20 /min Barbara Older RECENTERER.BUILDING SUPERINTENDENT Work Phone: [facility] 02-03-2022 13:25-0400 SaO2% (BldA) [Mass fraction] 97 % Barbara Older RECENTERER.BUILDING SUPERINTENDENT Work Phone: [facility] 02-03-2022 13:25-0400 Systolic blood pressure 132 mm[Hg] Barbara Older RECENTERER.BUILDING SUPERINTENDENT Work Phone: [facility] 12-03-2021 16:37-0500 Body mass index (BMI) [Ratio] 43 kg/m2 [facility] Work Phone: 12-03-2021 16:37-0500 Body temperature 97 [degF] [facility] Work Phone: 12-03-2021 16:37-0500 Body weight 124.73 kg [facility] Work Phone: 12-03-2021 16:37-0500 Diastolic blood pressure 96 mm[Hg] [facility] Work Phone: 12-03-2021 16:37-0500 Heart rate 100 /min [facility] Work Phone: 12-03-2021 16:37-0500 Respiratory rate 18 /min [facility] Work Phone: 12-03-2021 16:37-0500 SaO2% (BldA) [Mass fraction] 97 % [facility] Work Phone: 12-03-2021 16:37-0500 Systolic blood pressure 179 mm[Hg] [facility] Work Phone: Encounters Encounter Date Encounter Type Care Provider Facility Start: 04-12-2025 ambulatory [facility] Facility: [facility] Start: 04-12-2025 End: 04-12-2025 Subsequent hospital visit by physician Screen Mammo [facility] Mammogram Comment on above: Encounter for screen ing mammogram for malignant neoplasm of breast [Z12.31] Start: 03-18-2025 End: 03-18-2025 Emergency department patient visit JAIME HASTINGS DO [facility] Start: 03-09-2025 End: 03-09-2025 ambulatory BARBARA CORONADO Facility:[facility] Start: 03-05-2025 End: 03-05-2025 Patient encounter procedure Juana Cruz APRN.BUILDING SUPERINTENDENT Work Phone: OB/Gynecology Comment on above: Encounter for gyneco logical examination (general) (routine) without abnormal findings (Primary Dx); Encounter for screening mammogram for malignant neoplasm of breast; Abnormal uterine bleeding (AUB) Start: 03-05-2025 End: 03-05-2025 Patient encounter status Juana Cruz RECENTERER.BUILDING SUPERINTENDENT Work Phone: [facility] Start: 03-05-2025 End: 03-05-2025 ambulatory JUANA CRUZ Facility:[facility] Start: 03-05-2025 Encounter for gynecological examination (general) (routine) without abnormal findings JUANA CRUZ [facility] Start: 02-23-2025 End: 02-23-2025 Office outpatient visit 25 minutes Barbara Coronado APRN.BUILDING SUPERINTENDENT Work Phone: [facility] Comment on above: Primary hypertension (Primary Dx); Anxiety in acute stress reaction; Mild intermittent extrinsic asthma without complication (HCC); Seasonal allergic rhinitis, unspecified trigger; Migraine without aura and without status migrainosus, not intractable; Encounter for screening mammogram for breast cancer Start: 02-23-2025 End: 02-23-2025 ambulatory BARBARA CORONADO Facility:[facility] Start: 01-25-2025 End: 01-25-2025 Emergency department patient visit Dr. Fransisco Angel MD Work Phone: -Emergency Department Work Phone: Start: 01-01-2025 End: 01-01-2025 ambulatory BARBARA CORONADO Facility:[facility] Start: 01-01-2025 End: 01-01-2025 Patient encounter procedure Barbara Coronado RECENTERER.BUILDING SUPERINTENDENT Work Phone: [facility] [place] Comment on above: Migraine without aur a, not intractable, with status migrainosus (Primary Dx); Nausea and vomiting, unspecified vomiting type Start: 10-01-2024 End: 10-01-2024 Emergency department patient visit Dr. Guillermo Hinton DO -Emergency Department Work Phone: Start: 09-07-2024 End: 09-07-2024 Subsequent hospital visit by physician Xr [facility] Work Phone: Radiology Comment on above: Acute cough [R05.1] Start: 09-07-2024 End: 09-07-2024 ambulatory WILSON ABHIJIT Facility:[facility] Start: 09-07-2024 End: 09-07-2024 Patient encounter procedure Zoe Raya RECENTERER.BUILDING SUPERINTENDENT Work Phone: [facility] Comment on above: Acute cough (Primary Dx); Lower respiratory infection Start: 08-24-2024 End: 08-24-2024 Patient encounter procedure Barbara Coronado APRN.BUILDING SUPERINTENDENT Work Phone: [facility] [place] Comment on above: Viral URI with cough (Primary Dx); Primary hypertension; Hyperglycemia; Obesity, Class III, BMI >= 40; Anxiety and depression Start: 08-24-2024 End: 08-24-2024 ambulatory BARBARA CORONADO Facility:[facility] Start: 08-04-2024 End: 08-04-2024 Emergency department patient visit Fransisco Angel Facility:[facility] Start: 05-01-2024 End: 05-01-2024 ambulatory WILSON ANGEL Facility:[facility] Start: 05-01-2024 End: 05-01-2024 Patient encounter procedure Zoe Raya RECENTERER.BUILDING SUPERINTENDENT Work Phone: [facility] Comment on above: URI, acute (Primary Dx) Start: 04-11-2024 Documentation procedure Mammog gentry Coordinator [facility] Department Start: 04-11-2024 Letter encounter Mammography Coordinator [facility] Department Start: 04-10-2024 End: 04-10-2024 Subsequent hospital visit by physician Screen Mammo [facility] Mammogram Comment on above: Encounter for screen ing mammogram for breast cancer [Z12.31] Start: 03-03-2024 End: 03-03-2024 Patient encounter procedure Juana Cruz RECENTERER.BUILDING SUPERINTENDENT Work Phone: OB/Gynecology Comment on above: Encounter for gyneco logical examination (general) (routine) without abnormal findings (Primary Dx); Encounter for screening mammogram for breast cancer Start: 03-03-2024 End: 03-03-2024 Patient encounter status Juana Cruz RECENTERER.BUILDING SUPERINTENDENT Work Phone: [facility] Start: 02-19-2024 End: 02-19-2024 Patient encounter procedure Barbara Coronado RECENTERER.BUILDING SUPERINTENDENT Work Phone: [facility] [place] Comment on above: Primary hypertension (Primary Dx) Start: 12-25-2023 End: 12-25-2023 [facility] Start: 2023 ambulatory Fransisco guzman MD Work Phone: Internal Medicine [facility] Start: 12-03-2023 ambulatory Barbara angulo RECENTERER.BUILDING SUPERINTENDENT Work Phone: [facility] [place] Comment on above: lab results Start: 12-03-2023 E-mail encounter fro m caregiver Barbara Coronado APRN.BUILDING SUPERINTENDENT Work Phone: [facility] Start: 11-20-2023 End: 11-20-2023 Patient encounter procedure Barbara Coronado APRN.BUILDING SUPERINTENDENT Work Phone: [facility] [place] Comment on above: Primary hypertension (Primary Dx) Start: 06-18-2023 Telephone encounter Fransisco noble MD Work Phone: [facility] [place] Comment on above: MRI Appointment Start: 06-12-2023 End: 06-12-2023 Subsequent hospital visit by physician Xr [facility] Work Phone: Radiology Comment on above: Suspected COVID-19 v irus infection [Z20.822] Start: 06-12-2023 End: 06-12-2023 Patient encounter procedure Haydee Gramajo PA-C Work Phone: [facility] Comment on above: Suspected COVID-19 v irus infection (Primary Dx) Start: 05-15-2023 End: 05-15-2023 Patient encounter procedure Barbara Older RECENTERER.BUILDING SUPERINTENDENT Work Phone: [facility] [place] Comment on above: Panic attacks (Prima ry Dx); Elevated blood pressure reading in office without diagnosis of hypertension; Migraine without aura and without status migrainosus, not intractable; Adjustment disorder with anxiety; 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; Hemangioma of liver; Obesity, Class III, BMI >= 40 Start: 03-05-2023 Refill Barbara Older RECENTERER .BUILDING SUPERINTENDENT Work Phone: [facility] [place] Comment on above: Refill Request Start: 03-04-2023 Telephone encounter Fransisco noble MD Work Phone: [facility] Comment on above: Appointment Start: 02-04-2023 Telephone encounter Fransisco noble MD Work Phone: Family [facility] Comment on above: Orders Start: 02-01-2023 End: 02-01-2023 Patient encounter procedure Angle Nieto APRN.BUILDING SUPERINTENDENT Work Phone: [facility] [place] Comment on above: Positive Priscilla te st of right knee, initial encounter (Primary Dx); Acute pain of right knee Start: 01-29-2023 ambulatory Angle CALVERTBUILDING SUPERINTENDENT Work Phone: [facility] [place] Comment on above: x-ray Start: 01-29-2023 E-mail encounter fro m caregiver Angle Nieto APRN.BUILDING SUPERINTENDENT Work Phone: [facility] Start: 01-25-2023 End: 01-25-2023 Subsequent hospital visit by physician Rosana [facility] [place] Work Phone: Radiology Comment on above: Acute pain of right knee [M25.561] Start: 01-25-2023 End: 01-25-2023 Patient encounter procedure Angle Nieto APRN.BUILDING SUPERINTENDENT Work Phone: [facility] [place] Comment on above: Acute pain of right knee (Primary Dx); Positive Priscilla test of right knee, initial encounter Start: 12-14-2022 End: 12-14-2022 Patient encounter procedure Fransisco Angel MD Work Phone: [facility] [place] Comment on above: Hemangioma of liver (Primary Dx); 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 Start: 12-10-2022 End: 12-10-2022 Subsequent hospital visit by physician Mri Radio [facility] (I-Stat/1.5t) Work Phone: Radiology Comment on above: Liver lesion [K76.9] Start: 12-07-2022 Telephone encounter Fransisco noble MD Work Phone: [facility] [place] Comment on above: Patient Question Start: 11-15-2022 Documentation procedure Mammog gentry Coordinator [facility] Start: 11-15-2022 Letter encounter Mammography Coordinator [facility] Department Start: 11-15-2022 End: 11-15-2022 Subsequent hospital visit by physician [facility] Comment on above: Encounter for screen ing mammogram for malignant neoplasm of breast [Z12.31] Start: 11-14-2022 End: 11-14-2022 Patient encounter procedure Fransisco Angel MD Work Phone: [facility] [place] Comment on above: Liver lesion (Primar y Dx); Need for influenza vaccination; Screening for cervical cancer; Migraine without aura and without status migrainosus, not intractable; Screening for colon cancer; Family history of liver cancer Start: 11-13-2022 End: 11-13-2022 ambulatory LYNDON VELASQUEZ Facility:[facility] Start: 11-13-2022 End: 11-13-2022 Patient encounter procedure Lyndon Velasquez MD Work Phone: [facility] Comment on above: Right nephrolithiasi s (Primary Dx); Renal cyst, left; Hepatic lesion Start: 11-06-2022 End: 11-06-2022 Subsequent hospital visit by physician Ct [facility] (I-Stat) Work Phone: [facility] Comment on above: Other hydronephrosis [N13.39] Start: 10-23-2022 End: 10-23-2022 ambulatory LYNDON VELASQUEZ Facility:[facility] Start: 10-23-2022 End: 10-23-2022 Patient encounter procedure Lyndon Velasquez MD Work Phone: Urology Comment on above: Left flank pain (Awa chris Dx); Right nephrolithiasis; Renal cyst, left; Abnormal urinalysis; Other hydronephrosis Start: 10-12-2022 End: 10-12-2022 Subsequent hospital visit by physician [facility] Work Phone: Radiology Comment on above: History of kidney st ones [Z87.442] Start: 10-03-2022 End: 10-03-2022 Patient encounter procedure Angle Nieto APRN.BUILDING SUPERINTENDENT Work Phone: [facility] [place] Comment on above: Acute left-sided low back pain without sciatica (Primary Dx); History of kidney stones; Leukocytes in urine Start: 09-12-2022 End: 09-12-2022 Patient encounter procedure Juliane Rosa APRN.BUILDING SUPERINTENDENT Work Phone: [facility] Comment on above: Sore throat (Primary Dx); Exposure to strep throat; Viral URI with cough Start: 07-24-2022 Refill Barbara Older RECENTERER .BUILDING SUPERINTENDENT Work Phone: [facility] [place] Comment on above: Refill Request Start: 06-01-2022 End: 06-01-2022 ambulatory Barbara Gracia RECENTERER.BUILDING SUPERINTENDENT Work Phone: [facility] Work Phone: Comment on above: CT and lab results Start: 06-01-2022 E-mail encounter fro m caregiver Barbara Gracia APRN.BUILDING SUPERINTENDENT Work Phone: [facility] Start: 06-01-2022 End: 06-01-2022 Patient encounter procedure [facility]Laboratory, Specimen Start: 05-22-2022 End: 05-22-2022 Patient encounter procedure Barbara Older RECENTERER.BUILDING SUPERINTENDENT Work Phone: [facility] [place] Comment on above: Acute intractable he adache, unspecified headache type (Primary Dx) Start: 04-02-2022 End: 04-02-2022 [facility] Start: 03-23-2022 End: 03-23-2022 Patient encounter procedure Fransisco Angel MD Work Phone: [facility] [place] Comment on above: Routine medical exam (Primary [...] Fransisco Angel MD Work Phone: [facility] [place] Start: 02-19-2022 End: 02-19-2022 Subsequent hospital visit by physician Xr [facility] Work Phone: Radiology Comment on above: Bronchospasm [J98.01 ] Start: 02-19-2022 End: 02-19-2022 Patient encounter procedure Fransisco Angel MD Work Phone: [facility] [place] Comment on above: Bronchospasm (Primar y Dx); COVID-19 Start: 02-03-2022 End: 02-03-2022 Patient encounter procedure Barbara Gracia APRN.CNP Work Phone: [facility] Comment on above: Suspected COVID-19 v irus infection (Primary Dx) Start: 12-03-2021 End: 12-03-2021 [facility] Start: 05-19-2012 End: 12-15-2021 Patient requested procedure Barbara Coronado APRN.CNP Work Phone: [facility] Procedures Date Procedure Procedure Detail Performing Clinician Start: 03-09-2025 Lipid 1996 panel - S caitlyn or Plasma Screen [facility] Start: 01-25-2025 X-ray of ankle, thre e or more views Dr. Fransisco Angel MD Work Phone: Start: 10-01-2024 Plain x-ray of wrist Dr Genet Angel MD Work Phone: Start: 09-07-2024 Radiologic exam ches t 2 views Zoe Raya RECENTERER.BUILDING SUPERINTENDENT Work Phone: Start: 05-01-2024 STREP A MOLECULAR (POC) [facility] Provider Start: 12-25-2023 Plain chest X-ray Start: 11-23-2023 Lipid 1996 panel - S caitlyn or Plasma Barbara Sonny RECENTERER.BUILDING SUPERINTENDENT Work Phone: Start: 06-12-2023 Radiologic exam ches t 2 views Haydee Azeem WEINSTEINC Work Phone: Start: 01-25-2023 Radiologic exam knee complete 4/more views Angle Nieto RECENTERER.BUILDING SUPERINTENDENT Work Phone: Start: 12-10-2022 Mri abdomen w/o & w/ contrast material Fransisco Angel MD Work Phone: Start: 11-15-2022 End: 11-15-2022 Mammography Fransisco Barron Work Phone: Start: 11-14-2022 [employer] COVI D-19 BIVALENT BOOSTER VACCINE, AGE 12+ [...] r eal time w/image complete Angle Nieto RECENTERER.BUILDING SUPERINTENDENT Work Phone: Start: 01-04-2023 Culture bacterial quanttative colony count urine Angle Reagan RECENTERER.MODESTA Work Phone: Start: 10-03-2022 Urnls dip stick/tabl [...] Author Start: 03-09-2030 Lipid panel Lipid Screening [facility] Start: 03-11-2029 Urine microalbumin profile [facility] Start: 11-23-2028 Lipid panel Lipid Screening [facility] Start: 03-09-2028 Diabetes Screening Diabetes Screenin [facility] Start: 12-11-2027 HPV TESTING HPV TESTING [facility] Start: 12-11-2027 PAP TESTING PAP TESTING [facility] Start: 12-11-2027 Screening for malign ant neoplasm of cervix [facility] Start: 03-24-2027 Lipid 1996 panel - Serum or Plasma Lipid Screening [facility] Start: 03-24-2027 Lipid panel Lipid Screening [facility] Start: 03-24-2027 LIPID SCREEN LIPID SCREEN [facility] Start: 12-02-2026 Diabetes Screening Diabetes Screenin g [facility] Start: 11-23-2026 Diabetes Screening Diabetes Screenin g [facility] Start: 03-08-2026 End: 03-08-2026 Patient encounter procedure 03/08/2026 3:30 PM EDT Office Visit OB/Gynecology [address] [place], [place] [id number] Juana Cruz APRN.MODESTA [address] [place] [id number] Annual OB/Gynecology Comment on above: Annual Start: 02-23-2026 Annual PCP Team Interior Design Project Manager barbara Disease Visit Annual PCP Team Chronic Disease Visit [facility] Start: 02-23-2026 Covid-19 Vaccine ( season) Covid-19 Vaccine () [facility] Comment on above: Postponed from 05/31 (Declined at this time) Start: 02-23-2026 Hepatitis B Vaccine (1 of 3 - 19+ 3-dose series) Hepatitis B Vaccine (1 of 3 - 19+ 3-dose series) [facility] Comment on above: Postponed from 12/18 (Declined at this time) Start: 01-01-2026 Annual PCP Team Interior Design Project Manager barbara Disease Visit Annual PCP Team Chronic Disease Visit [facility] Start: 01-01-2026 BP Controlled (<130/80) BP Controlle d (<130/80) [facility] Start: 12-12-2025 COLOGUARD (FIT-DNA) COLOGUARD (FIT-D NA) [facility] Start: 12-12-2025 COLORECTAL CANCER SCREENING COLORECTAL CANCER SCREENING [facility] Start: 12-12-2025 Screening for malign ant neoplasm of colon [facility] Start: 09-07-2025 BP Controlled (<130/80) BP Controlle d (<130/80) [facility] Start: 08-30-2025 End: 08-30-2025 Patient encounter procedure 08/30/2025 2:40 PM EST Office Visit [facility] [address] [place] [address] Barbara Coronado M, RECENTERER.BUILDING SUPERINTENDENT [address] [place] [address] annual wellness [facility] Comment on above: annual wellness Start: 08-24-2025 Annual PCP Team Interior Design Project Manager barbara Disease Visit Annual PCP Team Chronic Disease Visit [facility] Start: 08-24-2025 BP Controlled (<130/80) BP Controlle d (<130/80) [facility] Start: 05-31-2025 Influenza vaccination C [facility] Start: 05-22-2025 DIABETES SCREEN DIABETES SCREEN [facility] Start: 05-22-2025 Diabetes Screening Diabetes Screenin g [facility] Start: 04-12-2025 End: 04-12-2025 Patient encounter procedure 04/12/2025 2:50 PM EDT Appointment Mammogram [address] [place] [address] Encounter for screening mammogram for malignant neoplasm of breast [Z12.31] Mammogram Comment on above: Encounter for screen ing mammogram for malignant neoplasm of breast [Z12.31] Start: 04-10-2025 Screening for malign ant neoplasm of breast Mammogram Screening [facility] Start: 03-24-2025 DIABETES SCREEN DIABETES SCREEN [facility] Start: 03-18-2025 End: 03-18-2025 ambulatory 03/18/2025 2:30 PM EDT Procedure OB/Gynecology [address] [place] [address] Remote, [employer] [facility] [address] [place] [address] Abnormal uterine bleeding (AUB) [N93.9] OB/Gynecology Comment on above: Abnormal uterine ble eding (AUB) [N93.9] Start: 03-05-2025 End: 03-05-2025 Patient encounter procedure 03/05/2025 4:00 PM EDT Office Visit OB/Gynecology [address] [place] [address] Juana Cruz APRN.BUILDING SUPERINTENDENT [address] [place] [address] annual exam OB/Gynecology Comment on above: annual exam Start: 03-05-2025 End: 03-05-2026 US Pelvis PELVIC US [facility]I Anc Imaging Routine Abnormal uterine bleeding (AUB) Expected: 03/05/2025, Expires: 03/05/2026 [facility] Comment on above: Expected: 03/05/2025 , Expires: 03/05/2026 Start: 03-03-2025 BP Controlled (<130/80) BP Controlle d (<130/80) [facility] Start: 02-23-2025 End: 02-23-2025 Patient encounter procedure 02/23/2025 2:40 PM EDT Office Visit Internal Medicine [place] [address] [place] [address] Barbara Coronado, RECENTERER.BUILDING SUPERINTENDENT [address] [place] [address] 6 month follow up [facility] [place] Comment on above: 6 month follow up Start: 02-23-2025 End: 05-25-2025 LIPID PANEL, NONFASTING LIPID PANEL, NONFASTING Lab Routine Primary hypertension Expected: 02/23/2025, Expires: 05/25/2025 [facility] Comment on above: Expected: 02/23/2025 , Expires: 05/25/2025 Start: 02-18-2025 Annual PCP Team Interior Design Project Manager barbara Disease Visit Annual PCP Team Chronic Disease Visit [facility] Start: 01-28-2025 End: 04-29-2025 CBC panel - Blood by Automated count COMPLETE BLOOD COUNT Lab Routine Primary hypertension Expected: 01/28/2025 (Approximate), Expires: 04/29/2025 [facility] Comment on above: Expected: 01/28/2025 (Approximate), Expires: 04/29/2025 Start: 01-28-2025 End: 04-29-2025 Comprehensive metabolic 2000 panel - Serum or Plasma COMPREHENSIVE METABOLIC PANEL Lab Routine Primary hypertension Expected: 01/28/2025 (Approximate), Expires: 04/29/2025 [facility] Work Phone: Comment on above: Expected: 01/28/2025 (Approximate), Expires: 04/29/2025 Start: 01-28-2025 End: 04-29-2025 Hemoglobin A1c in Blood HEMOGLOBIN A1C Lab Routine Hyperglycemia Expected: 01/28/2025 (Approximate), Expires: 04/29/2025 [facility] Comment on above: Expected: 01/28/2025 (Approximate), Expires: 04/29/2025 Start: 01-28-2025 End: 04-29-2025 Lipid 1996 panel - Serum or Plasma LIPID PANEL BASIC Lab Routine Primary hypertension Expected: 01/28/2025 (Approximate), Expires: 04/29/2025 [facility] Comment on above: Expected: 01/28/2025 (Approximate), Expires: 04/29/2025 Start: 01-25-2025 [facility] Start: 11-20-2024 Annual PCP Team Interior Design Project Manager barbara Disease Visit Annual PCP Team Chronic Disease Visit [facility] Start: 10-01-2024 [facility] Start: 08-24-2024 End: 08-24-2024 Patient encounter procedure 08/24/2024 2:40 PM EST Office Visit Internal Medicine [place] [address] [place] [address] Barbara Coronado, RECENTERER.BUILDING SUPERINTENDENT [address] [place] [address] 6 month follow up Internal [facility] [place] Comment on above: 6 month follow up Start: 05-31-2024 Covid-19 Vaccine ( season) Covid-19 Vaccine ( season) [facility] Start: 05-31-2024 Covid-19 Vaccine ( season) Covid-19 Vaccine ( season) [facility] Start: 05-31-2024 Influenza vaccination [facility] Start: 05-15-2024 HEPATITIS B (1 of 3 - 3-dose series) HEPATITIS B (1 of 3 - 3-dose series) [facility] Comment on above: Postponed from 12/18 (Declined at this time) Start: 05-15-2024 Hepatitis B Vaccine (1 of 3 - 19+ 3-dose series) Hepatitis B Vaccine (1 of 3 - 19+ 3-dose series) [facility] Comment on above: Postponed from 12/18 (Declined at this time) Start: 05-15-2024 Hepatitis B Vaccine (1 of 3 - 3-dose series) Hepatitis B Vaccine (1 of 3 - 3-dose series) [facility] Comment on above: Postponed from 12/18 (Declined at this time) Start: 04-10-2024 End: 04-10-2024 Patient encounter procedure 04/10/2024 2:50 PM EDT Appointment Mammogram [address] [place] [address] Encounter for screening mammogram for breast cancer [Z12.31] Mammogram Comment on above: Encounter for screen ing mammogram for breast cancer [Z12.31] Start: 03-03-2024 End: 03-03-2024 Patient encounter procedure 03/03/2024 1:00 PM EDT Office Visit OB/Gynecology [address] [place] [address] Juana Cruz APRN.BUILDING SUPERINTENDENT [address] [place] [address] Annual OB/Gynecology Comment on above: Annual Start: 12-25-2023 [facility] Start: 12-25-2023 Blood chemistry [facility] Start: 12-25-2023 End: 12-25-2023 [facility] Start: 12-03-2023 End: 03-03-2024 Hemoglobin A1c in Blood HGB A1C Lab Routine Hyperglycemia Expected: 12/03/2023, Expires: 03/03/2024 [facility] Work Phone: Comment on above: Expected: 12/03/2023 , Expires: 03/03/2024 Start: 11-20-2023 End: 02-19-2024 CBC panel - Blood by Automated count CBC Lab Routine Primary hypertension Expected: 11/20/2023, Expires: 02/19/2024 [facility] Work Phone: Comment on above: Expected: 11/20/2023 , Expires: 02/19/2024 Start: 11-20-2023 End: 02-19-2024 Comprehensive metabolic 2000 panel - Serum or Plasma COMP METABOLIC PANEL Lab Routine Primary hypertension Expected: 11/20/2023, Expires: 02/19/2024 [facility] Work Phone: Comment on above: Expected: 11/20/2023 , Expires: 02/19/2024 Start: 11-20-2023 End: 02-19-2024 Lipid 1996 panel - Serum or Plasma LIPID PANEL BASIC Lab Routine Primary hypertension Expected: 11/20/2023, Expires: 02/19/2024 [facility] Work Phone: Comment on above: Expected: 11/20/2023 , Expires: 02/19/2024 Start: 11-15-2023 Mammography [facility] Start: 11-15-2023 Screening for malign ant neoplasm of breast Mammogram Screening [facility] Start: 05-31-2023 Covid-19 Vaccine () Covid-19 Vaccine () [facility] Start: 05-31-2023 Influenza vaccination [facility] Start: 11-13-2022 End: 01-13-2023 Bacteria identified in Urine by Culture URINE CULTURE Microbiology Routine Abnormal urinalysis Expected: 11/13/2022 (Approximate), Expires: 01/13/2023 [facility] Work Phone: Comment on above: Expected: 11/13/2022 (Approximate), Expires: 01/13/2023 Start: 11-13-2022 End: 01-13-2023 CREATININE BLD CREATININE BLD Lab Routine Renal cyst, left Other hydronephrosis Expected: 11/13/2022 (Approximate), Expires: 01/13/2023 [facility] Work Phone: Comment on above: Expected: 11/13/2022 (Approximate), Expires: 01/13/2023 Start: 11-13-2022 End: 11-22-2023 Ct abdomen & pelvis w/o contrst 1/> body re CT UROGRAM WO/W IVCON Radiology Routine Other hydronephrosis Expected: 11/13/2022 (Approximate), Expires: 11/22/2023 [facility] Work Phone: Comment on above: Expected: 11/13/2022 (Approximate), Expires: 11/22/2023 Start: 11-13-2022 End: 01-13-2023 Urinalysis complete panel - Urine URINALYSIS, WITH MICROSCOPIC Lab Routine Abnormal urinalysis Expected: 11/13/2022 (Approximate), Expires: 01/13/2023 [facility] Work Phone: Comment on above: Expected: 11/13/2022 (Approximate), Expires: 01/13/2023 Start: 09-12-2022 End: 09-26-2022 Influenza virus A and B RNA and SARS-CoV-2 (COVID-19) N gene panel - Respiratory specimen by ESTHER with probe detection COVID WITH FLUA+B, ROUTINE Microbiology Routine Viral URI with cough Expected: 09/12/2022, Expires: 09/26/2022 [facility] Work Phone: Comment on above: Expected: 09/12/2022 , Expires: 09/26/2022 Start: 05-31-2022 Influenza vaccination C [facility] Start: 03-24-2022 End: 05-24-2022 Hepatitis C virus Ab [Presence] in Serum [facility] Work Phone: Comment on above: Expected: 03/24/2022 , Expires: 05/24/2022 Start: 02-03-2022 End: 02-17-2022 SARS-CoV-2 (COVID-19) RNA [Presence] in Respiratory specimen by ESTHER with probe detection 2019 CORONAVIRUS Microbiology Routine Suspected COVID-19 virus infection Expected: 02/03/2022, Expires: 02/17/2022 [facility] Work Phone: Comment on above: Expected: 02/03/2022 , Expires: 02/17/2022 Start: 2021 COLOGUARD (FIT-DNA) COLOGUARD (FIT-D NA) [facility] Start: 2021 Colonoscopy COLONOSCOPY [facility] Start: 2021 COLORECTAL CANCER SCREENING COLORECTAL CANCER SCREENING [facility] Start: [address] COLONOGRAPHY [facility] Start: 2021 DIABETES SCREEN DIABETES SCREEN [facility] Start: 2021 FECAL OCCULT BLOOD FECAL OCCULT BLOO D [facility] Start: 2021 LIPID SCREEN LIPID SCREEN [facility] Start: 2021 Screening for malign ant neoplasm of colon [facility] Start: 2021 SIGMOIDOSCOPY SIGMOIDOSCOPY [facility] Start: 08-07-2021 COVID-19 VACCINE (3 - Booster for Pfizer series) COVID-19 VACCINE (3 - Booster for Pfizer series) [facility] Start: 05-02-2021 COVID-19 VACCINE (3 - Booster for Pfizer series) COVID-19 VACCINE (3 - Booster for Pfizer series) [facility] Start: 04-13-2019 Urine microalbumin profile DTAP,TDAP,TD (2 - Td or Tdap) [facility] Start: 2016 Mammography MAMMOGRAM [facility] Start: 02-28-2016 HPV TESTING HPV TESTING [facility] Start: 02-28-2016 PAP TESTING PAP TESTING [facility] Start: 12-19-1995 Hepatitis B Vaccine (1 of 3 - 19+ 3-dose series) Hepatitis B Vaccine (1 of 3 - 19+ 3-dose series) [facility] Start: 1994 Anxiety Screening Anxiety Screening [facility] Start: 1994 BP Controlled (<130/80) BP Controlle d (<130/80) [facility] Start: 1994 Depression Screening Depression Scre ening [facility] Start: 1994 HEPATITIS C SCREENING HEPATITIS C SC REENING [facility] Start: 1976 HEPATITIS B (1 of 3 - 3-dose series) HEPATITIS B (1 of 3 - 3-dose series) [facility] COLOGUARD COLOGUARD Lab Ro utine Screening for colon cancer Ordered: 11/14/2022 [facility] Work Phone: Comment on above: Ordered: 11/14/2022 COVID & INFLUENZA A/ B & RSV PCR, ROUTINE COVID & INFLUENZA A/B & RSV PCR, ROUTINE Microbiology Routine Viral URI with cough 08/24/2024 2:56 PM EST [facility] End: 04-04-2026 DBT Breast - bilateral screening RUFINO SCREENING W HELENE Radiology Routine Encounter for screening mammogram for malignant neoplasm of breast 1 Occurrences starting 03/05/2025 until 04/04/2026 [facility] Work Phone: Comment on above: 1 Occurrences starti ng 03/05/2025 until 04/04/2026 DBT Breast - bilater al screening RUFINO SCREENING W HELENE Radiology Routine Encounter for screening mammogram for malignant neoplasm of breast 04/12/2025 2:55 PM EDT [facility] Work Phone: Hemoglobin.gastroint est inal.lower [Presence] in Stool by Immunoassay FECAL OCCULT BLOOD TEST Lab Routine Screening for colon cancer Ordered: 03/23/2022 [facility] Work Phone: Comment on above: Ordered: 03/23/2022 Influenza virus A an d B RNA and SARS-CoV-2 (COVID-19) N gene panel - Respiratory specimen by ESTHER with probe detection COVID & INFLUENZA A/B NAAT, ROUTINE Microbiology Routine Suspected COVID-19 virus infection Ordered: 06/12/2023 [facility] Work Phone: Comment on above: Ordered: 06/12/2023 End: 01-16-2025 MG Breast Screening RUFINO SCREENING Radiology Routine Encounter for screening mammogram for breast cancer 1 Occurrences starting 2023 until 01/16/2025 [facility] Work Phone: Comment on above: 1 Occurrences starti ng 2023 until 01/16/2025 End: 04-02-2025 MG Breast Screening RUFINO SCREENING Radiology Routine Encounter for screening mammogram for breast cancer 1 Occurrences starting 03/03/2024 until 04/02/2025 [facility] Work Phone: Comment on above: 1 Occurrences starti ng 03/03/2024 until 04/02/2025 MG Breast Screening RUFINO SCREENIN G Radiology Routine Encounter for screening mammogram for breast cancer 04/10/2024 2:51 PM EDT [facility] Work Phone: MG Breast Screening RUFINO SCREENIN G Radiology Routine Encounter for screening mammogram for breast cancer 1 Occurrences starting 02/23/2025 [facility] Work Phone: Comment on above: 1 Occurrences starti ng 02/23/2025 End: 06-13-2024 Mri abdomen w/o & w/contrast material MRI LIVER WO/W IVCON Radiology Routine 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 Hemangioma of liver 1 Occurrences starting 05/15/2023 until 06/13/2024 [facility] Work Phone: Comment on above: 1 Occurrences starti ng 05/15/2023 until 06/13/2024 End: 12-14-2023 Mri abdomen w/o contrast material MRI LIVER WO IVCON Radiology Routine Liver lesion 1 Occurrences starting 11/14/2022 until 12/14/2023 [facility] Work Phone: Comment on above: 1 Occurrences starti ng 11/14/2022 until 12/14/2023 End: 02-24-2024 MRI KNEE WO IVCON RIGHT MRI KNEE WO IVCON RIGHT Radiology Routine Acute pain of right knee Positive Priscilla test of right knee, initial encounter 1 Occurrences starting 01/25/2023 until 02/24/2024 [facility] Work Phone: Comment on above: 1 Occurrences starti ng 01/25/2023 until 02/24/2024 Patient Education [facility] Work Phone: Patient referral [facility] Work Phone: End: 04-22-2023 Screening mammography bi 2-view breast inc cad RUFINO SCREENING Radiology Routine Encounter for screening mammogram for malignant neoplasm of breast 1 Occurrences starting 03/23/2022 until 04/22/2023 [facility] Work Phone: Comment on above: 1 Occurrences starti ng 03/23/2022 until 04/22/2023 UA DIP B/O UA DIP B/O Lab R outine Acute left-sided low back pain without sciatica Ordered: 10/03/2022 [facility] Work Phone: Comment on above: Ordered: 10/03/2022 End: 02-24-2024 XR KNEE GENERAL 4V AP BOTH/PA BOTH/LAT/MERC RIGHT XR KNEE GENERAL 4V AP BOTH/PA BOTH/LAT/MERC RIGHT Radiology Routine Acute pain of right knee Positive Priscilla test of right knee, initial encounter 1 Occurrences starting 01/25/2023 until 02/24/2024 [facility] Work Phone: Comment on above: 1 Occurrences starti ng 01/25/2023 until 02/24/2024 XR KNEE GENERAL 4V A P BOTH/PA BOTH/LAT/MERC RIGHT XR KNEE GENERAL 4V AP BOTH/PA BOTH/LAT/MERC RIGHT Radiology Routine Acute pain of right knee Positive Priscilla test of right knee, initial encounter 01/25/2023 3:49 PM EDT [facility] Work Phone: [facility] Immunizations Immunization Date Immunization Notes Care Provider Fa vy 11-14-2022 COVID-19 booster vaccine, age 12+ yr, bivalent (PFIZER-BIONTECH) Fransisco Angel MD Work Phone: [facility] Work Phone: 11-14-2022 influenza, injectabl e, quadrivalent, contains preservative Fransisco Angel MD Work Phone: [facility] Work Phone: 11-14-2022 influenza virus vaccine, unspecified formulation Haydee Gramajo PA-C Work Phone: [facility] 03-11-2019 tetanus toxoid, redu deng diphtheria toxoid, and acellular pertussis vaccine, adsorbed Fransisco Angel MD Work Phone: [facility] Work Phone: 09-18-2015 tetanus toxoid, redu deng diphtheria toxoid, and acellular pertussis vaccine, adsorbed Fransisco Angel MD Work Phone: [facility] Work Phone: 04-13-2009 tetanus toxoid, redu deng diphtheria toxoid, and acellular pertussis vaccine, adsorbed Barbara Older RECENTERER.BUILDING SUPERINTENDENT Work Phone: [facility] Work Phone: Payers Date Payer Category Payer Self-pay [id number] 2024 Private Health Insurance [id number] 2024 Self-pay [id number] 2023 Medicare [employer] [facility] [id number] 2023-Present [phone] [address] [place] [address] Medicare [id number] 2020 Unknown MMO MMO [employer] [id number] 2020-Present [phone] [address] [place] [address] PPO [id number] 2020 Medicaid [employer] MEDICAID [facility] MEDICAID [id number] 2020-Present [phone] [address] [place] [address] Medicaid [id number] 2020 Medicaid [id number] 2020 Unknown [id number] 2015 Unknown [id number] 2005 Unknown [id number] 1976 Unknown [id number] Unknown [id number] Unknown OBWC 3HAB [id number] Unknown [id number] Unknown [id number] Unknown [id number] Social History Date Type Detail Facility Start: 05-22-2022 End: 08-24-2024 Tobacco smoking status NHIS Ex-smoker [facility] Start: 04-28-2010 End: 04-28-2012 History of tobacco use Current smoker [facility] Start: 02-03-2022 End: 03-05-2025 Alcohol intake Current drinker of alcohol (finding) [facility] Start: 12-14-2021 End: 11-13-2022 History SDOH Alcohol Frequency 2 [facility] Start: 12-14-2021 End: 11-13-2022 History SDOH Alcohol Std Drinks 1 [facility] Start: 05-19-2012 History SDOH Alcohol Comment Rarely,NOT WHILE [facility] Start: 12-14-2021 End: 11-13-2022 History SDOH Social Connections Phone 3 [facility] Start: 12-14-2021 End: 11-13-2022 History SDOH Social Connections Living 8 [facility] Start: 12-14-2021 History SDOH Stress 5 [facility] Start: 12-14-2021 End: 11-13-2022 History SDOH Financial 4 [facility] Start: 1975 Sex Assigned At Female [facility] Start: 01-24-2022 End: 02-03-2022 Exposure to SARS-CoV-2 (event) Unable to assess [facility] Start: 02-09-2022 End: 06-01-2022 Exposure to SARS-CoV-2 (event) Not sure [facility] Work Phone: Start: 03-23-2022 History SDOH Alcohol Comment 1-2 mixed drinks per month [facility] Start: 04-02-2022 End: 12-25-2023 Tobacco smoking status OKIS Unknown if ever smoked [facility] Start: 04-28-2010 End: 04-28-2012 History of tobacco use Cigarette Smoker [facility] Start: 05-22-2022 End: 08-24-2024 Tobacco use and exposure Smokeless tobacco non-user [facility] Start: 05-22-2022 Tobacco Comment as a teen [facility] Start: 11-13-2022 History SDOH Social Connections Get Together 98 [facility] Start: 11-13-2022 End: 02-23-2025 History of Social function [facility] Start: 11-13-2022 End: 02-23-2025 Social connection and isolation panel [facility] How often do you get together with friends or relatives? Patient refused [facility] Do you belong to any clubs or organizations such as Waff[employer] groups, [employer], [employer] or athle[employer]forcePro groups, or school groups? No [facility] Are you now , , , , never or living with a partner? Living with partner [facility] How often to you hav e a drink containing alcohol? Monthly or less [facility] How many standard dr inks containing alcohol do you have on a typical day? 1 or 2 [facility] How often do you hav e 6 or more drinks on 1 occasion? Less than monthly [facility] How hard is it for y ou to pay for the very basics like food, housing, medical care, and heating Somewhat hard [facility] Do you feel stress - tense, restless, nervous, or anxious, or unable to sleep at night because your mind is troubled all the time - these days [OSQ] Rather much [facility] (I/We) worried whebertram er (my/our) food would run out before (I/we) got money to buy more. Never true [facility] Start: 12-13-2021 Gender identity Identifies as female gender (finding) [facility] Start: 12-13-2021 Sexual orientation Heterosexual (finding) [facility] How often do you hav e 6 or more drinks on 1 occasion? Never [facility] Work Phone: How hard is it for y ou to pay for the very basics like food, housing, medical care, and heating Not very hard [facility] Do you feel stress - tense, restless, nervous, or anxious, or unable to sleep at night because your mind is troubled all the time - these days [OSQ] Very much [facility] Do you belong to any clubs or organizations such as Waff[employer] groups, unions, fraternal or athletic groups, or school groups? Yes [facility] Do you feel stress - tense, restless, nervous, or anxious, or unable to sleep at night because your mind is troubled all the time - these days [OSQ] To some extent [facility] History of tobacco use Passive smoker [facility] Start: 01-25-2025 Tobacco smoking status NHIS Never smoked tobacco (finding) [facility] Start: 01-25-2025 Sex Female (finding) [facility] Functional Status Date Assessment Result Facility 04-13-2015 Are you deaf, or do you have serious difficulty hearing No 04/13/2015 8:51 AM Melany Sue RN No [facility] 04-13-2015 Are you blind, or do you have serious difficulty seeing, even when wearing glasses No 04/13/2015 8:51 AM Melany Sue RN No [facility] 04-13-2015 Do you have serious difficulty walking or climbing stairs No 04/13/2015 8:51 AM Melany Sue RN No [facility] 04-13-2015 Do you have difficul ty dressing or bathing No 04/13/2015 8:51 AM Melany Sue RN No [facility] 04-13-2015 Because of a physica l, mental, or emotional condition, do you have difficulty doing errands alone such as visiting a physician's office or shopping No 04/13/2015 8:51 AM Melany Sue RN No [facility] Mental Status Date Assessment Result Facility 12-25-2023 Cognitive function Level Of Cons ciousness Awake;Alert;Appropriate;Fol lows Commands [facility] Work Phone: 04-13-2015 Because of a physica l, mental, or emotional condition, do you have serious difficulty concentrating, remembering, or making decisions No 04/13/2015 8:51 AM Melany Sue RN No [facility] Clinical Notes 02-16-2017 to 04-12-2025 José Mary Mammo Tech - 04/12/2025 2:50 PM EDT Note Date & Type Note Facility 04-12-2025 History of Present illness Narrative Radiology Service Progress Note PATIENT NAME: Antonia SHORTN: [id number] DATE OF SERVICE: April 12, 2025 TIME: [...] PATIENT PRESENTS WITH AN IMPLANTABLE OR ATTACHED INSURANCE EXECUTIVE: No RADIOLOGY DEPARTMENT: Mammography PERIPHERAL IV DATA: Not applicable SIGNED BY: Ke Horta April 12, 2025 3:15 PM documented in this encounter [facility] 04-12-2025 Note HNO ID: [id number] Author: JOSÉ MARY Mammo Tech Service: ? Author Type: Demand Manager Type: Progress Notes Filed: 04/12/2025 15:16 Note [...] PATIENT PRESENTS WITH AN IMPLANTABLE OR ATTACHED INSURANCE EXECUTIVE: No RADIOLOGY DEPARTMENT: Mammography PERIPHERAL IV DATA: Not applicable SIGNED BY: Ke Horta April 12, 2025 3:15 PM [facility] 03-19-2025 Hospital Discharge instructions Patient Education [...] above the level of your heart. Medicines Qzuj-ieo-ldyzhgd medicines such as acetaminophen or ibuprofen can [...] on an injured limb if it hurts. [id number] [employer]. [address] [place] [address]. All rights reserved. This information is not intended as a substitute for professional medical care. Always follow your healthcare professional's instructions. Follow Up Care 03/18/2025 21:31:23 With:KAILA BRANDON DO, Orthopedic Address: [address] [place] [address], [address] [place] [address]- [phone] When:5 to 7 days With:Go to emergency room if symptoms worsen Address:Unknown When:2-4 days With:Follow up with primary care provider Address:Unknown When:2-4 days [facility] 03-18-2025 Note Discharge Instructions Thank you for allowing [facility] to assist you with your healthcare needs. [...] DO, Orthopedic When:Within 5 to 7 days Where:[address] [place] [address], [address] [place] [address]- [phone] Follow Up with Go to emergency room [...] above the level of your heart. Medicines Vuyz-kgt-ewmbmoh medicines such as acetaminophen or ibuprofen can [...] on an injured limb if it hurts. [id number] [employer]. [address] [place] [address]. All rights reserved. This information is not intended as a substitute for professional medical care. Always follow your healthcare professional's instructions. Additional Information VACCINATE! IT SAVES LIVES! Members of the community who have not yet received the COVID-19 vaccine and would like to receive it can visit one of [facility] vaccine clinics. There are many vaccine clinic locations within the [facility]. For locations and available times, please visit [email or web address] [email or web address] It is important to note that some COVID mobile vaccine clinics are held outdoors and may be canceled in rainy or stormy conditions. To learn more about pediatric vaccinations (ages 5-11), we invite you to visit the [facility] webpage. [email or web address] To learn more about the COVID-19 vaccine, we invite you to visit the CDC website for a list of frequently asked questions. https://www.cdc.gov/coronavirus/ 2019-ncov/vaccines/faq.html [facility] Patient Portal Access Instructions: Stay connected with your healthcare team and access your personal medical information anytime with the [facility] Patient Portal. If you would like a full copy of your medical records please contact the [facility] Medical Records Department Saturday through Saturday between 8a.m. and 4:30p.m. Please follow the directions below to access the portal: 1.Access the email account you provided upon registration to the [facility].2.Look for an invitation email from [facility].3.Open the email and access the invitation link: Accept Invitation to [facility] [employer]4.Fill in the required gibbons to create your account. Sign into [email or web address] with your username and password that you [...] you will allow to register on the [facility] Patient Portal for access to your information. You can also access the [facility] Patient Portal on the [employer]. Simply click on Health Records under Health Data and then click on the [employer] logo. HOW TO SAFELY DISPOSE OF PRESCRIPTION [...] Call your local pharmacy or go to [email or web address] to find one close to you.3.Make use of household items: Use cat litter or old coffee grounds to dispose medications if other options are not available. Mix your drugs with these household products, seal them in an airtight container and throw it into the garbage. Call [facility]: [phone] to be sure your drugs can be [...] aware that I should contact my doctor. Patient/Athletic Trainer Signature: Date/Time: Relationship to Patient: Witness Name/Signature: Date/Time: [facility] 03-18-2025 Note Exam Date Time Procedure Performing Provider Status 03/18/25 11:06 PM XR Hand and Wrist 6 Views Left KARYN FIERRO DO; Auth (Verified) [id number] ORIGINAL EXAMINATION: 6 XRAY VIEWS OF THE [...] Sign Date: 03/18/2025 11:16:49 PM Ordering Provider: [facility]06-06-2025 NoteHNO ID: [id number] Author: JUANA CRUZ APRN.BUILDING SUPERINTENDENT Service: ? Author Type: Nurse Practitioner Type: [...] Living4 SAB2 IAB0 Ectopic0 Multiple0 Live Births4 [place] History LMP: 02/18/2025 (Exact Date), Perimenopausal Age at Menarche: 15 Age at First : Age at Menopause: Buttonholer History Comments: Sexual Activity: Yes; Male Contraception: [...] discussed with the Patient or Patient's Authorized Athletic Trainer. As applicable, any other physician, advance practice provider, medical student, or other health professional student that will be observing or involved in the sensitive examination for educational or training purposes was discussed with the Patient or Authorized Athletic Trainer. The Patient or Authorized Athletic Trainer has agreed to proceed with the sensitive [...] external genitalia normal, normal Bartholin's glands, urethra, Marrowbone's glands, no vulvar lesions, no cervical lesions, [...] mammogram for malig (more content not included)... [facility]06-06-2025 History of Present illness Narrative* Juana Cruz, ERIK.BUILDING SUPERINTENDENT - 03/05/2025 3:39 PM EDT Juliane is [...] Living4 SAB2 IAB0 Ectopic0 Multiple0 Live Births4 [place] History LMP: 02/18/2025 (Exact Date), Perimenopausal Age at Menarche: 15 Age at First : Age at Menopause: Buttonholer History Comments: Sexual Activity: Yes; Male Contraception: [...] discussed with the Patient or Patient's Authorized Athletic Trainer. As applicable, any other physician, advance practice provider, medical student, or other health professional student that will be observing or involved in the sensitive examination for educational or training purposes was discussed with the Patient or Authorized Athletic Trainer. The Patient or Authorized Athletic Trainer has agreed to proceed with the sensitive [...] external genitalia normal, normal Bartholin's glands, urethra, Marrowbone's glands, no vulvar lesions, no cervical lesions, [...] results. Juana Cruz APRN.CNP [facility] NoteHNO ID: [id number] Author: BARBARA CORONADO APRN.CNP Service: ? Author Type: Nurse Practitioner Type: Progress Notes Filed: 02/23/2025 15:07 Note Text: CC: Patient presents with: Follow Up: 6 months Ear Pain: Bilateral ear pain x 1 week HPI Recording using [employer] software for draft documentation of the visit was discussed with the patient/authorized member service representative; all questions welcomed and answered. Patient/authorized member service representative agreed to proceed Juliane is a [...] cervical adenopathy. Neurological: Mental (more content not included)...[facility]05-27-2025 History of Present illness Narrative* Barbara Coronado, RECENTERER.BUILDING SUPERINTENDENT - 02/23/2025 3:02 PM EDT CC: Patient presents with: Follow Up: 6 months Ear Pain: Bilateral ear pain x 1 week HPI Recording using [employer] software for draft documentation of the visit was discussed with the patient/authorized member service representative; all questions welcomed and answered. Patient/authorized member service representative agreed to proceed Juliane is a 49-year-old female with a history of asthma, HTN, and migraines, presenting for a routine follow-up and albuterol refill. Juliane uses albuterol as needed for asthma, primarily during spring and summer due to allergies. Shereports using the inhaler once or twice a day when outside for extended periods, such as during [place]. She also takes Claritin for allergies, which [...] Advised patient to schedule the mammogram through [facility] in March or April to ensure insurance coverage. Prescription instructions reviewed with patient as applicable. Potential red flag symptoms discussed with the patient. Reviewed appropriate action plan to take if red flag symptoms occur. Patient agreeable to treatment plan. Barbara Coronado APRN.MODESTA [facility] Instructions* Patient Instructions* Barbara Coronado APRN.MODESTA - [...] in March. You can schedule this through [facility], but please ensure it is scheduled for [...] please let us know. [facility] Radiology Diagnostic study note [facility] [address] [place] [address] [id number] Ankle min 3 Views MR#: [id number] Acct: [id number] Name: ANTONIA CORONADO Rep #: [id number] : 1975 F 49 From: Sammie Sánchez MD PCP: Dr. Fransisco Angel MD Status: R ER Study:Ankle min 3 Views Date of Exam: Exam# [id number] Ordering Dr: Wai Donnelly DO PROCEDURE: ANKLE [...] Donnelly DO; Dr. Fransisco Angel MD ~ Agency Cashier: Signed [facility]04-04-2025 NoteHNO ID: [id number] Author: BARBARA CORONADO APRN.CNP Service: ? Author Type: Nurse Practitioner Type: Progress Notes Filed: 01/01/2025 09:37 Note Text: CC: Patient presents with: Headache: X 3 days HPI The patient consented to the use of ambient [employer] software for draft documentation of the visit consistent with [facility]?s Notice of Privacy Practices. Juliane is a [...] Pupils are equal, roun (more content not included)...[facility]04-04-2025 History of Present illness Narrative* Barbara Coronado, RECENTERER.[facility] - 01/01/2025 8:11 AM EDT CC: Patient presents with: Headache: X 3 days HPI The patient consented to the use of ambient [employer] software for draft documentation of the visit consistent with [facility] s Notice of Privacy Practices. Juliane is [...] Level: 4 - Moderate documented [facility] Instructions* Patient Instructions* Barbara Coronado APRN.CNP - 01/01/2025 8:06 AM EDT We discussed your migraine: - I administered a Toradol injection today to help alleviate your headache. While it may not completely resolve the pain, it should make you more comfortable until you can take your Imitrex. - I refilled your Imitrex prescription, which you can sampler pickup at [facility] in [place]. Please take it as soon as you [...] further questions or concerns. [facility] History of Present illness Narrative* Yanelis Yadav [...] PATIENT PRESENTS WITH AN IMPLANTABLE OR ATTACHED INSURANCE EXECUTIVE: No RADIOLOGY DEPARTMENT: General X-ray: Exam(s) Completed: Chest X-Ray PERIPHERAL IV DATA: Not applicable SIGNED BY: RT Faustina(R) September 07, 2024 3:50 PM documented in [facility]Cl[facility]12-[facility]-2024 NoteHNO ID: [id number] Author: YANELIS YADAV RT(R) Service: Radiology Author [...] PATIENT PRESENTS WITH AN IMPLANTABLE OR ATTACHED INSURANCE EXECUTIVE: No RADIOLOGY DEPARTMENT: General X-ray: Exam(s) Completed: Chest X-Ray PERIPHERAL IV DATA: Not applicable SIGNED BY: RT Faustina(R) September 07, 2024 3:50 [facility]12-09-2024 NoteHNO ID: [id number] Author: ZOE RAYA APRN.BUILDING SUPERINTENDENT Service: ? Author Type: Nurse Practitioner Type: [...] history is provided by the patient. No photographer's model was used. Cough This is a new [...] LMP 02/18/2024 (Exact Date (more content not included)...[facility]12-09-2024 History of Present illness Narrative* Zoe Raya, ERIK.BUILDING SUPERINTENDENT - 09/07/2024 3:44 PM EST This note [...] history is provided by the patient. No photographer's model was used. Cough This is a new [...] RX Prednisone F/U with PCP Zoe Raya APRN.BUILDING SUPERINTENDENT documented [facility]Cl[facility] Instructions* Patient Instructions* Barbara Coronado APRN.MODESTA - 08/24/2024 2:47 PM EST Call office in one week if respiratory symptoms don't improve or sooner if worsening [facility]Cl[facility] History of Present illness Narrative* Barbara Coronado APRN.CNP - 08/24/2024 2:35 PM EST CC: [...] Left Ear: Tympanic membrane normal. Mouth/Throat: Lips: [place]. Mouth: Mucous membranes are moist. Pharynx: Oropharynx [...] Patient agreeable to treatment plan. Barbara Coronado APRN.BUILDING SUPERINTENDENT documented in [facility] encounterCl[facility]11-[facility]-2024 NoteHNO ID: [id number] Author: BARBARA CORONADO APRN.BUILDING SUPERINTENDENT Service: ? Author Type: Nurse Practitioner Type: [...] Left Ear: Tympanic membrane normal. Mouth/Throat: Lips: [place]. Mouth: Mucous membranes are moist. Pharynx: Oropharynx [...] season) due on 05/31/2024 (more content not included)...[facility]08-02-2024 NoteHNO ID: [id number] Author: ZOE RAYA APRN.BUILDING SUPERINTENDENT Service: ? Author Type: Nurse Practitioner Type: [...] history is provided by the patient. No photographer's model was used. Sore Throat This is a [...] Ear canal and ext (more content not included)...[facility]08-02-[facility] History of Present illness Narrative* Zoe Raya, ERIK.BUILDING SUPERINTENDENT - 05/01/2024 6:11 PM EDT This note [...] history is provided by the patient. No photographer's model was used. Sore Throat This is a [...] sooner if worsening of symptoms Zoe Raya APRN.BUILDING SUPERINTENDENT documented [facility] encounterCl[facility]07-13-[facility] Note* Letter - Coordinator, Mammography - 04/11/2024 6:48 PM EDT April 13, 2024 PID: [id number] Antonia Coronado [address] [place] [address] [place] [address] Dear Ms. Coronado, We are pleased to [...] report will be kept on file at [facility] as part of your permanent medical record and are available for your continuing care. Thank you for allowing us to help in meeting your health care needs. Sincerely, Dr. Reina Interpreting Radiologist [facility] (Normal over 40) [facility]07-13-2024 Miscellaneous Notes* Letter - Coordinator, Mammography - 04/11/2024 6:48 PM EDT April 13, 2024 PID: [id number] Antonia Coronado [address] [place] [address] Dear Ms. Coronado, We are pleased to [...] report will be kept on file at [facility] as part of your permanent medical record and are available for your continuing care. Thank you for allowing us to help in meeting your health care needs. Sincerely, Dr. Reina Interpreting Radiologist [facility] (Normal over 40) documented in this encounterCl[place] [facility]07-12-2024 History of Present illness Narrative* José Mary [...] PATIENT PRESENTS WITH AN IMPLANTABLE OR ATTACHED INSURANCE EXECUTIVE: No RADIOLOGY DEPARTMENT: Mammography PERIPHERAL IV DATA: Not applicable SIGNED BY: Monica Hortao Umair April 10, 2024 2:50 PM documented in this encounterCl[facility]06-04-2024 History of Present illness Narrative* Juana Cruz APRN.BUILDING SUPERINTENDENT - 03/03/2024 12:56 PM EDT Stockfeed Miller offered: Patient declines. Juliane is a 48 year old who presents for an annual gynecologic exam without complaints. Menses: cycles every 2-3 months lasting about 3 days Contraception: tubal sterilization HPV vaccine: No Last Pap: 12/14/2022 normal HPV: 12/11/2022 negative History of abnormal pap: No Last mammogram: 2022normal Sexually active: Yes OB History T1 L4 SAB2 IAB0 Ectopic0 Multiple0 Live Births4 [place] History LMP: 02/18/2024 (Exact Date), Perimenopausal Age at Menarche: Age at First : Age at Menopause: [place]er History Comments: Sexual Activity: Yes; Male Contraception: [...] external genitalia normal, normal Bartholin's glands, urethra, Marrowbone's glands, no vulvar lesions, no cervical lesions, [...] needed Juana Cruz APRN.MODESTA documented [facility] encounterCl[facility]05[facility] History of Present illness Narrative* Sonny, Barbara [...] plan. Barbara Coronado APRN.MODESTA documented [facility] encounterCl[facility]02[facility] History of Present illness Narrative* Barbara Coronado [...] Patient agreeable to treatment plan Barbara Coronado APRN.BUILDING SUPERINTENDENT documented in [facility] encounterCl[facility]10-04-2023 Miscellaneous Notes* Telephone Encounter - Sae Cross Ma - 07/03/2023 8:06 AM EDT Pt notified via [employer] to call and schedule. * Telephone Encounter [...] when she can schedule. documented in [facility] encounterCl[facility]09-[facility]23 History of Present illness Narrative* Haydee Gramajo PA-C - 06/12/2023 11:44 AM EDT This note was created using [employer]. Subjective Antonia Coronado is a 47 year [...] CAPSULE Haydee Gramajo PA-C documented in [facility] encounterCl[facility]09-[facility]23 History of Present illness Narrative* Merline Trevino [...] 12, 2023 10:42 AM documented in [facility] encounterCl[facility]08-16-2023 History of Present illness Narrative* Barbara Gracia APRN.BUILDING SUPERINTENDENT - 05/15/2023 4:05 PM EDT CC: Patient [...] plan. Barbara Gracia APRN.CNP documented in this encounterCl[facility]06-06-2023 Miscellaneous Notes* Telephone Encounter - Faith Schrader [...] you. Faith Schrader LPN documented in this encounterCl[facility]06-05-2023 Miscellaneous Notes* Telephone Encounter - Paige Tan - 03/04/2023 10:34 AM EDT POPULATION HEALTH NAVIGATION OUTREACH Action/I 1st call-LVM and [employer] message for patient regarding ORTHO consult. Patient Identified by Name and : NO Outreach Outcome/Action Unable to reach patient: Left message [employer] message sent Did you use a PCP flex slot to schedule this appointment? N/A Reason for Outreach Care Gap or Scheduling/Wellness visits Payer: Payor: [place] MEDICAID / Plan: [facility] MEDICAID / Product Type: Medicaid / Care Gap Reviewed:: Specialty Scheduling Reminder: Reminder note to check Health Maintenance for items below Health Maintenance items due: HEPATITIS B(1 of 3 - 3-dose series) Never done Navigation Signature: Paige Tan March 04, 2023 10:35 AM documented in this encounterCl[facility]05-12-2023 Miscellaneous Notes* Telephone Encounter - Scarlett Dang LPN - 02/08/2023 9:47 AM EDT Left a detailed message at [facility] regarding knee brace on hold until MRI complete. * Telephone Encounter - Angle Nieto APRN.BUILDING SUPERINTENDENT - 02/08/2023 9:36 AM EDT Okay, we [...] - 02/04/2023 2:34 PM EDT Loretta from [facility] calling states has faxed over a paper with a few choices for pts brace the kind doctor would be wanting. Says not to worry at all about size she has measured her. Asking if this was received? She faxed it over on My then again on this past Saturday. She is asking to please let her know. documented in this encounterCl[facility]05-[facility]23 History of Present illness Narrative* Angle Nieto APRN.BUILDING SUPERINTENDENT - 02/01/2023 9:03 AM EDT SUBJECTIVE Antonia [...] get seen with [facility]o then try [facility]. Off work at least until seen with ortho. - CONSULT TO ORTHOPAEDICS - HYDROCODONE 5 MG-ACETAMINOPHEN 325 MG TABLET 2. Acute pain of right knee - ICD9: 719.46, ICD10: M25.561 See above. PDMP website checked and validated. All prescriptions have been APPROPRIATELY filled. No suspiciousactivity was identified. 02/01/2023 by Angle Nieto APRN.BUILDING SUPERINTENDENT OARRS reviewed and script is appropriate, non-opioids [...] 5 MG-ACETAMINOPHEN 325 MG TABLET Angle Nieto APRN.BUILDING SUPERINTENDENT Portions of this note have been entered [...] appointment.. Angle Nieto APRN-MODESTA documented in this encounterCl[facility]05-[facility]23 Miscellaneous Notes* Telephone Encounter - Angle Nieto APRN.CNP - 02/01/2023 8:29 AM EDT Discuss at appt today documented in this encounterCl[facility]04-28-[facility]23 History of Present illness Narrative* Merline Trevino, [...] 25, 2023 3:37 PM documented in this encounterCl[facility]04-28-2023 History of Present illness Narrative* Angle Nieto APRN.BUILDING SUPERINTENDENT - 01/25/2023 2:54 PM EDT SUBJECTIVE Antonia Coronado is a 47 year old female here today for acute concerns. Chief Complaint Patient presents with: Knee Injury: WC right knee 01/24/2023 HPI Antonia Coronado is an 47 year old female presents today for right knee pain. She was at work yesterday, works at [employer]. Stepped up on a metal bar to [...] appointment.. Angle Nieto APRN-MODESTA documented in [facility] encounterCl[facility]03-[facility]23 History of Present illness Narrative* Fransisco Angel MD - 12/14/2022 12:59 PM EDT This note was created using [employer]. Subjective Patient presents with: Recheck: MRI results [...] satisfaction. Fransisco Angel MD documented in this encounterCl[facility]03-13-2023 History of Present illness Narrative* Patricia Gabriel, [...] Exam(s) Completed: Body: Liver (routine) SIGNATURE: RT Vida(R) PATIENT NAME: Antonia Coronado DATE: December 10, 2022 TIME: 10:02 AM documented in this encounterCl[facility]03-11-2023 Miscellaneous Notes* Telephone Encounter - Marjorie Cardenas LPN - 12/08/2022 10:55 AM EST Phoned patient and left detailed message of notes below from Dr Angel on voicemail. Advised to have tour bus driver since will be taking the [...] claustrophobia/Anxiety due to closed MRI. Pharmacy is [facility]. Please review and advise, Nita Cardozo RN documented in this encounterCl[facility]02-16-2023 Miscellaneous Notes* Letter - Mammography Coordinator - 11/15/2022 12:25 PM EST November 16, 2022 PID: [id number] Antonia Coronado [address] [place] [address] Dear Ms. Coronado, We are pleased to [...] report will be kept on file at [facility] as part of your permanent medical record and are available for your continuing care. Thank you for allowing us to help in meeting your health care needs. Sincerely, Dr. Rhodes Interpreting Radiologist [facility] (Normal over 40) documented in this encounterCl[facility]02-16-2023 History of Present illness Narrative* Lizeth Jara, [...] 15, 2022 10:00 AM documented in this encounterCl[facility]02-15-2023 History of Present illness Narrative* Fransisco Angel MD - 11/14/2022 11:27 AM EST This note was created using [employer]. Subjective Antonia Coronado is a 46 year [...] 6 MO - 64 YRS IM - [employer] COVID-19 BIVALENT BOOSTER VACCINE, AGE 12+ YR [...] cancer. Fransisco Angel MD documented in this encounterCl[facility]02-14-2023 NoteHNO ID: [id number] Author: Lyndon Velasquez MD Service: ? Author Type: Physician Type: Progress Notes Filed: 11/13/2022 2:12 PM Note Text: [facility] ESTABLISHED PATIENT FOLLOW-UP NOTE PATIENT: [...] (5) Other: . Constitutional: (more content not included)...[facility] 11-13-2022 History of Present illness Narrative* Lyndon Velasquez MD - 11/13/2022 1:45 PM EST [facility] ESTABLISHED PATIENT FOLLOW-UP NOTE PATIENT: [...] Velasquez MD Staff Urologist documented in this encounterCl[facility]02-07-2023 History of Present illness Narrative* Reef Sandy [...] 2022 TIME: 10:35 AM documented in this encounterCl[facility]01-24-2023 NoteHNO ID: [id number] Author: Lyndon Velasquez MD Service: ? Author Type: Physician Type: Progress Notes Filed: 10/23/2022 11:24 AM Note Text: [facility] NEW CONSULT HISTORY AND PHYSICAL [...] dose.No IV ac (more content not included)... [facility]01-24-[facility] History of Present illness Narrative* Lyndon Velasquez MD - 10/23/2022 11:00 AM EST [facility] NEW CONSULT HISTORY AND PHYSICAL [...] Velasquez MD Staff Urologist documented in this encounterCl[facility]01-13-2023 History of Present illness Narrative* Eliana Blake [...] 12, 2022 1:59 PM documented in this encounterCl[facility]01-[facility]-2023 History of Present illness Narrative* Angle Nieto APRN.BUILDING SUPERINTENDENT - 10/03/2022 9:35 AM EST SUBJECTIVE Antonia [...] appointment.. Angle Nieto APRN-MODESTA documented in this encounterCl[facility]01-04-2023 Instructions* Patient Instructions* Scarlett Dang LPN - [...] treated. A physician, nurse practitioner or physician assistant printer floor covering may treat with a short course of [...] women if symptoms resolve. [facility] Instructions* Patient Instructions* Juliane Rosa APRN.[facility] - 09/12/2022 10:40 AM EST ASSESSMENT/PLAN: [...] Discussed expected course of illness Juliane Rosa APRN.BUILDING SUPERINTENDENT Treatment for Viral Upper Respiratory Tract Infections [...] fluids help open respiratory and sinus passages Johnston Nasal Kaycee may offer relief of nasal and head [...] worse rather than better [facility] History of Present illness Narrative* Juliane Rosa [...] Status: She is alert. [facility] Miscellaneous Notes* Telephone Encounter - [facility] [...] pharmacy. [facility] Instructions* Patient Instructions* Barbara Gracia APRN.[facility]STA - [...] your arms or legs. documented [facility] History of Present illness Narrative* Barbara Gracia [...] plan. Barbara Gracia APRN.CNP documented [facility] encounterCl[facility]06[facility] History of Present illness Narrative* Fransisco Angel MD - 03/23/2022 4:18 PM EDT This note was created using FieldSolutionster. Subjective Patient presents with: [facility] Antonia Coronado was here for above. [...] Date(s) Administered COVID-19 vaccine, age 12+ yr (Myfacepage - PURPLE TOP) 02/14/2021 03/07/2021 Tdap (Age [...] <130/80 Wilson Angel, MD documented [facility] encounter[facility] History of Present illness Narrative* Yanelis Yadav [...] 19, 2022 2:35 PM documented [facility] encounterCl[facility] History of Present illness Narrative* Fransisco Angel MD - 02/19/2022 2:15 PM EDT This note was created using SkyBullsriter. Subjective Antonia Coronado is a 46 year [...] worse. Fransisco Angel MD documented [facility] encounterCl[facility]05[facility] History of Present illness Narrative* Barbara Older, RECENTERER.BUILDING SUPERINTENDENT - 02/03/2022 1:58 PM EDT CC: Patient [...] plan. Barbara Gracia APRN.CNP documented [facility] encounterCl[facility] History of Past illness Narrative* Problem Noted [...] of this encounter (statuses as of 02/03/2022) [facility] Narrative* Problem Noted [...] of this encounter (statuses as of 02/19/2022) [facility] Narrative* Problem Noted [...] of this encounter (statuses as of 03/25/2022) [facility] Narrative* Problem Noted [...] of this encounter (statuses as of 05/23/2022) [facility] Narrative* Problem Noted [...] of this encounter (statuses as of 06/19/2022) [facility] Narrative* Problem Noted [...] of this encounter (statuses as of 07/24/2022) [facility] Narrative* Problem Noted [...] of this encounter (statuses as of 09/12/2022) [facility] Narrative* Problem Noted [...] of this encounter (statuses as of 10/04/2022) [facility] Narrative* Problem Noted [...] of this encounter (statuses as of 10/23/2022) [facility] Narrative* Problem Noted [...] of this encounter (statuses as of 11/13/2022) [facility] Narrative* Problem Noted [...] of this encounter (statuses as of 11/15/2022) [facility] Narrative* Problem Noted [...] of this encounter (statuses as of 11/17/2022) [facility] Narrative* Problem Noted [...] of this encounter (statuses as of 12/08/2022) [facility] Narrative* Problem Noted [...] of this encounter (statuses as of 12/14/2022) [facility] Narrative* Problem Noted [...] of this encounter (statuses as of 01/25/2023) [facility] N[facility]ative* Problem Noted [...] of this encounter (statuses as of 02/01/2023) [facility] Narrative* Problem Noted [...] of this encounter (statuses as of 02/01/2023) [facility] Narrative* Problem Noted [...] of this encounter (statuses as of 02/08/2023) [facility] Narrative* Problem Noted [...] of this encounter (statuses as of 03/04/2023) [facility] Narrative* Problem Noted [...] of this encounter (statuses as of 03/06/2023) [facility] N[facility]* Problem Noted [...] of this encounter (statuses as of 05/16/2023) [facility] N[facility]ative* Problem Noted [...] of this encounter (statuses as of 06/12/2023) [facility] N[facility]ative* Problem Noted [...] of this encounter (statuses as of 07/04/2023) [facility] Narrative* Problem Noted [...] of this encounter (statuses as of 08/04/2023) [facility] Narrative* Problem Noted [...] of this encounter (statuses as of 08/04/2023) [facility] Narrative* Problem Noted [...] of this encounter (statuses as of 08/04/2023) [facility] Narrative* Problem Noted [...] of this encounter (statuses as of 11/20/2023) [facility] Narrative* Problem Noted [...] of this encounter (statuses as of 12/03/2023) [facility] Narrative* Problem Noted [...] of this encounter (statuses as of 12/23/2023) [facility] No data available for this section [facility] Evaluation note* Diagnosis Suspected COVID-19 virus infection- Primary [facility] encounter [facility]* Diagnosis Bronchospasm- Primary Acute bronchospasm COVID-19 [facility]* Diagnosis Routine medical exam- Primary Routine [...] diagnosis of hypertension documented in this encounter [facility] noteNo assessment information availableWMount St. [facility] Work Phone: Evaluation note* Diagnosis Acute intractable headache, unspecified headache type- Primary [facility] encounter [facility]* Diagnosis Elevated C-reactive protein (CRP)- Primary [facility]* Diagnosis Sore throat- Primary Acute pharyngitis Exposure to strep throat Contact with or exposure to other communicable diseases Viral URI with cough Acute upper respiratory infections of unspecified site [facility]* Diagnosis Acute left-sided low back pain without sciatica- Primary History of kidney stones Personal history of urinary calculi Leukocytes in urine Other cells and casts in urine [facility] encounter [facility]* Diagnosis Left flank pain- Primary Abdominal pain, unspecified site Right nephrolithiasis Renal cyst, left Unspecified congenital cystic kidney disease Abnormal urinalysis Other nonspecific finding on examination of urine Other hydronephrosis [facility]* Diagnosis Right nephrolithiasis- Primary Renal cyst, left Unspecified congenital cystic kidney disease Hepatic lesion Other specified disorders of liver [facility] Liver lesion- Primary Other [...] of gastrointestinal tract [facility] Diagnosis Claustrophobia- Primary Other isolated or specific phobias [facility]* Diagnosis Hemangioma of liver- Primary 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 [facility] Diagnosis Acute pain of right knee- Primary Positive Priscilla test of right knee, initial encounter [facility] Diagnosis Positive Priscilla test of right knee, initial encounter- Primary Acute pain of right knee [facility] Diagnosis Panic attacks- Primary Panic [...] 40 Morbid obesity [facility] Diagnosis Suspected COVID-19 virus infection- Primary [facility] Diagnosis Liver lesion Other specified disorders of liver [facility] Diagnosis Encounter for screening mammogram for malignant neoplasm of breast Other screening mammogram [facility] Diagnosis Other hydronephrosis [facility]* Diagnosis History of kidney stones Personal history of urinary calculi [facility] Diagnosis Primary hypertension- Primary Unspecified essential hypertension [facility] Diagnosis Hyperglycemia- Primary Other abnormal glucose [facility] Encounter for screening mammogram for breast cancer [facility]* Diagnosis Primary hypertension- Primary Unspecified essential hypertension [facility]* Diagnosis Encounter for gynecological examination (general) (routine) without abnormal findings- Primary Encounter for screening mammogram for breast cancer documented [facility] encounter [facility]* Diagnosis URI, acute- Primary Acute upper respiratory infections of unspecified site [facility]* Diagnosis Suspected COVID-19 virus infection documented [facility]* Diagnosis Acute pain of right knee Positive Priscilla test of right knee, initial encounter documented [facility] this encounter [facility]* Diagnosis Bronchospasm Acute bronchospasm documented [facility]* Diagnosis Viral URI with cough- Primary Acute upper respiratory infections of unspecified site Primary hypertension Unspecified essential hypertension Hyperglycemia Other abnormal glucose Obesity, Class III, BMI >= 40 Morbid obesity Anxiety and depression Dysthymic disorder documented in this encounter [facility] note* Diagnosis Acute cough- Primary Lower respiratory infection Other diseases of respiratory system, not elsewhere classified Acute cough [facility] encounter [facility]* Diagnosis Acute cough documented [facility]* Diagnosis Migraine without aura, not intractable, with status migrainosus- Primary Nausea and vomiting, unspecified vomiting type documented [facility]* Diagnosis Primary hypertension- Primary Unspecified essential hypertension Anxiety in acute stress reaction Predominant disturbance of emotions Mild intermittent extrinsic asthma without complication (HCC) Seasonal allergic rhinitis, unspecified trigger Migraine without aura and without status migrainosus, not intractable Migraine without aura, without mention of intractable migraine without mention of status migrainosus Encounter for screening mammogram for breast cancer documented [facility] encounter [facility]* Diagnosis Encounter for gynecological examination (general) (routine) without abnormal findings- Primary Encounter for screening mammogram for malignant neoplasm of breast Other screening mammogram Abnormal uterine bleeding (AUB) documented [facility] this encounter [facility]* Diagnosis Encounter for screening mammogram for malignant neoplasm of breast Other screening mammogram [facility] Additional Instructions X-ray negative for fracture or dislocation. Your hardware on your foot intact. Aircast crutches for support weight-bear as tolerated. Follow-up with Dr. Pinto.[facility] Work Phone: Reason for referral (narrative)* Diagnostic Procedure Only (Routine) - Closed Specialty Diagnoses / Procedures Referred By Shanique t Referred To Contact [facility] Diagnoses Encounter for screening mammogram for malignant neoplasm of breast Procedures RUFINO SCREENING SCREENING MAMMOGRAPHY BI 2-VIEW BREAST INC Fransisco Pearson MD [address] [place] [address] [facility] [address] [place] [address] Referral ID Status Reason Start Date Expiration Date V isits Requested Visits Authorized [id number] Closed Auto-Generate d Referral 03/23/2022 04/22/2023 1 1 [facility] for referral (narrative)* Diagnostic Procedure Only (Routine) - Closed Specialty Diagnoses / Procedures Referred By Shanique ugalde Referred To Contact US IMAGING Diagnoses History of kidney stones Procedures US KIDNEY/BLADDER US RETROPERITONEAL REAL TIME W/IMAGE COMPLETE Angle Nieto APRN.CNP [address] [place] [address] [facility]95 Referral ID Status Reason Start Date Expiration Date V isits Requested Visits Authorized [id number] Closed Auto-Generate d Referral 10/05/2022 11/04/2023 1 1 [facility] for referral (narrative)* Diagnostic Procedure Only (Routine) - Pending Review Specialty Diagnoses / Procedures Referred By Shanique t Referred To Contact BR IMAG[facility] Diagnoses Encounter for screening mammogram for breast cancer Procedures RUFINO SCREENING SCREENING MAMMOGRAPHY BI 2-VIEW BREAST INC Fransisco Pearson MD [address] [place] [address] [facility] [address] [place] [address] Referral ID Status Reason Start Date Expiration Date Visits Requested Visits Authorized [id number] Pending Review Auto-Generat ed Referral 2023 01/16/2025 1 1 [facility] for referral (narrative)* Diagnostic Procedure Only (Routine) - Authorized Specialty Diagnoses / Procedures Referred By Shanique t Referred To Contact BR IMAGING Diagnoses Encounter for screening mammogram for breast cancer Procedures RUFINO SCREENING SCREENING MAMMOGRAPHY BI 2-VIEW BREAST INC CAD Juana Cruz APRN.CNP [address] [place] [address] [facility] [address] [place] [address] Referral ID Status Reason Start Date Expiration Date Visits Requested Visits Authorized [id number] Authorized Auto-Generat ed Referral 03/03/2024 04/02/2025 1 1 [facility] for referral (narrative)* Diagnostic Procedure Only (Routine) - Closed Specialty Diagnoses / Procedures Referred By Shanique ugalde Referred To Contact XR IMAGING Diagnoses Acute pain of right knee Positive Priscilla test of right knee, initial encounter Procedures XR KNEE GENERAL 4V AP BOTH/PA BOTH/LAT/MERC RIGHT RADIOLOGIC EXAM KNEE COMPLETE 4/MORE VIEWS Angle Nieto APRN.CNP [address] [place] [address] [place] [address] Referral ID Status Reason Start Date Expiration Date V isits Requested Visits Authorized [id number] Closed Auto-Generate d Referral 01/25/2023 02/24/2024 1 1 [facility] for referral (narrative)No reason for referral information availableWMount St. [facility] Work Phone: Reason for visit Narrative* Diagnostic Procedure Only (Routine) - Closed Specialty Diagnoses / Procedures Referred By Shanique ugalde Referred To Contact BR IMAGING Diagnoses Encounter for screening mammogram for malignant neoplasm of breast Procedures RUFINO SCREENING SCREENING MAMMOGRAPHY BI 2-VIEW BREAST INC CAD Fransisco Angel MD [address] [place] [address] Br Imaging [address] [place] [address] Referral ID Status Reason Start Date Expiration Date V isits Requested Visits Authorized [id number] Closed Auto-Generate d Referral 03/23/2022 04/22/2023 1 1 [facility] for visit Narrative* Diagnostic Procedure Only (Routine) - Closed Specialty Diagnoses / Procedures Referred By Contac t Referred To Contact US IMAGING Diagnoses History of kidney stones Procedures US KIDNEY/BLADDER US RETROPERITONEAL REAL TIME W/IMAGE COMPLETE Angle Nieto APRN.BUILDING SUPERINTENDENT [address] [place] [address] [place] [address] Referral ID Status Reason Start Date Expiration Date V isits Requested Visits Authorized [id number] Closed Auto-Generate d Referral 10/05/2022 11/04/2023 1 1 [facility] for visit Narrative* Diagnostic Procedure Only (Routine) - Closed Specialty Diagnoses / Procedures Referred By Contac t Referred To Contact BR IMAGING Diagnoses Encounter for screening mammogram for breast cancer Procedures RUFINO SCREENING SCREENING MAMMOGRAPHY BI 2-VIEW BREAST INC CAD Juana Cruz, RECENTERER.BUILDING SUPERINTENDENT [address] [address] [facility] [address] [place] [address] Referral ID Status Reason Start Date Expiration Date V isits Requested Visits Authorized [id number] Closed Auto-Generate d Referral 03/03/2024 04/02/2025 1 1 [facility] for visit Narrative* Diagnostic Procedure Only (Routine) - Closed Specialty Diagnoses / Procedures Referred By Contac t Referred To Contact XR IMAGING Diagnoses Acute pain of right knee Positive Priscilla test of right knee, initial encounter Procedures XR KNEE GENERAL 4V AP BOTH/PA BOTH/LAT/MERC RIGHT RADIOLOGIC EXAM KNEE COMPLETE 4/MORE VIEWS Angle Nieto APRN.BUILDING SUPERINTENDENT [address] [place] [address] [place] [address] Referral ID Status Reason Start Date Expiration Date V isits Requested Visits Authorized [id number] Closed Auto-Generate d Referral 01/25/2023 02/24/2024 1 1 [facility] Diagnostic Procedure Only (Routine) - Closed Specialty Diagnoses / Procedures Referred By Contac t Referred To Contact BR IMAGING Diagnoses Encounter for screening mammogram for malignant neoplasm of breast Procedures RUFINO SCREENING W HELENE SCREENING DIGITAL BREAST TOMOSYNTHESIS BI SCREENING MAMMOGRAPHY BI 2-VIEW BREAST INC CAD Juana Cruz, RECENTERER.BUILDING SUPERINTENDENT [address] [place] [address] Phone: tel: fax: [facility] [address] [place] [address] Referral ID Status Reason Start Date Expiration Date V isits Requested Visits Authorized [id number] Closed Auto-Generate d Referral 03/05/2025 04/04/2026 1 1 [facility] Infection Onset Date Last Indicated Resolved Time COVID-19 Confirmed 02/04/2022 02/04/2022 Infection Onset Date Last Indicated Resolved Time COVID-19 Rule-Out 09/12/2022 09/12/2022 Reason for Referral Specialty Diagnoses / Procedures Referred By Contac t Referred To Contact Gynecology Diagnoses Screening for cervical cancer Procedures CONSULT TO GYNECOLOGY OFFICE/OUTPATIENT [facility] MDM 60-74 MINUTES Fransisco Angel MD [facility] [place] [address] Referral ID Status Reason Start Date Expiration Date Visits Requested Visits Authorized [id number] Authorized PCP Requested Referral Auto-Generate d Referral 03/23/2022 03/23/2023 1 1 Specialty Diagnoses / Procedures Referred By Contac t Referred To Contact BR IMAGING Diagnoses Encounter for screening mammogram for malignant neoplasm of breast Procedures RUFINO SCREENING SCREENING MAMMOGRAPHY BI 2-VIEW BREAST INC CAD Fransisco Angel MD [address] [place] [address] Br Imaging [address] [place] [address] Referral ID Status Reason Start Date Expiration Date Visits Requested Visits Authorized [id number] Pending Review Auto-Generat ed Referral 03/23/2022 04/22/2023 1 1 Specialty Diagnoses / Procedures Referred By Shanique t Referred To Contact Diagnoses Bronchospasm Fransisco Angel MD [address] [place] [address] Referral ID Status Reason Start Date Expiration Date Visits Re quested Visits Authorized [id number] Closed 1 1 Specialty Diagnoses / Procedures Referred By Contac t Referred To Contact CT IMAGING Diagnoses Other hydronephrosis Procedures CT UROGRAM WO/W IVCON CT ABD & PELVIS W/O CONTRST 1+ BODY REGNS Lyndon Velasquez MD [address] [place] [address] Ct Imaging Referral ID Status Reason Start Date Expiration Date Visits Requested Visits Authorized [id number] Authorized Auto-Generat ed Referral 10/23/2022 11/22/2022 1 1 Specialty Diagnoses / Procedures Referred By Contac t Referred To Contact MR IMAGING Diagnoses Liver lesion Procedures MRI LIVER WO IVCON MRI, ABDOMEN (MRI) Fransisco Angel MD [address] [place], [place] [id number] Mr Imaging Referral ID Status Reason Start Date Expiration Date Visits Requested Visits Authorized [id number] Pending Review Auto-Generat ed Referral 11/14/2022 12/14/2023 1 1 Referral ID Status Reason Start Date Expiration Date Visits Requested Visits Authorized [id number] Authorized PCP Requested Referral Auto-Generate d Referral 11/14/2022 11/14/2023 1 1 Specialty Diagnoses / Procedures Referred By Contac t Referred To Contact MR IMAGING Diagnoses Acute pain of right knee Positive Priscilla test of right knee, initial encounter Procedures MRI KNEE WO IVCON RIGHT MRI ANY JT LOWER EXTREM W/O CONTRAST MATRL Angle Nieto APRN.BUILDING SUPERINTENDENT [address] [place], [place] [id number] Mr Imaging Referral ID Status Reason Start Date Expiration Date Visits Requested Visits Authorized [id number] Pending Review Auto-Generat ed Referral 01/25/2023 02/24/2024 1 1 Specialty Diagnoses / Procedures Referred By Contac t Referred To Contact XR IMAGING Diagnoses Acute pain of right knee Positive Priscilla test of right knee, initial encounter Procedures XR KNEE GENERAL 4V AP BOTH/PA BOTH/LAT/MERC RIGHT RADIOLOGIC EXAM KNEE COMPLETE 4/MORE VIEWS Angle Nieto APRN.BUILDING SUPERINTENDENT [address] [place] [address] Xr Imaging Referral ID Status Reason Start Date Expiration Date V isits Requested Visits Authorized [id number] Closed Auto-Generate d Referral 01/25/2023 02/24/2024 1 1 Specialty Diagnoses / Procedures Referred By Contac t Referred To Contact Orthopedics Diagnoses Positive Priscilla test of right knee, initial encounter Procedures CONSULT TO ORTHOPAEDICS OFFICE/OUTPATIENT [facility] 60-74 MINUTES Angle Nieto RECENTERER.BUILDING SUPERINTENDENT [address] [place] [address] Referral ID Status Reason Start Date Expiration Date Visits Requested Visits Authorized [id number] Authorized PCP Requested Referral 02/01/2023 02/01/2024 1 1 Specialty Diagnoses / Procedures Referred By Contac t Referred To Contact MR IMAGING Diagnoses 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 Hemangioma of liver Procedures MRI LIVER WO/W IVCON MRI ABDOMEN W/O & W/CONTRAST MATERIAL Barbara Gracia APRN.BUILDING SUPERINTENDENT [address] [place] [id number] [place] [address] Referral ID Status Reason Start Date Expiration Date Visits Requested Visits Authorized [id number] Pending Review Auto-Generat ed Referral 05/15/2023 06/13/2024 1 1 Specialty Diagnoses / Procedures Referred By Contac t Referred To Contact MR IMAGING Diagnoses Liver lesion Procedures MRI LIVER WO/W IVCON MRI ABDOMEN W/O & W/CONTRAST MATERIAL Fransisco Angel MD [address] [id number] [place] [address] Referral ID Status Reason Start Date Expiration Date V isits Requested Visits Authorized [id number] Closed Auto-Generate d Referral 12/06/2022 01/05/2024 1 1 Specialty Diagnoses / Procedures Referred By Contac t Referred To Contact CT IMAGING Diagnoses Other hydronephrosis Procedures CT UROGRAM WO/W IVCON CT ABD & PELVIS W/O CONTRST 1+ BODY REGNS Lyndon Velasquez MD [address] [place] [address] [place] [address] Referral ID Status Reason Start Date Expiration Date V isits Requested Visits Authorized [id number] Closed Auto-Generate d Referral 10/23/2022 11/22/2022 1 [...] April 02, 2022 3 :42pm Power of Projection Printer No April 02, 2022 3:42pm Advance Directive Response Recorded Date/ Time Living Will No December 25, 2023 11:42am Power of Projection Printer No December 24 11:42am Advance Directive Response Recorded Date/ Time Living Will No October 01 10:12am Do you have a Healthcare Power of Projection Printer? No October 01, 2024 10:12am Do you have a Healthcare Power of Projection Printer? No January 25, 2025 12:57pm Medications Administered [...] or prosecute any alcohol or drug abuse patient.[facility] HospitalIn the event this information is protected by the Federal Confidentiality of Alcohol and Drug Abuse Patient Records regulations: The Federal rules restrict any use of the information to criminally investigate or prosecute any alcohol or drug abuse patient.[facility] HospitalIn the event this information is protected by the Federal Confidentiality of Alcohol and Drug Abuse Patient Records regulations: The Federal rules restrict any use of the information to criminally investigate or prosecute any alcohol or drug abuse patient.[facility] HospitalIn the event this information is protected by the Federal Confidentiality of Alcohol and Drug Abuse Patient Records regulations: The Federal rules restrict any use of the information to criminally investigate or prosecute any alcohol or drug abuse patient.[facility] HospitalIn the event this information is protected by the Federal Confidentiality of Alcohol and Drug Abuse Patient Records regulations: The Federal rules restrict any use of the information to criminally investigate or prosecute any alcohol or drug abuse patient.[facility] HospitalIn the event this information is protected by the Federal Confidentiality of Alcohol and Drug Abuse Patient Records regulations: The Federal rules restrict any use of the information to criminally investigate or prosecute any alcohol or drug abuse patient.[facility] HospitalIn the event this information is protected by the Federal Confidentiality of Alcohol and Drug Abuse Patient Records regulations: The Federal rules restrict any use of the information to criminally investigate or prosecute any alcohol or drug abuse patient.[facility] HospitalIn the event this information is protected by the Federal Confidentiality of Alcohol and Drug Abuse Patient Records regulations: The Federal rules restrict any use of the information to criminally investigate or prosecute any alcohol or drug abuse patient.[facility] HospitalIn the event this information is protected by the Federal Confidentiality of Alcohol and Drug Abuse Patient Records regulations: The Federal rules restrict any use of the information to criminally investigate or prosecute any alcohol or drug abuse patient.[facility] HospitalIn the event this information is protected by the Federal Confidentiality of Alcohol and Drug Abuse Patient Records regulations: The Federal rules restrict any use of the information to criminally investigate or prosecute any alcohol or drug abuse patient.[facility] HospitalIn the event this information is protected by the Federal Confidentiality of Alcohol and Drug Abuse Patient Records regulations: The Federal rules restrict any use of the information to criminally investigate or prosecute any alcohol or drug abuse patient.[facility] HospitalIn the event this information is protected by the Federal Confidentiality of Alcohol and Drug Abuse Patient Records regulations: The Federal rules restrict any use of the information to criminally investigate or prosecute any alcohol or drug abuse patient.[facility] HospitalIn the event this information is protected by the Federal Confidentiality of Alcohol and Drug Abuse Patient Records regulations: The Federal rules restrict any use of the information to criminally investigate or prosecute any alcohol or drug abuse patient.[facility] HospitalIn the event this information is protected by the Federal Confidentiality of Alcohol and Drug Abuse Patient Records regulations: The Federal rules restrict any use of the information to criminally investigate or prosecute any alcohol or drug abuse patient.[facility] HospitalIn the event this information is protected by the Federal Confidentiality of Alcohol and Drug Abuse Patient Records regulations: The Federal rules restrict any use of the information to criminally investigate or prosecute any alcohol or drug abuse patient.[facility] HospitalIn the event this information is protected by the Federal Confidentiality of Alcohol and Drug Abuse Patient Records regulations: The Federal rules restrict any use of the information to criminally investigate or prosecute any alcohol or drug abuse patient.[facility] HospitalIn the event this information is protected by the Federal Confidentiality of Alcohol and Drug Abuse Patient Records regulations: The Federal rules restrict any use of the information to criminally investigate or prosecute any alcohol or drug abuse patient.[facility] HospitalIn the event this information is protected by the Federal Confidentiality of Alcohol and Drug Abuse Patient Records regulations: The Federal rules restrict any use of the information to criminally investigate or prosecute any alcohol or drug abuse patient.[facility] HospitalIn the event this information is protected by the Federal Confidentiality of Alcohol and Drug Abuse Patient Records regulations: The Federal rules restrict any use of the information to criminally investigate or prosecute any alcohol or drug abuse patient.[facility] HospitalIn the event this information is protected by the Federal Confidentiality of Alcohol and Drug Abuse Patient Records regulations: The Federal rules restrict any use of the information to criminally investigate or prosecute any alcohol or drug abuse patient.[facility] HospitalIn the event this information is protected by the Federal Confidentiality of Alcohol and Drug Abuse Patient Records regulations: The Federal rules restrict any use of the information to criminally investigate or prosecute any alcohol or drug abuse patient.[facility] HospitalIn the event this information is protected by the Federal Confidentiality of Alcohol and Drug Abuse Patient Records regulations: The Federal rules restrict any use of the information to criminally investigate or prosecute any alcohol or drug abuse patient.[facility] HospitalIn the event this information is protected by the Federal Confidentiality of Alcohol and Drug Abuse Patient Records regulations: The Federal rules restrict any use of the information to criminally investigate or prosecute any alcohol or drug abuse patient.[facility] HospitalIn the event this information is protected by the Federal Confidentiality of Alcohol and Drug Abuse Patient Records regulations: The Federal rules restrict any use of the information to criminally investigate or prosecute any alcohol or drug abuse patient.[facility] HospitalIn the event this information is protected by the Federal Confidentiality of Alcohol and Drug Abuse Patient Records regulations: The Federal rules restrict any use of the information to criminally investigate or prosecute any alcohol or drug abuse patient.[facility] HospitalIn the event this information is protected by the Federal Confidentiality of Alcohol and Drug Abuse Patient Records regulations: The Federal rules restrict any use of the information to criminally investigate or prosecute any alcohol or drug abuse patient.[facility] HospitalIn the event this information is protected by the Federal Confidentiality of Alcohol and Drug Abuse Patient Records regulations: The Federal rules restrict any use of the information to criminally investigate or prosecute any alcohol or drug abuse patient.[facility] HospitalIn the event this information is protected by the Federal Confidentiality of Alcohol and Drug Abuse Patient Records regulations: The Federal rules restrict any use of the information to criminally investigate or prosecute any alcohol or drug abuse patient.[facility] HospitalIn the event this information is protected by the Federal Confidentiality of Alcohol and Drug Abuse Patient Records regulations: The Federal rules restrict any use of the information to criminally investigate or prosecute any alcohol or drug abuse patient.[facility] HospitalIn the event this information is protected by the Federal Confidentiality of Alcohol and Drug Abuse Patient Records regulations: The Federal rules restrict any use of the information to criminally investigate or prosecute any alcohol or drug abuse patient.[facility] HospitalIn the event this information is protected by the Federal Confidentiality of Alcohol and Drug Abuse Patient Records regulations: The Federal rules restrict any use of the information to criminally investigate or prosecute any alcohol or drug abuse patient.[facility] HospitalIn the event this information is protected by the Federal Confidentiality of Alcohol and Drug Abuse Patient Records regulations: The Federal rules restrict any use of the information to criminally investigate or prosecute any alcohol or drug abuse patient.[facility] HospitalIn the event this information is protected by the Federal Confidentiality of Alcohol and Drug Abuse Patient Records regulations: The Federal rules restrict any use of the information to criminally investigate or prosecute any alcohol or drug abuse patient.[facility] HospitalIn the event this information is protected by the Federal Confidentiality of Alcohol and Drug Abuse Patient Records regulations: The Federal rules restrict any use of the information to criminally investigate or prosecute any alcohol or drug abuse patient.[facility] HospitalIn the event this information is protected by the Federal Confidentiality of Alcohol and Drug Abuse Patient Records regulations: The Federal rules restrict any use of the information to criminally investigate or prosecute any alcohol or drug abuse patient.[facility] HospitalIn the event this information is protected by the Federal Confidentiality of Alcohol and Drug Abuse Patient Records regulations: The Federal rules restrict any use of the information to criminally investigate or prosecute any alcohol or drug abuse patient.[facility] HospitalIn the event this information is protected by the Federal Confidentiality of Alcohol and Drug Abuse Patient Records regulations: The Federal rules restrict any use of the information to criminally investigate or prosecute any alcohol or drug abuse patient.[facility] HospitalIn the event this information is protected by the Federal Confidentiality of Alcohol and Drug Abuse Patient Records regulations: The Federal rules restrict any use of the information to criminally investigate or prosecute any alcohol or drug abuse patient.[facility] HospitalIn the event this information is protected by the Federal Confidentiality of Alcohol and Drug Abuse Patient Records regulations: The Federal rules restrict any use of the information to criminally investigate or prosecute any alcohol or drug abuse patient.[facility] HospitalIn the event this information is protected by the Federal Confidentiality of Alcohol and Drug Abuse Patient Records regulations: The Federal rules restrict any use of the information to criminally investigate or prosecute any alcohol or drug abuse patient.[facility] HospitalIn the event this information is protected by the Federal Confidentiality of Alcohol and Drug Abuse Patient Records regulations: The Federal rules restrict any use of the information to criminally investigate or prosecute any alcohol or drug abuse patient.[facility] HospitalIn the event this information is protected by the Federal Confidentiality of Alcohol and Drug Abuse Patient Records regulations: The Federal rules restrict any use of the information to criminally investigate or prosecute any alcohol or drug abuse patient.[facility] HospitalIn the event this information is protected by the Federal Confidentiality of Alcohol and Drug Abuse Patient Records regulations: The Federal rules restrict any use of the information to criminally investigate or prosecute any alcohol or drug abuse patient.[facility] HospitalIn the event this information is protected by the Federal Confidentiality of Alcohol and Drug Abuse Patient Records regulations: The Federal rules restrict any use of the information to criminally investigate or prosecute any alcohol or drug abuse patient.[facility] HospitalIn the event this information is protected by the Federal Confidentiality of Alcohol and Drug Abuse Patient Records regulations: The Federal rules restrict any use of the information to criminally investigate or prosecute any alcohol or drug abuse patient.[facility] Reason for Visit (unrecogniz ed section and [...] Kidney stones Procedures CONSULT TO UROLOGY OFFICE/OUTPATIENT [facility] 60-74 MINUTES Angle Nieto APRN.BUILDING SUPERINTENDENT [address] [place] [address] Referral ID Status Reason Start Date Expiration Date V isits Requested Visits Authorized [id number] Closed PCP Requested Referral 10/15/2022 10/15/2023 1 [...] COUNSELOR MYC OFFICE VISIT Self Angle Nieto APRN.BUILDING SUPERINTENDENT [address] [place] [address] Referral ID Status Reason Start Date Expiration Date V isits Requested Visits Authorized [id number] Outside PCP 01/25/2023 03/26/2023 1 1 Reason [...] & W/CONTRAST MATERIAL Fransisco Angel MD [address] [place] [address] Mr Imaging [facility] Referral ID Status Reason Start Date Expiration Date V isits Requested Visits Authorized [id number] Closed Auto-Generate d Referral 12/06/2022 01/05/2024 [address] Specialty Diagnoses / Procedures Referred By Contac t Referred To Contact CT IMAGING Diagnoses Other hydronephrosis Procedures CT UROGRAM WO/W IVCON CT ABD & PELVIS W/O CONTRST 1+ BODY Lyndon Kerr MD [address] [place] [address] [place] [address] Referral ID Status Reason Start Date Expiration Date V isits Requested Visits Authorized [id number] Closed Auto-Generate d Referral 10/23/2022 11/22/2022 1 [...] 2024 End: October 01, 2024 Dr. Guillermo Hitnon DO Attending Provider Active Start: October 01, [...] Fransisco Angel MD Primary Care Provider Active Attorney Recruiter Relationship Specialty Start Date End Date Fransisco Angel MD [address] [place] [address] PCP - General Internal Medicine 03/23/22 Attorney Recruiter Relationship Specialty Start Date End Date Fransisco Angel MD [address], [place] [id number] PCP - General Internal Medicine 03/23/22 Goals [...] section and content) DATE CREATED AUTHOR 11/14/2022 [facility] DATE CREATED AUTHOR AUTHOR'S ORGANIZ ATION 01/26/2025 [facility] DATE CREATED AUTHOR AUTHOR'S ORGANIZ ATION 03/21/2025 [facility] DATE CREATED AUTHOR AUTHOR'S ORGANIZ ATION 04/16/2025 [facility] FOR RECORDS PERTAINING TO PATIENTS WHO [...] BE BASED ON THE PRIMARY CLINICAL RECORDS. [facility] [employer] [facility]. provides no warranty or guarantee of the accuracy or completeness of information in this document.
--- NOTE | 2025-05-10 22:14 | EDS_ITS ---
HPI History of Present Illness Chief Complaint: Lower Extremity Injury Narrative Narrative: Patient is a 41-year-old female with past medical hypertension, previous foot surgery who presents to the emergency department with a chief complaint of left foot pain. Patient states that she was at the pool today and she went to push off the wall and noted she felt a pop. Patient states that she tried to take a ibuprofen and noted that she developed pain therefore she came here for further evaluation management. [facility] Medical History Hypertension Home Medications ?Medication ?Instructions ?Recorded ?Last Taken ?Type albuterol sulfate 90 mcg/actuation 2 puff inhalation Q 4H PRN PRN 09/20/19 Unk nown Rx aerosol inhaler Wheezing ##1 lisinopril 10 mg tablet 10 mg PO DAILY 12/25/23 Unkn own History tramadol 50 mg tablet 50 mg PO Q6H PRN pain #12 ta bs 01/25/25 Unknown Rx Allergy/AdvReac Type Severity Reaction Status Date / Time naproxen (From Naprosyn) AdvReac Vomiting Verified 05/10/25 21:18 Surgical History Hx of foot surgery Hx of tonsillectomy Hx of cholecystectomy Social History Smoking Status: Never smoker ROS ROS ED ROS Narrative Neurological: Denies any extremities, tingling Musculoskeletal: Complains of left foot pain as noted above Skin: Denies any rashes or lesions EXAM Physical Exam Narrative Exam Narrative: General: Patient lying in bed rest comfortably did not appear to be in acute distress Head: Atraumatic, normocephalic Eyes: PERRL bilaterally, EOMI bilateral, no conjunctival injection noted Neck: Soft, supple, trachea midline Cardiovascular: Regular rate and rhythm Musculoskeletal: Patient has tenderness palpation over the dorsal aspect of her left foot near her 3rd and 4th toe Extremities: DP pulses +2/4 in the bilateral lower extremities, +5/5 strength noted in the bilateral upper and lower extremities Neurological: Patient following commands as she was at [facility] the year is 2024 Skin: Warm, dry, intact no rashes or lesions noted Const Vital Signs: 05/10/25 21:16 Temperature 98.6 F Temperature Source Oral Pulse Rate 90 Respiratory Rate 18 Blood Pressure 172/99 H Blood Pressure Mean 123 Pulse Ox 98 Oxygen Delivery Method Room Air MDM MDM MDM Narrative Medical decision making narrative: Patient is a 41-year-old female who presented to the emergency department the chief complaint of left foot pain. On the differential diagnosis includes but not limited to metatarsal fracture, ligamentous injury, tendon injury. Once workup is obtained reviewed she will be reevaluated. Patient had workup started prior to my evaluation Patient x-ray reviewed and showed soft tissue swelling without acute fracture. Discussed results with the patient we will give her Tylenol here in the emergency department as she drove to the emergency department and wants to drive home. 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 She is advised to return with worsening symptoms or other concerns. She is agreeable this plan all question concerns answered she was discharged home in stable condition. Radiography Diagnostic Testing: Clinical Impression(s) from Imaging Studies Foot X-Ray 05/10/25 21:20 IMPRESSION: 1. Soft tissue swelling without acute fracture. 2. If symptoms persist, further evaluation with CT is recommended. Reading [facility] Triage Chief Complaint: Lower Extremity Injury ED Provider: Jerry Cabrales Dx/Rx/DC Orders Clinical Impression: Acute pain of left foot, Encounter for medical screening examination, History of foot surgery Prescriptions: No Action albuterol sulfate 1 INHALER inhaler 2 puff inhalation Q4H PRN PRN (Reason: Wheezing) Qty: 1 0RF tramadol 50 mg tablet 50 mg PO Q6H PRN (Reason: pain) Qty: 12 0RF lisinopril 10 mg tablet 10 mg PO DAILY Primary Care Provider: Fransisco Angel Referrals: Fransisco Angel MD [Primary Care Provider] - Activity Restrictions/Additional Instructions: Your x-ray did not show any acute findings. Rotate Tylenol and ibuprofen [id number] for pain control when you do the same take something every 3 hours with max dose Tylenol in 24 hours 4000 mg. Max dose of ibuprofen 3200 mg in 24 hours. Follow-up with your foot doctor in the outpatient setting. Return with worsening symptoms or any other concerns Print Language: German Disposition Disposition: Home, Self Care
--- NOTE | 2025-05-10 22:14 | EDS_ITS ---
HPI History of Present Illness Chief Complaint: Lower Extremity Injury Narrative Narrative: Patient is a 41-year-old female with past medical hypertension, previous foot surgery who presents to the emergency department with a chief complaint of left foot pain. Patient states that she was at the pool today and she went to push off the wall and noted she felt a pop. Patient states that she tried to take a ibuprofen and noted that she developed pain therefore she came here for further evaluation management. [facility] Medical History Hypertension Home Medications ?Medication ?Instructions ?Recorded ?Last Taken ?Type albuterol sulfate 90 mcg/actuation 2 puff inhalation Q 4H PRN PRN 09/20/19 Unk nown Rx aerosol inhaler Wheezing ##1 lisinopril 10 mg tablet 10 mg PO DAILY 12/25/23 Unkn own History tramadol 50 mg tablet 50 mg PO Q6H PRN pain #12 ta bs 01/25/25 Unknown Rx Allergy/AdvReac Type Severity Reaction Status Date / Time naproxen (From Naprosyn) AdvReac Vomiting Verified 05/10/25 21:18 Surgical History Hx of foot surgery Hx of tonsillectomy Hx of cholecystectomy Social History Smoking Status: Never smoker ROS ROS ED ROS Narrative Neurological: Denies any extremities, tingling Musculoskeletal: Complains of left foot pain as noted above Skin: Denies any rashes or lesions EXAM Physical Exam Narrative Exam Narrative: General: Patient lying in bed rest comfortably did not appear to be in acute distress Head: Atraumatic, normocephalic Eyes: PERRL bilaterally, EOMI bilateral, no conjunctival injection noted Neck: Soft, supple, trachea midline Cardiovascular: Regular rate and rhythm Musculoskeletal: Patient has tenderness palpation over the dorsal aspect of her left foot near her 3rd and 4th toe Extremities: DP pulses +2/4 in the bilateral lower extremities, +5/5 strength noted in the bilateral upper and lower extremities Neurological: Patient following commands as she was at [facility] the year is 2024 Skin: Warm, dry, intact no rashes or lesions noted Const Vital Signs: 05/10/25 21:16 Temperature 98.6 F Temperature Source Oral Pulse Rate 90 Respiratory Rate 18 Blood Pressure 172/99 H Blood Pressure Mean 123 Pulse Ox 98 Oxygen Delivery Method Room Air MDM MDM MDM Narrative Medical decision making narrative: Patient is a 41-year-old female who presented to the emergency department the chief complaint of left foot pain. On the differential diagnosis includes but not limited to metatarsal fracture, ligamentous injury, tendon injury. Once workup is obtained reviewed she will be reevaluated. Patient had workup started prior to my evaluation Patient x-ray reviewed and showed soft tissue swelling without acute fracture. Discussed results with the patient we will give her Tylenol here in the emergency department as she drove to the emergency department and wants to drive home. Patient given crutches she was advised to follow-up with her electrician [employer] that did her previous surgery. She is advised to return with worsening symptoms or other concerns. She is agreeable this plan all question concerns answered she was discharged home in stable condition. Radiography Diagnostic Testing: Clinical Impression(s) from Imaging Studies Foot X-Ray 05/10/25 21:20 IMPRESSION: 1. Soft tissue swelling without acute fracture. 2. If symptoms persist, further evaluation with CT is recommended. [facility] T[facility] Chief Complaint: Lower Extremity Injury ED Provider: Jerry Cabrales Dx/Rx/DC Orders Clinical Impression: Acute pain of left foot, Encounter for medical screening examination, History of foot surgery Prescriptions: No Action albuterol sulfate 1 INHALER inhaler 2 puff inhalation Q4H PRN PRN (Reason: Wheezing) Qty: 1 0RF tramadol 50 mg tablet 50 mg PO Q6H PRN (Reason: pain) Qty: 12 0RF lisinopril 10 mg tablet 10 mg PO DAILY Primary Care Provider: Fransisco Angel Referrals: Fransisco Angel MD [Primary Care Provider] - Activity Restrictions/Additional Instructions: Your x-ray did not show any acute findings. Rotate Tylenol and ibuprofen [id number] for pain control when you do the same take something every 3 hours with max dose Tylenol in 24 hours 4000 mg. Max dose of ibuprofen 3200 mg in 24 hours. Follow-up with your foot doctor in the outpatient setting. Return with worsening symptoms or any other concerns Print Language: Bel[place]ian Disposition Disposition: Home, Self Care
[2025-05-10 23:02] VITALS: BP 132/74; PULSE 82; RESP 18; TEMP 36.8; O2SAT 100
== END 2025-05-10 23:03 | disposition home or self-care (01) ==
PROVIDERS: Emergency Provider Emergency Medicine; PCP Internal Medicine; Visit Provider Emergency Medicine
DX: M79.672 Pain in left foot (principal); M79.89 Other specified soft tissue disorders; I10 Essential (primary) hypertension; Z98.890 Other specified postprocedural states
CPT/HCPCS: 73630; 99283

== ENCOUNTER 2025-07-21 13:08 | Emergency (ER) | payer OTHER, SELFPAY ==
[2025-07-21 13:10] VITALS: BP 126/74; PULSE 99; RESP 18; TEMP 36.6; O2SAT 99; BMI 47.9
[2025-07-21 13:19] VITALS: BP 136/77; PULSE 92; RESP 18; O2SAT 100
[2025-07-21 13:28] LABS: SITE Not entered; VBG BASE EXCESS 1 mmol/L (-1.0-3.5); VBG PO2 37 mmHg (25-40); VBG SO2 78 % (50-70); VBG TCO2 25 mmol/L (23-33)
[2025-07-21 13:33] LABS: Hematocrit 35.2 % (37-47); Hemoglobin 11.6 g/dL (12.0-15.0); Immature Granulocytes Count 0.060 X10^3/uL (0.0-0.0); Mean Corp Hgb Conc 33.0 g/dL (32-36); Mean Corpuscular Volume 84.8 fL (81-99); Mean Platelet Vol. 8.4 fl (6.2-12.0); NRBC Flagged by Analyzer 0 % (0-5); POSITIVE DIFFERENTIAL YES; Platelet Count 470 K/mm3 (150-450); RBC Distribution Width CV 13.3 % (11.6-14.6); RBC Distribution Width SD 41.1 fl (35.1-43.9); Red Blood Count 4.15 M/mm3 (4.2-5.4); White Blood Count 15.1 K/mm3 (4.4-11.0)
[2025-07-21 13:35] LABS: Differential Indicated SCAN CRITERIA MET
[2025-07-21 14:03] LABS: AST(SGOT) 24 U/L (<=31); Alanine Aminotransfer ALT/SGPT 18 U/L (<=34); Albumin, Serum 4.4 g/dL (3.5-5.0); Alkaline Phosphatase 85 U/L (35-104); Anion Gap 15 (5-15); BUN 9 mg/dL (4-19); BUN/Creat Ratio 13.8 RATIO (10-20); Calcium,Total 9.1 mg/dL (7.6-11.0); Carbon Dioxide 21.5 mmol/L (21.0-32.0); Chloride 102 mmol/L (98-108); Estimated Creatinine Clearance 157.08 ml/min (50-250); Globulin 2.8 g/dL (2.2-4.2); Glucose 161 mg/dL (70-99); Potassium 3.3 mmol/L (3.3-5.1)
[2025-07-21 14:18] VITALS: BP 160/88; PULSE 103; RESP 24; O2SAT 100
[2025-07-21 15:38] VITALS: BP 152/90; PULSE 80; RESP 14; TEMP 36.4; O2SAT 100
== END 2025-07-21 15:39 | disposition home or self-care (01) ==
PROVIDERS: Emergency Provider Emergency Medicine; PCP Internal Medicine; Visit Provider Emergency Medicine
DX: R06.4 Hyperventilation (principal); R07.89 Other chest pain; F41.9 Anxiety disorder, unspecified; I10 Essential (primary) hypertension; Z79.899 Other long term (current) drug therapy
CPT/HCPCS: 71045; 80053; 82803; 85025; 93005; 99285; A4216